=== PATIENT | male | born 1980 | race Caucasian/White ===

== ENCOUNTER 2016-11-22 20:37 | Inpatient (IN) ==
--- NOTE | 2016-11-22 20:45 | Emergency Department Note ---
Disposition Clinical Impression: Acute psychosis, Abnormal urinalysis Disposition: Still a Patient Referrals: NO,PCP [Primary Care Provider] - General Adult HPI - General Chief complaint: ED Psychiatric Symptoms Stated complaint: hallucinations - History of Present Illness HPI Narrative: 36-year-old male with a history of schizophrenia reports to the emergency department via EMS, there is concern for visual and auditory hallucinations. The patient denies any falls or injuries. When asked what is wrong he reports he shows been seeing and hearing things. There is no history of specific physical complaint, the patient reports that he has been masturbating a lot. There is no history of new onset chest pain or maia shortness of breath. There is no history of acute abdominal pain vomiting or diarrhea. The patient has had no trouble moving his arms or legs independently. There is no history of headache neck stiffness rash or fever no convulsion. There is no history of current anticoagulation therapy. The patient has been seen frequently in this emergency department for various complaints. He has a history of psychiatric hospitalization. The patient's ability to give a history is limited. - Related Data Previous Rx's Medication Instructions Recorded LORazepam [Ativan] 1 mg PO BID PRN #60 tablet 07/14/16 Lisinopril [Zestril] 5 mg PO DAILY #30 tablet 07/14/16 OLANZapine [Zyprexa] 15 mg PO HS #30 tablet 07/14/16 TraZODone 50 mg PO HS PRN #30 tablet 07/14/16 Allergies Allergy/AdvReac Type Severity Reaction Status Date / Time No Known Allergies Allergy Verified 11/22/16 20:45 Limitations: ROS unobtainable due to patients medical condition Past Medical History - Past Medical History Medical history: Reports: hyperlipidemia, hypertension, seizures Surgical history: Reports: appendectomy, arthroscopy Psychiatric history: Reports: anxiety, previous psychiatric hospitalization - Social History Smoking Status: Current every day smoker Smokeless Tobacco Status: No Alcohol use: Reports: heavy Drug use: Reports: opiates, marijuana, methamphetamine Physical Exam - General Limitations: altered mental status General appearance: alert - Head Head exam: atraumatic, normocephalic, normal inspection - Eye Eye exam: Present: normal appearance, PERRL, EOMI. Absent: scleral icterus, conjunctival injection, miosis, mydriasis - ENT ENT exam: normal exam, normal oropharynx, mucous membranes moist, TM's normal bilaterally, normal external ear exam - Neck Neck exam: Present: normal inspection, full ROM, trachea midline. Absent: tenderness - Chest Chest inspection: Present: normal inspection, symmetric chest wall rise. Absent : tenderness - Respiratory Respiratory exam: Present: normal lung sounds bilaterally. Absent: respiratory distress - Cardiovascular Cardiovascular exam: Present: regular rate, normal rhythm, normal heart sounds - Abdominal Exam Abdominal exam: Present: soft, Non-Tender, normal bowel sounds. Absent: tenderness, distention, guarding, rebound, rigidity, trauma, pulsatile mass - Extremities Exam Extremities exam: Present: normal inspection, full ROM, normal capillary refill. Absent: tenderness, pedal edema, joint swelling, calf tenderness - Expanded Lower Extremity Exam Lower leg exam: Absent: Homans' sign Neurovascular/Tendon exam: Absent: pulse deficit, motor deficit, sensory deficit , tendon deficit, extremity cold to touch, pallor - Back Exam Back exam: Present: normal inspection, full ROM. Absent: tenderness, CVA tenderness (R), CVA tenderness (L), vertebral tenderness - Neurological Exam Neurological exam: Present: alert, CN II-XII intact, normal gait. Absent: motor sensory deficit - Psychiatric Psychiatric exam: Present: flat affect - Skin Skin exam: Present: warm, dry, intact, normal color. Absent: rash, cyanosis, diaphoresis, erythema, pallor, mottled Course Vital Signs Temperature 98.4 F 11/22/16 20:41 Pulse Rate 86 11/22/16 20:41 Respiratory Rate 14 11/22/16 20:41 Blood Pressure 152/98 11/22/16 20:41 O2 Sat by Pulse Oximetry 97 11/22/16 20:41 Temperature 98.4 F 11/22/16 20:41 Pulse Rate 86 11/22/16 20:41 Respiratory Rate 14 11/22/16 20:41 Blood Pressure 152/98 11/22/16 20:41 O2 Sat by Pulse Oximetry 97 11/22/16 20:41 Oxygen Delivery Oxygen Delivery Room Air Medical Decision Making - MDM Narrative Medical decision making narrative: The patient appears to be stable from a medical standpoint. The patient has a history of psychiatric disease and appears to be decompensating. We have consulted the psychiatric service for evaluation. I suspect the patient will be admitted to the psychiatric unit. It is near shift change, I have checked the patient out to VADIM Delgado and Dr. Tanner who will determine final diagnosis and disposition. - Lab Data Lab results reviewed: Yes I reviewed the patient's lab results. Result diagrams: 11/22/16 20:56 11/22/16 20:56 Lab Results 11/22/16 11/22/16 11/22/16 Range/Units 20:45 20:45 20:56 WBC 12.9 H (4.3-11.1) K/mcL RBC 4.70 (4.19-5.50) M/mcL Hgb 14.9 (12.9-16.9) g/dL Hct 43.9 (37.5-50.1) % MCV 93.4 (83.0-100.0) fL MCH 31.7 (28.0-33.3) pg MCHC 33.9 (31.6-35.5) g/dL RDW 13.4 (11.5-14.5) % Plt Count 387 (140-400) K/mcL MPV 10.2 (9.4-12.4) fL Immature Gran % 0.4 (0-4) % Seg Neutrophils % 68.3 % Lymphocytes % 21.6 % Monocytes % 8.2 % Eosinophils % 1.2 % Basophils % 0.3 % Neutrophils # 8.8 (1.6-8.9) K/mcL Lymphocytes # 2.8 (0.6-4.6) K/mcL Monocytes # 1.1 (0.0-1.3) K/mcL Eosinophils # 0.2 (0.0-0.6) K/mcL Basophils # 0.0 (0.0-0.2) K/mcL Immature Plt Fraction 3.6 (1.1-6.1) % Sodium (136-145) mEq/L Potassium (3.5-4.5) mEq/L Chloride (98-109) mEq/L Carbon Dioxide (19-29) mEq/L BUN (8-26) mg/dL Creatinine (0.72-1.25) mg/dL Est GFR ( Amer) (> 60) Est GFR (Non-Af Amer) (> 60) BUN/Creatinine Ratio (6-26) Glucose (70-99) mg/dL Calculated Osmolality (280-300) Calcium (8.6-10.8) mg/dL Total Bilirubin (0.2-1.2) mg/dL Direct Bilirubin (0.0-0.5) mg/dL Indirect Bilirubin (0.0-1.2) mg/dL AST (5-34) Units/L ALT (0-55) Units/L Alkaline Phosphatase (38-126) Units/L Troponin I (0-0.03) ng/mL Serum Total Protein (6.0-8.3) g/dL Albumin (3.5-5.0) g/dL Globulin (2.4-3.5) g/dL Albumin/Globulin Ratio (1.1-2.2) Lipase (8-78) Units/L Urine Color Yellow (Yellow) Urine Clarity Clear (Clear) Urine pH 6.0 (5.0-8.0) pH Units Ur Specific [place] 1.018 (1.010-1.025) Urine Protein Negative (Neg-Trace) mg/dL Urine Glucose (UA) Normal (Normal) mg/dL Urine Ketones Negative (Negative) mg/dL Urine Blood Negative (Negative) Urine Nitrite Negative (Negative) Urine Bilirubin Negative (Negative) Urine Urobilinogen Normal (Normal) mg/dL Ur Leukocyte Esterase Small H (Negative) Urine Microscopic RBC 0-3 (0-3) per hpf Urine Microscopic WBC 5-15 H (0-3) per hpf Ur Squamous Epith Cells Moderate H (None-Few) per lpf Urine Bacteria None Seen (None-Few) per hpf Hyaline Casts None Seen (None-Few) per lpf Salicylates (15-30) mg/dL Urine Opiates Screen Negative (Ctexuk=922) ng/mL Acetaminophen (10-30) mcg/mL Ur Barbiturates Screen Negative (Tcheuz=484) ng/mL Ur Phencyclidine Scrn Negative (Cutoff=25) ng/mL Ur Amphetamines Screen Negative (Wtfsip=4324) ng/mL U Benzodiazepines Scrn Negative (Imtzuy=423) ng/mL Urine Cocaine Screen Negative (Cutoff= 300) ng/mL U Marijuana (THC) Screen Negative (Cutoff = 50) ng/mL Ethyl Alcohol (0-10) mg/dL 11/22/16 11/22/16 Range/Units 20:56 20:56 WBC (4.3-11.1) K/mcL RBC (4.19-5.50) M/mcL Hgb (12.9-16.9) g/dL Hct (37.5-50.1) % MCV (83.0-100.0) fL MCH (28.0-33.3) pg MCHC (31.6-35.5) g/dL RDW (11.5-14.5) % Plt Count (140-400) K/mcL MPV (9.4-12.4) fL Immature Gran % (0-4) % Seg Neutrophils % % Lymphocytes % % Monocytes % % Eosinophils % % Basophils % % Neutrophils # (1.6-8.9) K/mcL Lymphocytes # (0.6-4.6) K/mcL Monocytes # (0.0-1.3) K/mcL Eosinophils # (0.0-0.6) K/mcL Basophils # (0.0-0.2) K/mcL Immature Plt Fraction (1.1-6.1) % Sodium 140 (136-145) mEq/L Potassium 3.6 (3.5-4.5) mEq/L Chloride 107 (98-109) mEq/L Carbon Dioxide 21 (19-29) mEq/L BUN 13 (8-26) mg/dL Creatinine 0.98 (0.72-1.25) mg/dL Est GFR ( Amer) > 60 (> 60) Est GFR (Non-Af Amer) > 60 (> 60) BUN/Creatinine Ratio 13 (6-26) Glucose 100 H (70-99) mg/dL Calculated Osmolality 290 (280-300) Calcium 9.9 (8.6-10.8) mg/dL Total Bilirubin 0.5 (0.2-1.2) mg/dL Direct Bilirubin 0.2 (0.0-0.5) mg/dL Indirect Bilirubin 0.3 (0.0-1.2) mg/dL AST 25 (5-34) Units/L ALT 27 (0-55) Units/L Alkaline Phosphatase 86 (38-126) Units/L Troponin I 0.00 (0-0.03) ng/mL Serum Total Protein 8.0 (6.0-8.3) g/dL Albumin 4.4 (3.5-5.0) g/dL Globulin 3.6 H (2.4-3.5) g/dL Albumin/Globulin Ratio 1.2 (1.1-2.2) Lipase 15 (8-78) Units/L Urine Color (Yellow) Urine Clarity (Clear) Urine pH (5.0-8.0) pH Units Ur Specific [place] (1.010-1.025) Urine Protein (Neg-Trace) mg/dL Urine Glucose (UA) (Normal) mg/dL Urine Ketones (Negative) mg/dL Urine Blood (Negative) Urine Nitrite (Negative) Urine Bilirubin (Negative) Urine Urobilinogen (Normal) mg/dL Ur Leukocyte Esterase (Negative) Urine Microscopic RBC (0-3) per hpf Urine Microscopic WBC (0-3) per hpf Ur Squamous Epith Cells (None-Few) per lpf Urine Bacteria (None-Few) per hpf Hyaline Casts (None-Few) per lpf Salicylates 5.7 L (15-30) mg/dL Urine Opiates Screen (Nnpcbe=039) ng/mL Acetaminophen < 1.0 L (10-30) mcg/mL Ur Barbiturates Screen (Migkaq=716) ng/mL Ur Phencyclidine Scrn (Cutoff=25) ng/mL Ur Amphetamines Screen (Idkumr=0538) ng/mL U Benzodiazepines Scrn (Dsojia=275) ng/mL Urine Cocaine Screen (Cutoff= 300) ng/mL U Marijuana (THC) Screen (Cutoff = 50) ng/mL Ethyl Alcohol < 10 (0-10) mg/dL
[2016-11-22 21:09] LABS: Basophils % 0.3 %; Eosinophils # 0.2 K/mcL (0.0-0.6); Eosinophils % 1.2 %; Hematocrit 43.9 % (37.5-50.1); Hemoglobin 14.9 g/dL (12.9-16.9); Immature Granulocytes % 0.4 % (0-4); Immature Platelets 3.6 % (1.1-6.1); Lymphocytes # 2.8 K/mcL (0.6-4.6); Lymphocytes % 21.6 %; Mean Corpuscular HGB Conc 33.9 g/dL (31.6-35.5); Mean Corpuscular Hemoglobin 31.7 pg (28.0-33.3); Mean Corpuscular Volume 93.4 fL (83.0-100.0); Mean Platelet Volume 10.2 fL (9.4-12.4); Monocytes # 1.1 K/mcL (0.0-1.3); Monocytes % 8.2 %; Neutrophils # 8.8 K/mcL (1.6-8.9); Platelet Count 387 K/mcL (140-400); Red Cell Distribution Width 13.4 % (11.5-14.5); Segmented Neutrophils % 68.3 %
[2016-11-22 21:14] LABS: Bilirubin,Urine Negative (Negative); Blood,Urine Negative (Negative); Clarity,Urine Clear (Clear); Color,Urine Yellow (Yellow); Glucose,Urine (UA) Normal (Normal); Ketones,Urine Negative (Negative); Leukocyte Esterase,Urine Small (Negative); Nitrite,Urine Negative (Negative); Protein,Urine Negative (Neg-Trace); Specific Gravity,Urine 1.018 (1.010-1.025); Urobilinogen,Urine Normal (Normal)
[2016-11-22 21:17] LABS: Amphetamine Screen,Urine Negative ng/mL (Cutoff=1000); Bacteria,Urine None Seen per hpf (None-Few); Barbiturate Screen,Urine Negative ng/mL (Cutoff=200); Benzodiazepines Screen,Urine Negative ng/mL (Cutoff=200); Cannabinoid Screen,Urine Negative ng/mL (Cutoff = 50); Cocaine Screen,Urine Negative ng/mL (Cutoff= 300); Hyaline Casts,Urine None Seen per lpf (None-Few); Opiate Screen,Urine Negative ng/mL (Cutoff=300); Phencyclidine Screen,Urine Negative ng/mL (Cutoff=25); RBC,Urine 0-3 per hpf (0-3); Squamous Epithelial Cell,Urine Moderate per lpf (None-Few)
[2016-11-22 21:25] LABS: Acetaminophen < 1.0 mcg/mL (10-30); Alanine Aminotransferase 27 Units/L (0-55); Albumin 4.4 g/dL (3.5-5.0); Albumin/Globulin Ratio 1.2 (1.1-2.2); Alkaline Phosphatase 86 Units/L (38-126); Aspartate Amino Transferase 25 Units/L (5-34); BUN/Creatinine Ratio 13 (6-26); Bilirubin,Direct 0.2 mg/dL (0.0-0.5); Bilirubin,Indirect 0.3 mg/dL (0.0-1.2); Bilirubin,Total 0.5 mg/dL (0.2-1.2); Blood Urea Nitrogen 13 mg/dL (8-26); Calcium 9.9 mg/dL (8.6-10.8); Carbon Dioxide 21 mEq/L (19-29); Chloride 107 mEq/L (98-109); Ethanol < 10 mg/dL (0-10); Globulin 3.6 g/dL (2.4-3.5); Glucose 100 mg/dL (70-99); Lipase 15 Units/L (8-78); Osmolality,Calculated 290 (280-300); Potassium 3.6 mEq/L (3.5-4.5); Salicylate 5.7 mg/dL (15-30); Sodium 140 mEq/L (136-145); eGFR For African Americans > 60 (> 60); eGFR For Non-African Americans > 60 (> 60)
--- NOTE | 2016-11-22 23:35 | Emergency Department Note ---
Disposition Clinical Impression: Acute psychosis, Abnormal urinalysis Disposition: Admitted As Inpatient Condition: Fair Referrals: NO,PCP [Primary Care Provider] - General Adult HPI - General Chief complaint: ED Psychiatric Symptoms Stated complaint: hallucinations Time Seen by Provider: 11/22/16 23:22 Source: patient, EMS Limitations: altered mental status - History of Present Illness Pain Scale: 0 - Related Data Previous Rx's Medication Instructions Recorded LORazepam [Ativan] 1 mg PO BID PRN #60 tablet 07/14/16 Lisinopril [Zestril] 5 mg PO DAILY #30 tablet 07/14/16 OLANZapine [Zyprexa] 15 mg PO HS #30 tablet 07/14/16 TraZODone 50 mg PO HS PRN #30 tablet 07/14/16 Allergies Allergy/AdvReac Type Severity Reaction Status Date / Time No Known Allergies Allergy Verified 11/22/16 20:45 Past Medical History - Past Medical History Medical history: Reports: hyperlipidemia, hypertension, seizures Surgical history: Reports: appendectomy, arthroscopy Psychiatric history: Reports: anxiety, previous psychiatric hospitalization - Social History Smoking Status: Current every day smoker Smokeless Tobacco Status: No Alcohol use: Reports: heavy Drug use: Reports: opiates, marijuana, methamphetamine Physical Exam - General Limitations: altered mental status General appearance: alert Course Course Narrative: This patient was signed out to me at shift change from Dr. Sebastian. Please refer to his note for complete details of history and physical examination. At shift change the patient is awaiting psychiatric evaluation. Patient complains of severe left-sided headache for the past 4 days. He denies any injury. A CT of the head without contrast was ordered. Head CT was negative. Patient was evaluated by the psychiatry service and is being admitted to the psychiatric inpatient unit. Vital Signs Temperature 98.4 F 11/22/16 20:41 Pulse Rate 86 11/22/16 20:41 Respiratory Rate 14 11/22/16 20:41 Blood Pressure 152/98 11/22/16 20:41 O2 Sat by Pulse Oximetry 97 11/22/16 20:41 Temperature 98.4 F 11/22/16 20:41 Pulse Rate 76 11/23/16 01:02 Respiratory Rate 14 11/23/16 01:02 Blood Pressure 137/92 11/23/16 01:02 O2 Sat by Pulse Oximetry 98 11/23/16 01:02 Oxygen Delivery Oxygen Delivery Room Air Medical Decision Making - Lab Data Result diagrams: 11/22/16 20:56 11/22/16 20:56 Lab Results 11/22/16 11/22/16 11/22/16 Range/Units 20:45 20:45 20:56 WBC 12.9 H (4.3-11.1) K/mcL RBC 4.70 (4.19-5.50) M/mcL Hgb 14.9 (12.9-16.9) g/dL Hct 43.9 (37.5-50.1) % MCV 93.4 (83.0-100.0) fL MCH 31.7 (28.0-33.3) pg MCHC 33.9 (31.6-35.5) g/dL RDW 13.4 (11.5-14.5) % Plt Count 387 (140-400) K/mcL MPV 10.2 (9.4-12.4) fL Immature Gran % 0.4 (0-4) % Seg Neutrophils % 68.3 % Lymphocytes % 21.6 % Monocytes % 8.2 % Eosinophils % 1.2 % Basophils % 0.3 % Neutrophils # 8.8 (1.6-8.9) K/mcL Lymphocytes # 2.8 (0.6-4.6) K/mcL Monocytes # 1.1 (0.0-1.3) K/mcL Eosinophils # 0.2 (0.0-0.6) K/mcL Basophils # 0.0 (0.0-0.2) K/mcL Immature Plt Fraction 3.6 (1.1-6.1) % Sodium (136-145) mEq/L Potassium (3.5-4.5) mEq/L Chloride (98-109) mEq/L Carbon Dioxide (19-29) mEq/L BUN (8-26) mg/dL Creatinine (0.72-1.25) mg/dL Est GFR ( Amer) (> 60) Est GFR (Non-Af Amer) (> 60) BUN/Creatinine Ratio (6-26) Glucose (70-99) mg/dL Calculated Osmolality (280-300) Calcium (8.6-10.8) mg/dL Total Bilirubin (0.2-1.2) mg/dL Direct Bilirubin (0.0-0.5) mg/dL Indirect Bilirubin (0.0-1.2) mg/dL AST (5-34) Units/L ALT (0-55) Units/L Alkaline Phosphatase (38-126) Units/L Troponin I (0-0.03) ng/mL Serum Total Protein (6.0-8.3) g/dL Albumin (3.5-5.0) g/dL Globulin (2.4-3.5) g/dL Albumin/Globulin Ratio (1.1-2.2) Lipase (8-78) Units/L Urine Color Yellow (Yellow) Urine Clarity Clear (Clear) Urine pH 6.0 (5.0-8.0) pH Units Ur Specific [place] 1.018 (1.010-1.025) Urine Protein Negative (Neg-Trace) mg/dL Urine Glucose (UA) Normal (Normal) mg/dL Urine Ketones Negative (Negative) mg/dL Urine Blood Negative (Negative) Urine Nitrite Negative (Negative) Urine Bilirubin Negative (Negative) Urine Urobilinogen Normal (Normal) mg/dL Ur Leukocyte Esterase Small H (Negative) Urine Microscopic RBC 0-3 (0-3) per hpf Urine Microscopic WBC 5-15 H (0-3) per hpf Ur Squamous Epith Cells Moderate H (None-Few) per lpf Urine Bacteria None Seen (None-Few) per hpf Hyaline Casts None Seen (None-Few) per lpf Salicylates (15-30) mg/dL Urine Opiates Screen Negative (Pauymj=250) ng/mL Acetaminophen (10-30) mcg/mL Ur Barbiturates Screen Negative (Akvobk=660) ng/mL Ur Phencyclidine Scrn Negative (Cutoff=25) ng/mL Ur Amphetamines Screen Negative (Vagiaw=4055) ng/mL U Benzodiazepines Scrn Negative (Nvjtfk=784) ng/mL Urine Cocaine Screen Negative (Cutoff= 300) ng/mL U Marijuana (THC) Screen Negative (Cutoff = 50) ng/mL Ethyl Alcohol (0-10) mg/dL 11/22/16 11/22/16 Range/Units 20:56 20:56 WBC (4.3-11.1) K/mcL RBC (4.19-5.50) M/mcL Hgb (12.9-16.9) g/dL Hct (37.5-50.1) % MCV (83.0-100.0) fL MCH (28.0-33.3) pg MCHC (31.6-35.5) g/dL RDW (11.5-14.5) % Plt Count (140-400) K/mcL MPV (9.4-12.4) fL Immature Gran % (0-4) % Seg Neutrophils % % Lymphocytes % % Monocytes % % Eosinophils % % Basophils % % Neutrophils # (1.6-8.9) K/mcL Lymphocytes # (0.6-4.6) K/mcL Monocytes # (0.0-1.3) K/mcL Eosinophils # (0.0-0.6) K/mcL Basophils # (0.0-0.2) K/mcL Immature Plt Fraction (1.1-6.1) % Sodium 140 (136-145) mEq/L Potassium 3.6 (3.5-4.5) mEq/L Chloride 107 (98-109) mEq/L Carbon Dioxide 21 (19-29) mEq/L BUN 13 (8-26) mg/dL Creatinine 0.98 (0.72-1.25) mg/dL Est GFR ( Amer) > 60 (> 60) Est GFR (Non-Af Amer) > 60 (> 60) BUN/Creatinine Ratio 13 (6-26) Glucose 100 H (70-99) mg/dL Calculated Osmolality 290 (280-300) Calcium 9.9 (8.6-10.8) mg/dL Total Bilirubin 0.5 (0.2-1.2) mg/dL Direct Bilirubin 0.2 (0.0-0.5) mg/dL Indirect Bilirubin 0.3 (0.0-1.2) mg/dL AST 25 (5-34) Units/L ALT 27 (0-55) Units/L Alkaline Phosphatase 86 (38-126) Units/L Troponin I 0.00 (0-0.03) ng/mL Serum Total Protein 8.0 (6.0-8.3) g/dL Albumin 4.4 (3.5-5.0) g/dL Globulin 3.6 H (2.4-3.5) g/dL Albumin/Globulin Ratio 1.2 (1.1-2.2) Lipase 15 (8-78) Units/L Urine Color (Yellow) Urine Clarity (Clear) Urine pH (5.0-8.0) pH Units Ur Specific [place] (1.010-1.025) Urine Protein (Neg-Trace) mg/dL Urine Glucose (UA) (Normal) mg/dL Urine Ketones (Negative) mg/dL Urine Blood (Negative) Urine Nitrite (Negative) Urine Bilirubin (Negative) Urine Urobilinogen (Normal) mg/dL Ur Leukocyte Esterase (Negative) Urine Microscopic RBC (0-3) per hpf Urine Microscopic WBC (0-3) per hpf Ur Squamous Epith Cells (None-Few) per lpf Urine Bacteria (None-Few) per hpf Hyaline Casts (None-Few) per lpf Salicylates 5.7 L (15-30) mg/dL Urine Opiates Screen (Mhwaao=443) ng/mL Acetaminophen < 1.0 L (10-30) mcg/mL Ur Barbiturates Screen (Hiryoj=710) ng/mL Ur Phencyclidine Scrn (Cutoff=25) ng/mL Ur Amphetamines Screen (Uuwpiq=6520) ng/mL U Benzodiazepines Scrn (Cpoihg=617) ng/mL Urine Cocaine Screen (Cutoff= 300) ng/mL U Marijuana (THC) Screen (Cutoff = 50) ng/mL Ethyl Alcohol < 10 (0-10) mg/dL
[2016-11-23] MEDS ORDERED: *HR* LORazepam 1 MG TABLET PO PRN ×5 (03:04→11:07)
[2016-11-23] MEDS ORDERED: *HR* LORazepam 2 MG/ML VIAL IM PRN ×4 (03:04→11:07)
[2016-11-23] MEDS ORDERED: Mag Hydrox/Al Hydrox/Simeth 30 ML UDC PO PRN (03:04)
[2016-11-23] MEDS ORDERED: Haloperidol Lactate 5 MG/ML VIAL IM PRN (03:04)
[2016-11-23] MEDS ORDERED: MOM Conc 10 ML UD.LIQ PO PRN (03:04)
[2016-11-23] MEDS: hydrOXYzine pamoate 25 MG CAPSULE PO PRN (03:29)
[2016-11-23] MEDS: traZODone 50 MG TABLET PO PRN (03:30)
[2016-11-23] MEDS: Ibuprofen 400 MG TABLET PO PRN (03:30)
[2016-11-23] MEDS: Vitamin B Complex/Vit C/Vit E 1 EACH TABLET PO SCH (09:00)
--- NOTE | 2016-11-23 10:13 | Psychiatry History & Physical ---
Date of Encounter: 11/24/16 Time of Encounter: 10:11 History of Present Illness Patient Stated Chief Complaint: hallucnations Medicare Admission Attestation: For traditional Medicare patients the provided hospital inpatient services are reasonable and necessary and in the case of services not specified as inpatient -only under 42 CFR 419.22 (n), that they are appropriately provided as inpatient services in accordance 42 CFR 412.3. For Critical [facility] the patient may reasonably be expected to be discharged or transferred to a hospital within 96 hours after admission to the Critical [facility]. Admitted From: Emergency Dept History of Present Illness: Mr. Miller is a 36 year old male admitted from the emergency department where he presented by EMS complaining of auditory and visual hallucinations poor sleep and increase in anxiety. Patient has been compliant with his medication or follow-up. Past Med Surg Social Fam HX - Past Medical History Medical history: hyperlipidemia, hypertension, seizures - Past Psychiatric History Psychiatric history: Reports: schizophrenia, previous psychiatric hospitalization Family psychiatric history: Unknown Family History of Suicide: Unknown - Past Surgical History Surgical History: appendectomy, arthroscopy - Social History Smoking Status: Current every day smoker Smokeless Tobacco Status: No Alcohol use: heavy Drug use: opiates, marijuana, methamphetamine - Family History Father Hx Family Cardiac Disorders: Yes Medications & Allergies LORazepam [Ativan] 1 mg PO BID PRN #60 tablet 07/14/16 [Rx] Lisinopril [Zestril] 5 mg PO DAILY #30 tablet 07/14/16 [Rx] OLANZapine [Zyprexa] 15 mg PO HS #30 tablet 07/14/16 [Rx] TraZODone 50 mg PO HS PRN #30 tablet 07/14/16 [Rx] Aspirin [Ecotrin] 325 mg PO DAILY 11/23/16 [History] Allergies No Known Allergies Allergy (Verified 11/22/16 20:45) Review of Systems Psychiatric: Reports: depression, anxiety, auditory hallucinations, visual hallucinations Mental Status Exam Patient orientation: Yes Person, Yes Time, Yes Place Level of alertness: Sedated Patient appearance: Unkempt, Disheveled, Obese Behavior: cooperative, nervous, anxious, guarded Psychomotor activity: Slowed Eye contact: Minimal Contact Mood description: Anxious, Irritable Affect description: constricted, dysphoric, anxious Speech pattern: Limited, Mumbled Speech volume: Normal Thought process: Circumstantial, Tangential, Disorganized Thought content: No Suicidal ideation, No Homicidal ideation, No Overt delusions Perceptual disturbances: Yes Auditory hallucinations, Yes Visual hallucinations Attention span: Unable to Sustain Attention Memory description: Immediate Impaired, Recent Impaired Patient reliability: Questionable Historian Intelligence estimate: Average Judgment: Poor Insight: Minimal Results - Vital Signs Vital signs: Temp Pulse Resp BP Pulse Ox 99 F 79 16 115/69 98 11/23/16 09:00 11/23/16 09:00 11/23/16 09:00 11/23/16 09:00 11/23/16 01:02 - Labs Labs: Laboratory Last Values WBC 12.9 K/mcL (4.3-11.1) H 11/22/16 20:56 RBC 4.70 M/mcL (4.19-5.50) 11/22/16 20:56 Hgb 14.9 g/dL (12.9-16.9) 11/22/16 20:56 Hct 43.9 % (37.5-50.1) 11/22/16 20:56 MCV 93.4 fL (83.0-100.0) 11/22/16 20:56 MCH 31.7 pg (28.0-33.3) 11/22/16 20:56 MCHC 33.9 g/dL (31.6-35.5) 11/22/16 20:56 RDW 13.4 % (11.5-14.5) 11/22/16 20:56 Plt Count 387 K/mcL (140-400) 11/22/16 20:56 MPV 10.2 fL (9.4-12.4) 11/22/16 20:56 Immature Gran % 0.4 % (0-4) 11/22/16 20:56 Seg Neutrophils % 68.3 % 11/22/16 20:56 Lymphocytes % 21.6 % 11/22/16 20:56 Monocytes % 8.2 % 11/22/16 20:56 Eosinophils % 1.2 % 11/22/16 20:56 Basophils % 0.3 % 11/22/16 20:56 Neutrophils # 8.8 K/mcL (1.6-8.9) 11/22/16 20:56 Lymphocytes # 2.8 K/mcL (0.6-4.6) 11/22/16 20:56 Monocytes # 1.1 K/mcL (0.0-1.3) 11/22/16 20:56 Eosinophils # 0.2 K/mcL (0.0-0.6) 11/22/16 20:56 Basophils # 0.0 K/mcL (0.0-0.2) 11/22/16 20:56 Immature Plt Fraction 3.6 % (1.1-6.1) 11/22/16 20:56 Sodium 140 mEq/L (136-145) 11/22/16 20:56 Potassium 3.6 mEq/L (3.5-4.5) 11/22/16 20:56 Chloride 107 mEq/L (98-109) 11/22/16 20:56 Carbon Dioxide 21 mEq/L (19-29) 11/22/16 20:56 BUN 13 mg/dL (8-26) 11/22/16 20:56 Creatinine 0.98 mg/dL (0.72-1.25) 11/22/16 20:56 Est GFR ( Amer) > 60 (> 60) 11/22/16 20:56 Est GFR (Non-Af Amer) > 60 (> 60) 11/22/16 20:56 BUN/Creatinine Ratio 13 (6-26) 11/22/16 20:56 Glucose 100 mg/dL (70-99) H 11/22/16 20:56 Calculated Osmolality 290 (280-300) 11/22/16 20:56 Calcium 9.9 mg/dL (8.6-10.8) 11/22/16 20:56 Total Bilirubin 0.5 mg/dL (0.2-1.2) 11/22/16 20:56 Direct Bilirubin 0.2 mg/dL (0.0-0.5) 11/22/16 20:56 Indirect Bilirubin 0.3 mg/dL (0.0-1.2) 11/22/16 20:56 AST 25 Units/L (5-34) 11/22/16 20:56 ALT 27 Units/L (0-55) 11/22/16 20:56 Alkaline Phosphatase 86 Units/L (38-126) 11/22/16 20:56 Troponin I 0.00 ng/mL (0-0.03) 11/22/16 20:56 Serum Total Protein 8.0 g/dL (6.0-8.3) 11/22/16 20:56 Albumin 4.4 g/dL (3.5-5.0) 11/22/16 20:56 Globulin 3.6 g/dL (2.4-3.5) H 11/22/16 20:56 Albumin/Globulin Ratio 1.2 (1.1-2.2) 11/22/16 20:56 Lipase 15 Units/L (8-78) 11/22/16 20:56 Urine Color Yellow (Yellow) 11/22/16 20:45 Urine Clarity Clear (Clear) 11/22/16 20:45 Urine pH 6.0 pH Units (5.0-8.0) 11/22/16 20:45 Ur Specific [place] 1.018 (1.010-1.025) 11/22/16 20:45 Urine Protein Negative mg/dL (Neg-Trace) 11/22/16 20:45 Urine Glucose (UA) Normal mg/dL (Normal) 11/22/16 20:45 Urine Ketones Negative mg/dL (Negative) 11/22/16 20:45 Urine Blood Negative (Negative) 11/22/16 20:45 Urine Nitrite Negative (Negative) 11/22/16 20:45 Urine Bilirubin Negative (Negative) 11/22/16 20:45 Urine Urobilinogen Normal mg/dL (Normal) 11/22/16 20:45 Ur Leukocyte Esterase Small (Negative) H 11/22/16 20:45 Urine Microscopic RBC 0-3 per hpf (0-3) 11/22/16 20:45 Urine Microscopic WBC 5-15 per hpf (0-3) H 11/22/16 20:45 Ur Squamous Epith Cells Moderate per lpf (None-Few) H 11/22/16 20:45 Urine Bacteria None Seen per hpf (None-Few) 11/22/16 20:45 Hyaline Casts None Seen per lpf (None-Few) 11/22/16 20:45 Salicylates 5.7 mg/dL (15-30) L 11/22/16 20:56 Urine Opiates Screen Negative ng/mL (Lbemvj=640) 11/22/16 20:45 Acetaminophen < 1.0 mcg/mL (10-30) L 11/22/16 20:56 Ur Barbiturates Screen Negative ng/mL (Nxvtbw=298) 11/22/16 20:45 Ur Phencyclidine Scrn Negative ng/mL (Cutoff=25) 11/22/16 20:45 Ur Amphetamines Screen Negative ng/mL (Dcplqq=0357) 11/22/16 20:45 U Benzodiazepines Scrn Negative ng/mL (Ljcoun=208) 11/22/16 20:45 Urine Cocaine Screen Negative ng/mL (Cutoff= 300) 11/22/16 20:45 U Marijuana (THC) Screen Negative ng/mL (Cutoff = 50) 11/22/16 20:45 Ethyl Alcohol < 10 mg/dL (0-10) 11/22/16 20:56 Assessment and Plan (1) Schizophrenia Current visit: Yes Status: Acute Plan: Admit inpatient for safety and stabilization, Close observation, Suicide Precautions per unit protocol, Encourage participation in unit milieu, Group Therapy, Monitor sleep, Monitor appetite Risks, benefits, side effects, alternatives discussed w/pt: Yes Patient agreeable to treatment: Yes Estimated Length of Stay (Days): 5 Qualifiers: Schizophrenia type: paranoid schizophrenia Qualified Code(s): F20.0 - Paranoid schizophrenia
[2016-11-23] MEDS ORDERED: traZODone 50 MG TABLET PO PRN (10:52)
[2016-11-23] MEDS: OLANZapine 5 MG TAB.RAPDIS PO SCH (21:44)
[2016-11-24] MEDS: Vitamin B Complex/Vit C/Vit E 1 EACH TABLET PO SCH (08:22)
--- NOTE | 2016-11-24 13:51 | Psychiatry Progress Note ---
Date of Encounter: 11/24/16 Time of Encounter: 13:30 Subjective Interval history: Patient is here for follow-up. Nursing staff reports he is out of the room and participating in activity groups he is nuts lethargic or sedated implant was a medication denies suicidal ideation. Review of Systems Psychiatric: Reports: depression, anxiety, auditory hallucinations, visual hallucinations Objective: Exam Patient orientation: Yes Person, Yes Time, Yes Place Level of alertness: Alert Patient appearance: Appropriate, Obese Behavior: cooperative, nervous, anxious, guarded Psychomotor activity: Slowed Eye contact: Minimal Contact Mood description: Anxious Affect description: blunted Speech pattern: Limited Speech volume: Normal Thought process: Circumstantial, Tangential, Disorganized Thought content: No Suicidal ideation, No Homicidal ideation, No Overt delusions Perceptual disturbances: Yes Auditory hallucinations, Yes Visual hallucinations Judgment: Poor Insight: Minimal Results - Vital Signs Vital Signs: Temp Pulse Resp BP Pulse Ox 98 F 73 16 141/90 98 11/24/16 09:00 11/24/16 09:00 11/24/16 09:00 11/24/16 09:00 11/23/16 01:02 Assessment and Plan (1) Schizophrenia Current visit: Yes Status: Acute Plan: Continue hospitalization, Close observation, Suicide Precautions per unit protocol, Encourage participation in unit milieu, Group Therapy, Monitor sleep, Monitor appetite Risks, benefits, side effects, alternatives discussed w/pt: Yes Patient agreeable to treatment: Yes Qualifiers: Schizophrenia type: paranoid schizophrenia Qualified Code(s): F20.0 - Paranoid schizophrenia Consult Discharge Plan - Plan Referrals: [facility] [Outside] - 11/26/16 10:00 am (The above appointment is with Jill Jackson, counselor. You will also see Dr. carcamo on 12/03/2016 at 6: 00pm. )
[2016-11-24] MEDS: Ibuprofen 400 MG TABLET PO PRN (14:45)
[2016-11-24] MEDS: *HR* LORazepam 1 MG TABLET PO PRN (17:11)
--- NOTE | 2016-11-24 17:45 | Electrocardiograph Report ---
[place] [id number] Test Date: 2016-11-22 Pat Name: Troy Miller Department: 105 Room: 1A42 Gender: M Tester Operator: : 1980 Requested By: Robbie Sebastian Order Number: [id number] Reading MD: Bernie Stein Measurements Intervals [place] Rate: 80 P: 7 AL: 130 QRS: 14 QRSD: 103 T: 8 QT: 378 QTc: 414 Interpretive Statements SINUS RHYTHM Electronically Signed On 11-24-2016 17:43:24 EST by Bernie Stein
[2016-11-24] MEDS: OLANZapine 5 MG TAB.RAPDIS PO SCH (20:23)
[2016-11-25] MEDS: Vitamin B Complex/Vit C/Vit E 1 EACH TABLET PO SCH (09:31)
--- NOTE | 2016-11-25 14:08 | Psychiatry Progress Note ---
Date of Encounter: 11/25/16 Time of Encounter: 14:08 Subjective Interval history: Patient is here for follow-up. Nursing staff reports he was noticed to be internally stimulated at times but he is able to communicate appropriately and attends some groups. Compliant with medication and his ADLs improving. No agitation or disruptive behavior reported. Review of Systems Psychiatric: Reports: depression, anxiety, auditory hallucinations, visual hallucinations Objective: Exam Patient orientation: Yes Person, Yes Time, Yes Place Level of alertness: Alert Patient appearance: Appropriate, Obese Behavior: cooperative, nervous, anxious, distractible Psychomotor activity: Slowed Eye contact: Maintains Eye Contact Mood description: Anxious Affect description: blunted Speech pattern: Normal rate, Normal rhythm, Appropriate, Coherent, Limited, Impoverished Speech volume: Normal Thought process: Circumstantial, Tangential, Disorganized Thought content: No Suicidal ideation, No Homicidal ideation, No Overt delusions Perceptual disturbances: Yes Auditory hallucinations, Yes Visual hallucinations Judgment: Poor Insight: Minimal Results - Vital Signs Vital Signs: Temp Pulse Resp BP Pulse Ox 97.7 F 81 14 117/87 98 11/25/16 09:00 11/25/16 09:00 11/25/16 09:00 11/25/16 09:00 11/23/16 01:02 Assessment and Plan (1) Schizophrenia Current visit: Yes Status: Acute Plan: Continue hospitalization, Close observation, Suicide Precautions per unit protocol, Encourage participation in unit milieu, Group Therapy, Monitor sleep, Monitor appetite Risks, benefits, side effects, alternatives discussed w/pt: Yes Patient agreeable to treatment: Yes Qualifiers: Schizophrenia type: paranoid schizophrenia Qualified Code(s): F20.0 - Paranoid schizophrenia Consult Discharge Plan - Plan Referrals: [facility] [Outside] - 12/03/16 6:00 pm (The above appointment is with Dr. Wan. You will also see Jill Jackson for counseling on 12/07/2016 at 11:00am.)
[2016-11-25] MEDS: *HR* LORazepam 1 MG TABLET PO PRN (14:16)
[2016-11-25] MEDS: Ibuprofen 400 MG TABLET PO PRN ×2 (14:17→20:34)
[2016-11-25] MEDS: traZODone 50 MG TABLET PO PRN (20:34)
[2016-11-25] MEDS: OLANZapine 5 MG TAB.RAPDIS PO SCH (20:34)
[2016-11-26] MEDS: Vitamin B Complex/Vit C/Vit E 1 EACH TABLET PO SCH (08:11)
[2016-11-26] MEDS: Ibuprofen 400 MG TABLET PO PRN ×2 (08:11→20:43)
--- NOTE | 2016-11-26 13:26 | Psychiatry Progress Note ---
Date of Encounter: 11/26/16 Time of Encounter: 13:26 Subjective Interval history: Patient is seen for follow-up. Nursing staff reports he continued to be internally stimulated and hallucinating is unable to carry a conversation. There is compliant with medication and his medication was increased by adding Zyprexa 10 mg daily in addition to 15 mg at bedtime. Requests for hearing was presented to probate court to continue his stabilization on medication. His discharge plans and placement are ongoing. Review of Systems Psychiatric: Reports: depression, anxiety, auditory hallucinations, visual hallucinations Objective: Exam Patient orientation: Yes Person, Yes Time, Yes Place Level of alertness: Alert Patient appearance: Unkempt, Bizarre, Obese Behavior: cooperative, nervous, anxious, suspicious, distractible Psychomotor activity: Slowed Eye contact: Minimal Contact Mood description: Anxious Affect description: blunted, flat Speech pattern: Normal rate, Normal rhythm, Appropriate, Coherent, Limited, Impoverished, Mumbled Speech volume: Normal Thought process: Circumstantial, Tangential, Disorganized Thought content: No Suicidal ideation, No Homicidal ideation, No Overt delusions Perceptual disturbances: Yes Auditory hallucinations, Yes Visual hallucinations Judgment: Poor Insight: Minimal Results - Vital Signs Vital Signs: Temp Pulse Resp BP Pulse Ox 97.9 F 73 18 132/86 98 11/26/16 09:00 11/26/16 09:00 11/26/16 09:00 11/26/16 09:00 11/23/16 01:02 Assessment and Plan (1) Schizophrenia Current visit: Yes Status: Acute Plan: Continue hospitalization, Close observation, Suicide Precautions per unit protocol, Encourage participation in unit milieu, Group Therapy, Monitor sleep, Monitor appetite Additional Plan: We will increase olanzapine to 10 mg daily and 15 mg at bedtime to improve and stabilize his psychosis. Risks, benefits, side effects, alternatives discussed w/pt: Yes Patient agreeable to treatment: Yes Qualifiers: Schizophrenia type: paranoid schizophrenia Qualified Code(s): F20.0 - Paranoid schizophrenia Consult Discharge Plan - Plan Referrals: [facility] [Outside] - 12/03/16 6:00 pm (The above appointment is with Jill Jackson for counseling. You will also see Yaritza Ortiz, psychiatric prescriber, on )
[2016-11-26] MEDS: OLANZapine 10 MG TAB.RAPDIS PO SCH (13:53)
[2016-11-26] MEDS: traZODone 50 MG TABLET PO PRN (20:43)
[2016-11-26] MEDS: OLANZapine 5 MG TAB.RAPDIS PO SCH (21:32)
[2016-11-27] MEDS: Vitamin B Complex/Vit C/Vit E 1 EACH TABLET PO SCH (08:17)
[2016-11-27] MEDS: OLANZapine 10 MG TAB.RAPDIS PO SCH (08:21)
[2016-11-27] MEDS: Ibuprofen 400 MG TABLET PO PRN ×2 (08:41→16:25)
--- NOTE | 2016-11-27 12:50 | Psychiatry Progress Note ---
Date of Encounter: 11/27/16 Time of Encounter: 12:30 Subjective Interval history: Patient is seen for follow-up. Nursing and social work staff and patients continue to be hallucinating and distractible and paranoid. He requested to see a truck leasing manager and visited with him and he stated that he feels better. marriage and family social worker indicated that his father reported that patient has not been stable for several months and has been out of medication for several weeks prior to admission he is noncompliant consistently and he supports the treatment with longer acting injectable antipsychotics. Patient is responding well to increase in medication is less lethargic and he is more interactive in a limited way. Speech continues to be very and at times unintelligible. Review of Systems Psychiatric: Reports: depression, anxiety, auditory hallucinations, visual hallucinations Objective: Exam Patient orientation: Yes Person, Yes Time, Yes Place Level of alertness: Alert Patient appearance: Unkempt, Disheveled, Bizarre, Obese Behavior: cooperative, nervous, anxious, suspicious, distractible Psychomotor activity: Slowed Eye contact: Minimal Contact Mood description: Anxious Affect description: blunted, flat Speech pattern: Normal rate, Normal rhythm, Appropriate, Coherent, Limited, Impoverished, Mumbled Speech volume: Normal Thought process: Circumstantial, Tangential, Disorganized Thought content: No Suicidal ideation, No Homicidal ideation, No Overt delusions Perceptual disturbances: Yes Auditory hallucinations, Yes Visual hallucinations Judgment: Poor Insight: Minimal Results - Vital Signs Vital Signs: Temp Pulse Resp BP Pulse Ox 98.2 F 77 18 133/87 98 11/27/16 09:00 11/27/16 09:00 11/27/16 09:00 11/27/16 09:00 11/23/16 01:02 Assessment and Plan (1) Schizophrenia Current visit: Yes Status: Acute Plan: Continue hospitalization, Close observation, Suicide Precautions per unit protocol, Encourage participation in unit milieu, Group Therapy, Monitor sleep, Monitor appetite Risks, benefits, side effects, alternatives discussed w/pt: Yes Patient agreeable to treatment: Yes Qualifiers: Schizophrenia type: paranoid schizophrenia Qualified Code(s): F20.0 - Paranoid schizophrenia Consult Discharge Plan - Plan Referrals: [facility] [Outside] - 12/03/16 6:00 pm (The above appointment is with Jill Jackson for counseling. You will also see Yaritza Ortiz, psychiatric prescriber, on 12/29/2016 at 1:00pm. )
[2016-11-27] MEDS: hydrOXYzine pamoate 25 MG CAPSULE PO PRN (16:25)
[2016-11-27] MEDS: OLANZapine 5 MG TAB.RAPDIS PO SCH (20:58)
[2016-11-27] MEDS: traZODone 50 MG TABLET PO PRN (20:58)
[2016-11-28] MEDS: Vitamin B Complex/Vit C/Vit E 1 EACH TABLET PO SCH (08:51)
[2016-11-28] MEDS: OLANZapine 10 MG TAB.RAPDIS PO SCH (08:51)
[2016-11-28] MEDS: Ibuprofen 400 MG TABLET PO PRN ×2 (08:55→17:31)
--- NOTE | 2016-11-28 12:38 | Psychiatry Progress Note ---
Date of Encounter: 11/28/16 Time of Encounter: 12:20 Subjective Interval history: Vincent is seen today for follow-up. He reports that he is "fine." He is interested in going home but may also consider [facility] as he may not be able to go home. He denies side effects of current meds. He states she is sleeping well. We will continue to work with respite about appropriate discharge when a bed becomes available. He does appear to be able to communicate and get his needs met with staff but withdraws to his room a lot. Meeting with the supervisor paper machine did allow patient to feel less concerned about his presybeterian delusions. Review of Systems Psychiatric: Reports: depression, anxiety, auditory hallucinations, visual hallucinations Objective: Exam Patient orientation: Yes Person, Yes Time, Yes Place Level of alertness: Alert Patient appearance: Unkempt, Disheveled, Obese Behavior: cooperative, nervous, anxious, suspicious, distractible Psychomotor activity: Slowed Eye contact: Diverts Contact Mood description: Euthymic/stable Affect description: blunted, flat, incongruent with mood Speech pattern: Slowed, Limited, Impoverished, Mumbled Speech volume: Normal Thought process: [place], Slowed Thinking Thought content: No Suicidal ideation, No Homicidal ideation, No Overt delusions , Yes Latter Day delusion Perceptual disturbances: Yes Auditory hallucinations, Yes Visual hallucinations Judgment: Poor Insight: Minimal Results - Vital Signs Vital Signs: Temp Pulse Resp BP Pulse Ox 97.8 F 83 16 115/82 98 11/28/16 09:00 11/28/16 09:00 11/28/16 09:00 11/28/16 09:00 11/23/16 01:02 Assessment and Plan (1) Schizophrenia Current visit: Yes Status: Acute Plan: Continue hospitalization, Close observation, Suicide Precautions per unit protocol, Encourage participation in unit milieu, Group Therapy, Monitor sleep, Monitor appetite Additional Plan: Continue with current medications as olanzapine was recently increased. Patient is reporting some sedation and we will monitor for this. He does seem to be returning to baseline but is still somewhat guarded and confused. Continue to work with outpatient respite for discharge planning. Monitor behavior and mood. Risks, benefits, side effects, alternatives discussed w/pt: Yes Patient agreeable to treatment: Yes Qualifiers: Schizophrenia type: paranoid schizophrenia Qualified Code(s): F20.0 - Paranoid schizophrenia Consult Discharge Plan - Plan Referrals: [facility] [Outside] - 12/03/16 6:00 pm (The above appointment is with Jill Jackson for counseling. You will also see Yaritza Ortiz, psychiatric prescriber, on 12/29/2016 at 1:00pm. )
[2016-11-28] MEDS: hydrOXYzine pamoate 25 MG CAPSULE PO PRN (17:31)
[2016-11-28] MEDS: OLANZapine 5 MG TAB.RAPDIS PO SCH (21:00)
[2016-11-28] MEDS: traZODone 50 MG TABLET PO PRN (21:00)
[2016-11-29] MEDS: OLANZapine 10 MG TAB.RAPDIS PO SCH (09:07)
[2016-11-29] MEDS: Vitamin B Complex/Vit C/Vit E 1 EACH TABLET PO SCH (09:07)
[2016-11-29] MEDS: Ibuprofen 400 MG TABLET PO PRN (09:08)
--- NOTE | 2016-11-29 13:13 | Psychiatry Progress Note ---
Date of Encounter: 11/29/16 Time of Encounter: 11:40 Subjective Interval history: Patient is seen today for follow-up and appears to be having some issues with irritability. He would like to be discharged today but I have reviewed the records with patient and they indicate that patient's dad wants him to go to [facility] and not home. Patient did verbalize an understanding of this and handled this information pretty well considering. He did require when necessary medication today because of increased agitation. Patient is not interested in switching back to the meds [facility] [place] I did review this list of medications with the patient. We discussed he is on some similar medications here but not exactly the same thing. Review of Systems Psychiatric: Reports: depression, anxiety, auditory hallucinations, irritability Objective: Exam Patient orientation: Yes Person, Yes Time, Yes Place Level of alertness: Alert Patient appearance: Unkempt, Disheveled Behavior: restless, suspicious, distractible Psychomotor activity: Slowed Eye contact: Diverts Contact Mood description: Euthymic/stable Affect description: blunted, flat, incongruent with mood Speech pattern: Slowed, Limited, Impoverished, Mumbled Speech volume: Normal Thought process: [place], Slowed Thinking Thought content: No Suicidal ideation, No Homicidal ideation, No Overt delusions Perceptual disturbances: Yes Auditory hallucinations Judgment: Limited Insight: Minimal Results - Vital Signs Vital Signs: Temp Pulse Resp BP Pulse Ox 98 F 111 18 130/85 98 11/29/16 09:00 11/29/16 09:00 11/29/16 09:00 11/29/16 09:00 11/23/16 01:02 Assessment and Plan (1) Schizophrenia Current visit: Yes Status: Acute Plan: Continue hospitalization, Close observation, Suicide Precautions per unit protocol, Encourage participation in unit milieu, Group Therapy, Monitor sleep, Monitor appetite Additional Plan: We will continue with current medication. Patient reports that he has done well with Risperdal, Ativan, Vistaril. Given that he has stabilized with current meds we will not make changes this late in the hospitalization. He did require some when necessary's today because he thought he was supposed to leave the hospital today. I discussed with him that we will await evaluation by [facility]/placement prior to discharge. Risks, benefits, side effects, alternatives discussed w/pt: Yes Patient agreeable to treatment: Yes Qualifiers: Schizophrenia type: paranoid schizophrenia Qualified Code(s): F20.0 - Paranoid schizophrenia Consult Discharge Plan - Plan Referrals: [facility] [Outside] - 12/03/16 6:00 pm (The above appointment is with Jill Jackson for counseling. You will also see Yaritza Ortiz, psychiatric prescriber, on 12/29/2016 at 1:00pm. )
[2016-11-29] MEDS: OLANZapine 5 MG TAB.RAPDIS PO SCH (20:38)
[2016-11-29] MEDS: traZODone 50 MG TABLET PO PRN (20:39)
[2016-11-30] MEDS: Vitamin B Complex/Vit C/Vit E 1 EACH TABLET PO SCH (08:44)
[2016-11-30] MEDS: OLANZapine 10 MG TAB.RAPDIS PO SCH (08:44)
[2016-11-30] MEDS ORDERED: Haloperidol Lactate 5 MG/ML VIAL IM PRN ×2 (10:01→10:06)
--- NOTE | 2016-11-30 13:52 | Psychiatry Progress Note ---
Date of Encounter: 11/30/16 Time of Encounter: 13:52 Subjective Interval history: Patient was here for follow-up. His reported to have occasional irritability that required when necessary medication. Otherwise he denied hearing voices and he reports "sleep and he is more interactive with other patient's staff. His discharge plans are ongoing as a possibility going home with his father if placement cannot be done. His ADLs are improving, he is pleasant and appropriate. Review of Systems Psychiatric: Reports: depression, anxiety, auditory hallucinations, irritability Objective: Exam Patient orientation: Yes Person, Yes Time, Yes Place Level of alertness: Alert Patient appearance: Unkempt, Disheveled Behavior: restless, suspicious, distractible Psychomotor activity: Slowed Eye contact: Diverts Contact Mood description: Anxious Affect description: blunted, flat, incongruent with mood Speech pattern: Slowed, Limited, Impoverished, Mumbled Speech volume: Normal Thought process: [place], Slowed Thinking Thought content: No Suicidal ideation, No Homicidal ideation, No Overt delusions Perceptual disturbances: Yes Auditory hallucinations Judgment: Limited Insight: Minimal Results - Vital Signs Vital Signs: Temp Pulse Resp BP Pulse Ox 98.2 F 107 16 120/81 98 11/30/16 08:56 11/30/16 08:56 11/30/16 08:56 11/30/16 08:56 11/23/16 01:02 Assessment and Plan (1) Schizophrenia Current visit: Yes Status: Acute Plan: Continue hospitalization, Close observation, Suicide Precautions per unit protocol, Encourage participation in unit milieu, Group Therapy, Monitor sleep, Monitor appetite Risks, benefits, side effects, alternatives discussed w/pt: Yes Patient agreeable to treatment: Yes Qualifiers: Schizophrenia type: paranoid schizophrenia Qualified Code(s): F20.0 - Paranoid schizophrenia Consult Discharge Plan - Plan Referrals: [facility] [Outside] - 12/03/16 6:00 pm (The above appointment is with Jill Jackson for counseling. You will also see Yaritza Ortiz psychiatric prescriber, on 12/29/2016 at 1:00pm. )
[2016-11-30] MEDS: Ibuprofen 400 MG TABLET PO PRN (14:40)
[2016-11-30] MEDS: Nicotine 14 MG PATCH.TD24 TD SCH (16:21)
[2016-11-30] MEDS: OLANZapine 5 MG TAB.RAPDIS PO SCH (21:29)
[2016-12-01 08:35] VITALS: BP 122/80
[2016-12-01] MEDS: Nicotine 14 MG PATCH.TD24 TD SCH (08:39)
[2016-12-01] MEDS: OLANZapine 10 MG TAB.RAPDIS PO SCH (08:39)
[2016-12-01] MEDS: Vitamin B Complex/Vit C/Vit E 1 EACH TABLET PO SCH (08:40)
--- NOTE | 2016-12-01 09:27 | Discharge Summary ---
Date of Encounter: 12/01/16 Time of Encounter: 09:21 Diagnosis - Discharge Diagnosis (1) Schizophrenia Status: Acute Qualifiers: Schizophrenia type: paranoid schizophrenia Qualified Code(s): F20.0 - Paranoid schizophrenia Medications - Discharge Medications Prescriptions: Aspirin [Ecotrin] 325 mg PO DAILY #30 tablet. Lisinopril [Zestril] 5 mg PO DAILY #30 tablet OLANZapine [Zyprexa Zydis] 10 mg PO DAILY #30 tab.rapdis OLANZapine [Zyprexa] 15 mg PO HS #30 tablet LORazepam [Ativan] 1 mg PO BID PRN #60 tablet 07/14/16 [Rx] TraZODone 50 mg PO HS PRN #30 tablet 07/14/16 [Rx] Aspirin [Ecotrin] 325 mg PO DAILY #30 tablet. 12/01/16 [Rx] Lisinopril [Zestril] 5 mg PO DAILY #30 tablet 12/01/16 [Rx] OLANZapine [Zyprexa Zydis] 10 mg PO DAILY #30 tab.rapdis 12/01/16 [Rx] OLANZapine [Zyprexa] 15 mg PO HS #30 tablet 12/01/16 [Rx] Vitamin B Complex/Vit C/Vit E [Stresstab] 1 each PO DAILY tablet 12/01/16 [Rx] Allergies No Known Allergies Allergy (Verified 11/22/16 20:45) Provider Date of admission: 11/23/16 11:39 Primary care physician: PCP NO Consults: 11/24/16 15:41 Consult to Pastoral Services [CONS] Routine Comment: PT WOULD LIKE TO SPEAK WITH A PREIST Discharging clinician: Antonio Philip Assessment and Plan - Patient/Caregiver Discharge Instructions Activity: resume usual activities as tolerated Diet: regular diet Additional Instructions: Recommend that his outpatient psychiatrist consider converting olanzapine to olanzapine long-acting injectable in the near future to improve patient compliance with medication. - Follow up Plan Follow up with: [facility] [Outside] - 12/03/16 6:00 pm (The above appointment is with Jill Jackson for counseling. You will also see Yaritza Ortiz psychiatric prescriber, on 12/29/2016 at 1:00pm. ) Functional capacity at discharge: independent ambulation Overall status at discharge: Stable Disposition: Home, Self-Care Hospital Course Hospital course: Mr. Miller is a 36 year old male admitted exacerbation of psychosis with auditory and visual hallucinations and noncompliance with medication and decompensates. For details admission please see H&P On the units patient medication were adjusted his olanzapine was increased and he responded well to medication changes he was less irritable and reported less auditory hallucinations, he was also religiously preoccupied and could not participate effectively and hopes that he was interacting appropriately with peers and staff. Prior to discharge patient was medically stable, denied auditory and visual hallucinations, denies any side effects with the medication he was not suicidal or homicidal. He expressed understanding of treatment and aware of his follow-up. We discussed possible replacement of oral medication with long acting, antipsychotics injectable this recommendation would be addressed to his outpatient psychiatrist. - Time Spent with Patient Total time spent providing and/or coordinating discharge services: Less than 30 minutes Quality - Multiple Antipsychotics Patient discharged on 2 or more antipsychotic medications: No Procedures - Procedures Procedures: Medication Management, Crisis Stabilization, Supportive Therapy, Group Therapy, Psychoeducational Therapy Mental Status Exam - Mental Status Exam Patient orientation: Yes Person, Yes Time, Yes Place Level of alertness: Alert Patient appearance: Unkempt, Disheveled Behavior: calm, cooperative, restless, distractible Psychomotor activity: Normal Eye contact: Diverts Contact Mood description: Euthymic/stable, Anxious Affect description: blunted, flat, incongruent with mood Speech pattern: Appropriate, Limited, Impoverished Speech Volume: Normal Thought process: [place], Slowed Thinking Thought Content: No Suicidal ideation, No Homicidal ideation, No Overt delusions Perceptual Disturbances: Yes Auditory hallucinations Judgment: Limited Insight: Minimal
[2016-12-01] MEDS ORDERED: FLU VACC QS2016-17 36MOS UP/PF 0.5 ML SYRINGE IM ONE (09:57)
== END 2016-12-01 11:20 | disposition home or self-care (01) | DRG 750 ==
LOC: EMEROO 20:37 → 1ANU 20:37 → SUATTDRO 11-23 02:42 → 1ANU 11-23 02:48
PROVIDERS: ADMIT Psychiatry & Neurology Psychiatry; ATTEND Psychiatry & Neurology Psychiatry

== ENCOUNTER 2016-12-05 01:09 | Inpatient (IN) ==
--- NOTE | 2016-12-05 01:51 | Emergency Department Note ---
Disposition Clinical Impression: Auditory hallucinations UTI (urinary tract infection) Qualifiers: Urinary tract infection type: acute cystitis Hematuria presence: with hematuria Qualified Code(s): N30.01 - Acute cystitis with hematuria Disposition: Admitted As Inpatient Condition: Good Referrals: NO,PCP [Primary Care Provider] - Forms: ED Satisfaction Letter General Adult HPI - General Chief complaint: ED Psychiatric Symptoms Stated complaint: wants a 1a eval? Time Seen by Provider: 12/05/16 01:41 Source: patient Limitations: no limitations Nursing Notes Reviewed: Yes Vital Signs Reviewed: Yes - History of Present Illness HPI Narrative: 36-year-old male with a history of psychiatric illness and hypertension presents to the emergency department with the chief complaint of auditory hallucinations. Reports the voices telling him to "hurt myself". He reports not taking his olanzapine or any other medications for a month. He was recently admitted to our psychiatric unit and had medication adjustment. At that time they considered giving him an injection of olanzapine for better compliance. He admits to drinking one beer today but denies any drugs. He denies any ingestions. Denies any self-harm. Denies any homicidal ideation. He reports a runny nose and a few episodes of diarrhea. He has had his appendix removed in the past. Denies any vomiting or fevers. Denies any headache. Denies any trauma or injury. Denies other complaints or concerns today. Pain Scale: 10 - Related Data Home Medications Medication Instructions Recorded Confirmed HydrOXYzine Pamoate [Vistaril] 50 mg PO DAILY 12/05/16 12/05/16 LORazepam [Ativan] 2 mg PO TID 12/05/16 12/05/16 RisperiDONE [Risperdal] 2 mg PO BID 12/05/16 12/05/16 Previous Rx's Medication Instructions Recorded TraZODone 50 mg PO HS PRN #30 tablet 07/14/16 Aspirin [Ecotrin] 325 mg PO DAILY #30 tablet. 12/01/16 Lisinopril [Zestril] 5 mg PO DAILY #30 tablet 12/01/16 OLANZapine [Zyprexa Zydis] 10 mg PO DAILY #30 tab.rapdis 12/01/16 OLANZapine [Zyprexa] 15 mg PO HS #30 tablet 12/01/16 Vitamin B Complex/Vit C/Vit E 1 each PO DAILY tablet 12/01/16 [Stresstab] Allergies Allergy/AdvReac Type Severity Reaction Status Date / Time No Known Allergies Allergy Verified 11/22/16 20:45 All systems ED: reviewed and negative except as stated. Constitutional: Denies: fever Cardiovascular: Denies: chest pain Respiratory: Reports: cough (He states he always coughs because he is a heavy smoker) Gastrointestinal: Reports: diarrhea. Denies: nausea, vomiting Musculoskeletal: Denies: back pain, neck pain Neurological: Denies: headache, weakness, numbness Past Medical History - Past Medical History Medical history: Reports: hyperlipidemia, hypertension, seizures, other Surgical history: Reports: appendectomy, arthroscopy Psychiatric history: Reports: schizophrenia, previous psychiatric hospitalization - Social History Smoking Status: Current every day smoker Smokeless Tobacco Status: No Alcohol use: Reports: heavy Drug use: Reports: marijuana Physical Exam General: Patient is resting comfortably in bed and in no distress. Cardiovascular: Regular rate and rhythm. S1, S2. No murmurs, rubs or gallops. Respiratory: Scant expiratory wheezing. No cough or respiratory distress. No rales or rhonchi. Abdomen: Soft, nontender. No guarding, rebound or rigidity. No palpable organomegaly. No overlying signs of injury. No right upper quadrant tenderness. Eyes: Conjunctiva clear HENT: Mild clear rhinorrhea. No oral mucosal lesions. Moist mucous membranes. No cervical adenopathy or neck tenderness Neuro: Blair and oriented, stands and ambulates independently. Musculoskeletal: No joint tenderness or swelling Skin: No lesions. No diaphoresis. Normal turgor. Normal color Psych: Withdrawn, lacks eye contact, flat affect - General Limitations: no limitations General appearance: alert, in no apparent distress Course Course Narrative: Presented to the emergency department with auditory hallucinations. Patient will be evaluated by psychiatric team. Regarding his medical exam patient reports some URI symptoms with a few episodes of diarrhea. On exam his abdomen is soft and unremarkable. He has had no fevers, chills, nausea or vomiting. He does have a nitrite positive urinary tract infection which is a bit peculiar with him being a male. He has no flank tenderness on exam and denies any flank pain. His labs are unremarkable including CBC and BMP. He is afebrile with stable vital signs. We will begin treatment with Bactrim in the emergency department. Patient is medically clear at this time. After the psychiatry team spoke with the on-call psychologist they felt it was best and safest to admit the patient to get him back on medications. They are considering giving him a long-acting injection because he has been so noncompliant with his medications. I did pink slip the patient due to acute psychosis, auditory hallucinations and threat to himself. Vital Signs Temperature 98.1 F 12/05/16 01:12 Pulse Rate 95 12/05/16 01:12 Respiratory Rate 18 12/05/16 01:12 Blood Pressure 157/89 12/05/16 01:12 O2 Sat by Pulse Oximetry 96 12/05/16 01:12 Temperature 98.1 F 12/05/16 01:12 Pulse Rate 95 12/05/16 01:12 Respiratory Rate 18 12/05/16 01:12 Blood Pressure 157/89 12/05/16 01:12 O2 Sat by Pulse Oximetry 96 12/05/16 01:12 Oxygen Delivery Oxygen Delivery Room Air Medical Decision Making - Lab Data Result diagrams: 12/05/16 02:04 12/05/16 02:04 Lab Results 12/05/16 12/05/16 12/05/16 Range/Units 01:29 01:29 02:04 WBC 9.7 (4.3-11.1) K/mcL RBC 4.30 (4.19-5.50) M/mcL Hgb 13.7 (12.9-16.9) g/dL Hct 39.8 (37.5-50.1) % MCV 92.6 (83.0-100.0) fL MCH 31.9 (28.0-33.3) pg MCHC 34.4 (31.6-35.5) g/dL RDW 12.3 (11.5-14.5) % Plt Count 317 (140-400) K/mcL MPV 10.5 (9.4-12.4) fL Immature Gran % 0.3 (0-4) % Seg Neutrophils % 58.5 % Lymphocytes % 28.8 % Monocytes % 9.7 % Eosinophils % 2.3 % Basophils % 0.4 % Neutrophils # 5.7 (1.6-8.9) K/mcL Lymphocytes # 2.8 (0.6-4.6) K/mcL Monocytes # 0.9 (0.0-1.3) K/mcL Eosinophils # 0.2 (0.0-0.6) K/mcL Basophils # 0.0 (0.0-0.2) K/mcL Immature Plt Fraction 5.0 (1.1-6.1) % Sodium (136-145) mEq/L Potassium (3.5-4.5) mEq/L Chloride (98-109) mEq/L Carbon Dioxide (19-29) mEq/L BUN (8-26) mg/dL Creatinine (0.72-1.25) mg/dL Est GFR ( Amer) (> 60) Est GFR (Non-Af Amer) (> 60) BUN/Creatinine Ratio (6-26) Glucose (70-99) mg/dL Calculated Osmolality (280-300) Calcium (8.6-10.8) mg/dL Urine Color Dark Yellow (Yellow) Urine Clarity Cloudy A (Clear) Urine pH 6.0 (5.0-8.0) pH Units Ur Specific [address] > 1.030 H (1.010-1.025) Urine Protein Trace (Neg-Trace) mg/dL Urine Glucose (UA) Normal (Normal) mg/dL Urine Ketones Trace H (Negative) mg/dL Urine Blood Negative (Negative) Urine Nitrite Positive A (Negative) Urine Bilirubin Negative (Negative) Urine Urobilinogen Normal (Normal) mg/dL Ur Leukocyte Esterase Small H (Negative) Urine Microscopic RBC Test Not Performed Urine Microscopic WBC 30-50 H (0-3) per hpf Ur Squamous Epith Cells Few (None-Few) per lpf Urine Bacteria Many H (None-Few) per hpf Hyaline Casts None Seen (None-Few) per lpf Salicylates (15-30) mg/dL Urine Opiates Screen Negative (Zryqjc=851) ng/mL Acetaminophen (10-30) mcg/mL Ur Barbiturates Screen Negative (Znnioq=366) ng/mL Ur Phencyclidine Scrn Negative (Cutoff=25) ng/mL Ur Amphetamines Screen Negative (Cyazhk=3884) ng/mL U Benzodiazepines Scrn Negative (Milxsd=695) ng/mL Urine Cocaine Screen Negative (Cutoff= 300) ng/mL U Marijuana (THC) Screen Negative (Cutoff = 50) ng/mL Ethyl Alcohol (0-10) mg/dL 12/05/16 12/05/16 Range/Units 02:04 02:04 WBC (4.3-11.1) K/mcL RBC (4.19-5.50) M/mcL Hgb (12.9-16.9) g/dL Hct (37.5-50.1) % MCV (83.0-100.0) fL MCH (28.0-33.3) pg MCHC (31.6-35.5) g/dL RDW (11.5-14.5) % Plt Count (140-400) K/mcL MPV (9.4-12.4) fL Immature Gran % (0-4) % Seg Neutrophils % % Lymphocytes % % Monocytes % % Eosinophils % % Basophils % % Neutrophils # (1.6-8.9) K/mcL Lymphocytes # (0.6-4.6) K/mcL Monocytes # (0.0-1.3) K/mcL Eosinophils # (0.0-0.6) K/mcL Basophils # (0.0-0.2) K/mcL Immature Plt Fraction (1.1-6.1) % Sodium 139 (136-145) mEq/L Potassium 3.9 (3.5-4.5) mEq/L Chloride 107 (98-109) mEq/L Carbon Dioxide 24 (19-29) mEq/L BUN 20 (8-26) mg/dL Creatinine 1.03 (0.72-1.25) mg/dL Est GFR ( Amer) > 60 (> 60) Est GFR (Non-Af Amer) > 60 (> 60) BUN/Creatinine Ratio 19 (6-26) Glucose 109 H (70-99) mg/dL Calculated Osmolality 291 (280-300) Calcium 8.8 (8.6-10.8) mg/dL Urine Color (Yellow) Urine Clarity (Clear) Urine pH (5.0-8.0) pH Units Ur Specific [address] (1.010-1.025) Urine Protein (Neg-Trace) mg/dL Urine Glucose (UA) (Normal) mg/dL Urine Ketones (Negative) mg/dL Urine Blood (Negative) Urine Nitrite (Negative) Urine Bilirubin (Negative) Urine Urobilinogen (Normal) mg/dL Ur Leukocyte Esterase (Negative) Urine Microscopic RBC Urine Microscopic WBC (0-3) per hpf Ur Squamous Epith Cells (None-Few) per lpf Urine Bacteria (None-Few) per hpf Hyaline Casts (None-Few) per lpf Salicylates < 5.0 L (15-30) mg/dL Urine Opiates Screen (Qxhafe=913) ng/mL Acetaminophen 1.0 L (10-30) mcg/mL Ur Barbiturates Screen (Eywfwz=934) ng/mL Ur Phencyclidine Scrn (Cutoff=25) ng/mL Ur Amphetamines Screen (Vjbjce=9838) ng/mL U Benzodiazepines Scrn (Ofpyga=725) ng/mL Urine Cocaine Screen (Cutoff= 300) ng/mL U Marijuana (THC) Screen (Cutoff = 50) ng/mL Ethyl Alcohol < 10 (0-10) mg/dL Attestation Statement - Attestation Attestation: I, Kris Tanner MD, personally performed a history and physical exam of the patient and discussed their management with the resident. I reviewed the resident's note and agree with the documented findings, medical decision making , and plan of care. 36-year-old male presents to the emergency department for psychiatric evaluation. He has a history of psychiatric problems and complains of having auditory and visual hallucinations. He states he is hearing voices that are telling him to hurt himself. He admits to some suicidal ideation. No plan. On examination patient is a well-developed well-nourished male in no acute distress. He is alert and oriented 3. There is no cyanosis or diaphoresis. Breath sounds are clear and equal bilaterally. Heart regular rate and rhythm. Abdomen soft and nontender with normal bowel sounds. Labs reviewed. 1A psychiatry service consulted and will evaluate patient in the emergency department. Patient was evaluated in the emergency department and is being admitted to the 1A psychiatry service.
[2016-12-05 01:55] LABS: Bilirubin,Urine Negative (Negative); Blood,Urine Negative (Negative); Clarity,Urine Cloudy (Clear); Color,Urine Dark Yellow (Yellow); Glucose,Urine (UA) Normal (Normal); Ketones,Urine Trace mg/dL (Negative); Leukocyte Esterase,Urine Small (Negative); Nitrite,Urine Positive (Negative); Protein,Urine Trace mg/dL (Neg-Trace); Specific Gravity,Urine > 1.030 (1.010-1.025); Urobilinogen,Urine Normal (Normal)
[2016-12-05 01:57] LABS: Bacteria,Urine Many per hpf (None-Few); Hyaline Casts,Urine None Seen per lpf (None-Few); WBC,Urine 30-50 per hpf (0-3)
[2016-12-05 01:59] LABS: Amphetamine Screen,Urine Negative ng/mL (Cutoff=1000); Barbiturate Screen,Urine Negative ng/mL (Cutoff=200); Benzodiazepines Screen,Urine Negative ng/mL (Cutoff=200); Cannabinoid Screen,Urine Negative ng/mL (Cutoff = 50); Cocaine Screen,Urine Negative ng/mL (Cutoff= 300); Opiate Screen,Urine Negative ng/mL (Cutoff=300); Phencyclidine Screen,Urine Negative ng/mL (Cutoff=25)
[2016-12-05 02:08] LABS: Squamous Epithelial Cell,Urine Few per lpf (None-Few)
[2016-12-05 02:12] LABS: Basophils % 0.4 %; Eosinophils # 0.2 K/mcL (0.0-0.6); Eosinophils % 2.3 %; Hematocrit 39.8 % (37.5-50.1); Hemoglobin 13.7 g/dL (12.9-16.9); Immature Granulocytes % 0.3 % (0-4); Lymphocytes # 2.8 K/mcL (0.6-4.6); Lymphocytes % 28.8 %; Mean Corpuscular HGB Conc 34.4 g/dL (31.6-35.5); Mean Corpuscular Hemoglobin 31.9 pg (28.0-33.3); Mean Corpuscular Volume 92.6 fL (83.0-100.0); Mean Platelet Volume 10.5 fL (9.4-12.4); Monocytes # 0.9 K/mcL (0.0-1.3); Monocytes % 9.7 %; Neutrophils # 5.7 K/mcL (1.6-8.9); Platelet Count 317 K/mcL (140-400); Red Cell Distribution Width 12.3 % (11.5-14.5); Segmented Neutrophils % 58.5 %
[2016-12-05 02:25] LABS: BUN/Creatinine Ratio 19 (6-26); Blood Urea Nitrogen 20 mg/dL (8-26); Calcium 8.8 mg/dL (8.6-10.8); Carbon Dioxide 24 mEq/L (19-29); Chloride 107 mEq/L (98-109); Glucose 109 mg/dL (70-99); Osmolality,Calculated 291 (280-300); Potassium 3.9 mEq/L (3.5-4.5); Sodium 139 mEq/L (136-145); eGFR For African Americans > 60 (> 60); eGFR For Non-African Americans > 60 (> 60)
[2016-12-05 02:27] LABS: Ethanol < 10 mg/dL (0-10); Salicylate < 5.0 mg/dL (15-30)
[2016-12-05] MEDS ORDERED: Sulfamethoxazole/Trimeth DS 1 EACH TABLET PO ONE (02:34)
[2016-12-05] MEDS ORDERED: *HR* LORazepam 1 MG TABLET PO ONE (03:50)
[2016-12-05] MEDS ORDERED: OLANZapine 10 MG TAB.RAPDIS PO STA (03:50)
[2016-12-05] MEDS ORDERED: *HR* LORazepam 2 MG/ML VIAL IM PRN (10:32)
[2016-12-05] MEDS ORDERED: Mag Hydrox/Al Hydrox/Simeth 30 ML UDC PO PRN (10:32)
[2016-12-05] MEDS ORDERED: Haloperidol Lactate 5 MG/ML VIAL IM PRN (10:32)
[2016-12-05] MEDS ORDERED: *HR* LORazepam 1 MG TABLET PO PRN (10:32)
[2016-12-05] MEDS ORDERED: MOM Conc 10 ML UD.LIQ PO PRN (10:32)
[2016-12-05] MEDS ORDERED: Nicotine 2 MG GUM BC PRN (10:32)
[2016-12-05] MEDS ORDERED: traZODone 50 MG TABLET PO PRN (10:35)
--- NOTE | 2016-12-05 11:51 | Psychiatry History & Physical ---
Date of Encounter: 12/05/16 Time of Encounter: 11:00 History of Present Illness Patient Stated Chief Complaint: I am hearing voices and becoming paranoid. Medicare Admission Attestation: For traditional Medicare patients the provided hospital inpatient services are reasonable and necessary and in the case of services not specified as inpatient -only under 42 CFR 419.22 (n), that they are appropriately provided as inpatient services in accordance 42 CFR 412.3. For Critical Access Hospital the patient may reasonably be expected to be discharged or transferred to a hospital within 96 hours after admission to the Critical Access Hospital. Admitted From: Emergency Dept Plans for Post Hospital Care: Home History of Present Illness: Mr. Miller is a 36 year old male Was well known to us from recent psychiatric hospitalization patient was discharged last week. He is noted to have a diagnosis of schizophrenia. Patient reported that he has not taken any of his medications since his discharge and been noticing a relapse of his psychotic symptoms with auditory hallucinations which are commanding in nature telling the patient that they will kill him. Patient reported that he is becoming more paranoid suspicious hopeless and suicidal. He fears that he will act on these voices and end up killing himself. He was unable to contract for safety he reportedly been sleeping poorly his self-care plus also poor. Since patient was acutely psychotic and unable to contract for safety, decided to hospitalize him on 1A Past Med Surg [facility] HX - Past Medical History Medical history: hyperlipidemia, hypertension, seizures, other - Past Psychiatric History Psychiatric history: Reports: schizophrenia, previous psychiatric hospitalization Past psychiatric history details: Patient does have history of paranoid schizophrenia. He has had psychiatric hospitalizations in the past, his most recent hospitalization was last week. Family psychiatric history: Unknown Family History of Suicide: None - Past Surgical History Surgical History: appendectomy, arthroscopy - Social History Smoking Status: Current every day smoker Smokeless Tobacco Status: No Alcohol use: heavy, recent Drug use: marijuana Occupational status: disabled Current living situation: Home, With Family Activity Level: Independent ambulation Recent Out of Country Travel Within the Last 8 Weeks: No Exposure or Possible Exposure to Illness During Travel: No - Family History Father Hx Family Cardiac Disorders: Yes Medications & Allergies TraZODone 50 mg PO HS PRN #30 tablet 07/14/16 [Rx] Aspirin [Ecotrin] 325 mg PO DAILY #30 tablet. 12/01/16 [Rx] Lisinopril [Zestril] 5 mg PO DAILY #30 tablet 12/01/16 [Rx] OLANZapine [Zyprexa Zydis] 10 mg PO DAILY #30 tab.rapdis 12/01/16 [Rx] OLANZapine [Zyprexa] 15 mg PO HS #30 tablet 12/01/16 [Rx] HydrOXYzine Pamoate [Vistaril] 50 mg PO Q6H PRN 12/05/16 [History] LORazepam [Ativan] 2 mg PO TID 12/05/16 [History] Vitamin B Complex/Vit C/Vit E [Stresstab] 1 tab PO DAILY 12/05/16 [History] Allergies No Known Allergies Allergy (Verified 11/22/16 20:45) Review of Systems Psychiatric: Reports: anxiety, suicidal ideation, auditory hallucinations Mental Status Exam Patient orientation: Yes Person, Yes Time, Yes Place Level of alertness: Alert Patient appearance: Unkempt, Disheveled Behavior: nervous, anxious, suspicious Psychomotor activity: Slowed Eye contact: Minimal Contact Mood description: Anxious Affect description: constricted, dysphoric Speech pattern: Pressured Speech volume: Normal Thought process: [place] Thought content: Yes Suicidal ideation, Yes Paranoid delusion Perceptual disturbances: Yes Reacting to internal stimuli, Yes Auditory hallucinations Attention span: Capable of Focused Attention Memory description: Grossly Intact Patient reliability: Questionable Historian Intelligence estimate: Average Judgment: Limited Insight: Minimal Results - Vital Signs Vital signs: Temp Pulse Resp BP Pulse Ox 98.0 F 76 18 137/89 96 12/05/16 10:58 12/05/16 10:58 12/05/16 10:58 12/05/16 10:58 12/05/16 01:12 - Labs Labs: Laboratory Last Values WBC 9.7 K/mcL (4.3-11.1) 12/05/16 02:04 RBC 4.30 M/mcL (4.19-5.50) 12/05/16 02:04 Hgb 13.7 g/dL (12.9-16.9) 12/05/16 02:04 Hct 39.8 % (37.5-50.1) 12/05/16 02:04 MCV 92.6 fL (83.0-100.0) 12/05/16 02:04 MCH 31.9 pg (28.0-33.3) 12/05/16 02:04 MCHC 34.4 g/dL (31.6-35.5) 12/05/16 02:04 RDW 12.3 % (11.5-14.5) 12/05/16 02:04 Plt Count 317 K/mcL (140-400) 12/05/16 02:04 MPV 10.5 fL (9.4-12.4) 12/05/16 02:04 Immature Gran % 0.3 % (0-4) 12/05/16 02:04 Seg Neutrophils % 58.5 % 12/05/16 02:04 Lymphocytes % 28.8 % 12/05/16 02:04 Monocytes % 9.7 % 12/05/16 02:04 Eosinophils % 2.3 % 12/05/16 02:04 Basophils % 0.4 % 12/05/16 02:04 Neutrophils # 5.7 K/mcL (1.6-8.9) 12/05/16 02:04 Lymphocytes # 2.8 K/mcL (0.6-4.6) 12/05/16 02:04 Monocytes # 0.9 K/mcL (0.0-1.3) 12/05/16 02:04 Eosinophils # 0.2 K/mcL (0.0-0.6) 12/05/16 02:04 Basophils # 0.0 K/mcL (0.0-0.2) 12/05/16 02:04 Immature Plt Fraction 5.0 % (1.1-6.1) 12/05/16 02:04 Sodium 139 mEq/L (136-145) 12/05/16 02:04 Potassium 3.9 mEq/L (3.5-4.5) 12/05/16 02:04 Chloride 107 mEq/L (98-109) 12/05/16 02:04 Carbon Dioxide 24 mEq/L (19-29) 12/05/16 02:04 BUN 20 mg/dL (8-26) 12/05/16 02:04 Creatinine 1.03 mg/dL (0.72-1.25) 12/05/16 02:04 Est GFR ( Amer) > 60 (> 60) 12/05/16 02:04 Est GFR (Non-Af Amer) > 60 (> 60) 12/05/16 02:04 BUN/Creatinine Ratio 19 (6-26) 12/05/16 02:04 Glucose 109 mg/dL (70-99) H 12/05/16 02:04 Calculated Osmolality 291 (280-300) 12/05/16 02:04 Calcium 8.8 mg/dL (8.6-10.8) 12/05/16 02:04 Urine Color Dark Yellow (Yellow) 12/05/16 01:29 Urine Clarity Cloudy (Clear) A 12/05/16 01:29 Urine pH 6.0 pH Units (5.0-8.0) 12/05/16 01:29 Ur Specific [place] > 1.030 (1.010-1.025) H 12/05/16 01:29 Urine Protein Trace mg/dL (Neg-Trace) 12/05/16 01:29 Urine Glucose (UA) Normal mg/dL (Normal) 12/05/16 01:29 Urine Ketones Trace mg/dL (Negative) H 12/05/16 01:29 Urine Blood Negative (Negative) 12/05/16 01:29 Urine Nitrite Positive (Negative) A 12/05/16 01:29 Urine Bilirubin Negative (Negative) 12/05/16 01:29 Urine Urobilinogen Normal mg/dL (Normal) 12/05/16 01:29 Ur Leukocyte Esterase Small (Negative) H 12/05/16 01:29 Urine Microscopic RBC Test Not Performed 12/05/16 01:29 Urine Microscopic WBC 30-50 per hpf (0-3) H 12/05/16 01:29 Ur Squamous Epith Cells Few per lpf (None-Few) 12/05/16 01:29 Urine Bacteria Many per hpf (None-Few) H 12/05/16 01:29 Hyaline Casts None Seen per lpf (None-Few) 12/05/16 01:29 Salicylates < 5.0 mg/dL (15-30) L 12/05/16 02:04 Urine Opiates Screen Negative ng/mL (Nqrqyf=400) 12/05/16 01:29 Acetaminophen 1.0 mcg/mL (10-30) L 12/05/16 02:04 Ur Barbiturates Screen Negative ng/mL (Jqdrns=521) 12/05/16 01:29 Ur Phencyclidine Scrn Negative ng/mL (Cutoff=25) 12/05/16 01:29 Ur Amphetamines Screen Negative ng/mL (Utbtsw=7614) 12/05/16 01:29 U Benzodiazepines Scrn Negative ng/mL (Xkrfai=538) 12/05/16 01:29 Urine Cocaine Screen Negative ng/mL (Cutoff= 300) 12/05/16 01:29 U Marijuana (THC) Screen Negative ng/mL (Cutoff = 50) 12/05/16 01:29 Ethyl Alcohol < 10 mg/dL (0-10) 12/05/16 02:04 Assessment and Plan (1) Paranoid schizophrenia, chronic condition with acute exacerbation Current visit: Yes Status: Acute Plan: Admit inpatient for safety and stabilization, Close observation, Suicide Precautions per unit protocol, Encourage participation in unit milieu, Group Therapy, Monitor sleep, Monitor appetite Additional Plan: Patient will be restarted on Zyprexa. We will consider a long-acting decanoate injection during this hospitalization. We will also encourage compliance and ensure that patient continues to take his medications upon discharge. Risks, benefits, side effects, alternatives discussed w/pt: Yes Patient agreeable to treatment: Yes Plans for Post Hospital Care: Home Estimated Length of Stay (Days): 3
[2016-12-05] MEDS: Ibuprofen 400 MG TABLET PO PRN (20:39)
[2016-12-05] MEDS: *HR* LORazepam 1 MG TABLET PO SCH (20:39)
[2016-12-05] MEDS: OLANZapine 5 MG TAB.RAPDIS PO SCH (20:40)
[2016-12-06] MEDS: Aspirin Enteric Coated 325 MG Tablet PO SCH (09:49)
[2016-12-06] MEDS: *HR* LORazepam 1 MG TABLET PO SCH ×2 (09:49→20:33)
[2016-12-06] MEDS: OLANZapine 10 MG TAB.RAPDIS PO SCH (09:49)
[2016-12-06] MEDS: Vitamin B Complex/Vit C/Vit E 1 EACH TABLET PO SCH (09:49)
--- NOTE | 2016-12-06 11:57 | Psychiatry Progress Note ---
Date of Encounter: 12/06/16 Time of Encounter: 11:37 Subjective Interval history: Patient seen and interviewed. Continue to verbalize auditory hallucinations. Patient is demonstrating poor self care and hygiene. Patient has been drowsy and sleeping a lot. Appetite is improved. Denying any current suicidal thoughts but reporting of voices to be commanding in nature. He appears somewhat suspicious isolated withdrawn and paranoid. Patient is encouraged to attend groups and participate in activities. Review of Systems Psychiatric: Reports: anxiety, auditory hallucinations Objective: Exam Patient orientation: Yes Person, Yes Time, Yes Place Level of alertness: Alert Patient appearance: Unkempt, Disheveled Behavior: nervous, anxious, suspicious Psychomotor activity: Slowed Eye contact: Minimal Contact Mood description: Anxious Affect description: constricted, dysphoric Speech pattern: Pressured Speech volume: Normal Thought process: [place] Thought content: Yes Paranoid delusion Perceptual disturbances: Yes Reacting to internal stimuli, Yes Auditory hallucinations Judgment: Limited Insight: Minimal Results - Vital Signs Vital Signs: Temp Pulse Resp BP Pulse Ox 98.8 F 101 20 147/100 96 12/06/16 09:00 12/06/16 09:00 12/06/16 09:00 12/06/16 09:00 12/05/16 01:12 Assessment and Plan (1) Paranoid schizophrenia, chronic condition with acute exacerbation Current visit: Yes Status: Acute Plan: Continue hospitalization, Close observation, Suicide Precautions per unit protocol, Encourage participation in unit milieu, Group Therapy, Monitor sleep, Monitor appetite Additional Plan: We will decrease Ativan 0.5 mg twice a day due to excessive sedation and drowsiness Risks, benefits, side effects, alternatives discussed w/pt: Yes Patient agreeable to treatment: Yes Consult Discharge Plan - Plan Referrals: NO,PCP [Primary Care Provider] -
[2016-12-06] MEDS: Ibuprofen 400 MG TABLET PO PRN ×2 (12:01→19:30)
[2016-12-06] MEDS: Sulfamethoxazole/Trimeth DS 1 EACH TABLET PO SCH (20:33)
[2016-12-06] MEDS: OLANZapine 5 MG TAB.RAPDIS PO SCH (20:33)
--- NOTE | 2016-12-07 07:06 | Electrocardiograph Report ---
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
[2016-12-07] MEDS: OLANZapine 10 MG TAB.RAPDIS PO SCH (08:58)
[2016-12-07] MEDS: Vitamin B Complex/Vit C/Vit E 1 EACH TABLET PO SCH (08:58)
[2016-12-07] MEDS: Aspirin Enteric Coated 325 MG Tablet PO SCH (08:58)
[2016-12-07] MEDS: *HR* LORazepam 1 MG TABLET PO SCH ×2 (08:59→20:55)
[2016-12-07] MEDS: Sulfamethoxazole/Trimeth DS 1 EACH TABLET PO SCH ×2 (08:59→20:55)
--- NOTE | 2016-12-07 15:04 | Psychiatry Progress Note ---
Date of Encounter: 12/07/16 Time of Encounter: 14:57 Subjective Interval history: Patient be seen or interviewed for follow-up, he was deeply asleep and also taking medication and did not want to disturb him. Review of the notes indicated that he is readmitted after being discharged last week for decompensation and noncompliance with medication having paranoia and auditory and visual hallucinations and would not stay safe outside of the hospital. As per treatment plan on previous admission he is a candidate for longer acting injectable antipsychotics olanzapine Pamoate. Orders given and will starts patient on an injectable long acting antipsychotic to improve his compliance with treatment. Review of Systems Psychiatric: Reports: anxiety, auditory hallucinations Objective: Exam Patient orientation: Yes Person, Yes Time, Yes Place Level of alertness: Alert Patient appearance: Unkempt, Disheveled Additional observations: Patient is deeply asleep and could not be interviewed. Behavior: nervous, anxious, suspicious Psychomotor activity: Slowed Eye contact: Minimal Contact Mood description: Anxious Affect description: constricted, dysphoric Speech pattern: Pressured Speech volume: Normal Thought process: [place] Thought content: Yes Paranoid delusion Perceptual disturbances: Yes Reacting to internal stimuli, Yes Auditory hallucinations Judgment: Limited Insight: Minimal Results - Vital Signs Vital Signs: Temp Pulse Resp BP Pulse Ox 98.5 F 87 18 136/92 96 12/07/16 09:00 12/07/16 09:00 12/07/16 09:00 12/07/16 09:00 12/05/16 01:12 Assessment and Plan (1) Paranoid schizophrenia, chronic condition with acute exacerbation Current visit: Yes Status: Acute Plan: Continue hospitalization, Close observation, Suicide Precautions per unit protocol, Encourage participation in unit milieu, Group Therapy, Monitor sleep, Monitor appetite Additional Plan: We will plan to start the patient on an injectable long-acting antipsychotic or olanzapine pamoate as soon as available. Risks, benefits, side effects, alternatives discussed w/pt: Yes Patient agreeable to treatment: Yes Consult Discharge Plan - Plan Referrals: Misbah Tapia [facility] [Outside] - 12/17/16 10:00 am (The above appointment is with Jill Jackson. You will also see Yaritza Ortiz, psychiatric prescriber, on 12/29/2016 at 1:00pm. )
[2016-12-07] MEDS: Ibuprofen 400 MG TABLET PO PRN (15:30)
[2016-12-07] MEDS: OLANZapine 5 MG TAB.RAPDIS PO SCH (20:54)
[2016-12-08] MEDS: OLANZapine 10 MG TAB.RAPDIS PO SCH (08:53)
[2016-12-08] MEDS: Vitamin B Complex/Vit C/Vit E 1 EACH TABLET PO SCH (08:54)
[2016-12-08] MEDS: *HR* LORazepam 1 MG TABLET PO SCH ×2 (08:54→21:20)
[2016-12-08] MEDS: Aspirin Enteric Coated 325 MG Tablet PO SCH (08:57)
[2016-12-08] MEDS: Sulfamethoxazole/Trimeth DS 1 EACH TABLET PO SCH ×2 (08:57→21:20)
[2016-12-08] MEDS: Ibuprofen 400 MG TABLET PO PRN ×2 (13:30→19:58)
[2016-12-08] MEDS ORDERED: *HR* LORazepam 2 MG/ML VIAL IM PRN (13:34)
[2016-12-08] MEDS: *HR* LORazepam 1 MG TABLET PO PRN (13:41)
--- NOTE | 2016-12-08 16:32 | Psychiatry Progress Note ---
Date of Encounter: 12/09/16 Time of Encounter: 15:30 Subjective Interval history: Patient seen for follow-up. Nursing staff reports patient is more alert and able to communicate with the staff. I explained to him that we are waiting for longer acting injection to keep him stable and he seemed to understand. He is not presenting any suicidal ideation or hallucinations however he is noncompliant outside of the hospital. Review of Systems Psychiatric: Reports: anxiety, auditory hallucinations Objective: Exam Patient orientation: Yes Person, Yes Time, Yes Place Level of alertness: Alert Patient appearance: Unkempt, Disheveled Behavior: nervous, anxious, suspicious Psychomotor activity: Slowed Eye contact: Minimal Contact Mood description: Anxious Affect description: constricted, dysphoric Speech pattern: Limited, Impoverished, Difficulty finding words Speech volume: Normal Thought process: [place] Thought content: Yes Paranoid delusion Perceptual disturbances: Yes Reacting to internal stimuli, Yes Auditory hallucinations Judgment: Limited Insight: Minimal Results - Vital Signs Vital Signs: Temp Pulse Resp BP Pulse Ox 98.6 F 79 18 122/79 96 12/08/16 08:54 12/08/16 08:54 12/08/16 08:54 12/08/16 08:54 12/05/16 01:12 Assessment and Plan (1) Paranoid schizophrenia, chronic condition with acute exacerbation Current visit: Yes Status: Acute Plan: Continue hospitalization, Close observation, Suicide Precautions per unit protocol, Encourage participation in unit milieu, Group Therapy, Monitor sleep, Monitor appetite Risks, benefits, side effects, alternatives discussed w/pt: Yes Patient agreeable to treatment: Yes Consult Discharge Plan - Plan [facility]16 10:00 am (The above appointment is with Jill Jackson. You will also see Yaritza Ortiz psychiatric prescriber, on 12/29/2016 at 1:00pm. )
[2016-12-08] MEDS: OLANZapine 5 MG TAB.RAPDIS PO SCH (21:20)
[2016-12-09] MEDS: Sulfamethoxazole/Trimeth DS 1 EACH TABLET PO SCH ×2 (08:21→21:13)
[2016-12-09] MEDS: OLANZapine 10 MG TAB.RAPDIS PO SCH (08:21)
[2016-12-09] MEDS: Vitamin B Complex/Vit C/Vit E 1 EACH TABLET PO SCH (08:21)
[2016-12-09] MEDS: *HR* LORazepam 1 MG TABLET PO SCH ×2 (08:21→21:13)
[2016-12-09] MEDS: Aspirin Enteric Coated 325 MG Tablet PO SCH (08:21)
[2016-12-09] MEDS: Ibuprofen 400 MG TABLET PO PRN (15:11)
[2016-12-09] MEDS: OLANZapine 5 MG TAB.RAPDIS PO SCH (21:13)
[2016-12-10] MEDS: Aspirin Enteric Coated 325 MG Tablet PO SCH (08:50)
[2016-12-10] MEDS: *HR* LORazepam 1 MG TABLET PO SCH ×2 (08:50→21:10)
[2016-12-10] MEDS: OLANZapine 10 MG TAB.RAPDIS PO SCH (08:51)
[2016-12-10] MEDS: Sulfamethoxazole/Trimeth DS 1 EACH TABLET PO SCH ×2 (08:51→21:10)
[2016-12-10] MEDS: Vitamin B Complex/Vit C/Vit E 1 EACH TABLET PO SCH (08:51)
[2016-12-10] MEDS: Ibuprofen 400 MG TABLET PO PRN (14:08)
[2016-12-10] MEDS: *HR* LORazepam 1 MG TABLET PO PRN (14:08)
--- NOTE | 2016-12-10 14:31 | Psychiatry Progress Note ---
Date of Encounter: 12/10/16 Time of Encounter: 14:25 Subjective Interval history: Patient is here for follow-up. His longer acting medication is not available and pharmacy suggested finding an alternative longer acting injection. Patient is noted to be pacing he is appropriately interacting with other people is not agitated or lethargic keep asking me when he can go home. He is med compliant in the hospital. probate paper were submitted to court for probable cause. Review of Systems Psychiatric: Reports: anxiety, auditory hallucinations Objective: Exam Patient orientation: Yes Person, Yes Time, Yes Place Level of alertness: Alert Patient appearance: Unkempt, Disheveled Behavior: cooperative, anxious, suspicious Psychomotor activity: Normal Eye contact: Minimal Contact Mood description: Anxious Affect description: constricted, dysphoric Speech pattern: Limited, Impoverished, Difficulty finding words Speech volume: Normal Thought process: [place] Thought content: Yes Paranoid delusion Perceptual disturbances: Yes Reacting to internal stimuli, Yes Auditory hallucinations Judgment: Limited Insight: Minimal Results - Vital Signs Vital Signs: Temp Pulse Resp BP Pulse Ox 98.1 F 94 16 118/82 96 12/10/16 09:00 12/10/16 09:00 12/10/16 09:00 12/10/16 09:00 12/05/16 01:12 Assessment and Plan (1) Paranoid schizophrenia, chronic condition with acute exacerbation Current visit: Yes Status: Acute Plan: Continue hospitalization, Close observation, Suicide Precautions per unit protocol, Encourage participation in unit milieu, Group Therapy, Monitor sleep, Monitor appetite Additional Plan: Pharmacy indicated that Zyprexa longer acting is not available. We will find an alternative longer acting injectable medication to stabilize patient's. Risks, benefits, side effects, alternatives discussed w/pt: Yes Patient agreeable to treatment: Yes Consult Discharge Plan - Plan [facility] - 12/17/16 10:00 am (The above appointment is with Jill Jackson. You will also see Yaritza Ortiz, psychiatric prescriber, on 12/29/2016 at 1:00pm. )
[2016-12-10] MEDS: OLANZapine 5 MG TAB.RAPDIS PO SCH (21:10)
[2016-12-11] MEDS: *HR* LORazepam 1 MG TABLET PO SCH (09:10)
[2016-12-11] MEDS: Aspirin Enteric Coated 325 MG Tablet PO SCH (09:10)
[2016-12-11] MEDS: Sulfamethoxazole/Trimeth DS 1 EACH TABLET PO SCH (09:12)
[2016-12-11] MEDS: Vitamin B Complex/Vit C/Vit E 1 EACH TABLET PO SCH (09:12)
[2016-12-11] MEDS: Ibuprofen 400 MG TABLET PO PRN (13:25)
[2016-12-11] MEDS: *HR* LORazepam 1 MG TABLET PO PRN (13:26)
--- NOTE | 2016-12-11 14:39 | Psychiatry Progress Note ---
Date of Encounter: 12/11/16 Time of Encounter: 14:42 Subjective Interval history: Patient is seen for follow-up. Staff reports she is compliant with medication and was lethargic last night and medication were adjusted, we discontinued Zyprexa and now he reports feeling better and not sedated. He is tolerating Haldol well and I explained to him that the plan is to : Convert the oral medication to injectable long-acting medication. he is agreeable to this plan and denied any side effects, denies any auditory hallucination. There are no reports of agitation or hallucination. Review of Systems Psychiatric: Reports: anxiety, auditory hallucinations Objective: Exam Patient orientation: Yes Person, Yes Time, Yes Place Level of alertness: Alert Patient appearance: Unkempt, Disheveled Behavior: cooperative, anxious, suspicious, other (Pacing) Psychomotor activity: Normal Eye contact: Minimal Contact Mood description: Anxious Affect description: constricted, dysphoric, anxious Speech pattern: Limited, Impoverished, Difficulty finding words Speech volume: Normal Thought process: [place] Thought content: Yes Paranoid delusion Perceptual disturbances: Yes Reacting to internal stimuli, Yes Auditory hallucinations Judgment: Limited Insight: Minimal Results - Vital Signs Vital Signs: Temp Pulse Resp BP Pulse Ox 97.3 F L 83 18 115/85 96 12/11/16 09:00 12/11/16 09:00 12/11/16 09:00 12/11/16 09:00 12/05/16 01:12 Assessment and Plan (1) Paranoid schizophrenia, chronic condition with acute exacerbation Current visit: Yes Status: Acute Plan: Continue hospitalization, Close observation, Suicide Precautions per unit protocol, Encourage participation in unit milieu, Group Therapy, Monitor sleep, Monitor appetite Risks, benefits, side effects, alternatives discussed w/pt: Yes Patient agreeable to treatment: Yes Consult Discharge Plan - Plan [facility] - 12/17/16 10:00 am (The above appointment is with Jill Jackson. You will also see Yaritza Ortiz psychiatric prescriber, on 12/29/2016 at 1:00pm. )
[2016-12-11 16:59] LABS: Basophils # 0.1 K/mcL (0.0-0.2); Basophils % 0.6 %; Eosinophils # 0.2 K/mcL (0.0-0.6); Hematocrit 46.8 % (37.5-50.1); Immature Granulocytes % 0.2 % (0-4); Lymphocytes # 3.2 K/mcL (0.6-4.6); Mean Corpuscular HGB Conc 34.6 g/dL (31.6-35.5); Mean Corpuscular Hemoglobin 31.8 pg (28.0-33.3); Mean Corpuscular Volume 91.9 fL (83.0-100.0); Mean Platelet Volume 10.4 fL (9.4-12.4); Monocytes # 0.6 K/mcL (0.0-1.3); Monocytes % 6.4 %; Neutrophils # 5.6 K/mcL (1.6-8.9); Platelet Count 329 K/mcL (140-400); Red Blood Count 5.09 M/mcL (4.19-5.50); Segmented Neutrophils % 57.8 %
[2016-12-11 17:10] LABS: BUN/Creatinine Ratio 13 (6-26); Blood Urea Nitrogen 19 mg/dL (8-26); Calcium 9.8 mg/dL (8.6-10.8); Carbon Dioxide 21 mEq/L (19-29); Chloride 105 mEq/L (98-109); Glucose 98 mg/dL (70-99); Osmolality,Calculated 284 (280-300); Potassium 4.5 mEq/L (3.5-4.5); Sodium 136 mEq/L (136-145); eGFR For African Americans > 60 (> 60); eGFR For Non-African Americans 58 (> 60)
[2016-12-11 17:26] LABS: Hemoglobin 16.2 g/dL (12.9-16.9)
--- NOTE | 2016-12-11 18:57 | Internal Medicine Consult Note ---
<Carmelita Arriaza - Last Filed: 12/11/16 20:34> Date of Encounter: 12/11/16 Time of Encounter: 17:00 - Assessment and Plan (1) Chest pain Current Visit: Yes Status: Acute Assessment and plan: 1 patient was awakened today with midsternal chest pressure which radiated to his left arm described as a 10 out of 10 pressure was worse on inspiration the pain has slowly eased on its own. First cardiac troponins have been negative we will continue to cycle cardiac troponins [address]-T wave abnormalities we will recheck EKG in a.m. 3 obtained D dimer rule out possible PE Qualifiers: Chest pain type: unspecified Qualified Code(s): R07.9 - Chest pain, unspecified (2) YOVANI (acute kidney injury) Current Visit: Yes Status: Acute Assessment and plan: 1 . Appears upon admission patient's creatinine was 1.09 today at 1.41 upon review of old records appears creatinine is less than 1 at Baseline. Patient is presently on psychiatric holguin receiving medications are sedating suspect his oral intake has been decreased on top of the fact patient is taking lisinopril and is on Bactrim for a UTI which may be causing elevation in his creatinine. We will hold lisinopril for now we will encourage fluid intake and will monitor creatinine. If no improvement patient may require IV fluids 2 we will attempt to avoid nephrotoxins 3 we will monitor intake and output (3) Paranoid schizophrenia, chronic condition with acute exacerbation Current Visit: Yes Status: Acute Assessment and plan: 1 she has history of paranoid schizophrenia this is being managed by psychiatry team (4) UTI (urinary tract infection) Current Visit: Yes Status: Acute Assessment and plan: 1 on presentation to the ER patient did have nitrates and urine patient was started on Bactrim we will continue last dose is on 12/13/16 2 encourage fluids Qualifiers: Urinary tract infection type: acute cystitis Hematuria presence: with hematuria Qualified Code(s): N30.01 - Acute cystitis with hematuria (5) Hypertension Current Visit: No Status: Chronic Assessment and plan: 1 patient has history of hypertension he is on lisinopril presently blood pressure is controlled s 111/80. We will hold lisinopril for now due to rising creatinine. We will resume once back to baseline Qualifiers: Hypertension type: essential hypertension Qualified Code(s): I10 - Essential (primary) hypertension Internal Medicine - CN: HPI - Data of Consult Patient: new to practice Consult date: 12/11/16 Requesting Physician: Antonio Philip MD - Consult Narrative History of present illness: Mr. Miller is a 36 year old male past medical history of hypertension hyperlipidemia tobacco use, Schizophrenia. Patient receiving sedating medication information obtained from medical records nursing staff as well as the patient. According to medical records the patient presented to the ER 2016 due to he had not been taking his antipsychotics have been experiencing auditory hallucinations as well as increased paranoia. She was admitted to [facility] for further treatment of paranoid schizophrenia. His admission has been uneventful except for today the patient was taking a nap he was awakened by says 10 out of 10 chest pressure that radiated to his left arm there were no associated symptoms the pressure was constant it was worse upon inspiration and there were no relieving factors. Upon assessment the patient stated that the pain had eased some and was down to 7 out of 10. EKG was obtained there were no ST-T wave abnormalities noted vital signs were stable first cardiac troponin was negative. He does not have any past cardiac history he is a smoker of half pack a day and his mother did have congestive heart failure, father had cardiac disease however unknown what type. Nursing staff very familiar with patient has had multiple admissions due to psychiatric history they do express that the patient frequently states that he has 10 out of 10 pain all over his body, we will continue to cycle cardiac troponins and monitor EKG. Hospitalist have been consulted for further medical management of blood pressure as well as chest pain. Past Med Surg Social Fam HX - Past Medical History Medical history: hyperlipidemia, hypertension, seizures, other Psychiatric history: schizophrenia, previous psychiatric hospitalization - Past Surgical History Surgical History: appendectomy, arthroscopy - Social History Smoking Status: Current every day smoker Packs per day: 1/2 pack Smokeless Tobacco Status: No Alcohol use: heavy, recent Drug use: marijuana - Family History Father Hx Family Cardiac Disorders: Yes ROS unobtainable: due to mental status (Patient is groggy and lethargic) Internal Medicine - CN: Meds TraZODone 50 mg PO HS PRN #30 tablet 07/14/16 [Rx] Aspirin [Ecotrin] 325 mg PO DAILY #30 tablet. 12/01/16 [Rx] Lisinopril [Zestril] 5 mg PO DAILY #30 tablet 12/01/16 [Rx] OLANZapine [Zyprexa Zydis] 10 mg PO DAILY #30 tab.rapdis 12/01/16 [Rx] OLANZapine [Zyprexa] 15 mg PO HS #30 tablet 12/01/16 [Rx] HydrOXYzine Pamoate [Vistaril] 50 mg PO Q6H PRN 12/05/16 [History] LORazepam [Ativan] 2 mg PO TID 12/05/16 [History] Vitamin B Complex/Vit C/Vit E [Stresstab] 1 tab PO DAILY 12/05/16 [History] Allergies No Known Allergies Allergy (Verified 11/22/16 20:45) Internal Medicine - CN: Exam - Constitutional Vitals: Temp Pulse Resp BP Pulse Ox 98.3 F 84 16 111/80 96 12/11/16 16:47 12/11/16 16:47 12/11/16 16:47 12/11/16 16:47 12/05/16 01:12 General appearance IM: Present: A&O X 2 Exam: Patient is Groggy, flat affect answers in short sentences - Eye Eye exam: Present: PERRL - Respiratory Respiratory exam: Present: CTAB - Cardiovascular Cardiovascular exam IM: Present: +S1, +S2 - GI/Abdominal GI/Abdominal exam IM: Present: soft, no peritoneal signs - Extremities Exam Extremities exam IM: Present: normal capillary refill, warm, radial pulses palpable and symetrical - Neurological Exam Neurological exam: Present: strengths equal and symetr throughout Additional comments: Patient is groggy oriented to name and place does follow simple commands - Expanded Neurological Exam Speech: Present: slurred - Psychiatric Psychiatric exam: Present: flat affect Internal Medicine - CN: Reslt - Labs CBC & Chem 7: 12/11/16 16:50 12/11/16 16:50 Labs: Short CBC 12/11/16 Range/Units 16:50 WBC 9.7 (4.3-11.1) K/mcL Hgb 16.2 D (12.9-16.9) g/dL Hct 46.8 (37.5-50.1) % Plt Count 329 (140-400) K/mcL Neutrophils # 5.6 (1.6-8.9) K/mcL BMP 12/11/16 16:50 Sodium 136 Potassium 4.5 Chloride 105 Carbon Dioxide 21 BUN 19 Creatinine 1.41 H Glucose 98 Calcium 9.8 Cardiac Enzymes 12/11/16 Range/Units 16:50 Troponin I 0.00 (0-0.03) ng/mL - EKG Data EKG shows normal: sinus rhythm - EKG Data Prior EKG available for review: yes When compared to previous EKG: there is no significant change Consult Discharge Plan - Plan Referrals: [facility] [Outside] - 12/17/16 10:00 am (The above appointment is with Jill Jackson. You will also see Yaritza Ortiz psychiatric prescriber, on 12/29/2016 at 1:00pm. ) <Gokul Modi - Last Filed: 12/11/16 20:42> Internal Medicine - CN: HPI - Data of Consult Requesting Physician: Antonio Philip MD - Consult Narrative History of present illness: Mr. Miller is a 36 year old male Internal Medicine - CN: Exam - Constitutional Vitals: Temp Pulse Resp BP Pulse Ox 98.3 F 84 16 111/80 96 12/11/16 16:47 12/11/16 16:47 12/11/16 16:47 12/11/16 16:47 12/05/16 01:12 Internal Medicine - CN: Reslt - Labs CBC & Chem 7: 12/11/16 16:50 12/11/16 16:50 Labs: Short CBC 12/11/16 Range/Units 16:50 WBC 9.7 (4.3-11.1) K/mcL Hgb 16.2 D (12.9-16.9) g/dL Hct 46.8 (37.5-50.1) % Plt Count 329 (140-400) K/mcL Neutrophils # 5.6 (1.6-8.9) K/mcL BMP 12/11/16 16:50 Sodium 136 Potassium 4.5 Chloride 105 Carbon Dioxide 21 BUN 19 Creatinine 1.41 H Glucose 98 Calcium 9.8 Cardiac Enzymes 12/11/16 Range/Units 16:50 Troponin I 0.00 (0-0.03) ng/mL - ABG Interpretation ABG results: PT/INR, D-dimer D-Dimer < 215 ng/mLFEU (0-500) 12/11/16 19:00 - Attending Attestation I examined this patient and my medical decision-making was reviewed with the PATIENT SERVICES TECHNICIAN/PA/Advanced Practice Nurse/Resident Physician. I agree with the documented findings, disposition and treatment plan as described except to the extent set forth below. Patient tells me he has 5/10 left-sided pressure-like chest pain currently. Will give nitroglycerin. Will obtain an EKG. We will transfer the patient to telemetry under our service. Trend troponin. Obtain echocardiogram in the morning. We will give aspirin.
[2016-12-11] MEDS ORDERED: Naloxone 0.4 MG/ML INJ IVP PRN (19:48)
[2016-12-11] MEDS ORDERED: Acetaminophen 325 MG TABLET PO PRN (19:48)
[2016-12-11 23:58] VITALS: BP 100/63
--- NOTE | 2016-12-14 13:54 | Electrocardiograph Report ---
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
--- NOTE | 2016-12-21 08:46 | Discharge Summary ---
Date of Encounter: 12/11/16 Time of Encounter: 14:00 Diagnosis - Discharge Diagnosis (1) Paranoid schizophrenia, chronic condition with acute exacerbation Status: Acute Medications - Discharge Medications TraZODone 50 mg PO HS PRN #30 tablet 07/14/16 [Rx] Aspirin [Ecotrin] 325 mg PO DAILY #30 tablet. 12/01/16 [Rx] Lisinopril [Zestril] 5 mg PO DAILY #30 tablet 12/01/16 [Rx] OLANZapine [Zyprexa Zydis] 10 mg PO DAILY #30 tab.rapdis 12/01/16 [Rx] OLANZapine [Zyprexa] 15 mg PO HS #30 tablet 12/01/16 [Rx] Vitamin B Complex/Vit C/Vit E [Stresstab] 1 tab PO DAILY 12/05/16 [History] Haloperidol [Haldol] 10 mg PO BID 12/11/16 [History] LORazepam [Ativan] 0.5 mg PO BID 12/11/16 [History] LORazepam [Ativan] 1 mg PO Q4HR PRN 12/11/16 [History] Allergies No Known Allergies Allergy (Verified 11/22/16 20:45) Results Procedures and tests throughout hospitalization: Completed Lab Orders Category Date Time Status BMP [Basic Metabolic Panel] Stat Lab 12/11/16 16:50 Completed CBC [Complete Blood Count] [HEME] Stat Lab 12/11/16 16:50 Completed D-Dimer [COAG] Stat Lab 12/11/16 19:00 Completed Troponin I Routine Lab 12/11/16 23:06 Completed Troponin I Stat Lab 12/11/16 16:50 Completed Provider Date of admission: 12/05/16 10:10 Primary care physician: PCP NO Consults: 12/05/16 10:50 Consult to Pastoral Services [CONS] Routine Comment: per patient request 12/11/16 15:05 Consult to Hospitalist [CONS] Stat Consulting Provider: Gokul Modi Reason for Consult: chest pain Time Notified: 15:05 Call Completed: Yes Discharging clinician: Antonio Philip Assessment and Plan - Follow up Plan Follow up with: [facility] [Outside] - 12/17/16 10:00 am (The above appointment is with Jill Jackson. You will also see Yaritza Ortiz psychiatric prescriber, on 12/29/2016 at 1:00pm. ) Disposition: Transfer Other Hospital Course Hospital course: Mr. Miller is a 36 year old male admitted for exacerbation of schizophrenia. Patient experienced chest pain medical consult was ordered and the medical apparatus model maker decided to move the patient to medical floor for further treatment. Patient will return to the [facility] after medical stabilization. - Time Spent with Patient Total time spent providing and/or coordinating discharge services: Less than 30 minutes Quality - Multiple Antipsychotics Patient discharged on 2 or more antipsychotic medications: Yes - Justification Documentation of: Recommended plan to taper to monotherapy (Patient was transitioning from olanzapine to Haldol in order for him to have injectable long -acting antipsychotics maintenance.) Procedures - Procedures Procedures: Medication Management, Crisis Stabilization, Supportive Therapy, Group Therapy, Psychoeducational Therapy Mental Status Exam - Mental Status Exam Patient orientation: Yes Person, Yes Time, Yes Place Level of alertness: Alert Patient appearance: Unkempt, Disheveled Behavior: cooperative, anxious, suspicious, other (Pacing) Psychomotor activity: Normal Eye contact: Minimal Contact Mood description: Anxious Affect description: constricted, dysphoric, anxious Speech pattern: Limited, Impoverished, Difficulty finding words Speech Volume: Normal Thought process: [place] Thought Content: Yes Paranoid delusion Perceptual Disturbances: Yes Reacting to internal stimuli, Yes Auditory hallucinations Judgment: Limited Insight: Minimal
== END 2016-12-11 20:50 | disposition other institution (70) | DRG 750 ==
LOC: EMEROO 01:09 → SUATTDRO 10:10 → 1ANU 10:10
PROVIDERS: ADMIT Psychiatry & Neurology Psychiatry; ATTEND Psychiatry & Neurology Psychiatry

== ENCOUNTER 2016-12-11 20:40 | Observation (INO) ==
[2016-12-11] MEDS ORDERED: 0.9 % Sodium Chloride 1,000 ML ONE (21:40)
[2016-12-11] MEDS ORDERED: Nitroglycerin 0.4 MG TAB.SUBL SL ONE (21:40)
[2016-12-11] MEDS: Nitroglycerin 0.4 MG TAB.SUBL SL PRN (21:44)
[2016-12-11] MEDS: 0.9 % Sodium Chloride 1,000 ML IVC SCH (21:44)
[2016-12-11] MEDS ORDERED: hydrOXYzine pamoate 25 MG CAPSULE PO PRN (22:41)
[2016-12-11] MEDS ORDERED: traZODone 50 MG TABLET PO PRN (22:41)
--- NOTE | 2016-12-11 22:48 | Event Note ---
Date of Encounter: 12/11/16 Time of Encounter: 21:00 Patient arrived to floor from 1A after experiencing chest pressure. He continued to experience 4 out of 10 chest pressure no other associative symptoms. Patient was started on IV fluids he was given 1 nitroglycerin which did relieve his pain EKG was obtained as well as chest x-ray. Continue with cardiac troponins as well continuous cardiac monitoring I updated patient's condition, he will follow up with EKG.
[2016-12-12 00:19] LABS: Bilirubin,Urine Negative (Negative); Blood,Urine Negative (Negative); Clarity,Urine Clear (Clear); Color,Urine Yellow (Yellow); Glucose,Urine (UA) Normal (Normal); Ketones,Urine Negative (Negative); Leukocyte Esterase,Urine Negative (Negative); Nitrite,Urine Negative (Negative); Protein,Urine Negative (Neg-Trace); Specific Gravity,Urine 1.015 (1.010-1.025); Urobilinogen,Urine Normal (Normal)
[2016-12-12 05:15] LABS: Basophils # 0.1 K/mcL (0.0-0.2); Basophils % 0.6 %; Eosinophils # 0.2 K/mcL (0.0-0.6); Eosinophils % 2.6 %; Hematocrit 42.9 % (37.5-50.1); Immature Granulocytes % 0.3 % (0-4); Lymphocytes # 3.2 K/mcL (0.6-4.6); Lymphocytes % 41.3 %; Mean Corpuscular Hemoglobin 32.3 pg (28.0-33.3); Mean Corpuscular Volume 92.5 fL (83.0-100.0); Mean Platelet Volume 10.7 fL (9.4-12.4); Monocytes # 0.6 K/mcL (0.0-1.3); Monocytes % 7.9 %; Neutrophils # 3.7 K/mcL (1.6-8.9); Platelet Count 273 K/mcL (140-400); Red Blood Count 4.64 M/mcL (4.19-5.50); Red Cell Distribution Width 12.2 % (11.5-14.5); Segmented Neutrophils % 47.3 %
[2016-12-12 05:35] LABS: BUN/Creatinine Ratio 15 (6-26); Blood Urea Nitrogen 19 mg/dL (8-26); Carbon Dioxide 25 mEq/L (19-29); Chloride 106 mEq/L (98-109); Cholesterol 165 mg/dL (< 200); Glucose 85 mg/dL (70-99); HDL Cholesterol 33 mg/dL (40-59); LDL Cholesterol,Calculated 99 mg/dL (0-99); Osmolality,Calculated 290 (280-300); Potassium 4.7 mEq/L (3.5-4.5); Sodium 139 mEq/L (136-145); Triglycerides 166 mg/dL (< 150); eGFR For African Americans > 60 (> 60); eGFR For Non-African Americans > 60 (> 60)
[2016-12-12] MEDS: *HR* Enoxaparin 40 MG/0.4 ML SYRINGE SQ SCH (05:48)
[2016-12-12] MEDS: 0.9 % Sodium Chloride 1,000 ML IVC SCH ×3 (05:49→17:54)
[2016-12-12] MEDS: Sulfamethoxazole/Trimeth DS 1 EACH TABLET PO SCH ×2 (08:59→20:42)
[2016-12-12] MEDS: Vitamin B Complex/Vit C/Vit E 1 EACH TABLET PO SCH (08:59)
[2016-12-12] MEDS: *HR* LORazepam 0.5 MG TABLET PO SCH ×2 (08:59→20:42)
[2016-12-12] MEDS: Aspirin Enteric Coated 325 MG Tablet PO SCH (09:00)
[2016-12-12] MEDS: OLANZapine 10 MG TAB.RAPDIS PO SCH (09:00)
[2016-12-12] MEDS: *HR* LORazepam 1 MG TABLET PO PRN (14:04)
--- NOTE | 2016-12-12 14:10 | Internal Med Progress Note ---
Date of Encounter: 12/12/16 Time of Encounter: 14:09 - Assessment and plan (1) Chest pain Current Visit: No Status: Acute Assessment and plan: No chest pain reported at this time. Serial troponins negative Scheduled for nuclear stress test in the morning If stress test is negative for any ischemic/perfusion defects, likely discharge to psych inpatient in the morning. Continue aspirin Nitroglycerin sublingual when necessary for pain Qualifiers: Chest pain type: unspecified Qualified Code(s): R07.9 - Chest pain, unspecified (2) YOVANI (acute kidney injury) Current Visit: No Status: Acute Assessment and plan: Improved from previous day Continue IV fluids Continue to hold lisinopril at this time (3) Hypertension Current Visit: No Status: Chronic Assessment and plan: BP within acceptable range Continue to closely monitor Qualifiers: Hypertension type: essential hypertension Qualified Code(s): I10 - Essential (primary) hypertension (4) DVT prophylaxis Current Visit: Yes Status: Acute Assessment and plan: Lovenox subcutaneous (5) Schizophrenia Current Visit: No Status: Chronic Assessment and plan: Continue home medications Qualifiers: Schizophrenia type: paranoid schizophrenia Qualified Code(s): F20.0 - Paranoid schizophrenia - Subjective Interval history: Patient is a 36-year-old male who is a transfer from inpatient psych for evaluation of chest pain. Patient seen and examined at bedside. Resting comfortably in bed and denies any chest pain, shortness of breath at this time. Patient was scheduled for an exercise stress test this morning however was unable to complete the test due to which he is scheduled for nuclear stress test in the morning. - Constitutional Vitals: Temp Pulse Resp BP Pulse Ox 97.7 F 73 16 104/68 97 12/12/16 12:01 12/12/16 12:01 12/12/16 12:01 12/12/16 12:01 12/12/16 12:01 General appearance: Present: A&O X 3, no acute distress, obese, answers questions appropriately - Head Head exam: Present: atraumatic, normocephalic - Eye Eye exam: Present: normal appearance, conjuntiva pink, sclera anicteric - Respiratory Respiratory exam: Present: CTAB. Absent: accessory muscle use, rales, rhonchi, wheezes - Cardiovascular Cardiovascular exam: Present: RRR, +S1, +S2. Absent: diastolic murmur, gallop, rubs, systolic murmur - GI/Abdominal GI/Abdominal exam: Present: normal bowel sounds, soft, no peritoneal signs. Absent: distended, tenderness - Extremities Exam Extremities exam: Present: warm, radial pulses palpable and symetrical. Absent : calf tenderness, cyanotic, pedal edema - Neurological Exam Neurological exam: Present: alert, oriented X3 - Psychiatric Psychiatric exam: Present: normal affect, normal mood Internal Medicine: Result - Labs CBC & Chem 7: 12/12/16 04:53 12/12/16 04:53 Labs: Short CBC 12/12/16 Range/Units 04:53 WBC 7.8 (4.3-11.1) K/mcL Hgb 15.0 (12.9-16.9) g/dL Hct 42.9 (37.5-50.1) % Plt Count 273 (140-400) K/mcL Neutrophils # 3.7 (1.6-8.9) K/mcL BMP 12/12/16 04:53 Sodium 139 Potassium 4.7 H Chloride 106 Carbon Dioxide 25 BUN 19 Creatinine 1.28 H Glucose 85 Calcium 9.0 Cardiac Enzymes 12/12/16 Range/Units 08:31 Troponin I 0.00 (0-0.03) ng/mL Urine 12/12/16 Range/Units 00:10 Urine Color Yellow (Yellow) Urine Clarity Clear (Clear) Urine pH 6.0 (5.0-8.0) pH Units Ur Specific [place] 1.015 (1.010-1.025) Urine Protein Negative (Neg-Trace) mg/dL Urine Glucose (UA) Normal (Normal) mg/dL Consult Discharge Plan - Plan Referrals: NO,PCP [Primary Care Provider] -
[2016-12-12] MEDS: Nitroglycerin 0.4 MG TAB.SUBL SL PRN ×2 (15:57→16:03)
[2016-12-12] MEDS: Acetaminophen 325 MG TABLET PO PRN (17:21)
[2016-12-12] MEDS ORDERED: OLANZapine 5 MG TAB.RAPDIS PO SCH (21:00)
[2016-12-13] MEDS: 0.9 % Sodium Chloride 1,000 ML IVC SCH (03:00)
[2016-12-13 04:28] LABS: Basophils % 0.4 %; Eosinophils # 0.2 K/mcL (0.0-0.6); Eosinophils % 3.3 %; Hematocrit 42.7 % (37.5-50.1); Hemoglobin 14.4 g/dL (12.9-16.9); Immature Granulocytes % 0.1 % (0-4); Lymphocytes # 2.9 K/mcL (0.6-4.6); Lymphocytes % 42.1 %; Mean Corpuscular HGB Conc 33.7 g/dL (31.6-35.5); Mean Platelet Volume 10.5 fL (9.4-12.4); Monocytes # 0.6 K/mcL (0.0-1.3); Monocytes % 8.8 %; Neutrophils # 3.1 K/mcL (1.6-8.9); Platelet Count 262 K/mcL (140-400); Red Blood Count 4.64 M/mcL (4.19-5.50); Segmented Neutrophils % 45.3 %
[2016-12-13 04:49] LABS: BUN/Creatinine Ratio 14 (6-26); Blood Urea Nitrogen 15 mg/dL (8-26); Calcium 8.9 mg/dL (8.6-10.8); Carbon Dioxide 23 mEq/L (19-29); Chloride 108 mEq/L (98-109); Glucose 81 mg/dL (70-99); Osmolality,Calculated 290 (280-300); Phosphorous 4.4 mg/dL (2.3-4.7); Potassium 4.3 mEq/L (3.5-4.5); Sodium 140 mEq/L (136-145); eGFR For African Americans > 60 (> 60); eGFR For Non-African Americans > 60 (> 60)
[2016-12-13] MEDS: *HR* Enoxaparin 40 MG/0.4 ML SYRINGE SQ SCH (06:05)
[2016-12-13] MEDS ORDERED: Regadenoson 0.4 MG/5 ML SYRINGE IVP ONE (07:41)
[2016-12-13] MEDS: OLANZapine 10 MG TAB.RAPDIS PO SCH (10:02)
[2016-12-13] MEDS: Vitamin B Complex/Vit C/Vit E 1 EACH TABLET PO SCH (10:02)
[2016-12-13] MEDS: *HR* LORazepam 0.5 MG TABLET PO SCH (10:02)
[2016-12-13] MEDS: Aspirin Enteric Coated 325 MG Tablet PO SCH (10:02)
[2016-12-13] MEDS: Sulfamethoxazole/Trimeth DS 1 EACH TABLET PO SCH (10:02)
--- NOTE | 2016-12-13 11:48 | Nuclear Medicine Stress Report ---
Regadenoson Nuclear 2 day Name: Tryo Miller Date of Study: 12/12/2016 Date: 1980 Ht: 75.0 in Medical Record#: [id number] Age: 36 Wt: 300.0 lb Gender: Male Order #: [id number] Location: [facility] Room: [facility] Supervising Provider: Marc Ireland CNP Reading Physician: Rito Starks DO, FACPauly, DOMENICO BURNETT Ordering Physician: Steffanie Eddy CNP Primary Care Physician: None Stress Technologist: Farhana Coleman, METAL CASTING TRADES WORKER, CCT, CPFT Pipe Liner: Simone Jack Indications: Chest Pain Impression: Pharmacologic stress ECG is negative for ischemia at level of heart rate achieved. Gated EF = 58%. The left ventricle is dilated. LVEDV 160 mL. Small sized, mild intensity, fixed inferior perfusion defect consistent with artifact. Perfusion imaging was negative for ischemia or infarct. History: Hypertension History of Smoking Stress Test Summary: Stress Test Type: Pharmacologic Regadenoson 0.4mg/5ml given IV Baseline Information: Initial Heart Rate: 85 Blood Pressure: 114/82 Stress Information: Stress Time: 4 min sec Test Terminated Due to (primary): As per protocol Maximum Blood Pressure: 140/86 Maximum Heart Rate: 149 Percent Maximum Heart Rate Achieved: 80 Double Product: [id number] METS Reached: 1 Symptoms: Shortness of breath Nuclear Summary: SPECT myocardial perfusion imaging using Tc99m Sestamibi given intravenously was performed at rest and following cardiac stress testing. The resting images were obtained following initial dose of 34.2 mCi. Following stress an additional dose of 34.7 mCi was given at peak exercise or 30 seconds post regadenoson infusion. Medication Given: Time Medication Dose Units Route Findings: Stress Note * Resting ECG demonstrated normal sinus rhythm. * No baseline arrhythmias were noted. * Pharmacologic stress ECG is negative for ischemia at level of heart rate achieved. * No arrhythmias were noted during stress. * Patient had no chest pain during stress. * Normal hemodynamic responses to pharmacologic stress. Study Quality * Study quality is average. Gated EF % * Gated EF = 58%. Left Ventricle * The left ventricle is dilated. LVEDV = 160 mL. * Normal wall motion. Inferior Perfusion Rest * The inferior segment shows a mild reduction in perfusion. Inferior Perfusion Stress * The inferior segment shows a mild reduction in perfusion. TID * No evidence of transient ischemic dilatation. Lung Uptake * There is no evidence of increase lung uptake. Updated by Rito Starks DO, WALKER, HORTENCIA, DOMENICO on 12/13/2016 11:43:36 AM electronically signed on 12/13/2016 11:45:03 AM with status of Final
--- NOTE | 2016-12-13 13:09 | Discharge Summary ---
Date of Encounter: 12/13/16 Time of Encounter: 13:05 - Discharge Diagnosis (1) Chest pain Priority: Primary Status: Resolved Qualifiers: Chest pain type: unspecified Qualified Code(s): R07.9 - Chest pain, unspecified (2) YOVANI (acute kidney injury) Priority: Secondary Status: Resolved (3) Hypertension Priority: Secondary Status: Chronic Qualifiers: Hypertension type: essential hypertension Qualified Code(s): I10 - Essential (primary) hypertension (4) DVT prophylaxis Priority: Secondary Status: Acute (5) Schizophrenia Priority: Secondary Status: Chronic Qualifiers: Schizophrenia type: paranoid schizophrenia Qualified Code(s): F20.0 - Paranoid schizophrenia - Discharge Medications Home Medications: TraZODone 50 mg PO HS PRN #30 tablet 07/14/16 [Rx] Aspirin [Ecotrin] 325 mg PO DAILY #30 tablet.dr 12/01/16 [Rx] Lisinopril [Zestril] 5 mg PO DAILY #30 tablet 12/01/16 [Rx] OLANZapine [Zyprexa Zydis] 10 mg PO DAILY #30 tab.rapdis 12/01/16 [Rx] OLANZapine [Zyprexa] 15 mg PO HS #30 tablet 12/01/16 [Rx] HydrOXYzine Pamoate [Vistaril] 50 mg PO Q6H PRN 12/05/16 [History] LORazepam [Ativan] 2 mg PO TID 12/05/16 [History] Vitamin B Complex/Vit C/Vit E [Stresstab] 1 tab PO DAILY 12/05/16 [History] Haloperidol [Haldol] 10 mg PO BID 12/11/16 [History] Ibuprofen [Motrin] 400 mg PO Q6HR PRN 12/11/16 [History] LORazepam [Ativan] 0.5 mg PO BID 12/11/16 [History] LORazepam [Ativan] 1 mg PO Q4HR PRN 12/11/16 [History] Sulfamethoxazole/Trimeth DS [Bactrim Ds] 1 each PO BID 12/11/16 [History] Allergies/Adverse Reactions: Allergies No Known Allergies Allergy (Verified 11/22/16 20:45) Procedures/tests Complete & Pending: Procedures Performed prior 72 hours Category Date Time Status NM dionne perf SPECT multi [NM] Routine Exams 12/12/16 11:57 Taken ECG 12 lead ECG [ECG] Stat Y 12/11/16 22:37 Ordered EKG [ECG 12 lead ECG] [ECG] AM 0600 Y 12/12/16 06:00 Ordered SP pharm nuclear stress Routine Y 12/13/16 08:30 Completed Date of admission: 12/11/16 21:01 Primary care physician: HATTIE NO Consults: 12/13/16 07:54 Consult to Psychiatry [CONS] Stat Consulting Provider: Psychiatry Vandana Reason for Consult: transferred from psych in patient to medicine for chest pain.Need further psych follow up in regards to discharge planning. If stress test is negative, patient can be discharged. Call Completed: Yes Discharging clinician: Migdalia Tamez Anticipated date of discharge: 12/13/16 - Patient Status Disposition: Transfer Psychiatric Hosp Condition: Good Functional capacity at discharge: independent ambulation Overall status at discharge: patient is back to baseline - Discharge Instructions Follow Up With: NO,PCP [Primary Care Provider] - Additional Instructions: Please follow-up with your primary care physician after discharge from the hospital. Please continue to take all your home medications as prescribed by your primary care physician. - Diet and Activity Activity: increase activity as tolerated Diet: low salt diet Hospital course: Mr. Miller is a 36 year old male with PMH of HTN, HLD, tobacco abuse, schizophrenia who was transferred from psych inpatient medicine for management of chest pain. Patient had negative serial troponins and no ST-T wave abnormalities on EKG are reported. His chest pain was relieved with nitroglycerin sublingual, and he underwent nuclear stress test. His nuclear stress test was negative for any ischemia. At this time he is chest pain-free and hemodynamically stable. I spoke with psychiatry (Dr. Philip), he will be transferred back to psych inpatient. - Time Spent with Patient Total time spent providing and/or coordinating discharge services: Less than 30 minutes - Constitutional Vitals: Temp Pulse Resp BP Pulse Ox 97.7 F 99 16 136/90 99 12/13/16 10:57 12/13/16 10:57 12/13/16 10:57 12/13/16 10:57 12/13/16 10:57 General appearance: Present: A&O X 3, no acute distress, obese, answers questions appropriately - Head Head exam: Present: atraumatic, normocephalic - Eye Eye exam: Present: normal appearance, conjuntiva pink, sclera anicteric - Respiratory Respiratory exam: Present: CTAB. Absent: accessory muscle use, rales, rhonchi, wheezes - Cardiovascular Cardiovascular exam: Present: RRR, +S1, +S2. Absent: diastolic murmur, gallop, rubs, systolic murmur - GI/Abdominal GI/Abdominal exam: Present: normal bowel sounds, soft, no peritoneal signs. Absent: distended, tenderness - Extremities Exam Extremities exam: Present: warm, radial pulses palpable and symetrical. Absent : calf tenderness, cyanotic, pedal edema
[2016-12-13 15:18] VITALS: BP 120/79
[2016-12-13] MEDS: *HR* LORazepam 1 MG TABLET PO PRN (16:24)
[2016-12-13] MEDS: Acetaminophen 325 MG TABLET PO PRN (16:26)
--- NOTE | 2016-12-14 14:16 | Electrocardiograph Report ---
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
--- NOTE | 2016-12-14 15:09 | Electrocardiograph Report ---
[place] [address] Test Date: 2016-12-11 Pat Name: Troy Miller Department: 113 Room: 3B22 Gender: M Rn Diabetes: : 1980 Requested By: Steffanie Eddy Order Number: [id number] Reading MD: Roque Rodriguez Measurements Intervals [place] Rate: 68 P: 8 ME: 128 QRS: 19 QRSD: 102 T: 6 QT: 384 QTc: 402 Interpretive Statements SINUS RHYTHM EARLY REPOLARIZATION Electronically Signed On 12-14-2016 15:07:44 EDT by Roque Rodriguez
--- NOTE | 2016-12-22 13:30 | Internal Med History&Physical ---
Date of Encounter: 12/11/16 Time of Encounter: 22:00 Assessment and Plan (1) Chest pain Status: Acute 1 patient was awakened today with midsternal chest pressure which raised his left arm describing is 10 out of 10 pressure. Was worse with inspiration the pain slowly ease on its own. First cardiac troponins have been negative with a 2 cycle cardiac troponins. 2 continuous cardiac monitoring EKG in a.m. 3 obtain d-dimer rule out possible PE 4 nitroglycerin morphine as needed Qualifiers: Chest pain type: unspecified Qualified Code(s): R07.9 - Chest pain, unspecified (2) YOVANI (acute kidney injury) Status: Acute 1 upon admission patient's creatinine was 1.09 today's 1.41 for review of old records. Creatinine is less than 1 at baseline. Patient is presently in psychiatric holguin receiving medications are sedating suspected that his oral intake has been decreased on Cristopher fact patient take lisinopril on Bactrim for UTI which may be causing elevations creatinine. We will hold lisinopril for now we will encourage fluid intake will monitor creatinine. 2 IV fluids overnight 3 we will avoid nephrotoxins 4 monitor intake and output (3) Paranoid schizophrenia, chronic condition with acute exacerbation Status: Acute 1 patient has history of chronic schizophrenia this is being managed by psychiatry team (4) UTI (urinary tract infection) Status: Acute 1 upon presentation the ER patient did have nitrates and urine was started on Bactrim we will continue last dose is 12/13/16 Qualifiers: Urinary tract infection type: acute cystitis Hematuria presence: with hematuria Qualified Code(s): N30.01 - Acute cystitis with hematuria (5) Hypertension Status: Chronic 1 presently controlled we will hold lisinopril for now due to elevated creatinine we will resume once back to baseline Qualifiers: Hypertension type: essential hypertension Qualified Code(s): I10 - Essential (primary) hypertension Internal Medicine - H&P: HPI Chief complaint: chest pain Admitted From: Intrahospital Transfer Plans for Post Hospital Care: Transfer Psych Facility History of present illness: Mr. Miller is a 36 year old male past medical history hypertension hyperlipidemia tobacco use schizophrenia. Patient was admitted to psychiatric floor for exacerbation of paranoid schizophrenia. His admission was uneventful except for today when he awoke from a nap was experiencing 10 out of 10 chest pressure radiating to his left arm. There were no associated symptoms of pressure was constant and it was worse with inspiration and there were no relieving factors. Upon assessment patient stated his pain had E7 out of 10. EKG was obtained and there is no ST-T wave abnormalities bowel signs were stable first cardiac troponin was negative. He does not have past cardiac history he is a smoker and does have history of hypertension. His mother did have congestive heart failure father had a cardiac disease however unknown what type. She status very familiar with this patient he had multiple admissions prior psychiatric history they do express that he frequently states he has 10 out of 10 pain all over his body. Due to the patient's cardiac risk hypertension tobacco use as well as family history and the inability to accurately assess patient's pain will admit to inpatient for further observation Past Med Surg Social Fam HX - Past Medical History Medical history: hyperlipidemia, hypertension, seizures, other Psychiatric history: schizophrenia, previous psychiatric hospitalization - Past Surgical History Surgical History: appendectomy, arthroscopy - Social History Smoking Status: Current every day smoker Smokeless Tobacco Status: No Alcohol use: heavy, recent Drug use: marijuana - Family History Father History Unknown: Yes Hx Family Cardiac Disorders: Yes Internal Medicine - H&P: Meds TraZODone 50 mg PO HS PRN #30 tablet 07/14/16 [Rx] Aspirin [Ecotrin] 325 mg PO DAILY #30 tablet. 12/01/16 [Rx] Lisinopril [Zestril] 5 mg PO DAILY #30 tablet 12/01/16 [Rx] OLANZapine [Zyprexa Zydis] 10 mg PO DAILY #30 tab.rapdis 12/01/16 [Rx] OLANZapine [Zyprexa] 15 mg PO HS #30 tablet 12/01/16 [Rx] Vitamin B Complex/Vit C/Vit E [Stresstab] 1 tab PO DAILY 12/05/16 [History] Haloperidol [Haldol] 10 mg PO BID 12/11/16 [History] LORazepam [Ativan] 0.5 mg PO BID 12/11/16 [History] LORazepam [Ativan] 1 mg PO Q4HR PRN 12/11/16 [History] Allergies No Known Allergies Allergy (Verified 11/22/16 20:45) ROS unobtainable: due to mental status All Systems PM: A 10-system review of systems was performed and is negative for pertinent findings except as documented above in the HPI. - Constitutional Vitals: Temp Pulse Resp BP Pulse Ox 97.9 F 80 18 120/79 96 12/13/16 15:17 12/13/16 15:17 12/13/16 15:17 12/13/16 15:17 12/13/16 15:17 General appearance: Present: A&O X 2, no acute distress, obese, answers questions appropriately - Head Head exam: Present: atraumatic, normocephalic - Eye Eye exam: Present: PERRL, conjuntiva pink, sclera anicteric Pupils: Present: PERRL - Neck Neck exam general surgery: Present: supple, trachea midline. Absent: lymphadenopathy - Respiratory Respiratory exam: Present: CTAB. Absent: accessory muscle use, rales, rhonchi, wheezes - Cardiovascular Cardiovascular exam: Present: RRR, +S1, +S2. Absent: diastolic murmur, gallop, rubs, systolic murmur - GI/Abdominal GI/Abdominal exam: Present: normal bowel sounds, soft, no peritoneal signs. Absent: distended, tenderness - Extremities Exam Extremities exam: Present: warm, radial pulses palpable and symetrical. Absent : calf tenderness, cyanotic, pedal edema - Neurological Exam Neurological exam: Present: CN II-XII intact, no focal deficits. Absent: pronater drift, facial droop, speech deficit - Skin Skin exam: Present: dry, intact Internal Med - H&P Results - Labs CBC & Chem 7: 12/13/16 03:43 12/13/16 03:43 - EKG Data EKG shows normal: sinus rhythm Rate: normal
== END 2016-12-13 16:45 | DRG 203 ==
LOC: 3BNU 21:01 → INTOOBSV 21:01
PROVIDERS: ADMIT Hospitalist; ATTEND Nurse Practitioner Family

== ENCOUNTER 2016-12-13 16:52 | Inpatient (IN) ==
[2016-12-13] MEDS ORDERED: Haloperidol Lactate 5 MG/ML VIAL IM PRN (18:45)
[2016-12-13] MEDS ORDERED: *HR* LORazepam 2 MG/ML VIAL IM PRN (18:45)
[2016-12-13] MEDS ORDERED: MOM Conc 10 ML UD.LIQ PO PRN (18:45)
[2016-12-13] MEDS: Ibuprofen 400 MG TABLET PO PRN (20:48)
[2016-12-13] MEDS: traZODone 50 MG TABLET PO PRN (20:49)
[2016-12-13] MEDS: *HR* LORazepam 0.5 MG TABLET PO SCH (20:49)
[2016-12-13] MEDS: OLANZapine 10 MG TAB.RAPDIS PO SCH (20:49)
[2016-12-14] MEDS: *HR* LORazepam 0.5 MG TABLET PO SCH ×2 (08:56→21:39)
[2016-12-14] MEDS: Vitamin B Complex/Vit C/Vit E 1 EACH TABLET PO SCH (08:56)
[2016-12-14] MEDS: Aspirin Enteric Coated 325 MG Tablet PO SCH (08:57)
[2016-12-14] MEDS ORDERED: OLANZapine 10 MG TAB.RAPDIS PO SCH (09:00)
[2016-12-14] MEDS: *HR* LORazepam 1 MG TABLET PO PRN (14:03)
[2016-12-14] MEDS: Ibuprofen 400 MG TABLET PO PRN (14:04)
--- NOTE | 2016-12-14 16:33 | Psychiatry History & Physical ---
Date of Encounter: 12/14/16 Time of Encounter: 16:19 History of Present Illness Patient Stated Chief Complaint: "I've been hearing voices" Medicare Admission Attestation: For traditional Medicare patients the provided hospital inpatient services are reasonable and necessary and in the case of services not specified as inpatient -only under 42 CFR 419.22 (n), that they are appropriately provided as inpatient services in accordance 42 CFR 412.3. For Critical Access Hospital the patient may reasonably be expected to be discharged or transferred to a hospital within 96 hours after admission to the Critical Access Hospital. Admitted From: Intrahospital Transfer Plans for Post Hospital Care: Home History of Present Illness: Mr. Miller is a 36 year old male who was recently discharged on 12/01/16 from [facility] with good response to Zyprexa. He however did not chart picker his Zyprexa from the pharmacy and relapsed rather quickly. He reports that he is hearing jude's voice telling him that he is going to beat him up and rape him. This is obviously very frightening and distressful to the patient. He therefore called the cab and came to the ER to be readmitted on 12/05/16. Once on the Psych unit he complained of Chest pain and was transferred to the medical floor for work up which all returned normal and he is now transferred back to 1 A unit. He has been restarted on both Zyprexa and Haldol over the weekend and reports that his voices have decreased now. He no longer feel threatened and hopes to not have to discontinue his meds again. he is open to receiving long acting antipsychotic as he has had longstanding issues with non adherence of meds. He denies any suicidal or homicidal thoughts. He has multiple small scabs on his nose which he says he got because the voices wanted him to scratch his nose hard.He denies any side effects to his current meds. Past Med Surg Social Fam HX - Past Medical History Medical history: hyperlipidemia, hypertension, seizures, other - Past Psychiatric History Psychiatric history: Reports: schizophrenia Past psychiatric history details: Childhood onset psychiatric illness. Has been followed by [facility] . Started recently. Med trials include: Haldol, Zyprexa and many others that pt is unable to recall. Family psychiatric history: Yes (Multiple family members have mood and psychotic symptoms.) Family History of Suicide: None Family Suicide History Details: None - Past Surgical History Surgical History: appendectomy, arthroscopy - Social History Smoking Status: Current every day smoker Packs per day: 1 PPD Smokeless Tobacco Status: No Alcohol use: heavy, recent Drug use: marijuana Current living situation: Home Activity Level: Independent ambulation Recent Out of Country Travel Within the Last 8 Weeks: No Exposure or Possible Exposure to Illness During Travel: No Additional social history: Born and raised in [place], [place]. Has 3 br. Never . Has a daughter who is 4 yrs old. - Family History Father Hx Family Cardiac Disorders: Yes Medications & Allergies TraZODone 50 mg PO HS PRN #30 tablet 07/14/16 [Rx] Aspirin [Ecotrin] 325 mg PO DAILY #30 tablet.dr 12/01/16 [Rx] Lisinopril [Zestril] 5 mg PO DAILY #30 tablet 12/01/16 [Rx] OLANZapine [Zyprexa Zydis] 10 mg PO DAILY #30 tab.rapdis 12/01/16 [Rx] OLANZapine [Zyprexa] 15 mg PO HS #30 tablet 12/01/16 [Rx] Vitamin B Complex/Vit C/Vit E [Stresstab] 1 tab PO DAILY 12/05/16 [History] Haloperidol [Haldol] 10 mg PO BID 12/11/16 [History] LORazepam [Ativan] 0.5 mg PO BID 12/11/16 [History] LORazepam [Ativan] 1 mg PO Q4HR PRN 12/11/16 [History] Allergies No Known Allergies Allergy (Verified 11/22/16 20:45) Review of Systems Constitutional: Denies: fever, chills, weakness, weight change Eyes: Denies: eye pain, vision change Ears, Nose, Throat: Denies: ear pain, throat pain, dental pain, hearing loss, congestion Cardiovascular: Denies: chest pain, palpitations, dyspnea on exertion Respiratory: Denies: cough, dyspnea, wheezes Gastrointestinal: Denies: abdominal pain, nausea, vomiting, diarrhea, constipation Genitourinary male: Denies: urgency, dysuria, frequency, genital lesions Genitourinary female: Denies: urgency, dysuria, frequency, abnormal menses, dyspareunia Musculoskeletal: Denies: joint swelling, joint pain Integumentary: Reports: lesions (Scabs on nose.) Neurological: Denies: headache, weakness, numbness, memory loss Psychiatric: Reports: depression, anxiety, abnormal sleep pattern, irritability Endocrine: Denies: fatigue, heat or cold intolerance Hematologic/Lymphatic: Denies: easy bruising, lymphadenopathy Allergic/Immunologic: Denies: urticaria, itchy eyes Mental Status Exam Patient orientation: Yes Person, Yes Time, Yes Place Level of alertness: Alert Patient appearance: Appropriate, Unkempt, Disheveled, Malodorous, Average Behavior: cooperative, nervous, suspicious, fearful Psychomotor activity: Normal Eye contact: No Eye Contact Mood description: Depressed, Anxious Speech pattern: Slurred, Pressured Speech volume: Loud Thought process: Circumstantial, Loose Associations, Slowed Thinking Thought content: Yes Paranoid delusion Perceptual disturbances: Yes Reacting to internal stimuli, Yes Auditory hallucinations Attention span: Unable to Sustain Attention Memory description: Recent Impaired Patient reliability: Questionable Historian Intelligence estimate: Average Judgment: Fair Insight: Partial Exam - HEENT Head exam IM: Present: atraumatic, normal inspection Results - Vital Signs Vital signs: Temp Pulse Resp BP 97 F L 77 18 121/85 12/14/16 09:00 12/14/16 09:00 12/14/16 09:00 12/14/16 09:00 Assessment and Plan (1) Acute psychosis Current visit: No Status: Acute Plan: Admit inpatient for safety and stabilization, Close observation, Suicide Precautions per unit protocol, Encourage participation in unit milieu, Group Therapy, Monitor sleep, Monitor appetite Risks, benefits, side effects, alternatives discussed w/pt: Yes Patient agreeable to treatment: Yes Plans for Post Hospital Care: Home Estimated Length of Stay (Days): 5 (2) Auditory hallucinations Current visit: No Status: Acute Risks, benefits, side effects, alternatives discussed w/pt: Yes Patient agreeable to treatment: Yes Plans for Post Hospital Care: Home (3) Paranoid schizophrenia, chronic condition with acute exacerbation Current visit: No Status: Acute (4) Polysubstance abuse Current visit: No Status: Acute (5) Psychosis Current visit: No Status: Acute Qualifiers: Psychosis type: unspecified psychosis type Qualified Code(s): F29 - Unspecified psychosis not due to a substance or known physiological condition
[2016-12-14] MEDS: Nicotine 21 MG PATCH.TD24 TD SCH (19:50)
[2016-12-14] MEDS: OLANZapine 10 MG TAB.RAPDIS PO SCH (21:38)
[2016-12-14] MEDS: RisperiDAL 3 MG TABLET PO SCH (21:39)
[2016-12-15] MEDS: Ibuprofen 400 MG TABLET PO PRN ×3 (02:39→17:09)
[2016-12-15] MEDS: traZODone 50 MG TABLET PO PRN (02:40)
[2016-12-15] MEDS: *HR* LORazepam 0.5 MG TABLET PO SCH ×2 (08:31→21:26)
[2016-12-15] MEDS: Vitamin B Complex/Vit C/Vit E 1 EACH TABLET PO SCH (08:31)
[2016-12-15] MEDS: Aspirin Enteric Coated 325 MG Tablet PO SCH (08:31)
[2016-12-15] MEDS: Nicotine 21 MG PATCH.TD24 TD SCH (08:32)
[2016-12-15] MEDS ORDERED: Nicotine 21 MG PATCH.TD24 TD SCH (09:00)
[2016-12-15] MEDS: *HR* LORazepam 1 MG TABLET PO PRN ×2 (11:02→17:09)
--- NOTE | 2016-12-15 16:37 | Psychiatry Progress Note ---
Date of Encounter: 12/15/16 Time of Encounter: 16:20 Subjective Interval history: Pt reports that he has some rigidity in his arms . He slept OK at night. Believes his voices have decreased. He is concerned that the court hearing decision was not in his favor so now he may have to stay here for long time.H Review of Systems Psychiatric: Reports: depression, anxiety, auditory hallucinations, difficulty concentrating, irritability Objective: Exam Patient orientation: Yes Person, Yes Time, Yes Place Level of alertness: Alert Patient appearance: Appropriate, Unkempt, Disheveled, Malodorous, Average Behavior: cooperative, nervous, anxious, guarded, suspicious, fearful, distractible Psychomotor activity: Increased Eye contact: No Eye Contact Mood description: Depressed, Anxious Affect description: congruent with mood, flat Speech pattern: Slurred, Excessive, Pressured Speech volume: Loud Thought process: Loose Associations, Slowed Thinking Thought content: Yes Paranoid delusion Perceptual disturbances: Yes Reacting to internal stimuli, Yes Auditory hallucinations Judgment: Limited Insight: Partial Results - Vital Signs Vital Signs: Temp Pulse Resp BP 97.2 F L 79 16 116/85 12/15/16 08:59 12/15/16 08:59 12/15/16 08:59 12/15/16 08:59 Assessment and Plan (1) Acute psychosis Current visit: No Status: Acute Additional Plan: Pt was court ordered today to stay in hospital . Involuntary meds were also granted. Will start on Consta 25 mg IM q 2 weeks. Will start on scheduled Cogentin for EPS. Risks, benefits, side effects, alternatives discussed w/pt: Yes Patient agreeable to treatment: Yes (2) Auditory hallucinations Current visit: No Status: Acute Risks, benefits, side effects, alternatives discussed w/pt: Yes Patient agreeable to treatment: Yes (3) Paranoid schizophrenia, chronic condition with acute exacerbation Current visit: No Status: Acute (4) Polysubstance abuse Current visit: No Status: Acute (5) Psychosis Current visit: No Status: Acute Qualifiers: Psychosis type: unspecified psychosis type Qualified Code(s): F29 - Unspecified psychosis not due to a substance or known physiological condition Consult Discharge Plan - Plan Referrals: [facility] [Outside] - 12/17/16 10:00 am (The above appointment is with Jill Jackson, counselor. You will also see Yaritza Ortiz CNP, on 2016 at 1:00 PM.)
[2016-12-15] MEDS: RisperiDAL 3 MG TABLET PO SCH (21:26)
[2016-12-15] MEDS: OLANZapine 10 MG TAB.RAPDIS PO SCH (21:26)
[2016-12-16] MEDS: *HR* LORazepam 0.5 MG TABLET PO SCH (08:26)
[2016-12-16] MEDS: Vitamin B Complex/Vit C/Vit E 1 EACH TABLET PO SCH (08:26)
[2016-12-16] MEDS: Aspirin Enteric Coated 325 MG Tablet PO SCH (08:26)
[2016-12-16] MEDS: Nicotine 21 MG PATCH.TD24 TD SCH (08:30)
[2016-12-16] MEDS: *HR* LORazepam 1 MG TABLET PO PRN (14:52)
--- NOTE | 2016-12-16 16:09 | Psychiatry Progress Note ---
Date of Encounter: 12/16/16 Time of Encounter: 16:07 Subjective Interval history: Pt reports that he does not seem to notice any s/e from Risperdal. He slept well last night. He is agreeable to take Consta . Review of Systems Psychiatric: Reports: depression, anxiety, auditory hallucinations, difficulty concentrating, irritability Objective: Exam Patient orientation: Yes Person, Yes Time, Yes Place Level of alertness: Alert Patient appearance: Appropriate, Unkempt, Disheveled, Malodorous, Average Behavior: cooperative, anxious, suspicious, fearful, distractible Psychomotor activity: Increased Eye contact: No Eye Contact Mood description: Depressed, Anxious Affect description: congruent with mood, flat Speech pattern: Slurred, Pressured Speech volume: Loud Thought process: Loose Associations, Slowed Thinking Thought content: Yes Paranoid delusion Perceptual disturbances: Yes Reacting to internal stimuli, Yes Auditory hallucinations Judgment: Limited Insight: Partial Results - Vital Signs Vital Signs: Temp Pulse Resp BP 97.8 F 79 18 126/84 12/16/16 08:39 12/16/16 08:39 12/16/16 08:39 12/16/16 08:39 Assessment and Plan (1) Acute psychosis Current visit: No Status: Acute Additional Plan: Pt was court ordered today to stay in hospital . Involuntary meds were also granted. Will start on Consta 25 mg IM q 2 weeks. Will start on scheduled Cogentin for EPS. Risks, benefits, side effects, alternatives discussed w/pt: Yes Patient agreeable to treatment: Yes (2) Auditory hallucinations Current visit: No Status: Acute Risks, benefits, side effects, alternatives discussed w/pt: Yes Patient agreeable to treatment: Yes (3) Paranoid schizophrenia, chronic condition with acute exacerbation Current visit: No Status: Acute (4) Polysubstance abuse Current visit: No Status: Acute (5) Psychosis Current visit: No Status: Acute Qualifiers: Psychosis type: unspecified psychosis type Qualified Code(s): F29 - Unspecified psychosis not due to a substance or known physiological condition Consult Discharge Plan - Plan Referrals: [facility] [Outside] - 12/29/16 1:00 pm (The above appointment is with Yaritza Ortiz CNP. You will also see Jill Jackson on)
[2016-12-16] MEDS ORDERED: *HR* LORazepam 0.5 MG TABLET PO PRN (16:15)
[2016-12-16] MEDS: Ibuprofen 400 MG TABLET PO PRN (17:41)
[2016-12-16] MEDS ORDERED: OLANZapine 5 MG TAB.RAPDIS PO SCH (21:00)
[2016-12-16] MEDS: RisperiDAL 3 MG TABLET PO SCH (21:08)
[2016-12-16] MEDS: traZODone 50 MG TABLET PO PRN (21:08)
[2016-12-17] MEDS: Nicotine 21 MG PATCH.TD24 TD SCH (08:57)
[2016-12-17] MEDS: Vitamin B Complex/Vit C/Vit E 1 EACH TABLET PO SCH (08:57)
[2016-12-17] MEDS: Aspirin Enteric Coated 325 MG Tablet PO SCH (08:57)
[2016-12-17] MEDS: Ibuprofen 400 MG TABLET PO PRN ×2 (12:23→21:15)
[2016-12-17] MEDS: hydrOXYzine pamoate 25 MG CAPSULE PO PRN (14:19)
[2016-12-17] MEDS ORDERED: RisperiDONE MICROSPHERES 25 MG/2 ML SYRINGE IM SCH (16:45)
--- NOTE | 2016-12-17 19:46 | Psychiatry Progress Note ---
Date of Encounter: 12/17/16 Time of Encounter: 19:44 Subjective Interval history: Pt reports his voices are almost gone. He got the Consta shot today and had no difficulty with it. He knows he needs to continue Risperdal orally for another 2 weeks.He slept OK Review of Systems Psychiatric: Reports: depression, auditory hallucinations, difficulty concentrating, irritability Objective: Exam Patient orientation: Yes Person, Yes Time, Yes Place Level of alertness: Alert Patient appearance: Appropriate, Unkempt, Disheveled, Malodorous, Average Behavior: cooperative, suspicious, distractible Psychomotor activity: Increased Eye contact: No Eye Contact Mood description: Depressed Affect description: congruent with mood, flat Speech pattern: Slurred, Pressured Speech volume: Loud Thought process: Loose Associations, Slowed Thinking Thought content: Yes Paranoid delusion Perceptual disturbances: Yes Reacting to internal stimuli, Yes Auditory hallucinations Judgment: Limited Insight: Partial Results - Vital Signs Vital Signs: Temp Pulse Resp BP 97.0 F L 76 16 125/78 12/17/16 09:00 12/17/16 09:00 12/17/16 09:00 12/17/16 09:00 Assessment and Plan (1) Acute psychosis Current visit: No Status: Acute Risks, benefits, side effects, alternatives discussed w/pt: Yes Patient agreeable to treatment: Yes (2) Auditory hallucinations Current visit: No Status: Acute Risks, benefits, side effects, alternatives discussed w/pt: Yes Patient agreeable to treatment: Yes (3) Paranoid schizophrenia, chronic condition with acute exacerbation Current visit: No Status: Acute Additional Plan: Will continue current meds . Will d/c Zyprexa as pt is now on Risperdal. (4) Polysubstance abuse Current visit: No Status: Acute (5) Psychosis Current visit: No Status: Acute Qualifiers: Psychosis type: unspecified psychosis type Qualified Code(s): F29 - Unspecified psychosis not due to a substance or known physiological condition Consult Discharge Plan - Plan Referrals: [facility] [Outside] - 12/29/16 1:00 pm (The above appointment is with Yaritza Ortiz CNP. You will also see Jill Jackson on)
[2016-12-17] MEDS: RisperiDAL 3 MG TABLET PO SCH (20:40)
[2016-12-17] MEDS: traZODone 50 MG TABLET PO PRN (21:15)
[2016-12-18] MEDS: Ibuprofen 400 MG TABLET PO PRN ×3 (03:28→20:22)
[2016-12-18] MEDS: Aspirin Enteric Coated 325 MG Tablet PO SCH (09:12)
[2016-12-18] MEDS: Vitamin B Complex/Vit C/Vit E 1 EACH TABLET PO SCH (09:12)
[2016-12-18] MEDS: Nicotine 21 MG PATCH.TD24 TD SCH (09:15)
[2016-12-18] MEDS: Loratadine 10 MG TABLET PO SCH (13:35)
--- NOTE | 2016-12-18 15:28 | Psychiatry Progress Note ---
Date of Encounter: 12/18/16 Time of Encounter: 15:25 Subjective Interval history: Pt reports that he has been having his skin itch and peel for many years. He reports decrease in his voices and does not feel frightened by it. He reports that he had no issues with the Consta shot yesterday. Slept better last night. Review of Systems Psychiatric: Reports: depression, auditory hallucinations, difficulty concentrating Objective: Exam Patient orientation: Yes Person, Yes Time, Yes Place Level of alertness: Alert Patient appearance: Appropriate, Unkempt, Disheveled, Malodorous, Average Behavior: cooperative, suspicious, distractible Psychomotor activity: Increased Eye contact: No Eye Contact Mood description: Depressed Affect description: congruent with mood Speech pattern: Slurred, Pressured Speech volume: Loud Thought process: Loose Associations, Slowed Thinking Thought content: Yes Paranoid delusion Perceptual disturbances: Yes Reacting to internal stimuli, Yes Auditory hallucinations Judgment: Limited Insight: Partial Results - Vital Signs Vital Signs: Temp Pulse Resp BP 97.9 F 71 18 120/78 12/18/16 09:00 12/18/16 09:00 12/18/16 09:00 12/18/16 09:00 Assessment and Plan (1) Acute psychosis Current visit: No Status: Acute Additional Plan: Continue oral Risperdal and overlap for 2 weeks with IM Consta. Risks, benefits, side effects, alternatives discussed w/pt: Yes Patient agreeable to treatment: Yes (2) Auditory hallucinations Current visit: No Status: Acute Risks, benefits, side effects, alternatives discussed w/pt: Yes Patient agreeable to treatment: Yes (3) Paranoid schizophrenia, chronic condition with acute exacerbation Current visit: No Status: Acute (4) Polysubstance abuse Current visit: No Status: Acute (5) Psychosis Current visit: No Status: Acute Qualifiers: Psychosis type: unspecified psychosis type Qualified Code(s): F29 - Unspecified psychosis not due to a substance or known physiological condition Consult Discharge Plan - Plan Additional Instructions: Patient received Risperdal Consta 25mg on 12/17/2016. Patient's next Risperdal Consta 25mg injection is due 12/31/2016. Referrals: [facility] [Outside] - 12/29/16 1:00 pm (The above appointment is with Yaritza Ortiz CNP. You will also see Jill Jackson on)
[2016-12-18] MEDS: RisperiDAL 3 MG TABLET PO SCH (20:22)
[2016-12-18] MEDS: traZODone 50 MG TABLET PO PRN (20:23)
[2016-12-19] MEDS: Ibuprofen 400 MG TABLET PO PRN ×2 (07:47→17:43)
[2016-12-19] MEDS: hydrOXYzine pamoate 25 MG CAPSULE PO PRN ×2 (07:48→17:43)
[2016-12-19] MEDS: Nicotine 21 MG PATCH.TD24 TD SCH (09:08)
[2016-12-19] MEDS: Aspirin Enteric Coated 325 MG Tablet PO SCH (09:08)
[2016-12-19] MEDS: Loratadine 10 MG TABLET PO SCH (09:08)
[2016-12-19] MEDS: Vitamin B Complex/Vit C/Vit E 1 EACH TABLET PO SCH (09:09)
[2016-12-19] MEDS: Mag Hydrox/Al Hydrox/Simeth 30 ML UDC PO PRN (11:23)
--- NOTE | 2016-12-19 14:36 | Psychiatry Progress Note ---
Date of Encounter: 12/19/16 Time of Encounter: 14:33 Subjective Interval history: Pt reports taht his voices are no longer there. He has some restlessness. Was able to sleep but had nightmares which he usually does not have. Review of Systems Psychiatric: Reports: depression, auditory hallucinations, difficulty concentrating Objective: Exam Patient orientation: Yes Person, Yes Time, Yes Place Level of alertness: Alert Patient appearance: Appropriate, Unkempt, Disheveled, Malodorous, Average Behavior: cooperative, suspicious Psychomotor activity: Normal Eye contact: Fleeting Contact Mood description: Euthymic/stable Affect description: congruent with mood Speech pattern: Slurred, Pressured Speech volume: Normal Thought process: Logical, Linear, Slowed Thinking Thought content: Yes Intact Perceptual disturbances: No Auditory hallucinations, No Visual hallucinations Judgment: Fair Insight: Partial Results - Vital Signs Vital Signs: Temp Pulse Resp BP 97.6 F 75 16 126/86 12/19/16 09:00 12/19/16 09:00 12/19/16 09:00 12/19/16 09:00 Assessment and Plan (1) Acute psychosis Current visit: No Status: Acute Additional Plan: Cont on Risperdal for 2 weeks with Consta then d/c oral Risperdal Risks, benefits, side effects, alternatives discussed w/pt: Yes Patient agreeable to treatment: Yes (2) Auditory hallucinations Current visit: No Status: Acute Risks, benefits, side effects, alternatives discussed w/pt: Yes Patient agreeable to treatment: Yes (3) Paranoid schizophrenia, chronic condition with acute exacerbation Current visit: No Status: Acute (4) Polysubstance abuse Current visit: No Status: Acute (5) Psychosis Current visit: No Status: Acute Qualifiers: Psychosis type: unspecified psychosis type Qualified Code(s): F29 - Unspecified psychosis not due to a substance or known physiological condition Consult Discharge Plan - Plan Additional Instructions: Patient received Risperdal Consta 25mg on 12/17/2016. Patient's next Risperdal Consta 25mg injection is due 12/31/2016. Referrals: [facility] [Outside] - 12/29/16 1:00 pm (The above appointment is with Yaritza Ortiz CNP. You will also see Jill Jackson on)
[2016-12-19] MEDS: traZODone 50 MG TABLET PO PRN (21:06)
[2016-12-19] MEDS: RisperiDAL 3 MG TABLET PO SCH (21:06)
[2016-12-20] MEDS: hydrOXYzine pamoate 25 MG CAPSULE PO PRN ×2 (03:00→10:27)
[2016-12-20] MEDS: Loratadine 10 MG TABLET PO SCH (08:32)
[2016-12-20] MEDS: Vitamin B Complex/Vit C/Vit E 1 EACH TABLET PO SCH (08:32)
[2016-12-20] MEDS: Aspirin Enteric Coated 325 MG Tablet PO SCH (08:32)
[2016-12-20] MEDS: Nicotine 21 MG PATCH.TD24 TD SCH (08:32)
[2016-12-20] MEDS: Mag Hydrox/Al Hydrox/Simeth 30 ML UDC PO PRN (09:32)
[2016-12-20] MEDS: Ibuprofen 400 MG TABLET PO PRN ×2 (10:26→21:41)
--- NOTE | 2016-12-20 11:09 | Psychiatry Progress Note ---
Date of Encounter: 12/20/16 Time of Encounter: 11:07 Subjective Interval history: Pt reports that he has a bit of restlessness though all his voices are gone. He is not sure if it is because he is getting discharged soon or if its a med s/e Review of Systems Psychiatric: Reports: depression, auditory hallucinations, difficulty concentrating Objective: Exam Patient orientation: Yes Person, Yes Time, Yes Place Level of alertness: Alert Patient appearance: Appropriate, Unkempt, Disheveled, Malodorous, Average Behavior: cooperative, suspicious Psychomotor activity: Normal Eye contact: Fleeting Contact Mood description: Euthymic/stable, Anxious Affect description: congruent with mood Speech pattern: Slurred, Pressured Speech volume: Normal Thought process: Logical, Linear, Slowed Thinking Thought content: Yes Intact Perceptual disturbances: No Auditory hallucinations, No Visual hallucinations Judgment: Fair Insight: Partial Results - Vital Signs Vital Signs: Temp Pulse Resp BP 96.5 F L 90 16 143/86 12/20/16 09:00 12/20/16 09:00 12/20/16 09:00 12/20/16 09:00 Assessment and Plan (1) Acute psychosis Current visit: No Status: Acute Additional Plan: Pt may be experiencing akathesia . Will start on Inderal bid. Risks, benefits, side effects, alternatives discussed w/pt: Yes Patient agreeable to treatment: Yes (2) Auditory hallucinations Current visit: No Status: Acute Risks, benefits, side effects, alternatives discussed w/pt: Yes Patient agreeable to treatment: Yes (3) Paranoid schizophrenia, chronic condition with acute exacerbation Current visit: No Status: Acute (4) Polysubstance abuse Current visit: No Status: Acute (5) Psychosis Current visit: No Status: Acute Qualifiers: Psychosis type: unspecified psychosis type Qualified Code(s): F29 - Unspecified psychosis not due to a substance or known physiological condition Consult Discharge Plan - Plan Additional Instructions: Patient received Risperdal Consta 25mg on 12/17/2016. Patient's next Risperdal Consta 25mg injection is due 12/31/2016. Referrals: [facility] [Outside] - 12/29/16 1:00 pm (The above appointment is with Yaritza Ortiz CNP. You will also see Jill Jackson on)
[2016-12-20] MEDS: RisperiDAL 3 MG TABLET PO SCH (20:13)
[2016-12-21] MEDS: traZODone 50 MG TABLET PO PRN ×2 (00:54→22:11)
[2016-12-21] MEDS: Loratadine 10 MG TABLET PO SCH (08:53)
[2016-12-21] MEDS: Vitamin B Complex/Vit C/Vit E 1 EACH TABLET PO SCH (08:53)
[2016-12-21] MEDS: Aspirin Enteric Coated 325 MG Tablet PO SCH (08:54)
[2016-12-21] MEDS: Nicotine 21 MG PATCH.TD24 TD SCH (08:56)
[2016-12-21] MEDS: Mag Hydrox/Al Hydrox/Simeth 30 ML UDC PO PRN (09:11)
[2016-12-21] MEDS: Ibuprofen 400 MG TABLET PO PRN ×2 (13:32→21:17)
[2016-12-21] MEDS: hydrOXYzine pamoate 25 MG CAPSULE PO PRN ×2 (13:32→21:17)
--- NOTE | 2016-12-21 14:51 | Psychiatry Progress Note ---
Date of Encounter: 12/21/16 Time of Encounter: 14:00 Subjective Interval history: Patient is here for follow-up. I reviewed recent notes and medication changes were noted. Staff reports he is anxious about discharge and pacing at time but overall tolerated the medication and denied auditory hallucinations. 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 Review of Systems Psychiatric: Reports: depression, auditory hallucinations, difficulty concentrating Objective: Exam Patient orientation: Yes Person, Yes Time, Yes Place Level of alertness: Alert Patient appearance: Appropriate, Unkempt, Average Behavior: cooperative, anxious Psychomotor activity: Normal Eye contact: Fleeting Contact Mood description: Euthymic/stable, Anxious Affect description: congruent with mood, blunted Speech pattern: Normal rate, Normal rhythm, Normal tone Speech volume: Normal Thought process: Logical, Linear, Slowed Thinking Thought content: Yes Paranoid delusion, Yes Obsessive thoughts Perceptual disturbances: No Auditory hallucinations, No Visual hallucinations Judgment: Fair Insight: Partial Results - Vital Signs Vital Signs: Temp Pulse Resp BP 97.2 F L 78 18 118/79 12/21/16 09:00 12/21/16 09:00 12/21/16 09:00 12/21/16 09:00 Assessment and Plan (1) Schizophrenia Current visit: No Status: Chronic Plan: Continue hospitalization, Close observation, Suicide Precautions per unit protocol, Encourage participation in unit milieu, Group Therapy, Monitor sleep, Monitor appetite Risks, benefits, side effects, alternatives discussed w/pt: Yes Patient agreeable to treatment: Yes Qualifiers: Schizophrenia type: paranoid schizophrenia Qualified Code(s): F20.0 - Paranoid schizophrenia Consult Discharge Plan - Plan Additional Instructions: Patient received Risperdal Consta 25mg on 12/17/2016. Patient's next Risperdal Consta 25mg injection is due 12/31/2016. Referrals: [facility] [Outside] - 12/29/16 1:00 pm (The above appointment is with Yaritza Ortiz CNP. You will also see Jill Jackson while you are in respite at [facility].)
[2016-12-21] MEDS: RisperiDAL 3 MG TABLET PO SCH (21:17)
[2016-12-21] MEDS: *HR* LORazepam 1 MG TABLET PO PRN (22:11)
[2016-12-22] MEDS: Vitamin B Complex/Vit C/Vit E 1 EACH TABLET PO SCH (08:32)
[2016-12-22] MEDS: Aspirin Enteric Coated 325 MG Tablet PO SCH (08:32)
[2016-12-22] MEDS: Loratadine 10 MG TABLET PO SCH (08:33)
[2016-12-22] MEDS: Nicotine 21 MG PATCH.TD24 TD SCH (08:33)
--- NOTE | 2016-12-22 10:57 | Internal Med History&Physical ---
Time of Encounter: 22:00 Assessment and Plan (1) Chest pain Current visit: No Status: Acute 1 patient was awakened and midsternal chest pressure which rates his left arm described as 10 out of 10 pressure was worse with inspiration and slowly ease on its own. For cyclic troponins have been negative we will continue cycle cardiac dependence. 2 EKG in a.m. 3 continuous cardiac monitoring 4 obtain d-dimer to rule out possible PE Qualifiers: Chest pain type: unspecified Qualified Code(s): R07.9 - Chest pain, unspecified (2) Hypertension Current visit: No Status: Chronic Patient has history of hypertension he is on lisinopril as her blood pressures controlled at 111 and we will hold lisinopril due to rising creatinine. We will resume once back to baseline Qualifiers: Hypertension type: essential hypertension Qualified Code(s): I10 - Essential (primary) hypertension (3) UTI (urinary tract infection) Current visit: No Status: Acute 1 on presentation to the ER patient did have nitrates and urine patient was started on Bactrim we will continue last dose is on 12/13/16 2 encourage oral fluids Qualifiers: Urinary tract infection type: acute cystitis Hematuria presence: with hematuria Qualified Code(s): N30.01 - Acute cystitis with hematuria (4) Paranoid schizophrenia, chronic condition with acute exacerbation Current visit: No Status: Acute 1 has chronic history of paranoid schizophrenia which is being managed by psychiatric team (5) YOVANI (acute kidney injury) Current visit: No Status: Acute Patient's creatinine was 1.09 on admission today 1.41. Upon review of old records. Creatinine is less than 1 at baseline. Patient is presently in psychiatric holguin receiving medications which are sedating suspected decrease in oral intake as well as he is taking might send a peripheral and Bactrim for UTI. We will hold lisinopril for now and encourage oral fluids we will give gentle IV hydration and monitor creatinine 2 avoid nephrotoxins 3 monitor intake and output Internal Medicine - H&P: HPI Chief complaint: Chest pain Admitted From: Intrahospital Transfer Plans for Post Hospital Care: Transfer Psych Facility History of present illness: Mr. Miller is a 36 year old male with a past medical hx of HTN hyperlipidemia tobacco abuse schizophrenia. Patient was seen as a consult for chest pain. Patient had previously been admitted to this facility due to exacerbations of paranoid schizophrenia and was admitted to for further treatment. The admission had been uneventful except for today when he was awakened from a nap with 10 out of 10 chest pressure rated his left arm with no other associated symptoms. Patient described the pain was worse upon inspiration and there were no relieving factors. During assessment patient did explain the pain had eased , was down to 7 out of 10 EKG was obtained and there were no ST-T wave abnormalities. First set of cardiac enzymes were negative. She does not have a past cardiac history he is a smoker of half pack a day's mother did have congestive heart failure and father had cardiac disease however unknown what type. This patient is well-known to nursing staff since he has had multiple admissions related to psychiatric history. They do express that the patient previously states that he has 10 out of 10 pain all over his body Due to patient's cardiac risk of hypertension and smoking and family history and unreliability of assessment due to psychiatric disorder, we will admitted to inpatient for further observation of chest pain. Past Med Surg Social Fam HX - Past Medical History Medical history: hyperlipidemia, hypertension, seizures, other Psychiatric history: schizophrenia - Past Surgical History Surgical History: appendectomy, arthroscopy - Social History Smoking Status: Current every day smoker Packs per day: 1 PPD Smokeless Tobacco Status: No Alcohol use: heavy, recent Drug use: marijuana - Family History Father Hx Family Cardiac Disorders: Yes Internal Medicine - H&P: Meds TraZODone 50 mg PO HS PRN #30 tablet 07/14/16 [Rx] Aspirin [Ecotrin] 325 mg PO DAILY #30 tablet. 12/01/16 [Rx] Lisinopril [Zestril] 5 mg PO DAILY #30 tablet 12/01/16 [Rx] OLANZapine [Zyprexa Zydis] 10 mg PO DAILY #30 tab.rapdis 12/01/16 [Rx] OLANZapine [Zyprexa] 15 mg PO HS #30 tablet 12/01/16 [Rx] Vitamin B Complex/Vit C/Vit E [Stresstab] 1 tab PO DAILY 12/05/16 [History] Haloperidol [Haldol] 10 mg PO BID 12/11/16 [History] LORazepam [Ativan] 0.5 mg PO BID 12/11/16 [History] LORazepam [Ativan] 1 mg PO Q4HR PRN 12/11/16 [History] Allergies No Known Allergies Allergy (Verified 11/22/16 20:45) ROS unobtainable: due to mental status All Systems PM: A 10-system review of systems was performed and is negative for pertinent findings except as documented above in the HPI. - Constitutional Vitals: Temp Pulse Resp BP 98.3 F 85 18 116/81 12/22/16 08:40 12/22/16 08:40 12/22/16 08:40 12/22/16 08:40 General appearance: Present: A&O X 2 - Head Head exam: Present: atraumatic, normocephalic - Eye Eye exam: Present: PERRL, conjuntiva pink, sclera anicteric Pupils: Present: PERRL - Neck Neck exam general surgery: Present: supple, trachea midline. Absent: lymphadenopathy - Respiratory Respiratory exam: Present: CTAB. Absent: accessory muscle use, rales, rhonchi, wheezes - Cardiovascular Cardiovascular exam: Present: RRR, +S1, +S2. Absent: diastolic murmur, gallop, rubs, systolic murmur - GI/Abdominal GI/Abdominal exam: Present: normal bowel sounds, soft, no peritoneal signs. Absent: distended, tenderness - Extremities Exam Extremities exam: Present: warm, radial pulses palpable and symetrical. Absent : calf tenderness, cyanotic, pedal edema - Neurological Exam Neurological exam: Present: CN II-XII intact, no focal deficits. Absent: pronater drift, facial droop, speech deficit Internal Med - H&P Results - EKG Data EKG shows normal: sinus rhythm Rate: normal - VTE Reasons for not Prescribing Prophylaxis: Treatment not Indicated - Low risk for VTE
--- NOTE | 2016-12-22 11:08 | Internal Med History&Physical ---
Date of Encounter: 12/11/16 Time of Encounter: 22:00 Assessment and Plan (1) Chest pain Current visit: No Status: Acute Patient's weight continue with midsternal chest pressure which raised his left arm described as 10 out of 10 pressure was worse with inspiration the pain was slowly eased on its own. Prescribed troponins have been negative we will continue suspect cardiac event. 2 into his cardiac monitoring will recheck EKG in a.m. 3 obtain d-dimer to rule out possible PE 4 nitroglycerin and oxygen as needed Qualifiers: Chest pain type: unspecified Qualified Code(s): R07.9 - Chest pain, unspecified (2) Hypertension Current visit: No Status: Chronic 2 patient has history of hypertension which is presently controlled systolic 111 we will hold lisinopril for now due to rising creatinine. We will resume once back to baseline Qualifiers: Hypertension type: essential hypertension Qualified Code(s): I10 - Essential (primary) hypertension (3) UTI (urinary tract infection) Current visit: No Status: Acute Upon presentation to the ER patient did have nitrates and his urine and he was started on Bactrim we will continue. Last dose is on 12/13/16.2 encourage oral fluids Qualifiers: Urinary tract infection type: acute cystitis Hematuria presence: with hematuria Qualified Code(s): N30.01 - Acute cystitis with hematuria (4) Paranoid schizophrenia, chronic condition with acute exacerbation Current visit: No Status: Acute 1 she has chronic history of paranoid schizophrenia this is being managed per psychiatric team. (5) YOVANI (acute kidney injury) Current visit: No Status: Acute 1 On admission patient's creatinine was 1.09 today 1.414 review records his creatinine is less than 1 baseline. Patient is presently in psychiatric holguin receiving medications which are sedating suspect his oral intake has been decreased on top of the fact patient is taking lisinopril and is on Bactrim for UTI which may be causing elevations creatinine. We will hold lisinopril for now encourage fluids monitor creatinine we will give IV fluids overnight 2 we will avoid nephrotoxins 3 months her intake and output Internal Medicine - H&P: HPI Chief complaint: Chest pain Admitted From: Intrahospital Transfer Plans for Post Hospital Care: Transfer Psych Facility History of present illness: This is a 36-year-old male with past medical history of hypertension hyperlipidemia tobacco abuse history. Patient admitted to psychiatric floor due to an exacerbation of paranoid schizophrenia. His admission has been uneventful except for today, the patient taken a nap and was awakened with 10 out of 10 chest pressure that radiated to his left arm there were no associated symptoms. The pressure was constant was worse upon inspiration there were no relieving factors. Upon assessment the patient stated the pain had eased and was down 7L 10. EKG was obtained there were no ST-T wave abnormalities about signs were stable. His first cardiac troponins were negative. He does not have any aspirate history he is a smoker of half pack a day does have hypertension. His mother did have congestive heart failure father had cardiac disease however unknown what type. There seems to have the patient he has had multiple admissions to psychiatric history. I did express the patient previously states he has 10 out of 10 pain all over his body. Due to the patient's current risk factors of hypertension smoking family history of heart disease and unreliability to assess pain due to psychiatric disease we will admit to inpatient and observe overnight. Past Med Surg Social Fam HX - Past Medical History Medical history: hyperlipidemia, hypertension, seizures, other Psychiatric history: schizophrenia - Past Surgical History Surgical History: appendectomy, arthroscopy - Social History Smoking Status: Current every day smoker Packs per day: 1 PPD Smokeless Tobacco Status: No Alcohol use: heavy, recent Drug use: marijuana - Family History Father Hx Family Cardiac Disorders: Yes Internal Medicine - H&P: Meds TraZODone 50 mg PO HS PRN #30 tablet 07/14/16 [Rx] Aspirin [Ecotrin] 325 mg PO DAILY #30 tablet. 12/01/16 [Rx] Lisinopril [Zestril] 5 mg PO DAILY #30 tablet 12/01/16 [Rx] OLANZapine [Zyprexa Zydis] 10 mg PO DAILY #30 tab.rapdis 12/01/16 [Rx] OLANZapine [Zyprexa] 15 mg PO HS #30 tablet 12/01/16 [Rx] Vitamin B Complex/Vit C/Vit E [Stresstab] 1 tab PO DAILY 12/05/16 [History] Haloperidol [Haldol] 10 mg PO BID 12/11/16 [History] LORazepam [Ativan] 0.5 mg PO BID 12/11/16 [History] LORazepam [Ativan] 1 mg PO Q4HR PRN 12/11/16 [History] Allergies No Known Allergies Allergy (Verified 11/22/16 20:45) ROS unobtainable: due to mental status All Systems PM: A 10-system review of systems was performed and is negative for pertinent findings except as documented above in the HPI. - Constitutional Vitals: Temp Pulse Resp BP 98.3 F 85 18 116/81 12/22/16 08:40 12/22/16 08:40 12/22/16 08:40 12/22/16 08:40 General appearance: Present: A&O X 2 - Head Head exam: Present: atraumatic, normocephalic - Eye Eye exam: Present: PERRL, conjuntiva pink, sclera anicteric Pupils: Present: PERRL - Neck Neck exam general surgery: Present: supple, trachea midline. Absent: lymphadenopathy - Respiratory Respiratory exam: Present: CTAB. Absent: accessory muscle use, rales, rhonchi, wheezes - Cardiovascular Cardiovascular exam: Present: RRR, +S1, +S2. Absent: diastolic murmur, gallop, rubs, systolic murmur - GI/Abdominal GI/Abdominal exam: Present: normal bowel sounds, soft, no peritoneal signs. Absent: distended, tenderness - Extremities Exam Extremities exam: Present: warm, radial pulses palpable and symetrical. Absent : calf tenderness, cyanotic, pedal edema - Neurological Exam Neurological exam: Present: CN II-XII intact, no focal deficits. Absent: pronater drift, facial droop, speech deficit - Skin Skin exam: Present: dry, intact Internal Med - H&P Results - EKG Data EKG shows normal: sinus rhythm - VTE Reasons for not Prescribing Prophylaxis: Treatment not Indicated - Low risk for VTE
[2016-12-22] MEDS: Ibuprofen 400 MG TABLET PO PRN (12:24)
[2016-12-22] MEDS: hydrOXYzine pamoate 25 MG CAPSULE PO PRN (12:27)
--- NOTE | 2016-12-22 13:03 | Psychiatry Progress Note ---
Date of Encounter: 12/22/16 Time of Encounter: 12:58 Subjective Interval history: Patient is here for follow-up. Nursing staff report the patient is having episodes of auditory hallucinations and paranoid delusions and was given when necessary medication. This medication were switched last week to risperidone oral and injectable. He is not stabilized on medication. Yet. He is pacing and seem anxious, he asked me about discharge and accepting my answer. I discussed with the treatment team short and long-term goals of treatment in anticipation of his chronic mental illness condition and expected deterioration over time. I will increase his medication and continue to monitor his response and discharge planning is ongoing. Review of Systems Psychiatric: Reports: depression, auditory hallucinations, difficulty concentrating Objective: Exam Patient orientation: Yes Person, Yes Time, Yes Place Level of alertness: Alert Patient appearance: Appropriate, Unkempt, Obese, Average Behavior: cooperative, anxious Psychomotor activity: Normal Eye contact: Fleeting Contact Mood description: Depressed, Anxious Affect description: congruent with mood, blunted Speech pattern: Normal rate, Normal rhythm, Normal tone Speech volume: Normal Thought process: Logical, Linear, Slowed Thinking Thought content: No Suicidal ideation, No Homicidal ideation, Yes Paranoid delusion, Yes Obsessive thoughts Perceptual disturbances: No Auditory hallucinations, No Visual hallucinations Judgment: Fair Insight: Partial Results - Vital Signs Vital Signs: Temp Pulse Resp BP 98.3 F 85 18 116/81 12/22/16 08:40 12/22/16 08:40 12/22/16 08:40 12/22/16 08:40 Assessment and Plan (1) Schizophrenia Current visit: No Status: Chronic Plan: Continue hospitalization, Close observation, Suicide Precautions per unit protocol, Encourage participation in unit milieu, Group Therapy, Monitor sleep, Monitor appetite Additional Plan: We will increase his Risperdal to 3 mg twice a day and increase his next Risperdal Consta to 50 mg IM every 2 weeks. Risks, benefits, side effects, alternatives discussed w/pt: Yes Patient agreeable to treatment: Yes Qualifiers: Schizophrenia type: paranoid schizophrenia Qualified Code(s): F20.0 - Paranoid schizophrenia Consult Discharge Plan - Plan Additional Instructions: Patient received Risperdal Consta 25mg on 12/17/2016. Patient's next Risperdal Consta will be a 50mg injection and is due 12/31/2016. Referrals: [facility] [Outside] - 12/29/16 1:00 pm (The above appointment is with Yaritza Ortiz CNP. You will also see Jill Jackson while you are in respite at [facility] [place].)
[2016-12-22] MEDS ORDERED: risperiDONE 1 MG TABLET PO ONE (13:38)
[2016-12-22] MEDS: Mag Hydrox/Al Hydrox/Simeth 30 ML UDC PO PRN (15:10)
[2016-12-22] MEDS: *HR* LORazepam 1 MG TABLET PO PRN (16:12)
[2016-12-22] MEDS: RisperiDAL 3 MG TABLET PO SCH (20:12)
[2016-12-23] MEDS: Aspirin Enteric Coated 325 MG Tablet PO SCH (09:16)
[2016-12-23] MEDS: Loratadine 10 MG TABLET PO SCH (09:16)
[2016-12-23] MEDS: RisperiDAL 3 MG TABLET PO SCH ×2 (09:19→20:39)
[2016-12-23] MEDS: Vitamin B Complex/Vit C/Vit E 1 EACH TABLET PO SCH (09:20)
[2016-12-23] MEDS: Nicotine 21 MG PATCH.TD24 TD SCH (09:22)
[2016-12-23] MEDS: hydrOXYzine pamoate 25 MG CAPSULE PO PRN ×2 (13:00→19:45)
--- NOTE | 2016-12-23 14:17 | Psychiatry Progress Note ---
Date of Encounter: 12/23/16 Time of Encounter: 14:13 Subjective Interval history: Patient is seen for follow-up. Nursing staff reports he responded well to addition of Haldol to Risperdal and denied having auditory hallucinations and he is more interactive and his affect is brighter. I ordered her Haldol to be given regularly 5 mg twice daily along with his Risperdal and in addition to Risperdal Consta. He seemed to be responding well to this combination and will continue to monitor him. His discharge planning is pending his stabilization and he is making good progress. Review of Systems Psychiatric: Reports: depression, auditory hallucinations, difficulty concentrating Objective: Exam Patient orientation: Yes Person, Yes Time, Yes Place Level of alertness: Alert Patient appearance: Appropriate, Well Groomed, Obese, Average Behavior: cooperative, anxious Psychomotor activity: Normal Eye contact: Fleeting Contact Mood description: Euthymic/stable, Anxious Affect description: congruent with mood, blunted Speech pattern: Normal rate, Normal rhythm, Normal tone Speech volume: Normal Thought process: Logical, Linear, Slowed Thinking Thought content: No Suicidal ideation, No Homicidal ideation, Yes Paranoid delusion, Yes Obsessive thoughts Perceptual disturbances: No Auditory hallucinations, No Visual hallucinations Judgment: Fair Insight: Partial Results - Vital Signs Vital Signs: Temp Pulse Resp BP 98.2 F 98 18 140/93 12/23/16 08:31 12/23/16 08:31 12/23/16 08:31 12/23/16 08:31 Assessment and Plan (1) Schizophrenia Current visit: No Status: Chronic Plan: Continue hospitalization, Close observation, Suicide Precautions per unit protocol, Encourage participation in unit milieu, Group Therapy, Monitor sleep, Monitor appetite Risks, benefits, side effects, alternatives discussed w/pt: Yes Patient agreeable to treatment: Yes Qualifiers: Schizophrenia type: paranoid schizophrenia Qualified Code(s): F20.0 - Paranoid schizophrenia Consult Discharge Plan - Plan Additional Instructions: Patient received Risperdal Consta 25mg on 12/17/2016. Patient's next Risperdal Consta will be a 50mg injection and is due 12/31/2016. Referrals: [facility] [Outside] - 12/29/16 1:00 pm (The above appointment is with Yaritza Ortiz CNP. You will also see Jill Jackson while you are in respite at [facility] [place].)
[2016-12-23] MEDS: Mag Hydrox/Al Hydrox/Simeth 30 ML UDC PO PRN (18:00)
[2016-12-23] MEDS: traZODone 50 MG TABLET PO PRN (20:39)
[2016-12-23] MEDS: Ibuprofen 400 MG TABLET PO PRN (20:39)
[2016-12-24] MEDS: Vitamin B Complex/Vit C/Vit E 1 EACH TABLET PO SCH (08:32)
[2016-12-24] MEDS: RisperiDAL 3 MG TABLET PO SCH ×2 (08:33→20:37)
[2016-12-24] MEDS: Loratadine 10 MG TABLET PO SCH (08:33)
[2016-12-24] MEDS: Aspirin Enteric Coated 325 MG Tablet PO SCH (08:35)
[2016-12-24] MEDS: Nicotine 21 MG PATCH.TD24 TD SCH (08:37)
--- NOTE | 2016-12-24 13:52 | Psychiatry Progress Note ---
Date of Encounter: 12/24/16 Time of Encounter: 13:45 Subjective Interval history: Patient is here for follow-up. Staff reports he is hearing voices occasionally but cannot understand what they say. His mood and affect are bright and he is interacting with his peers appropriately and social. He is not reporting any side effects or extrapyramidal symptoms. He seemed to be responding adequately to the combination of Risperdal and Haldol. We will continue to monitor. Review of Systems Psychiatric: Reports: depression, auditory hallucinations, difficulty concentrating Objective: Exam Patient orientation: Yes Person, Yes Time, Yes Place Level of alertness: Alert Patient appearance: Appropriate, Well Groomed, Obese, Average Behavior: cooperative, anxious Psychomotor activity: Normal Eye contact: Fleeting Contact Mood description: Euthymic/stable, Anxious Affect description: congruent with mood, blunted Speech pattern: Normal rate, Normal rhythm, Normal tone Speech volume: Normal Thought process: Logical, Linear, Slowed Thinking Thought content: No Suicidal ideation, No Homicidal ideation, Yes Paranoid delusion, Yes Obsessive thoughts Perceptual disturbances: Yes Auditory hallucinations, No Visual hallucinations Judgment: Fair Insight: Partial Results - Vital Signs Vital Signs: Temp Pulse Resp BP 97.7 F 87 16 129/90 12/24/16 08:35 12/24/16 08:35 12/24/16 08:35 12/24/16 08:35 Assessment and Plan (1) Schizophrenia Current visit: No Status: Chronic Plan: Continue hospitalization, Close observation, Suicide Precautions per unit protocol, Encourage participation in unit milieu, Group Therapy, Monitor sleep, Monitor appetite Risks, benefits, side effects, alternatives discussed w/pt: Yes Patient agreeable to treatment: Yes Qualifiers: Schizophrenia type: paranoid schizophrenia Qualified Code(s): F20.0 - Paranoid schizophrenia Consult Discharge Plan - Plan Additional Instructions: Patient received Risperdal Consta 25mg on 12/17/2016. Patient's next Risperdal Consta will be a 50mg injection and is due 12/31/2016. Referrals: [facility] [Outside] - 12/29/16 1:00 pm (The above appointment is with Yaritza Ortiz CNP. You will also see Jill Jackson while you are in respite at [facility] [place].)
[2016-12-24] MEDS: hydrOXYzine pamoate 25 MG CAPSULE PO PRN (15:23)
[2016-12-24] MEDS: Ibuprofen 400 MG TABLET PO PRN (15:23)
[2016-12-24] MEDS: Mag Hydrox/Al Hydrox/Simeth 30 ML UDC PO PRN (15:24)
[2016-12-24] MEDS: *HR* LORazepam 1 MG TABLET PO PRN (17:44)
[2016-12-25 08:48] VITALS: BP 139/86
[2016-12-25] MEDS: Aspirin Enteric Coated 325 MG Tablet PO SCH (08:57)
[2016-12-25] MEDS: Loratadine 10 MG TABLET PO SCH (08:57)
[2016-12-25] MEDS: Vitamin B Complex/Vit C/Vit E 1 EACH TABLET PO SCH (08:57)
[2016-12-25] MEDS: RisperiDAL 3 MG TABLET PO SCH (08:57)
[2016-12-25] MEDS: Nicotine 21 MG PATCH.TD24 TD SCH (08:57)
[2016-12-25] MEDS: hydrOXYzine pamoate 25 MG CAPSULE PO PRN (09:24)
--- NOTE | 2016-12-25 11:24 | Discharge Summary ---
Date of Encounter: 12/25/16 Time of Encounter: 11:15 Diagnosis - Discharge Diagnosis (1) Schizophrenia Priority: Primary Status: Chronic Qualifiers: Schizophrenia type: paranoid schizophrenia Qualified Code(s): F20.0 - Paranoid schizophrenia Medications - Discharge Medications Prescriptions: Amantadine [Symmetrel] 100 mg PO BID #30 capsule Benztropine [Cogentin] 0.5 mg PO BID #30 tablet Haloperidol [Haldol] 5 mg PO BID #60 tablet LORazepam [Ativan] 0.5 mg PO BID #30 tablet Propranolol [Inderal] 20 mg PO BID #60 tablet RisperiDONE [RisperDAL] 3 mg PO BID #60 tablet TraZODone 50 mg PO HS PRN #30 tablet 07/14/16 [Rx] Aspirin [Ecotrin] 325 mg PO DAILY #30 tablet. 12/01/16 [Rx] Lisinopril [Zestril] 5 mg PO DAILY #30 tablet 12/01/16 [Rx] Vitamin B Complex/Vit C/Vit E [Stresstab] 1 tab PO DAILY 12/05/16 [History] Amantadine [Symmetrel] 100 mg PO BID #30 capsule 12/25/16 [Rx] Benztropine [Cogentin] 0.5 mg PO BID #30 tablet 12/25/16 [Rx] Haloperidol [Haldol] 5 mg PO BID #60 tablet 12/25/16 [Rx] LORazepam [Ativan] 0.5 mg PO BID #30 tablet 12/25/16 [Rx] Propranolol [Inderal] 20 mg PO BID #60 tablet 12/25/16 [Rx] RisperiDONE [RisperDAL] 3 mg PO BID #60 tablet 12/25/16 [Rx] Allergies No Known Allergies Allergy (Verified 11/22/16 20:45) Provider Date of admission: 12/13/16 16:52 Primary care physician: PCP NO Consults: 12/13/16 18:13 Consult to Pastoral Services [CONS] Routine Comment: 12/20/16 14:01 Consult to Pastoral Services [CONS] Routine Comment: Discharging clinician: Antonio Philip Assessment and Plan - Patient/Caregiver Discharge Instructions Activity: resume usual activities as tolerated Diet: regular diet Additional Instructions: Patient received Risperdal Consta 25mg on 12/17/2016. Patient's next Risperdal Consta will be a 50mg injection and is due 12/31/2016. - Follow up Plan Follow up with: [facility] [Outside] - 12/29/16 1:00 pm (The above appointment is with Yaritza Ortiz CNP. You will also see Jill Jackson while you are in respite at [facility] [place].) Functional capacity at discharge: independent ambulation Overall status at discharge: Stable Disposition: Home, Self-Care Hospital Course Hospital course: Mr. Miller is a 36 year old male admitted for decompensated paranoid schizophrenia. Also patient was noncompliant with his medication. For details of the admission please see H&P. Patient returned to behavioral Health unit from the medical floor where he was evaluated and treated for chest pain. His medication were adjusted and he was taken off Zyprexa and placed on Risperdal in addition to Risperdal Consta. Patient continued to experience auditory hallucination and paranoia and Haldol was added to Risperdal. Patient responded well to the combination and denied having any auditory hallucination and denied any suicidal ideation and displayed improved mood and affect and participated in some activities. Prior to discharge patient was medically stable, denied auditory hallucination and denies suicidal ideation and his discharge plans were reviewed and completed by the manager social. - Time Spent with Patient Total time spent providing and/or coordinating discharge services: Less than 30 minutes Quality - Multiple Antipsychotics Patient discharged on 2 or more antipsychotic medications: Yes - Justification Documentation of: History 3 failed trials of monotherapy (Patient did not respond adequately to monotherapy including Zyprexa, Risperdal and Haldol) Procedures - Procedures Procedures: Medication Management, Crisis Stabilization, Supportive Therapy, Group Therapy, Psychoeducational Therapy Mental Status Exam - Mental Status Exam Patient orientation: Yes Person, Yes Time, Yes Place Level of alertness: Alert Patient appearance: Appropriate, Well Groomed, Obese, Average Behavior: calm, cooperative, anxious Psychomotor activity: Normal Eye contact: Fleeting Contact Mood description: Euthymic/stable, Anxious Affect description: congruent with mood, blunted Speech pattern: Normal rate, Normal rhythm, Normal tone Speech Volume: Normal Thought process: Logical, Linear, Slowed Thinking Thought Content: No Suicidal ideation, No Homicidal ideation, Yes Paranoid delusion, Yes Obsessive thoughts Perceptual Disturbances: No Auditory hallucinations, No Visual hallucinations Judgment: Fair Insight: Partial
== END 2016-12-25 13:15 | disposition other institution (70) | DRG 750 ==
LOC: SUATTDRO 16:52 → 1ANU 16:52
PROVIDERS: ADMIT Psychiatry & Neurology Psychiatry; ATTEND Psychiatry & Neurology Psychiatry

== ENCOUNTER 2017-01-09 10:51 | Inpatient (IN) ==
[2017-01-09 11:30] LABS: Basophils # 0.1 K/mcL (0.0-0.2); Basophils % 0.5 %; Eosinophils # 0.1 K/mcL (0.0-0.6); Eosinophils % 0.4 %; Hematocrit 50.7 % (37.5-50.1); Immature Granulocytes % 0.4 % (0-4); Lymphocytes % 15.9 %; Mean Corpuscular HGB Conc 34.3 g/dL (31.6-35.5); Mean Corpuscular Hemoglobin 31.2 pg (28.0-33.3); Mean Platelet Volume 10.3 fL (9.4-12.4); Monocytes # 1.3 K/mcL (0.0-1.3); Platelet Count 355 K/mcL (140-400); Red Blood Count 5.57 M/mcL (4.19-5.50); Red Cell Distribution Width 12.7 % (11.5-14.5); Segmented Neutrophils % 72.8 %
[2017-01-09 11:32] LABS: Hemoglobin 17.4 g/dL (12.9-16.9); Neutrophils # 9.3 K/mcL (1.6-8.9)
[2017-01-09 11:43] LABS: BUN/Creatinine Ratio 16 (6-26); Blood Urea Nitrogen 16 mg/dL (8-26); Calcium 10.3 mg/dL (8.6-10.8); Carbon Dioxide 19 mEq/L (19-29); Chloride 107 mEq/L (98-109); Glucose 115 mg/dL (70-99); Osmolality,Calculated 296 (280-300); Potassium 3.8 mEq/L (3.5-4.5); Sodium 142 mEq/L (136-145); eGFR For African Americans > 60 (> 60); eGFR For Non-African Americans > 60 (> 60)
[2017-01-09 11:45] LABS: Acetaminophen < 1.0 mcg/mL (10-30); Ethanol < 10 mg/dL (0-10); Salicylate < 5.0 mg/dL (15-30)
--- NOTE | 2017-01-09 12:02 | Emergency Department Note ---
Disposition Clinical Impression: Suicidal ideation Depression Qualifiers: Depression Type: unspecified Qualified Code(s): F32.9 - Major depressive disorder, single episode, unspecified Disposition: Admitted As Inpatient Condition: Fair Referrals: NO,PCP [Primary Care Provider] - Forms: ED Satisfaction Letter Time of Disposition: 15:17 Psych HPI - General Chief Complaint: ED Psychiatric Symptoms Stated Complaint: psych eval Time Seen by Provider: 01/09/17 10:56 Source: EMS Limitations: no limitations Nursing Notes Reviewed: Yes Vital Signs Reviewed: Yes - History of Present Illness HPI Narrative: Patient presents emergency room suicidal ideations. He has had this multiple times in the past. Denies any new symptoms or complaints Pt complaint: suicidal ideation Onset (ago): Just [facility]OSP[facility] ATTENDANT History of similar episodes: Yes Improves with: none Worsens with: none Alleged intoxication: No Associated symptoms: Reports: denies other symptoms Traumatic symptoms: denies traumatic injury Treatments prior to arrival: none Self harm or harm to others: admits thoughts of self harm, has plan - Related Data Home Medications Medication Instructions Recorded Confirmed Vitamin B Complex/Vit C/Vit E 1 tab PO DAILY 12/05/16 01/09/17 [Stresstab] Previous Rx's Medication Instructions Recorded TraZODone 50 mg PO HS PRN #30 tablet 07/14/16 Aspirin [Ecotrin] 325 mg PO DAILY #30 tablet. 12/01/16 Lisinopril [Zestril] 5 mg PO DAILY #30 tablet 12/01/16 Amantadine [Symmetrel] 100 mg PO BID #30 capsule 12/25/16 Benztropine [Cogentin] 0.5 mg PO BID #30 tablet 12/25/16 Haloperidol [Haldol] 5 mg PO BID #60 tablet 12/25/16 LORazepam [Ativan] 0.5 mg PO BID #30 tablet 12/25/16 Propranolol [Inderal] 20 mg PO BID #60 tablet 12/25/16 RisperiDONE [RisperDAL] 3 mg PO BID #60 tablet 12/25/16 Ciprofloxacin HCl [Cipro] 500 mg PO BID #20 tablet 01/06/17 Allergies Allergy/AdvReac Type Severity Reaction Status Date / Time No Known Allergies Allergy Verified 11/22/16 20:45 All systems ED: reviewed and negative except as stated. Constitutional: Denies: fever, chills Cardiovascular: Denies: chest pain, palpitations Respiratory: Denies: dyspnea, wheezes Gastrointestinal: Denies: nausea, vomiting, diarrhea Musculoskeletal: Denies: back pain, neck pain Psychiatric: Reports: depression, suicidal thoughts. Denies: anxiety Past Medical History - Past Medical History Attestation: Yes The following information was validated with the patient. Source: patient Medical history: Reports: hyperlipidemia, hypertension, seizures, other Surgical history: Reports: appendectomy, arthroscopy Psychiatric history: Reports: schizophrenia - Social History Smoking Status: Current every day smoker Smokeless Tobacco Status: No Alcohol use: Reports: heavy Drug use: Reports: marijuana Physical Exam - General Limitations: altered mental status General appearance: alert, anxious - Head Head exam: atraumatic, normocephalic, normal inspection - Eye Eye exam: Present: normal appearance, PERRL, EOMI - Respiratory Respiratory exam: Present: normal lung sounds bilaterally - Cardiovascular Cardiovascular exam: Present: normal rhythm, tachycardia, normal heart sounds - Abdominal Exam Abdominal exam: Present: soft, Non-Tender. Absent: tenderness, distention, guarding, rebound, rigidity - Extremities Exam Extremities exam: Present: normal inspection, full ROM. Absent: tenderness, pedal edema - Back Exam Back exam: Present: normal inspection, full ROM. Absent: tenderness - Neurological Exam Neurological exam: Present: alert, oriented X3, CN II-XII intact - Psychiatric Psychiatric exam: Present: depressed, flat affect, suicidal ideation Course Course Narrative: Patient seen and examined the time of my shift starting. Patient presents to the emergency room with suicidal ideation. He is well known to this emergency room is been evaluated multiple times where psychiatric team. He has baseline auditory and visual hallucinations. He is complaining of both of these aspects of this time. Denies any medication changes no trauma or recent injury. Vital signs in presentation are stable except for tachycardia. Patient was covered in bedbugs. He does have a postoperative according to him he is not homeless. He has been taking his medications. The only thing that he is willing to verbalize during our evaluation besides shaking his head yes and no is that he wants to see our psychiatric team. Patient had basic psychiatric evaluation. On my physical exam lungs are clear heart is regular abdomen is soft. He is showing signs of a flat affect but no other acute signs of trauma or injury. Disposition pending treatment course and evaluation. Otherwise no other acute findings on evaluation - Reevaluation(s) Reevaluation #1: Labs are negative at this time. Patient has been cleared medically for evaluation by one a. No infectious etiology noted on this evaluation. Patient to be seen at this time for psychiatric treatment course Time: 13:20 Reevaluation #2: Patient evaluated by psychiatry except for the patient for evaluation Time: 15:33 - Consultations Consultation #1: Accepted by psych Time: 15:17 Vital Signs Temperature 98.3 F 01/09/17 10:54 Pulse Rate 131 01/09/17 10:54 Respiratory Rate 22 01/09/17 10:54 Blood Pressure 162/100 01/09/17 10:54 O2 Sat by Pulse Oximetry 98 01/09/17 10:54 Temperature 98.3 F 01/09/17 10:54 Pulse Rate 131 01/09/17 10:54 Respiratory Rate 22 01/09/17 10:54 Blood Pressure 162/100 01/09/17 10:54 O2 Sat by Pulse Oximetry 98 01/09/17 10:54 Oxygen Delivery Oxygen Delivery Room Air Psych - MDM Narrative Medical decision making narrative: Psychiatric evaluation - Lab Data Lab results reviewed: Yes I reviewed the patient's lab results. Result diagrams: 01/09/17 11:17 01/09/17 11:17 Lab Results 01/09/17 01/09/17 01/09/17 Range/Units 11:17 11:17 13:00 WBC 12.7 H D (4.3-11.1) K/mcL RBC 5.57 H (4.19-5.50) M/mcL Hgb 17.4 H D (12.9-16.9) g/dL Hct 50.7 H (37.5-50.1) % MCV 91.0 (83.0-100.0) fL MCH 31.2 (28.0-33.3) pg MCHC 34.3 (31.6-35.5) g/dL RDW 12.7 (11.5-14.5) % Plt Count 355 (140-400) K/mcL MPV 10.3 (9.4-12.4) fL Immature Gran % 0.4 (0-4) % Seg Neutrophils % 72.8 % Lymphocytes % 15.9 % Monocytes % 10.0 % Eosinophils % 0.4 % Basophils % 0.5 % Neutrophils # 9.3 H (1.6-8.9) K/mcL Lymphocytes # 2.0 (0.6-4.6) K/mcL Monocytes # 1.3 (0.0-1.3) K/mcL Eosinophils # 0.1 (0.0-0.6) K/mcL Basophils # 0.1 (0.0-0.2) K/mcL Sodium 142 (136-145) mEq/L Potassium 3.8 (3.5-4.5) mEq/L Chloride 107 (98-109) mEq/L Carbon Dioxide 19 (19-29) mEq/L BUN 16 (8-26) mg/dL Creatinine 1.00 (0.72-1.25) mg/dL Est GFR ( Amer) > 60 (> 60) Est GFR (Non-Af Amer) > 60 (> 60) BUN/Creatinine Ratio 16 (6-26) Glucose 115 H (70-99) mg/dL Calculated Osmolality 296 (280-300) Calcium 10.3 (8.6-10.8) mg/dL Urine Color Dark Yellow (Yellow) Urine Clarity Clear (Clear) Urine pH 6.0 (5.0-8.0) pH Units Ur Specific Robert > 1.030 H (1.010-1.025) Urine Protein 30 H (Neg-Trace) mg/dL Urine Glucose (UA) Normal (Normal) mg/dL Urine Ketones 40 H (Negative) mg/dL Urine Blood Negative (Negative) Urine Nitrite Negative (Negative) Urine Bilirubin Small H (Negative) Urine Urobilinogen Normal (Normal) mg/dL Ur Leukocyte Esterase Negative (Negative) Urine Microscopic RBC 3-5 H (0-3) per hpf Urine Microscopic WBC 3-5 H (0-3) per hpf Ur Squamous Epith Cells Many H (None-Few) per lpf Urine Bacteria None Seen (None-Few) per hpf Hyaline Casts None Seen (None-Few) per lpf Salicylates < 5.0 L (15-30) mg/dL Urine Opiates Screen (Mskbre=583) ng/mL Acetaminophen < 1.0 L (10-30) mcg/mL Ur Barbiturates Screen (Nszgnm=780) ng/mL Ur Phencyclidine Scrn (Cutoff=25) ng/mL Ur Amphetamines Screen (Htvkra=7039) ng/mL U Benzodiazepines Scrn (Zcpecz=187) ng/mL Urine Cocaine Screen (Cutoff= 300) ng/mL U Marijuana (THC) Screen (Cutoff = 50) ng/mL Ethyl Alcohol < 10 (0-10) mg/dL 01/09/17 Range/Units 13:00 WBC (4.3-11.1) K/mcL RBC (4.19-5.50) M/mcL Hgb (12.9-16.9) g/dL Hct (37.5-50.1) % MCV (83.0-100.0) fL MCH (28.0-33.3) pg MCHC (31.6-35.5) g/dL RDW (11.5-14.5) % Plt Count (140-400) K/mcL MPV (9.4-12.4) fL Immature Gran % (0-4) % Seg Neutrophils % % Lymphocytes % % Monocytes % % Eosinophils % % Basophils % % Neutrophils # (1.6-8.9) K/mcL Lymphocytes # (0.6-4.6) K/mcL Monocytes # (0.0-1.3) K/mcL Eosinophils # (0.0-0.6) K/mcL Basophils # (0.0-0.2) K/mcL Sodium (136-145) mEq/L Potassium (3.5-4.5) mEq/L Chloride (98-109) mEq/L Carbon Dioxide (19-29) mEq/L BUN (8-26) mg/dL Creatinine (0.72-1.25) mg/dL Est GFR ( Amer) (> 60) Est GFR (Non-Af Amer) (> 60) BUN/Creatinine Ratio (6-26) Glucose (70-99) mg/dL Calculated Osmolality (280-300) Calcium (8.6-10.8) mg/dL Urine Color (Yellow) Urine Clarity (Clear) Urine pH (5.0-8.0) pH Units Ur Specific Robert (1.010-1.025) Urine Protein (Neg-Trace) mg/dL Urine Glucose (UA) (Normal) mg/dL Urine Ketones (Negative) mg/dL Urine Blood (Negative) Urine Nitrite (Negative) Urine Bilirubin (Negative) Urine Urobilinogen (Normal) mg/dL Ur Leukocyte Esterase (Negative) Urine Microscopic RBC (0-3) per hpf Urine Microscopic WBC (0-3) per hpf Ur Squamous Epith Cells (None-Few) per lpf Urine Bacteria (None-Few) per hpf Hyaline Casts (None-Few) per lpf Salicylates (15-30) mg/dL Urine Opiates Screen Negative (Nxzfmq=658) ng/mL Acetaminophen (10-30) mcg/mL Ur Barbiturates Screen Negative (Ztblym=741) ng/mL Ur Phencyclidine Scrn Negative (Cutoff=25) ng/mL Ur Amphetamines Screen Negative (Evkabu=8966) ng/mL U Benzodiazepines Scrn Negative (Iahqal=296) ng/mL Urine Cocaine Screen Negative (Cutoff= 300) ng/mL U Marijuana (THC) Screen Negative (Cutoff = 50) ng/mL Ethyl Alcohol (0-10) mg/dL Psychiatric Medical Clearance - Medical Clearance Checklist Does the patient have a NEW psychiatric condition?: No Any abnormalities indicating possible medical illness?: No Any history of medical issues?: No Medical History: No Social History Section defined Any abnormal vital signs prior to transfer?: No Current Vitals: Last Vital Signs Temp 98.3 F 01/09/17 10:54 Pulse 131 01/09/17 10:54 Resp 22 01/09/17 10:54 BP 162/100 01/09/17 10:54 Pulse Ox 98 01/09/17 10:54 Is the patient intoxicated or cognitively impaired?: No Psychiatric Lab Panel: Drug Levels and Toxicity 01/09/17 01/09/17 11:17 13:00 Urine Opiates Screen Negative Acetaminophen < 1.0 L Ur Barbiturates Screen Negative Ur Phencyclidine Scrn Negative Ur Amphetamines Screen Negative U Benzodiazepines Scrn Negative Urine Cocaine Screen Negative U Marijuana (THC) Screen Negative Ethyl Alcohol < 10 Any abnormalities on the physical exam?: No Any abnormal labs?: No Abnormal Labs: Abnormal lab results WBC 12.7 K/mcL (4.3-11.1) H D 01/09/17 11:17 RBC 5.57 M/mcL (4.19-5.50) H 01/09/17 11:17 Hgb 17.4 g/dL (12.9-16.9) H D 01/09/17 11:17 Hct 50.7 % (37.5-50.1) H 01/09/17 11:17 Neutrophils # 9.3 K/mcL (1.6-8.9) H 01/09/17 11:17 Glucose 115 mg/dL (70-99) H 01/09/17 11:17 Ur Specific Robert > 1.030 (1.010-1.025) H 01/09/17 13:00 Urine Protein 30 mg/dL (Neg-Trace) H 01/09/17 13:00 Urine Ketones 40 mg/dL (Negative) H 01/09/17 13:00 Urine Bilirubin Small (Negative) H 01/09/17 13:00 Urine Microscopic RBC 3-5 per hpf (0-3) H 01/09/17 13:00 Urine Microscopic WBC 3-5 per hpf (0-3) H 01/09/17 13:00 Ur Squamous Epith Cells Many per lpf (None-Few) H 01/09/17 13:00 Salicylates < 5.0 mg/dL (15-30) L 01/09/17 11:17 Acetaminophen < 1.0 mcg/mL (10-30) L 01/09/17 11:17 Does the patient require durable medical equiptment?: No Is the patient ambulatory?: No Is the patient a fall risk?: No Has the patient been medically cleared?: Yes Any acute medical condition require Tx prior to transfer?: No Statement of Medical Clearance: I have evaluated the patient, reviewed diagnostic information, and certify that the patient's medical condition is sufficiently stable that transfer to the psychiatric unit does not pose a significant risk of deterioration. Attestation Statement - Attestation Attestation: I examined this patient and my medical decision-making was reviewed with the AERIAL GUNNER/PA/Advanced Practice Nurse/Resident Physician. I agree with the documented findings, disposition and treatment plan as described except to the extent set forth below. Emergency department with suicidal thoughts. History of the same. No physical complaints. On examination he has a very flat affect. Ambulatory. Lungs clear. Plan. Medical clearance and psych eval.
[2017-01-09 13:08] LABS: Bilirubin,Urine Small (Negative); Blood,Urine Negative (Negative); Clarity,Urine Clear (Clear); Color,Urine Dark Yellow (Yellow); Glucose,Urine (UA) Normal (Normal); Ketones,Urine 40 mg/dL (Negative); Leukocyte Esterase,Urine Negative (Negative); Nitrite,Urine Negative (Negative); Protein,Urine 30 mg/dL (Neg-Trace); Specific Gravity,Urine > 1.030 (1.010-1.025); Urobilinogen,Urine Normal (Normal)
[2017-01-09 13:10] LABS: Bacteria,Urine None Seen per hpf (None-Few); Hyaline Casts,Urine None Seen per lpf (None-Few); Squamous Epithelial Cell,Urine Many per lpf (None-Few)
[2017-01-09 13:13] LABS: Amphetamine Screen,Urine Negative ng/mL (Cutoff=1000); Barbiturate Screen,Urine Negative ng/mL (Cutoff=200); Benzodiazepines Screen,Urine Negative ng/mL (Cutoff=200); Cannabinoid Screen,Urine Negative ng/mL (Cutoff = 50); Cocaine Screen,Urine Negative ng/mL (Cutoff= 300); Opiate Screen,Urine Negative ng/mL (Cutoff=300); Phencyclidine Screen,Urine Negative ng/mL (Cutoff=25)
[2017-01-09] MEDS ORDERED: hydrOXYzine pamoate 25 MG CAPSULE PO PRN (16:03)
[2017-01-09] MEDS ORDERED: *HR* LORazepam 1 MG TABLET PO PRN (16:03)
[2017-01-09] MEDS ORDERED: Haloperidol Lactate 5 MG/ML VIAL IM PRN (16:03)
[2017-01-09] MEDS ORDERED: *HR* LORazepam 2 MG/ML VIAL IM PRN (16:03)
[2017-01-09] MEDS ORDERED: MOM Conc 10 ML UD.LIQ PO PRN (16:03)
[2017-01-09] MEDS ORDERED: traZODone 50 MG TABLET PO PRN (16:11)
[2017-01-09] MEDS: *HR* LORazepam 0.5 MG TABLET PO SCH (20:23)
[2017-01-09] MEDS: RisperiDAL 3 MG TABLET PO SCH (20:24)
[2017-01-10] MEDS: *HR* LORazepam 0.5 MG TABLET PO SCH ×2 (08:27→20:28)
[2017-01-10] MEDS: Aspirin Enteric Coated 325 MG Tablet PO SCH (08:27)
[2017-01-10] MEDS: Vitamin B Complex/Vit C/Vit E 1 EACH TABLET PO SCH (08:27)
[2017-01-10] MEDS: RisperiDAL 3 MG TABLET PO SCH ×2 (08:27→20:28)
--- NOTE | 2017-01-10 11:09 | Psychiatry History & Physical ---
Date of Encounter: 01/10/17 Time of Encounter: 11:00 History of Present Illness Patient Stated Chief Complaint: Hearing voices Medicare Admission Attestation: For traditional Medicare patients the provided hospital inpatient services are reasonable and necessary and in the case of services not specified as inpatient -only under 42 CFR 419.22 (n), that they are appropriately provided as inpatient services in accordance 42 CFR 412.3. For Critical Access Hospital the patient may reasonably be expected to be discharged or transferred to a hospital within 96 hours after admission to the Critical Access Hospital. Admitted From: Emergency Dept History of Present Illness: Mr. Miller is a 36 year old male admitted from the emergency room for evaluation of auditory hallucinations and exacerbation of schizophrenia paranoid type. Patient is well known to us and recently discharged from the units with outpatient follow-up and injectable antipsychotic, Risperdal consta. Patient is a poor historian and unable to give us circumstances of this admission and the staff is attempting to contact his family to obtain information regarding his recurrence of symptoms after stabilization in the hospital. In the ER patient was noted to be tachycardic and obviously was noncompliant with his medication . Past Med Surg Social Fam HX - Past Medical History Medical history: hyperlipidemia, hypertension, seizures, other - Past Psychiatric History Psychiatric history: Reports: schizophrenia, previous psychiatric hospitalization Past psychiatric history details: Recently discharged from [facility] on December [id number] Family psychiatric history: Unknown Family History of Suicide: Unknown - Past Surgical History Surgical History: appendectomy, arthroscopy - Social History Smoking Status: Current every day smoker Smokeless Tobacco Status: No Alcohol use: heavy Drug use: marijuana - Family History Father Hx Family Cardiac Disorders: Yes Medications & Allergies TraZODone 50 mg PO HS PRN #30 tablet 07/14/16 [Rx] Aspirin [Ecotrin] 325 mg PO DAILY #30 tablet. 12/01/16 [Rx] Lisinopril [Zestril] 5 mg PO DAILY #30 tablet 12/01/16 [Rx] Vitamin B Complex/Vit C/Vit E [Stresstab] 1 tab PO DAILY 12/05/16 [History] Amantadine [Symmetrel] 100 mg PO BID #30 capsule 12/25/16 [Rx] Benztropine [Cogentin] 0.5 mg PO BID #30 tablet 12/25/16 [Rx] Haloperidol [Haldol] 5 mg PO BID #60 tablet 12/25/16 [Rx] LORazepam [Ativan] 0.5 mg PO BID #30 tablet 12/25/16 [Rx] Propranolol [Inderal] 20 mg PO BID #60 tablet 12/25/16 [Rx] RisperiDONE [RisperDAL] 3 mg PO BID #60 tablet 12/25/16 [Rx] Ciprofloxacin HCl [Cipro] 500 mg PO BID #20 tablet 01/06/17 [Rx] Allergies No Known Allergies Allergy (Verified 11/22/16 20:45) Review of Systems Psychiatric: Reports: auditory hallucinations, other (Tight muscles in his arms) Mental Status Exam Patient orientation: Yes Person, Yes Place Level of alertness: Sedated Patient appearance: Appropriate, Unkempt, Disheveled, Obese Behavior: cooperative, anxious, withdrawn Psychomotor activity: Slowed Eye contact: Minimal Contact Mood description: Anxious Affect description: constricted, blunted, flat Speech pattern: Limited, Garbled, Impoverished Speech volume: Soft/Quiet Thought process: Linear, Goal Oriented Thought content: No Suicidal ideation, No Homicidal ideation, No Overt delusions Perceptual disturbances: Yes Auditory hallucinations, No Visual hallucinations Attention span: Capable of Focused Attention Memory description: Grossly Intact Patient reliability: Reliable Historian Intelligence estimate: Below Average Judgment: Limited Insight: Partial Results - Vital Signs Vital signs: Temp Pulse Resp BP Pulse Ox 98.7 F 124 16 138/102 98 01/10/17 08:58 01/10/17 08:58 01/10/17 08:58 01/10/17 08:58 01/09/17 10:54 - Labs Labs: Laboratory Last Values WBC 12.7 K/mcL (4.3-11.1) H D 01/09/17 11:17 RBC 5.57 M/mcL (4.19-5.50) H 01/09/17 11:17 Hgb 17.4 g/dL (12.9-16.9) H D 01/09/17 11:17 Hct 50.7 % (37.5-50.1) H 01/09/17 11:17 MCV 91.0 fL (83.0-100.0) 01/09/17 11:17 MCH 31.2 pg (28.0-33.3) 01/09/17 11:17 MCHC 34.3 g/dL (31.6-35.5) 01/09/17 11:17 RDW 12.7 % (11.5-14.5) 01/09/17 11:17 Plt Count 355 K/mcL (140-400) 01/09/17 11:17 MPV 10.3 fL (9.4-12.4) 01/09/17 11:17 Immature Gran % 0.4 % (0-4) 01/09/17 11:17 Seg Neutrophils % 72.8 % 01/09/17 11:17 Lymphocytes % 15.9 % 01/09/17 11:17 Monocytes % 10.0 % 01/09/17 11:17 Eosinophils % 0.4 % 01/09/17 11:17 Basophils % 0.5 % 01/09/17 11:17 Neutrophils # 9.3 K/mcL (1.6-8.9) H 01/09/17 11:17 Lymphocytes # 2.0 K/mcL (0.6-4.6) 01/09/17 11:17 Monocytes # 1.3 K/mcL (0.0-1.3) 01/09/17 11:17 Eosinophils # 0.1 K/mcL (0.0-0.6) 01/09/17 11:17 Basophils # 0.1 K/mcL (0.0-0.2) 01/09/17 11:17 Sodium 142 mEq/L (136-145) 01/09/17 11:17 Potassium 3.8 mEq/L (3.5-4.5) 01/09/17 11:17 Chloride 107 mEq/L (98-109) 01/09/17 11:17 Carbon Dioxide 19 mEq/L (19-29) 01/09/17 11:17 BUN 16 mg/dL (8-26) 01/09/17 11:17 Creatinine 1.00 mg/dL (0.72-1.25) 01/09/17 11:17 Est GFR ( Amer) > 60 (> 60) 01/09/17 11:17 Est GFR (Non-Af Amer) > 60 (> 60) 01/09/17 11:17 BUN/Creatinine Ratio 16 (6-26) 01/09/17 11:17 Glucose 115 mg/dL (70-99) H 01/09/17 11:17 Calculated Osmolality 296 (280-300) 01/09/17 11:17 Calcium 10.3 mg/dL (8.6-10.8) 01/09/17 11:17 Urine Color Dark Yellow (Yellow) 01/09/17 13:00 Urine Clarity Clear (Clear) 01/09/17 13:00 Urine pH 6.0 pH Units (5.0-8.0) 01/09/17 13:00 Ur Specific [place] > 1.030 (1.010-1.025) H 01/09/17 13:00 Urine Protein 30 mg/dL (Neg-Trace) H 01/09/17 13:00 Urine Glucose (UA) Normal mg/dL (Normal) 01/09/17 13:00 Urine Ketones 40 mg/dL (Negative) H 01/09/17 13:00 Urine Blood Negative (Negative) 01/09/17 13:00 Urine Nitrite Negative (Negative) 01/09/17 13:00 Urine Bilirubin Small (Negative) H 01/09/17 13:00 Urine Urobilinogen Normal mg/dL (Normal) 01/09/17 13:00 Ur Leukocyte Esterase Negative (Negative) 01/09/17 13:00 Urine Microscopic RBC 3-5 per hpf (0-3) H 01/09/17 13:00 Urine Microscopic WBC 3-5 per hpf (0-3) H 01/09/17 13:00 Ur Squamous Epith Cells Many per lpf (None-Few) H 01/09/17 13:00 Urine Bacteria None Seen per hpf (None-Few) 01/09/17 13:00 Hyaline Casts None Seen per lpf (None-Few) 01/09/17 13:00 Salicylates < 5.0 mg/dL (15-30) L 01/09/17 11:17 Urine Opiates Screen Negative ng/mL (Zpchxn=038) 01/09/17 13:00 Acetaminophen < 1.0 mcg/mL (10-30) L 01/09/17 11:17 Ur Barbiturates Screen Negative ng/mL (Yiquxb=090) 01/09/17 13:00 Ur Phencyclidine Scrn Negative ng/mL (Cutoff=25) 01/09/17 13:00 Ur Amphetamines Screen Negative ng/mL (Frkitl=8406) 01/09/17 13:00 U Benzodiazepines Scrn Negative ng/mL (Sikwzy=360) 01/09/17 13:00 Urine Cocaine Screen Negative ng/mL (Cutoff= 300) 01/09/17 13:00 U Marijuana (THC) Screen Negative ng/mL (Cutoff = 50) 01/09/17 13:00 Ethyl Alcohol < 10 mg/dL (0-10) 01/09/17 11:17 Assessment and Plan (1) Schizophrenia, paranoid, chronic with acute exacerbation Current visit: Yes Status: Acute Plan: Admit inpatient for safety and stabilization, Close observation, Suicide Precautions per unit protocol, Encourage participation in unit milieu, Group Therapy, Monitor sleep, Monitor appetite Additional Plan: 1. Will hold Haldol 2. Give Cogentin 2 mg by mouth 3. Check vital signs every 2 hours for today 4. Continue 2 mg of Ativan by mouth 5. Order labs electrolytes. Risks, benefits, side effects, alternatives discussed w/pt: Yes Patient agreeable to treatment: Yes
[2017-01-10] MEDS ORDERED: *HR* LORazepam 1 MG TABLET PO ONE (11:21)
[2017-01-10 14:38] LABS: Potassium 3.9 mEq/L (3.5-4.5)
[2017-01-10] MEDS ORDERED: Ziprasidone 20 MG CAPSULE PO PRN (15:01)
[2017-01-10] MEDS ORDERED: Ziprasidone injection 20 MG/ML VIAL IM PRN (15:10)
[2017-01-11] MEDS: Aspirin Enteric Coated 325 MG Tablet PO SCH (08:46)
[2017-01-11] MEDS: Vitamin B Complex/Vit C/Vit E 1 EACH TABLET PO SCH (08:46)
[2017-01-11] MEDS: *HR* LORazepam 0.5 MG TABLET PO SCH (08:46)
[2017-01-11] MEDS: RisperiDAL 3 MG TABLET PO SCH (09:57)
--- NOTE | 2017-01-11 15:01 | Psychiatry Progress Note ---
Date of Encounter: 01/11/17 Time of Encounter: 15:00 Subjective Interval history: Pt reports he is feeling stiff all over his body. 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 Has been confused periodically over the last few days. Can move his neck in a very restricted range of movement. Reprts that the voices are telling him "Dont kill me". Review of Systems Musculoskeletal: Reports: other (moderate degree of cogwheel rigidity in both arms noticed.) Psychiatric: Reports: auditory hallucinations, other (Tight muscles in his arms) Objective: Exam Patient orientation: Yes Person, Yes Place Level of alertness: Alert Patient appearance: Unkempt, Disheveled, Malodorous, Obese Behavior: cooperative, withdrawn Psychomotor activity: Slowed Eye contact: Minimal Contact Mood description: Depressed Patient description of mood: Pt admits to feeling down. Affect description: constricted, blunted, flat, dysphoric Speech pattern: Limited, Garbled, Impoverished Speech volume: Soft/Quiet Thought process: Linear, Goal Oriented Thought content: No Suicidal ideation, No Homicidal ideation, No Overt delusions , Yes Paranoid delusion Perceptual disturbances: Yes Auditory hallucinations, No Visual hallucinations Judgment: Limited Insight: Partial Results - Vital Signs Vital Signs: Temp Pulse Resp BP Pulse Ox 98.0 F 77 16 110/71 98 01/11/17 09:25 01/11/17 09:25 01/11/17 09:25 01/11/17 09:25 01/09/17 10:54 Assessment and Plan (1) Psychosis Current visit: No Status: Acute Plan: Continue hospitalization, Close observation, Monitor sleep, Family/ Supportive other meeting Risks, benefits, side effects, alternatives discussed w/pt: Yes Patient agreeable to treatment: Yes Qualifiers: Psychosis type: schizophrenia Schizophrenia type: disorganized schizophrenia Qualified Code(s): F20.1 - Disorganized schizophrenia (2) Schizophrenia Current visit: No Status: Chronic Plan: Continue hospitalization Additional Plan: D/C all antipsychotics due to emergence of generalized rigidity and tachycardia. Will use Lorazepam 2 mg tid to provide relief from rigidity. May have to go back to Zyprexa after the rigidity is resolved. Qualifiers: Schizophrenia type: paranoid schizophrenia Qualified Code(s): F20.0 - Paranoid schizophrenia Consult Discharge Plan - Plan Referrals: NO,PCP [Primary Care Provider] -
[2017-01-11] MEDS ORDERED: *HR* LORazepam 1 MG TABLET PO ONE (15:05)
[2017-01-11] MEDS ORDERED: Ziprasidone injection 20 MG/ML VIAL IM PRN (15:53)
[2017-01-11] MEDS ORDERED: Ziprasidone 20 MG CAPSULE PO PRN (15:55)
[2017-01-11] MEDS: Lactobacillus 1 EACH CAP.SPRINK PO SCH (16:40)
[2017-01-11] MEDS: *HR* LORazepam 1 MG TABLET PO SCH (22:10)
[2017-01-12] MEDS: Ibuprofen 400 MG TABLET PO PRN ×2 (06:57→16:59)
[2017-01-12] MEDS: Vitamin B Complex/Vit C/Vit E 1 EACH TABLET PO SCH (08:29)
[2017-01-12] MEDS: *HR* LORazepam 1 MG TABLET PO SCH ×3 (08:30→21:38)
[2017-01-12] MEDS: Aspirin Enteric Coated 325 MG Tablet PO SCH (08:30)
[2017-01-12] MEDS: Lactobacillus 1 EACH CAP.SPRINK PO SCH (08:30)
[2017-01-12] MEDS: Mag Hydrox/Al Hydrox/Simeth 30 ML UDC PO PRN (15:06)
--- NOTE | 2017-01-12 18:03 | Psychiatry Progress Note ---
Date of Encounter: 01/12/17 Time of Encounter: 18:00 Subjective Interval history: Pt reports that he is not having as much rigidity in his body today. Claims to have not heard any voices today . Does not want to be back on Risperdal Consta due to the extreme rigidity. Review of Systems Psychiatric: Reports: abnormal sleep pattern, auditory hallucinations, other ( Tight muscles in his arms) Objective: Exam Patient orientation: Yes Person, Yes Place Level of alertness: Alert Patient appearance: Unkempt, Disheveled, Malodorous, Obese Behavior: cooperative, withdrawn Psychomotor activity: Slowed Eye contact: Minimal Contact Mood description: Depressed Affect description: constricted, blunted, flat, dysphoric Speech pattern: Limited, Garbled, Impoverished Speech volume: Soft/Quiet Thought process: Linear, Goal Oriented Thought content: No Suicidal ideation, No Homicidal ideation, No Overt delusions , Yes Paranoid delusion Perceptual disturbances: Yes Auditory hallucinations, No Visual hallucinations Judgment: Limited Insight: Partial Results - Vital Signs Vital Signs: Temp Pulse Resp BP Pulse Ox 98.8 F 96 18 109/76 98 01/12/17 16:00 01/12/17 16:00 01/12/17 16:00 01/12/17 16:00 01/09/17 10:54 Assessment and Plan (1) Psychosis Current visit: No Status: Acute Plan: Continue hospitalization, Close observation, Monitor sleep, Family/ Supportive other meeting Risks, benefits, side effects, alternatives discussed w/pt: Yes (Will gradually taper down Ativan) Patient agreeable to treatment: Yes Qualifiers: Psychosis type: schizophrenia Schizophrenia type: disorganized schizophrenia Qualified Code(s): F20.1 - Disorganized schizophrenia (2) Schizophrenia Current visit: No Status: Chronic Plan: Continue hospitalization Qualifiers: Schizophrenia type: paranoid schizophrenia Qualified Code(s): F20.0 - Paranoid schizophrenia Consult Discharge Plan - Plan Referrals: [facility] [Outside] - 02/09/17 2:30 pm (The above appointment is with Yaritza Ortiz. You are going into respite at [facility] on discharge from the hospital. While there you will be seen daily by the clinic counselors and trimming caser. You will also see your assigned counselor, Jill hebert there.)
[2017-01-13] MEDS: Ibuprofen 400 MG TABLET PO PRN ×2 (06:44→17:24)
[2017-01-13] MEDS: Vitamin B Complex/Vit C/Vit E 1 EACH TABLET PO SCH (09:00)
[2017-01-13] MEDS: Lactobacillus 1 EACH CAP.SPRINK PO SCH (09:00)
[2017-01-13] MEDS: Aspirin Enteric Coated 325 MG Tablet PO SCH (09:01)
[2017-01-13] MEDS: *HR* LORazepam 1 MG TABLET PO SCH ×2 (09:01→15:56)
--- NOTE | 2017-01-13 11:19 | Dermatology Consult Note ---
Date of Encounter: 01/13/17 Time of Encounter: 11:00 History of Present Illness Reason for Consult: Rash on face History of Present Illness: Troy coulter is a 36-year-old male with a history of psychiatric illness. He presents with a rash to his face for about a year. Caregivers feel that is progressively getting worse. He reports mild to moderate intermittent itching and burning. He denies treatment. Review of Systems General/Constitutional: Patient denies fevers, chills, nor recent unintended weight loss, night sweats, no change in appetite or malaise. Hematologic: Patient denies new or enlarging lumps or bumps. Skin: Patient denies new or changing moles, or rash other than what is mentioned above. Past Med Surg Social Fam HX - Past Medical History Medical history: hyperlipidemia, hypertension, seizures, other Psychiatric history: schizophrenia, previous psychiatric hospitalization - Past Surgical History Surgical History: appendectomy, arthroscopy - Social History Smoking Status: Current every day smoker Smokeless Tobacco Status: No Alcohol use: heavy Drug use: marijuana - Family History Father Hx Family Cardiac Disorders: Yes Medications and Allergies TraZODone 50 mg PO HS PRN #30 tablet 07/14/16 [Rx] Aspirin [Ecotrin] 325 mg PO DAILY #30 tablet. 12/01/16 [Rx] Lisinopril [Zestril] 5 mg PO DAILY #30 tablet 12/01/16 [Rx] Vitamin B Complex/Vit C/Vit E [Stresstab] 1 tab PO DAILY 12/05/16 [History] Amantadine [Symmetrel] 100 mg PO BID #30 capsule 12/25/16 [Rx] LORazepam [Ativan] 0.5 mg PO BID #30 tablet 12/25/16 [Rx] Propranolol [Inderal] 20 mg PO BID #60 tablet 12/25/16 [Rx] Ciprofloxacin HCl [Cipro] 500 mg PO BID #20 tablet 01/06/17 [Rx] Ketoconazole Shampoo [Nizoral Shampoo] 1 appl TP 2XW bottle 01/21/17 [Rx] Oxymetazoline [Afrin] 1 spray NS Q12HR PRN #0 bottle 01/21/17 [Rx] Allergies No Known Allergies Allergy (Verified 11/22/16 20:45) Examination Vital Signs: Temp Pulse Resp BP Pulse Ox 98 F 88 18 124/86 98 01/13/17 08:00 01/13/17 08:00 01/13/17 08:00 01/13/17 08:00 01/09/17 10:54 The patient appears alert, oriented X 3, in no acute distress, healthy-appearing , normal mood.A detailed skin examination of sites including; scalp, head, neck , face, conjunctiva, lids, lips, back, chest/breast/axilla, abdomen, bilateral upper extremities including hands/digits/ fingernails, bilateral lower extremities including feet,/digits/toenails, groin/ buttock,, was completed and found to be normal except [place]-red erythematous, well-defined, thick, dry plaques with adherent white- silvery scale involving scalp, ears, central face, lerner area, right elbow>> left elbow no nail pitting noted on examination General Examination: The patient appears alert, oriented X3, in no acute distress, healthy-appearing , normal mood. A detailed skin examination of sites including: scalp, head, neck , face, conjunctive, lids, lips, back, chest/breast/axilla, abdomen, bilateral upper extremities including hands/digits/fingernails, bilateral lower extremities including feet/digits/toenails, genital/groin/buttock, lymph nodes, was completed and found to be normal except: - Assessment and Plan (1) Psoriasis Status: Acute Sebopsoriasis: Recommend salicylic acid shampoo 6 % twice weekly and ketoconazole 2 % SHAMPOO TWICE WEEKLY recommend toical fluocinonide acetondie 0.05% solution to scalp, ears daily ( leave on) , apply to lerner area twice weekly as needed for rash Procedure: Dermatology Date of procedure: 01/13/17 Procedure: no procedure performed Consult Discharge Plan - Plan Instructions: Depression (DC), Schizophrenia (DC) Referrals: [facility] [Outside] - 02/09/17 2:30 pm (The above appointment is with Yaritza Ortiz. You are going into respite at [facility] on discharge from the hospital. While there you will be seen daily by the clinic counselors and case management director. You will also see your assigned counselor, Jill hebert there.)
--- NOTE | 2017-01-13 15:36 | Psychiatry Progress Note ---
Date of Encounter: 01/13/17 Time of Encounter: 15:20 Subjective Interval history: Pt reports that he still has some tightness in his muscles though much better and he can move around. He denies having any voices. Continues to have issues with flaky skin lesions. Consents to start meds recommended by Derm consult. Review of Systems Psychiatric: Reports: depression, abnormal sleep pattern, auditory hallucinations, other (Tight muscles in his arms) Objective: Exam Patient orientation: Yes Person, Yes Place Level of alertness: Alert Patient appearance: Unkempt, Disheveled, Malodorous, Obese Behavior: cooperative, withdrawn Psychomotor activity: Slowed Eye contact: Minimal Contact Mood description: Depressed Affect description: constricted, blunted, flat, dysphoric Speech pattern: Limited, Garbled, Impoverished Speech volume: Soft/Quiet Thought process: Linear, Goal Oriented Thought content: No Suicidal ideation, No Homicidal ideation, No Overt delusions , Yes Paranoid delusion Perceptual disturbances: Yes Auditory hallucinations, No Visual hallucinations Judgment: Limited Insight: Partial Results - Vital Signs Vital Signs: Temp Pulse Resp BP Pulse Ox 97.9 F 77 18 102/60 98 01/13/17 12:00 01/13/17 12:00 01/13/17 12:00 01/13/17 12:00 01/09/17 10:54 Assessment and Plan (1) Psychosis Current visit: No Status: Acute Plan: Continue hospitalization, Close observation, Monitor sleep, Family/ Supportive other meeting Risks, benefits, side effects, alternatives discussed w/pt: Yes (Will gradually taper down Ativan) Patient agreeable to treatment: Yes Qualifiers: Psychosis type: schizophrenia Schizophrenia type: disorganized schizophrenia Qualified Code(s): F20.1 - Disorganized schizophrenia (2) Schizophrenia Current visit: No Status: Chronic Plan: Continue hospitalization Additional Plan: D/C all antipsychotics due to emergence of generalized rigidity and tachycardia. Will use Lorazepam 2 mg tid to provide relief from rigidity. May have to go back to Zyprexa after the rigidity is resolved. Will start zyprexa today at low dosage. Qualifiers: Schizophrenia type: paranoid schizophrenia Qualified Code(s): F20.0 - Paranoid schizophrenia Consult Discharge Plan - Plan Referrals: [facility] [Outside] - 02/09/17 2:30 pm (The above appointment is with Yaritza Ortiz. You are going into respite at [facility] on discharge from the hospital. While there you will be seen daily by the clinic counselors and correctional case manager. You will also see your assigned counselor, Jill hebert there.)
[2017-01-13] MEDS: Ketoconazole Shampoo 120 ML BOTTLE TP SCH (17:24)
[2017-01-13] MEDS ORDERED: OLANZapine 5 MG TAB.RAPDIS PO SCH (21:00)
[2017-01-13] MEDS: *HR* LORazepam 0.5 MG TABLET PO SCH (21:15)
[2017-01-14] MEDS: Vitamin B Complex/Vit C/Vit E 1 EACH TABLET PO SCH (08:31)
[2017-01-14] MEDS: Lactobacillus 1 EACH CAP.SPRINK PO SCH (08:32)
[2017-01-14] MEDS: *HR* LORazepam 0.5 MG TABLET PO SCH ×3 (08:32→20:49)
[2017-01-14] MEDS: Aspirin Enteric Coated 325 MG Tablet PO SCH (08:32)
[2017-01-14] MEDS: Ketoconazole Shampoo 120 ML BOTTLE TP SCH (08:33)
[2017-01-14 14:08] LABS: Basophils # 0.1 K/mcL (0.0-0.2); Basophils % 0.6 %; Eosinophils # 0.3 K/mcL (0.0-0.6); Eosinophils % 2.5 %; Hematocrit 47.5 % (37.5-50.1); Hemoglobin 15.9 g/dL (12.9-16.9); Immature Granulocytes % 0.2 % (0-4); Lymphocytes # 2.4 K/mcL (0.6-4.6); Lymphocytes % 22.8 %; Mean Corpuscular HGB Conc 33.5 g/dL (31.6-35.5); Mean Corpuscular Hemoglobin 30.9 pg (28.0-33.3); Mean Corpuscular Volume 92.4 fL (83.0-100.0); Mean Platelet Volume 10.9 fL (9.4-12.4); Monocytes # 1.1 K/mcL (0.0-1.3); Monocytes % 9.9 %; Neutrophils # 6.8 K/mcL (1.6-8.9); Platelet Count 224 K/mcL (140-400); Red Blood Count 5.14 M/mcL (4.19-5.50); Red Cell Distribution Width 12.4 % (11.5-14.5)
[2017-01-14 14:19] LABS: BUN/Creatinine Ratio 14 (6-26); Blood Urea Nitrogen 16 mg/dL (8-26); Calcium 9.9 mg/dL (8.6-10.8); Carbon Dioxide 25 mEq/L (19-29); Chloride 105 mEq/L (98-109); Glucose 96 mg/dL (70-99); Osmolality,Calculated 291 (280-300); Potassium 4.2 mEq/L (3.5-4.5); Sodium 140 mEq/L (136-145); eGFR For African Americans > 60 (> 60); eGFR For Non-African Americans > 60 (> 60)
[2017-01-14 14:20] LABS: Albumin 3.7 g/dL (3.5-5.0); Bilirubin,Direct 0.4 mg/dL (0.0-0.5); Bilirubin,Indirect 0.4 mg/dL (0.0-1.2); Bilirubin,Total 0.8 mg/dL (0.2-1.2); Globulin 3.6 g/dL (2.4-3.5); Total Protein 7.3 g/dL (6.0-8.3)
--- NOTE | 2017-01-14 16:16 | Psychiatry Progress Note ---
Date of Encounter: 01/14/17 Time of Encounter: 16:10 Subjective Interval history: Pt reports he has not been hearing any voices. Does not feel the rigidity returning but has gen weakness. He was informed that Zyprexa will be on hold due to his temp going up again to 99. Review of Systems Psychiatric: Reports: depression, abnormal sleep pattern, auditory hallucinations, other (Tight muscles in his arms) Objective: Exam Patient orientation: Yes Person, Yes Place Level of alertness: Alert Patient appearance: Unkempt, Disheveled, Malodorous, Obese Behavior: cooperative, withdrawn Psychomotor activity: Slowed Eye contact: Minimal Contact Mood description: Depressed Affect description: constricted, blunted, flat, dysphoric Speech pattern: Limited, Garbled, Impoverished Speech volume: Soft/Quiet Thought process: Linear, Goal Oriented Thought content: No Suicidal ideation, No Homicidal ideation, No Overt delusions , Yes Paranoid delusion Perceptual disturbances: Yes Auditory hallucinations, No Visual hallucinations Judgment: Limited Insight: Partial Results - Vital Signs Vital Signs: Temp Pulse Resp BP Pulse Ox 99 F 80 18 106/69 98 01/14/17 13:00 01/14/17 13:00 01/14/17 13:00 01/14/17 13:00 01/14/17 05:45 - Labs Labs: Laboratory Results - last 24 hr 01/14/17 01/14/17 01/14/17 13:59 13:59 13:59 WBC 10.7 RBC 5.14 Hgb 15.9 D Hct 47.5 MCV 92.4 MCH 30.9 MCHC 33.5 RDW 12.4 Plt Count 224 MPV 10.9 Immature Gran % 0.2 Seg Neutrophils % 64.0 Lymphocytes % 22.8 Monocytes % 9.9 Eosinophils % 2.5 Basophils % 0.6 Neutrophils # 6.8 Lymphocytes # 2.4 Monocytes # 1.1 Eosinophils # 0.3 Basophils # 0.1 Sodium 140 Potassium 4.2 Chloride 105 Carbon Dioxide 25 BUN 16 Creatinine 1.17 Est GFR ( Amer) > 60 Est GFR (Non-Af Amer) > 60 BUN/Creatinine Ratio 14 Glucose 96 Calculated Osmolality 291 Calcium 9.9 Total Bilirubin 0.8 Direct Bilirubin 0.4 Indirect Bilirubin 0.4 AST 21 ALT 59 H Alkaline Phosphatase 88 Creatine Kinase 46 Serum Total Protein 7.3 Albumin 3.7 Globulin 3.6 H Albumin/Globulin Ratio 1.0 L Assessment and Plan (1) Psychosis Current visit: No Status: Acute Plan: Continue hospitalization, Close observation, Monitor sleep, Family/ Supportive other meeting Risks, benefits, side effects, alternatives discussed w/pt: Yes (Will gradually taper down Ativan) Patient agreeable to treatment: Yes Qualifiers: Psychosis type: schizophrenia Schizophrenia type: disorganized schizophrenia Qualified Code(s): F20.1 - Disorganized schizophrenia (2) Schizophrenia Current visit: No Status: Chronic Plan: Continue hospitalization Risks, benefits, side effects, alternatives discussed w/pt: Yes (With hold Zyprexa due to temp increase.Liberalize fluids.) Qualifiers: Schizophrenia type: paranoid schizophrenia Qualified Code(s): F20.0 - Paranoid schizophrenia Consult Discharge Plan - Plan Referrals: [facility] [Outside] - 02/09/17 2:30 pm (The above appointment is with Yaritza Ortiz. You are going into respite at [facility] on discharge from the hospital. While there you will be seen daily by the clinic counselors and nurse outreach case manager. You will also see your assigned counselor, Jill hebert there.)
[2017-01-15] MEDS: Lactobacillus 1 EACH CAP.SPRINK PO SCH (08:16)
[2017-01-15] MEDS: Vitamin B Complex/Vit C/Vit E 1 EACH TABLET PO SCH (08:16)
[2017-01-15] MEDS: *HR* LORazepam 0.5 MG TABLET PO SCH ×3 (08:16→20:09)
[2017-01-15] MEDS: Aspirin Enteric Coated 325 MG Tablet PO SCH (08:16)
[2017-01-15] MEDS: Ibuprofen 400 MG TABLET PO PRN (15:04)
--- NOTE | 2017-01-15 15:14 | Psychiatry Progress Note ---
Date of Encounter: 01/15/17 Time of Encounter: 15:10 Subjective Interval history: Pt reports he is feeling better but still has the stiffness in his muscles all over. He denies having any voices and slept OK last night. Review of Systems Psychiatric: Reports: depression, abnormal sleep pattern, auditory hallucinations, difficulty concentrating, other (Tight muscles in his arms) Objective: Exam Patient orientation: Yes Person, Yes Place Level of alertness: Alert Patient appearance: Unkempt, Disheveled, Malodorous, Obese Behavior: cooperative, withdrawn Psychomotor activity: Slowed Eye contact: Minimal Contact Mood description: Depressed Affect description: constricted, blunted, flat, dysphoric Speech pattern: Limited, Garbled, Impoverished Speech volume: Soft/Quiet Thought process: Linear, Goal Oriented Thought content: No Suicidal ideation, No Homicidal ideation, No Overt delusions , Yes Paranoid delusion Perceptual disturbances: Yes Auditory hallucinations, No Visual hallucinations Judgment: Limited Insight: Partial Results - Vital Signs Vital Signs: Temp Pulse Resp BP Pulse Ox 97.8 F 78 16 94/60 98 01/15/17 13:00 01/15/17 13:00 01/15/17 13:00 01/15/17 13:00 01/14/17 05:45 Assessment and Plan (1) Psychosis Current visit: No Status: Acute Plan: Continue hospitalization, Close observation, Monitor sleep, Family/ Supportive other meeting Risks, benefits, side effects, alternatives discussed w/pt: Yes (Will gradually taper down Ativan) Patient agreeable to treatment: Yes Qualifiers: Psychosis type: schizophrenia Schizophrenia type: disorganized schizophrenia Qualified Code(s): F20.1 - Disorganized schizophrenia (2) Schizophrenia Current visit: No Status: Chronic Plan: Continue hospitalization Risks, benefits, side effects, alternatives discussed w/pt: Yes (With hold Zyprexa due to temp increase.Liberalize fluids.) Qualifiers: Schizophrenia type: paranoid schizophrenia Qualified Code(s): F20.0 - Paranoid schizophrenia Consult Discharge Plan - Plan Referrals: [facility] [Outside] - 02/09/17 2:30 pm (The above appointment is with Yaritza Ortiz. You are going into respite at [facility] on discharge from the hospital. While there you will be seen daily by the clinic counselors and major case detective. You will also see your assigned counselor, Jill hebert there.)
[2017-01-16] MEDS: Lactobacillus 1 EACH CAP.SPRINK PO SCH (08:19)
[2017-01-16] MEDS: Vitamin B Complex/Vit C/Vit E 1 EACH TABLET PO SCH (08:19)
[2017-01-16] MEDS: *HR* LORazepam 0.5 MG TABLET PO SCH ×3 (08:20→21:02)
[2017-01-16] MEDS: Aspirin Enteric Coated 325 MG Tablet PO SCH (08:21)
[2017-01-16] MEDS: Ibuprofen 400 MG TABLET PO PRN (12:47)
[2017-01-16] MEDS: Ketoconazole Shampoo 120 ML BOTTLE TP SCH (12:48)
--- NOTE | 2017-01-16 21:17 | Psychiatry Progress Note ---
Date of Encounter: 01/16/17 Time of Encounter: 21:15 Subjective Interval history: Pt denies having any hallucinations or paranoia. He reports gradual decrease in rigidity. He has had some tachycardia which has been asymptomatic. Review of Systems Psychiatric: Reports: depression, abnormal sleep pattern, auditory hallucinations, difficulty concentrating, other (Tight muscles in his arms) Objective: Exam Patient orientation: Yes Person, Yes Place Level of alertness: Alert Patient appearance: Unkempt, Disheveled, Malodorous, Obese Behavior: cooperative, withdrawn Psychomotor activity: Slowed Eye contact: Minimal Contact Mood description: Depressed Affect description: constricted, blunted, flat, dysphoric Speech pattern: Limited, Garbled, Impoverished Speech volume: Soft/Quiet Thought process: Linear, Goal Oriented Thought content: No Suicidal ideation, No Homicidal ideation, No Overt delusions , Yes Paranoid delusion Perceptual disturbances: Yes Auditory hallucinations, No Visual hallucinations Judgment: Limited Insight: Partial Results - Vital Signs Vital Signs: Temp Pulse Resp BP Pulse Ox 98 F 114 16 109/77 98 01/16/17 17:00 01/16/17 17:00 01/16/17 17:00 01/16/17 17:00 01/14/17 05:45 Assessment and Plan (1) Psychosis Current visit: No Status: Acute Plan: Continue hospitalization, Close observation, Monitor sleep, Family/ Supportive other meeting Risks, benefits, side effects, alternatives discussed w/pt: Yes (Will gradually taper down Ativan) Patient agreeable to treatment: Yes Qualifiers: Psychosis type: schizophrenia Schizophrenia type: disorganized schizophrenia Qualified Code(s): F20.1 - Disorganized schizophrenia (2) Schizophrenia Current visit: No Status: Chronic Plan: Continue hospitalization Risks, benefits, side effects, alternatives discussed w/pt: Yes (With hold Zyprexa due to temp increase.Liberalize fluids.) Qualifiers: Schizophrenia type: paranoid schizophrenia Qualified Code(s): F20.0 - Paranoid schizophrenia Consult Discharge Plan - Plan Referrals: [facility] [Outside] - 02/09/17 2:30 pm (The above appointment is with Yaritza Ortiz. You are going into respite at [facility] on discharge from the hospital. While there you will be seen daily by the clinic counselors and heel caser. You will also see your assigned counselor, Jill hebert there.)
[2017-01-17] MEDS: traZODone 50 MG TABLET PO PRN ×2 (04:04→20:33)
[2017-01-17] MEDS: Mag Hydrox/Al Hydrox/Simeth 30 ML UDC PO PRN (04:04)
[2017-01-17] MEDS: Vitamin B Complex/Vit C/Vit E 1 EACH TABLET PO SCH (08:24)
[2017-01-17] MEDS: Lactobacillus 1 EACH CAP.SPRINK PO SCH (08:24)
[2017-01-17] MEDS: Aspirin Enteric Coated 325 MG Tablet PO SCH (08:24)
[2017-01-17] MEDS: *HR* LORazepam 0.5 MG TABLET PO SCH ×3 (08:24→20:33)
[2017-01-17] MEDS: Ibuprofen 400 MG TABLET PO PRN ×2 (09:23→19:29)
--- NOTE | 2017-01-17 13:26 | Psychiatry Progress Note ---
Date of Encounter: 01/17/17 Time of Encounter: 13:25 Subjective Interval history: Reports the rigidity continiues to gradually improve. Still has not had any halucinations. Does not feel paranoid either. Review of Systems Psychiatric: Reports: depression, abnormal sleep pattern, auditory hallucinations, difficulty concentrating, other (Tight muscles in his arms) Objective: Exam Patient orientation: Yes Person, Yes Place Level of alertness: Alert Patient appearance: Unkempt, Disheveled, Malodorous, Obese Behavior: cooperative, withdrawn Psychomotor activity: Slowed Eye contact: Minimal Contact Mood description: Depressed Affect description: constricted, blunted, flat, dysphoric Speech pattern: Limited, Garbled, Impoverished Speech volume: Soft/Quiet Thought process: Linear, Goal Oriented Thought content: No Suicidal ideation, No Homicidal ideation, No Overt delusions , Yes Paranoid delusion Perceptual disturbances: Yes Auditory hallucinations, No Visual hallucinations Judgment: Limited Insight: Partial Results - Vital Signs Vital Signs: Temp Pulse Resp BP Pulse Ox 98.5 F 98 16 122/77 98 01/17/17 13:00 01/17/17 13:00 01/17/17 13:00 01/17/17 13:00 01/14/17 05:45 - Labs Labs: Laboratory Results - last 24 hr 01/14/17 13:59 Myoglobin 50 Assessment and Plan (1) Psychosis Current visit: No Status: Acute Plan: Continue hospitalization, Close observation, Monitor sleep, Family/ Supportive other meeting Risks, benefits, side effects, alternatives discussed w/pt: Yes (Will gradually taper down Ativan) Patient agreeable to treatment: Yes Qualifiers: Psychosis type: schizophrenia Schizophrenia type: disorganized schizophrenia Qualified Code(s): F20.1 - Disorganized schizophrenia (2) Schizophrenia Current visit: No Status: Chronic Plan: Continue hospitalization Risks, benefits, side effects, alternatives discussed w/pt: Yes (With hold Zyprexa due to temp increase.Liberalize fluids.) Qualifiers: Schizophrenia type: paranoid schizophrenia Qualified Code(s): F20.0 - Paranoid schizophrenia Consult Discharge Plan - Plan Referrals: [facility] [Outside] - 02/09/17 2:30 pm (The above appointment is with Yaritza Ortiz. You are going into respite at [facility] on discharge from the hospital. While there you will be seen daily by the clinic counselors and machine adjuster leader case trim. You will also see your assigned counselor, Jill hebert there.)
[2017-01-18] MEDS: Lactobacillus 1 EACH CAP.SPRINK PO SCH (09:05)
[2017-01-18] MEDS: *HR* LORazepam 0.5 MG TABLET PO SCH ×3 (09:05→20:02)
[2017-01-18] MEDS: Aspirin Enteric Coated 325 MG Tablet PO SCH (09:05)
[2017-01-18] MEDS: Vitamin B Complex/Vit C/Vit E 1 EACH TABLET PO SCH (09:06)
[2017-01-18] MEDS: Ibuprofen 400 MG TABLET PO PRN (09:06)
[2017-01-18] MEDS: Ketoconazole Shampoo 120 ML BOTTLE TP SCH (09:07)
--- NOTE | 2017-01-18 15:51 | Psychiatry Progress Note ---
Date of Encounter: 01/18/17 Time of Encounter: 15:30 Subjective Interval history: Patient is here for follow-up. He is off antipsychotics due to muscle stiffness. Staff report he is improving and not showing rigidity and ambulating without any stiffness. He is also interacting with patients and staff. He denies any problem with sleep and admits to binge drinking alcohol prior to admission. 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 Review of Systems Psychiatric: Reports: depression, abnormal sleep pattern, auditory hallucinations, difficulty concentrating, other (Tight muscles in his arms) Objective: Exam Patient orientation: Yes Person, Yes Place Level of alertness: Alert Patient appearance: Unkempt, Disheveled, Malodorous, Obese Behavior: cooperative, withdrawn Psychomotor activity: Slowed Eye contact: Minimal Contact Mood description: Depressed Affect description: constricted, blunted, flat Speech pattern: Limited, Impoverished Speech volume: Soft/Quiet Thought process: Linear, Goal Oriented Thought content: No Suicidal ideation, No Homicidal ideation, No Overt delusions , Yes Paranoid delusion Perceptual disturbances: Yes Auditory hallucinations, No Visual hallucinations Judgment: Limited Insight: Partial Results - Vital Signs Vital Signs: Temp Pulse Resp BP Pulse Ox 98.2 F 88 20 121/85 98 01/18/17 12:27 01/18/17 12:27 01/18/17 12:27 01/18/17 12:27 01/14/17 05:45 Assessment and Plan (1) Schizophrenia, paranoid, chronic with acute exacerbation Current visit: Yes Status: Acute Plan: Continue hospitalization, Close observation, Suicide Precautions per unit protocol, Encourage participation in unit milieu, Group Therapy, Monitor sleep, Monitor appetite Risks, benefits, side effects, alternatives discussed w/pt: Yes Patient agreeable to treatment: Yes Consult Discharge Plan - Plan Referrals: [facility] [Outside] - 02/09/17 2:30 pm (The above appointment is with Yaritza Ortiz. You are going into respite at [facility] on discharge from the hospital. While there you will be seen daily by the clinic counselors and caser shoe parts. You will also see your assigned counselor, Jill hebert there.)
[2017-01-18 20:32] LABS: Bilirubin,Urine Negative (Negative); Blood,Urine Negative (Negative); Clarity,Urine Clear (Clear); Color,Urine Yellow (Yellow); Glucose,Urine (UA) Normal (Normal); Ketones,Urine Negative (Negative); Leukocyte Esterase,Urine Negative (Negative); Nitrite,Urine Negative (Negative); Protein,Urine Negative (Neg-Trace); Specific Gravity,Urine 1.015 (1.010-1.025); Urobilinogen,Urine Normal (Normal)
[2017-01-18] MEDS: traZODone 50 MG TABLET PO PRN (20:40)
[2017-01-19] MEDS: Vitamin B Complex/Vit C/Vit E 1 EACH TABLET PO SCH (08:08)
[2017-01-19] MEDS: Lactobacillus 1 EACH CAP.SPRINK PO SCH (08:09)
[2017-01-19] MEDS: *HR* LORazepam 0.5 MG TABLET PO SCH ×3 (08:09→20:48)
[2017-01-19] MEDS: Aspirin Enteric Coated 325 MG Tablet PO SCH (08:09)
[2017-01-19] MEDS: Ibuprofen 400 MG TABLET PO PRN (14:23)
--- NOTE | 2017-01-19 14:49 | Psychiatry Progress Note ---
Date of Encounter: 01/19/17 Time of Encounter: 15:00 Subjective Interval history: Patient is seen for follow-up. Staff report he is ambulating without any problems, denies any muscle aches or stiffness, denies any problem with sleep and denies any auditory hallucinations. His discharge plans are ongoing, with a goal of placing him in a more supervised setting to assure treatment compliance. Review of Systems Psychiatric: Reports: depression, abnormal sleep pattern, auditory hallucinations, difficulty concentrating, other (Tight muscles in his arms) Objective: Exam Patient orientation: Yes Person, Yes Time, Yes Place Level of alertness: Alert Patient appearance: Appropriate, Unkempt Behavior: calm, cooperative, withdrawn Psychomotor activity: Normal Eye contact: Minimal Contact Mood description: Euthymic/stable Affect description: congruent with mood, blunted Speech pattern: Normal rate, Normal rhythm, Normal tone, Limited, Impoverished Speech volume: Normal Thought process: Linear, Goal Oriented Thought content: No Suicidal ideation, No Homicidal ideation, No Overt delusions Perceptual disturbances: No Auditory hallucinations, No Visual hallucinations Judgment: Fair Insight: Partial Results - Vital Signs Vital Signs: Temp Pulse Resp BP Pulse Ox 97.8 F 90 16 114/84 98 01/19/17 09:00 01/19/17 09:00 01/19/17 09:00 01/19/17 09:00 01/14/17 05:45 - Labs Labs: Laboratory Results - last 24 hr 01/18/17 20:15 Urine Color Yellow Urine Clarity Clear Urine pH 6.0 Ur Specific [place] 1.015 Urine Protein Negative Urine Glucose (UA) Normal Urine Ketones Negative Urine Blood Negative Urine Nitrite Negative Urine Bilirubin Negative Urine Urobilinogen Normal Ur Leukocyte Esterase Negative Ur Culture Indicated? NO Assessment and Plan (1) Schizophrenia, paranoid, chronic with acute exacerbation Current visit: Yes Status: Acute Plan: Continue hospitalization, Close observation, Suicide Precautions per unit protocol, Encourage participation in unit milieu, Group Therapy, Monitor sleep, Monitor appetite Risks, benefits, side effects, alternatives discussed w/pt: Yes Patient agreeable to treatment: Yes Consult Discharge Plan - Plan Referrals: [facility] [Outside] - 02/09/17 2:30 pm (The above appointment is with Yaritza Ortiz. You are going into respite at [facility] on discharge from the hospital. While there you will be seen daily by the clinic counselors and window caser. You will also see your assigned counselor, Jill hebert there.)
[2017-01-19] MEDS: Mag Hydrox/Al Hydrox/Simeth 30 ML UDC PO PRN (16:28)
[2017-01-19] MEDS: traZODone 50 MG TABLET PO PRN (20:47)
[2017-01-20] MEDS ORDERED: Oxymetazoline Nasal SPRAY BOTTLE NS PRN (00:57)
[2017-01-20] MEDS: *HR* LORazepam 0.5 MG TABLET PO SCH ×3 (08:33→20:42)
[2017-01-20] MEDS: Vitamin B Complex/Vit C/Vit E 1 EACH TABLET PO SCH (08:33)
[2017-01-20] MEDS: Aspirin Enteric Coated 325 MG Tablet PO SCH (08:34)
[2017-01-20] MEDS: Lactobacillus 1 EACH CAP.SPRINK PO SCH (08:34)
[2017-01-20] MEDS: Ibuprofen 400 MG TABLET PO PRN (08:42)
--- NOTE | 2017-01-20 15:33 | Psychiatry Progress Note ---
Date of Encounter: 01/21/17 Time of Encounter: 15:30 Subjective Interval history: Patient is here for follow-up. Staff report he is alert and awake and denies any complaints of muscle pain or stiffness. He attended groups with minimal participation and interacts appropriately with peers and staff. He denies any auditory hallucination or suicidal ideation. His discharge plans are finalized. Review of Systems Psychiatric: Reports: depression, abnormal sleep pattern, auditory hallucinations, difficulty concentrating, other (Tight muscles in his arms) Objective: Exam Patient orientation: Yes Person, Yes Time, Yes Place Level of alertness: Alert Patient appearance: Unkempt, Disheveled, Obese Behavior: calm, cooperative Psychomotor activity: Slowed Eye contact: Maintains Eye Contact Mood description: Euthymic/stable, Anxious Affect description: congruent with mood, blunted Speech pattern: Normal rate, Normal rhythm, Normal tone, Limited, Impoverished Speech volume: Normal Thought process: Linear, Goal Oriented Thought content: No Suicidal ideation, No Homicidal ideation, No Overt delusions Perceptual disturbances: No Auditory hallucinations, No Visual hallucinations Judgment: Fair Insight: Partial Results - Vital Signs Vital Signs: Temp Pulse Resp BP Pulse Ox 98 F 84 16 116/82 98 01/19/17 20:38 01/19/17 20:38 01/19/17 20:38 01/19/17 20:38 01/14/17 05:45 Assessment and Plan (1) Schizophrenia, paranoid, chronic with acute exacerbation Current visit: Yes Status: Acute Plan: Continue hospitalization, Close observation, Suicide Precautions per unit protocol, Encourage participation in unit milieu, Group Therapy, Monitor sleep, Monitor appetite Risks, benefits, side effects, alternatives discussed w/pt: Yes Patient agreeable to treatment: Yes Consult Discharge Plan - Plan Referrals: [facility] [Outside] - 02/09/17 2:30 pm (The above appointment is with Yaritza Ortiz. You are going into respite at [facility] on discharge from the hospital. While there you will be seen daily by the clinic counselors and registered nurse hh case manager. You will also see your assigned counselor, Jill hebert there.)
[2017-01-20] MEDS: traZODone 50 MG TABLET PO PRN (20:42)
[2017-01-21] MEDS: Lactobacillus 1 EACH CAP.SPRINK PO SCH (08:31)
[2017-01-21] MEDS: *HR* LORazepam 0.5 MG TABLET PO SCH ×2 (08:31→14:22)
[2017-01-21] MEDS: Aspirin Enteric Coated 325 MG Tablet PO SCH (08:32)
[2017-01-21] MEDS: Vitamin B Complex/Vit C/Vit E 1 EACH TABLET PO SCH (08:32)
[2017-01-21] MEDS: Ketoconazole Shampoo 120 ML BOTTLE TP SCH (08:32)
[2017-01-21 09:23] VITALS: BP 123/85
--- NOTE | 2017-01-21 12:23 | Discharge Summary ---
Date of Encounter: 01/21/17 Time of Encounter: 12:16 Diagnosis - Discharge Diagnosis (1) Schizophrenia, paranoid, chronic with acute exacerbation Status: Acute Medications - Discharge Medications TraZODone 50 mg PO HS PRN #30 tablet 07/14/16 [Rx] Aspirin [Ecotrin] 325 mg PO DAILY #30 tablet. 12/01/16 [Rx] Lisinopril [Zestril] 5 mg PO DAILY #30 tablet 12/01/16 [Rx] Vitamin B Complex/Vit C/Vit E [Stresstab] 1 tab PO DAILY 12/05/16 [History] Amantadine [Symmetrel] 100 mg PO BID #30 capsule 12/25/16 [Rx] LORazepam [Ativan] 0.5 mg PO BID #30 tablet 12/25/16 [Rx] Propranolol [Inderal] 20 mg PO BID #60 tablet 12/25/16 [Rx] Ciprofloxacin HCl [Cipro] 500 mg PO BID #20 tablet 01/06/17 [Rx] Ketoconazole Shampoo [Nizoral Shampoo] 1 appl TP 2XW bottle 01/21/17 [Rx] Oxymetazoline [Afrin] 1 spray NS Q12HR PRN #0 bottle 01/21/17 [Rx] Allergies No Known Allergies Allergy (Verified 11/22/16 20:45) Results Procedures and tests throughout hospitalization: Completed Lab Orders Category Date Time Status CBC [Complete Blood Count] [HEME] Stat Lab 01/14/17 13:59 Completed Chem 7 [Basic Metabolic Panel] Stat Lab 01/14/17 13:59 Completed Electrolytes Stat Lab 01/10/17 14:15 Completed LFTs [Hepatic Panel] Stat Lab 01/14/17 13:59 Completed Myoglobin Stat Lab 01/14/17 13:59 Completed UA w. reflex culture [Urinalysis Reflex Cult & Micro] [ Lab 01/18/17 20:15 Completed URIN] Routine cpk [Creatine Kinase] Stat Lab 01/14/17 13:59 Completed Provider Date of admission: 01/09/17 15:59 Primary care physician: PCP NO Consults: 01/13/17 08:17 Consult to Dermatology [CONS] Routine Consulting Provider: [facility] [place] Reason for Consult: Patient with what appears to be exfoliating dermatitis. Requesting medicaiton recommendations after assessment. Time Notified: 08:20 Call Completed: Yes Discharging clinician: Antonio Philip Assessment and Plan - Patient/Caregiver Discharge Instructions Activity: resume usual activities as tolerated Diet: regular diet - Follow up Plan Follow up with: [facility] [Outside] - 02/09/17 2:30 pm (The above appointment is with Yaritza Ortiz. You are going into respite at [facility] on discharge from the hospital. While there you will be seen daily by the clinic counselors and renal case manager. You will also see your assigned counselor, Jill hebert there.) Functional capacity at discharge: independent ambulation Overall status at discharge: Stable Disposition: Home, Self-Care Hospital Course Hospital course: Mr. Miller is a 36 year old male admitted from the emergency room for evaluation and treatment of exacerbation of paranoid schizophrenia with auditory hallucination and noncompliance with medication. For details admission please see H&P On the units patient was evaluated and was noticed to have tachycardia and muscle stiffness. Antipsychotic medications were discontinued including Haldol and then Risperdal and patient was given Cogentin. Patient's symptoms improved and he was ambulatory and his vital signs stabilized and it was decided not to put the patient back on antipsychotic because he did not tolerate. Patient participated in some activities and was compliant with medication and he was denying auditory hallucinations. Prior to discharge he was medically stable and tolerated the medication. His discharge plans were completed by the social group worker and shared with patient and family to ensure safety and compliance. - Time Spent with Patient Total time spent providing and/or coordinating discharge services: Less than 30 minutes Quality - Multiple Antipsychotics Patient discharged on 2 or more antipsychotic medications: No Procedures - Procedures Procedures: Medication Management, Crisis Stabilization, Supportive Therapy, Group Therapy, Psychoeducational Therapy Mental Status Exam - Mental Status Exam Patient orientation: Yes Person, Yes Time, Yes Place Level of alertness: Alert Patient appearance: Appropriate, Unkempt Behavior: calm, cooperative Psychomotor activity: Normal Eye contact: Maintains Eye Contact Mood description: Euthymic/stable Affect description: congruent with mood, full range Speech pattern: Normal rate, Normal rhythm, Normal tone, Limited, Impoverished Speech Volume: Normal Thought process: Linear, Goal Oriented, [place] Thought Content: No Suicidal ideation, No Homicidal ideation, No Overt delusions Perceptual Disturbances: No Auditory hallucinations, No Visual hallucinations Judgment: Limited Insight: Partial
[2017-01-21] MEDS: Ibuprofen 400 MG TABLET PO PRN (14:22)
== END 2017-01-21 14:50 | disposition home or self-care (01) | DRG 750 ==
LOC: EMEROO 10:51 → 1ANU 15:59
PROVIDERS: ADMIT Psychiatry & Neurology Psychiatry; ATTEND Psychiatry & Neurology Psychiatry

== ENCOUNTER 2017-03-22 22:58 | Inpatient (IN) ==
--- NOTE | 2017-03-22 23:09 | Emergency Department Note ---
Disposition Clinical Impression: Schizophrenia Qualifiers: Schizophrenia type: unspecified Qualified Code(s): F20.9 - Schizophrenia, unspecified Disposition: Admitted As Inpatient Condition: Fair Referrals: NO,PCP [Primary Care Provider] - Forms: ED Satisfaction Letter Time of Disposition: 01:49 Psych HPI - General Chief Complaint: ED Psychiatric Symptoms Stated Complaint: 1A consult Time Seen by Provider: 03/22/17 23:02 Source: patient, EMS Mode of arrival: EMS Limitations: no limitations Nursing Notes Reviewed: Yes Vital Signs Reviewed: Yes - History of Present Illness HPI Narrative: States he is hearing voices again. Has been noncompliant with his psychiatric medications. Admits to drinking alcohol and smoking marijuana today. Onset (ago): day(s) Duration: intermittent History of similar episodes: Yes Improves with: none Worsens with: drug use Context: recent alcohol abuse Alleged intoxication: Yes Associated Psychiatric Symptoms: auditory hallucinations Associated symptoms: Reports: denies other symptoms Traumatic symptoms: denies traumatic injury Treatments prior to arrival: none - Related Data Home Medications Medication Instructions Recorded Confirmed Vitamin B Complex/Vit C/Vit E 1 tab PO DAILY 12/05/16 01/09/17 [Stresstab] Previous Rx's Medication Instructions Recorded TraZODone 50 mg PO HS PRN #30 tablet 07/14/16 Aspirin [Ecotrin] 325 mg PO DAILY #30 tablet. 12/01/16 Lisinopril [Zestril] 5 mg PO DAILY #30 tablet 12/01/16 Amantadine [Symmetrel] 100 mg PO BID #30 capsule 12/25/16 LORazepam [Ativan] 0.5 mg PO BID #30 tablet 12/25/16 Propranolol [Inderal] 20 mg PO BID #60 tablet 12/25/16 Ciprofloxacin HCl [Cipro] 500 mg PO BID #20 tablet 01/06/17 Ketoconazole Shampoo [Nizoral 1 appl TP 2XW bottle 01/21/17 Shampoo] Oxymetazoline [Afrin] 1 spray NS Q12HR PRN #0 bottle 01/21/17 Allergies Allergy/AdvReac Type Severity Reaction Status Date / Time No Known Allergies Allergy Verified 11/22/16 20:45 All systems ED: reviewed and negative except as stated. Constitutional: Reports: as per HPI Eyes: Reports: as per HPI ENT ED: Reports: as per HPI Cardiovascular: Reports: as per HPI Respiratory: Reports: as per HPI Gastrointestinal: Reports: as per HPI Genitourinary: Reports: as per HPI Musculoskeletal: Reports: as per HPI Integumentary: Reports: as per HPI Neurological: Reports: as per HPI Psychiatric: Reports: auditory hallucinations Endocrine: Reports: as per HPI Hematological/Lymphatic: Reports: as per HPI Allergic/Immunologic: Reports: as per HPI Past Medical History - Past Medical History Source: patient Medical history: Reports: hyperlipidemia, hypertension, seizures, other Surgical history: Reports: appendectomy, arthroscopy Psychiatric history: Reports: schizophrenia, previous psychiatric hospitalization - Social History Smoking Status: Current every day smoker Smokeless Tobacco Status: No Alcohol use: Reports: heavy Drug use: Reports: marijuana Physical Exam Flat affect - General Limitations: no limitations General appearance: alert - Head Head exam: atraumatic - Eye Eye exam: Present: normal appearance, PERRL - ENT ENT exam: normal exam - Neck Neck exam: Present: normal inspection, full ROM - Chest Chest inspection: Present: normal inspection, symmetric chest wall rise - Respiratory Respiratory exam: Present: normal lung sounds bilaterally - Cardiovascular Cardiovascular exam: Present: tachycardia, normal heart sounds - Rectal Exam Rectal exam: Present: deferred - Extremities Exam Extremities exam: Present: normal inspection - Neurological Exam Neurological exam: Present: alert, oriented X3, CN II-XII intact - Psychiatric Psychiatric exam: Present: anxious, flat affect - Skin Skin exam: Present: warm, dry, intact Course Course Narrative: Patient presents experiencing auditory hallucinations. He admits to marijuana and alcohol use and noncompliance with his psychiatric medications. I will attempt to clear her medically for behavioral evaluation - Reevaluation(s) Reevaluation #1: Cleared medically for behavioral evaluation Vital Signs Temperature 98.7 F 03/22/17 23:07 Pulse Rate 90 03/22/17 23:07 Respiratory Rate 18 03/22/17 23:07 Blood Pressure 142/91 03/22/17 23:07 O2 Sat by Pulse Oximetry 03/22/17 23:07 Temperature 98.7 F 03/22/17 23:07 Pulse Rate 90 03/22/17 23:07 Respiratory Rate 18 03/22/17 23:07 Blood Pressure 142/91 03/22/17 23:07 O2 Sat by Pulse Oximetry 03/22/17 23:07 Oxygen Delivery Oxygen Delivery Room Air Psych - Lab Data Lab results reviewed: Yes I reviewed the patient's lab results. Result diagrams: 03/22/17 23:24 03/22/17 23:24 Lab Results 03/22/17 03/22/17 03/22/17 Range/Units 23:24 23:24 23:57 WBC 14.3 H (4.3-11.1) K/mcL RBC 4.69 (4.19-5.50) M/mcL Hgb 14.5 (12.9-16.9) g/dL Hct 41.6 (37.5-50.1) % MCV 88.7 (83.0-100.0) fL MCH 30.9 (28.0-33.3) pg MCHC 34.9 (31.6-35.5) g/dL RDW 12.6 (11.5-14.5) % Plt Count 322 (140-400) K/mcL MPV 10.0 (9.4-12.4) fL Immature Gran % 0.3 (0-4) % Seg Neutrophils % 71.8 % Lymphocytes % 18.3 % Monocytes % 8.3 % Eosinophils % 0.9 % Basophils % 0.4 % Neutrophils # 10.3 H (1.6-8.9) K/mcL Lymphocytes # 2.6 (0.6-4.6) K/mcL Monocytes # 1.2 (0.0-1.3) K/mcL Eosinophils # 0.1 (0.0-0.6) K/mcL Basophils # 0.1 (0.0-0.2) K/mcL Sodium 138 (136-145) mEq/L Potassium 3.8 (3.5-4.5) mEq/L Chloride 106 (98-109) mEq/L Carbon Dioxide 23 (19-29) mEq/L BUN 12 (8-26) mg/dL Creatinine 0.95 (0.72-1.25) mg/dL Est GFR ( Amer) > 60 (> 60) Est GFR (Non-Af Amer) > 60 (> 60) BUN/Creatinine Ratio 13 (6-26) Glucose 106 H (70-99) mg/dL Calculated Osmolality 286 (280-300) Calcium 9.4 (8.6-10.8) mg/dL Salicylates < 5.0 L (15-30) mg/dL Urine Opiates Screen Negative (Mtzfaw=028) ng/mL Acetaminophen < 1.0 L (10-30) mcg/mL Ur Barbiturates Screen Negative (Wktkxq=571) ng/mL Ur Phencyclidine Scrn Negative (Cutoff=25) ng/mL Ur Amphetamines Screen Negative (Hxzzsb=2551) ng/mL U Benzodiazepines Scrn Negative (Uxhssp=879) ng/mL Urine Cocaine Screen Negative (Cutoff= 300) ng/mL U Marijuana (THC) Screen Negative (Cutoff = 50) ng/mL Ethyl Alcohol < 10 (0-10) mg/dL - EKG Data EKG attestation: Yes I reviewed and interpreted this EKG. EKG results narrative: Sinus rhythm rate 92 by mouth 120 QRS 96 QT/QTC 337/387. No acute ST segment elevation Psychiatric Medical Clearance - Medical Clearance Checklist Medical History: No Social History Section defined Current Vitals: Last Vital Signs Temp 98.7 F 03/22/17 23:07 Pulse 90 03/22/17 23:07 Resp 18 03/22/17 23:07 BP 142/91 03/22/17 23:07 Pulse Ox 91 03/22/17 23:07 Psychiatric Lab Panel: Drug Levels and Toxicity 03/22/17 03/22/17 23:24 23:57 Urine Opiates Screen Negative Acetaminophen < 1.0 L Ur Barbiturates Screen Negative Ur Phencyclidine Scrn Negative Ur Amphetamines Screen Negative U Benzodiazepines Scrn Negative Urine Cocaine Screen Negative U Marijuana (THC) Screen Negative Ethyl Alcohol < 10 Abnormal Labs: Abnormal lab results WBC 14.3 K/mcL (4.3-11.1) H 03/22/17 23:24 Neutrophils # 10.3 K/mcL (1.6-8.9) H 03/22/17 23:24 Glucose 106 mg/dL (70-99) H 03/22/17 23:24 Salicylates < 5.0 mg/dL (15-30) L 03/22/17 23:24 Acetaminophen < 1.0 mcg/mL (10-30) L 03/22/17 23:24 Statement of Medical Clearance: I have evaluated the patient, reviewed diagnostic information, and certify that the patient's medical condition is sufficiently stable that transfer to the psychiatric unit does not pose a significant risk of deterioration.
[2017-03-22 23:34] LABS: Basophils # 0.1 K/mcL (0.0-0.2); Basophils % 0.4 %; Eosinophils # 0.1 K/mcL (0.0-0.6); Eosinophils % 0.9 %; Hematocrit 41.6 % (37.5-50.1); Hemoglobin 14.5 g/dL (12.9-16.9); Immature Granulocytes % 0.3 % (0-4); Lymphocytes # 2.6 K/mcL (0.6-4.6); Lymphocytes % 18.3 %; Mean Corpuscular HGB Conc 34.9 g/dL (31.6-35.5); Mean Corpuscular Hemoglobin 30.9 pg (28.0-33.3); Mean Corpuscular Volume 88.7 fL (83.0-100.0); Monocytes # 1.2 K/mcL (0.0-1.3); Monocytes % 8.3 %; Neutrophils # 10.3 K/mcL (1.6-8.9); Platelet Count 322 K/mcL (140-400); Red Blood Count 4.69 M/mcL (4.19-5.50); Red Cell Distribution Width 12.6 % (11.5-14.5); Segmented Neutrophils % 71.8 %
[2017-03-22 23:43] LABS: BUN/Creatinine Ratio 13 (6-26); Blood Urea Nitrogen 12 mg/dL (8-26); Calcium 9.4 mg/dL (8.6-10.8); Carbon Dioxide 23 mEq/L (19-29); Chloride 106 mEq/L (98-109); Glucose 106 mg/dL (70-99); Osmolality,Calculated 286 (280-300); Potassium 3.8 mEq/L (3.5-4.5); Sodium 138 mEq/L (136-145); eGFR For African Americans > 60 (> 60); eGFR For Non-African Americans > 60 (> 60)
[2017-03-23 00:17] LABS: Amphetamine Screen,Urine Negative ng/mL (Cutoff=1000); Barbiturate Screen,Urine Negative ng/mL (Cutoff=200); Benzodiazepines Screen,Urine Negative ng/mL (Cutoff=200); Cannabinoid Screen,Urine Negative ng/mL (Cutoff = 50); Cocaine Screen,Urine Negative ng/mL (Cutoff= 300); Opiate Screen,Urine Negative ng/mL (Cutoff=300); Phencyclidine Screen,Urine Negative ng/mL (Cutoff=25)
[2017-03-23 00:52] LABS: Acetaminophen < 1.0 mcg/mL (10-30); Ethanol < 10 mg/dL (0-10); Salicylate < 5.0 mg/dL (15-30)
[2017-03-23] MEDS ORDERED: *HR* LORazepam 2 MG/ML VIAL IM ONE (01:49)
[2017-03-23] MEDS ORDERED: *HR* LORazepam 2 MG/ML VIAL IM PRN (02:15)
[2017-03-23] MEDS ORDERED: traZODone 50 MG TABLET PO PRN (02:15)
[2017-03-23] MEDS ORDERED: Haloperidol Lactate 5 MG/ML VIAL IM PRN (02:15)
[2017-03-23] MEDS ORDERED: MOM Conc 10 ML UD.LIQ PO PRN (02:15)
[2017-03-23] MEDS ORDERED: Nicotine 2 MG GUM BC PRN (02:15)
[2017-03-23] MEDS ORDERED: Mag Hydrox/Al Hydrox/Simeth 30 ML UDC PO PRN (02:15)
[2017-03-23] MEDS: Ibuprofen 400 MG TABLET PO PRN ×2 (03:18→19:11)
[2017-03-23] MEDS: *HR* LORazepam 1 MG TABLET PO PRN ×2 (09:37→18:43)
--- NOTE | 2017-03-23 13:50 | Psychiatry History & Physical ---
Date of Encounter: 03/23/17 Time of Encounter: 13:43 History of Present Illness Patient Stated Chief Complaint: psychosis Medicare Admission Attestation: For traditional Medicare patients the provided hospital inpatient services are reasonable and necessary and in the case of services not specified as inpatient -only under 42 CFR 419.22 (n), that they are appropriately provided as inpatient services in accordance 42 CFR 412.3. For Critical Access Hospital the patient may reasonably be expected to be discharged or transferred to a hospital within 96 hours after admission to the Critical Access Hospital. Admitted From: Home Plans for Post Hospital Care: Home History of Present Illness: Mr. Miller is a 36 year old male who was admitted secondary to psychosis. Client endorses AH of a derogatory and negative nature. Voices telling him to go to [facility]. Denies SI/HI and reports AH not commanding harm to self or others. Multiple prior admissions. Admitted in December and discharged to respite care. However, client left facility to return to live with his father who is also mentally ill. Has a history of leaving all placements to return to father's home. According to staff he is restless with poor sleep. Required prns yesterday. According to doctor's note from previous admission client was discharged with no antipsychotics due to tachycardia and muscle stiffness. Will D/C typical antipsychotics. Discussed taking Seroquel as it is less likely to cause an EPS type reaction. Will use Seroquel as a prn as well. Client reports Etoh and THC use but denies any other substance abuse problems. Denies any medical problems except HTN. Looks like he has taken Propanolol and Lisinopril recently although last dose not verified. Will start again at low doses. Past Med Surg Social Fam HX - Past Medical History Medical history: hyperlipidemia, hypertension, seizures, other - Past Psychiatric History Psychiatric history: Reports: schizophrenia, previous psychiatric hospitalization Family psychiatric history: Yes Family Psychiatric History Details: Father-bipolar disorder Family History of Suicide: Unknown - Past Surgical History Surgical History: appendectomy, arthroscopy - Social History Smoking Status: Current every day smoker Smokeless Tobacco Status: No Alcohol use: heavy Drug use: marijuana - Family History Father Hx Family Cardiac Disorders: Yes Medications & Allergies TraZODone 50 mg PO HS PRN #30 tablet 07/14/16 [Rx] Aspirin [Ecotrin] 325 mg PO DAILY #30 tablet. 12/01/16 [Rx] Lisinopril [Zestril] 5 mg PO DAILY #30 tablet 12/01/16 [Rx] Amantadine [Symmetrel] 100 mg PO BID #30 capsule 12/25/16 [Rx] LORazepam [Ativan] 0.5 mg PO BID #30 tablet 12/25/16 [Rx] Propranolol [Inderal] 20 mg PO BID #60 tablet 12/25/16 [Rx] Ketoconazole Shampoo [Nizoral Shampoo] 1 appl TP 2XW bottle 01/21/17 [Rx] Oxymetazoline [Afrin] 1 spray NS Q12HR PRN #0 bottle 01/21/17 [Rx] Allergies No Known Allergies Allergy (Verified 11/22/16 20:45) Review of Systems Constitutional: Denies: fever, chills, weakness, weight change Eyes: Denies: eye pain, vision change Ears, Nose, Throat: Denies: ear pain, throat pain, dental pain, hearing loss, congestion Cardiovascular: Denies: chest pain, palpitations, dyspnea on exertion Respiratory: Denies: cough, dyspnea, wheezes Gastrointestinal: Denies: abdominal pain, nausea, vomiting, diarrhea, constipation Genitourinary male: Denies: urgency, dysuria, frequency, genital lesions Genitourinary female: Denies: urgency, dysuria, frequency, abnormal menses, dyspareunia Musculoskeletal: Denies: joint swelling, joint pain Integumentary: Denies: rash, lesions, pruritus Neurological: Denies: headache, weakness, numbness, memory loss Endocrine: Denies: fatigue, heat or cold intolerance Hematologic/Lymphatic: Denies: easy bruising, lymphadenopathy Allergic/Immunologic: Denies: urticaria, itchy eyes Mental Status Exam Patient orientation: Yes Person, Yes Time, Yes Place Level of alertness: Alert Patient appearance: Disheveled Behavior: restless Psychomotor activity: Normal Eye contact: Maintains Eye Contact Mood description: Irritable Affect description: congruent with mood Speech pattern: Repetitive, Mumbled Speech volume: Soft/Quiet Thought process: Linear Thought content: No Suicidal ideation, No Homicidal ideation, No Overt delusions Perceptual disturbances: Yes Reacting to internal stimuli, Yes Auditory hallucinations Attention span: Unable to Focus, Unable to Sustain Attention Memory description: Grossly Intact Patient reliability: Questionable Historian Intelligence estimate: Average Judgment: Limited Insight: Minimal Exam - HEENT Head exam IM: Present: atraumatic Eye exam IM: Present: EOMI ENT exam IM: Present: mucous membranes moist - Neurological Neurological exam IM: Present: alert - Respiratory Respiratory exam IM: Present: CTAB - GI/Abdominal GI/Abdominal exam IM: Present: normal bowel sounds - Extremities Extremities exam IM: Present: full ROM - Skin Skin exam IM: Present: intact Results - Vital Signs Vital signs: Temp Pulse Resp BP Pulse Ox 97.6 F 73 16 129/83 91 03/23/17 09:00 03/23/17 09:00 03/23/17 09:00 03/23/17 09:00 03/22/17 23:07 - Labs Labs: Laboratory Last Values WBC 14.3 K/mcL (4.3-11.1) H 03/22/17 23:24 RBC 4.69 M/mcL (4.19-5.50) 03/22/17 23:24 Hgb 14.5 g/dL (12.9-16.9) 03/22/17 23:24 Hct 41.6 % (37.5-50.1) 03/22/17 23:24 MCV 88.7 fL (83.0-100.0) 03/22/17 23:24 MCH 30.9 pg (28.0-33.3) 03/22/17 23:24 MCHC 34.9 g/dL (31.6-35.5) 03/22/17 23:24 RDW 12.6 % (11.5-14.5) 03/22/17 23:24 Plt Count 322 K/mcL (140-400) 03/22/17 23:24 MPV 10.0 fL (9.4-12.4) 03/22/17 23:24 Immature Gran % 0.3 % (0-4) 03/22/17 23:24 Seg Neutrophils % 71.8 % 03/22/17 23:24 Lymphocytes % 18.3 % 03/22/17 23:24 Monocytes % 8.3 % 03/22/17 23:24 Eosinophils % 0.9 % 03/22/17 23:24 Basophils % 0.4 % 03/22/17 23:24 Neutrophils # 10.3 K/mcL (1.6-8.9) H 03/22/17 23:24 Lymphocytes # 2.6 K/mcL (0.6-4.6) 03/22/17 23:24 Monocytes # 1.2 K/mcL (0.0-1.3) 03/22/17 23:24 Eosinophils # 0.1 K/mcL (0.0-0.6) 03/22/17 23:24 Basophils # 0.1 K/mcL (0.0-0.2) 03/22/17 23:24 Sodium 138 mEq/L (136-145) 03/22/17 23:24 Potassium 3.8 mEq/L (3.5-4.5) 03/22/17 23:24 Chloride 106 mEq/L (98-109) 03/22/17 23:24 Carbon Dioxide 23 mEq/L (19-29) 03/22/17 23:24 BUN 12 mg/dL (8-26) 03/22/17 23:24 Creatinine 0.95 mg/dL (0.72-1.25) 03/22/17 23:24 Est GFR ( Amer) > 60 (> 60) 03/22/17 23:24 Est GFR (Non-Af Amer) > 60 (> 60) 03/22/17 23:24 BUN/Creatinine Ratio 13 (6-26) 03/22/17 23:24 Glucose 106 mg/dL (70-99) H 03/22/17 23:24 Calculated Osmolality 286 (280-300) 03/22/17 23:24 Calcium 9.4 mg/dL (8.6-10.8) 03/22/17 23:24 Salicylates < 5.0 mg/dL (15-30) L 03/22/17 23:24 Urine Opiates Screen Negative ng/mL (Czthjd=373) 03/22/17 23:57 Acetaminophen < 1.0 mcg/mL (10-30) L 03/22/17 23:24 Ur Barbiturates Screen Negative ng/mL (Rvncng=427) 03/22/17 23:57 Ur Phencyclidine Scrn Negative ng/mL (Cutoff=25) 03/22/17 23:57 Ur Amphetamines Screen Negative ng/mL (Lukuzj=8311) 03/22/17 23:57 U Benzodiazepines Scrn Negative ng/mL (Csjqdz=567) 03/22/17 23:57 Urine Cocaine Screen Negative ng/mL (Cutoff= 300) 03/22/17 23:57 U Marijuana (THC) Screen Negative ng/mL (Cutoff = 50) 03/22/17 23:57 Ethyl Alcohol < 10 mg/dL (0-10) 03/22/17 23:24 Assessment and Plan (1) Schizophrenia Current visit: No Status: Chronic Plan: Admit inpatient for safety and stabilization, Close observation, Suicide Precautions per unit protocol, Encourage participation in unit milieu, Group Therapy, Monitor sleep, Monitor appetite Risks, benefits, side effects, alternatives discussed w/pt: Yes Patient agreeable to treatment: Yes Plans for Post Hospital Care: Home Estimated Length of Stay (Days): 5 Qualifiers: Schizophrenia type: unspecified Qualified Code(s): F20.9 - Schizophrenia, unspecified
--- NOTE | 2017-03-23 19:04 | Electrocardiograph Report ---
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
[2017-03-24] MEDS: Ibuprofen 400 MG TABLET PO PRN ×2 (12:56→19:27)
--- NOTE | 2017-03-24 13:02 | Psychiatry Progress Note ---
Date of Encounter: 03/24/17 Time of Encounter: 12:53 Subjective Interval history: Feels Seroquel may be helping. Believes medication is taking the edge off the AH but he is still hearing them. Voices telling him he will and go to hell. Staff spoke with his father who reported when client decompensates he starts talking about the devil and hell and he will start watching programming on TV consistent with what the voices are telling him. Staff are trying to organize a family meeting prior to discharge. Client is routinely discharged to respite care but will leave and return to father's house. Staff are hoping family can be more encouraging of client remaining in a treatment oriented facility. Client remembers NMS type symptoms from prior admission. Denies anything similar now. Feels physically well and will alert staff to any changes. Agreeable to increasing Seroquel dose. Reports it makes him tired but needs better symptom control. Review of Systems Constitutional: Denies: fever, chills, weakness, weight change Eyes: Denies: eye pain, vision change Ears, Nose, Throat: Denies: ear pain, throat pain, dental pain, hearing loss, congestion Cardiovascular: Denies: chest pain, palpitations, dyspnea on exertion Respiratory: Denies: cough, dyspnea, wheezes Gastrointestinal: Denies: abdominal pain, nausea, vomiting, diarrhea, constipation Musculoskeletal: Denies: joint swelling, joint pain Neurological: Denies: headache, weakness, numbness, memory loss Objective: Exam Patient orientation: Yes Person, Yes Time, Yes Place Level of alertness: Alert Patient appearance: Unkempt, Disheveled Behavior: calm, cooperative Psychomotor activity: Normal Eye contact: Maintains Eye Contact Mood description: Irritable Affect description: congruent with mood Speech pattern: Mumbled Speech volume: Soft/Quiet Thought process: Linear Thought content: No Suicidal ideation, No Homicidal ideation, Yes Paranoid delusion Perceptual disturbances: Yes Reacting to internal stimuli, Yes Auditory hallucinations Judgment: Limited Insight: Partial Results - Vital Signs Vital Signs: Temp Pulse Resp BP Pulse Ox 98 F 96 18 131/96 91 03/24/17 09:00 03/24/17 09:00 03/24/17 09:00 03/24/17 09:00 03/22/17 23:07 Assessment and Plan (1) Schizophrenia Current visit: No Status: Chronic Plan: Continue hospitalization, Close observation, Suicide Precautions per unit protocol, Encourage participation in unit milieu, Group Therapy, Monitor sleep, Monitor appetite, Family/Supportive other meeting Risks, benefits, side effects, alternatives discussed w/pt: Yes Patient agreeable to treatment: Yes Qualifiers: Schizophrenia type: unspecified Qualified Code(s): F20.9 - Schizophrenia, unspecified Consult Discharge Plan - Plan Referrals: [facility] [Outside] - 04/01/17 11:00 am (The above appointment is with Jill counselor. You will also see Yaritza Ortiz, psychiatric nurse practitioner, on 04/13/17 at 3:30pm.)
[2017-03-25] MEDS: Ibuprofen 400 MG TABLET PO PRN (12:10)
--- NOTE | 2017-03-25 13:16 | Psychiatry Progress Note ---
Date of Encounter: 03/25/17 Time of Encounter: 13:09 Subjective Interval history: Client reports his AH are improving. Clinically looks the same but he is reporting the voices are duller and he is less able to make out what they say. Denies any symptoms similar to his NMS reactions in the past. Staff have made several phone calls to try and set up a family meeting prior to discharge. Although Vincent has been cooperative he is also interested in when he is leaving and wants to go back to his father's house. Discussing an outpatient commitment as client is frequently seeking inpatient care but he never follows through with his discharge plan and residential treatment. Review of Systems Constitutional: Denies: fever, chills, weakness, weight change Eyes: Denies: eye pain, vision change Ears, Nose, Throat: Denies: ear pain, throat pain, dental pain, hearing loss, congestion Cardiovascular: Denies: chest pain, palpitations, dyspnea on exertion Respiratory: Denies: cough, dyspnea, wheezes Gastrointestinal: Denies: abdominal pain, nausea, vomiting, diarrhea, constipation Musculoskeletal: Denies: joint swelling, joint pain Neurological: Denies: headache, weakness, numbness, memory loss Objective: Exam Patient orientation: Yes Person, Yes Time, Yes Place Level of alertness: Alert Patient appearance: Unkempt, Disheveled Behavior: calm, cooperative Psychomotor activity: Normal Eye contact: Maintains Eye Contact Mood description: Euthymic/stable Affect description: constricted Speech pattern: Mumbled Speech volume: Soft/Quiet Thought process: [place] Thought content: No Suicidal ideation, No Homicidal ideation, No Overt delusions Perceptual disturbances: Yes Auditory hallucinations Judgment: Limited Insight: Minimal Results - Vital Signs Vital Signs: Temp Pulse Resp BP Pulse Ox 98.2 F 85 16 129/74 91 03/25/17 08:49 03/25/17 08:49 03/25/17 08:49 03/25/17 08:49 03/22/17 23:07 Assessment and Plan (1) Schizophrenia Current visit: No Status: Chronic Plan: Continue hospitalization, Close observation, Suicide Precautions per unit protocol, Encourage participation in unit milieu, Group Therapy, Monitor sleep, Monitor appetite, Family/Supportive other meeting Risks, benefits, side effects, alternatives discussed w/pt: Yes Patient agreeable to treatment: Yes Qualifiers: Schizophrenia type: unspecified Qualified Code(s): F20.9 - Schizophrenia, unspecified Consult Discharge Plan - Plan Referrals: [facility] [Outside] - 04/01/17 11:00 am (The above appointment is with Jill counselor. You will also see Yaritza Ortiz, psychiatric nurse practitioner, on 04/13/17 at 3:30pm.)
[2017-03-25] MEDS: hydrOXYzine pamoate 25 MG CAPSULE PO PRN (17:54)
--- NOTE | 2017-03-26 13:15 | Psychiatry Progress Note ---
Date of Encounter: 03/26/17 Time of Encounter: 13:12 Subjective Interval history: Client reports he is doing better. States his AH are gone. While that may not be completely true he is clearly feeling less distressed. Family meeting is scheduled for Wednesday. Plan is to discharge him to a respite bed. Client reports he will stay for treatment this time but staff intend to pursue an outpatient commitment prior to discharge in order to help ensure client engages in the community based treatment he needs. No NMS symptoms. Review of Systems Constitutional: Denies: fever, chills, weakness, weight change Eyes: Denies: eye pain, vision change Ears, Nose, Throat: Denies: ear pain, throat pain, dental pain, hearing loss, congestion Cardiovascular: Denies: chest pain, palpitations, dyspnea on exertion Respiratory: Denies: cough, dyspnea, wheezes Gastrointestinal: Denies: abdominal pain, nausea, vomiting, diarrhea, constipation Musculoskeletal: Denies: joint swelling, joint pain Neurological: Denies: headache, weakness, numbness, memory loss Objective: Exam Patient orientation: Yes Person, Yes Time, Yes Place Level of alertness: Alert Patient appearance: Unkempt, Disheveled Behavior: calm, cooperative Psychomotor activity: Normal Eye contact: Maintains Eye Contact Mood description: Euthymic/stable Affect description: blunted Speech pattern: Mumbled Speech volume: Normal Thought process: [place] Thought content: No Suicidal ideation, No Homicidal ideation, No Overt delusions Perceptual disturbances: Yes Reacting to internal stimuli, No Auditory hallucinations, No Visual hallucinations Judgment: Limited Insight: Minimal Results - Vital Signs Vital Signs: Temp Pulse Resp BP Pulse Ox 98.3 F 67 18 122/83 91 03/26/17 08:45 03/26/17 08:45 03/26/17 08:45 03/26/17 08:45 03/22/17 23:07 Assessment and Plan (1) Schizophrenia Current visit: No Status: Chronic Plan: Continue hospitalization, Close observation, Suicide Precautions per unit protocol, Encourage participation in unit milieu, Group Therapy, Monitor sleep, Monitor appetite Risks, benefits, side effects, alternatives discussed w/pt: Yes Patient agreeable to treatment: Yes Qualifiers: Schizophrenia type: unspecified Qualified Code(s): F20.9 - Schizophrenia, unspecified Consult Discharge Plan - Plan Referrals: [facility] [Outside] (You are going into respite at [facility] on discharge from the hospital. While there, you will be seen daily by the clinic counselors and showcase trimmer. You will see your designated counselor, Jill, on 04/01/2011 at 11:00am. You will also see Yaritza Ortiz, psychiatric nurse practitioner, on at 3:30pm for ongoing psychiatric medication management.)
[2017-03-26] MEDS: Ibuprofen 400 MG TABLET PO PRN (18:53)
--- NOTE | 2017-03-27 11:10 | Psychiatry Progress Note ---
Date of Encounter: 03/27/17 Time of Encounter: 11:15 Subjective Interval history: Patient seen and interviewed. History and physical examination reviewed. Patient is demonstrating control and compliant behavior. Having minimal interaction with staff and peers. Mostly isolated and withdrawn. Tolerating medications fairly well. Denying any overt psychotic symptoms. Family session is scheduled for Wednesday. Overall functioning at his baseline Objective: Exam Patient orientation: Yes Person, Yes Time, Yes Place Level of alertness: Alert Patient appearance: Unkempt, Disheveled Behavior: anxious Psychomotor activity: Normal Eye contact: Maintains Eye Contact Mood description: Euthymic/stable Affect description: blunted Speech pattern: Limited Speech volume: Soft/Quiet Thought process: [place] Thought content: No Suicidal ideation, No Homicidal ideation, No Overt delusions Perceptual disturbances: No Auditory hallucinations, No Visual hallucinations Judgment: Limited Insight: Minimal Results - Vital Signs Vital Signs: Temp Pulse Resp BP Pulse Ox 97.4 F L 59 16 125/80 91 03/27/17 08:52 03/27/17 08:52 03/27/17 08:52 03/27/17 08:52 03/22/17 23:07 Assessment and Plan (1) Schizophrenia Current visit: No Status: Chronic Plan: Continue hospitalization, Close observation, Suicide Precautions per unit protocol, Encourage participation in unit milieu, Group Therapy, Monitor sleep, Monitor appetite, Family/Supportive other meeting Additional Plan: Continue with current medication regime Risks, benefits, side effects, alternatives discussed w/pt: Yes Patient agreeable to treatment: Yes Qualifiers: Schizophrenia type: unspecified Qualified Code(s): F20.9 - Schizophrenia, unspecified Consult Discharge Plan - Plan Referrals: [facility] [Outside] (You are going into respite at [facility] on discharge from the hospital. While there, you will be seen daily by the clinic counselors and director of casework. You will see your designated counselor, Jill, on 04/01/2011 at 11:00am. You will also see Yaritza Ortiz, psychiatric nurse practitioner, on at 3:30pm for ongoing psychiatric medication management.)
[2017-03-27] MEDS: Ibuprofen 400 MG TABLET PO PRN (18:03)
[2017-03-27] MEDS: hydrOXYzine pamoate 25 MG CAPSULE PO PRN (18:05)
--- NOTE | 2017-03-28 09:46 | Psychiatry Progress Note ---
Date of Encounter: 03/28/17 Time of Encounter: 08:35 Subjective Interval history: Patient seen and interviewed. Continue to do well. Still withdrawn but controlled and compliant. Coming out of his room to have meals that minimal interaction with staff and other peers. He is denying any overt psychotic or manic symptoms. He is denying auditory hallucinations or paranoia. He has been tolerating medications fairly well did not report any side effects. Discussed the possibility of discharge tomorrow patient is agreeable with the plan and feels he will be ready tomorrow. Objective: Exam Patient orientation: Yes Person, Yes Time, Yes Place Level of alertness: Alert Patient appearance: Unkempt, Disheveled Behavior: nervous, anxious Psychomotor activity: Normal Eye contact: Minimal Contact Mood description: Euthymic/stable Affect description: constricted Speech pattern: Pressured, Monotone Speech volume: Normal Thought process: [place] Thought content: Yes Poverty of Content Perceptual disturbances: No Auditory hallucinations, No Visual hallucinations Judgment: Limited Insight: Minimal Results - Vital Signs Vital Signs: Temp Pulse Resp BP Pulse Ox 97.8 F 75 16 107/71 91 03/27/17 20:14 03/27/17 20:14 03/27/17 20:14 03/27/17 20:14 03/22/17 23:07 Assessment and Plan (1) Schizophrenia Current visit: No Status: Chronic Plan: Continue hospitalization, Close observation, Suicide Precautions per unit protocol, Encourage participation in unit milieu, Group Therapy, Monitor sleep, Monitor appetite Additional Plan: Possible discharge tomorrow Risks, benefits, side effects, alternatives discussed w/pt: Yes Patient agreeable to treatment: Yes Qualifiers: Schizophrenia type: unspecified Qualified Code(s): F20.9 - Schizophrenia, unspecified Consult Discharge Plan - Plan Referrals: [facility] [Outside] (You are going into respite at [facility] on discharge from the hospital. While there, you will be seen daily by the clinic counselors and embedded case manager. You will see your designated counselor, Jill, on 04/01/2011 at 11:00am. You will also see Yaritza Ortiz, psychiatric nurse practitioner, on at 3:30pm for ongoing psychiatric medication management.)
[2017-03-28] MEDS: Ibuprofen 400 MG TABLET PO PRN (15:25)
[2017-03-28] MEDS: hydrOXYzine pamoate 25 MG CAPSULE PO PRN ×2 (15:26→19:46)
[2017-03-29 10:03] VITALS: BP 122/83
--- NOTE | 2017-03-29 14:52 | Discharge Summary ---
Date of Encounter: 03/29/17 Time of Encounter: 14:46 Diagnosis - Discharge Diagnosis (1) Schizophrenia Status: Chronic Qualifiers: Schizophrenia type: undifferentiated schizophrenia Qualified Code(s): F20.3 - Undifferentiated schizophrenia Medications - Discharge Medications Prescriptions: Quetiapine Fumarate [Seroquel] 100 mg PO QAM #30 tablet Quetiapine Fumarate [Seroquel] 150 mg PO HS #30 tablet TraZODone 50 mg PO HS PRN #30 tablet 07/14/16 [Rx] Aspirin [Ecotrin] 325 mg PO DAILY #30 tablet.dr 12/01/16 [Rx] Lisinopril [Zestril] 5 mg PO DAILY #30 tablet 12/01/16 [Rx] Amantadine [Symmetrel] 100 mg PO BID #30 capsule 12/25/16 [Rx] Propranolol [Inderal] 20 mg PO BID #60 tablet 12/25/16 [Rx] Ketoconazole Shampoo [Nizoral Shampoo] 1 appl TP 2XW bottle 01/21/17 [Rx] Oxymetazoline [Afrin] 1 spray NS Q12HR PRN #0 bottle 01/21/17 [Rx] Lisinopril [Zestril] 5 mg PO DAILY tablet 03/29/17 [Rx] Propranolol [Inderal] 10 mg PO BID tablet 03/29/17 [Rx] Quetiapine Fumarate [Seroquel] 100 mg PO QAM #30 tablet 03/29/17 [Rx] Quetiapine Fumarate [Seroquel] 150 mg PO HS #30 tablet 03/29/17 [Rx] Allergies No Known Allergies Allergy (Verified 11/22/16 20:45) Provider Date of admission: 03/23/17 01:55 Primary care physician: PCP NO Consults: 03/23/17 18:54 Consult to Pastoral Services [CONS] Routine Comment: 03/27/17 18:02 Consult to Pastoral Services [CONS] Routine Comment: Pt is requesting is religious preist Discharging clinician: Antonio Philip Assessment and Plan - Patient/Caregiver Discharge Instructions Activity: resume usual activities as tolerated Diet: regular diet Additional Instructions: Outpatient referral for individual vivitrol evaluation is recommended to help patient maintain sobriety from alcohol. - Follow up Plan Follow up with: [facility] [Outside] (You are going into respite at [facility] on discharge from the hospital. While there, you will be seen daily by the clinic counselors and case hardener. You will see your designated counselor, Jill, on 04/01/2011 at 11:00am. You will also see Yaritza Ortiz, psychiatric nurse practitioner, on at 3:30pm for ongoing psychiatric medication management.) Functional capacity at discharge: independent ambulation Overall status at discharge: Stable Disposition: Home, Self-Care Hospital Course Hospital course: Mr. Miller is a 36 year old male admitted for auditory hallucinations and alcohol abuse. For details on the admission please see H&P On the unit patient was placed on Seroquel, she tolerated the medication did not present any extrapyramidal symptoms. He reported improved sleep denied auditory hallucinations was advised and counseled about alcohol abuse and recommendation for vivitrol Evaluation was documented. On discharge patient was medically stable, denied auditory hallucinations, his discharge plans and case management were reviewed by the executive secretary social welfare. - Time Spent with Patient Total time spent providing and/or coordinating discharge services: Greater than 30 minutes Quality - Multiple Antipsychotics Patient discharged on 2 or more antipsychotic medications: No Procedures - Procedures Procedures: Medication Management, Crisis Stabilization, Supportive Therapy, Group Therapy, Psychoeducational Therapy Mental Status Exam - Mental Status Exam Patient orientation: Yes Person, Yes Time, Yes Place Level of alertness: Alert Patient appearance: Appropriate, Unkempt, Disheveled Behavior: calm, cooperative Psychomotor activity: Slowed Eye contact: Minimal Contact Mood description: Euthymic/stable Affect description: congruent with mood, constricted Speech pattern: Normal rate, Normal rhythm, Normal tone Speech Volume: Normal Thought process: Linear, Goal Oriented Thought Content: No Suicidal ideation, No Homicidal ideation, No Overt delusions Perceptual Disturbances: No Auditory hallucinations, No Visual hallucinations Judgment: Limited Insight: Partial
== END 2017-03-29 15:35 | disposition home or self-care (01) | DRG 750 ==
LOC: EMEROO 22:58 → SUATTDRO 03-23 01:55 → 1ANU 03-23 01:55
PROVIDERS: ADMIT Psychiatry & Neurology Psychiatry; ATTEND Psychiatry & Neurology Psychiatry

== ENCOUNTER 2017-05-03 13:03 | Inpatient (IN) ==
--- NOTE | 2017-05-03 13:18 | Emergency Department Note ---
Disposition Clinical Impression: Acute psychosis, Hallucinations Disposition: Admitted As Inpatient Condition: Fair Time of Disposition: 18:30 Psych HPI - General Chief Complaint: ED Psychiatric Symptoms Stated Complaint: Hearing Voices Time Seen by Provider: 05/03/17 13:06 Source: patient Mode of arrival: ambulatory Limitations: other (acute psychosis, not talkative) - History of Present Illness HPI Narrative: Patient is a 36-year-old male who presents to [facility] ED with a chief complaint of hearing voices and seeing things. States he is hearing voices as well as seeing God, Jonathan Jennings telling him that they are out to get him and that they are going to "smite" him. Patient admits to some nausea, no vomiting. States he has had some abdominal pain. Patient is very withdrawn and it is very difficult to get him to respond to questions. Unsure of how reliable his review of systems is. Pt complaint: other (hearing voices/see things) If medical clearance, reason: psychiatric condition Onset (ago): day(s) Duration: constant History of similar episodes: Yes Improves with: none Worsens with: none Context: recent alcohol abuse Alleged intoxication: No Associated Psychiatric Symptoms: auditory hallucinations, visual hallucinations Associated symptoms: Reports: nausea. Denies: headache, shortness of breath, vomiting Traumatic symptoms: denies traumatic injury Treatments prior to arrival: none Self harm or harm to others: admits thoughts of self harm - Related Data Previous Rx's Medication Instructions Recorded TraZODone 50 mg PO HS PRN #30 tablet 07/14/16 Aspirin [Ecotrin] 325 mg PO DAILY #30 tablet. 12/01/16 Lisinopril [Zestril] 5 mg PO DAILY #30 tablet 12/01/16 Amantadine [Symmetrel] 100 mg PO BID #30 capsule 12/25/16 Propranolol [Inderal] 20 mg PO BID #60 tablet 12/25/16 Ketoconazole Shampoo [Nizoral 1 appl TP 2XW bottle 01/21/17 Shampoo] Oxymetazoline [Afrin] 1 spray NS Q12HR PRN #0 bottle 01/21/17 Lisinopril [Zestril] 5 mg PO DAILY tablet 03/29/17 Propranolol [Inderal] 10 mg PO BID tablet 03/29/17 Quetiapine Fumarate [Seroquel] 100 mg PO QAM #30 tablet 03/29/17 Quetiapine Fumarate [Seroquel] 150 mg PO HS #30 tablet 03/29/17 Allergies Allergy/AdvReac Type Severity Reaction Status Date / Time No Known Allergies Allergy Verified 11/22/16 20:45 Limitations: ROS unobtainable due to patients medical condition Past Medical History - Past Medical History Attestation: Yes The following information was validated with the patient. Source: patient Medical history: Reports: hyperlipidemia, hypertension, seizures, other Surgical history: Reports: appendectomy, arthroscopy Psychiatric history: Reports: schizophrenia, previous psychiatric hospitalization - Social History Smoking Status: Current every day smoker Smokeless Tobacco Status: No Alcohol use: Reports: heavy Drug use: Reports: marijuana Physical Exam - General Limitations: no limitations General appearance: alert, in no apparent distress - Head Head exam: atraumatic, normocephalic, normal inspection - Eye Eye exam: Present: normal appearance, PERRL, EOMI - ENT ENT exam: normal exam, normal oropharynx, mucous membranes moist - Neck Neck exam: Present: normal inspection, full ROM, trachea midline - Chest Chest inspection: Present: normal inspection, symmetric chest wall rise - Respiratory Respiratory exam: Present: normal lung sounds bilaterally - Cardiovascular Cardiovascular exam: Present: regular rate, tachycardia - Abdominal Exam Abdominal exam: Present: soft, Non-Tender. Absent: tenderness, distention, guarding, rebound, rigidity - Extremities Exam Extremities exam: Present: normal inspection, full ROM. Absent: tenderness, pedal edema - Back Exam Back exam: Present: normal inspection, full ROM. Absent: tenderness - Neurological Exam Neurological exam: Present: alert - Psychiatric Psychiatric exam: Present: normal affect, normal mood - Skin Skin exam: Present: warm, dry, intact, normal color Course Course Narrative: Patient seen and examined. Patient has been hearing voices as well as seeing things that are telling him that they are out to get him. Patient was just seen here last week. Patient very withdrawn and minimally answers questions. He nods and shakes his head no to this is inconsistent. Review of systems was difficult to obtain. On exam, he was tachycardic. Vital signs otherwise unremarkable. We will medically clear and then have psychiatric evaluation. - Reevaluation(s) Reevaluation #1: Patient's labwork unremarkable. Patient cleared for psychiatric evaluation. Patient was evaluated by psychiatry and accepted for admission. Time: 18:24 Vital Signs Temperature 98.9 F 05/03/17 13:05 Pulse Rate 114 05/03/17 13:05 Respiratory Rate 16 05/03/17 13:05 Blood Pressure 127/77 05/03/17 13:05 O2 Sat by Pulse Oximetry 97 05/03/17 13:05 Temperature 98.9 F 05/03/17 13:05 Pulse Rate 114 05/03/17 13:05 Respiratory Rate 0 05/03/17 18:24 Blood Pressure 0/0 05/03/17 18:24 O2 Sat by Pulse Oximetry 97 05/03/17 13:05 Oxygen Delivery Oxygen Delivery Room Air Psych - Medical Records Medical records reviewed: Yes I reviewed the patient's medical records. - Lab Data Lab results reviewed: Yes I reviewed the patient's lab results. Result diagrams: 05/03/17 13:24 05/03/17 13:24 Lab Results 05/03/17 05/03/17 05/03/17 Range/Units 13:24 13:24 13:49 WBC 10.4 (4.3-11.1) K/mcL RBC 5.11 (4.19-5.50) M/mcL Hgb 15.4 (12.9-16.9) g/dL Hct 46.0 (37.5-50.1) % MCV 90.0 (83.0-100.0) fL MCH 30.1 (28.0-33.3) pg MCHC 33.5 (31.6-35.5) g/dL RDW 12.8 (11.5-14.5) % Plt Count 264 (140-400) K/mcL MPV 11.3 (9.4-12.4) fL Immature Gran % 0.4 (0-4) % Seg Neutrophils % 65.2 % Lymphocytes % 23.9 % Monocytes % 9.1 % Eosinophils % 1.1 % Basophils % 0.3 % Neutrophils # 6.8 (1.6-8.9) K/mcL Lymphocytes # 2.5 (0.6-4.6) K/mcL Monocytes # 1.0 (0.0-1.3) K/mcL Eosinophils # 0.1 (0.0-0.6) K/mcL Basophils # 0.0 (0.0-0.2) K/mcL Sodium 139 (136-145) mEq/L Potassium 4.0 (3.5-4.5) mEq/L Chloride 105 (98-109) mEq/L Carbon Dioxide 23 (19-29) mEq/L BUN 20 (8-26) mg/dL Creatinine 1.04 (0.72-1.25) mg/dL Est GFR ( Amer) > 60 (> 60) Est GFR (Non-Af Amer) > 60 (> 60) BUN/Creatinine Ratio 19 (6-26) Glucose 89 (70-99) mg/dL Calculated Osmolality 290 (280-300) Calcium 9.7 (8.6-10.8) mg/dL Urine Color Yellow (Yellow) Urine Clarity Clear (Clear) Urine pH 5.5 (5.0-8.0) pH Units Ur Specific [place] > 1.030 H (1.010-1.025) Urine Protein Negative (Neg-Trace) mg/dL Urine Glucose (UA) Normal (Normal) mg/dL Urine Ketones 40 H (Negative) mg/dL Urine Blood Negative (Negative) Urine Nitrite Negative (Negative) Urine Bilirubin Small H (Negative) Urine Urobilinogen Normal (Normal) mg/dL Ur Leukocyte Esterase Small H (Negative) Urine Microscopic RBC 0-3 (0-3) per hpf Urine Microscopic WBC 5-15 H (0-3) per hpf Ur Squamous Epith Cells Many H (None-Few) per lpf Urine Bacteria None Seen (None-Few) per hpf Hyaline Casts None Seen (None-Few) per lpf Salicylates < 5.0 L (15-30) mg/dL Urine Opiates Screen (Ifqrwq=784) ng/mL Acetaminophen < 1.0 L (10-30) mcg/mL Ur Barbiturates Screen (Yftugr=999) ng/mL Ur Phencyclidine Scrn (Cutoff=25) ng/mL Ur Amphetamines Screen (Ljlhbj=0782) ng/mL U Benzodiazepines Scrn (Dweavo=441) ng/mL Urine Cocaine Screen (Cutoff= 300) ng/mL U Marijuana (THC) Screen (Cutoff = 50) ng/mL Ethyl Alcohol < 10 (0-10) mg/dL 05/03/17 Range/Units 13:49 WBC (4.3-11.1) K/mcL RBC (4.19-5.50) M/mcL Hgb (12.9-16.9) g/dL Hct (37.5-50.1) % MCV (83.0-100.0) fL MCH (28.0-33.3) pg MCHC (31.6-35.5) g/dL RDW (11.5-14.5) % Plt Count (140-400) K/mcL MPV (9.4-12.4) fL Immature Gran % (0-4) % Seg Neutrophils % % Lymphocytes % % Monocytes % % Eosinophils % % Basophils % % Neutrophils # (1.6-8.9) K/mcL Lymphocytes # (0.6-4.6) K/mcL Monocytes # (0.0-1.3) K/mcL Eosinophils # (0.0-0.6) K/mcL Basophils # (0.0-0.2) K/mcL Sodium (136-145) mEq/L Potassium (3.5-4.5) mEq/L Chloride (98-109) mEq/L Carbon Dioxide (19-29) mEq/L BUN (8-26) mg/dL Creatinine (0.72-1.25) mg/dL Est GFR ( Amer) (> 60) Est GFR (Non-Af Amer) (> 60) BUN/Creatinine Ratio (6-26) Glucose (70-99) mg/dL Calculated Osmolality (280-300) Calcium (8.6-10.8) mg/dL Urine Color (Yellow) Urine Clarity (Clear) Urine pH (5.0-8.0) pH Units Ur Specific [place] (1.010-1.025) Urine Protein (Neg-Trace) mg/dL Urine Glucose (UA) (Normal) mg/dL Urine Ketones (Negative) mg/dL Urine Blood (Negative) Urine Nitrite (Negative) Urine Bilirubin (Negative) Urine Urobilinogen (Normal) mg/dL Ur Leukocyte Esterase (Negative) Urine Microscopic RBC (0-3) per hpf Urine Microscopic WBC (0-3) per hpf Ur Squamous Epith Cells (None-Few) per lpf Urine Bacteria (None-Few) per hpf Hyaline Casts (None-Few) per lpf Salicylates (15-30) mg/dL Urine Opiates Screen Negative (Jzajcs=468) ng/mL Acetaminophen (10-30) mcg/mL Ur Barbiturates Screen Negative (Ewqqex=029) ng/mL Ur Phencyclidine Scrn Negative (Cutoff=25) ng/mL Ur Amphetamines Screen Negative (Cwakqz=2024) ng/mL U Benzodiazepines Scrn Negative (Wtdssa=706) ng/mL Urine Cocaine Screen Negative (Cutoff= 300) ng/mL U Marijuana (THC) Screen Negative (Cutoff = 50) ng/mL Ethyl Alcohol (0-10) mg/dL Psychiatric Medical Clearance - Medical Clearance Checklist Does the patient have a NEW psychiatric condition?: No Any abnormalities indicating possible medical illness?: No Any history of medical issues?: No Medical History: No Social History Section defined Any abnormal vital signs prior to transfer?: No Current Vitals: Last Vital Signs Temp 98.9 F 05/03/17 13:05 Pulse 114 05/03/17 13:05 Resp 0 05/03/17 18:24 BP 0/0 05/03/17 18:24 Pulse Ox 97 05/03/17 13:05 Is the patient intoxicated or cognitively impaired?: No Psychiatric Lab Panel: Drug Levels and Toxicity 05/03/17 05/03/17 13:24 13:49 Urine Opiates Screen Negative Acetaminophen < 1.0 L Ur Barbiturates Screen Negative Ur Phencyclidine Scrn Negative Ur Amphetamines Screen Negative U Benzodiazepines Scrn Negative Urine Cocaine Screen Negative U Marijuana (THC) Screen Negative Ethyl Alcohol < 10 Any abnormalities on the physical exam?: No Any abnormal labs?: No Abnormal Labs: Abnormal lab results Ur Specific [place] > 1.030 (1.010-1.025) H 05/03/17 13:49 Urine Ketones 40 mg/dL (Negative) H 05/03/17 13:49 Urine Bilirubin Small (Negative) H 05/03/17 13:49 Ur Leukocyte Esterase Small (Negative) H 05/03/17 13:49 Urine Microscopic WBC 5-15 per hpf (0-3) H 05/03/17 13:49 Ur Squamous Epith Cells Many per lpf (None-Few) H 05/03/17 13:49 Salicylates < 5.0 mg/dL (15-30) L 05/03/17 13:24 Acetaminophen < 1.0 mcg/mL (10-30) L 05/03/17 13:24 Does the patient require durable medical equiptment?: No Is the patient ambulatory?: Yes Is the patient a fall risk?: No Has the patient been medically cleared?: Yes Any acute medical condition require Tx prior to transfer?: No Statement of Medical Clearance: I have evaluated the patient, reviewed diagnostic information, and certify that the patient's medical condition is sufficiently stable that transfer to the psychiatric unit does not pose a significant risk of deterioration.
[2017-05-03 14:00] LABS: Basophils % 0.3 %; Eosinophils # 0.1 K/mcL (0.0-0.6); Eosinophils % 1.1 %; Hemoglobin 15.4 g/dL (12.9-16.9); Immature Granulocytes % 0.4 % (0-4); Lymphocytes # 2.5 K/mcL (0.6-4.6); Lymphocytes % 23.9 %; Mean Corpuscular HGB Conc 33.5 g/dL (31.6-35.5); Mean Corpuscular Hemoglobin 30.1 pg (28.0-33.3); Mean Platelet Volume 11.3 fL (9.4-12.4); Monocytes % 9.1 %; Neutrophils # 6.8 K/mcL (1.6-8.9); Platelet Count 264 K/mcL (140-400); Red Blood Count 5.11 M/mcL (4.19-5.50); Red Cell Distribution Width 12.8 % (11.5-14.5); Segmented Neutrophils % 65.2 %
[2017-05-03 14:01] LABS: Bilirubin,Urine Small (Negative); Blood,Urine Negative (Negative); Clarity,Urine Clear (Clear); Color,Urine Yellow (Yellow); Glucose,Urine (UA) Normal (Normal); Ketones,Urine 40 mg/dL (Negative); Leukocyte Esterase,Urine Small (Negative); Nitrite,Urine Negative (Negative); PH,Urine 5.5 pH Units (5.0-8.0); Protein,Urine Negative (Neg-Trace); Specific Gravity,Urine > 1.030 (1.010-1.025); Urobilinogen,Urine Normal (Normal)
[2017-05-03 14:03] LABS: Bacteria,Urine None Seen per hpf (None-Few); Hyaline Casts,Urine None Seen per lpf (None-Few); RBC,Urine 0-3 per hpf (0-3); Squamous Epithelial Cell,Urine Many per lpf (None-Few)
[2017-05-03 14:05] LABS: Amphetamine Screen,Urine Negative ng/mL (Cutoff=1000); Barbiturate Screen,Urine Negative ng/mL (Cutoff=200); Benzodiazepines Screen,Urine Negative ng/mL (Cutoff=200); Cannabinoid Screen,Urine Negative ng/mL (Cutoff = 50); Cocaine Screen,Urine Negative ng/mL (Cutoff= 300); Opiate Screen,Urine Negative ng/mL (Cutoff=300); Phencyclidine Screen,Urine Negative ng/mL (Cutoff=25)
[2017-05-03 14:16] LABS: BUN/Creatinine Ratio 19 (6-26); Blood Urea Nitrogen 20 mg/dL (8-26); Calcium 9.7 mg/dL (8.6-10.8); Carbon Dioxide 23 mEq/L (19-29); Chloride 105 mEq/L (98-109); Glucose 89 mg/dL (70-99); Osmolality,Calculated 290 (280-300); Sodium 139 mEq/L (136-145); eGFR For African Americans > 60 (> 60); eGFR For Non-African Americans > 60 (> 60)
[2017-05-03 14:18] LABS: Acetaminophen < 1.0 mcg/mL (10-30); Ethanol < 10 mg/dL (0-10); Salicylate < 5.0 mg/dL (15-30)
[2017-05-03] MEDS ORDERED: Haloperidol Lactate 5 MG/ML VIAL IM PRN ×2 (18:41→18:52)
[2017-05-03] MEDS ORDERED: MOM Conc 10 ML UD.LIQ PO PRN (18:41)
[2017-05-03] MEDS ORDERED: Mag Hydrox/Al Hydrox/Simeth 30 ML UDC PO PRN (18:41)
[2017-05-03] MEDS ORDERED: *HR* LORazepam 2 MG/ML VIAL IM PRN ×3 (18:41→19:04)
[2017-05-03] MEDS ORDERED: *HR* LORazepam 1 MG TABLET PO PRN (18:58)
[2017-05-03] MEDS ORDERED: OLANZapine 10 MG TAB.RAPDIS PO ONE (22:20)
[2017-05-03] MEDS: Ibuprofen 400 MG TABLET PO PRN (22:35)
[2017-05-03] MEDS: hydrOXYzine pamoate 25 MG CAPSULE PO PRN (22:35)
[2017-05-03] MEDS: traZODone 50 MG TABLET PO PRN (22:35)
--- NOTE | 2017-05-04 11:41 | Psychiatry History & Physical ---
Date of Encounter: 05/04/17 Time of Encounter: 09:05 History of Present Illness Patient Stated Chief Complaint: "I hear stuff." Medicare Admission Attestation: For traditional Medicare patients the provided hospital inpatient services are reasonable and necessary and in the case of services not specified as inpatient -only under 42 CFR 419.22 (n), that they are appropriately provided as inpatient services in accordance 42 CFR 412.3. For Critical Access Hospital the patient may reasonably be expected to be discharged or transferred to a hospital within 96 hours after admission to the [facility]. Admitted From: Emergency Dept Plans for Post Hospital Care: Home History of Present Illness: Mr. Miller is a 36 year old male with a long-standing history of psychosis, noncompliance, borderline intellectual functioning, substance abuse who presents today after coming to the ER with increasing auditory hallucinations. Patient reported to staff that he heard the voice of the devil and "Jonathan" telling him that they are out to get him and that someone will "smite him." Patient did receive when necessary medication last night which helped him sleep. Today he is somewhat groggy. He denies recent drug use and urine tox is negative. Patient has a history of multiple admissions mainly because he stopped taking his medications and becomes more agitated. That point family kicks him out of the home. He sometimes uses drugs and drinks alcohol which exacerbates his mental health issues. Patient has still his own medical decision maker at this time but has multiple psychiatric admissions in the past year. He continues to report auditory hallucinations. Some thought blocking during the interview. Past Med Surg Social Fam HX - Past Medical History Medical history: hyperlipidemia, hypertension, seizures, other - Past Psychiatric History Psychiatric history: Reports: schizophrenia, previous psychiatric hospitalization Past psychiatric history details: Patient has long-standing history of schizophrenia. He has been on multiple antipsychotics. He reported to outpatient providers that one of the medications he tried he stopped because of increased muscle tension. Family psychiatric history: Yes Family Psychiatric History Details: Father had bipolar disorder. Family History of Suicide: None - Past Surgical History Surgical History: appendectomy, arthroscopy - Social History Smoking Status: Current every day smoker Smokeless Tobacco Status: No Alcohol use: heavy Drug use: marijuana Occupational status: disabled Current living situation: Homeless Activity Level: Independent ambulation - Family History Father Hx Family Cardiac Disorders: Yes Medications & Allergies TraZODone 50 mg PO HS PRN #30 tablet 07/14/16 [Rx] Aspirin [Ecotrin] 325 mg PO DAILY #30 tablet. 12/01/16 [Rx] Lisinopril [Zestril] 5 mg PO DAILY #30 tablet 12/01/16 [Rx] Amantadine [Symmetrel] 100 mg PO BID #30 capsule 12/25/16 [Rx] Propranolol [Inderal] 20 mg PO BID #60 tablet 12/25/16 [Rx] Ketoconazole Shampoo [Nizoral Shampoo] 1 appl TP 2XW bottle 01/21/17 [Rx] Oxymetazoline [Afrin] 1 spray NS Q12HR PRN #0 bottle 01/21/17 [Rx] Lisinopril [Zestril] 5 mg PO DAILY tablet 03/29/17 [Rx] Propranolol [Inderal] 10 mg PO BID tablet 03/29/17 [Rx] Quetiapine Fumarate [Seroquel] 100 mg PO QAM #30 tablet 03/29/17 [Rx] Quetiapine Fumarate [Seroquel] 150 mg PO HS #30 tablet 03/29/17 [Rx] Allergies No Known Allergies Allergy (Verified 11/22/16 20:45) Review of Systems ROS limited: due to patient condition Gastrointestinal: Denies: abdominal pain, nausea, vomiting, diarrhea, constipation Musculoskeletal: Denies: joint swelling, joint pain Neurological: Denies: headache Psychiatric: Reports: abnormal sleep pattern, auditory hallucinations, difficulty concentrating, irritability Endocrine: Denies: fatigue Mental Status Exam Patient orientation: Yes Person, No Time, Yes Place Level of alertness: Alert Patient appearance: Disheveled, Malodorous Behavior: cooperative, guarded Psychomotor activity: Slowed Eye contact: Diverts Contact Mood description: Euthymic/stable Affect description: flat Speech pattern: Slowed Speech volume: Normal Thought process: Thought Blocking Thought content: Yes Paranoid delusion Perceptual disturbances: Yes Reacting to internal stimuli, Yes Auditory hallucinations, No Visual hallucinations Attention span: Unable to Focus Memory description: Immediate Impaired, Recent Impaired, Remote Impaired Patient reliability: Not Reliable Historian Intelligence estimate: Below Average Judgment: Poor Insight: Minimal Exam - HEENT Head exam IM: Present: atraumatic Eye exam IM: Present: EOMI - Neurological Neurological exam IM: Present: CN II-XII intact - Extremities Extremities exam IM: Present: full ROM - Skin Skin exam IM: Present: dry, warm Results - Vital Signs Vital signs: Temp Pulse Resp BP Pulse Ox 97 F L 77 16 126/82 97 05/04/17 09:00 05/04/17 09:00 05/04/17 09:00 05/04/17 09:00 05/03/17 13:05 - Labs Labs: Laboratory Last Values WBC 10.4 K/mcL (4.3-11.1) 05/03/17 13:24 RBC 5.11 M/mcL (4.19-5.50) 05/03/17 13:24 Hgb 15.4 g/dL (12.9-16.9) 05/03/17 13:24 Hct 46.0 % (37.5-50.1) 05/03/17 13:24 MCV 90.0 fL (83.0-100.0) 05/03/17 13:24 MCH 30.1 pg (28.0-33.3) 05/03/17 13:24 MCHC 33.5 g/dL (31.6-35.5) 05/03/17 13:24 RDW 12.8 % (11.5-14.5) 05/03/17 13:24 Plt Count 264 K/mcL (140-400) 05/03/17 13:24 MPV 11.3 fL (9.4-12.4) 05/03/17 13:24 Immature Gran % 0.4 % (0-4) 05/03/17 13:24 Seg Neutrophils % 65.2 % 05/03/17 13:24 Lymphocytes % 23.9 % 05/03/17 13:24 Monocytes % 9.1 % 05/03/17 13:24 Eosinophils % 1.1 % 05/03/17 13:24 Basophils % 0.3 % 05/03/17 13:24 Neutrophils # 6.8 K/mcL (1.6-8.9) 05/03/17 13:24 Lymphocytes # 2.5 K/mcL (0.6-4.6) 05/03/17 13:24 Monocytes # 1.0 K/mcL (0.0-1.3) 05/03/17 13:24 Eosinophils # 0.1 K/mcL (0.0-0.6) 05/03/17 13:24 Basophils # 0.0 K/mcL (0.0-0.2) 05/03/17 13:24 Sodium 139 mEq/L (136-145) 05/03/17 13:24 Potassium 4.0 mEq/L (3.5-4.5) 05/03/17 13:24 Chloride 105 mEq/L (98-109) 05/03/17 13:24 Carbon Dioxide 23 mEq/L (19-29) 05/03/17 13:24 BUN 20 mg/dL (8-26) 05/03/17 13:24 Creatinine 1.04 mg/dL (0.72-1.25) 05/03/17 13:24 Est GFR ( Amer) > 60 (> 60) 05/03/17 13:24 Est GFR (Non-Af Amer) > 60 (> 60) 05/03/17 13:24 BUN/Creatinine Ratio 19 (6-26) 05/03/17 13:24 Glucose 89 mg/dL (70-99) 05/03/17 13:24 Calculated Osmolality 290 (280-300) 05/03/17 13:24 Calcium 9.7 mg/dL (8.6-10.8) 05/03/17 13:24 Urine Color Yellow (Yellow) 05/03/17 13:49 Urine Clarity Clear (Clear) 05/03/17 13:49 Urine pH 5.5 pH Units (5.0-8.0) 05/03/17 13:49 Ur Specific [place] > 1.030 (1.010-1.025) H 05/03/17 13:49 Urine Protein Negative mg/dL (Neg-Trace) 05/03/17 13:49 Urine Glucose (UA) Normal mg/dL (Normal) 05/03/17 13:49 Urine Ketones 40 mg/dL (Negative) H 05/03/17 13:49 Urine Blood Negative (Negative) 05/03/17 13:49 Urine Nitrite Negative (Negative) 05/03/17 13:49 Urine Bilirubin Small (Negative) H 05/03/17 13:49 Urine Urobilinogen Normal mg/dL (Normal) 05/03/17 13:49 Ur Leukocyte Esterase Small (Negative) H 05/03/17 13:49 Urine Microscopic RBC 0-3 per hpf (0-3) 05/03/17 13:49 Urine Microscopic WBC 5-15 per hpf (0-3) H 05/03/17 13:49 Ur Squamous Epith Cells Many per lpf (None-Few) H 05/03/17 13:49 Urine Bacteria None Seen per hpf (None-Few) 05/03/17 13:49 Hyaline Casts None Seen per lpf (None-Few) 05/03/17 13:49 Salicylates < 5.0 mg/dL (15-30) L 05/03/17 13:24 Urine Opiates Screen Negative ng/mL (Ldugcd=574) 05/03/17 13:49 Acetaminophen < 1.0 mcg/mL (10-30) L 05/03/17 13:24 Ur Barbiturates Screen Negative ng/mL (Lcqsyc=054) 05/03/17 13:49 Ur Phencyclidine Scrn Negative ng/mL (Cutoff=25) 05/03/17 13:49 Ur Amphetamines Screen Negative ng/mL (Sjjmvn=2184) 05/03/17 13:49 U Benzodiazepines Scrn Negative ng/mL (Sbjmhf=176) 05/03/17 13:49 Urine Cocaine Screen Negative ng/mL (Cutoff= 300) 05/03/17 13:49 U Marijuana (THC) Screen Negative ng/mL (Cutoff = 50) 05/03/17 13:49 Ethyl Alcohol < 10 mg/dL (0-10) 05/03/17 13:24 Assessment and Plan (1) Schizophrenia Current visit: No Status: Chronic Plan: Admit inpatient for safety and stabilization, Close observation, Suicide Precautions per unit protocol, Encourage participation in unit milieu, Group Therapy, Monitor sleep, Monitor appetite Additional Plan: We will review past medications. Start Latuda for mood psychosis. Encourage appropriate interaction with peers and staff. Encourage group attendance. Discussed possibility of forced med on outpatient basis versus pursuing guardianship as patient does not seem to have the ability to care for himself or take meds regularly and requires hospitalization frequently. Risks, benefits, side effects, alternatives discussed w/pt: Yes Patient agreeable to treatment: Yes Plans for Post Hospital Care: Home Estimated Length of Stay (Days): 3 Qualifiers: Schizophrenia type: undifferentiated schizophrenia Qualified Code(s): F20.3 - Undifferentiated schizophrenia (2) Borderline intellectual functioning Current visit: Yes Status: Acute Plan: Close observation, Group Therapy
--- NOTE | 2017-05-04 15:23 | Electrocardiograph Report ---
[address] [place] [address] Test Date: 2017-05-03 Pat Name: Troy Miller Department: 103 Room: 1A Gender: M [employer]: : 1980 Requested By: Yadira Wild Order Number: [id number] Reading MD: Kinsey Rodriguez Measurements Intervals [place] Rate: 95 P: NC: 0 QRS: 33 QRSD: 97 T: 18 QT: 373 QTc: 426 Interpretive Statements ATRIAL FIBRILLATION ABNORMAL RHYTHM ECG Electronically Signed On 05-04-2017 15:21:45 EDT by Kinsey Rodriguez
[2017-05-04] MEDS: traZODone 50 MG TABLET PO PRN (21:07)
--- NOTE | 2017-05-05 10:22 | Psychiatry Progress Note ---
Date of Encounter: 05/05/17 Time of Encounter: 10:25 Subjective Interval history: Vincent is seen today for follow-up. He reports that his hallucinations have decreased. He does remain withdrawn to his room and laying in bed. He is very disheveled and does not appear to be caring for his hygiene. He denies feeling agitated or scaring this time. He denies side effects of the Latuda. Review of Systems Psychiatric: Reports: abnormal sleep pattern, auditory hallucinations, difficulty concentrating, irritability Objective: Exam Patient orientation: Yes Person, Yes Place Patient appearance: Disheveled, Malodorous Behavior: withdrawn Psychomotor activity: Slowed Eye contact: Diverts Contact Mood description: Euthymic/stable Affect description: blunted Speech pattern: Slowed, Rambling Speech volume: Normal Thought process: [place] Thought content: No Suicidal ideation, No Homicidal ideation Perceptual disturbances: No Reacting to internal stimuli, No Auditory hallucinations Judgment: Limited Insight: Minimal Results - Vital Signs Vital Signs: Temp Pulse Resp BP Pulse Ox 98.0 F 87 14 137/87 97 05/05/17 08:48 05/05/17 08:48 05/05/17 08:48 05/05/17 08:48 05/03/17 13:05 Assessment and Plan (1) Schizophrenia Current visit: No Status: Chronic Plan: Continue hospitalization, Close observation, Suicide Precautions per unit protocol, Encourage participation in unit milieu, Group Therapy, Monitor sleep, Monitor appetite Additional Plan: Continue to monitor patient for psychotic symptoms. He is showing a significant improvement in his symptoms with the Latuda. We will increase to 80 mg by mouth daily at bedtime. Monitor to see if medication causes issues with sleep. We will try to correlate with outpatient provider to get patient and guardian as he does not appear to be able to care for himself when he needs the hospital. 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
[2017-05-05] MEDS: hydrOXYzine pamoate 25 MG CAPSULE PO PRN (11:44)
[2017-05-05] MEDS: Ibuprofen 400 MG TABLET PO PRN ×2 (11:44→20:24)
[2017-05-05] MEDS: Nicotine 2 MG GUM BC PRN (15:58)
[2017-05-05] MEDS: traZODone 50 MG TABLET PO PRN (20:24)
[2017-05-06] MEDS: Ibuprofen 400 MG TABLET PO PRN ×2 (08:49→16:25)
[2017-05-06] MEDS: hydrOXYzine pamoate 25 MG CAPSULE PO PRN ×2 (08:49→16:25)
--- NOTE | 2017-05-06 14:01 | Psychiatry Progress Note ---
Date of Encounter: 05/06/17 Time of Encounter: 12:00 Subjective Interval history: Patient seen today for follow-up. Discussed in treatment team. He again denies auditory hallucinations. Has been seen responding to internal stimuli by staff but this is less frequent. He is showering. He is more interactive today than yesterday. Appears to be sleeping well. Patient would like to go home so he can help pay the bills. Review of Systems ROS limited: due to patient condition Psychiatric: Reports: auditory hallucinations, difficulty concentrating, irritability Objective: Exam Patient orientation: Yes Person, Yes Circumstance Level of alertness: Alert Patient appearance: Unkempt Behavior: calm Psychomotor activity: Normal Eye contact: Maintains Eye Contact Mood description: Euthymic/stable Affect description: flat Speech pattern: Slowed Speech volume: Normal Thought process: [place], Slowed Thinking Thought content: No Suicidal ideation, No Homicidal ideation, No Overt delusions Perceptual disturbances: Yes Reacting to internal stimuli, No Auditory hallucinations, No Visual hallucinations Judgment: Limited Insight: Minimal Results - Vital Signs Vital Signs: Temp Pulse Resp BP Pulse Ox 97.4 F L 71 16 126/86 97 05/06/17 08:15 05/06/17 08:15 05/06/17 08:15 05/06/17 08:15 05/03/17 13:05 Assessment and Plan (1) Schizophrenia Current visit: No Status: Chronic Plan: Continue hospitalization, Close observation, Suicide Precautions per unit protocol, Encourage participation in unit milieu, Group Therapy, Monitor sleep, Monitor appetite Additional Plan: Continue Latuda. Plan for DC tomorrow patient if continues to improve. We will fill guardianship paperwork out for outpatient caregiver to continue process. 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
[2017-05-06] MEDS: traZODone 50 MG TABLET PO PRN (21:06)
[2017-05-07] MEDS: Ibuprofen 400 MG TABLET PO PRN (10:25)
[2017-05-07] MEDS: hydrOXYzine pamoate 25 MG CAPSULE PO PRN ×2 (10:25→14:22)
--- NOTE | 2017-05-07 11:33 | Psychiatry Progress Note ---
Date of Encounter: 05/07/17 Time of Encounter: 10:00 Subjective Interval history: Xander is seen today for follow-up. He states his delusions and hallucinations are better. Staff continues to see him responding to internal stimuli in the hallways. He "showers" several times a day but does not appear to be using soap. Patient remains disheveled. He is concerned about being able to pay the bills but is also willing to stay in the hospital until his meds are appropriately titrated. He has only minimal understanding of what the medications are doing for him. He denies sleep issues at this time. Some increased irritability today and yesterday. Review of Systems Psychiatric: Reports: auditory hallucinations, difficulty concentrating, irritability Objective: Exam Patient orientation: Yes Person, Yes Place Level of alertness: Alert Patient appearance: Unkempt, Disheveled Behavior: restless Psychomotor activity: Normal Eye contact: Diverts Contact Mood description: Euthymic/stable Affect description: blunted Speech pattern: Slowed, Garbled Speech volume: Normal Thought process: [place], Slowed Thinking Thought content: No Suicidal ideation, No Homicidal ideation Perceptual disturbances: Yes Reacting to internal stimuli, No Auditory hallucinations, No Visual hallucinations Judgment: Poor Insight: Minimal Results - Vital Signs Vital Signs: Temp Pulse Resp BP Pulse Ox 97.5 F L 85 16 122/88 97 05/07/17 08:33 05/07/17 08:33 05/07/17 08:33 05/07/17 08:33 05/03/17 13:05 Assessment and Plan (1) Schizophrenia Current visit: No Status: Chronic Plan: Continue hospitalization, Close observation, Suicide Precautions per unit protocol, Encourage participation in unit milieu, Group Therapy, Monitor sleep, Monitor appetite Additional Plan: Increase Latuda. Continue to monitor patient for psychosis. Guardianship paperwork filled out. We will attempt to coordinate appropriate and safe discharge plan for patient when he is stable. 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 You will also see Sherry Andrade CNP, for outpatient psychiatric assessment and medication management services on 05/21/2017 at 9:30 AM.)
[2017-05-07] MEDS: Acetaminophen 325 MG TABLET PO PRN ×2 (14:21→23:08)
[2017-05-07] MEDS ORDERED: *HR* LORazepam 1 MG TABLET PO ONE (17:05)
[2017-05-07] MEDS ORDERED: traMADol 50 MG TABLET PO STA (18:17)
[2017-05-07] MEDS: traZODone 50 MG TABLET PO PRN (23:06)
--- NOTE | 2017-05-08 12:32 | Psychiatry Progress Note ---
Date of Encounter: 05/08/17 Time of Encounter: 12:00 Subjective Interval history: Vincent is seen today for follow-up. He reports that he is feeling a little bit better today. He did have a headache yesterday that was relieved by one 50 mg tablet tramadol. He feels Latuda is working for him. He does report intermittent auditory hallucinations but these have lessened. Staff has been witnessing some self talk with patient and hallway. He continues to shower without actually using soap several times a day. No mention of hindu delusions today. Review of Systems Psychiatric: Reports: auditory hallucinations, difficulty concentrating, irritability Objective: Exam Patient orientation: Yes Person, Yes Place Level of alertness: Alert Patient appearance: Unkempt Behavior: calm, cooperative Psychomotor activity: Slowed Eye contact: Maintains Eye Contact Mood description: Euthymic/stable Affect description: blunted Speech pattern: Slowed, Garbled Speech volume: Soft/Quiet Thought process: [place] Thought content: No Suicidal ideation, No Homicidal ideation Perceptual disturbances: Yes Reacting to internal stimuli, Yes Auditory hallucinations Judgment: Limited Insight: Minimal Results - Vital Signs Vital Signs: Temp Pulse Resp BP Pulse Ox 98.1 F 94 20 122/86 97 05/08/17 09:00 05/08/17 09:00 05/08/17 09:00 05/08/17 09:00 05/03/17 13:05 Assessment and Plan (1) Schizophrenia Current visit: No Status: Chronic Plan: Continue hospitalization, Close observation, Suicide Precautions per unit protocol, Encourage participation in unit milieu, Group Therapy, Monitor sleep, Monitor appetite Additional Plan: Continue current meds. Continue to monitor behavior. Encourage group and interaction with peers. 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 You will also see Sherry Andrade CNP, for outpatient psychiatric assessment and medication management services on 05/21/2017 at 9:30 AM.)
[2017-05-08] MEDS: Ibuprofen 400 MG TABLET PO PRN (14:54)
[2017-05-08] MEDS: hydrOXYzine pamoate 25 MG CAPSULE PO PRN (14:54)
[2017-05-08] MEDS: traZODone 50 MG TABLET PO PRN (20:57)
[2017-05-09] MEDS: Ibuprofen 400 MG TABLET PO PRN ×2 (09:17→16:20)
[2017-05-09] MEDS: hydrOXYzine pamoate 25 MG CAPSULE PO PRN ×2 (09:18→16:21)
--- NOTE | 2017-05-09 12:29 | Psychiatry Progress Note ---
Date of Encounter: 05/09/17 Time of Encounter: 13:40 Subjective Interval history: Xander denies side effects of current meds. He reports auditory hallucinations have improved. Staff has noticed some improvement in patient's affect and organization as well. He would like to return home to his family. Encouraged possibly going to [place] for short amount of time prior to the home. Interacting somewhat with peers and staff and watching movies. Review of Systems Psychiatric: Reports: difficulty concentrating, irritability Objective: Exam Patient orientation: Yes Person Level of alertness: Alert Patient appearance: Unkempt Behavior: calm Psychomotor activity: Slowed Eye contact: Maintains Eye Contact Mood description: Euthymic/stable Affect description: blunted Speech pattern: Slowed Speech volume: Normal Thought process: [place] Thought content: No Suicidal ideation, No Homicidal ideation Perceptual disturbances: No Auditory hallucinations, No Visual hallucinations Judgment: Limited Insight: Partial Results - Vital Signs Vital Signs: Temp Pulse Resp BP Pulse Ox 97.2 F L 59 16 108/73 97 05/09/17 09:00 05/09/17 09:00 05/09/17 09:00 05/09/17 09:00 05/03/17 13:05 Assessment and Plan (1) Schizophrenia Current visit: No Status: Chronic Plan: Continue hospitalization, Close observation, Suicide Precautions per unit protocol, Encourage participation in unit milieu, Group Therapy, Monitor sleep, Monitor appetite Additional Plan: Patient is tolerating the Latuda. He is more interactive with staff and less irritable. He does not appear to be responding to internal stimuli. Plan for discharge early next week if patient continues to improve. Risks, benefits, side effects, alternatives discussed w/pt: Yes Patient agreeable to treatment: Yes Qualifiers: Schizophrenia type: undifferentiated schizophrenia Qualified Code(s): F20.3 - Undifferentiated schizophrenia (2) Borderline intellectual functioning Current visit: Yes Status: Acute Consult Discharge Plan - Plan Referrals: [facility] [Outside] - 05/13/17 10:00 am (The above appointment is with Jill Jackson for mental health counseling. You will also see Sherry Andrade CNP, for outpatient psychiatric assessment and medication management services on 05/21/2017 at 9:30 AM.)
[2017-05-09] MEDS: Nicotine 2 MG GUM BC PRN (17:52)
[2017-05-09] MEDS: traZODone 50 MG TABLET PO PRN (20:43)
[2017-05-10] MEDS: hydrOXYzine pamoate 25 MG CAPSULE PO PRN (09:29)
[2017-05-10] MEDS: Ibuprofen 400 MG TABLET PO PRN ×2 (09:30→19:20)
--- NOTE | 2017-05-10 11:53 | Psychiatry Progress Note ---
Date of Encounter: 05/10/17 Time of Encounter: 11:51 Subjective Interval history: Patient seen and case discussed with team , compliant and more interactive. as per Mr Kaur he is still hearing voices , not commanding, has improved not as much as before. paranoia still present. sleep is good, appetite is good. denies side effects. Review of Systems Psychiatric: Reports: auditory hallucinations, difficulty concentrating Objective: Exam Patient orientation: Yes Person, Yes Time, Yes Place Level of alertness: Alert Patient appearance: Unkempt Behavior: cooperative, anxious Psychomotor activity: Increased Eye contact: Minimal Contact Mood description: Anxious Affect description: blunted Speech pattern: Normal rate, Normal rhythm, Normal tone Speech volume: Normal Thought process: Slowed Thinking Thought content: Yes Preoccupation, Yes Paranoid delusion, Yes Poverty of Content Perceptual disturbances: Yes Auditory hallucinations Judgment: Limited Insight: Partial Results - Vital Signs Vital Signs: Temp Pulse Resp BP Pulse Ox 98.0 F 79 18 121/79 97 05/10/17 09:00 05/10/17 09:00 05/10/17 09:00 05/10/17 09:00 05/03/17 13:05 Assessment and Plan (1) Schizophrenia Current visit: No Status: Chronic Plan: Continue hospitalization, Close observation, Suicide Precautions per unit protocol, Encourage participation in unit milieu, Group Therapy, Monitor sleep, Monitor appetite, Family/Supportive other meeting Risks, benefits, side effects, alternatives discussed w/pt: Yes Patient agreeable to treatment: Yes Qualifiers: Schizophrenia type: undifferentiated schizophrenia Qualified Code(s): 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 You will also see Sherry Andrade CNP, for outpatient psychiatric assessment and medication management services on 05/21/2017 at 9:30 AM.)
[2017-05-10] MEDS: *HR* LORazepam 1 MG TABLET PO PRN ×2 (12:32→17:56)
[2017-05-10] MEDS: Acetaminophen 325 MG TABLET PO PRN (12:33)
[2017-05-10] MEDS: Nicotine 2 MG GUM BC PRN (18:38)
[2017-05-10] MEDS: traZODone 50 MG TABLET PO PRN (21:01)
[2017-05-11] MEDS: hydrOXYzine pamoate 25 MG CAPSULE PO PRN ×2 (10:53→17:19)
[2017-05-11] MEDS: Acetaminophen 325 MG TABLET PO PRN ×2 (10:54→17:19)
[2017-05-11] MEDS ORDERED: Divalproex (12 HR) 250 MG TABLET PO ONE (13:03)
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
[2017-05-11] MEDS: Divalproex (12 HR) 250 MG TABLET PO SCH ×2 (14:19→20:37)
[2017-05-11] MEDS: traZODone 50 MG TABLET PO PRN (20:36)
[2017-05-12] MEDS: Divalproex (12 HR) 250 MG TABLET PO SCH ×2 (08:50→20:56)
--- NOTE | 2017-05-12 10:46 | Psychiatry Progress Note ---
Date of Encounter: 05/12/17 Time of Encounter: 10:42 Subjective Interval history: patient seen today , case discussed with treatment team , he as shown improvement in his psychosis, but has anxiety attacks and takes prn vistaril. states new medicine seems to help me, he is not as restless and he is able to communicate , he was started od depakote and denies any side effects. he is not suicidal , low grade paranoia there, voices as per him has not heard them for 2 days. Review of Systems Psychiatric: Reports: anxiety, difficulty concentrating, irritability, panic attacks Objective: Exam Patient orientation: Yes Person, Yes Place Level of alertness: Alert Patient appearance: Unkempt Behavior: anxious Eye contact: Maintains Eye Contact Mood description: Anxious Affect description: blunted Speech pattern: Normal rhythm, Normal tone, Delayed Speech volume: Normal Thought process: Slowed Thinking Thought content: Yes Paranoid delusion Judgment: Fair Insight: Partial Results - Vital Signs Vital Signs: Temp Pulse Resp BP Pulse Ox 97.4 F L 120 16 109/64 97 05/12/17 09:00 05/12/17 09:00 05/12/17 09:00 05/12/17 09:00 05/03/17 13:05 - Impressions ITS Impressions Hand X-Ray 05/10/17 12:48 IMPRESSION: Soft tissue swelling. No acute osseous abnormality in the right hand. Soft tissue swelling. No acute osseous abnormality in the right wrist. D/ / Farhana Arce MD / Farhana Arce MD Interpreting Provider: Farhana Arce MD Wrist X-Ray 05/10/17 12:48 IMPRESSION: Soft tissue swelling. No acute osseous abnormality in the right hand. Soft tissue swelling. No acute osseous abnormality in the right wrist. 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 [Outside] - 05/13/17 10:00 am (The above appointment is with Jill Jackson for mental health counseling. You will also see Shrery Andrade CNP, for outpatient psychiatric assessment and medication management services on 05/21/2017 at 9:30 AM.)
[2017-05-12] MEDS: hydrOXYzine pamoate 25 MG CAPSULE PO PRN ×2 (12:48→19:59)
[2017-05-12] MEDS: Acetaminophen 325 MG TABLET PO PRN ×2 (12:48→19:59)
[2017-05-12] MEDS: Nicotine 2 MG GUM BC PRN (17:37)
[2017-05-12] MEDS: traZODone 50 MG TABLET PO PRN (20:56)
[2017-05-13] MEDS: Acetaminophen 325 MG TABLET PO PRN (07:12)
[2017-05-13] MEDS: hydrOXYzine pamoate 25 MG CAPSULE PO PRN (07:12)
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
[2017-05-13] MEDS: Divalproex (12 HR) 250 MG TABLET PO SCH (08:43)
[2017-05-13 09:49] VITALS: BP 118/82
== END 2017-05-13 09:30 | disposition home or self-care (01) | DRG 750 ==
LOC: EMEROO 13:03 → 1ANU 17:54 → SUATTDRO 17:54 → 1ANU 18:15
PROVIDERS: ADMIT Student in an Organized Health Care Education/Training Program; ATTEND Psychiatry & Neurology Psychiatry

== ENCOUNTER 2017-06-08 19:00 | Inpatient (IN) ==
--- NOTE | 2017-06-08 19:07 | Emergency Department Note ---
Disposition Clinical Impression: Chronic schizophrenia, Acute psychosis Disposition: Still a Patient Condition: Fair Forms: ED Satisfaction Letter Psych HPI - General Chief Complaint: ED Psychiatric Symptoms Stated Complaint: AUDITORY HALLUCINATIONS Time Seen by Provider: 06/08/17 19:01 Source: patient Mode of arrival: ambulatory Limitations: no limitations Nursing Notes Reviewed: Yes Vital Signs Reviewed: Yes - History of Present Illness HPI Narrative: 36-year-old who states he used meth or crack today drank beer states he's hearing voices. Patient has a history of schizophrenia is on medication. 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 12/01/16 Lisinopril [Zestril] 5 mg PO DAILY #30 tablet 12/01/16 Amantadine [Symmetrel] 100 mg PO BID #30 capsule 12/25/16 Propranolol [Inderal] 20 mg PO BID #60 tablet 12/25/16 Ketoconazole Shampoo [Nizoral 1 appl TP 2XW bottle 01/21/17 Shampoo] Oxymetazoline [Afrin] 1 spray NS Q12HR PRN #0 bottle 01/21/17 Lisinopril [Zestril] 5 mg PO DAILY tablet 03/29/17 Propranolol [Inderal] 10 mg PO BID tablet 03/29/17 Divalproex (12 HR) [Depakote (12 250 mg PO BID #60 05/13/17 HR)] Lurasidone [Latuda] 120 mg PO HS #30 tab 05/13/17 Quetiapine Fumarate [Seroquel] 100 mg PO QAM #30 tablet 05/13/17 Quetiapine Fumarate [Seroquel] 150 mg PO HS #30 tablet 05/13/17 Allergies Allergy/AdvReac Type Severity Reaction Status Date / Time No Known Allergies Allergy Verified 06/01/17 14:51 All systems ED: reviewed and negative except as stated. Constitutional: Denies: fever, chills, weakness, weight change Eyes: Denies: eye pain, eye discharge, vision change ENT ED: Denies: ear pain, throat pain, dental pain, hearing loss, epistaxis, congestion, dysphagia Cardiovascular: Denies: chest pain, palpitations, dyspnea on exertion, edema, syncope Respiratory: Denies: cough, dyspnea, wheezes, hemoptysis, stridor Gastrointestinal: Denies: abdominal pain, nausea, vomiting, diarrhea, constipation, hematemesis, melena, hematochezia Genitourinary: Denies: urgency, dysuria, frequency, hematuria Musculoskeletal: Denies: back pain, neck pain, arthralgia, myalgia Integumentary: Denies: rash, abrasion, lesions Neurological: Reports: headache. Denies: weakness, numbness, paresthesias, confusion, abnormal gait, vertigo Psychiatric: Reports: auditory hallucinations. Denies: anxiety, depression, suicidal thoughts, homicidal thoughts, visual hallucinations Endocrine: Denies: fatigue Hematological/Lymphatic: Denies: easy bleeding, easy bruising Allergic/Immunologic: Denies: facial swelling, urticaria Past Medical History - Past Medical History Medical history: Reports: hyperlipidemia, hypertension, seizures Surgical history: Reports: appendectomy, arthroscopy Psychiatric history: Reports: anxiety, schizophrenia, previous psychiatric hospitalization - Social History Smoking Status: Current every day smoker Smokeless Tobacco Status: No Alcohol use: Reports: heavy Drug use: Reports: marijuana Physical Exam - General Limitations: no limitations General appearance: alert, anxious - Head Head exam: atraumatic, normocephalic, normal inspection - Eye Eye exam: Present: normal appearance, PERRL, EOMI - ENT ENT exam: normal exam, normal oropharynx, mucous membranes moist - Neck Neck exam: Present: normal inspection, full ROM, trachea midline - Chest Chest inspection: Present: normal inspection, symmetric chest wall rise - Respiratory Respiratory exam: Present: normal lung sounds bilaterally - Cardiovascular Cardiovascular exam: Present: regular rate, normal rhythm, normal heart sounds - Abdominal Exam Abdominal exam: Present: soft, Non-Tender. Absent: tenderness, distention, guarding, rebound, rigidity - Extremities Exam Extremities exam: Present: normal inspection, full ROM. Absent: tenderness, pedal edema - Expanded Lower Extremity Exam Neurovascular/Tendon exam: Absent: motor deficit, sensory deficit, tendon deficit Gait: observed and normal - Back Exam Back exam: Present: normal inspection, full ROM. Absent: tenderness - Neurological Exam Neurological exam: Present: alert, oriented X3 - Psychiatric Psychiatric exam: Present: normal affect, normal mood - Skin Skin exam: Present: warm, dry, intact, normal color Course Vital Signs Temperature 98.1 F 06/08/17 19:01 Pulse Rate 114 06/08/17 19:01 Respiratory Rate 22 06/08/17 19:01 Blood Pressure 148/76 06/08/17 19:01 O2 Sat by Pulse Oximetry 97 06/08/17 19:01 Temperature 98.1 F 06/08/17 19:01 Pulse Rate 114 06/08/17 19:01 Respiratory Rate 22 06/08/17 19:01 Blood Pressure 148/76 06/08/17 19:01 O2 Sat by Pulse Oximetry 97 06/08/17 19:01 Oxygen Delivery Oxygen Delivery Room Air Psych - Lab Data Lab results reviewed: Yes I reviewed the patient's lab results. Result diagrams: 06/08/17 19:11 06/08/17 19:11 Lab Results 06/08/17 06/08/17 06/08/17 Range/Units 19:11 19:11 19:11 WBC 12.4 H (4.3-11.1) K/mcL RBC 5.13 (4.19-5.50) M/mcL Hgb 15.4 (12.9-16.9) g/dL Hct 45.8 (37.5-50.1) % MCV 89.3 (83.0-100.0) fL MCH 30.0 (28.0-33.3) pg MCHC 33.6 (31.6-35.5) g/dL RDW 12.9 (11.5-14.5) % Plt Count 392 (140-400) K/mcL MPV 10.3 (9.4-12.4) fL Immature Gran % 0.3 (0-4) % Seg Neutrophils % 66.1 % Lymphocytes % 24.8 % Monocytes % 6.6 % Eosinophils % 1.6 % Basophils % 0.6 % Neutrophils # 8.2 (1.6-8.9) K/mcL Lymphocytes # 3.1 (0.6-4.6) K/mcL Monocytes # 0.8 (0.0-1.3) K/mcL Eosinophils # 0.2 (0.0-0.6) K/mcL Basophils # 0.1 (0.0-0.2) K/mcL Sodium (136-145) mEq/L Potassium (3.5-4.5) mEq/L Chloride (98-109) mEq/L Carbon Dioxide (19-29) mEq/L BUN (8-26) mg/dL Creatinine (0.72-1.25) mg/dL Est GFR ( Amer) (> 60) Est GFR (Non-Af Amer) (> 60) BUN/Creatinine Ratio (6-26) Glucose (70-99) mg/dL Calculated Osmolality (280-300) Calcium (8.6-10.8) mg/dL Urine Color Yellow (Yellow) Urine Clarity Clear (Clear) Urine pH 7.0 (5.0-8.0) pH Units Ur Specific [place] 1.015 (1.010-1.025) Urine Protein Negative (Neg-Trace) mg/dL Urine Glucose (UA) Normal (Normal) mg/dL Urine Ketones Negative (Negative) mg/dL Urine Blood Negative (Negative) Urine Nitrite Negative (Negative) Urine Bilirubin Negative (Negative) Urine Urobilinogen Normal (Normal) mg/dL Ur Leukocyte Esterase Negative (Negative) Salicylates (15-30) mg/dL Urine Opiates Screen Negative (Fpnznb=629) ng/mL Acetaminophen (10-30) mcg/mL Ur Barbiturates Screen Negative (Exkvuy=317) ng/mL Ur Phencyclidine Scrn Negative (Cutoff=25) ng/mL Ur Amphetamines Screen Negative (Bdvmqh=1981) ng/mL U Benzodiazepines Scrn Negative (Rlplvh=232) ng/mL Urine Cocaine Screen Negative (Cutoff= 300) ng/mL U Marijuana (THC) Screen Negative (Cutoff = 50) ng/mL Ethyl Alcohol (0-10) mg/dL 06/08/17 Range/Units 19:11 WBC (4.3-11.1) K/mcL RBC (4.19-5.50) M/mcL Hgb (12.9-16.9) g/dL Hct (37.5-50.1) % MCV (83.0-100.0) fL MCH (28.0-33.3) pg MCHC (31.6-35.5) g/dL RDW (11.5-14.5) % Plt Count (140-400) K/mcL MPV (9.4-12.4) fL Immature Gran % (0-4) % Seg Neutrophils % % Lymphocytes % % Monocytes % % Eosinophils % % Basophils % % Neutrophils # (1.6-8.9) K/mcL Lymphocytes # (0.6-4.6) K/mcL Monocytes # (0.0-1.3) K/mcL Eosinophils # (0.0-0.6) K/mcL Basophils # (0.0-0.2) K/mcL Sodium 140 (136-145) mEq/L Potassium 4.2 (3.5-4.5) mEq/L Chloride 106 (98-109) mEq/L Carbon Dioxide 23 (19-29) mEq/L BUN 9 (8-26) mg/dL Creatinine 0.92 (0.72-1.25) mg/dL Est GFR ( Amer) > 60 (> 60) Est GFR (Non-Af Amer) > 60 (> 60) BUN/Creatinine Ratio 10 (6-26) Glucose 95 (70-99) mg/dL Calculated Osmolality 288 (280-300) Calcium 9.7 (8.6-10.8) mg/dL Urine Color (Yellow) Urine Clarity (Clear) Urine pH (5.0-8.0) pH Units Ur Specific [place] (1.010-1.025) Urine Protein (Neg-Trace) mg/dL Urine Glucose (UA) (Normal) mg/dL Urine Ketones (Negative) mg/dL Urine Blood (Negative) Urine Nitrite (Negative) Urine Bilirubin (Negative) Urine Urobilinogen (Normal) mg/dL Ur Leukocyte Esterase (Negative) Salicylates < 5.0 L (15-30) mg/dL Urine Opiates Screen (Hradip=282) ng/mL Acetaminophen < 1.0 L (10-30) mcg/mL Ur Barbiturates Screen (Icwjns=109) ng/mL Ur Phencyclidine Scrn (Cutoff=25) ng/mL Ur Amphetamines Screen (Isnppg=7123) ng/mL U Benzodiazepines Scrn (Aawpep=930) ng/mL Urine Cocaine Screen (Cutoff= 300) ng/mL U Marijuana (THC) Screen (Cutoff = 50) ng/mL Ethyl Alcohol 94 H (0-10) mg/dL - Radiology Data Radiology results reviewed: Yes I reviewed the patient's radiology results. Head CT 06/08/17 19:05 IMPRESSION: No acute intracranial abnormality. D/ / Cristopher Blunt MD / Cristopher Blunt MD Interpreting Provider: Cristopher Blunt MD - EKG Data EKG attestation: Yes I reviewed and interpreted this EKG. EKG shows normal: sinus rhythm Rate: tachycardia (100) [place]/QRS: normal Interpretation: no acute changes Psychiatric Medical Clearance - Medical Clearance Checklist Medical History: No Social History Section defined Current Vitals: Last Vital Signs Temp 98.1 F 06/08/17 19:01 Pulse 114 06/08/17 19:01 Resp 22 06/08/17 19:01 BP 148/76 06/08/17 19:01 Pulse Ox 97 06/08/17 19:01 Psychiatric Lab Panel: Drug Levels and Toxicity 06/08/17 06/08/17 19:11 19:11 Urine Opiates Screen Negative Acetaminophen < 1.0 L Ur Barbiturates Screen Negative Ur Phencyclidine Scrn Negative Ur Amphetamines Screen Negative U Benzodiazepines Scrn Negative Urine Cocaine Screen Negative U Marijuana (THC) Screen Negative Ethyl Alcohol 94 H Abnormal Labs: Abnormal lab results WBC 12.4 K/mcL (4.3-11.1) H 06/08/17 19:11 Salicylates < 5.0 mg/dL (15-30) L 06/08/17 19:11 Acetaminophen < 1.0 mcg/mL (10-30) L 06/08/17 19:11 Ethyl Alcohol 94 mg/dL (0-10) H 06/08/17 19:11 Statement of Medical Clearance: I have evaluated the patient, reviewed diagnostic information, and certify that the patient's medical condition is sufficiently stable that transfer to the psychiatric unit does not pose a significant risk of deterioration. S.B.A.R. - S.B.A.R. Recommendation: Recommendation based on pending studies, treatments, or consults S.B.A.R. Report Given to: Hemant DEAN S.B.A.RDebbie Repor Time: 23:00
[2017-06-08 19:22] LABS: Basophils # 0.1 K/mcL (0.0-0.2); Basophils % 0.6 %; Eosinophils # 0.2 K/mcL (0.0-0.6); Eosinophils % 1.6 %; Hematocrit 45.8 % (37.5-50.1); Hemoglobin 15.4 g/dL (12.9-16.9); Immature Granulocytes % 0.3 % (0-4); Lymphocytes # 3.1 K/mcL (0.6-4.6); Lymphocytes % 24.8 %; Mean Corpuscular HGB Conc 33.6 g/dL (31.6-35.5); Mean Corpuscular Volume 89.3 fL (83.0-100.0); Mean Platelet Volume 10.3 fL (9.4-12.4); Monocytes # 0.8 K/mcL (0.0-1.3); Monocytes % 6.6 %; Neutrophils # 8.2 K/mcL (1.6-8.9); Platelet Count 392 K/mcL (140-400); Red Blood Count 5.13 M/mcL (4.19-5.50); Red Cell Distribution Width 12.9 % (11.5-14.5); Segmented Neutrophils % 66.1 %
[2017-06-08 19:29] LABS: Bilirubin,Urine Negative (Negative); Blood,Urine Negative (Negative); Clarity,Urine Clear (Clear); Color,Urine Yellow (Yellow); Glucose,Urine (UA) Normal (Normal); Ketones,Urine Negative (Negative); Leukocyte Esterase,Urine Negative (Negative); Nitrite,Urine Negative (Negative); Protein,Urine Negative (Neg-Trace); Specific Gravity,Urine 1.015 (1.010-1.025); Urobilinogen,Urine Normal (Normal)
[2017-06-08 19:35] LABS: Amphetamine Screen,Urine Negative ng/mL (Cutoff=1000); Barbiturate Screen,Urine Negative ng/mL (Cutoff=200); Benzodiazepines Screen,Urine Negative ng/mL (Cutoff=200); Cannabinoid Screen,Urine Negative ng/mL (Cutoff = 50); Cocaine Screen,Urine Negative ng/mL (Cutoff= 300); Opiate Screen,Urine Negative ng/mL (Cutoff=300); Phencyclidine Screen,Urine Negative ng/mL (Cutoff=25)
[2017-06-08 19:36] LABS: BUN/Creatinine Ratio 10 (6-26); Blood Urea Nitrogen 9 mg/dL (8-26); Calcium 9.7 mg/dL (8.6-10.8); Carbon Dioxide 23 mEq/L (19-29); Chloride 106 mEq/L (98-109); Ethanol 94 mg/dL (0-10); Glucose 95 mg/dL (70-99); Osmolality,Calculated 288 (280-300); Potassium 4.2 mEq/L (3.5-4.5); Sodium 140 mEq/L (136-145); eGFR For African Americans > 60 (> 60); eGFR For Non-African Americans > 60 (> 60)
[2017-06-08 19:37] LABS: Acetaminophen < 1.0 mcg/mL (10-30); Salicylate < 5.0 mg/dL (15-30)
[2017-06-09] MEDS ORDERED: hydrOXYzine pamoate 25 MG CAPSULE PO PRN (02:26)
[2017-06-09] MEDS ORDERED: Haloperidol Lactate 5 MG/ML VIAL IM PRN (02:26)
[2017-06-09] MEDS ORDERED: Mag Hydrox/Al Hydrox/Simeth 30 ML UDC PO PRN (02:26)
[2017-06-09] MEDS ORDERED: *HR* LORazepam 2 MG/ML VIAL IM PRN (02:26)
[2017-06-09] MEDS ORDERED: Nicotine 2 MG GUM BC PRN (02:26)
[2017-06-09] MEDS ORDERED: *HR* LORazepam 1 MG TABLET PO PRN (02:26)
[2017-06-09] MEDS ORDERED: traZODone 50 MG TABLET PO PRN ×2 (02:26→02:35)
[2017-06-09] MEDS ORDERED: Ibuprofen 400 MG TABLET PO PRN (02:26)
[2017-06-09] MEDS ORDERED: MOM Conc 10 ML UD.LIQ PO PRN (02:26)
[2017-06-09] MEDS ORDERED: Oxymetazoline Nasal SPRAY BOTTLE NS PRN (02:35)
--- NOTE | 2017-06-09 03:16 | Emergency Department Note ---
Disposition Clinical Impression: Chronic schizophrenia, Acute psychosis Disposition: Admitted As Inpatient Condition: Fair Psych HPI - General Chief Complaint: ED Psychiatric Symptoms Stated Complaint: AUDITORY HALLUCINATIONS Time Seen by Provider: 06/08/17 19:01 Source: patient Mode of arrival: ambulatory - History of Present Illness Duration: constant Improves with: none Worsens with: none Associated symptoms: Reports: headache Treatments prior to arrival: none - Related Data Previous Rx's Medication Instructions Recorded TraZODone 50 mg PO HS PRN #30 tablet 07/14/16 Aspirin [Ecotrin] 325 mg PO DAILY #30 tablet. 12/01/16 Lisinopril [Zestril] 5 mg PO DAILY #30 tablet 12/01/16 Amantadine [Symmetrel] 100 mg PO BID #30 capsule 12/25/16 Propranolol [Inderal] 20 mg PO BID #60 tablet 12/25/16 Ketoconazole Shampoo [Nizoral 1 appl TP 2XW bottle 01/21/17 Shampoo] Oxymetazoline [Afrin] 1 spray NS Q12HR PRN #0 bottle 01/21/17 Lisinopril [Zestril] 5 mg PO DAILY tablet 03/29/17 Propranolol [Inderal] 10 mg PO BID tablet 03/29/17 Divalproex (12 HR) [Depakote (12 250 mg PO BID #60 05/13/17 HR)] Lurasidone [Latuda] 120 mg PO HS #30 tab 05/13/17 Quetiapine Fumarate [Seroquel] 100 mg PO QAM #30 tablet 05/13/17 Quetiapine Fumarate [Seroquel] 150 mg PO HS #30 tablet 05/13/17 Allergies Allergy/AdvReac Type Severity Reaction Status Date / Time No Known Allergies Allergy Verified 06/01/17 14:51 Constitutional: Denies: fever, chills, weakness, weight change Eyes: Denies: eye pain, eye discharge, vision change ENT ED: Denies: ear pain, throat pain, dental pain, hearing loss, epistaxis, congestion, dysphagia Cardiovascular: Denies: chest pain, palpitations, dyspnea on exertion, edema, syncope Respiratory: Denies: cough, dyspnea, wheezes, hemoptysis, stridor Gastrointestinal: Denies: abdominal pain, nausea, vomiting, diarrhea, constipation, hematemesis, melena, hematochezia Genitourinary: Denies: urgency, dysuria, frequency, hematuria Musculoskeletal: Denies: back pain, neck pain, arthralgia, myalgia Integumentary: Denies: rash, abrasion, lesions Neurological: Reports: headache. Denies: weakness, numbness, paresthesias, confusion, abnormal gait, vertigo Psychiatric: Reports: auditory hallucinations. Denies: anxiety, depression, suicidal thoughts, homicidal thoughts, visual hallucinations Endocrine: Denies: fatigue Hematological/Lymphatic: Denies: easy bleeding, easy bruising Allergic/Immunologic: Denies: facial swelling, urticaria Past Medical History - Past Medical History Medical history: Reports: hyperlipidemia, hypertension, seizures Surgical history: Reports: appendectomy, arthroscopy Psychiatric history: Reports: anxiety, schizophrenia, previous psychiatric hospitalization - Social History Smoking Status: Current every day smoker Smokeless Tobacco Status: No Alcohol use: Reports: heavy Drug use: Reports: marijuana Physical Exam - General Limitations: no limitations General appearance: alert, anxious Course Vital Signs Temperature 98.1 F 06/08/17 19:01 Pulse Rate 114 06/08/17 19:01 Respiratory Rate 22 06/08/17 19:01 Blood Pressure 148/76 06/08/17 19:01 O2 Sat by Pulse Oximetry 97 06/08/17 19:01 Temperature 97.8 F 06/09/17 01:39 Pulse Rate 91 06/09/17 01:39 Respiratory Rate 18 06/09/17 01:39 Blood Pressure 138/96 06/09/17 01:39 O2 Sat by Pulse Oximetry 97 06/08/17 19:01 Oxygen Delivery Oxygen Delivery Room Air Psych - MDM Narrative Medical decision making narrative: Patient received in sign out at 11 PM pending behavioral health evaluation. Behavioral health evaluated the patient in the emergency department and felt he required inpatient treatment for his auditory hallucinations. Patient is comfortable with this plan of action. Patient had no further complaints or concerns while in the emergency department. - Lab Data Result diagrams: 06/08/17 19:11 06/08/17 19:11 Lab Results 06/08/17 06/08/17 06/08/17 Range/Units 19:11 19:11 19:11 WBC 12.4 H (4.3-11.1) K/mcL RBC 5.13 (4.19-5.50) M/mcL Hgb 15.4 (12.9-16.9) g/dL Hct 45.8 (37.5-50.1) % MCV 89.3 (83.0-100.0) fL MCH 30.0 (28.0-33.3) pg MCHC 33.6 (31.6-35.5) g/dL RDW 12.9 (11.5-14.5) % Plt Count 392 (140-400) K/mcL MPV 10.3 (9.4-12.4) fL Immature Gran % 0.3 (0-4) % Seg Neutrophils % 66.1 % Lymphocytes % 24.8 % Monocytes % 6.6 % Eosinophils % 1.6 % Basophils % 0.6 % Neutrophils # 8.2 (1.6-8.9) K/mcL Lymphocytes # 3.1 (0.6-4.6) K/mcL Monocytes # 0.8 (0.0-1.3) K/mcL Eosinophils # 0.2 (0.0-0.6) K/mcL Basophils # 0.1 (0.0-0.2) K/mcL Sodium (136-145) mEq/L Potassium (3.5-4.5) mEq/L Chloride (98-109) mEq/L Carbon Dioxide (19-29) mEq/L BUN (8-26) mg/dL Creatinine (0.72-1.25) mg/dL Est GFR ( Amer) (> 60) Est GFR (Non-Af Amer) (> 60) BUN/Creatinine Ratio (6-26) Glucose (70-99) mg/dL Calculated Osmolality (280-300) Calcium (8.6-10.8) mg/dL Urine Color Yellow (Yellow) Urine Clarity Clear (Clear) Urine pH 7.0 (5.0-8.0) pH Units Ur Specific [place] 1.015 (1.010-1.025) Urine Protein Negative (Neg-Trace) mg/dL Urine Glucose (UA) Normal (Normal) mg/dL Urine Ketones Negative (Negative) mg/dL Urine Blood Negative (Negative) Urine Nitrite Negative (Negative) Urine Bilirubin Negative (Negative) Urine Urobilinogen Normal (Normal) mg/dL Ur Leukocyte Esterase Negative (Negative) Salicylates (15-30) mg/dL Urine Opiates Screen Negative (Ubbdto=740) ng/mL Acetaminophen (10-30) mcg/mL Ur Barbiturates Screen Negative (Ukgnsd=697) ng/mL Ur Phencyclidine Scrn Negative (Cutoff=25) ng/mL Ur Amphetamines Screen Negative (Wzqnvx=5875) ng/mL U Benzodiazepines Scrn Negative (Jebfcl=629) ng/mL Urine Cocaine Screen Negative (Cutoff= 300) ng/mL U Marijuana (THC) Screen Negative (Cutoff = 50) ng/mL Ethyl Alcohol (0-10) mg/dL 06/08/17 06/08/17 Range/Units 19:11 22:02 WBC (4.3-11.1) K/mcL RBC (4.19-5.50) M/mcL Hgb (12.9-16.9) g/dL Hct (37.5-50.1) % MCV (83.0-100.0) fL MCH (28.0-33.3) pg MCHC (31.6-35.5) g/dL RDW (11.5-14.5) % Plt Count (140-400) K/mcL MPV (9.4-12.4) fL Immature Gran % (0-4) % Seg Neutrophils % % Lymphocytes % % Monocytes % % Eosinophils % % Basophils % % Neutrophils # (1.6-8.9) K/mcL Lymphocytes # (0.6-4.6) K/mcL Monocytes # (0.0-1.3) K/mcL Eosinophils # (0.0-0.6) K/mcL Basophils # (0.0-0.2) K/mcL Sodium 140 (136-145) mEq/L Potassium 4.2 (3.5-4.5) mEq/L Chloride 106 (98-109) mEq/L Carbon Dioxide 23 (19-29) mEq/L BUN 9 (8-26) mg/dL Creatinine 0.92 (0.72-1.25) mg/dL Est GFR ( Amer) > 60 (> 60) Est GFR (Non-Af Amer) > 60 (> 60) BUN/Creatinine Ratio 10 (6-26) Glucose 95 (70-99) mg/dL Calculated Osmolality 288 (280-300) Calcium 9.7 (8.6-10.8) mg/dL Urine Color (Yellow) Urine Clarity (Clear) Urine pH (5.0-8.0) pH Units Ur Specific [place] (1.010-1.025) Urine Protein (Neg-Trace) mg/dL Urine Glucose (UA) (Normal) mg/dL Urine Ketones (Negative) mg/dL Urine Blood (Negative) Urine Nitrite (Negative) Urine Bilirubin (Negative) Urine Urobilinogen (Normal) mg/dL Ur Leukocyte Esterase (Negative) Salicylates < 5.0 L (15-30) mg/dL Urine Opiates Screen (Moylns=745) ng/mL Acetaminophen < 1.0 L (10-30) mcg/mL Ur Barbiturates Screen (Wtjfzf=723) ng/mL Ur Phencyclidine Scrn (Cutoff=25) ng/mL Ur Amphetamines Screen (Ggxoen=5394) ng/mL U Benzodiazepines Scrn (Bnvopr=698) ng/mL Urine Cocaine Screen (Cutoff= 300) ng/mL U Marijuana (THC) Screen (Cutoff = 50) ng/mL Ethyl Alcohol 94 H 33 H (0-10) mg/dL Psychiatric Medical Clearance - Medical Clearance Checklist Medical History: No Social History Section defined Current Vitals: Last Vital Signs Temp 97.8 F 06/09/17 01:39 Pulse 91 06/09/17 01:39 Resp 18 06/09/17 01:39 BP 138/96 06/09/17 01:39 Pulse Ox 97 06/08/17 19:01 Psychiatric Lab Panel: Drug Levels and Toxicity 06/08/17 06/08/17 06/08/17 19:11 19:11 22:02 Urine Opiates Screen Negative Acetaminophen < 1.0 L Ur Barbiturates Screen Negative Ur Phencyclidine Scrn Negative Ur Amphetamines Screen Negative U Benzodiazepines Scrn Negative Urine Cocaine Screen Negative U Marijuana (THC) Screen Negative Ethyl Alcohol 94 H 33 H Abnormal Labs: Abnormal lab results WBC 12.4 K/mcL (4.3-11.1) H 06/08/17 19:11 Salicylates < 5.0 mg/dL (15-30) L 06/08/17 19:11 Acetaminophen < 1.0 mcg/mL (10-30) L 06/08/17 19:11 Ethyl Alcohol 33 mg/dL (0-10) H 06/08/17 22:02 Statement of Medical Clearance: I have evaluated the patient, reviewed diagnostic information, and certify that the patient's medical condition is sufficiently stable that transfer to the psychiatric unit does not pose a significant risk of deterioration.
[2017-06-09] MEDS: Divalproex (12 HR) 250 MG TABLET PO SCH ×3 (03:54→20:56)
[2017-06-09] MEDS: Aspirin Enteric Coated 325 MG Tablet PO SCH (08:47)
--- NOTE | 2017-06-09 11:31 | Psychiatry History & Physical ---
Date of Encounter: 06/09/17 Time of Encounter: 11:29 History of Present Illness Patient Stated Chief Complaint: "im tired" Medicare Admission Attestation: For traditional Medicare patients the provided hospital inpatient services are reasonable and necessary and in the case of services not specified as inpatient -only under 42 CFR 419.22 (n), that they are appropriately provided as inpatient services in accordance 42 CFR 412.3. For Critical Access Hospital the patient may reasonably be expected to be discharged or transferred to a hospital within 96 hours after admission to the Critical Access Hospital. Admitted From: Emergency Dept Plans for Post Hospital Care: Home History of Present Illness: Mr. Miller is a 36 year old male with a past psychiatric history of schizoaffective disorder admitted for the emergency department after patient was complaining of hearing voices. Patient reports using methamphetamine prior to getting admitted. On approach with patient this morning he reported "I am tired". Patient was a very poor historian reports that the reason he is here is because he needs help with "the voices I am hearing". Patient did admit to using substances prior to getting admitted patient endorsed depressive symptoms patient endorses anxiety symptoms patient endorses auditory hallucinations patient did not endorse manic or hypomanic symptoms patient was not able to answer if he was suicidal at the time of approach due to patient poor cooperation with evaluation. Patient has not required any when necessary medication while he is on on the floor for agitation or aggression. Patient requires stabilization on medication. Past Med Surg Social Fam HX - Past Medical History Medical history: hyperlipidemia, hypertension, seizures - Past Psychiatric History Psychiatric history: Reports: schizophrenia, previous psychiatric hospitalization Past psychiatric history details: Patient has had numerous prior inpatient hospitalizations. Patient was unable to recall any past psychotropic medications he was on patient was also unable to recall any current psychotropic medication he was on and reports "I do not know". Patient reports he does follow-up with outpatient provider but was not able to tell this provider with the name of that provider [facility]. Patient was able to answer if there is any family psychiatric history - Past Surgical History Surgical History: appendectomy, arthroscopy - Social History Smoking Status: Current every day smoker Smokeless Tobacco Status: No Alcohol use: heavy Drug use: marijuana - Family History Father History Unknown: Yes Adopted: Yes Name: Duc Miller Age: 53 Family Member Ethnicity: Non- Living Status: Still Living Hx Family Cardiac Disorders: Yes Hx Family Respiratory Disorders: No Hx Family Cancer: No Hx Family GI Disorders: No Hx Family Genitourinary Disorders: No Hx Family Endocrine Disorder: Yes Hx Family Musculoskeletal Disorders: No Hx Family Neuromuscular Disorders: No Hx Family Neurologic Disorders: No Hx Family HEENT Disorders: No Hx Family Autoimmune Disorders: No Hx Family Reproductive Disorders: No Hx Family Psychosocial Disorders: No Hx Family Medical Disorders: No Medications & Allergies TraZODone 50 mg PO HS PRN #30 tablet 07/14/16 [Rx] Aspirin [Ecotrin] 325 mg PO DAILY #30 tablet. 12/01/16 [Rx] Lisinopril [Zestril] 5 mg PO DAILY #30 tablet 12/01/16 [Rx] Amantadine [Symmetrel] 100 mg PO BID #30 capsule 12/25/16 [Rx] Ketoconazole Shampoo [Nizoral Shampoo] 1 appl TP 2XW bottle 01/21/17 [Rx] Oxymetazoline [Afrin] 1 spray NS Q12HR PRN #0 bottle 01/21/17 [Rx] Propranolol [Inderal] 10 mg PO BID tablet 03/29/17 [Rx] Divalproex (12 HR) [Depakote (12 HR)] 250 mg PO BID #60 05/13/17 [Rx] Lurasidone [Latuda] 120 mg PO HS #30 tab 05/13/17 [Rx] Quetiapine Fumarate [Seroquel] 100 mg PO QAM #30 tablet 05/13/17 [Rx] Quetiapine Fumarate [Seroquel] 150 mg PO HS #30 tablet 05/13/17 [Rx] 3 Allergy/AdvReac Type Severity Reaction Status Date / Time No Known Allergies Allergy Verified 06/01/17 14:51 Review of Systems Psychiatric: Reports: abnormal sleep pattern, suicidal ideation, auditory hallucinations, difficulty concentrating, hopelessness, mood swings Mental Status Exam Patient orientation: Yes Person, Yes Time Level of alertness: Sedated Patient appearance: Unkempt Behavior: anxious, restless, distractible Psychomotor activity: Slowed Eye contact: Minimal Contact Mood description: Depressed, Anxious, Labile Affect description: flat Speech pattern: Slowed, Delayed, Disorganized Speech volume: Soft/Quiet Thought process: Loose Associations Thought content: Yes Suicidal ideation Perceptual disturbances: Yes Auditory hallucinations Attention span: Unable to Focus, Unable to Sustain Attention Memory description: Immediate Impaired, Remote Impaired Patient reliability: Questionable Historian Exam - HEENT Head exam IM: Present: normal inspection Eye exam IM: Present: EOMI - Neurological Neurological exam IM: Present: CN II-XII intact Results - Vital Signs Vital signs: Temp Pulse Resp BP Pulse Ox 98.4 F 94 16 108/79 97 06/09/17 09:00 06/09/17 09:00 06/09/17 09:00 06/09/17 09:00 06/08/17 19:01 - Labs Labs: Laboratory Last Values WBC 12.4 K/mcL (4.3-11.1) H 06/08/17 19:11 RBC 5.13 M/mcL (4.19-5.50) 06/08/17 19:11 Hgb 15.4 g/dL (12.9-16.9) 06/08/17 19:11 Hct 45.8 % (37.5-50.1) 06/08/17 19:11 MCV 89.3 fL (83.0-100.0) 06/08/17 19:11 MCH 30.0 pg (28.0-33.3) 06/08/17 19:11 MCHC 33.6 g/dL (31.6-35.5) 06/08/17 19:11 RDW 12.9 % (11.5-14.5) 06/08/17 19:11 Plt Count 392 K/mcL (140-400) 06/08/17 19:11 MPV 10.3 fL (9.4-12.4) 06/08/17 19:11 Immature Gran % 0.3 % (0-4) 06/08/17 19:11 Seg Neutrophils % 66.1 % 06/08/17 19:11 Lymphocytes % 24.8 % 06/08/17 19:11 Monocytes % 6.6 % 06/08/17 19:11 Eosinophils % 1.6 % 06/08/17 19:11 Basophils % 0.6 % 06/08/17 19:11 Neutrophils # 8.2 K/mcL (1.6-8.9) 06/08/17 19:11 Lymphocytes # 3.1 K/mcL (0.6-4.6) 06/08/17 19:11 Monocytes # 0.8 K/mcL (0.0-1.3) 06/08/17 19:11 Eosinophils # 0.2 K/mcL (0.0-0.6) 06/08/17 19:11 Basophils # 0.1 K/mcL (0.0-0.2) 06/08/17 19:11 Sodium 140 mEq/L (136-145) 06/08/17 19:11 Potassium 4.2 mEq/L (3.5-4.5) 06/08/17 19:11 Chloride 106 mEq/L (98-109) 06/08/17 19:11 Carbon Dioxide 23 mEq/L (19-29) 06/08/17 19:11 BUN 9 mg/dL (8-26) 06/08/17 19:11 Creatinine 0.92 mg/dL (0.72-1.25) 06/08/17 19:11 Est GFR ( Amer) > 60 (> 60) 06/08/17 19:11 Est GFR (Non-Af Amer) > 60 (> 60) 06/08/17 19:11 BUN/Creatinine Ratio 10 (6-26) 06/08/17 19:11 Glucose 95 mg/dL (70-99) 06/08/17 19:11 Calculated Osmolality 288 (280-300) 06/08/17 19:11 Calcium 9.7 mg/dL (8.6-10.8) 06/08/17 19:11 Urine Color Yellow (Yellow) 06/08/17 19:11 Urine Clarity Clear (Clear) 06/08/17 19:11 Urine pH 7.0 pH Units (5.0-8.0) 06/08/17 19:11 Ur Specific [place] 1.015 (1.010-1.025) 06/08/17 19:11 Urine Protein Negative mg/dL (Neg-Trace) 06/08/17 19:11 Urine Glucose (UA) Normal mg/dL (Normal) 06/08/17 19:11 Urine Ketones Negative mg/dL (Negative) 06/08/17 19:11 Urine Blood Negative (Negative) 06/08/17 19:11 Urine Nitrite Negative (Negative) 06/08/17 19:11 Urine Bilirubin Negative (Negative) 06/08/17 19:11 Urine Urobilinogen Normal mg/dL (Normal) 06/08/17 19:11 Ur Leukocyte Esterase Negative (Negative) 06/08/17 19:11 Salicylates < 5.0 mg/dL (15-30) L 06/08/17 19:11 Urine Opiates Screen Negative ng/mL (Qubzvl=447) 06/08/17 19:11 Acetaminophen < 1.0 mcg/mL (10-30) L 06/08/17 19:11 Ur Barbiturates Screen Negative ng/mL (Yfrebc=162) 06/08/17 19:11 Ur Phencyclidine Scrn Negative ng/mL (Cutoff=25) 06/08/17 19:11 Ur Amphetamines Screen Negative ng/mL (Qxlyvk=1656) 06/08/17 19:11 U Benzodiazepines Scrn Negative ng/mL (Hayiim=618) 06/08/17 19:11 Urine Cocaine Screen Negative ng/mL (Cutoff= 300) 06/08/17 19:11 U Marijuana (THC) Screen Negative ng/mL (Cutoff = 50) 06/08/17 19:11 Ethyl Alcohol 33 mg/dL (0-10) H 06/08/17 22:02 Assessment and Plan (1) Schizophrenia Current visit: No Status: Acute Plan: Admit inpatient for safety and stabilization, Encourage participation in unit milieu, Group Therapy, Monitor sleep, Monitor appetite, Secure weapons Risks, benefits, side effects, alternatives discussed w/pt: Yes Patient agreeable to treatment: Yes Estimated Length of Stay (Days): 5 Qualifiers: Schizophrenia type: paranoid schizophrenia Qualified Code(s): F20.0 - Paranoid schizophrenia
--- NOTE | 2017-06-09 15:02 | Electrocardiograph Report ---
[place] [id number] Test Date: 2017-06-08 Pat Name: Troy Miller Department: 102 Room: 1A44 Gender: M Cardiovascular Invasive Specialist: Mack : 1980 Requested By: Danny Keys Order Number: [id number] Reading MD: Kinsey Rodriguez Measurements Intervals [place] Rate: 100 P: -1 VA: 130 QRS: 12 QRSD: 97 T: 1 QT: 340 QTc: 397 Interpretive Statements SINUS TACHYCARDIA ABNORMAL RHYTHM ECG Electronically Signed On 06-09-2017 15:00:42 EDT by Kinsey Rodriguez
[2017-06-10] MEDS: Divalproex (12 HR) 250 MG TABLET PO SCH ×2 (08:39→20:11)
[2017-06-10] MEDS: Aspirin Enteric Coated 325 MG Tablet PO SCH (08:40)
--- NOTE | 2017-06-10 08:40 | Psychiatry Progress Note ---
Date of Encounter: 06/10/17 Time of Encounter: 08:39 Subjective Interval history: Patient seen and evaluated this morning patient did seem to be anxious during the evaluation. Patient reports his mood is "tired". Patient continues to report he is hearing voices patient reports medication is not having any issues right now but reports ongoing auditory hallucinations. Patient reports his voices are very vague and he is not able to tell this provider what the voices are saying patient has been medication compliant per staff patient has not had any when necessary's for agitation or aggression on patient has been in his room and isolating and sleeping a lot lately the patient has been coming out for meals and has not been attending groups. Review of Systems Psychiatric: Reports: abnormal sleep pattern, suicidal ideation, auditory hallucinations, difficulty concentrating, hopelessness, mood swings Objective: Exam Patient orientation: Yes Person, Yes Time, Yes Place Level of alertness: Other Patient appearance: Unkempt Behavior: nervous, anxious, restless Psychomotor activity: Slowed Eye contact: Minimal Contact Mood description: Anxious, Labile Affect description: flat Speech pattern: Rambling Speech volume: Normal Thought content: Yes Preoccupation, Yes Paranoid delusion Perceptual disturbances: Yes Auditory hallucinations Judgment: Limited Insight: Minimal Results - Vital Signs Vital Signs: Temp Pulse Resp BP Pulse Ox 97.8 F 76 18 104/59 97 06/09/17 20:55 06/09/17 20:55 06/09/17 20:55 06/09/17 20:55 06/08/17 19:01 Assessment and Plan (1) Schizophrenia Current visit: No Status: Acute Plan: Continue hospitalization, Group Therapy, Monitor sleep, Monitor appetite Risks, benefits, side effects, alternatives discussed w/pt: Yes Patient agreeable to treatment: Yes Qualifiers: Schizophrenia type: paranoid schizophrenia Qualified Code(s): F20.0 - Paranoid schizophrenia Consult Discharge Plan - Plan Referrals: [facility] [Outside] (You are going into mental health respite at [facility] on discharge from the hospital. While there, you will be seen daily by the clinic counselors and senior case manager, both individually and in group. You will also be scheduled to see the psychiatric provider for outpatient psychiatric assessment and medication management.)
[2017-06-10] MEDS ORDERED: Ketoconazole Shampoo 120 ML BOTTLE TP SCH (09:00)
--- NOTE | 2017-06-10 09:28 | Discharge Summary ---
Date of Encounter: 06/11/17 Time of Encounter: 09:25 Diagnosis - Discharge Diagnosis (1) Schizophrenia Status: Acute Qualifiers: Schizophrenia type: paranoid schizophrenia Qualified Code(s): F20.0 - Paranoid schizophrenia Medications - Discharge Medications Prescriptions: Divalproex (12 HR) [Depakote (12 HR)] 250 mg PO BID #60 Lurasidone [Latuda] 120 mg PO HS #90 tab Propranolol [Inderal] 20 mg PO BID #60 tab Quetiapine Fumarate [Seroquel] 100 mg PO QAM #30 tab Quetiapine Fumarate [Seroquel] 150 mg PO HS #45 tab Ketoconazole Shampoo [Nizoral Shampoo] 1 appl TP 2XW bottle 01/21/17 [Rx] Oxymetazoline [Afrin] 1 spray NS Q12HR PRN #0 bottle 01/21/17 [Rx] Amantadine [Symmetrel] 100 mg PO BID 06/10/17 [Rx] Aspirin Enteric Coated [Aspirin EC] 325 mg PO DAILY 06/10/17 [Rx] Divalproex (12 HR) [Depakote (12 HR)] 250 mg PO BID #60 06/10/17 [Rx] Lisinopril [Zestril] 5 mg PO DAILY tab 06/10/17 [Rx] Lurasidone [Latuda] 120 mg PO HS #90 tab 06/10/17 [Rx] Propranolol [Inderal] 10 mg PO BID tab 06/10/17 [Rx] Propranolol [Inderal] 20 mg PO BID #60 tab 06/10/17 [Rx] Quetiapine Fumarate [Seroquel] 100 mg PO QAM #30 tab 06/10/17 [Rx] Quetiapine Fumarate [Seroquel] 150 mg PO HS #45 tab 06/10/17 [Rx] 3 Allergy/AdvReac Type Severity Reaction Status Date / Time No Known Allergies Allergy Verified 06/01/17 14:51 Provider Date of admission: 06/09/17 01:43 Primary care physician: PCP NONE Discharging clinician: Nicole Chavis Assessment and Plan - Patient/Caregiver Discharge Instructions Activity: resume usual activities as tolerated Diet: regular diet - Follow up Plan Follow up with: [facility] [Outside] (You are going into mental health respite at [facility] on discharge from the hospital. While there, you will be seen daily by the clinic counselors and case reviewer, both individually and in group. You will see Sherry Andrade for outpatient psychiatric assessment and medication management services on 06/18/2017 at 2:00pm.) Disposition: Transfer Other Hospital Course Hospital course: Mr. Miller is a 36 year old male admitted to [facility] inpatient psychiatric unit for safety and stabilization. Patient's home medications were continued and reviewed. Pt tolerated his home meds well he was also encouraged to take naltrexone to help assist with etoh dep pt was agreeable to this. Patient did not exhibit any side effects to medication he was med compliant while he was on the unit patient participated in groups and was socializing with peers. Patient 's sleep and appetite was fair. Patient denied any suicide or homicide ideations. Patient denied any thoughts of self-harm. Patient reports being interested in outpatient medication management and counseling. Patient was discussed for discharge due to patient not being a threat to himself or anyone else. 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 Patient will be returning to [facility] on discharge. - Time Spent with Patient Total time spent providing and/or coordinating discharge services: Quality - Multiple Antipsychotics Patient discharged on 2 or more antipsychotic medications: No Procedures - Procedures Procedures: Medication Management, Crisis Stabilization, Supportive Therapy, Group Therapy, Psychoeducational Therapy Mental Status Exam - Mental Status Exam Patient orientation: Yes Person, Yes Time, Yes Place Level of alertness: Alert Patient appearance: Appropriate Behavior: nervous, anxious, restless Psychomotor activity: Slowed Mood description: Anxious, Labile Affect description: flat Speech Volume: Normal Thought process: Intact Thought Content: Yes Intact Perceptual Disturbances: Yes Auditory hallucinations Judgment: Limited Insight: Minimal
[2017-06-11] MEDS: Divalproex (12 HR) 250 MG TABLET PO SCH (08:34)
[2017-06-11] MEDS: Aspirin Enteric Coated 325 MG Tablet PO SCH (08:34)
[2017-06-11 09:09] VITALS: BP 124/75
== END 2017-06-11 11:30 | disposition other institution (70) | DRG 750 ==
LOC: EMEROO 19:00 → 1ANU 06-09 01:43
PROVIDERS: ADMIT Psychiatry & Neurology Psychiatry; ATTEND Psychiatry & Neurology Psychiatry

== ENCOUNTER 2017-07-20 05:55 | Inpatient (IN) ==
--- NOTE | 2017-07-20 06:02 | Emergency Department Note ---
Disposition Clinical Impression: Chest pain Disposition: Still a Patient Condition: Good Referrals: NONE,PCP [Primary Care Provider] - General Adult HPI - General Stated complaint: chest pain/ETOH Time Seen by Provider: 07/20/17 05:56 Source: patient, EMS Mode of arrival: EMS Limitations: other (ETOH) Nursing Notes Reviewed: Yes Vital Signs Reviewed: Yes - History of Present Illness HPI Narrative: Patient presents to the ED via EMS and was seen and evaluated immediately upon arrival. EMS reports that they were called to to the patient's house for chest pain. States that the patient is obviously intoxicated with alcohol. EMS reports that they transported the patient at least once a week for similar complaints. States that the patient will get drunk, he urinated himself and then get anxious and complaining of chest pain. Does state that when they arrived, he had urinated himself and was complaining of mid chest discomfort. Patient is obviously intoxicated but is able to state that he has some pain in his chest and he points to his mid chest. He also states he has some discomfort in his right upper quadrant. Unknown if there is been any nausea or vomiting. - Related Data Previous Rx's Medication Instructions Recorded Ketoconazole Shampoo [Nizoral 1 appl TP 2XW bottle 01/21/17 Shampoo] Oxymetazoline [Afrin] 1 spray NS Q12HR PRN #0 bottle 01/21/17 Amantadine [Symmetrel] 100 mg PO BID 06/10/17 Aspirin Enteric Coated [Aspirin EC] 325 mg PO DAILY 06/10/17 Divalproex (12 HR) [Depakote (12 250 mg PO BID #60 06/10/17 HR)] Lisinopril [Zestril] 5 mg PO DAILY tab 06/10/17 Lurasidone [Latuda] 120 mg PO HS #90 tab 06/10/17 Propranolol [Inderal] 10 mg PO BID tab 06/10/17 Propranolol [Inderal] 20 mg PO BID #60 tab 06/10/17 Quetiapine Fumarate [Seroquel] 100 mg PO QAM #30 tab 06/10/17 Quetiapine Fumarate [Seroquel] 150 mg PO HS #45 tab 06/10/17 Allergies Allergy/AdvReac Type Severity Reaction Status Date / Time No Known Allergies Allergy Verified 06/01/17 14:51 All systems ED: reviewed and negative except as stated. Cardiovascular: Reports: chest pain Gastrointestinal: Reports: abdominal pain. Denies: vomiting Genitourinary: Reports: as per HPI Past Medical History - Past Medical History Attestation: Yes The following information was validated with the patient. Source: patient Medical history: Reports: hyperlipidemia, hypertension, seizures Surgical history: Reports: appendectomy, arthroscopy Psychiatric history: Reports: schizophrenia, previous psychiatric hospitalization - Social History Smoking Status: Current every day smoker Smokeless Tobacco Status: No Alcohol use: Reports: heavy Drug use: Reports: marijuana Physical Exam - General Limitations: other General appearance: alert, in no apparent distress, appears intoxicated - Head Head exam: atraumatic, normocephalic, normal inspection - Eye Eye exam: Present: PERRL - ENT ENT exam: mucous membranes moist - Respiratory Respiratory exam: Present: normal lung sounds bilaterally - Cardiovascular Cardiovascular exam: Present: normal rhythm, tachycardia - Abdominal Exam Abdominal exam: Present: soft, Non-Tender. Absent: tenderness, distention, guarding, rebound, rigidity - Extremities Exam Extremities exam: Present: normal inspection, full ROM, other (Patient's extremities are very dirty, unkempt). Absent: tenderness, pedal edema - Neurological Exam Neurological exam: Present: alert, oriented X3 (Patient mumbling at times and speech is obviously slurred and difficult to understand but appears oriented. Answers all questions appropriately) - Psychiatric Psychiatric exam: Present: other (Intoxicated) - Skin Skin exam: Present: warm, dry, intact, normal color Course Course Narrative: 37 y/o M presenting with alcohol intoxication and chest pain. Patient also urinated himself. EMS reports he does this frequently. Patient in no acute distress, but is obviously intoxicated. We will check chest pain labs as well as medical clearance labs. Vital Signs Temperature 97.8 F 07/20/17 05:57 Pulse Rate 99 07/20/17 05:57 Respiratory Rate 18 07/20/17 05:57 Blood Pressure 138/85 07/20/17 05:57 O2 Sat by Pulse Oximetry 95 07/20/17 05:57 Temperature 97.8 F 07/20/17 05:57 Pulse Rate 99 07/20/17 05:57 Respiratory Rate 18 07/20/17 05:57 Blood Pressure 138/85 07/20/17 05:57 O2 Sat by Pulse Oximetry 95 07/20/17 05:57 Oxygen Delivery Oxygen Delivery Room Air Medical Decision Making - Medical Records Medical records reviewed: Yes I reviewed the patient's medical records. - Lab Data Lab results reviewed: Yes I reviewed the patient's lab results. Result diagrams: 07/20/17 06:24 Lab Results 07/20/17 07/20/17 07/20/17 Range/Units 06:11 06:11 06:24 WBC 9.1 (4.3-11.1) K/mcL RBC 5.06 (4.19-5.50) M/mcL Hgb 15.8 (12.9-16.9) g/dL Hct 45.7 (37.5-50.1) % MCV 90.3 (83.0-100.0) fL MCH 31.2 (28.0-33.3) pg MCHC 34.6 (31.6-35.5) g/dL RDW 13.2 (11.5-14.5) % Plt Count 344 (140-400) K/mcL MPV 10.2 (9.4-12.4) fL Immature Gran % 0.3 (0-4) % Seg Neutrophils % 65.3 % Lymphocytes % 25.8 % Monocytes % 7.8 % Eosinophils % 0.3 % Basophils % 0.5 % Neutrophils # 5.9 (1.6-8.9) K/mcL Lymphocytes # 2.4 (0.6-4.6) K/mcL Monocytes # 0.7 (0.0-1.3) K/mcL Eosinophils # 0.0 (0.0-0.6) K/mcL Basophils # 0.1 (0.0-0.2) K/mcL Immature Plt Fraction 6.2 H (1.1-6.1) % Urine Color Yellow (Yellow) Urine Clarity Clear (Clear) Urine pH 6.0 (5.0-8.0) pH Units Ur Specific [place] 1.012 (1.010-1.025) Urine Protein Negative (Neg-Trace) mg/dL Urine Glucose (UA) Normal (Normal) mg/dL Urine Ketones Negative (Negative) mg/dL Urine Blood Negative (Negative) Urine Nitrite Negative (Negative) Urine Bilirubin Negative (Negative) Urine Urobilinogen Normal (Normal) mg/dL Ur Leukocyte Esterase Negative (Negative) Urine Opiates Screen Negative (Pkdxlm=363) ng/mL Ur Barbiturates Screen Negative (Rfzvnb=739) ng/mL Ur Phencyclidine Scrn Negative (Cutoff=25) ng/mL Ur Amphetamines Screen Negative (Zijlgt=2507) ng/mL U Benzodiazepines Scrn Negative (Jnmqrw=857) ng/mL Urine Cocaine Screen Negative (Cutoff= 300) ng/mL U Marijuana (THC) Screen Negative (Cutoff = 50) ng/mL - Radiology Data Radiology results reviewed: Yes I reviewed the patient's radiology results. - EKG Data EKG #1 EKG attestation: Yes I reviewed and interpreted this EKG. EKG results narrative: Sinus tach, rate 103, [place] interval 148, QRS 97, QTC 413, normal axis, no acute ischemic changes. S.B.A.R. - S.B.A.R. Situation: Demographics, MOA Background: Presenting Complaint, Relevant PMH, Meds, & Allergies Assessment: Vital Signs, Course and respsone to treatment, Exam Concerns, Patient/Family Expectation, Pertinant Lab Results, Outstanding Labs Recommendation: Barrier(s) to disposition, Recommendation based on pending studies, treatments, or consults S.B.A.R. Report Given to: Dr. Champion/Kathy Attestation Statement - Attestation Attestation: I, Roque Dominique, examined this patient and my medical decision-making was reviewed with the CONTAINER WASHER/PA/Advanced Practice Nurse/Resident Physician. I agree with the documented findings, disposition and treatment plan as described except to the extent set forth below. History source: Patient is unable to provide information for this note. Info was gathered from the patient, hospital staff, the patient's chart. History limitations: Patient condition Medications: As per nurses note 37-year-old male brought in by EMS for concerns of chest pain. EMS states that they transport the patient at least once a week for similar incidences. Patient has a chronic alcoholic and is slurring his speech with ataxic gait in the emergency department. Patient was incontinent of urine which happens frequently per EMS. At the time of the enema shift, patient is pending laboratory evaluation, imaging. Patient care will be transferred to Dr. Champion pending reevaluation, laboratory evaluation and disposition.
[2017-07-20 06:22] LABS: Bilirubin,Urine Negative (Negative); Blood,Urine Negative (Negative); Clarity,Urine Clear (Clear); Color,Urine Yellow (Yellow); Glucose,Urine (UA) Normal (Normal); Ketones,Urine Negative (Negative); Leukocyte Esterase,Urine Negative (Negative); Nitrite,Urine Negative (Negative); Protein,Urine Negative (Neg-Trace); Specific Gravity,Urine 1.012 (1.010-1.025); Urobilinogen,Urine Normal (Normal)
[2017-07-20 06:29] LABS: Amphetamine Screen,Urine Negative ng/mL (Cutoff=1000); Barbiturate Screen,Urine Negative ng/mL (Cutoff=200); Benzodiazepines Screen,Urine Negative ng/mL (Cutoff=200); Cannabinoid Screen,Urine Negative ng/mL (Cutoff = 50); Cocaine Screen,Urine Negative ng/mL (Cutoff= 300); Opiate Screen,Urine Negative ng/mL (Cutoff=300); Phencyclidine Screen,Urine Negative ng/mL (Cutoff=25)
[2017-07-20 06:32] LABS: Basophils # 0.1 K/mcL (0.0-0.2); Basophils % 0.5 %; Eosinophils % 0.3 %; Hematocrit 45.7 % (37.5-50.1); Hemoglobin 15.8 g/dL (12.9-16.9); Immature Granulocytes % 0.3 % (0-4); Immature Platelets 6.2 % (1.1-6.1); Lymphocytes # 2.4 K/mcL (0.6-4.6); Lymphocytes % 25.8 %; Mean Corpuscular HGB Conc 34.6 g/dL (31.6-35.5); Mean Corpuscular Hemoglobin 31.2 pg (28.0-33.3); Mean Corpuscular Volume 90.3 fL (83.0-100.0); Mean Platelet Volume 10.2 fL (9.4-12.4); Monocytes # 0.7 K/mcL (0.0-1.3); Monocytes % 7.8 %; Neutrophils # 5.9 K/mcL (1.6-8.9); Platelet Count 344 K/mcL (140-400); Red Blood Count 5.06 M/mcL (4.19-5.50); Red Cell Distribution Width 13.2 % (11.5-14.5); Segmented Neutrophils % 65.3 %
[2017-07-20 06:45] LABS: Alanine Aminotransferase 51 Units/L (0-55); Albumin 4.4 g/dL (3.5-5.0); Albumin/Globulin Ratio 1.2 (1.1-2.2); Alkaline Phosphatase 105 Units/L (38-126); Aspartate Amino Transferase 33 Units/L (5-34); BUN/Creatinine Ratio 13 (6-26); Bilirubin,Direct 0.3 mg/dL (0.0-0.5); Bilirubin,Indirect 0.3 mg/dL (0.0-1.2); Bilirubin,Total 0.6 mg/dL (0.2-1.2); Blood Urea Nitrogen 12 mg/dL (8-26); Calcium 9.8 mg/dL (8.6-10.8); Carbon Dioxide 25 mEq/L (19-29); Chloride 103 mEq/L (98-109); Ethanol 91 mg/dL (0-10); Globulin 3.7 g/dL (2.4-3.5); Glucose 109 mg/dL (70-99); Osmolality,Calculated 288 (280-300); Potassium 4.3 mEq/L (3.5-4.5); Sodium 139 mEq/L (136-145); Total Protein 8.1 g/dL (6.0-8.3); eGFR For African Americans > 60 (> 60); eGFR For Non-African Americans > 60 (> 60)
[2017-07-20 06:48] LABS: Acetaminophen < 1.0 mcg/mL (10-30); Salicylate < 5.0 mg/dL (15-30)
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
[2017-07-20] MEDS ORDERED: Ziprasidone injection 20 MG/ML VIAL IM ONE ×2 (12:06→12:07)
--- NOTE | 2017-07-20 14:33 | Electrocardiograph Report ---
[place] [id number] Test Date: 2017-07-20 Pat Name: Gabbi Miller Department: 103 Room: 1A Gender: M [employer] Rep[employer]r: : 1980 Requested By: Dudley Briseno Order Number: [id number] Reading MD: Kinsey Rodriguez Measurements Intervals [place] Rate: 103 P: 28 MT: 148 QRS: 33 QRSD: 97 T: 12 QT: 353 QTc: 413 Interpretive Statements SINUS TACHYCARDIA NONSPECIFIC T-WAVE ABNORMALITY ABNORMAL RHYTHM ECG Electronically Signed On 07-20-2017 14:31:40 EDT by Kinsey Rodriguez
[2017-07-20] MEDS ORDERED: Haloperidol Lactate 5 MG/ML VIAL IM PRN ×2 (17:06→17:24)
[2017-07-20] MEDS ORDERED: traZODone 50 MG TABLET PO PRN (17:06)
[2017-07-20] MEDS ORDERED: Mag Hydrox/Al Hydrox/Simeth 30 ML UDC PO PRN (17:06)
[2017-07-20] MEDS ORDERED: *HR* LORazepam 2 MG/ML VIAL IM PRN ×2 (17:06→17:16)
[2017-07-20] MEDS ORDERED: MOM Conc 10 ML UD.LIQ PO PRN (17:06)
[2017-07-20] MEDS ORDERED: *HR* LORazepam 1 MG TABLET PO PRN ×2 (17:06→17:16)
[2017-07-20] MEDS ORDERED: hydrOXYzine pamoate 25 MG CAPSULE PO PRN (17:06)
[2017-07-20] MEDS: Divalproex (12 HR) 250 MG TABLET PO SCH (20:59)
[2017-07-21] MEDS: Divalproex (12 HR) 250 MG TABLET PO SCH ×2 (08:59→20:45)
--- NOTE | 2017-07-21 11:05 | Psychiatry History & Physical ---
Date of Encounter: 07/21/17 Time of Encounter: 10:00 History of Present Illness Patient Stated Chief Complaint: "I see stuff." Medicare Admission Attestation: For traditional Medicare patients the provided hospital inpatient services are reasonable and necessary and in the case of services not specified as inpatient -only under 42 CFR 419.22 (n), that they are appropriately provided as inpatient services in accordance 42 CFR 412.3. For Critical Access Hospital the patient may reasonably be expected to be discharged or transferred to a hospital within 96 hours after admission to the Critical Access Hospital. Admitted From: Emergency Dept History of Present Illness: Mr. Royal is a 37 year old male with a long-standing history of schizophrenia and borderline intellectual functioning as well as alcohol and drug abuse. He presented to the hospital with recurrent hallucinations and agitation. Patient has been noncompliant with his medications. He has been using alcohol and has a past history of cannabis abuse although current UDS was negative. Patient reports he has not been taking his meds. He was compliant with medications last night. It is unclear how long he has been off his medication. Her outpatient care providers patient has been standing in front of charges for long periods of time to the point where the people at the [facility] called the manufacturing project manager to have it removed and then taken to the hospital. He has multiple admissions here for psychosis and paranoia. Patient is disheveled and clearly has not been taking care of himself. Past Med Surg Social Fam HX - Past Medical History Medical history: hyperlipidemia, hypertension, seizures - Past Psychiatric History Psychiatric history: Reports: previous psychiatric hospitalization Past psychiatric history details: Multiple previous psychiatric admissions. History of noncompliance. - Past Surgical History Surgical History: appendectomy, arthroscopy - Social History Smoking Status: Current every day smoker Smokeless Tobacco Status: No Alcohol use: heavy Drug use: marijuana - Family History Father History Unknown: Yes Adopted: Coin: haylee royal Family Member Ethnicity: Non- Living Status: Still Living Hx Family Cardiac Disorders: Yes Hx Family Respiratory Disorders: No Hx Family Cancer: No Hx Family GI Disorders: No Hx Family Endocrine Disorder: Yes Hx Family Neuromuscular Disorders: No Hx Family Neurologic Disorders: No Hx Family HEENT Disorders: No Hx Family Autoimmune Disorders: No Medications & Allergies Divalproex (12 HR) [Depakote (12 HR)] 250 mg PO BID #60 06/10/17 [Rx] Lisinopril [Zestril] 5 mg PO DAILY tab 06/10/17 [Rx] Lurasidone [Latuda] 120 mg PO HS #90 tab 06/10/17 [Rx] Propranolol [Inderal] 20 mg PO BID #60 tab 06/10/17 [Rx] Quetiapine Fumarate [Seroquel] 100 mg PO QAM #30 tab 06/10/17 [Rx] Quetiapine Fumarate [Seroquel] 150 mg PO HS #45 tab 06/10/17 [Rx] Naltrexone HCl [Revia] 50 mg PO QAM 07/20/17 [History] 3 Allergy/AdvReac Type Severity Reaction Status Date / Time No Known Allergies Allergy Verified 06/01/17 14:51 Review of Systems ROS limited: due to patient condition Psychiatric: Reports: anxiety, abnormal sleep pattern, auditory hallucinations, visual hallucinations, irritability, mood swings Mental Status Exam Patient orientation: Yes Person, Yes Place Level of alertness: Alert Patient appearance: Unkempt, Disheveled, Malodorous Behavior: calm, cooperative Psychomotor activity: Normal Eye contact: Fleeting Contact Mood description: Euthymic/stable Affect description: flat Speech pattern: Impoverished Speech volume: Soft/Quiet Thought process: [place] Thought content: No Suicidal ideation, No Homicidal ideation, Yes Paranoid delusion, Yes [facility] delusion Perceptual disturbances: Yes Auditory hallucinations, Yes Visual hallucinations Attention span: Capable of Focused Attention Memory description: Immediate Intact, Recent Impaired, Remote Impaired Patient reliability: Questionable Historian Intelligence estimate: Below Average Judgment: Poor Insight: None Exam - HEENT Head exam IM: Present: atraumatic ENT exam IM: Present: normal exam - Neurological Neurological exam IM: Present: CN II-XII intact - Extremities Extremities exam IM: Present: full ROM - Skin Skin exam IM: Present: dry Results - Vital Signs Vital signs: Temp Pulse Resp BP Pulse Ox 98.6 F 106 17 108/66 98 07/20/17 21:00 07/20/17 21:00 07/20/17 21:00 07/20/17 21:00 07/20/17 12:12 - Labs Labs: Laboratory Last Values WBC 9.1 K/mcL (4.3-11.1) 07/20/17 06:24 RBC 5.06 M/mcL (4.19-5.50) 07/20/17 06:24 Hgb 15.8 g/dL (12.9-16.9) 07/20/17 06:24 Hct 45.7 % (37.5-50.1) 07/20/17 06:24 MCV 90.3 fL (83.0-100.0) 07/20/17 06:24 MCH 31.2 pg (28.0-33.3) 07/20/17 06:24 MCHC 34.6 g/dL (31.6-35.5) 07/20/17 06:24 RDW 13.2 % (11.5-14.5) 07/20/17 06:24 Plt Count 344 K/mcL (140-400) 07/20/17 06:24 MPV 10.2 fL (9.4-12.4) 07/20/17 06:24 Immature Gran % 0.3 % (0-4) 07/20/17 06:24 Seg Neutrophils % 65.3 % 07/20/17 06:24 Lymphocytes % 25.8 % 07/20/17 06:24 Monocytes % 7.8 % 07/20/17 06:24 Eosinophils % 0.3 % 07/20/17 06:24 Basophils % 0.5 % 07/20/17 06:24 Neutrophils # 5.9 K/mcL (1.6-8.9) 07/20/17 06:24 Lymphocytes # 2.4 K/mcL (0.6-4.6) 07/20/17 06:24 Monocytes # 0.7 K/mcL (0.0-1.3) 07/20/17 06:24 Eosinophils # 0.0 K/mcL (0.0-0.6) 07/20/17 06:24 Basophils # 0.1 K/mcL (0.0-0.2) 07/20/17 06:24 Immature Plt Fraction 6.2 % (1.1-6.1) H 07/20/17 06:24 Sodium 139 mEq/L (136-145) 07/20/17 06:24 Potassium 4.3 mEq/L (3.5-4.5) 07/20/17 06:24 Chloride 103 mEq/L (98-109) 07/20/17 06:24 Carbon Dioxide 25 mEq/L (19-29) 07/20/17 06:24 BUN 12 mg/dL (8-26) 07/20/17 06:24 Creatinine 0.94 mg/dL (0.72-1.25) 07/20/17 06:24 Est GFR ( Amer) > 60 (> 60) 07/20/17 06:24 Est GFR (Non-Af Amer) > 60 (> 60) 07/20/17 06:24 BUN/Creatinine Ratio 13 (6-26) 07/20/17 06:24 Glucose 109 mg/dL (70-99) H 07/20/17 06:24 Calculated Osmolality 288 (280-300) 07/20/17 06:24 Calcium 9.8 mg/dL (8.6-10.8) 07/20/17 06:24 Total Bilirubin 0.6 mg/dL (0.2-1.2) 07/20/17 06:24 Direct Bilirubin 0.3 mg/dL (0.0-0.5) 07/20/17 06:24 Indirect Bilirubin 0.3 mg/dL (0.0-1.2) 07/20/17 06:24 AST 33 Units/L (5-34) 07/20/17 06:24 ALT 51 Units/L (0-55) 07/20/17 06:24 Alkaline Phosphatase 105 Units/L (38-126) 07/20/17 06:24 Troponin I 0.00 ng/mL (0-0.03) 07/20/17 06:24 Serum Total Protein 8.1 g/dL (6.0-8.3) 07/20/17 06:24 Albumin 4.4 g/dL (3.5-5.0) 07/20/17 06:24 Globulin 3.7 g/dL (2.4-3.5) H 07/20/17 06:24 Albumin/Globulin Ratio 1.2 (1.1-2.2) 07/20/17 06:24 Urine Color Yellow (Yellow) 07/20/17 06:11 Urine Clarity Clear (Clear) 07/20/17 06:11 Urine pH 6.0 pH Units (5.0-8.0) 07/20/17 06:11 Ur Specific [place] 1.012 (1.010-1.025) 07/20/17 06:11 Urine Protein Negative mg/dL (Neg-Trace) 07/20/17 06:11 Urine Glucose (UA) Normal mg/dL (Normal) 07/20/17 06:11 Urine Ketones Negative mg/dL (Negative) 07/20/17 06:11 Urine Blood Negative (Negative) 07/20/17 06:11 Urine Nitrite Negative (Negative) 07/20/17 06:11 Urine Bilirubin Negative (Negative) 07/20/17 06:11 Urine Urobilinogen Normal mg/dL (Normal) 07/20/17 06:11 Ur Leukocyte Esterase Negative (Negative) 07/20/17 06:11 Salicylates < 5.0 mg/dL (15-30) L 07/20/17 06:24 Urine Opiates Screen Negative ng/mL (Osiuqi=604) 07/20/17 06:11 Acetaminophen < 1.0 mcg/mL (10-30) L 07/20/17 06:24 Ur Barbiturates Screen Negative ng/mL (Jbvema=319) 07/20/17 06:11 Ur Phencyclidine Scrn Negative ng/mL (Cutoff=25) 07/20/17 06:11 Ur Amphetamines Screen Negative ng/mL (Tbfzmi=1756) 07/20/17 06:11 U Benzodiazepines Scrn Negative ng/mL (Cendig=061) 07/20/17 06:11 Urine Cocaine Screen Negative ng/mL (Cutoff= 300) 07/20/17 06:11 U Marijuana (THC) Screen Negative ng/mL (Cutoff = 50) 07/20/17 06:11 Ethyl Alcohol 69 mg/dL (0-10) H 07/20/17 07:36 Assessment and Plan (1) Schizophrenia Current visit: Yes Status: Acute Plan: Admit inpatient for safety and stabilization, Close observation, Suicide Precautions per unit protocol, Encourage participation in unit milieu, Group Therapy, Monitor sleep, Monitor appetite Additional Plan: We will admit to 1A for psychiatric stabilization. Restart home medications and monitor for side effects. Coordinate with outpatient care providers to ensure better medication compliance when patient is stable for discharge. Risks, benefits, side effects, alternatives discussed w/pt: Yes Patient agreeable to treatment: Yes Estimated Length of Stay (Days): 5 Qualifiers: Schizophrenia type: paranoid schizophrenia Qualified Code(s): F20.0 - Paranoid schizophrenia (2) Borderline intellectual functioning Current visit: No Status: Chronic Plan: Admit inpatient for safety and stabilization Additional Plan: Encourage positive coping strategies. (3) Alcohol abuse Current visit: Yes Status: Acute Plan: Admit inpatient for safety and stabilization, Close observation, Suicide Precautions per unit protocol, Encourage participation in unit milieu, Group Therapy, Monitor sleep, Monitor appetite Additional Plan: Monitor for signs of withdrawal. Encourage patient to discontinue use of alcohol and other drugs as this exacerbates his mental health conditions.
[2017-07-22] MEDS: Divalproex (12 HR) 250 MG TABLET PO SCH ×2 (09:04→20:38)
--- NOTE | 2017-07-22 10:54 | Psychiatry Progress Note ---
Date of Encounter: 07/22/17 Time of Encounter: 09:00 Subjective Interval history: Xander is seen today for follow-up. He reports he is still hearing voices. He mumbles somewhat unintelligibly but shakes his head yes or no when answering questions. He does appear disheveled and when he has not caring for his physical appearance. He is eating but most part stays withdrawn to his room. Staff have also noted patient still having issues with auditory hallucinations. He does admit to being off his meds prior to arrival. Review of Systems Psychiatric: Reports: anxiety, abnormal sleep pattern, auditory hallucinations, visual hallucinations, irritability, mood swings Objective: Exam Patient orientation: Yes Person, Yes Place Level of alertness: Alert Patient appearance: Unkempt, Disheveled Behavior: calm, cooperative Psychomotor activity: Normal Eye contact: Minimal Contact Mood description: Euthymic/stable Affect description: blunted Speech pattern: Mumbled Speech volume: Normal Thought process: [place], Slowed Thinking Thought content: No Suicidal ideation, No Homicidal ideation Perceptual disturbances: Yes Reacting to internal stimuli, Yes Auditory hallucinations, Yes Visual hallucinations Judgment: Limited Insight: Minimal Results - Vital Signs Vital Signs: Temp Pulse Resp BP Pulse Ox 97.2 F L 96 18 115/84 98 07/22/17 09:00 07/22/17 09:00 07/22/17 09:00 07/22/17 09:00 07/20/17 12:12 Assessment and Plan (1) Schizophrenia Current visit: Yes Status: Acute Plan: Continue hospitalization, Close observation, Suicide Precautions per unit protocol, Encourage participation in unit milieu, Group Therapy, Monitor sleep, Monitor appetite Additional Plan: Continue current medications. Monitor for side effects as they were restarted at his discharge doses. So far patient is tolerating these meds well and has some improvement in his auditory hallucinations. Encourage appropriate hygiene and group attendance. Risks, benefits, side effects, alternatives discussed w/pt: Yes Patient agreeable to treatment: Yes Qualifiers: Schizophrenia type: paranoid schizophrenia Qualified Code(s): F20.0 - Paranoid schizophrenia (2) Borderline intellectual functioning Current visit: No Status: Chronic (3) Alcohol abuse Current visit: Yes Status: Acute Plan: Continue hospitalization, Close observation, Suicide Precautions per unit protocol, Encourage participation in unit milieu, Group Therapy, Monitor sleep, Monitor appetite Additional Plan: Continue to monitor for withdrawal. Patient's vitals have been stable. Consult Discharge Plan - Plan
[2017-07-22] MEDS: Ibuprofen 400 MG TABLET PO PRN (17:27)
--- NOTE | 2017-07-23 08:49 | Psychiatry Progress Note ---
Date of Encounter: 07/23/17 Time of Encounter: 08:45 Subjective Interval history: Xander is seen today for follow-up. He states that the voices "are little bit less today." He is more interactive today and appears to have showered. Staff does note he is slowly returning to his baseline. He denies side effects of his psychiatric medication. He does report he has a place to [address] Review of Systems Psychiatric: Reports: anxiety, abnormal sleep pattern, auditory hallucinations, visual hallucinations, irritability, mood swings Objective: Exam Patient orientation: Yes Person, Yes Circumstance Level of alertness: Alert Patient appearance: Well-nourished, Unkempt Behavior: calm, cooperative Psychomotor activity: Normal Eye contact: Minimal Contact Mood description: Euthymic/stable Affect description: constricted Speech pattern: Mumbled Speech volume: Normal Thought process: [place] Thought content: No Suicidal ideation, No Homicidal ideation Perceptual disturbances: Yes Auditory hallucinations, No Visual hallucinations Judgment: Limited Insight: Minimal Results - Vital Signs Vital Signs: Temp Pulse Resp BP Pulse Ox 96.6 F L 68 16 134/79 98 07/22/17 19:57 07/22/17 19:57 07/22/17 19:57 07/22/17 19:57 07/20/17 12:12 Assessment and Plan (1) Schizophrenia Current visit: Yes Status: Acute Plan: Continue hospitalization, Close observation, Suicide Precautions per unit protocol, Encourage participation in unit milieu, Group Therapy, Monitor sleep, Monitor appetite Additional Plan: Continue current medications. Patient's symptoms appear to be improving. Continue to monitor for side effects. As patient returns to baseline and we will try to come up with a plan that we will increase compliance with outpatient medications and encourage patient to discontinue substance abuse. 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
[2017-07-23] MEDS: Divalproex (12 HR) 250 MG TABLET PO SCH ×2 (08:55→20:14)
[2017-07-24] MEDS: Divalproex (12 HR) 250 MG TABLET PO SCH ×2 (08:53→20:42)
--- NOTE | 2017-07-24 10:47 | Psychiatry Progress Note ---
Date of Encounter: 07/24/17 Time of Encounter: 09:59 Subjective Interval history: Patient seen and interviewed. History and physical examination was reviewed. Patient continues to make progress in his reporting of doing fairly well today. He reported that the voices have subsided. His ADLs are improving. He is denying any suicidal or homicidal ideations. He is tolerating medications fairly well. Patient is awaiting to be transferred to [facility] which will probably happen on Wednesday Review of Systems Psychiatric: Reports: anxiety, difficulty concentrating Objective: Exam Patient orientation: Yes Person, Yes Time, Yes Place Level of alertness: Alert Patient appearance: Unkempt Behavior: anxious Psychomotor activity: Normal Eye contact: Maintains Eye Contact Mood description: Anxious Affect description: constricted Speech pattern: Mumbled Speech volume: Normal Thought process: [place] Thought content: No Suicidal ideation, No Homicidal ideation, No Overt delusions Perceptual disturbances: No Auditory hallucinations, No Visual hallucinations Judgment: Limited Insight: Minimal Results - Vital Signs Vital Signs: Temp Pulse Resp BP Pulse Ox 98.0 F 103 18 105/71 98 07/24/17 09:00 07/24/17 09:00 07/24/17 09:00 07/24/17 09:00 07/20/17 12:12 Assessment and Plan (1) Schizophrenia, paranoid, chronic with acute exacerbation Current visit: No Status: Acute Plan: Continue hospitalization, Close observation, Suicide Precautions per unit protocol, Encourage participation in unit milieu, Group Therapy, Monitor sleep, Monitor appetite Additional Plan: Continue with current regimen of medications. 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 While there, you will be seen daily by the clinic counselors and insurance case manager, both individually and in group. You will also be scheduled to see the psychiatric provider for outpatient psychiatric assessment and medication management.)
[2017-07-25] MEDS: Divalproex (12 HR) 250 MG TABLET PO SCH ×2 (09:07→20:35)
--- NOTE | 2017-07-25 11:09 | Psychiatry Progress Note ---
Date of Encounter: 07/25/17 Time of Encounter: 10:55 Subjective Interval history: Patient seen and interviewed. Continue to do well. Patient has pretty much return back to his baseline level. He is denying any overt psychotic or manic symptoms. He is tolerating medications fairly well. Denying any suicidal or homicidal ideations. Reporting mood to be stable. He is awaiting placement. Review of Systems Psychiatric: Reports: anxiety, difficulty concentrating Objective: Exam Patient orientation: Yes Person, Yes Time, Yes Place Level of alertness: Alert Patient appearance: Unkempt, Disheveled Behavior: calm, anxious Psychomotor activity: Normal Eye contact: Maintains Eye Contact Mood description: Euthymic/stable Affect description: congruent with mood, constricted Speech pattern: Normal rate, Normal rhythm, Normal tone Speech volume: Normal Thought process: [place] Thought content: No Suicidal ideation, No Homicidal ideation, No Overt delusions Perceptual disturbances: No Auditory hallucinations, No Visual hallucinations Judgment: Fair Insight: Partial Results - Vital Signs Vital Signs: Temp Pulse Resp BP Pulse Ox 97.6 F 75 16 98/72 98 07/24/17 20:25 07/24/17 20:25 07/24/17 20:25 07/24/17 20:25 07/20/17 12:12 Assessment and Plan (1) Schizophrenia, paranoid, chronic with acute exacerbation Current visit: No Status: Acute Plan: Continue hospitalization, Close observation, Suicide Precautions per unit protocol, Encourage participation in unit milieu, Group Therapy, Monitor sleep, Monitor appetite Additional Plan: Patient is back to his baseline functioning. Awaiting placement. 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 While there, you will be seen daily by the clinic counselors and skilled nursing case manager, both individually and in group. You will also be scheduled to see the psychiatric provider for outpatient psychiatric assessment and medication management.)
[2017-07-25] MEDS: Ibuprofen 400 MG TABLET PO PRN (15:19)
[2017-07-26] MEDS: Divalproex (12 HR) 250 MG TABLET PO SCH ×2 (09:26→20:49)
--- NOTE | 2017-07-26 14:31 | Psychiatry Progress Note ---
Date of Encounter: 07/26/17 Time of Encounter: 14:28 Subjective Interval history: Patient seen for follow-up. Staff report she is disorganized, poorly attentive. His ADLs. He is compliant with medication, he is seclusive to his room most of the time. Patient has poor insight into his illness and alcohol abuse. He tells me that he lives in a room by himself and describes it as clean. He is disheveled, malodorous and labile. Review of Systems Psychiatric: Reports: anxiety, difficulty concentrating Objective: Exam Patient orientation: Yes Person, Yes Time, Yes Place Level of alertness: Alert Patient appearance: Appropriate, Unkempt, Disheveled, Malodorous, Obese Behavior: calm, cooperative, distractible Psychomotor activity: Normal Eye contact: Fleeting Contact Mood description: Euthymic/stable, Anxious, Labile Affect description: congruent with mood, labile, dysphoric Speech pattern: Normal rate, Normal rhythm, Normal tone, Disorganized, Limited, Impoverished Speech volume: Normal Thought process: Linear, Circumstantial, Thought Blocking Thought content: No Suicidal ideation, No Homicidal ideation, No Overt delusions Perceptual disturbances: No Auditory hallucinations, No Visual hallucinations Judgment: Fair Insight: Partial Results - Vital Signs Vital Signs: Temp Pulse Resp BP Pulse Ox 97.4 F L 87 16 100/75 98 07/26/17 09:00 07/26/17 09:00 07/26/17 09:00 07/26/17 09:00 07/20/17 12:12 Consult Discharge Plan - Plan Referrals: [facility] [Outside] (You are going into mental health respite at [facility] on discharge from the hospital. While there, you will be seen daily by the clinic counselors and housing case manager, both individually and in group. You will also be scheduled to see the psychiatric provider for outpatient psychiatric assessment and medication management.)
[2017-07-26] MEDS ORDERED: Nicotine 2 MG GUM BC PRN (15:00)
[2017-07-27 09:36] VITALS: BP 105/74
--- NOTE | 2017-07-27 10:23 | Discharge Summary ---
Date of Encounter: 07/27/17 Time of Encounter: 10:00 Medications - Discharge Medications Prescriptions: Divalproex (12 HR) [Depakote (12 HR)] 250 mg PO BID #60 tablet.dr AgueroaiFENesin ER [Mucinex] 600 mg PO BID #60 tbbp.12hr Lisinopril [Zestril] 5 mg PO DAILY #30 tab Lurasidone [Latuda] 120 mg PO HS #90 tab Naltrexone HCl [Revia] 50 mg PO QAM #30 tablet Propranolol [Inderal] 20 mg PO BID #60 tab Quetiapine Fumarate [Seroquel] 100 mg PO QAM #30 tab Quetiapine Fumarate [Seroquel] 150 mg PO HS #45 tablet Quetiapine Fumarate [Seroquel] 150 mg PO HS #45 tab 06/10/17 [Rx] Divalproex (12 HR) [Depakote (12 HR)] 250 mg PO BID #60 tablet. 07/27/17 [Rx] LaciaiFENesin ER [Mucinex] 600 mg PO BID #60 tbbp.12hr 07/27/17 [Rx] Lisinopril [Zestril] 5 mg PO DAILY #30 tab 07/27/17 [Rx] Lurasidone [Latuda] 120 mg PO HS #90 tab 07/27/17 [Rx] Naltrexone HCl [Revia] 50 mg PO QAM #30 tablet 07/27/17 [Rx] Propranolol [Inderal] 20 mg PO BID #60 tab 07/27/17 [Rx] Quetiapine Fumarate [Seroquel] 100 mg PO QAM #30 tab 07/27/17 [Rx] Quetiapine Fumarate [Seroquel] 150 mg PO HS #45 tablet 07/27/17 [Rx] 3 Allergy/AdvReac Type Severity Reaction Status Date / Time No Known Allergies Allergy Verified 06/01/17 14:51 Results Procedures and tests throughout hospitalization: Completed Lab Orders Category Date Time Status Valproate Routine Lab 07/27/17 06:58 Received Provider Date of admission: 07/20/17 11:48 Primary care physician: PCP NONE Discharging clinician: Antonio Philip Assessment and Plan - Patient/Caregiver Discharge Instructions Activity: resume usual activities as tolerated Diet: regular diet - Follow up Plan Follow up with: [facility] [Outside] (You are going into mental health respite at [facility] on discharge from the hospital. While there, you will be seen daily by the clinic counselors and residential case manager, both individually and in group. You will also be scheduled to see the psychiatric provider for outpatient psychiatric assessment and medication management.) Functional capacity at discharge: independent ambulation Overall status at discharge: Stable Disposition: Home, Self-Care Hospital Course Hospital course: Mr. Miller is a 37 year old male with long history of schizophrenia and alcohol abuse admitted for bizarre behavior and psychosis and causing disturbance in the community. For details of the admission please see H&P On the unit the patient was started on his medication including Depakote, Seroquel and latuda. Initially patient was showing internal stimulation and hallucinations, gradually he became more alert and organized, and he was compliant with medication and partially participated in activities and groups, his ADLs were poor. There was no report of any agitation episodes, sleep and appetite were stable. His discharge plans were completed by social service worker. On discharge patient was alert and oriented, nondelusional and denied any hallucinations and denied any suicidal ideation, he was educated about abstaining from alcohol and educated about his medication compliance. He was discharged in stable condition. - Time Spent with Patient Total time spent providing and/or coordinating discharge services: Less than 30 minutes Quality - Multiple Antipsychotics Patient discharged on 2 or more antipsychotic medications: Yes - Justification Documentation of: History 3 failed trials of monotherapy (Patient could not be stabilized on monotherapy, he did not tolerate several antipsychotics and the current combination is working and safe.) Procedures - Procedures Procedures: Medication Management, Crisis Stabilization, Supportive Therapy, Group Therapy, Psychoeducational Therapy Mental Status Exam - Mental Status Exam Patient orientation: Yes Person, Yes Time, Yes Place Level of alertness: Alert Patient appearance: Appropriate, Unkempt Behavior: calm, cooperative Psychomotor activity: Normal Eye contact: Maintains Eye Contact Mood description: Euthymic/stable Affect description: congruent with mood, euthymic Speech pattern: Normal rate, Normal rhythm, Normal tone, Appropriate, Limited, Impoverished Speech Volume: Normal Thought process: Linear, Goal Oriented Thought Content: No Suicidal ideation, No Homicidal ideation, No Overt delusions Perceptual Disturbances: No Auditory hallucinations, No Visual hallucinations Judgment: Limited Insight: Partial
[2017-07-27] MEDS: Divalproex (12 HR) 250 MG TABLET PO SCH (11:09)
== END 2017-07-27 13:30 | disposition home or self-care (01) | DRG 750 ==
LOC: EMEROO 05:55 → SUATTDRO 11:48 → 1ANU 11:48
PROVIDERS: ADMIT Student in an Organized Health Care Education/Training Program; ATTEND Psychiatry & Neurology Psychiatry

== ENCOUNTER 2017-08-06 15:23 | Inpatient (IN) ==
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
[2017-08-06 17:05] LABS: Basophils % 0.4 %; Eosinophils # 0.1 K/mcL (0.0-0.6); Eosinophils % 0.8 %; Hematocrit 44.5 % (37.5-50.1); Hemoglobin 15.3 g/dL (12.9-16.9); Immature Granulocytes % 0.2 % (0-4); Lymphocytes # 2.5 K/mcL (0.6-4.6); Lymphocytes % 27.5 %; Mean Corpuscular HGB Conc 34.4 g/dL (31.6-35.5); Mean Corpuscular Hemoglobin 30.8 pg (28.0-33.3); Mean Corpuscular Volume 89.7 fL (83.0-100.0); Mean Platelet Volume 10.4 fL (9.4-12.4); Monocytes # 0.8 K/mcL (0.0-1.3); Monocytes % 8.7 %; Neutrophils # 5.6 K/mcL (1.6-8.9); Platelet Count 357 K/mcL (140-400); Red Blood Count 4.96 M/mcL (4.19-5.50); Red Cell Distribution Width 12.9 % (11.5-14.5); Segmented Neutrophils % 62.4 %
[2017-08-06 17:07] LABS: Bilirubin,Urine Negative (Negative); Blood,Urine Negative (Negative); Clarity,Urine Clear (Clear); Color,Urine Yellow (Yellow); Glucose,Urine (UA) Normal (Normal); Ketones,Urine Negative (Negative); Leukocyte Esterase,Urine Small (Negative); Nitrite,Urine Negative (Negative); Protein,Urine Negative (Neg-Trace); Specific Gravity,Urine 1.018 (1.010-1.025); Urobilinogen,Urine Normal (Normal)
[2017-08-06 17:10] LABS: Bacteria,Urine None Seen per hpf (None-Few); Hyaline Casts,Urine None Seen per lpf (None-Few); RBC,Urine 0-3 per hpf (0-3); Squamous Epithelial Cell,Urine Few per lpf (None-Few)
[2017-08-06 17:11] LABS: Amphetamine Screen,Urine Negative ng/mL (Cutoff=1000); Barbiturate Screen,Urine Negative ng/mL (Cutoff=200); Benzodiazepines Screen,Urine Negative ng/mL (Cutoff=200); Cannabinoid Screen,Urine Positive ng/mL (Cutoff = 50); Cocaine Screen,Urine Positive ng/mL (Cutoff= 300); Opiate Screen,Urine Negative ng/mL (Cutoff=300); Phencyclidine Screen,Urine Negative ng/mL (Cutoff=25)
[2017-08-06 17:21] LABS: BUN/Creatinine Ratio 6 (6-26); Blood Urea Nitrogen 6 mg/dL (8-26); Calcium 9.3 mg/dL (8.6-10.8); Carbon Dioxide 24 mEq/L (19-29); Chloride 105 mEq/L (98-109); Glucose 88 mg/dL (70-99); Osmolality,Calculated 287 (280-300); Potassium 4.1 mEq/L (3.5-4.5); Sodium 140 mEq/L (136-145); eGFR For African Americans > 60 (> 60); eGFR For Non-African Americans > 60 (> 60)
[2017-08-06 17:22] LABS: Acetaminophen < 1.0 mcg/mL (10-30); Ethanol 24 mg/dL (0-10); Salicylate < 5.0 mg/dL (15-30)
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
[2017-08-06] MEDS ORDERED: *HR* LORazepam 2 MG/ML VIAL IM PRN (19:42)
[2017-08-06] MEDS ORDERED: MOM Conc 10 ML UD.LIQ PO PRN (19:42)
[2017-08-06] MEDS ORDERED: *HR* LORazepam 1 MG TABLET PO PRN (19:42)
[2017-08-06] MEDS ORDERED: Haloperidol Lactate 5 MG/ML VIAL IM PRN (19:42)
[2017-08-06] MEDS ORDERED: traZODone 50 MG TABLET PO PRN (19:42)
[2017-08-06] MEDS ORDERED: Mag Hydrox/Al Hydrox/Simeth 30 ML UDC PO PRN (19:42)
[2017-08-06] MEDS ORDERED: hydrOXYzine pamoate 25 MG CAPSULE PO PRN (19:42)
[2017-08-06] MEDS ORDERED: NALTREXONE HCL 50 MG TABLET PO SCH (20:00)
[2017-08-06] MEDS: Divalproex (12 HR) 250 MG TABLET PO SCH (21:57)
[2017-08-07] MEDS: Divalproex (12 HR) 250 MG TABLET PO SCH ×2 (09:46→20:08)
[2017-08-07] MEDS: NALTREXONE PO SCH (09:48)
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
[2017-08-07] MEDS: Acetaminophen 325 MG TABLET PO PRN (20:08)
[2017-08-08] MEDS: Divalproex (12 HR) 250 MG TABLET PO SCH ×2 (08:28→21:03)
[2017-08-08] MEDS: NALTREXONE PO SCH (08:29)
--- NOTE | 2017-08-08 13:00 | Psychiatry Progress Note ---
Date of Encounter: 08/08/17 Time of Encounter: 12:58 Subjective Interval history: Patient seen and interviewed. Patient is extremely disorganized and delusional. He has bedsheets laid all over on the floor of his room When I asked him the reason he reported that there are 3 woman who were his friends and are in the room and he is making beds for them. He is endorsing depression and hopelessness. His ADLs are very poor. Minimum interaction with staff and peers and mostly isolated in his room. He does report hearing some voices. Review of Systems Psychiatric: Reports: depression, suicidal ideation, auditory hallucinations, difficulty concentrating, hopelessness, mood swings Objective: Exam Patient orientation: Yes Person, Yes Time, Yes Place Level of alertness: Alert Patient appearance: Unkempt, Disheveled, Malodorous Behavior: nervous, anxious, guarded, suspicious Psychomotor activity: Slowed Eye contact: Minimal Contact Mood description: Depressed Affect description: constricted, dysphoric Speech pattern: Rambling, Pressured Speech volume: Soft/Quiet Thought process: Loose Associations Thought content: Yes Suicidal ideation, Yes Overt delusions Perceptual disturbances: Yes Auditory hallucinations Judgment: Limited Insight: Minimal Results - Vital Signs Vital Signs: Temp Pulse Resp BP Pulse Ox 97.4 F L 93 18 144/86 100 08/08/17 09:00 08/08/17 09:00 08/08/17 09:00 08/08/17 09:00 08/06/17 15:37 Assessment and Plan (1) Schizophrenia, paranoid, chronic with acute exacerbation Current visit: No Status: Acute Plan: Continue hospitalization, Close observation, Suicide Precautions per unit protocol, Encourage participation in unit milieu, Group Therapy, Monitor sleep, Monitor appetite Additional Plan: Continue with current regimen of medications Risks, benefits, side effects, alternatives discussed w/pt: Yes Patient agreeable to treatment: Yes (2) Polysubstance abuse Current visit: No Status: Acute Plan: Continue hospitalization, Close observation, Suicide Precautions per unit protocol, Encourage participation in unit milieu, Group Therapy, Monitor sleep, Monitor appetite Risks, benefits, side effects, alternatives discussed w/pt: Yes Patient agreeable to treatment: Yes (3) Borderline intellectual functioning Current visit: No Status: Chronic Plan: Continue hospitalization, Close observation, Suicide Precautions per unit protocol, Encourage participation in unit milieu, Group Therapy, Monitor sleep, Monitor appetite Risks, benefits, side effects, alternatives discussed w/pt: Yes Patient agreeable to treatment: Yes Consult Discharge Plan - Plan Referrals: NONE,PCP [Primary Care Provider] -
[2017-08-08] MEDS: Acetaminophen 325 MG TABLET PO PRN (14:55)
--- NOTE | 2017-08-09 06:57 | Electrocardiograph Report ---
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
[2017-08-09] MEDS: Divalproex (12 HR) 250 MG TABLET PO SCH ×2 (08:43→20:51)
[2017-08-09] MEDS: NALTREXONE PO SCH (08:44)
--- NOTE | 2017-08-09 11:31 | Psychiatry Progress Note ---
Date of Encounter: 08/09/17 Time of Encounter: 11:27 Subjective Interval history: Client very familiar to [place]. This time he presented to the ER with chest pain from using drugs. However, also experiencing command AH so admitted to . Staff continually discharge him to rehab centers/safe locations but client never stays. Now he is not welcome back most places. Has case management but there has been no outpatient follow through on Vivitrol or DD services as recommended in discharge plans from . Currently client is taking Depakote, Latuda, and Seroquel. Still actively psychotic but he reports AH are getting better. Denies SI/HI. Will continue to titrate meds. Client reports he now has his own apartment. Will attempt to verify this for discharge planning. Review of Systems Constitutional: Denies: fever, chills, weakness, weight change Eyes: Denies: eye pain, vision change Ears, Nose, Throat: Denies: ear pain, throat pain, dental pain, hearing loss, congestion Cardiovascular: Denies: chest pain, palpitations, dyspnea on exertion Respiratory: Denies: cough, dyspnea, wheezes Gastrointestinal: Denies: abdominal pain, nausea, vomiting, diarrhea, constipation Musculoskeletal: Denies: joint swelling, joint pain Neurological: Denies: headache, weakness, numbness, memory loss Psychiatric: Reports: depression, suicidal ideation, auditory hallucinations, difficulty concentrating, hopelessness, mood swings Objective: Exam Patient orientation: Yes Person, Yes Time, Yes Place Level of alertness: Alert Patient appearance: Unkempt, Disheveled Behavior: restless Psychomotor activity: Repetitive movements Eye contact: Maintains Eye Contact Mood description: Anxious Affect description: congruent with mood Speech pattern: Rambling Speech volume: Normal Thought process: Goal Oriented Thought content: No Suicidal ideation, No Homicidal ideation Perceptual disturbances: Yes Auditory hallucinations Judgment: Limited Insight: Minimal Results - Vital Signs Vital Signs: Temp Pulse Resp BP Pulse Ox 98 F 88 18 126/77 100 08/09/17 09:00 08/09/17 09:00 08/09/17 09:00 08/09/17 09:00 08/06/17 15:37 Assessment and Plan (1) Schizophrenia Current visit: No Status: Acute Plan: Continue hospitalization, Close observation, Suicide Precautions per unit protocol, Encourage participation in unit milieu, Group Therapy, Monitor sleep, Monitor appetite Risks, benefits, side effects, alternatives discussed w/pt: Yes Patient agreeable to treatment: Yes Qualifiers: Schizophrenia type: paranoid schizophrenia Qualified Code(s): F20.0 - Paranoid schizophrenia Consult Discharge Plan - Plan Referrals: NONE,PCP [Primary Care Provider] -
[2017-08-09] MEDS: Acetaminophen 325 MG TABLET PO PRN (15:32)
[2017-08-10] MEDS: Divalproex (12 HR) 250 MG TABLET PO SCH ×2 (08:18→20:28)
[2017-08-10] MEDS: NALTREXONE PO SCH (08:51)
[2017-08-10] MEDS: Acetaminophen 325 MG TABLET PO PRN ×2 (15:23→20:28)
--- NOTE | 2017-08-10 17:36 | Psychiatry Progress Note ---
Date of Encounter: 08/10/17 Time of Encounter: 17:34 Subjective Interval history: Still psychotic but reports that he is feeling better. States his AH are less. Seems brighter to this selling underwriter. More affect and less disheveled. According to staff he is spending all of his time in his room but that is also typical for him. Has his own apartment and wants to return there. Discussed discharge tomorrow and client is agreeable. Has case management. Linked with outpatient services. Review of Systems Constitutional: Denies: fever, chills, weakness, weight change Eyes: Denies: eye pain, vision change Ears, Nose, Throat: Denies: ear pain, throat pain, dental pain, hearing loss, congestion Cardiovascular: Denies: chest pain, palpitations, dyspnea on exertion Respiratory: Denies: cough, dyspnea, wheezes Gastrointestinal: Denies: abdominal pain, nausea, vomiting, diarrhea, constipation Musculoskeletal: Denies: joint swelling, joint pain Neurological: Denies: headache, weakness, numbness, memory loss Psychiatric: Reports: depression, suicidal ideation, auditory hallucinations, difficulty concentrating, hopelessness, mood swings Objective: Exam Patient orientation: Yes Person, Yes Time, Yes Place Level of alertness: Alert Patient appearance: Disheveled Behavior: calm, cooperative Psychomotor activity: Increased Eye contact: Maintains Eye Contact Mood description: Euthymic/stable Affect description: congruent with mood Speech pattern: Normal rate, Normal rhythm, Normal tone Speech volume: Normal Thought process: Goal Oriented Thought content: No Suicidal ideation, No Homicidal ideation, No Overt delusions Perceptual disturbances: Yes Reacting to internal stimuli, Yes Auditory hallucinations Judgment: Limited Insight: Partial Results - Vital Signs Vital Signs: Temp Pulse Resp BP Pulse Ox 97.8 F 68 16 112/76 100 08/10/17 09:00 08/10/17 09:00 08/10/17 09:00 08/10/17 09:00 08/06/17 15:37 Assessment and Plan (1) Schizophrenia Current visit: No Status: Acute Plan: Continue hospitalization, Close observation, Suicide Precautions per unit protocol, Encourage participation in unit milieu, Group Therapy, Monitor sleep, Monitor appetite Risks, benefits, side effects, alternatives discussed w/pt: Yes Patient agreeable to treatment: Yes Qualifiers: Schizophrenia type: paranoid schizophrenia Qualified Code(s): F20.0 - Paranoid schizophrenia Consult Discharge Plan - Plan Referrals: [facility] [Outside] - 08/13/17 11:00 am (The above appointment is with Racquel Blair for case management services. You will also see Yaritza Ortiz for outpatient psychiatric assessment and medication management services on 08/31/2017 at 2:30pm.) [facility] [Outside] - 08/17/17 3:00 pm (The above appointment is with Yan Marley for Vivitrol assessment. Please bring the following items with you: insurance card, photo ID, medication list. If you are unable to keep this appointment, 24 hour business notice of cancellation is expected. )
[2017-08-11] MEDS ORDERED: NALTREXONE HCL 50 MG TABLET PO SCH (09:00)
[2017-08-11 09:09] VITALS: BP 118/83
[2017-08-11] MEDS: Divalproex (12 HR) 250 MG TABLET PO SCH (09:23)
--- NOTE | 2017-08-11 11:02 | Discharge Summary ---
Date of Encounter: 08/11/17 Time of Encounter: 10:58 Diagnosis - Discharge Diagnosis (1) Schizophrenia Status: Acute Qualifiers: Schizophrenia type: paranoid schizophrenia Qualified Code(s): F20.0 - Paranoid schizophrenia Medications - Discharge Medications Prescriptions: Divalproex (12 HR) [Depakote (12 HR)] 250 mg PO BID #42 tablet. Lurasidone [Latuda] 120 mg PO HS #63 tablet Naltrexone HCl 50 mg PO QAM #21 tablet Quetiapine Fumarate [Seroquel] 100 mg PO QAM #21 tablet Quetiapine Fumarate [Seroquel] 200 mg PO HS #42 tablet Divalproex (12 HR) [Depakote (12 HR)] 250 mg PO BID #42 tablet. 08/11/17 [Rx] Lisinopril [Zestril] 5 mg PO DAILY tablet 08/11/17 [Rx] Lurasidone [Latuda] 120 mg PO HS #63 tablet 08/11/17 [Rx] Naltrexone HCl 50 mg PO QAM #21 tablet 08/11/17 [Rx] Propranolol [Inderal] 20 mg PO BID tablet 08/11/17 [Rx] Quetiapine Fumarate [Seroquel] 100 mg PO QAM #21 tablet 08/11/17 [Rx] Quetiapine Fumarate [Seroquel] 200 mg PO HS #42 tablet 08/11/17 [Rx] 3 Allergy/AdvReac Type Severity Reaction Status Date / Time No Known Allergies Allergy Verified 06/01/17 14:51 Provider Date of admission: 08/09/17 14:39 Primary care physician: PCP NONE Discharging clinician: Kitty Chand Assessment and Plan - Patient/Caregiver Discharge Instructions Activity: resume usual activities as tolerated Diet: regular diet - Follow up Plan Follow up with: [facility] [Outside] - 08/13/17 11:00 am (The above appointment is with Racquel Blair for case management services. You will also see Yaritza Ortiz for outpatient psychiatric assessment and medication management services on 08/31/2017 at 2:30pm.) [facility] [place] [Outside] - 08/17/17 3:00 pm (The above appointment is with Yan Marley for Vivitrol assessment. Please bring the following items with you: insurance card, photo ID, medication list. If you are unable to keep this appointment, 24 hour business notice of cancellation is expected. ) Overall status at discharge: Stable Disposition: Home, Self-Care Hospital Course Hospital course: Mr. Miller is a 37 year old male who was admitted secondary to psychosis. He has psychotic symptoms at baseline. However, he also uses street drugs and this causes an exacerbation in his symptoms. His home meds were adjusted for clinical effect and his AH had improved by the time of discharge. Vincent was denying any command hallucinations and he felt his remaining voices were manageable. He denied experiencing any SI/HI. His hospitalization was uneventful. He spent most of his time in his room which is typical of him. He has case management services. They will be doing daily med drops. He also has a Vivitrol assessment set up. He no longer qualifies for respite care so he was discharged to his own apartment. - Time Spent with Patient Total time spent providing and/or coordinating discharge services: Quality - Multiple Antipsychotics Patient discharged on 2 or more antipsychotic medications: Yes - Justification Documentation of: History 3 failed trials of monotherapy (Seroquel, Latuda, Haldol) Procedures - Procedures Procedures: Medication Management, Crisis Stabilization, Supportive Therapy, Group Therapy Mental Status Exam - Mental Status Exam Patient orientation: Yes Person, Yes Time, Yes Place Level of alertness: Alert Patient appearance: Disheveled Behavior: calm, cooperative Psychomotor activity: Increased Eye contact: Maintains Eye Contact Mood description: Euthymic/stable Affect description: congruent with mood Speech pattern: Limited Speech Volume: Normal Thought process: Goal Oriented Thought Content: No Suicidal ideation, No Homicidal ideation, No Overt delusions Perceptual Disturbances: Yes Auditory hallucinations Judgment: Limited Insight: Partial
== END 2017-08-11 14:15 | disposition home or self-care (01) | DRG 750 ==
LOC: 1ANU 15:23 → EMEROO 15:23 → SUATTDRO 19:04 → 1ANU 19:19
PROVIDERS: ADMIT Psychiatry & Neurology Psychiatry; ATTEND Psychiatry & Neurology Psychiatry

== ENCOUNTER 2017-10-19 20:29 | Inpatient (IN) ==
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
[2017-10-19 20:54] LABS: Bilirubin,Urine Small (Negative); Blood,Urine Negative (Negative); Clarity,Urine Cloudy (Clear); Color,Urine Orange (Yellow); Glucose,Urine (UA) Normal (Normal); Ketones,Urine Trace mg/dL (Negative); Leukocyte Esterase,Urine Small (Negative); Nitrite,Urine Positive (Negative); Protein,Urine 30 mg/dL (Neg-Trace); Specific Gravity,Urine 1.029 (1.010-1.025); Urobilinogen,Urine Normal (Normal)
[2017-10-19 20:56] LABS: Bacteria,Urine Many per hpf (None-Few); Hyaline Casts,Urine None Seen per lpf (None-Few); RBC,Urine 0-3 per hpf (0-3); Squamous Epithelial Cell,Urine Many per lpf (None-Few)
[2017-10-19 20:59] LABS: Basophils # 0.1 K/mcL (0.0-0.2); Basophils % 0.4 %; Eosinophils # 0.1 K/mcL (0.0-0.6); Eosinophils % 0.4 %; Hematocrit 45.7 % (37.5-50.1); Immature Granulocytes % 0.3 % (0-4); Lymphocytes # 2.6 K/mcL (0.6-4.6); Lymphocytes % 18.7 %; Mean Corpuscular Hemoglobin 31.1 pg (28.0-33.3); Mean Corpuscular Volume 88.7 fL (83.0-100.0); Mean Platelet Volume 10.9 fL (9.4-12.4); Monocytes # 1.6 K/mcL (0.0-1.3); Monocytes % 11.2 %; Neutrophils # 9.7 K/mcL (1.6-8.9); Platelet Count 354 K/mcL (140-400); Red Blood Count 5.15 M/mcL (4.19-5.50)
[2017-10-19 21:19] LABS: Acetaminophen < 1.0 mcg/mL (10-30); Ethanol < 10 mg/dL (0-10); Salicylate < 5.0 mg/dL (15.0-30.0)
[2017-10-19 21:22] LABS: BUN/Creatinine Ratio 15 (6-26); Blood Urea Nitrogen 17 mg/dL (6-20); Calcium 10.2 mg/dL (8.6-10.3); Carbon Dioxide 23 mEq/L (23-29); Chloride 106 mEq/L (98-107); Glucose 127 mg/dL (70-105); Osmolality,Calculated 293 (280-300); Potassium 3.9 mEq/L (3.5-5.1); Sodium 140 mEq/L (136-145); eGFR For African Americans > 60 (> 60); eGFR For Non-African Americans > 60 (> 60)
[2017-10-19 21:34] LABS: Amphetamine Screen,Urine Negative ng/mL (Cutoff=1000); Barbiturate Screen,Urine Negative ng/mL (Cutoff=200); Benzodiazepines Screen,Urine Negative ng/mL (Cutoff=200); Cannabinoid Screen,Urine Positive ng/mL (Cutoff = 50); Cocaine Screen,Urine Negative ng/mL (Cutoff= 300); Opiate Screen,Urine Negative ng/mL (Cutoff=300); Phencyclidine Screen,Urine Negative ng/mL (Cutoff=25)
[2017-10-19] MEDS ORDERED: 0.9 % Sodium Chloride 1,000 ML IVC ONE (21:52)
[2017-10-19] MEDS ORDERED: cefTRIAXone 1,000 MG in Water for inj. (sterile) 10 ML IVP ONE (21:53)
[2017-10-19 22:10] LABS: Valproate < 2 mcg/mL (50-100)
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
[2017-10-20] MEDS ORDERED: Ondansetron 4 MG/2 ML VIAL IVP PRN (08:38)
[2017-10-20] MEDS ORDERED: Naloxone 0.4 MG/ML INJ IVP PRN (08:38)
[2017-10-20] MEDS ORDERED: 0.9 % Sodium Chloride 1,000 ML IVC SCH (08:45)
--- NOTE | 2017-10-20 09:32 | Internal Med History&Physical ---
Date of Encounter: 10/20/17 Time of Encounter: 08:35 Assessment and Plan (1) Acute psychosis Current visit: Yes Status: Acute Patient has a history of long-standing psychiatric issues and has been on multiple medications-none of which can be verified given the patient's mental condition right now. He has been placed in a room with a sitter to oversee that he does not hurt himself. He did not verbalize this to me but there is a clear documentation from caregivers from last night that the patient refuses to sleep because he is afraid that the angels of will come for him if he does that at this point he does not possess any capacity to take medical decisions. He will be evaluated closely by psychiatry and most likely institutionalized I will defer treatment for his acute psychosis to psychiatry he is not belligerent or attempting to hurt self or somebody else at this point continue to monitor very closely he is able to eat well and has almost completely finished his breakfast He lacks medical capacity to take any medical decisions and hence cannot leave against medical advice (2) SIRS (systemic inflammatory response syndrome) Current visit: Yes Status: Acute Leukocytosis of 14,000 without left shift and tachycardia on admission his urine analysis did suggest a UTI and Rocephin has been given as a one-time dose. will follow urine cultures and may need a short course of oral antibiotics depending on culture and sensitivities. He has been given one fluid bolus in the ER and his tachycardia did improve although currently he is still in the 100s I will initiate IV fluids continuously and repeat CBC and BMP tomorrow morning once his leukocytosis improves and we have a plan as far as treatment of his urinary tract infection merely outlined-was likely within the next 24 to 48 hours, he could be medically cleared from our service for disposition as per psychiatry I will also initiated a lactic acid at this point Internal Medicine - H&P: HPI Chief complaint: Auditory hallucinations Admitted From: Emergency Dept Plans for Post Hospital Care: Transfer Psych Facility History of present illness: Mr. Miller is a 37 year old male with a long and significant past medical history of psychiatric problems including schizophrenia and psychosis who presented to the emergency room with auditory hallucinations. The patient does not provide me any history whatsoever hence most of the history in this particular case is derived from the review of electronic medical records. He presented to the emergency room with auditory hallucinations of persecution and he continues to have these hallucinations as per the sitter in the room. During my examination on the floor, the patient was standing next to his food tray and refused to sit initially. However he eventually did sit down and let me examine him. He has been found to be pacing around in his room for most of the time since last night. He has not had any sleep as per the sitter. It is very difficult to obtain any sort of history from this patient even on multiple questioning. He prefers to mumble incoherently or stared into the distance. He did state that he has ran out of his medications and he has not been taking them when I specifically questioned him. In the ER on arrival he was noted to be tachycardic and had a white count of 14, 000 without a left shift. He also had evidence of urinary tract infections on his initial UA and he was given a bolus of IV fluids and started on IV Rocephin. He nods no to any fevers, chills, shortness of breath-but again, given his psychiatric issues he is not dependable as far as history is concerned Psychiatry was promptly consulted in the emergency room and will begin to evaluate the patient today. The patient is considered to be at risk for harm and not able to take care of himself and hence most likely he will be institutionalized. Wait input from psychiatry Pharmacy has not been able to verify his home medications because the patient is not able to provide any history at this time Past Med Surg Social Fam HX - Past Medical History Medical history: hyperlipidemia, hypertension, seizures Psychiatric history: schizophrenia, previous psychiatric hospitalization - Past Surgical History Surgical History: appendectomy, arthroscopy - Social History Smoking Status: Current some day smoker Smokeless Tobacco Status: No Alcohol use: heavy, recent Drug use: cocaine, marijuana, methamphetamine - Family History Father Adopted: No Family Member Ethnicity: Non- Living Status: Still Living Hx Family Cardiac Disorders: Yes Hx Family Respiratory Disorders: No Hx Family Cancer: No Hx Family GI Disorders: No Hx Family Endocrine Disorder: Yes Hx Family Neuromuscular Disorders: No Hx Family Neurologic Disorders: No Hx Family HEENT Disorders: No Hx Family Autoimmune Disorders: No Internal Medicine - H&P: Meds Unable To Obtain [Unable to Obtain] 10/19/17 [History] 3 Allergy/AdvReac Type Severity Reaction Status Date / Time No Known Allergies Allergy Verified 06/01/17 14:51 ROS unobtainable: due to mental status (Patient is not able to give me any pertinent review of systems) All Systems PM: A 10-system review of systems was not obtainable - Constitutional Vitals: Temp Pulse Resp BP Pulse Ox 99.0 F 116 18 134/87 97 10/20/17 04:00 10/20/17 04:00 10/20/17 04:00 10/20/17 04:00 10/20/17 04:00 General appearance: Present: A&O X 0, disheveled Exam: Anxious, pacing in the room, garbled speech, eating breakfast - Head Head exam: Present: atraumatic, normocephalic - Eye Eye exam: Present: PERRL, conjuntiva pink, sclera anicteric Pupils: Present: PERRL - Neck Neck exam general surgery: Present: supple, trachea midline. Absent: lymphadenopathy - Respiratory Respiratory exam: Present: CTAB. Absent: accessory muscle use, rales, rhonchi, wheezes - Cardiovascular Cardiovascular exam: Present: RRR, +S1, +S2. Absent: diastolic murmur, gallop, rubs, systolic murmur - GI/Abdominal GI/Abdominal exam: Present: normal bowel sounds, soft, no peritoneal signs. Absent: distended, tenderness - Extremities Exam Extremities exam: Present: warm, radial pulses palpable and symmetrical. Absent : calf tenderness, cyanotic, pedal edema Additional comments: IV in place and the right antecubital fossa - Neurological Exam Neurological exam: Present: alert, normal gait, no focal deficits, strengths equal and symetr throughout - Psychiatric Psychiatric exam: Present: anxious Additional comments: Unable to follow commands intermittently, pacing in the room when not standing still, disjointed thoughts and incoherent speech for most part-he did state a few statements which did make sense to me. Does not maintain eye contact at all Internal Med - H&P Results - Labs CBC & Chem 7: 10/19/17 20:50 10/19/17 20:50
--- NOTE | 2017-10-20 12:33 | Electrocardiograph Report ---
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
[2017-10-20] MEDS: Acetaminophen 325 MG TABLET PO PRN ×2 (12:53→18:53)
[2017-10-20] MEDS: cefTRIAXone 1,000 MG in Water for inj. (sterile) 20 ML 10 ML IVP SCH (21:54)
[2017-10-21 06:17] LABS: Alanine Aminotransferase 22 Units/L (7-52); Albumin 3.9 g/dL (3.5-5.7); Albumin/Globulin Ratio 1.4 (1.1-2.2); Alkaline Phosphatase 69 Units/L (34-104); Aspartate Amino Transferase 21 Units/L (13-39); BUN/Creatinine Ratio 12 (6-26); Bilirubin,Total 0.8 mg/dL (0.3-1.0); Blood Urea Nitrogen 10 mg/dL (6-20); Calcium 9.1 mg/dL (8.6-10.3); Carbon Dioxide 23 mEq/L (23-29); Chloride 108 mEq/L (98-107); Globulin 2.7 g/dL (2.4-3.5); Glucose 99 mg/dL (70-105); Osmolality,Calculated 285 (280-300); Potassium 3.9 mEq/L (3.5-5.1); Sodium 138 mEq/L (136-145); Total Protein 6.6 g/dL (6.4-8.9); eGFR For African Americans > 60 (> 60); eGFR For Non-African Americans > 60 (> 60)
[2017-10-21 07:14] LABS: Hematocrit 42.8 % (37.5-50.1); Hemoglobin 14.5 g/dL (12.9-16.9); Mean Corpuscular HGB Conc 33.9 g/dL (31.6-35.5); Mean Corpuscular Hemoglobin 30.3 pg (28.0-33.3); Mean Corpuscular Volume 89.4 fL (83.0-100.0); Mean Platelet Volume 11.2 fL (9.4-12.4); Platelet Count 293 K/mcL (140-400); Red Blood Count 4.79 M/mcL (4.19-5.50)
[2017-10-21] MEDS: cefTRIAXone 1,000 MG in Water for inj. (sterile) 20 ML 10 ML IVP SCH (09:04)
[2017-10-21] MEDS: Acetaminophen 325 MG TABLET PO PRN ×2 (09:09→17:37)
--- NOTE | 2017-10-21 15:27 | Consult Note ---
Date of Encounter: 10/21/17 Time of Encounter: 15:25 Assessment & Recommendation (1) Schizophrenia Current visit: No Status: Chronic Assessment & Recommendation: Last prescribed Depakote, Seroquel, and Latuda. Chronically noncompliant. However, would recommend restarting meds given level of psychosis. Would not restart all of them at once. If liver function is ok can start Depakote 250mg BID and Seroquel 200mg qhs. This combo might take the edge off AH and help him relax. Can transfer to inpatient psych once medically stable. Qualifiers: Schizophrenia type: undifferentiated schizophrenia Qualified Code(s): F20.3 - Undifferentiated schizophrenia History of Present Illness Requesting Physician: Samuel Stroud Reason for consult: psychosis History of present illness: Mr. Miller is a 37 year old male with a long standing history of Schizophrenia, chronic noncompliance, and recreational drug abuse. Currently psychotic. Typically has some psychosis at baseline but has been off meds. 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 Pacing around room. Some church preoccupation. Endorses AH. Currently on medical floor for treatment of UTI. Cooperating with antibiotics. CC: Samuel Stroud Past Med Surg Social Fam HX - Past Medical History Medical history: hyperlipidemia, hypertension, seizures - Past Psychiatric History Psychiatric history: Reports: schizophrenia, previous psychiatric hospitalization Family psychiatric history: Unknown Family History of Suicide: Unknown - Past Surgical History Surgical History: appendectomy, arthroscopy - Social History Smoking Status: Current some day smoker Smokeless Tobacco Status: No Alcohol use: heavy, recent Drug use: cocaine, marijuana, methamphetamine - Family History Father Adopted: No Family Member Ethnicity: Non- Living Status: Still Living Hx Family Cardiac Disorders: Yes Hx Family Respiratory Disorders: No Hx Family Cancer: No Hx Family GI Disorders: No Hx Family Endocrine Disorder: Yes Hx Family Neuromuscular Disorders: No Hx Family Neurologic Disorders: No Hx Family HEENT Disorders: No Hx Family Autoimmune Disorders: No Medications & Allergies Divalproex Sodium [Depakote] 250 mg PO BID 10/20/17 [History] Lisinopril [Zestril] 5 mg PO DAILY 10/20/17 [History] Lurasidone HCl [Latuda] 120 mg PO DAILY 10/20/17 [History] Naltrexone HCl [Revia] 50 mg PO DAILY 10/20/17 [History] Propranolol [Inderal] 20 mg PO BID 10/20/17 [History] Quetiapine Fumarate [Seroquel] 400 mg PO DAILY 10/20/17 [History] traZODone [TraZODone] 50 mg PO HS 10/20/17 [History] 3 Allergy/AdvReac Type Severity Reaction Status Date / Time No Known Allergies Allergy Verified 06/01/17 14:51 Review of Systems Constitutional: Denies: fever, chills, weakness, weight change Eyes: Denies: eye pain, vision change Ears, Nose, Throat: Denies: ear pain, throat pain, dental pain, hearing loss, congestion Cardiovascular: Denies: chest pain, palpitations, dyspnea on exertion Respiratory: Denies: cough, dyspnea, wheezes Gastrointestinal: Denies: abdominal pain, nausea, vomiting, diarrhea, constipation Genitourinary male: Denies: urgency, dysuria, frequency, genital lesions Genitourinary female: Denies: urgency, dysuria, frequency, abnormal menses, dyspareunia Musculoskeletal: Denies: joint swelling, joint pain Integumentary: Denies: rash, lesions, pruritus Neurological: Denies: headache, weakness, numbness, memory loss Endocrine: Denies: fatigue, heat or cold intolerance Hematologic/Lymphatic: Denies: easy bruising, lymphadenopathy Allergic/Immunologic: Denies: urticaria, itchy eyes Mental Status Exam Patient orientation: Yes Person, Yes Time, Yes Place Level of alertness: Alert Patient appearance: Disheveled Behavior: restless Psychomotor activity: Increased Eye contact: Maintains Eye Contact Mood description: Elevated Affect description: blunted Speech pattern: Limited Speech volume: Normal Thought process: Disorganized Thought content: No Suicidal ideation, No Homicidal ideation Perceptual disturbances: Yes Auditory hallucinations Attention span: Capable of Focused Attention Memory description: Grossly Intact Patient reliability: Questionable Historian Intelligence estimate: Below Average Judgment: Limited Insight: Minimal Results - Vital Signs Vital signs: Temp Pulse Resp BP Pulse Ox 98.6 F 81 17 148/81 100 10/21/17 13:51 10/21/17 13:51 10/21/17 13:51 10/21/17 13:51 10/21/17 13:51 - Labs Labs: Laboratory Last Values WBC 9.5 K/mcL (4.3-11.1) 10/21/17 06:45 RBC 4.79 M/mcL (4.19-5.50) 10/21/17 06:45 Hgb 14.5 g/dL (12.9-16.9) D 10/21/17 06:45 Hct 42.8 % (37.5-50.1) 10/21/17 06:45 MCV 89.4 fL (83.0-100.0) 10/21/17 06:45 MCH 30.3 pg (28.0-33.3) 10/21/17 06:45 MCHC 33.9 g/dL (31.6-35.5) 10/21/17 06:45 RDW 13.0 % (11.5-14.5) 10/21/17 06:45 Plt Count 293 K/mcL (140-400) 10/21/17 06:45 MPV 11.2 fL (9.4-12.4) 10/21/17 06:45 Immature Gran % 0.3 % (0-4) 10/19/17 20:50 Seg Neutrophils % 69.0 % 10/19/17 20:50 Lymphocytes % 18.7 % 10/19/17 20:50 Monocytes % 11.2 % 10/19/17 20:50 Eosinophils % 0.4 % 10/19/17 20:50 Basophils % 0.4 % 10/19/17 20:50 Neutrophils # 9.7 K/mcL (1.6-8.9) H 10/19/17 20:50 Lymphocytes # 2.6 K/mcL (0.6-4.6) 10/19/17 20:50 Monocytes # 1.6 K/mcL (0.0-1.3) H 10/19/17 20:50 Eosinophils # 0.1 K/mcL (0.0-0.6) 10/19/17 20:50 Basophils # 0.1 K/mcL (0.0-0.2) 10/19/17 20:50 Sodium 138 mEq/L (136-145) 10/21/17 04:02 Potassium 3.9 mEq/L (3.5-5.1) 10/21/17 04:02 Chloride 108 mEq/L (98-107) H 10/21/17 04:02 Carbon Dioxide 23 mEq/L (23-29) 10/21/17 04:02 BUN 10 mg/dL (6-20) 10/21/17 04:02 Creatinine 0.84 mg/dL (0.70-1.30) 10/21/17 04:02 Est GFR ( Amer) > 60 (> 60) 10/21/17 04:02 Est GFR (Non-Af Amer) > 60 (> 60) 10/21/17 04:02 BUN/Creatinine Ratio 12 (6-26) 10/21/17 04:02 Glucose 99 mg/dL (70-105) 10/21/17 04:02 Calculated Osmolality 285 (280-300) 10/21/17 04:02 Lactic Acid 1.5 mmol/L (0.5-2.2) 10/20/17 14:04 Calcium 9.1 mg/dL (8.6-10.3) 10/21/17 04:02 Total Bilirubin 0.8 mg/dL (0.3-1.0) 10/21/17 04:02 AST 21 Units/L (13-39) 10/21/17 04:02 ALT 22 Units/L (7-52) 10/21/17 04:02 Alkaline Phosphatase 69 Units/L (34-104) 10/21/17 04:02 Serum Total Protein 6.6 g/dL (6.4-8.9) 10/21/17 04:02 Albumin 3.9 g/dL (3.5-5.7) 10/21/17 04:02 Globulin 2.7 g/dL (2.4-3.5) 10/21/17 04:02 Albumin/Globulin Ratio 1.4 (1.1-2.2) 10/21/17 04:02 Urine Color [place] (Yellow) A 10/19/17 20:44 Urine Clarity Cloudy (Clear) A 10/19/17 20:44 Urine pH 6.0 pH Units (5.0-8.0) 10/19/17 20:44 Ur Specific [place] 1.029 (1.010-1.025) H 10/19/17 20:44 Urine Protein 30 mg/dL (Neg-Trace) H 10/19/17 20:44 Urine Glucose (UA) Normal mg/dL (Normal) 10/19/17 20:44 Urine Ketones Trace mg/dL (Negative) H 10/19/17 20:44 Urine Blood Negative (Negative) 10/19/17 20:44 Urine Nitrite Positive (Negative) A 10/19/17 20:44 Urine Bilirubin Small (Negative) H 10/19/17 20:44 Urine Urobilinogen Normal mg/dL (Normal) 10/19/17 20:44 Ur Leukocyte Esterase Small (Negative) H 10/19/17 20:44 Urine Microscopic RBC 0-3 per hpf (0-3) 10/19/17 20:44 Urine Microscopic WBC 5-15 per hpf (0-3) H 10/19/17 20:44 Ur Squamous Epith Cells Many per lpf (None-Few) H 10/19/17 20:44 Urine Bacteria Many per hpf (None-Few) H 10/19/17 20:44 Hyaline Casts None Seen per lpf (None-Few) 10/19/17 20:44 Salicylates < 5.0 mg/dL (15.0-30.0) L 10/19/17 20:50 Urine Opiates Screen Negative ng/mL (Wntsgg=700) 10/19/17 20:44 Acetaminophen < 1.0 mcg/mL (10-30) L 10/19/17 20:50 Ur Barbiturates Screen Negative ng/mL (Hwcsqp=561) 10/19/17 20:44 Valproic Acid < 2 mcg/mL (50-100) L 10/19/17 20:50 Ur Phencyclidine Scrn Negative ng/mL (Cutoff=25) 10/19/17 20:44 Ur Amphetamines Screen Negative ng/mL (Cfharb=9350) 10/19/17 20:44 U Benzodiazepines Scrn Negative ng/mL (Kzoqgt=651) 10/19/17 20:44 Urine Cocaine Screen Negative ng/mL (Cutoff= 300) 10/19/17 20:44 U Marijuana (THC) Screen Positive ng/mL (Cutoff = 50) H 10/19/17 20:44 Ethyl Alcohol < 10 mg/dL (0-10) 10/19/17 20:50 Specimen Rejected Clotted 10/21/17 06:03 Consult Discharge Plan - Plan Referrals: NONE,PCP [Primary Care Provider] -
--- NOTE | 2017-10-21 17:22 | Internal Med Progress Note ---
Date of Encounter: 10/21/17 Time of Encounter: 13:47 - Assessment and plan (1) Acute psychosis Current Visit: Yes Status: Acute Assessment and plan: Patient has a history of long-standing psychiatric issues and has been on multiple medications-none of which can be verified given the patient's mental condition right now. He has been placed in a room with a sitter to oversee that he does not hurt himself. He did not verbalize this to me but there is a clear documentation from caregivers from last night that the patient refuses to sleep because he is afraid that the angels of will come for him if he does that at this point he does not possess any capacity to take medical decisions. He will be evaluated closely by psychiatry and most likely institutionalized I will defer treatment for his acute psychosis to psychiatry he is not belligerent or attempting to hurt self or somebody else at this point continue to monitor very closely he is able to eat well and has almost completely finished his breakfast He lacks medical capacity to take any medical decisions and hence cannot leave against medical advice Psychiatry to evaluate patient today. (2) UTI (urinary tract infection) Current Visit: Yes Status: Acute Qualifiers: Urinary tract infection type: site unspecified Hematuria presence: without hematuria Qualified Code(s): N39.0 - Urinary tract infection, site not specified (3) Chronic schizophrenia Current Visit: No Status: Suspected Assessment and plan: Will treat with Rocephin and discharge with PO (4) Hallucinations Current Visit: Yes Status: Acute (5) Hypertension Current Visit: Yes Status: Chronic Assessment and plan: Continue hydralazine prn Qualifiers: Hypertension type: unspecified Qualified Code(s): I10 - Essential (primary ) hypertension (6) SIRS (systemic inflammatory response syndrome) Current Visit: Yes Status: Acute (7) DVT prophylaxis Current Visit: No Status: Acute Assessment and plan: Patient ambulates without issue and is low risk for VTE - Subjective Interval history: No acute events, patient anxious pacing around room. - Constitutional Vitals: Temp Pulse Resp BP Pulse Ox 99.0 F 84 16 139/77 99 10/21/17 17:14 10/21/17 17:14 10/21/17 17:14 10/21/17 17:14 10/21/17 17:14 General appearance: Present: A&O X 0, disheveled Exam: CVS: RRR Lungs: CTAB Ext: no edema Skin: warm, dry Psych: anxious Internal Medicine: Result - Labs CBC & Chem 7: 10/21/17 06:45 10/21/17 04:02 Labs: Short CBC 10/21/17 Range/Units 06:45 WBC 9.5 (4.3-11.1) K/mcL Hgb 14.5 D (12.9-16.9) g/dL Hct 42.8 (37.5-50.1) % Plt Count 293 (140-400) K/mcL BMP 10/21/17 04:02 Sodium 138 Potassium 3.9 Chloride 108 H Carbon Dioxide 23 BUN 10 Creatinine 0.84 Glucose 99 Calcium 9.1 Liver Function 10/21/17 Range/Units 04:02 Total Bilirubin 0.8 (0.3-1.0) mg/dL AST 21 (13-39) Units/L ALT 22 (7-52) Units/L Alkaline Phosphatase 69 (34-104) Units/L Albumin 3.9 (3.5-5.7) g/dL Consult Discharge Plan - Plan Referrals: NONE,PCP [Primary Care Provider] -
[2017-10-21] MEDS ORDERED: Nitroglycerin 0.4 MG TAB.SUBL SL PRN (17:46)
[2017-10-21] MEDS ORDERED: Aspirin 325 MG TABLET PO ONE (17:46)
[2017-10-21] MEDS: *HR* Enoxaparin 120 MG/0.8 ML SYRINGE SQ SCH (21:33)
[2017-10-22 00:40] LABS: Basophils % 0.3 %; Eosinophils # 0.2 K/mcL (0.0-0.6); Eosinophils % 2.2 %; Hemoglobin 13.1 g/dL (12.9-16.9); Immature Granulocytes % 0.1 % (0-4); Lymphocytes # 3.2 K/mcL (0.6-4.6); Lymphocytes % 41.3 %; Mean Corpuscular HGB Conc 34.5 g/dL (31.6-35.5); Mean Corpuscular Hemoglobin 30.8 pg (28.0-33.3); Mean Corpuscular Volume 89.4 fL (83.0-100.0); Monocytes # 0.7 K/mcL (0.0-1.3); Monocytes % 9.5 %; Neutrophils # 3.6 K/mcL (1.6-8.9); Platelet Count 275 K/mcL (140-400); Red Blood Count 4.25 M/mcL (4.19-5.50); Red Cell Distribution Width 13.1 % (11.5-14.5); Segmented Neutrophils % 46.6 %
[2017-10-22 01:04] LABS: BUN/Creatinine Ratio 12 (6-26); Blood Urea Nitrogen 11 mg/dL (6-20); Calcium 9.3 mg/dL (8.6-10.3); Carbon Dioxide 25 mEq/L (23-29); Chloride 105 mEq/L (98-107); Glucose 102 mg/dL (70-105); Osmolality,Calculated 282 (280-300); Potassium 3.5 mEq/L (3.5-5.1); Sodium 136 mEq/L (136-145); eGFR For African Americans > 60 (> 60); eGFR For Non-African Americans > 60 (> 60)
[2017-10-22] MEDS: *HR* Enoxaparin 120 MG/0.8 ML SYRINGE SQ SCH (06:24)
[2017-10-22 08:52] VITALS: BP 136/84
--- NOTE | 2017-10-22 11:44 | Discharge Summary ---
Date of Encounter: 10/22/17 Time of Encounter: 11:41 - Discharge Diagnosis (1) Acute psychosis Priority: Primary Status: Acute (2) Pulmonary embolism Priority: Secondary Status: Acute Qualifiers: Pulmonary embolism type: other Chronicity: unspecified Acute cor pulmonale presence: without acute cor pulmonale Qualified Code(s): I26.99 - Other pulmonary embolism without acute cor pulmonale (3) UTI (urinary tract infection) Priority: Secondary Status: Acute Qualifiers: Urinary tract infection type: site unspecified Hematuria presence: without hematuria Qualified Code(s): N39.0 - Urinary tract infection, site not specified (4) Chronic schizophrenia Priority: Secondary Status: Suspected (5) Hallucinations Priority: Secondary Status: Acute (6) Hypertension Priority: Secondary Status: Chronic Qualifiers: Hypertension type: unspecified Qualified Code(s): I10 - Essential (primary ) hypertension (7) SIRS (systemic inflammatory response syndrome) Priority: Secondary Status: Acute (8) DVT prophylaxis Priority: Secondary Status: Acute - Discharge Medications Prescriptions: Rivaroxaban [Xarelto] 1 dose PO AD 30 Days pack Home Medications: Divalproex Sodium [Depakote] 250 mg PO BID 10/20/17 [History] Lisinopril [Zestril] 5 mg PO DAILY 10/20/17 [History] Propranolol [Inderal] 20 mg PO BID 10/20/17 [History] Cephalexin [Keflex] 500 mg PO Q12H #20 capsule 10/22/17 [Rx] Quetiapine Fumarate [Seroquel] 200 mg PO HS #0 10/22/17 [Rx] Rivaroxaban [Xarelto] 1 dose PO AD 30 Days pack 10/22/17 [Rx] Allergies/Adverse Reactions: 3 Allergy/AdvReac Type Severity Reaction Status Date / Time No Known Allergies Allergy Verified 06/01/17 14:51 Date of admission: 10/22/17 10:15 Primary care physician: PCP NONE Consults: 10/22/17 11:17 Consult to Pastoral Services [CONS] Routine Comment: Discharging clinician: Estrella Marie - Patient Status Disposition: Transfer Psychiatric Hosp Condition: Fair Functional capacity at discharge: independent ambulation Overall status at discharge: patient is progressing back to baseline - Discharge Instructions Follow Up With: NONE,PCP [Primary Care Provider] - - Diet and Activity Activity: increase activity as tolerated Diet: advance to your usual diet Hospital course: Mr. Miller is a 37 year old male with a long and significant past medical history of psychiatric problems including schizophrenia and psychosis who presented to the emergency room with auditory hallucinations. The patient does not provide me any history whatsoever hence most of the history in this particular case is derived from the review of electronic medical records. He presented to the emergency room with auditory hallucinations of persecution and he continues to have these hallucinations as per the sitter in the room. During my examination on the floor, the patient was standing next to his food tray and refused to sit initially. However he eventually did sit down and let me examine him. He has been found to be pacing around in his room for most of the time since last night. He has not had any sleep as per the sitter. It is very difficult to obtain any sort of history from this patient even on multiple questioning. He prefers to mumble incoherently or stared into the distance. He did state that he has ran out of his medications and he has not been taking them when I specifically questioned him. In the ER on arrival he was noted to be tachycardic and had a white count of 14,000 without a left shift. He also had evidence of urinary tract infections on his initial UA and he was given a bolus of IV fluids and started on IV Rocephin. Psychiatry was consulted. It was recommended that patient discharge to Psychiatry unit when stable. Recommended restarting home medications slowly, so Depakote and Seroquel were restarted. Prior to discharge patient stated he had squeezing chest pain. A cardiac workup showed negative troponin x2, normal EKG. A D-dimer was elevated and so CTA was done showing a pulmonary embolism with low clot burden. He was hemodynamically stable and was oxygenating well. Patient Urine culture showed lsoan-sensitive Citrobacter koseri. He was discharged to Psychiatry unit with Xarelto starting pack, and Keflex for 10 days. Follow-up: -He should follow up with a Urologist for UTI -He should continue Xarelto after starter pack is complete, 3-6 months, as fit by his primary doctor taking care of him. -Patient may benefit from anticholesterol medication. Would note that statins would be preferred but would need used with caution since he is already taking Depakote which can both affect LFTs. - Time Spent with Patient Total time spent providing and/or coordinating discharge services: - Constitutional Vitals: Temp Pulse Resp BP Pulse Ox 98.1 F 74 18 136/84 99 10/22/17 08:51 10/22/17 08:51 10/22/17 08:51 10/22/17 08:51 10/22/17 08:51 General appearance: Present: A&O X 0, disheveled - Head Head exam: Present: atraumatic, normocephalic - Eye Eye exam: Present: PERRL, conjuntiva pink, sclera anicteric Pupils: Present: PERRL - Neck Neck exam general surgery: Present: supple, trachea midline. Absent: lymphadenopathy - Respiratory Respiratory exam: Present: CTAB. Absent: accessory muscle use, rales, rhonchi, wheezes - Cardiovascular Cardiovascular exam: Present: RRR, +S1, +S2. Absent: diastolic murmur, gallop, rubs, systolic murmur - GI/Abdominal GI/Abdominal exam: Present: normal bowel sounds, soft, no peritoneal signs. Absent: distended, tenderness - Extremities Exam Extremities exam: Present: warm, radial pulses palpable and symmetrical. Absent : calf tenderness, cyanotic, pedal edema - Neurological Exam Neurological exam: Present: CN II-XII intact, oriented X3, no focal deficits. Absent: pronater drift, facial droop, speech deficit - Skin Skin exam: Present: dry, intact
[2017-10-22] MEDS: Acetaminophen 325 MG TABLET PO PRN (14:32)
--- NOTE | 2017-10-23 09:57 | Electrocardiograph Report ---
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
== END 2017-10-22 14:30 | DRG 750 ==
LOC: 3NENU 20:29 → EMEROO 20:29 → 3NENU 10-20 01:50
PROVIDERS: ADMIT Internal Medicine; ATTEND Hospitalist

== ENCOUNTER 2017-10-22 14:51 | Inpatient (IN) ==
[2017-10-22] MEDS ORDERED: *HR* LORazepam 2 MG/ML VIAL IM PRN (15:30)
[2017-10-22] MEDS ORDERED: *HR* LORazepam 1 MG TABLET PO PRN (15:30)
[2017-10-22] MEDS ORDERED: MOM Conc 10 ML UD.LIQ PO PRN (15:30)
[2017-10-22] MEDS ORDERED: Mag Hydrox/Al Hydrox/Simeth 30 ML UDC PO PRN (15:30)
[2017-10-22] MEDS ORDERED: Haloperidol Lactate 5 MG/ML VIAL IM PRN (15:30)
[2017-10-22] MEDS: hydrOXYzine pamoate 25 MG CAPSULE PO PRN (17:29)
[2017-10-22] MEDS: cephALEXin 500 MG CAPSULE PO SCH (17:29)
[2017-10-22] MEDS: Acetaminophen 325 MG TABLET PO PRN (17:32)
[2017-10-22] MEDS: *HR* Rivaroxaban 15 MG TABLET PO SCH (20:49)
[2017-10-22] MEDS: Divalproex (12 HR) 250 MG TABLET PO SCH (20:49)
[2017-10-23] MEDS: cephALEXin 500 MG CAPSULE PO SCH ×2 (06:19→17:03)
[2017-10-23] MEDS: *HR* Rivaroxaban 15 MG TABLET PO SCH ×2 (09:22→20:21)
[2017-10-23] MEDS: Divalproex (12 HR) 250 MG TABLET PO SCH ×2 (09:22→20:21)
--- NOTE | 2017-10-23 10:01 | Psychiatry History & Physical ---
Date of Encounter: 10/23/17 Time of Encounter: 09:52 History of Present Illness Patient Stated Chief Complaint: psychosis Medicare Admission Attestation: For traditional Medicare patients the provided hospital inpatient services are reasonable and necessary and in the case of services not specified as inpatient -only under 42 CFR 419.22 (n), that they are appropriately provided as inpatient services in accordance 42 CFR 412.3. For Critical Access Hospital the patient may reasonably be expected to be discharged or transferred to a hospital within 96 hours after admission to the Critical Access Hospital. Admitted From: Home Plans for Post Hospital Care: Transfer Long Term Facility History of Present Illness: Mr. Miller is a 37 year old male with a long standing history of Schizophrenia and chronic noncompliance with treatment in the community. Presented to the ER in a psychotic state but was felt to be medically unstable so he was admitted to a medical floor and transferred to yesterday. Medical work-up was positive for an UTI and a PE. Now on Keflex and Xarelto. Given new onset medical issues in addition to multiple psychiatric admissions following decompensations in the past year will be looking at placement in an ECF. Client needs time to recover and stabilize. Mental health meds are being added back. Will not add all of them at once as it is unclear how long he has been off of them and how they might interact with antibiotic and anticoagulant. Client is currently experiencing distressing AH. States he cannot sit or lie down as he is afraid if he does God, Abisai, and the Holy Ghost will strap him down. Thought angels were coming for him overnight. Not aggressive but agitated at times. He was able to sleep overnight. Past Med Surg Social Fam HX - Past Medical History Medical history: hyperlipidemia, hypertension, pulmonary embolus, seizures - Past Psychiatric History Psychiatric history: Reports: schizophrenia, previous psychiatric hospitalization Family psychiatric history: Unknown Family History of Suicide: Unknown - Past Surgical History Surgical History: appendectomy, arthroscopy - Social History Smoking Status: Current every day smoker Smokeless Tobacco Status: No Alcohol use: heavy, recent Drug use: cocaine, marijuana, methamphetamine - Family History Father Adopted: No Family Member Ethnicity: Non- Living Status: Still Living Hx Family Cardiac Disorders: Yes Hx Family Respiratory Disorders: No Hx Family Cancer: No Hx Family GI Disorders: No Hx Family Endocrine Disorder: Yes Hx Family Neuromuscular Disorders: No Hx Family Neurologic Disorders: No Hx Family HEENT Disorders: No Hx Family Autoimmune Disorders: No Medications & Allergies Divalproex Sodium [Depakote] 250 mg PO BID 10/20/17 [History] Lisinopril [Zestril] 5 mg PO DAILY 10/20/17 [History] Propranolol [Inderal] 20 mg PO BID 10/20/17 [History] Cephalexin [Keflex] 500 mg PO Q12H #20 capsule 10/22/17 [Rx] Quetiapine Fumarate [Seroquel] 200 mg PO HS #0 10/22/17 [Rx] Rivaroxaban [Xarelto] 1 dose PO AD 30 Days pack 10/22/17 [Rx] 3 Allergy/AdvReac Type Severity Reaction Status Date / Time No Known Allergies Allergy Verified 06/01/17 14:51 Review of Systems Constitutional: Reports: other Eyes: Denies: eye pain, vision change Ears, Nose, Throat: Denies: ear pain, throat pain, dental pain, hearing loss, congestion Cardiovascular: Denies: chest pain, palpitations, dyspnea on exertion Respiratory: Denies: cough, dyspnea, wheezes Gastrointestinal: Denies: abdominal pain, nausea, vomiting, diarrhea, constipation Genitourinary male: Denies: urgency, dysuria, frequency, genital lesions Genitourinary female: Denies: urgency, dysuria, frequency, abnormal menses, dyspareunia Musculoskeletal: Reports: other Integumentary: Denies: rash, lesions, pruritus Neurological: Denies: headache, weakness, numbness, memory loss Endocrine: Denies: fatigue, heat or cold intolerance Hematologic/Lymphatic: Denies: easy bruising, lymphadenopathy Allergic/Immunologic: Denies: urticaria, itchy eyes Mental Status Exam Patient orientation: Yes Person, Yes Time, Yes Place Level of alertness: Alert Patient appearance: Disheveled Behavior: restless Psychomotor activity: Increased Eye contact: Minimal Contact Mood description: Anxious Affect description: congruent with mood Speech pattern: Other Speech volume: Normal Thought process: Disorganized Thought content: No Suicidal ideation, No Homicidal ideation, Yes Overt delusions, Yes Paranoid delusion, Yes Anglican delusion Perceptual disturbances: Yes Reacting to internal stimuli, Yes Auditory hallucinations, No Visual hallucinations Attention span: Capable of Focused Attention Memory description: Grossly Intact Patient reliability: Questionable Historian Intelligence estimate: Average Judgment: Poor Insight: Minimal Exam - HEENT Head exam IM: Present: atraumatic Eye exam IM: Present: EOMI ENT exam IM: Present: mucous membranes moist - Neurological Neurological exam IM: Present: alert, oriented X3 - Respiratory Respiratory exam IM: Present: CTAB - GI/Abdominal GI/Abdominal exam IM: Present: normal bowel sounds - Extremities Extremities exam IM: Present: full ROM - Skin Skin exam IM: Present: normal color Results - Vital Signs Vital signs: Temp Pulse Resp BP 98.5 F 71 16 123/76 10/23/17 09:00 10/23/17 09:00 10/23/17 09:00 10/23/17 09:00 Assessment and Plan (1) Schizophrenia Current visit: No Status: Chronic Plan: Admit inpatient for safety and stabilization, Close observation, Suicide Precautions per unit protocol, Encourage participation in unit milieu, Group Therapy, Monitor sleep, Monitor appetite Risks, benefits, side effects, alternatives discussed w/pt: Yes Patient agreeable to treatment: Yes Plans for Post Hospital Care: Transfer Long Term Facility Estimated Length of Stay (Days): 10 Qualifiers: Schizophrenia type: undifferentiated schizophrenia Qualified Code(s): F20.3 - Undifferentiated schizophrenia
[2017-10-23] MEDS: Acetaminophen 325 MG TABLET PO PRN (13:04)
[2017-10-24] MEDS: Divalproex (12 HR) 250 MG TABLET PO SCH ×2 (08:16→20:38)
[2017-10-24] MEDS: *HR* Rivaroxaban 15 MG TABLET PO SCH ×2 (08:16→20:38)
[2017-10-24] MEDS: cephALEXin 500 MG CAPSULE PO SCH ×2 (08:16→20:38)
--- NOTE | 2017-10-24 10:04 | Psychiatry Progress Note ---
Date of Encounter: 10/24/17 Time of Encounter: 10:01 Subjective Interval history: Still very psychotic. Client reports no improvement in his AH. Has to be encouraged to eat because the voices are telling him not to. Once he starts eating he inhales his food. Cooperative with the Depakote and Seroquel. Latuda has not yet been added back. Giving client time to adjust to reintroduction of mental health meds. Also taking an antibiotic and an anticoagulant which are new meds to him. Attempting to place him in an ECF. Someone came to the unit to evaluate him yesterday and stated a report would be available on line Wednesday. Review of Systems Constitutional: Denies: fever, chills, weakness, weight change Eyes: Denies: eye pain, vision change Ears, Nose, Throat: Denies: ear pain, throat pain, dental pain, hearing loss, congestion Cardiovascular: Denies: chest pain, palpitations, dyspnea on exertion Respiratory: Denies: cough, dyspnea, wheezes Gastrointestinal: Denies: abdominal pain, nausea, vomiting, diarrhea, constipation Musculoskeletal: Denies: joint swelling, joint pain Neurological: Denies: headache, weakness, numbness, memory loss Objective: Exam Patient orientation: Yes Person, Yes Time, Yes Place Level of alertness: Sedated Patient appearance: Unkempt, Disheveled Behavior: calm, cooperative Psychomotor activity: Normal Eye contact: Minimal Contact Mood description: Euthymic/stable Affect description: incongruent with mood Speech pattern: Mumbled Speech volume: Normal Thought process: Loose Associations Thought content: No Suicidal ideation, No Homicidal ideation Perceptual disturbances: Yes Auditory hallucinations Judgment: Limited Insight: Minimal Results - Vital Signs Vital Signs: Temp Pulse Resp BP 97.5 F L 83 16 118/75 10/24/17 09:00 10/24/17 09:00 10/24/17 09:00 10/24/17 09:00 Assessment and Plan (1) Schizophrenia Current visit: No Status: Chronic Plan: Continue hospitalization, Close observation, Suicide Precautions per unit protocol, Encourage participation in unit milieu, Group Therapy, Monitor sleep, Monitor appetite Risks, benefits, side effects, alternatives discussed w/pt: Yes Patient agreeable to treatment: Yes Qualifiers: Schizophrenia type: undifferentiated schizophrenia Qualified Code(s): F20.3 - Undifferentiated schizophrenia
[2017-10-24] MEDS: hydrOXYzine pamoate 25 MG CAPSULE PO PRN (15:03)
[2017-10-24] MEDS: Acetaminophen 325 MG TABLET PO PRN (15:07)
[2017-10-25] MEDS: *HR* Rivaroxaban 15 MG TABLET PO SCH ×2 (08:10→20:22)
[2017-10-25] MEDS: cephALEXin 500 MG CAPSULE PO SCH ×2 (08:10→20:22)
[2017-10-25] MEDS: Divalproex (12 HR) 250 MG TABLET PO SCH ×2 (08:10→20:22)
--- NOTE | 2017-10-25 10:39 | Psychiatry Progress Note ---
Date of Encounter: 10/25/17 Time of Encounter: 08:00 Subjective Interval history: Vincent is seen today for follow-up and notes reviewed. The patient is still adjusting to medical medications. He denies side effects at present. He denies auditory hallucinations but at times he does appear to be responding to internal stimuli. He remained withdrawn to his room. He interacts medical minimally with peers and staff. Still awaiting possible ECF placement as he was declined at an initial facility. Objective: Exam Patient orientation: Yes Person Level of alertness: Alert Patient appearance: Unkempt, Disheveled Behavior: guarded Psychomotor activity: Slowed Eye contact: Fleeting Contact Mood description: Euthymic/stable Affect description: flat Speech pattern: Slowed, Slurred Speech volume: Normal Thought process: [place] Thought content: No Suicidal ideation, No Homicidal ideation Perceptual disturbances: Yes Reacting to internal stimuli, Yes Auditory hallucinations, No Visual hallucinations Judgment: Limited Insight: None Results - Vital Signs Vital Signs: Temp Pulse Resp BP 97.6 F 77 16 113/79 10/25/17 09:00 10/25/17 09:00 10/25/17 09:00 10/25/17 09:00 Assessment and Plan (1) Schizophrenia Current visit: No Status: Chronic Plan: Continue hospitalization, Close observation, Suicide Precautions per unit protocol, Encourage participation in unit milieu, Group Therapy, Monitor sleep, Monitor appetite Additional Plan: Continue to monitor on current medications. Consider adding Latuda. Await transfer to the ECF facility if possible. 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
[2017-10-26] MEDS: cephALEXin 500 MG CAPSULE PO SCH ×2 (09:11→21:12)
[2017-10-26] MEDS: Divalproex (12 HR) 250 MG TABLET PO SCH ×2 (09:12→21:11)
[2017-10-26] MEDS: *HR* Rivaroxaban 15 MG TABLET PO SCH ×2 (09:12→21:11)
--- NOTE | 2017-10-26 10:36 | Psychiatry Progress Note ---
Date of Encounter: 10/26/17 Time of Encounter: 09:35 Subjective Interval history: Xander is seen today for follow-up. He remains in his room most of the time. Somewhat cooperative with staff and willing to take meds. Reports he still hears voices sometimes but does not elaborate they are saying. He does verbalize a willingness to restart Latuda at this time. He denies chest pain or shortness of breath. Still attempting to find placement at [facility] as patient is unable to care for his medical needs on his own. Review of Systems Constitutional: Denies: fever, chills, weakness, weight change Eyes: Denies: eye pain, vision change Ears, Nose, Throat: Denies: ear pain, throat pain, dental pain, hearing loss, congestion Cardiovascular: Denies: chest pain, dyspnea on exertion Respiratory: Denies: cough, dyspnea, wheezes Gastrointestinal: Denies: abdominal pain, nausea, vomiting, diarrhea, constipation Musculoskeletal: Denies: joint swelling, joint pain Neurological: Denies: headache, weakness, numbness, memory loss Psychiatric: Reports: anxiety, auditory hallucinations. Denies: suicidal ideation Objective: Exam Patient orientation: Yes Person, Yes Place Level of alertness: Alert Patient appearance: Disheveled, Malodorous Behavior: calm Psychomotor activity: Slowed Eye contact: Maintains Eye Contact Mood description: Euthymic/stable Affect description: blunted Speech pattern: Rambling, Mumbled Speech volume: Normal Thought process: [place] Thought content: No Suicidal ideation, No Homicidal ideation Perceptual disturbances: No Reacting to internal stimuli, Yes Auditory hallucinations Judgment: Limited Insight: Minimal Results - Vital Signs Vital Signs: Temp Pulse Resp BP 98.6 F 85 16 116/80 10/26/17 09:00 10/26/17 09:00 10/26/17 09:00 10/26/17 09:00 Assessment and Plan (1) Schizophrenia Current visit: No Status: Chronic Plan: Continue hospitalization, Close observation, Suicide Precautions per unit protocol, Encourage participation in unit milieu, Group Therapy, Monitor sleep, Monitor appetite Additional Plan: Restart Latuda for improvement in patient's auditory hallucinations. Encourage positive coping strategies. Encourage participation in groups. 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
[2017-10-26] MEDS: Lurasidone 20 MG TABLET PO SCH (10:57)
[2017-10-27] MEDS: cephALEXin 500 MG CAPSULE PO SCH ×2 (07:46→20:57)
[2017-10-27] MEDS: Divalproex (12 HR) 250 MG TABLET PO SCH ×2 (08:46→20:57)
[2017-10-27] MEDS: Lurasidone 20 MG TABLET PO SCH (08:46)
[2017-10-27] MEDS: *HR* Rivaroxaban 15 MG TABLET PO SCH ×2 (08:47→20:57)
--- NOTE | 2017-10-27 11:14 | Psychiatry Progress Note ---
Date of Encounter: 10/27/17 Time of Encounter: 09:00 Subjective Interval history: Vincent is seen today for follow-up. He reports that he is not hearing voices right now. He has had no issues restarting the Latuda. He remains withdrawn to his room most of the time and is malodorous and disheveled. Encourage to shower today. He denies chest pain or shortness of breath today. Review of Systems Psychiatric: Reports: anxiety. Denies: suicidal ideation, auditory hallucinations Objective: Exam Patient orientation: Yes Person, Yes Place Level of alertness: Alert Patient appearance: Unkempt, Disheveled, Malodorous Behavior: calm Psychomotor activity: Slowed Eye contact: Fleeting Contact Mood description: Euthymic/stable Affect description: flat Speech pattern: Rambling, Mumbled Speech volume: Normal Thought process: [place], Slowed Thinking Thought content: No Suicidal ideation, No Homicidal ideation Perceptual disturbances: No Reacting to internal stimuli, No Auditory hallucinations Judgment: Limited Insight: Minimal Results - Vital Signs Vital Signs: Temp Pulse Resp BP 97.2 F L 76 16 112/76 10/27/17 09:00 10/27/17 09:00 10/27/17 09:00 10/27/17 09:00 Assessment and Plan (1) Schizophrenia Current visit: No Status: Chronic Plan: Continue hospitalization, Close observation, Suicide Precautions per unit protocol, Encourage participation in unit milieu, Group Therapy, Monitor sleep, Monitor appetite Additional Plan: Continue current medications. Encourage appropriate ADLs and attended some group activities. 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
[2017-10-27] MEDS: Acetaminophen 325 MG TABLET PO PRN (18:36)
[2017-10-27] MEDS: hydrOXYzine pamoate 25 MG CAPSULE PO PRN (18:42)
[2017-10-28] MEDS: Lurasidone 20 MG TABLET PO SCH (09:14)
[2017-10-28] MEDS: Divalproex (12 HR) 250 MG TABLET PO SCH ×2 (09:15→20:06)
[2017-10-28] MEDS: cephALEXin 500 MG CAPSULE PO SCH ×2 (09:15→20:06)
[2017-10-28] MEDS: *HR* Rivaroxaban 15 MG TABLET PO SCH ×2 (09:15→20:05)
[2017-10-28] MEDS: Acetaminophen 325 MG TABLET PO PRN ×2 (11:27→20:03)
--- NOTE | 2017-10-28 12:26 | Psychiatry Progress Note ---
Date of Encounter: 10/28/17 Time of Encounter: 08:15 Subjective Interval history: Xander is seen today for follow-up. He reports that he is not having auditory hallucinations right now. He has been seen responding to internal stimuli by staff. Patient is disheveled and not showering at this point. He is agreeable to taking a shower today. He is cooperative with staff but mainly remains in his room lying down. He is not responding to internal stimuli during this interview. Patient denies delusions today as well. Review of Systems Psychiatric: Reports: anxiety, auditory hallucinations. Denies: suicidal ideation Objective: Exam Patient orientation: Yes Person, Yes Place Level of alertness: Alert Patient appearance: Unkempt, Disheveled, Malodorous Behavior: calm, cooperative Psychomotor activity: Slowed Eye contact: Minimal Contact Mood description: Euthymic/stable Affect description: blunted Speech pattern: Mumbled Speech volume: Normal Thought process: [place] Thought content: No Suicidal ideation, No Homicidal ideation Perceptual disturbances: Yes Reacting to internal stimuli, No Auditory hallucinations, No Visual hallucinations Judgment: Limited Insight: Minimal Results - Vital Signs Vital Signs: Temp Pulse Resp BP 97.7 F 77 16 96/52 10/28/17 09:47 10/28/17 09:47 10/28/17 09:47 10/28/17 09:47 Assessment and Plan (1) Schizophrenia Current visit: No Status: Chronic Risks, benefits, side effects, alternatives discussed w/pt: Yes Patient agreeable to treatment: Yes Qualifiers: Schizophrenia type: undifferentiated schizophrenia Qualified Code(s): 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
[2017-10-29] MEDS: *HR* Rivaroxaban 15 MG TABLET PO SCH ×2 (08:47→22:02)
[2017-10-29] MEDS: Lurasidone 20 MG TABLET PO SCH (08:48)
[2017-10-29] MEDS: Divalproex (12 HR) 250 MG TABLET PO SCH ×2 (08:48→22:03)
[2017-10-29] MEDS: cephALEXin 500 MG CAPSULE PO SCH ×2 (08:49→22:03)
[2017-10-29] MEDS: Acetaminophen 325 MG TABLET PO PRN ×2 (11:33→22:03)
[2017-10-29] MEDS: hydrOXYzine pamoate 25 MG CAPSULE PO PRN ×2 (15:45→22:03)
--- NOTE | 2017-10-30 00:40 | Psychiatry Progress Note ---
Date of Encounter: 10/29/17 Time of Encounter: 22:00 Subjective Interval history: This patient is known to me from previous hospitalization. The current hospitalization is essentially the same features which are hearing voices judaism delusions this is further complicated by pulmonary embolus and the need to be on an anticoagulant. The patient is noncompliant with medicines also does drugs. He is able to identify the voices of Satan and God talking to him. He has poor self-care Review of Systems Psychiatric: Reports: anxiety, auditory hallucinations. Denies: suicidal ideation Objective: Exam Patient orientation: Yes Person, Yes Time, Yes Place, Yes Circumstance Level of alertness: Sedated Patient appearance: Unkempt, Malodorous, Mal-nourished Behavior: cooperative Psychomotor activity: Slowed Eye contact: Avoids Eye Contact Mood description: Euthymic/stable Affect description: flat Speech pattern: Slowed, Delayed Speech volume: Soft/Quiet Thought process: Logical Thought content: Yes Paranoid delusion, Yes [place]ze delusion Perceptual disturbances: Yes Auditory hallucinations Judgment: Poor Insight: Minimal Results - Vital Signs Vital Signs: Temp Pulse Resp BP 98.6 F 88 16 110/76 10/29/17 21:00 10/29/17 21:00 10/29/17 21:00 10/29/17 21:00 Assessment and Plan (1) Hypertension Current visit: No Status: Chronic Plan: Continue hospitalization, Encourage participation in unit milieu, Monitor appetite Risks, benefits, side effects, alternatives discussed w/pt: Yes Patient agreeable to treatment: Yes Qualifiers: Hypertension type: unspecified Qualified Code(s): I10 - Essential (primary ) hypertension (2) Schizophrenia Current visit: No Status: Chronic Plan: Continue hospitalization, Suicide Precautions per unit protocol, Monitor appetite Additional Plan: Referral to ECF Risks, benefits, side effects, alternatives discussed w/pt: Yes Patient agreeable to treatment: Yes Qualifiers: Schizophrenia type: disorganized schizophrenia Qualified Code(s): F20.1 - Disorganized schizophrenia Consult Discharge Plan - Plan Referrals: NONE,PCP [Primary Care Provider] -
[2017-10-30] MEDS: cephALEXin 500 MG CAPSULE PO SCH ×2 (10:01→21:06)
[2017-10-30] MEDS: Lurasidone 20 MG TABLET PO SCH (10:02)
[2017-10-30] MEDS: Divalproex (12 HR) 250 MG TABLET PO SCH ×2 (10:02→21:05)
[2017-10-30] MEDS: *HR* Rivaroxaban 15 MG TABLET PO SCH ×2 (10:02→21:06)
--- NOTE | 2017-10-30 15:07 | Psychiatry Progress Note ---
Date of Encounter: 10/30/17 Time of Encounter: 14:15 Subjective Interval history: This patient was seen for follow-up. He was lying in bed. He was disheveled. He is gotten up with assistance. He is overall abulic with negative symptoms. He is able to identify hallucinations and shinto delusions and he has some insight and period the patient is agreeable to going to an ECF. The patient has a history of questionable neuroleptic malignant syndrome. This makes it difficult to give an injectable long-acting injectable antipsychotic but not impossible. The patient has never been on Clozaril or clozapine. There are no known drug interactions between the the anticoagulant and antipsychotics. Nonetheless patient's limited response to medicines is need for oral medicines presence of the pulmonary embolus and the need for anticoagulation necessitate treatment within an ECF. The patient's chronic illness and multiple hospitalizations his history of noncompliance furthers this need Review of Systems Psychiatric: Reports: anxiety, auditory hallucinations. Denies: suicidal ideation Objective: Exam Patient orientation: Yes Person, Yes Time, Yes Place Level of alertness: Sedated Patient appearance: Unkempt, Disheveled, Malodorous, Obese Behavior: withdrawn Psychomotor activity: Slowed Eye contact: Minimal Contact Mood description: Euthymic/stable Affect description: flat Speech pattern: Slowed, Delayed, Impoverished Speech volume: Normal Thought process: Thought Blocking Thought content: Yes Ideas of reference, Yes Jain delusion Perceptual disturbances: Yes Auditory hallucinations Judgment: Limited Results - Vital Signs Vital Signs: Temp Pulse Resp BP 98.1 F 105 16 93/60 10/30/17 09:48 10/30/17 09:48 10/30/17 09:48 10/30/17 09:48 Assessment and Plan (1) Hypertension Current visit: No Status: Chronic Plan: Continue hospitalization Risks, benefits, side effects, alternatives discussed w/pt: Yes Patient agreeable to treatment: Yes Qualifiers: Hypertension type: essential hypertension Qualified Code(s): I10 - Essential (primary) hypertension (2) Schizophrenia Current visit: No Status: Chronic Plan: Continue hospitalization, Encourage participation in unit milieu Risks, benefits, side effects, alternatives discussed w/pt: Yes Patient agreeable to treatment: Yes Qualifiers: Schizophrenia type: disorganized schizophrenia Qualified Code(s): F20.1 - Disorganized schizophrenia (3) DVT prophylaxis Current visit: No Status: Acute Plan: Continue hospitalization, Monitor appetite Risks, benefits, side effects , alternatives discussed w/pt: Yes Patient agreeable to treatment: Yes Consult Discharge Plan - Plan Referrals: NONE,PCP [Primary Care Provider] -
[2017-10-30] MEDS: Nicotine 2 MG GUM BC PRN (16:58)
[2017-10-30] MEDS: hydrOXYzine pamoate 25 MG CAPSULE PO PRN ×2 (16:58→21:06)
[2017-10-30] MEDS: Acetaminophen 325 MG TABLET PO PRN ×2 (16:59→21:05)
[2017-10-31] MEDS: Lurasidone 20 MG TABLET PO SCH (08:58)
[2017-10-31] MEDS: cephALEXin 500 MG CAPSULE PO SCH ×2 (08:58→20:34)
[2017-10-31] MEDS: *HR* Rivaroxaban 15 MG TABLET PO SCH ×2 (08:58→20:34)
[2017-10-31] MEDS: Divalproex (12 HR) 250 MG TABLET PO SCH ×2 (08:59→20:34)
--- NOTE | 2017-10-31 15:47 | Psychiatry Progress Note ---
Date of Encounter: 10/31/17 Time of Encounter: 15:45 Subjective Interval history: The patient is continuing to adjust to the unit this interval. Today he took a shower. Today he is up walking around. He will be reminded that he should be fully closed or have his door is closed in the ECF. He has family and friends in the local area and enjoys football and basketball he continues to have other symptoms but is in a positive manner Review of Systems Psychiatric: Reports: anxiety, auditory hallucinations. Denies: suicidal ideation Objective: Exam Patient orientation: Yes Person, Yes Time, Yes Place Level of alertness: Alert Patient appearance: Well-nourished Behavior: cooperative Psychomotor activity: Increased Eye contact: Maintains Eye Contact Mood description: Euthymic/stable Affect description: constricted Speech pattern: Mumbled Speech volume: Normal Thought process: [place] Thought content: Yes Paranoid delusion, Yes Rastafari delusion Perceptual disturbances: Yes Auditory hallucinations Judgment: Limited Insight: Minimal Results - Vital Signs Vital Signs: Temp Pulse Resp BP 97.6 F 99 16 109/76 10/31/17 08:58 10/31/17 08:58 10/31/17 08:58 10/31/17 08:58 Assessment and Plan (1) Hypertension Current visit: No Status: Chronic Risks, benefits, side effects, alternatives discussed w/pt: Yes Patient agreeable to treatment: Yes Qualifiers: Hypertension type: essential hypertension Qualified Code(s): I10 - Essential (primary) hypertension (2) Schizophrenia Current visit: No Status: Chronic Plan: Continue hospitalization, Encourage participation in unit milieu, Group Therapy, Monitor sleep Risks, benefits, side effects, alternatives discussed w /pt: Yes Patient agreeable to treatment: Yes Qualifiers: Schizophrenia type: disorganized schizophrenia Qualified Code(s): F20.1 - Disorganized schizophrenia (3) DVT prophylaxis Current visit: No Status: Acute Plan: Continue hospitalization, Encourage participation in unit milieu, Other Additional Plan: discahrge to ECF Risks, benefits, side effects, alternatives discussed w/pt: Yes Patient agreeable to treatment: Yes Consult Discharge Plan - Plan Referrals: NONE,PCP [Primary Care Provider] -
[2017-10-31] MEDS: Acetaminophen 325 MG TABLET PO PRN (17:57)
[2017-10-31] MEDS: Nicotine 2 MG GUM BC PRN (17:58)
[2017-10-31] MEDS: hydrOXYzine pamoate 25 MG CAPSULE PO PRN ×2 (17:58→20:35)
[2017-11-01] MEDS: Lurasidone 20 MG TABLET PO SCH (08:31)
[2017-11-01] MEDS: Divalproex (12 HR) 250 MG TABLET PO SCH ×2 (08:31→21:19)
[2017-11-01] MEDS: cephALEXin 500 MG CAPSULE PO SCH ×2 (08:31→21:19)
[2017-11-01] MEDS: *HR* Rivaroxaban 15 MG TABLET PO SCH ×2 (08:31→21:19)
--- NOTE | 2017-11-01 13:58 | Psychiatry Progress Note ---
Date of Encounter: 11/01/17 Time of Encounter: 13:45 Subjective Interval history: When I talked to the patient today and asked him how he was doing he told me "good". When asked him why he was in a psychiatric hospital he told me "I am here because I was hearing voices". When asked him if he was still hearing voices now, he told me no. He told me he was sleeping okay and eating okay. He denied any side effects of his medications. He asked me if they had found a place for him to live yet, knowing that he needed to go to a specialized care facility which was the reason he was here at this time. I told him they were still working on that. I asked him if he was fine waiting here while they worked on his placement. He denied any issues or need for any extra help. He shook his head no and said, "I am fine". He denied any suicidal/homicidal ideation. He denied any mood instability. Review of Systems Psychiatric: Reports: anxiety, auditory hallucinations. Denies: suicidal ideation Objective: Exam Patient orientation: Yes Person, Yes Place Level of alertness: Sedated, Follows commands Patient appearance: Disheveled Behavior: calm Psychomotor activity: Slowed Eye contact: Fleeting Contact Mood description: Depressed Affect description: congruent with mood, constricted Speech pattern: Slowed Speech volume: Normal Thought content: Yes Intact Judgment: Fair Insight: Partial Results - Vital Signs Vital Signs: Temp Pulse Resp BP 97.5 F L 98 18 107/74 11/01/17 08:54 11/01/17 08:54 11/01/17 08:54 11/01/17 08:54 Assessment and Plan (1) Schizophrenia Current visit: No Status: Chronic Plan: Continue hospitalization, Close observation, Encourage participation in unit milieu, Group Therapy, Monitor sleep Risks, benefits, side effects, alternatives discussed w/pt: Yes Patient agreeable to treatment: Yes Qualifiers: Schizophrenia type: disorganized schizophrenia Qualified Code(s): F20.1 - Disorganized schizophrenia Consult Discharge Plan - Plan Referrals: NONE,PCP [Primary Care Provider] -
[2017-11-01] MEDS: Nicotine 2 MG GUM BC PRN (17:11)
[2017-11-01] MEDS: Acetaminophen 325 MG TABLET PO PRN (17:11)
[2017-11-01] MEDS: hydrOXYzine pamoate 25 MG CAPSULE PO PRN ×2 (17:11→21:19)
[2017-11-02] MEDS: cephALEXin 500 MG CAPSULE PO SCH ×2 (08:51→20:23)
[2017-11-02] MEDS: Divalproex (12 HR) 250 MG TABLET PO SCH ×2 (08:51→20:23)
[2017-11-02] MEDS: *HR* Rivaroxaban 15 MG TABLET PO SCH ×2 (08:51→20:23)
[2017-11-02] MEDS: Lurasidone 20 MG TABLET PO SCH (08:51)
[2017-11-02] MEDS: Acetaminophen 325 MG TABLET PO PRN ×3 (11:30→20:43)
--- NOTE | 2017-11-02 19:27 | Psychiatry Progress Note ---
Date of Encounter: 11/02/17 Time of Encounter: 17:20 Subjective Interval history: Patient tells me "I am bummed out". He denies any suicidal/homicidal ideation. He denies any auditory or visual hallucinations or paranoia. He denies any adverse side effects of his medications. When I asked him why he is "bummed out ", he tells me because the clinical social work aide was unable to find placement and extended care facility for him. He realizes that he has to remain here because of his medical issues in combination with his mental health issues. He states he is hopeful they will find something for him soon. He verbalizes that he knows he needs help with his maintenance and daily medical care and monitoring. He denies any issues with sleep. He denies any issues with appetite. He denies any adverse side effects of his medications. Addendum (11/03/2017 @ 0745am) Approximately an 30 min after meeting with the patient, he approached nursing and said that he was having chest pain 'like I had before' when he had the pulmonary embolism. He also stated he had a severe headache. A stat consult was called with the hospitalist who came to see the patient. It was determined that he needed to be placed on a medical floor bed for an EKG and the rule out a possible second pulmonary embolism. Patient was discharged and moved off the unit to the medical unit for further medical observation. We will continue to work with medical on this case. Review of Systems Psychiatric: Reports: anxiety, auditory hallucinations. Denies: suicidal ideation Objective: Exam Patient orientation: Yes Person, Yes Place, Yes Circumstance Level of alertness: Sedated Patient appearance: Unkempt Behavior: cooperative Psychomotor activity: Slowed Eye contact: Minimal Contact Mood description: Depressed Affect description: blunted Speech pattern: Slowed Speech volume: Normal Thought process: Linear, Goal Oriented Thought content: Yes Intact Judgment: Fair Insight: Partial Results - Vital Signs Vital Signs: Temp Pulse Resp BP 97.7 F 107 20 106/78 11/02/17 09:00 11/02/17 09:00 11/02/17 09:00 11/02/17 09:00 Assessment and Plan (1) Schizophrenia Status: Chronic Plan: Continue hospitalization, Encourage participation in unit milieu, Group Therapy, Monitor sleep Risks, benefits, side effects, alternatives discussed w /pt: Yes Patient agreeable to treatment: Yes (Awaiting housing and ECF acceptance) Qualifiers: Schizophrenia type: disorganized schizophrenia Qualified Code(s): F20.1 - Disorganized schizophrenia Consult Discharge Plan - Plan Instructions: Urinary Tract Infection in Men (DC), Depression (DC), Schizophrenia (DC), Chronic Hypertension (DC) Referrals: NONE,PCP [Primary Care Provider] -
[2017-11-02 19:46] VITALS: BP 115/80
[2017-11-13] MEDS ORDERED: *HR* Rivaroxaban 10 MG TABLET PO SCH (17:00)
--- NOTE | 2017-11-23 14:43 | Discharge Summary ---
Date of Encounter: 11/02/17 Time of Encounter: 20:53 Diagnosis - Discharge Diagnosis (1) Schizophrenia Status: Chronic Medications - Discharge Medications Divalproex Sodium [Depakote] 250 mg PO BID 10/20/17 [History] Divalproex (12 HR) [Depakote (12 HR)] 250 mg PO BID 30 Days #60 tablet. [Rx] Lisinopril [Zestril] 5 mg PO DAILY 30 Days #30 tablet 11/18/17 [Rx] Lurasidone [Latuda] 120 mg PO DAILY 30 Days #30 tablet 11/18/17 [Rx] Lurasidone [Latuda] 120 mg PO DAILY 30 Days #30 tablet 11/18/17 [Rx] Naltrexone HCl 50 mg PO DAILY 30 Days #30 tablet 11/18/17 [Rx] Propranolol [Inderal] 20 mg PO BID 60 Days #30 tablet 11/18/17 [Rx] Quetiapine Fumarate [Seroquel] 400 mg PO HS 30 Days #30 tablet 11/18/17 [Rx] Rivaroxaban [Xarelto] 15 mg PO BID 30 Days #60 tablet 11/18/17 [Rx] Rivaroxaban [Xarelto] 15 mg PO BID 60 Days #30 tablet 11/18/17 [Rx] hydrOXYzine pamoate [HydrOXYzine Pamoate] 25 mg PO TID PRN 30 Days #30 capsule 11/18/17 [Rx] hydrOXYzine pamoate [HydrOXYzine Pamoate] 25 mg PO TID PRN 30 Days #90 capsule 11/18/17 [Rx] traZODone [TraZODone] 50 mg PO HS PRN 30 Days #30 tablet 11/18/17 [Rx] 3 Allergy/AdvReac Type Severity Reaction Status Date / Time No Known Allergies Allergy Verified 06/01/17 14:51 Provider Date of admission: 10/22/17 14:51 Primary care physician: PCP NONE Consults: 11/02/17 19:37 Consult to Hospitalist [CONS] Stat Consulting Provider: Hospitalist Valente Reason for Consult: Patient complaining of pain in the L upper lung. Patient positive for PE this visit. Time Notified: 19:39 Call Completed: Yes Assessment and Plan - Follow up Plan Follow up with: NONE,PCP [Primary Care Provider] - Disposition: Still a Patient Hospital Course Hospital course: Addendum/Discharge for medical reasons on 11/02/2017 @ 2153' (late entry secondary to Med record needing a separate document for D/C) Mr. Miller is a 37 year old male who at approximately an 30 min after meeting with the patient, he approached nursing and said that he was having chest pain ' like I had before' when he had the pulmonary embolism. He also stated he had a severe headache. A stat consult was called with the hospitalist who came to see the patient. It was determined that he needed to be placed on a medical floor bed for an EKG and the rule out a possible second pulmonary embolism. Patient was discharged and moved off the unit to the medical unit for further medical observation. We will continue to work with medical on this case. - Time Spent with Patient Total time spent providing and/or coordinating discharge services: 0 min Less than 30 minutes Quality - Multiple Antipsychotics Patient discharged on 2 or more antipsychotic medications: Yes - Justification Documentation of: History 3 failed trials of monotherapy
== END 2017-11-02 21:53 | disposition still patient (30) | DRG 750 ==
LOC: SUATTDRO 14:51 → 1ANU 14:51
PROVIDERS: ADMIT Psychiatry & Neurology Psychiatry; ATTEND Psychiatry & Neurology Psychiatry

== ENCOUNTER 2017-11-02 20:20 | Observation (INO) ==
[2017-11-02] MEDS ORDERED: Acetaminophen 325 MG TABLET PO PRN (20:43)
[2017-11-02] MEDS ORDERED: Naloxone 0.4 MG/ML INJ IVP PRN (20:43)
[2017-11-02] MEDS ORDERED: traMADol 50 MG TABLET PO PRN (20:43)
--- NOTE | 2017-11-02 20:59 | Internal Med History&Physical ---
Date of Encounter: 11/02/17 Time of Encounter: 19:50 Assessment and Plan (1) Chest pain Current visit: Yes Status: Acute 1. Will admit to 2A and place on telemetry. 2. EKG I requested on 1A was normal. 3. Will cycle troponins, EKG's, and order STAT CTA chest to rule out propagation of PE and/or pulmonary infarct. 4. Patient received Xarleto this evening around 8 pm already. I discussed with pharmacy and we will start heparin gtt at 8 am tomorrow morning (12 hours after last Xarelto dose). 5. Will treat chest pain with Tylenol and/or oral opiates as needed for pain relief. Qualifiers: Chest pain type: chest pain on breathing Qualified Code(s): R07.1 - Chest pain on breathing; R07.81 - Pleurodynia (2) Pulmonary embolism on right Current visit: Yes Status: Acute 1. Patient has been on Xarelto. 2. Will hold Xarelto tomorrow and start heparin gtt tomorrow morning as noted above. 3. CTA chest tonight as noted above. 4. Patient may need ECHO tomorrow pending results of CTA. (3) Hallucinations Current visit: Yes Status: Chronic 1. Continue psychiatry meds once verified with nursing staff. 2. Once patient cleared medically, he will return to for ongoing care as discussed with staff tonight. (4) DVT prophylaxis Current visit: Yes Status: Acute 1. On Xarelto currently and to be on heparin gtt tomorrow morning. Internal Medicine - H&P: HPI Chief complaint: chest pain Admitted From: Intrahospital Transfer Plans for Post Hospital Care: Transfer Psych Facility History of present illness: Mr. Miller is a 37 year old male who is currently being hospitalized on the inpatient psychiatry unit. He complained of sudden onset sharp, stabbing chest pain exacerbated by deep inspiration. He has a known pulmonary embolus diagnosed several days ago. I was called by the psychiatry staff requesting a STAT consult. Upon my assessment of the patient, he states the pain is in his right upper chest and is stabbing and pleuritic in nature. He states taking deep breaths makes it hurt more. He denies any productive cough, hemoptysis, fevers, nausea , diaphoresis, or chest congestion. He is taking shallow breaths and denies any dyspnea. However, with deep inspiration or exertion, he has worsening chest pain and dyspnea. He has been taking Xarelto as prescribed. He denies any pain or tenderness in his calves or legs. Because of his chest pain and known pulmonary embolus, I am admitting him directly to 2A telemetry floor for ongoing monitoring and care. Past Med Surg Social Fam HX - Past Medical History Attestation: Yes The following information was validated with the patient. Source: patient, old records reviewed Medical history: hyperlipidemia, hypertension, pulmonary embolus, seizures Psychiatric history: schizophrenia, previous psychiatric hospitalization - Past Surgical History Surgical History: appendectomy, arthroscopy - Social History Smoking Status: Current every day smoker Smokeless Tobacco Status: No Alcohol use: heavy, recent Drug use: cocaine (reports last use about 2 months ago), marijuana, methamphetamine - Family History Father Adopted: No Family Member Ethnicity: Non- Living Status: Still Living Hx Family Cardiac Disorders: Yes Hx Family Respiratory Disorders: No Hx Family Cancer: No Hx Family GI Disorders: No Hx Family Endocrine Disorder: Yes Hx Family Neuromuscular Disorders: No Hx Family Neurologic Disorders: No Hx Family HEENT Disorders: No Hx Family Autoimmune Disorders: No - Additional Family History Additional family history: No known FH of DVT/PE Internal Medicine - H&P: Meds Divalproex Sodium [Depakote] 250 mg PO BID 10/20/17 [History] Lisinopril [Zestril] 5 mg PO DAILY 10/20/17 [History] Propranolol [Inderal] 20 mg PO BID 10/20/17 [History] Cephalexin [Keflex] 500 mg PO Q12H #20 capsule 10/22/17 [Rx] Quetiapine Fumarate [Seroquel] 200 mg PO HS #0 10/22/17 [Rx] Rivaroxaban [Xarelto] 1 dose PO AD 30 Days pack 10/22/17 [Rx] 3 Allergy/AdvReac Type Severity Reaction Status Date / Time No Known Allergies Allergy Verified 06/01/17 14:51 - Constitutional Constitutional: no chills, no fever(s) - EENT Eyes: no blurry vision, no change in vision Ears: no ear pain, no tinnitus Nose, mouth and throat: no sinus pressure, no sore throat - Cardiovascular Cardiovascular ROS IM: chest pain, dyspnea, dyspnea on exertion, no syncope - Respiratory Respiratory: dyspnea, dyspnea on exertion, pain on inspiration, no cough, no hemoptysis, no wheezing, no chest congestion, no excessive phlegm production, no change in phlegm color - Gastrointestinal Gastrointestinal: no abdominal pain, no diarrhea, no hematochezia, no melena, no nausea, no vomiting - Genitourinary Genitourinary ROS male: no dysuria, no flank pain, no hematuria - Musculoskeletal Musculoskeletal ROS IM: no atrophy, no back pain - Integumentary Integumentary IM: no rash - Neurological Neurological ROS: no dizziness, no focal weakness, no frequent falls - Psychiatric Psychiatric: hallucinations, no suicidal ideation - Endocrine Endocrine IM: no polydipsia, no polyuria - Hematologic/Lymphatic Hematologic/Lymphatic: easy bruising - Allergic/Immunologic Allergic/Immunologic: no wheezing, no GI upset with certain foods - Constitutional General appearance: Present: cooperative, disheveled, A&O X 3, pleasant, answers questions appropriately - Head Head exam: Present: atraumatic, normal inspection - Eye Eye exam: Present: EOMI, normal appearance, PERRL. Absent: scleral icterus Pupils: Present: normal accommodation - ENT ENT exam: Present: mucous membranes dry, normal exam Additional comments: poor dentition - Neck Neck exam general surgery: Present: full ROM, supple. Absent: lymphadenopathy, tenderness - Respiratory Respiratory exam: Present: CTAB. Absent: accessory muscle use, chest wall tenderness, rales, respiratory distress, rhonchi, wheezes - Cardiovascular Cardiovascular exam: Present: RRR, +S1, +S2. Absent: diastolic murmur, systolic murmur - GI/Abdominal GI/Abdominal exam: Present: normal bowel sounds, soft. Absent: hepatomegaly, splenomegaly, tenderness - Extremities Exam Extremities exam: Present: full ROM, normal capillary refill, warm, radial pulses palpable and symmetrical. Absent: calf tenderness, tenderness - Back Exam Back exam: Absent: CVA tenderness (L), CVA tenderness (R) - Neurological Exam Neurological exam: Present: alert, CN II-XII intact, oriented X3, no focal deficits - Psychiatric Psychiatric exam: Present: flat affect. Absent: homicidal ideation, suicidal ideation - Skin Skin exam: Present: dry, intact, warm Internal Med - H&P Results - EKG Data Prior EKG available for review: no Interpretation IM: normal EKG EKG comments: 11/02/17 21:06 NSR; no acute findings - VTE Reasons for not Prescribing Prophylaxis: Treatment not Indicated - Low risk for VTE
[2017-11-02 22:12] LABS: Basophils # 0.1 K/mcL (0.0-0.2); Basophils % 0.6 %; Eosinophils # 0.2 K/mcL (0.0-0.6); Eosinophils % 2.4 %; Hematocrit 42.3 % (37.5-50.1); Hemoglobin 14.3 g/dL (12.9-16.9); Immature Granulocytes % 0.2 % (0-4); Lymphocytes # 3.3 K/mcL (0.6-4.6); Lymphocytes % 41.2 %; Mean Corpuscular HGB Conc 33.8 g/dL (31.6-35.5); Mean Corpuscular Hemoglobin 30.4 pg (28.0-33.3); Mean Platelet Volume 10.5 fL (9.4-12.4); Monocytes # 0.7 K/mcL (0.0-1.3); Monocytes % 8.9 %; Neutrophils # 3.8 K/mcL (1.6-8.9); Platelet Count 318 K/mcL (140-400); Red Cell Distribution Width 12.5 % (11.5-14.5); Segmented Neutrophils % 46.7 %
[2017-11-02 22:17] LABS: INR 1.1; Prothrombin Time 11.4 Seconds (9.4-12.1)
[2017-11-02 22:20] LABS: Activated Partial Thrombo Time 35.1 Seconds (26.0-36.0)
[2017-11-02 23:10] LABS: Alanine Aminotransferase 45 Units/L (7-52); Albumin 4.1 g/dL (3.5-5.7); Albumin/Globulin Ratio 1.5 (1.1-2.2); Alkaline Phosphatase 81 Units/L (34-104); Aspartate Amino Transferase 25 Units/L (13-39); BUN/Creatinine Ratio 19 (6-26); Bilirubin,Total 0.4 mg/dL (0.3-1.0); Blood Urea Nitrogen 19 mg/dL (6-20); Calcium 9.2 mg/dL (8.6-10.3); Carbon Dioxide 23 mEq/L (23-29); Chloride 101 mEq/L (98-107); Globulin 2.7 g/dL (2.4-3.5); Glucose 143 mg/dL (70-105); Magnesium 1.9 mg/dL (1.6-2.6); Osmolality,Calculated 281 (280-300); Potassium 4.1 mEq/L (3.5-5.1); Sodium 133 mEq/L (136-145); Total Protein 6.8 g/dL (6.4-8.9); eGFR For African Americans > 60 (> 60); eGFR For Non-African Americans > 60 (> 60)
[2017-11-03] MEDS ORDERED: hydrOXYzine pamoate 25 MG CAPSULE PO PRN (00:25)
[2017-11-03] MEDS ORDERED: cephALEXin 500 MG CAPSULE PO SCH (00:30)
[2017-11-03] MEDS: 0.9 % Sodium Chloride 1,000 ML IVC SCH ×2 (01:27→11:40)
[2017-11-03] MEDS ORDERED: *HR* Heparin 5,000 UNIT/ML VIAL IVP ONE (08:00)
[2017-11-03] MEDS ORDERED: *HR* Heparin 5,000 UNIT/ML VIAL IVP PRN ×2 (08:00)
[2017-11-03] MEDS ORDERED: Acetaminophen 325 MG TABLET PO PRN (08:56)
[2017-11-03] MEDS: Divalproex (12 HR) 250 MG TABLET PO SCH ×2 (11:42→20:50)
[2017-11-03] MEDS: Heparin 25,000 UNIT/500 ML D5W 25,000 UNIT/500 ML BAG IVC SCH (12:44)
--- NOTE | 2017-11-03 14:51 | Internal Med Progress Note ---
Date of Encounter: 11/03/17 Time of Encounter: 14:25 - Assessment and plan (1) Chest pain Current Visit: No Status: Resolved Assessment and plan: Resolved at this time likely secondary to underlying PE continue heparin gtt at this time will transition to PO Xarelto in am psych eval requested for tentative d/c to psych inpatient in am Qualifiers: Chest pain type: unspecified Qualified Code(s): R07.9 - Chest pain, unspecified (2) Pulmonary embolism Current Visit: No Status: Acute Assessment and plan: as listed above Qualifiers: Pulmonary embolism type: other Chronicity: unspecified Acute cor pulmonale presence: without acute cor pulmonale Qualified Code(s): I26.99 - Other pulmonary embolism without acute cor pulmonale (3) DVT prophylaxis Current Visit: No Status: Acute Assessment and plan: on heparin gtt (4) Hallucinations Current Visit: No Status: Chronic Assessment and plan: continue psych medications psych evaluation requested - Subjective Interval history: Pt seen and examined at bedside. He is a 37y/o male who is transferred from inpatient psych for evaluation of chest pain. Currently chest pain free and started on heparin gtt. Repeat CTA chest reported improvement in the clot burden from PE compared to previous study. Will continue heparin gtt for 24 hours and start Xarelto in am. Psych evaluation requested for possible transfer back to inpatient psych in am. - Constitutional Vitals: Temp Pulse Resp BP Pulse Ox 98.5 F 87 20 122/83 97 11/03/17 12:41 11/03/17 12:41 11/03/17 12:41 11/03/17 12:41 11/03/17 12:41 General appearance: Present: cooperative, disheveled, A&O X 3, pleasant, no acute distress, answers questions appropriately - Head Head exam: Present: atraumatic, normocephalic - Eye Eye exam: Present: conjuntiva pink, sclera anicteric - Respiratory Respiratory exam: Present: CTAB. Absent: accessory muscle use, rales, rhonchi, wheezes - Cardiovascular Cardiovascular exam: Present: RRR, +S1, +S2. Absent: diastolic murmur, gallop, rubs, systolic murmur - GI/Abdominal GI/Abdominal exam: Present: normal bowel sounds, soft, no peritoneal signs. Absent: distended, tenderness - Extremities Exam Extremities exam: Present: warm, radial pulses palpable and symmetrical. Absent : calf tenderness, cyanotic, pedal edema - Neurological Exam Neurological exam: Present: alert, oriented X3 - Psychiatric Psychiatric exam: Present: normal affect, normal mood Internal Medicine: Result - Labs CBC & Chem 7: 11/02/17 22:04 11/02/17 22:04 Labs: Short CBC 11/02/17 Range/Units 22:04 WBC 8.1 (4.3-11.1) K/mcL Hgb 14.3 (12.9-16.9) g/dL Hct 42.3 (37.5-50.1) % Plt Count 318 (140-400) K/mcL Neutrophils # 3.8 (1.6-8.9) K/mcL BMP 11/02/17 22:04 Sodium 133 L Potassium 4.1 Chloride 101 Carbon Dioxide 23 BUN 19 Creatinine 1.01 Glucose 143 H Calcium 9.2 Cardiac Enzymes 11/02/17 11/03/17 11/03/17 Range/Units 22:04 02:44 09:18 Troponin I < 0.03 < 0.03 < 0.03 (< 0.04) ng/mL Liver Function 11/02/17 Range/Units 22:04 Total Bilirubin 0.4 (0.3-1.0) mg/dL AST 25 (13-39) Units/L ALT 45 (7-52) Units/L Alkaline Phosphatase 81 (34-104) Units/L Albumin 4.1 (3.5-5.7) g/dL - ABG Interpretation ABG results: PT/INR, D-dimer PT 11.4 Seconds (9.4-12.1) 11/02/17 22:04 - Impressions Impressions Chest CTA 11/02/17 20:43 IMPRESSION: 1. Interval decrease in burden of pulmonary embolism within the right lower lobe. 2. No new pulmonary embolism. D/ / 11/02/2017 22:43:45 Tru Nj MD / Rosy Bernard Interpreting Provider: Tru Nj MD - VTE Reasons for not Prescribing Prophylaxis: Treatment not Indicated - Low risk for VTE Consult Discharge Plan - Plan Referrals: NONE,PCP [Primary Care Provider] -
[2017-11-03] MEDS ORDERED: NON-FORMULARY MEDICATION 1 EACH EACH (Quetiapine Fumarate [Seroquel] 400 MG) PO SCH (21:00)
[2017-11-04] MEDS: Heparin 25,000 UNIT/500 ML D5W 25,000 UNIT/500 ML BAG IVC SCH (02:38)
[2017-11-04 05:46] LABS: Basophils % 0.4 %; Eosinophils # 0.2 K/mcL (0.0-0.6); Eosinophils % 2.3 %; Hematocrit 40.6 % (37.5-50.1); Hemoglobin 13.6 g/dL (12.9-16.9); Immature Granulocytes % 0.3 % (0-4); Lymphocytes # 3.7 K/mcL (0.6-4.6); Lymphocytes % 49.5 %; Mean Corpuscular HGB Conc 33.5 g/dL (31.6-35.5); Mean Corpuscular Hemoglobin 30.4 pg (28.0-33.3); Mean Corpuscular Volume 90.8 fL (83.0-100.0); Mean Platelet Volume 10.7 fL (9.4-12.4); Monocytes # 0.7 K/mcL (0.0-1.3); Monocytes % 8.8 %; Neutrophils # 2.9 K/mcL (1.6-8.9); Nucleated Red Blood Cells 0.3 /100 WBC (0); Platelet Count 300 K/mcL (140-400); Red Blood Count 4.47 M/mcL (4.19-5.50); Red Cell Distribution Width 12.9 % (11.5-14.5); Segmented Neutrophils % 38.7 %
[2017-11-04 06:15] LABS: BUN/Creatinine Ratio 14 (6-26); Blood Urea Nitrogen 12 mg/dL (6-20); Calcium 9.2 mg/dL (8.6-10.3); Carbon Dioxide 25 mEq/L (23-29); Chloride 106 mEq/L (98-107); Glucose 88 mg/dL (70-105); Osmolality,Calculated 289 (280-300); Phosphorous 4.1 mg/dL (2.7-4.5); Sodium 140 mEq/L (136-145); eGFR For African Americans > 60 (> 60); eGFR For Non-African Americans > 60 (> 60)
[2017-11-04 06:37] LABS: Activated Partial Thrombo Time 166.2 Seconds (26.0-36.0)
[2017-11-04 08:00] LABS: Heparin anti-factor XA UFH 1.07 IU/mL (0.30-0.70)
[2017-11-04] MEDS ORDERED: *HR* Rivaroxaban 15 MG TABLET PO SCH (09:00)
--- NOTE | 2017-11-04 09:32 | Discharge Summary ---
Date of Encounter: 11/04/17 Time of Encounter: 09:10 - Discharge Diagnosis (1) Chest pain Priority: Primary Status: Resolved Qualifiers: Chest pain type: unspecified Qualified Code(s): R07.9 - Chest pain, unspecified (2) Pulmonary embolism Priority: Secondary Status: Chronic Qualifiers: Pulmonary embolism type: other Chronicity: unspecified Acute cor pulmonale presence: without acute cor pulmonale Qualified Code(s): I26.99 - Other pulmonary embolism without acute cor pulmonale (3) DVT prophylaxis Priority: Secondary Status: Acute (4) Hallucinations Priority: Secondary Status: Chronic - Discharge Medications Home Medications: RX: Divalproex Sodium [Depakote] 250 mg PO BID 10/20/17 [History] RX: Lisinopril [Zestril] 5 mg PO DAILY 10/20/17 [History] RX: Propranolol [Inderal] 20 mg PO BID 10/20/17 [History] RX: Lurasidone [Latuda] 120 mg PO DAILY 11/02/17 [History] RX: Quetiapine Fumarate [Seroquel] 400 mg PO HS 11/02/17 [History] RX: hydrOXYzine pamoate [HydrOXYzine Pamoate] 25 mg PO TID PRN 11/02/17 [History ] RX: Naltrexone HCl [Revia] 50 mg PO DAILY 11/03/17 [History] RX: Rivaroxaban [Xarelto] 1 dose PO AD 30 Days pack 11/04/17 [Rx] Allergies/Adverse Reactions: 3 Allergy/AdvReac Type Severity Reaction Status Date / Time No Known Allergies Allergy Verified 06/01/17 14:51 Procedures/tests Complete & Pending: Procedures Performed prior 72 hours Category Date Time Status CT angio chest [CT] Stat Cat Scan 11/02/17 20:43 Completed ECG 12 lead ECG [ECG] AM 0600 Y 11/03/17 06:00 Ordered ECG 12 lead ECG [ECG] Routine Y 11/02/17 20:06 Completed Date of admission: 11/02/17 20:36 Primary care physician: PCP NONE Consults: 11/03/17 14:49 Consult to Psychiatry [CONS] Routine Consulting Provider: Psychiatry Vandana Reason for Consult: psychosis Call Completed: Yes Discharging clinician: Migdalia Tamez Anticipated date of discharge: 11/04/17 - Patient Status Disposition: Transfer Other Condition: Good Functional capacity at discharge: independent ambulation Overall status at discharge: patient is back to baseline - Discharge Instructions Follow Up With: NONE,PCP [Primary Care Provider] - Additional Instructions: Please follow up with your primary care physician within five days after your discharge from the hospital. Continue Xarelto as prescribed. Xarelto increases your risk of bleeding, if you sustain a fall or have any acute bleeding, please seek medical help immediately. Resume all other medications as prescribed by your primary care physician and psychiatrist. - Diet and Activity Activity: increase activity as tolerated Diet: advance to your usual diet Hospital course: Mr. Miller is a 37 year old male with PMH of PE, psych disorder who was transferred from inpatient psych for management of chest pain. He was recently discharged to psych inpatient after being diagnosed and initiating treatment for acute PE. Repeat CTA chest reported decrease in clot burden and pt was started on heparin gtt for 24 hours. His serial TNI remained negative. He is currently chest pain free and has been transitioned to Xarelto. Pt denies any discomfort at this time. He will be discharged from medical service and transferred to inpatient psych. - Time Spent with Patient Total time spent providing and/or coordinating discharge services: Less than 30 minutes - Constitutional Vitals: Temp Pulse Resp BP Pulse Ox 98.9 F 76 18 98/60 96 11/04/17 04:14 11/04/17 04:14 11/04/17 04:14 11/04/17 04:14 11/04/17 04:14 General appearance: Present: cooperative, disheveled, A&O X 3, pleasant, no acute distress, answers questions appropriately - Head Head exam: Present: atraumatic, normocephalic - Eye Eye exam: Present: conjuntiva pink, sclera anicteric - Respiratory Respiratory exam: Present: CTAB. Absent: accessory muscle use, rales, rhonchi, wheezes - Cardiovascular Cardiovascular exam: Present: RRR, +S1, +S2. Absent: diastolic murmur, gallop, rubs, systolic murmur - GI/Abdominal GI/Abdominal exam: Present: normal bowel sounds, soft, no peritoneal signs. Absent: distended, tenderness - Extremities Exam Extremities exam: Present: warm, radial pulses palpable and symmetrical. Absent : calf tenderness, cyanotic, pedal edema - Neurological Exam Neurological exam: Present: alert, oriented X3 - Psychiatric Psychiatric exam: Present: normal affect, normal mood - VTE Reasons for not Prescribing Prophylaxis: Treatment not Indicated - Low risk for VTE
[2017-11-04 09:34] VITALS: BP 115/76
[2017-11-04] MEDS: Divalproex (12 HR) 250 MG TABLET PO SCH (10:16)
--- NOTE | 2017-11-04 17:05 | Electrocardiograph Report ---
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
[2017-11-12] MEDS ORDERED: *HR* Rivaroxaban 10 MG TABLET PO SCH (17:00)
== END 2017-11-04 10:57 ==
LOC: 2ANU 20:36 → INTOOBSV 20:36
PROVIDERS: ADMIT Pediatrics; ATTEND Internal Medicine

== ENCOUNTER 2017-11-04 11:01 | Inpatient (IN) ==
[2017-11-04] MEDS ORDERED: Mag Hydrox/Al Hydrox/Simeth 30 ML UDC PO PRN (11:25)
[2017-11-04] MEDS ORDERED: *HR* LORazepam 1 MG TABLET PO PRN (11:25)
[2017-11-04] MEDS ORDERED: *HR* LORazepam 2 MG/ML VIAL IM PRN (11:25)
[2017-11-04] MEDS ORDERED: Haloperidol Lactate 5 MG/ML VIAL IM PRN (11:25)
[2017-11-04] MEDS ORDERED: MOM Conc 10 ML UD.LIQ PO PRN (11:25)
[2017-11-04] MEDS: hydrOXYzine pamoate 25 MG CAPSULE PO PRN (11:39)
[2017-11-04] MEDS: Acetaminophen 325 MG TABLET PO PRN ×2 (11:39→20:32)
[2017-11-04] MEDS: Nicotine 2 MG GUM BC PRN (11:40)
[2017-11-04] MEDS: Divalproex (24 HR) 250 MG TABLET PO SCH (20:33)
[2017-11-04] MEDS: *HR* Rivaroxaban 15 MG TABLET PO SCH (20:33)
[2017-11-05] MEDS: Divalproex (24 HR) 250 MG TABLET PO SCH ×2 (08:19→20:40)
[2017-11-05] MEDS: *HR* Rivaroxaban 15 MG TABLET PO SCH ×2 (08:20→20:40)
[2017-11-05] MEDS: NALTREXONE HCL 50 MG TABLET PO SCH (08:20)
--- NOTE | 2017-11-05 12:37 | Psychiatry History & Physical ---
Date of Encounter: 11/05/17 Time of Encounter: 11:10 History of Present Illness Patient Stated Chief Complaint: "I'm feeling better." Medicare Admission Attestation: For traditional Medicare patients the provided hospital inpatient services are reasonable and necessary and in the case of services not specified as inpatient -only under 42 CFR 419.22 (n), that they are appropriately provided as inpatient services in accordance 42 CFR 412.3. For Critical Access Hospital the patient may reasonably be expected to be discharged or transferred to a hospital within 96 hours after admission to the Critical Access Hospital. Admitted From: Intrahospital Transfer Plans for Post Hospital Care: Transfer Other History of Present Illness: Mr. Miller is a 37 year old male who is readmitted to after having been our unit last week and then being emergent moved to a medical floor for observation. While on the unit approximately 2 days ago, one evening he was experiencing a very severe headache and also complained of chest pains in the same area where he previously had a pulmonary embolism. He was moved off the unit up to a medical floor for evaluation/observation to rule out a new pulmonary embolism. Medical workup was completed. The patient was cleared and is being readmitted back to psychiatric unit pending placement in a dual mental health/[facility] facility. Patient states that he is feeling fine. He denies any ongoing mental health issues. He is stable on his medications. He denies any side effects. He denies any auditory or visual hallucinations. He denies any thoughts of hurting himself or anybody else. He understands that they are waiting on outpatient placement for him and that that is why he is back on the unit. He has no complaints. Past Med Surg Social Fam HX - Past Medical History Medical history: hyperlipidemia, hypertension, pulmonary embolus - Past Psychiatric History Psychiatric history: Reports: schizophrenia, previous psychiatric hospitalization Family psychiatric history: Unknown Family History of Suicide: Unknown - Past Surgical History Surgical History: appendectomy, arthroscopy - Social History Smoking Status: Current every day smoker Smokeless Tobacco Status: Yes Alcohol use: occasionally Drug use: cocaine, marijuana, methamphetamine Occupational status: disabled Current living situation: Assisted Living Activity Level: Independent ambulation Recent Out of Country Travel Within the Last 8 Weeks: No Exposure or Possible Exposure to Illness During Travel: No - Family History Father Adopted: No Family Member Ethnicity: Non- Living Status: Still Living Hx Family Cardiac Disorders: Yes Hx Family Respiratory Disorders: No Hx Family Cancer: Yes Hx Family GI Disorders: No Hx Family Genitourinary Disorders: No Hx Family Endocrine Disorder: Yes Hx Family Musculoskeletal Disorders: No Hx Family Neuromuscular Disorders: No Hx Family Neurologic Disorders: No Hx Family HEENT Disorders: No Hx Family Autoimmune Disorders: No Hx Family Reproductive Disorders: No Hx Family Psychosocial Disorders: Yes Medications & Allergies Divalproex Sodium [Depakote] 250 mg PO BID 10/20/17 [History] Lisinopril [Zestril] 5 mg PO DAILY 10/20/17 [History] Propranolol [Inderal] 20 mg PO BID 10/20/17 [History] Lurasidone [Latuda] 120 mg PO DAILY 11/02/17 [History] Quetiapine Fumarate [Seroquel] 400 mg PO HS 11/02/17 [History] hydrOXYzine pamoate [HydrOXYzine Pamoate] 25 mg PO TID PRN 11/02/17 [History] Naltrexone HCl [Revia] 50 mg PO DAILY 11/03/17 [History] Rivaroxaban [Xarelto] 1 dose PO AD 30 Days pack 11/04/17 [Rx] 3 Allergy/AdvReac Type Severity Reaction Status Date / Time No Known Allergies Allergy Verified 06/01/17 14:51 Mental Status Exam Patient orientation: Yes Person, Yes Time, Yes Place, Yes Circumstance Level of alertness: Alert Patient appearance: Appropriate Behavior: calm Psychomotor activity: Normal Eye contact: Maintains Eye Contact Mood description: Euthymic/stable Affect description: congruent with mood Speech pattern: Normal rate, Normal rhythm, Normal tone Speech volume: Normal Thought process: Intact, Goal Oriented Thought content: Yes Intact Attention span: Capable of Focused Attention Memory description: Grossly Intact Patient reliability: Questionable Historian Intelligence estimate: Below Average Judgment: Fair Insight: Partial Exam - HEENT Head exam IM: Present: atraumatic Results - Vital Signs Vital signs: Temp Pulse Resp BP 97.0 F L 75 16 108/79 11/05/17 08:48 11/05/17 08:48 11/05/17 08:48 11/05/17 08:48 Assessment and Plan (1) Schizophrenia Current visit: No Status: Chronic Plan: Admit inpatient for safety and stabilization Patient agreeable to treatment: Yes Plans for Post Hospital Care: Transfer Jail Facility Estimated Length of Stay (Days): 7
[2017-11-05] MEDS: Acetaminophen 325 MG TABLET PO PRN ×2 (16:26→22:38)
[2017-11-06] MEDS: NALTREXONE HCL 50 MG TABLET PO SCH (08:31)
[2017-11-06] MEDS: Divalproex (24 HR) 250 MG TABLET PO SCH ×2 (08:31→20:29)
[2017-11-06] MEDS: hydrOXYzine pamoate 25 MG CAPSULE PO PRN (13:10)
--- NOTE | 2017-11-06 13:28 | Psychiatry Progress Note ---
Date of Encounter: 11/06/17 Time of Encounter: 13:25 Subjective Interval history: I met with patient to check in for the day and see how he was doing. He just finished taking a shower and his hair was still wet and was dripping on his clean clothes. He told me he was feeling fine, in regards to his mental health , but he was feeling a little lightheaded. He denied having a headache or chest pain. I walked with the patient down to his room and encouraged him to drink some water and to sit down or lie down on his bed and rest. I told him I would imagine that he was a little lightheaded after having been the shower. ( Staff reported that he had been an shower for an extended period of time.) They said they would continue to watch him and check his vitals which were currently stable. Patient was a little anxious secondary to being lightheaded but denied any other issues. He denied any suicidal/homicidal ideation. He denied any auditory or visual hallucinations. He stated he was sleeping fine and denied any issues on the unit. Objective: Exam Patient orientation: Yes Person, Yes Time, Yes Place, Yes Circumstance Level of alertness: Alert Patient appearance: Unkempt (His clothes were wet from his wet hair dripping after his shower. ) Behavior: anxious Psychomotor activity: Normal Eye contact: Maintains Eye Contact Mood description: Anxious Affect description: congruent with mood Speech pattern: Normal rate, Normal rhythm, Normal tone Speech volume: Normal Thought process: Circumstantial Thought content: Yes Intact Judgment: Fair Insight: Partial Results - Vital Signs Vital Signs: Temp Pulse Resp BP 98.0 F 94 16 109/77 11/06/17 09:00 11/06/17 09:00 11/06/17 09:00 11/06/17 09:00 Assessment and Plan (1) Schizophrenia Current visit: No Status: Chronic Plan: Continue hospitalization, Close observation, Group Therapy, Monitor sleep Risks, benefits, side effects, alternatives discussed w/pt: Yes (Pending ECF placement) Patient agreeable to treatment: Yes Qualifiers: Schizophrenia type: disorganized schizophrenia Qualified Code(s): F20.1 - Disorganized schizophrenia Consult Discharge Plan - Plan Referrals: [facility] [Outside]
[2017-11-06] MEDS: Acetaminophen 325 MG TABLET PO PRN (17:46)
[2017-11-06] MEDS: *HR* Rivaroxaban 10 MG TABLET PO SCH (17:47)
[2017-11-06] MEDS: traZODone 50 MG TABLET PO PRN (20:30)
[2017-11-07] MEDS: NALTREXONE HCL 50 MG TABLET PO SCH (08:33)
[2017-11-07] MEDS: Divalproex (24 HR) 250 MG TABLET PO SCH ×2 (08:33→20:05)
--- NOTE | 2017-11-07 13:29 | Psychiatry Progress Note ---
Date of Encounter: 11/07/17 Time of Encounter: 13:25 Subjective Interval history: Patient tells me that he physically feels better today than when I saw him yesterday. He has no physical complaints today. He is sleeping okay, eating okay. He is hopeful that they will find a place for him to live soon. He denies any suicidal/homicidal ideation. He denies any auditory visual hallucination. He denies any issues with others on the unit. No other complaints. Objective: Exam Patient orientation: Yes Person, Yes Time, Yes Place, Yes Circumstance Level of alertness: Alert Patient appearance: Appropriate Behavior: calm Psychomotor activity: Normal Eye contact: Maintains Eye Contact Mood description: Euthymic/stable Affect description: congruent with mood Speech pattern: Normal rate, Normal rhythm, Normal tone Speech volume: Normal Thought process: Intact, Linear, Goal Oriented Thought content: Yes Intact Judgment: Fair Insight: Partial Results - Vital Signs Vital Signs: Temp Pulse Resp BP 97.6 F 91 16 116/81 11/07/17 08:24 11/07/17 08:24 11/07/17 08:24 11/07/17 08:24 Assessment and Plan (1) Schizophrenia Current visit: No Status: Chronic Plan: Close observation Risks, benefits, side effects, alternatives discussed w/pt: Yes (Pending ECF placement) Patient agreeable to treatment: Yes Qualifiers: Schizophrenia type: disorganized schizophrenia Qualified Code(s): F20.1 - Disorganized schizophrenia Consult Discharge Plan - Plan Referrals: [facility] [Outside] - 11/23/17 3:30 pm (The above appointment is with Yaritza Ortiz for outpatient psychiatric assessment and medication management services.)
[2017-11-07] MEDS: Nicotine 2 MG GUM BC PRN (13:35)
[2017-11-07] MEDS: Acetaminophen 325 MG TABLET PO PRN (13:35)
[2017-11-07] MEDS: hydrOXYzine pamoate 25 MG CAPSULE PO PRN ×2 (13:36→20:05)
[2017-11-07] MEDS: *HR* Rivaroxaban 10 MG TABLET PO SCH (17:58)
[2017-11-07] MEDS: traZODone 50 MG TABLET PO PRN (20:06)
[2017-11-08] MEDS: Divalproex (24 HR) 250 MG TABLET PO SCH ×2 (08:27→20:52)
[2017-11-08] MEDS: NALTREXONE HCL 50 MG TABLET PO SCH (08:27)
[2017-11-08] MEDS: hydrOXYzine pamoate 25 MG CAPSULE PO PRN ×2 (12:16→20:52)
[2017-11-08] MEDS: Acetaminophen 325 MG TABLET PO PRN ×2 (12:16→20:52)
--- NOTE | 2017-11-08 12:40 | Psychiatry Progress Note ---
Date of Encounter: 11/08/17 Time of Encounter: 11:15 Subjective Interval history: Patient is excited today that he has an interview with a facility for placement. He feels nervous. He denies any mental health issues. He is stable , just concerned about what questions they are going to ask him. He talks to me about wanting to shower and look his best for the interview. No delusional thought. No A/V hallucinations. His mood is stable. He is appropriate and happy. Objective: Exam Patient orientation: Yes Person, Yes Place, Yes Circumstance Level of alertness: Alert Patient appearance: Appropriate Additional observations: Future oriented and happy, smiling Behavior: calm Psychomotor activity: Normal Eye contact: Maintains Eye Contact Mood description: Euthymic/stable Affect description: congruent with mood Speech pattern: Normal rate, Normal rhythm, Normal tone, Appropriate Speech volume: Normal Thought process: Intact, Linear, Goal Oriented Thought content: Yes Intact Judgment: Fair Insight: Partial Results - Vital Signs Vital Signs: Temp Pulse Resp BP 97.6 F 116 19 113/77 11/08/17 08:25 11/08/17 08:25 11/08/17 08:25 11/08/17 08:25 Assessment and Plan (1) Schizophrenia Current visit: No Status: Chronic Plan: Close observation Risks, benefits, side effects, alternatives discussed w/pt: Yes (Pending ECF placement) Patient agreeable to treatment: Yes Qualifiers: Schizophrenia type: disorganized schizophrenia Qualified Code(s): F20.1 - Disorganized schizophrenia Consult Discharge Plan - Plan Referrals: [facility] [Outside] - 11/23/17 3:30 pm (The above appointment is with Yaritza Ortiz for outpatient psychiatric assessment and medication management services.)
[2017-11-08] MEDS: *HR* Rivaroxaban 10 MG TABLET PO SCH (17:48)
[2017-11-08] MEDS: traZODone 50 MG TABLET PO PRN (20:52)
[2017-11-09] MEDS: NALTREXONE HCL 50 MG TABLET PO SCH (09:23)
[2017-11-09] MEDS: Divalproex (24 HR) 250 MG TABLET PO SCH ×2 (09:23→20:38)
--- NOTE | 2017-11-09 13:39 | Psychiatry Progress Note ---
Date of Encounter: 11/09/17 Time of Encounter: 13:30 Subjective Interval history: Patient tells me he is very happy. He got accepted to the extended care facility and will be discharging as soon as they get the paperwork done. He denies any side effects of his medications. He denies issues with sleeping. He states his mood is stable and is looking forward to being discharged. No auditory or visual hallucinations. No suicidal homicidal ideation. Objective: Exam Patient orientation: Yes Person, Yes Time, Yes Place, Yes Circumstance Level of alertness: Alert Patient appearance: Appropriate, Obese Behavior: other (happy) Psychomotor activity: Normal Eye contact: Maintains Eye Contact Mood description: Euthymic/stable Affect description: congruent with mood Speech pattern: Normal rate, Normal rhythm, Normal tone, Appropriate Speech volume: Normal Thought process: Intact, Logical, Linear, Goal Oriented Thought content: Yes Intact Judgment: Good Insight: Full Results - Vital Signs Vital Signs: Temp Pulse Resp BP 97.8 F 96 18 108/78 11/09/17 09:00 11/09/17 09:00 11/09/17 09:00 11/09/17 09:00 Assessment and Plan (1) Schizophrenia Current visit: No Status: Chronic Plan: Close observation Risks, benefits, side effects, alternatives discussed w/pt: Yes (Pending ECF placement) Patient agreeable to treatment: Yes Qualifiers: Schizophrenia type: disorganized schizophrenia Qualified Code(s): F20.1 - Disorganized schizophrenia Consult Discharge Plan - Plan Referrals: [facility] [Outside] - 11/23/17 3:30 pm (The above appointment is with Yaritza Ortiz for outpatient psychiatric assessment and medication management services.)
[2017-11-09] MEDS: *HR* Rivaroxaban 10 MG TABLET PO SCH (16:35)
[2017-11-09] MEDS: traZODone 50 MG TABLET PO PRN (20:38)
[2017-11-09] MEDS: Acetaminophen 325 MG TABLET PO PRN (20:38)
[2017-11-09] MEDS: hydrOXYzine pamoate 25 MG CAPSULE PO PRN (20:38)
[2017-11-10] MEDS: Divalproex (24 HR) 250 MG TABLET PO SCH ×2 (08:22→21:43)
[2017-11-10] MEDS: NALTREXONE HCL 50 MG TABLET PO SCH (08:22)
--- NOTE | 2017-11-10 13:31 | Psychiatry Progress Note ---
Date of Encounter: 11/10/17 Time of Encounter: 13:30 Subjective Interval history: Patient denies any issues. He is still excited about leaving soon as his acceptance has happened at the ECF and they are processing his paperwork. He denies any A/V hallucinations. His mood is stable. He is eating and sleeping fine and taking his meds without side effects. No other complaints. Objective: Exam Patient orientation: Yes Person, Yes Time, Yes Place, Yes Circumstance Level of alertness: Alert Patient appearance: Appropriate Behavior: calm Psychomotor activity: Normal Eye contact: Maintains Eye Contact Mood description: Euthymic/stable Affect description: congruent with mood Speech pattern: Normal rate, Normal rhythm, Normal tone, Appropriate Speech volume: Normal Thought process: Intact, Linear, Goal Oriented Thought content: Yes Intact Judgment: Fair Insight: Partial Results - Vital Signs Vital Signs: Temp Pulse Resp BP 97.2 F L 101 20 120/82 11/10/17 09:00 11/10/17 09:00 11/10/17 09:00 11/10/17 09:00 Assessment and Plan (1) Schizophrenia Current visit: No Status: Chronic Plan: Close observation Risks, benefits, side effects, alternatives discussed w/pt: Yes (Pending ECF placement) Patient agreeable to treatment: Yes Qualifiers: Schizophrenia type: disorganized schizophrenia Qualified Code(s): F20.1 - Disorganized schizophrenia Consult Discharge Plan - Plan Referrals: [facility] [Outside] - 11/23/17 3:30 pm (The above appointment is with Yaritza Ortiz for outpatient psychiatric assessment and medication management services.)
[2017-11-10] MEDS: *HR* Rivaroxaban 10 MG TABLET PO SCH (15:51)
[2017-11-10] MEDS: Acetaminophen 325 MG TABLET PO PRN ×2 (15:51→21:12)
[2017-11-10] MEDS: Nicotine 2 MG GUM BC PRN (18:32)
[2017-11-10] MEDS: hydrOXYzine pamoate 25 MG CAPSULE PO PRN (20:33)
[2017-11-10] MEDS: traZODone 50 MG TABLET PO PRN (20:35)
[2017-11-11] MEDS: Divalproex (24 HR) 250 MG TABLET PO SCH ×2 (08:55→21:00)
[2017-11-11] MEDS: NALTREXONE HCL 50 MG TABLET PO SCH (08:55)
--- NOTE | 2017-11-11 10:27 | Psychiatry Progress Note ---
Date of Encounter: 11/11/17 Time of Encounter: 10:20 Subjective Interval history: Patient denied any problems today. No side effects of his medications. He continues to look forward to discharging to the extended care facility soon. He denies any suicidal ideation. He denies any homicidal ideation. He denies any auditory or visual hallucinations, any psychosis nor delusions. He is participating periodically on the unit in programming and is interacting with staff and other peers appropriately. Discharge Addendum 11/12/2017 @ 11:15 AM. Last evening at approximately 1030pm, patient reported to nursing that he was having bad chest pains, having a hard time catching his breath, was feeling pain radiating into his left arm, having a bad headache. Vitals were taken and patient had a room air oxygen percentage of 85%. Rapid response was called. Patient was moved to a medical floor for observation to rule out possible pulmonary embolism or cardiac event. Patient is stable regarding his mental health. Patient will be followed by psychiatry on the floor and will be readmitted to the unit pending ECF placement once discharged/medically cleared. Objective: Exam Patient orientation: Yes Person, Yes Time, Yes Place, Yes Circumstance Level of alertness: Alert Patient appearance: Appropriate, Unkempt Behavior: calm Psychomotor activity: Normal Eye contact: Maintains Eye Contact Mood description: Euthymic/stable (Happy) Affect description: congruent with mood Speech pattern: Normal rate, Normal rhythm, Normal tone, Appropriate Speech volume: Normal Thought process: Intact, Goal Oriented Thought content: Yes Intact Judgment: Fair Insight: Partial Results - Vital Signs Vital Signs: Temp Pulse Resp BP 96.4 F L 96 14 111/80 11/11/17 09:00 11/11/17 09:00 11/11/17 09:00 11/11/17 09:00 Assessment and Plan (1) Schizophrenia Status: Chronic Plan: Continue hospitalization, Close observation Risks, benefits, side effects, alternatives discussed w/pt: Yes (Pending ECF placement) Patient agreeable to treatment: Yes Qualifiers: Schizophrenia type: disorganized schizophrenia Qualified Code(s): F20.1 - Disorganized schizophrenia Consult Discharge Plan - Plan Referrals: [facility] [Outside] - 11/23/17 3:30 pm (The above appointment is with Yaritza Ortiz for outpatient psychiatric assessment and medication management services.)
[2017-11-11] MEDS: hydrOXYzine pamoate 25 MG CAPSULE PO PRN ×2 (13:42→21:02)
[2017-11-11] MEDS: Acetaminophen 325 MG TABLET PO PRN ×2 (13:42→20:07)
[2017-11-11] MEDS: *HR* Rivaroxaban 10 MG TABLET PO SCH (18:06)
[2017-11-11] MEDS: traZODone 50 MG TABLET PO PRN (21:00)
[2017-11-11 21:34] VITALS: BP 111/76
--- NOTE | 2017-11-23 14:54 | Discharge Summary ---
Date of Encounter: 11/11/17 Time of Encounter: 23:15 Diagnosis - Discharge Diagnosis (1) Schizophrenia Status: Chronic Medications - Discharge Medications Divalproex Sodium [Depakote] 250 mg PO BID 10/20/17 [History] Divalproex (12 HR) [Depakote (12 HR)] 250 mg PO BID 30 Days #60 tablet. [Rx] Lisinopril [Zestril] 5 mg PO DAILY 30 Days #30 tablet 11/18/17 [Rx] Lurasidone [Latuda] 120 mg PO DAILY 30 Days #30 tablet 11/18/17 [Rx] Lurasidone [Latuda] 120 mg PO DAILY 30 Days #30 tablet 11/18/17 [Rx] Naltrexone HCl 50 mg PO DAILY 30 Days #30 tablet 11/18/17 [Rx] Propranolol [Inderal] 20 mg PO BID 60 Days #30 tablet 11/18/17 [Rx] Quetiapine Fumarate [Seroquel] 400 mg PO HS 30 Days #30 tablet 11/18/17 [Rx] Rivaroxaban [Xarelto] 15 mg PO BID 30 Days #60 tablet 11/18/17 [Rx] Rivaroxaban [Xarelto] 15 mg PO BID 60 Days #30 tablet 11/18/17 [Rx] hydrOXYzine pamoate [HydrOXYzine Pamoate] 25 mg PO TID PRN 30 Days #30 capsule 11/18/17 [Rx] hydrOXYzine pamoate [HydrOXYzine Pamoate] 25 mg PO TID PRN 30 Days #90 capsule 11/18/17 [Rx] traZODone [TraZODone] 50 mg PO HS PRN 30 Days #30 tablet 11/18/17 [Rx] 3 Allergy/AdvReac Type Severity Reaction Status Date / Time No Known Allergies Allergy Verified 06/01/17 14:51 Provider Date of admission: 11/04/17 11:01 Primary care physician: PCP NONE Assessment and Plan - Follow up Plan Follow up with: [facility] [Outside] - 11/23/17 3:30 pm (The above appointment is with Yaritza Ortiz for outpatient psychiatric assessment and medication management services.) Disposition: Still a Patient Hospital Course Hospital course: Late entry secondary to medical records needing a separate discharge summary from previously noted addendum Mr. Miller is a 37 year old male who on the evening of 11/11/2017 patient reported to nursing that he was having bad chest pains, having a hard time catching his breath, was feeling pain radiating into his left arm, having a bad headache. Vitals were taken and patient had a room air oxygen percentage of 85% . Rapid response was called. Patient was moved to a medical floor for observation to rule out possible pulmonary embolism or cardiac event. Patient is stable regarding his mental health. Patient will be followed by psychiatry on the floor and will be readmitted to the unit pending ECF placement once discharged/medically cleared. - Time Spent with Patient Total time spent providing and/or coordinating discharge services: 0 Min Less than 30 minutes Quality - Multiple Antipsychotics Patient discharged on 2 or more antipsychotic medications: Yes - Justification Documentation of: History 3 failed trials of monotherapy
== END 2017-11-11 23:15 | disposition still patient (30) | DRG 750 ==
LOC: 1ANU 11:01
PROVIDERS: ADMIT Psychiatry & Neurology Psychiatry; ATTEND Psychiatry & Neurology Psychiatry

== ENCOUNTER 2017-11-11 22:31 | Observation (INO) ==
[2017-11-11] MEDS ORDERED: Acetaminophen 325 MG TABLET PO PRN (23:47)
[2017-11-11] MEDS ORDERED: *HR* HYDROcodone/Acet 5/325 mg TABLET PO PRN (23:47)
[2017-11-11] MEDS ORDERED: Naloxone 0.4 MG/ML INJ IVP PRN (23:47)
[2017-11-11] MEDS ORDERED: hydrOXYzine pamoate 25 MG CAPSULE PO PRN (23:51)
[2017-11-11] MEDS ORDERED: Nitroglycerin 0.4 MG TAB.SUBL SL PRN (23:53)
[2017-11-11] MEDS ORDERED: Ipratropium/Albuterol Neb 3 ML IH PRN (23:53)
--- NOTE | 2017-11-11 23:59 | Internal Med History&Physical ---
Date of Encounter: 11/11/17 Time of Encounter: 23:30 Assessment and Plan (1) Chest pain Current visit: No Status: Acute will place the pt into Tele for observation Rt side chest pain..mostly due to his recent PE Will get an EKG now Will get stat CXR place him on ASA 81mg cont BB will check FLP in AM reviewed 2 D Echo from last month showed preserved LVEF..No RV strain noticed Will check serial troponin Qualifiers: Chest pain type: unspecified Qualified Code(s): R07.9 - Chest pain, unspecified (2) Hypoxia Current visit: Yes Status: Acute His SPo2 85% on RA at 1A will put him on o2 at 2 lit will check over night pulse oxy he may need home O2 eval in AM Duoneb PRN No need of steroids (3) Hypertension Current visit: No Status: Chronic resumed home meds Qualifiers: Hypertension type: essential hypertension Qualified Code(s): I10 - Essential (primary) hypertension (4) Pulmonary embolism Current visit: No Status: Chronic cont Xarelto no need to repeat another CTA..he had 2 in last one month cont close monitoring will f/u on CXR Qualifiers: Pulmonary embolism type: other Chronicity: unspecified Acute cor pulmonale presence: without acute cor pulmonale Qualified Code(s): I26.99 - Other pulmonary embolism without acute cor pulmonale (5) Schizophrenia Current visit: No Status: Chronic resumed psych medication will consult pysch to f/u on this pt here Qualifiers: Schizophrenia type: disorganized schizophrenia Qualified Code(s): F20.1 - Disorganized schizophrenia Internal Medicine - H&P: HPI Chief complaint: Chest pain, hypoxia Admitted From: Intrahospital Transfer Plans for Post Hospital Care: Transfer Psych Facility History of present illness: Mr. Miller is a 37 year old male with known PMH of Schizophrenia, Bipolar who has chronic PE and currently on Xarelto for anticoagulation, who is in our psychiatric unit getting active in pt treatment for his schizophrenia pt did c/ o chest pain tonight. So psychiatric unit did call for Rapid response. When I attended [employer] pt's is resting in chair in [address], he does c/o Rt sided chest pain, non radiating, sharp pain, 6/10 in severity, worsening with deep inspiration. His initial vitals showed Spo2 85% on RA. However when I examined him his Spo2 94% on RA. Pt was moved to regular telemetry for close monitoring. He denied any CP now. He does c/o headaches now. He denied any fever / chills, no cold and cough. Past Med Surg Social Fam HX - Past Medical History Medical history: hyperlipidemia, hypertension, pulmonary embolus Psychiatric history: schizophrenia, previous psychiatric hospitalization - Past Surgical History Surgical History: appendectomy, arthroscopy - Social History Smoking Status: Current every day smoker Smokeless Tobacco Status: Yes Alcohol use: occasionally Drug use: cocaine, marijuana, methamphetamine - Family History Father Adopted: No Family Member Ethnicity: Non- Living Status: Still Living Hx Family Cardiac Disorders: Yes Hx Family Respiratory Disorders: No Hx Family Cancer: Yes Hx Family GI Disorders: No Hx Family Endocrine Disorder: Yes Hx Family Neuromuscular Disorders: No Hx Family Neurologic Disorders: No Hx Family HEENT Disorders: No Hx Family Autoimmune Disorders: No Internal Medicine - H&P: Meds Divalproex Sodium [Depakote] 250 mg PO BID 10/20/17 [History] Lisinopril [Zestril] 5 mg PO DAILY 10/20/17 [History] Propranolol [Inderal] 20 mg PO BID 10/20/17 [History] Lurasidone [Latuda] 120 mg PO DAILY 11/02/17 [History] Quetiapine Fumarate [Seroquel] 400 mg PO HS 11/02/17 [History] hydrOXYzine pamoate [HydrOXYzine Pamoate] 25 mg PO TID PRN 11/02/17 [History] Naltrexone HCl [Revia] 50 mg PO DAILY 11/03/17 [History] Rivaroxaban [Xarelto] 1 dose PO AD 30 Days pack 11/04/17 [Rx] 3 Allergy/AdvReac Type Severity Reaction Status Date / Time No Known Allergies Allergy Verified 06/01/17 14:51 All Systems PM: A 10-system review of systems was performed and is negative for pertinent findings except as documented above in the HPI. Review of systems: All the systems are reviewed everything is benign except the systems and symptoms I mentioned in the history of present illness - Constitutional General appearance: Present: cooperative, A&O X 3, no acute distress, answers questions appropriately - Head Head exam: Present: atraumatic, normal inspection - Neck Neck exam general surgery: Present: supple - Respiratory Respiratory exam: Present: decreased breath sounds, wheezes (mild). Absent: rales, respiratory distress, rhonchi - Cardiovascular Cardiovascular exam: Present: RRR, +S1, +S2. Absent: tachycardia - GI/Abdominal GI/Abdominal exam: Present: normal bowel sounds, soft. Absent: rebound, rigid, tenderness - Extremities Exam Extremities exam: Absent: calf tenderness, pedal edema, tenderness - Back Exam Back exam: Absent: CVA tenderness (L), CVA tenderness (R) - Neurological Exam Neurological exam: Present: alert, oriented X3 - Psychiatric Psychiatric exam: Present: normal affect, normal mood - Skin Skin exam: Absent: rash
[2017-11-12] MEDS: Aspirin Enteric Coated 81 MG Tablet PO SCH ×2 (00:19→09:46)
[2017-11-12 00:25] LABS: Basophils # 0.1 K/mcL (0.0-0.2); Basophils % 0.6 %; Eosinophils # 0.2 K/mcL (0.0-0.6); Eosinophils % 2.4 %; Hematocrit 41.7 % (37.5-50.1); Hemoglobin 14.4 g/dL (12.9-16.9); Immature Granulocytes % 0.6 % (0-4); Lymphocytes # 3.1 K/mcL (0.6-4.6); Lymphocytes % 37.5 %; Mean Corpuscular HGB Conc 34.5 g/dL (31.6-35.5); Mean Corpuscular Hemoglobin 30.6 pg (28.0-33.3); Mean Corpuscular Volume 88.7 fL (83.0-100.0); Mean Platelet Volume 10.2 fL (9.4-12.4); Monocytes # 0.7 K/mcL (0.0-1.3); Monocytes % 8.8 %; Neutrophils # 4.2 K/mcL (1.6-8.9); Platelet Count 316 K/mcL (140-400); Red Cell Distribution Width 12.3 % (11.5-14.5); Segmented Neutrophils % 50.1 %
[2017-11-12 00:51] LABS: BUN/Creatinine Ratio 13 (6-26); Blood Urea Nitrogen 12 mg/dL (6-20); Calcium 9.6 mg/dL (8.6-10.3); Carbon Dioxide 26 mEq/L (23-29); Chloride 104 mEq/L (98-107); Glucose 108 mg/dL (70-105); Osmolality,Calculated 286 (280-300); Potassium 4.2 mEq/L (3.5-5.1); Sodium 138 mEq/L (136-145); eGFR For African Americans > 60 (> 60); eGFR For Non-African Americans > 60 (> 60)
[2017-11-12 00:52] LABS: Chol/HDL Ratio 6.8 (0-4.9); Cholesterol 253 mg/dL (< 200); HDL Cholesterol 37 mg/dL (40-59); Triglycerides 559 mg/dL (< 150)
[2017-11-12] MEDS: Divalproex (12 HR) 250 MG TABLET PO SCH ×2 (09:46→20:51)
--- NOTE | 2017-11-12 09:58 | Electrocardiograph Report ---
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
--- NOTE | 2017-11-12 10:12 | Internal Med Progress Note ---
Date of Encounter: 11/12/17 Time of Encounter: 09:00 - Assessment and plan (1) Chest pain Current Visit: Yes Status: Resolved Assessment and plan: Was inpatient on psychiatric unit when he reported acute onset of chest pain. Was transferred to for further workup and treatment. Patient reported sharp , right-sided chest pain with radiation to right arm, shoulder, and head. EKG without acute ST changes, serial troponins negative. 10/22/17 TTE with EF 55-60% , no wall motion abnormalities. 12/2016 stress test with fixed inferior perfusion defect consistent with artifact. Denied chest pain on my exam. Of note the patient has been inpatient on the psychiatric unit and this is the second transfer to inpatient for complaints of chest pain. NPO midnight, stress test in the a.m. Qualifiers: Chest pain type: unspecified Qualified Code(s): R07.9 - Chest pain, unspecified (2) Hypoxia Current Visit: Yes Status: Resolved Assessment and plan: Oxygen saturations reportedly 85% on transfer to patient. CXR nonacute. Hypoxia resolved without intervention, possibly due to anxiety. Adequately oxygenating on room air. (3) HLD (hyperlipidemia) Current Visit: Yes Status: Acute Assessment and plan: Lipid panel shows triglycerides 559, cholesterol 253, LDL too numerous to count. Initiate statin. Recommend repeat lipid panel in 6-8 weeks with PCP Qualifiers: Hyperlipidemia type: pure hypercholesterolemia Qualified Code(s): E78.00 - Pure hypercholesterolemia, unspecified; E78.0 - Pure hypercholesterolemia (4) HTN (hypertension) Current Visit: Yes Status: Chronic Assessment and plan: Per hx. HTN. Continue BP medication. Monitor BP and titrate PRN Qualifiers: Hypertension type: essential hypertension Qualified Code(s): I10 - Essential (primary) hypertension (5) Pulmonary embolism Current Visit: Yes Status: Chronic Assessment and plan: Per hx. 11/02/17 CTA shows decrease in burden of pulmonary embolism within the right lower lobe and no new pulmonary embolism. Denies prevous PE. Reports fam hx of blood clots in aunt. Denies PCP. SW consult to find PCP/continuation of Xarelto. Would benefit from genetic work-up for possible blood dyscrasias. Continue Xarelto. Qualifiers: Pulmonary embolism type: other Chronicity: unspecified Acute cor pulmonale presence: without acute cor pulmonale Qualified Code(s): I26.99 - Other pulmonary embolism without acute cor pulmonale (6) Schizophrenia Current Visit: Yes Status: Chronic Assessment and plan: Hx of chronic schizophrenia. Pt. states he sees provider for psychiatric dx and is compliant w/his medications. Reports he was having auditory hallucinations on admission but denies current hallucinations. Continue pts. Depakote, hydroxyzine pamoate, Latuda, and Seroquel. Plan to discharge pt. to 1A when stable and cardiac testing completed. Qualifiers: Schizophrenia type: disorganized schizophrenia Qualified Code(s): F20.1 - Disorganized schizophrenia (7) Hx of mixed drug abuse Current Visit: Yes Status: Chronic Assessment and plan: Pr hx: Cocaine, marijuana, and meth use. Continue pts. Revia. Urine tox screen ordered. (8) DVT prophylaxis Current Visit: Yes Status: Acute Assessment and plan: Continue Xarelto. Monitor for signs of bleeding. - Time Spent With Patient less than 15 minutes - Subjective Interval history: Pt. new to me and information taken from chart review, discussion w/psychiatric unit, and pt. report. Pt. examined at [facility]. Pt. denies chest pain currently and states breathing has improved from admission. Still reports headache but states ordered pain medications helping to relieve. D/t pts. current uncontrolled HLD, discussed adding statin (Lipitor) to daily medications. Also discussed ordering nuclear pharm stress test d/t second report of CP during this admission. Previous was on 12/13/16. Will consider cardiology consult based on abnormal stress test results d/t pts. CC of CP, familial risk factors of mother and father's hx of MIs, and personal risk factors of HTN, HLD, and current tobacco abuse. Pt. continuing Xarelto for chronic PE that is resolving on CTA. - Constitutional Vitals: Temp Pulse Resp BP Pulse Ox 97.9 F 61 16 105/64 97 11/12/17 07:58 11/12/17 07:58 11/12/17 07:58 11/12/17 07:58 11/12/17 09:48 General appearance: Present: cooperative, A&O X 3, no acute distress, answers questions appropriately - Head Head exam: Present: atraumatic, normocephalic - Eye Eye exam: Present: PERRL, conjuntiva pink, sclera anicteric Pupils: Present: PERRL - ENT ENT exam: Present: normal exam - Neck Neck exam general surgery: Present: normal inspection, supple, trachea midline. Absent: lymphadenopathy - Respiratory Respiratory exam: Present: CTAB. Absent: accessory muscle use, rales, rhonchi, wheezes - Cardiovascular Cardiovascular exam: Present: RRR, +S1, +S2. Absent: diastolic murmur, gallop, rubs, systolic murmur - GI/Abdominal GI/Abdominal exam: Present: normal bowel sounds, soft, no peritoneal signs. Absent: distended, tenderness - Rectal Rectal exam: Present: deferred - Additional comments: exam deferred. - Extremities Exam Extremities exam: Present: warm, radial pulses palpable and symmetrical. Absent : calf tenderness, cyanotic, pedal edema - Back Exam Back exam: Present: normal inspection - Neurological Exam Neurological exam: Present: CN II-XII intact, oriented X3, no focal deficits. Absent: pronater drift, facial droop, speech deficit - Psychiatric Psychiatric exam: Present: normal affect, normal mood - Skin Skin exam: Present: dry, intact Internal Medicine: Result - Labs CBC & Chem 7: 11/12/17 00:16 11/12/17 00:16 Labs: Short CBC 11/12/17 Range/Units 00:16 WBC 8.3 (4.3-11.1) K/mcL Hgb 14.4 (12.9-16.9) g/dL Hct 41.7 (37.5-50.1) % Plt Count 316 (140-400) K/mcL Neutrophils # 4.2 (1.6-8.9) K/mcL BMP 11/12/17 00:16 Sodium 138 Potassium 4.2 Chloride 104 Carbon Dioxide 26 BUN 12 Creatinine 0.90 Glucose 108 H Calcium 9.6 Cardiac Enzymes 11/12/17 11/12/17 Range/Units 00:16 05:59 Troponin I < 0.03 < 0.03 (< 0.04) ng/mL - EKG Interpretation EKG shows normal: sinus rhythm - Prior EKG Data Prior EKG available for review: yes When compared to previous EKG: there is no significant change EKG comments: 11/12/17 10:15 EKG dated 11/11/17 shows sinus rhythm. EKG dated 11/12/17 shows sinus rhythm. - Impressions Impressions Chest X-Ray 11/11/17 23:51 IMPRESSION: No acute disease. D/ / Atif Lock MD / Atif Lock MD Interpreting Provider: Atif Lock MD
[2017-11-12] MEDS: *HR* Rivaroxaban 15 MG TABLET PO SCH ×2 (11:35→20:51)
[2017-11-12] MEDS: NALTREXONE HCL 50 MG TABLET PO SCH (11:35)
[2017-11-12 11:43] LABS: Amphetamine Screen,Urine Negative ng/mL (Cutoff=1000); Barbiturate Screen,Urine Negative ng/mL (Cutoff=200); Benzodiazepines Screen,Urine Negative ng/mL (Cutoff=200); Cannabinoid Screen,Urine Negative ng/mL (Cutoff = 50); Cocaine Screen,Urine Negative ng/mL (Cutoff= 300); Opiate Screen,Urine Positive ng/mL (Cutoff=300); Phencyclidine Screen,Urine Negative ng/mL (Cutoff=25)
[2017-11-12] MEDS ORDERED: Regadenoson 0.4 MG/5 ML SYRINGE IVP ONE (12:24)
[2017-11-12] MEDS ORDERED: *HR* Rivaroxaban 10 MG TABLET PO SCH (17:00)
[2017-11-12] MEDS ORDERED: NON-FORMULARY MEDICATION 1 EACH EACH (Quetiapine Fumarate [Seroquel] 400 MG) PO SCH (21:00)
[2017-11-13] MEDS ORDERED: Regadenoson 0.4 MG/5 ML SYRINGE IVP ONE (06:12)
[2017-11-13] MEDS: Divalproex (12 HR) 250 MG TABLET PO SCH (07:30)
[2017-11-13] MEDS: NALTREXONE HCL 50 MG TABLET PO SCH (07:30)
[2017-11-13] MEDS: *HR* Rivaroxaban 15 MG TABLET PO SCH (07:30)
[2017-11-13] MEDS: Aspirin Enteric Coated 81 MG Tablet PO SCH (07:30)
[2017-11-13 07:56] VITALS: BP 118/76
--- NOTE | 2017-11-13 16:05 | Discharge Summary ---
Date of Encounter: 11/13/17 Time of Encounter: 16:12 - Discharge Diagnosis (1) Chest pain Priority: Primary Status: Resolved Comments: Was inpatient on psychiatric unit when he reported acute onset of chest pain. A rapid response was called and he was transferred to for further workup and treatment. Patient reported sharp, right-sided chest pain with radiation to right arm, shoulder, and head. EKG without acute ST changes, serial troponins negative. 10/22/17 TTE with EF 55-60%, no wall motion abnormalities. 11/2017 stress test negative for infarct or ischemia. Chest pain possibly secondary to stress/anxiety. No further cardiac testing indicated. Qualifiers: Chest pain type: unspecified Qualified Code(s): R07.9 - Chest pain, unspecified (2) Pulmonary embolism Priority: Primary Status: Chronic Comments: r hx. 11/02/17 CTA shows decrease in burden of pulmonary embolism within the right lower lobe and no new pulmonary embolism. Denies previous PE. Reports fam hx of blood clots in aunt. Denies PCP. He is at risk for failure for outpatient follow-up as he has no PCP. Discharging back to inpatient psych on Xarelto 15 mg twice a day; this needs to be continued through 11/22 then dose should be changed to 20 mg daily. We will touch base with social media content specialist on 11/15 to coordinate care with PCP and Xarelto affordability. Information relayed to inpatient psychiatric unit as well. Continue Xarelto. Qualifiers: Pulmonary embolism type: other Chronicity: unspecified Acute cor pulmonale presence: without acute cor pulmonale Qualified Code(s): I26.99 - Other pulmonary embolism without acute cor pulmonale (3) HTN (hypertension) Priority: Primary Status: Chronic Comments: Per hx. Continue BP medication. Qualifiers: Hypertension type: essential hypertension Qualified Code(s): I10 - Essential (primary) hypertension (4) Schizophrenia Priority: Primary Status: Chronic Comments: Hx of chronic schizophrenia. Pt. states he sees provider for psychiatric dx and is compliant w/his medications. Reports he was having auditory hallucinations on admission but denies current hallucinations. Continue pts. Depakote, hydroxyzine pamoate, Latuda, and Seroquel. Qualifiers: Schizophrenia type: disorganized schizophrenia Qualified Code(s): F20.1 - Disorganized schizophrenia - Discharge Medications Home Medications: Divalproex Sodium [Depakote] 250 mg PO BID 10/20/17 [History] Lisinopril [Zestril] 5 mg PO DAILY 10/20/17 [History] Propranolol [Inderal] 20 mg PO BID 10/20/17 [History] Lurasidone [Latuda] 120 mg PO DAILY 11/02/17 [History] Quetiapine Fumarate [Seroquel] 400 mg PO HS 11/02/17 [History] hydrOXYzine pamoate [HydrOXYzine Pamoate] 25 mg PO TID PRN 11/02/17 [History] Naltrexone HCl [Revia] 50 mg PO DAILY 11/03/17 [History] Rivaroxaban [Xarelto] 15 mg PO BID #30 11/13/17 [Rx] Allergies/Adverse Reactions: 3 Allergy/AdvReac Type Severity Reaction Status Date / Time No Known Allergies Allergy Verified 06/01/17 14:51 Procedures/tests Complete & Pending: Procedures Performed prior 72 hours Category Date Time Status NM dionne perf SPECT multi [NM] Routine Exams 11/12/17 09:31 Taken ECG 12 lead ECG [ECG] Stat Y 11/11/17 23:47 Completed SP pharm nuclear stress Routine Y 11/13/17 10:00 Completed Date of admission: 11/11/17 23:43 Primary care physician: PCP NONE Consults: 11/12/17 09:32 Consult to Operations Support Specialist [CONS] Routine Reason for SW Consult: Patient reports he currently has no PCP and has several issues that he needs to be followed for: recurrent CP, uncontrolled HLD, hx of drug abuse, and newly placed on Xarelto for chronic PE. Please assess patient for possible home needs for post-discharge planning. Discharging clinician: Debra Shay Anticipated date of discharge: 11/13/17 - Patient Status Disposition: Transfer Psychiatric Hosp Condition: Good Functional capacity at discharge: independent ambulation Overall status at discharge: patient is back to baseline - Discharge Instructions Follow Up With: NONE,PCP [Primary Care Provider] - - Diet and Activity Activity: increase activity as tolerated Diet: advance to your usual diet Interval History: Seen and examined at bedside. Patient is new to me. Information obtained from chart review and patient report. Patient says he feels better and would like to discharge back to inpatient psychiatric unit if possible. Discussed obtaining a inpatient echocardiogram and patient says he will follow up outpatient. As he is getting anxious to sitting in the room and needs to walk around, feels like he is cooped up is getting restless. No chest pain, no shortness of breath. Hospital course: See assessment and plan for hospital course. - Time Spent with Patient Total time spent providing and/or coordinating discharge services: - Constitutional Vitals: Temp Pulse Resp BP Pulse Ox 97.4 F L 83 16 118/76 95 11/13/17 07:55 11/13/17 07:55 11/13/17 07:55 11/13/17 07:55 11/13/17 07:55 General appearance: Present: cooperative, A&O X 3, no acute distress, answers questions appropriately - Head Head exam: Present: atraumatic, normocephalic - Eye Eye exam: Present: PERRL, conjuntiva pink, sclera anicteric Pupils: Present: PERRL - Expanded ENT Exam Teeth exam: Present: dental caries - Neck Neck exam general surgery: Present: supple, trachea midline. Absent: lymphadenopathy - Respiratory Respiratory exam: Present: CTAB. Absent: accessory muscle use, rales, rhonchi, wheezes - Cardiovascular Cardiovascular exam: Present: RRR, +S1, +S2. Absent: diastolic murmur, gallop, rubs, systolic murmur - GI/Abdominal GI/Abdominal exam: Present: normal bowel sounds, soft, no peritoneal signs. Absent: distended, tenderness - Extremities Exam Extremities exam: Present: warm, radial pulses palpable and symmetrical. Absent : calf tenderness, cyanotic, pedal edema - Neurological Exam Neurological exam: Present: CN II-XII intact, oriented X3, no focal deficits. Absent: pronater drift, facial droop, speech deficit - Skin Skin exam: Present: dry, intact
== END 2017-11-13 20:31 ==
LOC: 3BNU
PROVIDERS: ADMIT Internal Medicine Hematology & Oncology; ATTEND Internal Medicine Hematology & Oncology

== ENCOUNTER 2017-11-13 20:44 | Inpatient (IN) ==
[2017-11-13] MEDS ORDERED: Haloperidol Lactate 5 MG/ML VIAL IM PRN (20:54)
[2017-11-13] MEDS ORDERED: *HR* LORazepam 2 MG/ML VIAL IM PRN (20:54)
[2017-11-13] MEDS ORDERED: Mag Hydrox/Al Hydrox/Simeth 30 ML UDC PO PRN (20:54)
[2017-11-13] MEDS ORDERED: *HR* LORazepam 1 MG TABLET PO PRN (20:54)
[2017-11-13] MEDS ORDERED: MOM Conc 10 ML UD.LIQ PO PRN (20:54)
[2017-11-13] MEDS: *HR* Rivaroxaban 15 MG TABLET PO SCH (21:23)
[2017-11-13] MEDS: Acetaminophen 325 MG TABLET PO PRN (21:23)
[2017-11-13] MEDS: traZODone 50 MG TABLET PO PRN (21:23)
[2017-11-13] MEDS: Divalproex (12 HR) 250 MG TABLET PO SCH (21:24)
[2017-11-14] MEDS: *HR* Rivaroxaban 15 MG TABLET PO SCH ×2 (08:33→20:32)
[2017-11-14] MEDS: NALTREXONE HCL 50 MG TABLET PO SCH (08:34)
[2017-11-14] MEDS: Divalproex (12 HR) 250 MG TABLET PO SCH ×2 (08:34→20:33)
[2017-11-14] MEDS: Acetaminophen 325 MG TABLET PO PRN ×2 (12:34→18:57)
--- NOTE | 2017-11-14 14:15 | Psychiatry History & Physical ---
Date of Encounter: 11/14/17 Time of Encounter: 14:11 History of Present Illness Medicare Admission Attestation: For traditional Medicare patients the provided hospital inpatient services are reasonable and necessary and in the case of services not specified as inpatient -only under 42 CFR 419.22 (n), that they are appropriately provided as inpatient services in accordance 42 CFR 412.3. For Critical Access Hospital the patient may reasonably be expected to be discharged or transferred to a hospital within 96 hours after admission to the Critical Access Hospital. History of Present Illness: Mr. Miller is a 37 year old male with a long standing h/o Schizophrenia and medication noncompliance, h/o multiple inpatient hospitalizations transferred to medicine from the unit on account of acute onset of chest pain. Patient was transferred back to the unit after he was medically stabilized. Patient is at present psychiatrically stable and awaiting [facility]. EKG was without acute ST changes, serial troponins negative.His chest pain was diagnosed to be possibly secondary to stress/anxiety. Patient is compliant with his medications and denied any noted side effects. He is sleeping and eating well. On review of symptoms, patient denied depressive/ anxiety and psychotic symptoms including AH/VH/SI/HI. Past Med Surg Social Fam HX - Past Medical History Medical history: hyperlipidemia, hypertension, pulmonary embolus - Past Psychiatric History Psychiatric history: Reports: schizophrenia - Past Surgical History Surgical History: appendectomy, arthroscopy - Social History Smoking Status: Current every day smoker Smokeless Tobacco Status: Yes Alcohol use: occasionally Drug use: cocaine, marijuana, methamphetamine - Family History Father Adopted: No Family Member Ethnicity: Non- Living Status: Still Living Hx Family Cardiac Disorders: Yes Hx Family Respiratory Disorders: No Hx Family Cancer: Yes Hx Family GI Disorders: No Hx Family Endocrine Disorder: Yes Hx Family Neuromuscular Disorders: No Hx Family Neurologic Disorders: No Hx Family HEENT Disorders: No Hx Family Autoimmune Disorders: No Medications & Allergies Divalproex Sodium [Depakote] 250 mg PO BID 10/20/17 [History] Lisinopril [Zestril] 5 mg PO DAILY 10/20/17 [History] Propranolol [Inderal] 20 mg PO BID 10/20/17 [History] Lurasidone [Latuda] 120 mg PO DAILY 11/02/17 [History] Quetiapine Fumarate [Seroquel] 400 mg PO HS 11/02/17 [History] hydrOXYzine pamoate [HydrOXYzine Pamoate] 25 mg PO TID PRN 11/02/17 [History] Naltrexone HCl [Revia] 50 mg PO DAILY 11/03/17 [History] Rivaroxaban [Xarelto] 15 mg PO BID #30 11/13/17 [Rx] 3 Allergy/AdvReac Type Severity Reaction Status Date / Time No Known Allergies Allergy Verified 06/01/17 14:51 Mental Status Exam Patient orientation: Yes Person Level of alertness: Alert Patient appearance: Appropriate, Malodorous Behavior: calm, cooperative Psychomotor activity: Normal Eye contact: Maintains Eye Contact Mood description: Euthymic/stable Affect description: congruent with mood Speech pattern: Normal rate Speech volume: Normal Thought process: Logical, Goal Oriented Thought content: Yes Intact Attention span: Capable of Focused Attention Judgment: Fair Insight: Partial Results - Vital Signs Vital signs: Temp Pulse Resp BP 97.4 F L 83 16 112/86 11/14/17 08:40 11/14/17 08:40 11/14/17 08:40 11/14/17 08:40
[2017-11-14] MEDS: hydrOXYzine pamoate 25 MG CAPSULE PO PRN (18:11)
[2017-11-14] MEDS: Nicotine 2 MG GUM BC PRN (18:12)
[2017-11-15] MEDS: Divalproex (12 HR) 250 MG TABLET PO SCH ×2 (08:55→20:41)
[2017-11-15] MEDS: *HR* Rivaroxaban 15 MG TABLET PO SCH ×2 (08:55→20:41)
[2017-11-15] MEDS: NALTREXONE HCL 50 MG TABLET PO SCH (08:55)
--- NOTE | 2017-11-15 15:42 | Psychiatry Progress Note ---
Date of Encounter: 11/15/17 Time of Encounter: 15:30 Subjective Interval history: The patient has been on the unit. He requires anticoagulation. He is awaiting placement in an ECF. He has smoked cigarretted. I told him to quit smoking. He agreed to stop smoking. Review of Systems Respiratory: Reports: cough Objective: Exam Patient orientation: Yes Person, Yes Time, Yes Place Level of alertness: Sedated Patient appearance: Unkempt, Disheveled Behavior: calm Psychomotor activity: Slowed Eye contact: Minimal Contact Mood description: Depressed Affect description: blunted Speech pattern: Impoverished Speech volume: Normal Thought process: [place] Thought content: Yes Suicidal ideation Perceptual disturbances: Yes Reacting to internal stimuli Judgment: Poor Insight: Minimal Results - Vital Signs Vital Signs: Temp Pulse Resp BP 98.2 F 98 18 109/78 11/15/17 10:58 11/15/17 10:58 11/15/17 10:58 11/15/17 10:58 Assessment and Plan (1) Schizophrenia Current visit: No Status: Chronic Plan: Continue hospitalization, Close observation Risks, benefits, side effects, alternatives discussed w/pt: Yes Patient agreeable to treatment: Yes Qualifiers: Schizophrenia type: disorganized schizophrenia Qualified Code(s): F20.1 - Disorganized schizophrenia (2) Tobacco use Current visit: Yes Status: Chronic Plan: Monitor appetite Additional Plan: advise absteince Risks, benefits, side effects, alternatives discussed w/pt: Yes Patient agreeable to treatment: Yes Consult Discharge Plan - Plan Referrals: NONE,PCP [Primary Care Provider] -
[2017-11-15] MEDS: hydrOXYzine pamoate 25 MG CAPSULE PO PRN ×2 (16:34→20:41)
[2017-11-15] MEDS: Acetaminophen 325 MG TABLET PO PRN (16:34)
[2017-11-15] MEDS: Nicotine 2 MG GUM BC PRN (16:34)
[2017-11-15] MEDS: traZODone 50 MG TABLET PO PRN (20:41)
[2017-11-16] MEDS: NALTREXONE HCL 50 MG TABLET PO SCH (08:30)
[2017-11-16] MEDS: Divalproex (12 HR) 250 MG TABLET PO SCH ×2 (08:30→21:35)
[2017-11-16] MEDS: *HR* Rivaroxaban 15 MG TABLET PO SCH ×2 (08:30→21:36)
--- NOTE | 2017-11-16 09:02 | Psychiatry Progress Note ---
Date of Encounter: 11/16/17 Time of Encounter: 09:00 Subjective Interval history: The patient has improved in terms of psychosis. He is laughing and joking. He slept a 0.5 hours. The patient is accepting of placement in a [facility]. Currently this is being discussed with stephanie. Effort will be made for the patient have a payee bowling once to handle his own funds this has been of concern. The patient is sleeping well with trazodone. Today he reports he is free of psychosis such as hearing noises bleedings are not true and has been moved he denies suicidal ideation Objective: Exam Patient orientation: Yes Person, Yes Time, Yes Place Level of alertness: Sedated, Follows commands Patient appearance: Unkempt, Disheveled Behavior: calm, cooperative Psychomotor activity: Slowed Eye contact: Minimal Contact Mood description: Euthymic/stable Affect description: blunted Speech pattern: Normal rate, Slowed Speech volume: Soft/Quiet Thought process: Logical, [place] Thought content: Yes Intact Judgment: Poor Insight: Minimal Results - Vital Signs Vital Signs: Temp Pulse Resp BP 97.8 F 81 16 112/78 11/15/17 20:46 11/15/17 20:46 11/15/17 20:46 11/15/17 20:46 Assessment and Plan (1) Schizophrenia Current visit: No Status: Chronic Plan: Continue hospitalization, Close observation, Encourage participation in unit milieu, Monitor sleep, Monitor appetite Risks, benefits, side effects, alternatives discussed w/pt: Yes Patient agreeable to treatment: Yes Qualifiers: Schizophrenia type: disorganized schizophrenia Qualified Code(s): F20.1 - Disorganized schizophrenia (2) Tobacco use Current visit: Yes Status: Chronic Plan: Continue hospitalization, Close observation Additional Plan: Encouraged the patient to stop smoking as it is a risk factor for DVT. He agreed and verbalized understanding Risks, benefits, side effects, alternatives discussed w/pt: Yes Patient agreeable to treatment: Yes Consult Discharge Plan - Plan Referrals: NONE,PCP [Primary Care Provider] -
[2017-11-16] MEDS: hydrOXYzine pamoate 25 MG CAPSULE PO PRN (12:03)
[2017-11-16] MEDS: Acetaminophen 325 MG TABLET PO PRN (16:05)
[2017-11-16] MEDS: Nicotine 2 MG GUM BC PRN (18:39)
[2017-11-16] MEDS: traZODone 50 MG TABLET PO PRN (21:35)
[2017-11-17] MEDS: NALTREXONE HCL 50 MG TABLET PO SCH (09:22)
[2017-11-17] MEDS: *HR* Rivaroxaban 15 MG TABLET PO SCH ×2 (09:22→20:23)
[2017-11-17] MEDS: Divalproex (12 HR) 250 MG TABLET PO SCH ×2 (09:22→20:22)
--- NOTE | 2017-11-17 11:51 | Psychiatry Progress Note ---
Date of Encounter: 11/17/17 Time of Encounter: 11:10 Subjective Interval history: Patient was seen in his room. The patient reported that he was sleeping. However, he was alert and conversant. The patient reports that he gets a check and gives it to his father to pay bills. When asked if he has any money left over he says he uses it on cigarettes Patient says he will give up smoking. He denied hearing voices or paranoia. He reported no side effects to his medicines Objective: Exam Patient orientation: Yes Person, Yes Time, Yes Place, Yes Circumstance Level of alertness: Alert Patient appearance: Unkempt, Malodorous Behavior: calm Psychomotor activity: Slowed Eye contact: Minimal Contact Mood description: Euthymic/stable Affect description: blunted Speech pattern: Normal rhythm, Slowed Speech volume: Normal Thought process: [place] Thought content: Yes Poverty of Content Judgment: Poor Insight: Minimal Results - Vital Signs Vital Signs: Temp Pulse Resp BP 97.5 F L 116 16 96/65 11/17/17 09:00 11/17/17 09:00 11/17/17 09:00 11/17/17 09:00 Assessment and Plan (1) Schizophrenia Current visit: No Status: Chronic Plan: Continue hospitalization, Close observation, Suicide Precautions per unit protocol, Encourage participation in unit milieu Risks, benefits, side effects , alternatives discussed w/pt: Yes Patient agreeable to treatment: Yes Qualifiers: Schizophrenia type: disorganized schizophrenia Qualified Code(s): F20.1 - Disorganized schizophrenia (2) Tobacco use Current visit: Yes Status: Chronic Plan: Continue hospitalization, Encourage participation in unit milieu Risks, benefits, side effects, alternatives discussed w/pt: Yes Patient agreeable to treatment: Yes Consult Discharge Plan - Plan Referrals: NONE,PCP [Primary Care Provider] -
[2017-11-17] MEDS: Acetaminophen 325 MG TABLET PO PRN ×2 (13:36→20:26)
[2017-11-17] MEDS: hydrOXYzine pamoate 25 MG CAPSULE PO PRN (13:36)
[2017-11-17] MEDS: traZODone 50 MG TABLET PO PRN (20:23)
[2017-11-18] MEDS: *HR* Rivaroxaban 15 MG TABLET PO SCH (08:59)
[2017-11-18] MEDS: Divalproex (12 HR) 250 MG TABLET PO SCH (09:00)
[2017-11-18] MEDS: NALTREXONE HCL 50 MG TABLET PO SCH (09:00)
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
[2017-11-18 09:46] VITALS: BP 114/82
--- NOTE | 2017-11-18 09:50 | Physician Discharge Referral ---
ExtendedCare Referral Info Transfer To: [facility] Provider in Charge: Martin Bailon MD Provider in Charge after Transfer: Other (F physician) Institutional Level of Care: Intermediate - Diagnosis (1) Schizophrenia Priority: Primary Status: Chronic (2) Tobacco use Status: Chronic (3) Pulmonary embolism Priority: Secondary Status: Chronic (4) HTN (hypertension) Priority: Secondary Status: Chronic Expected Duration of Placement: > 30 days Prognosis: Poor Aware of Diagnosis: Patient, Family Aware of Prognosis: Patient, Family - Transfer Medications Prescriptions: Divalproex (12 HR) [Depakote (12 HR)] 250 mg PO BID 30 Days #60 tablet. hydrOXYzine pamoate [HydrOXYzine Pamoate] 25 mg PO TID PRN 30 Days #30 capsule PRN Reason: Anxiety hydrOXYzine pamoate [HydrOXYzine Pamoate] 25 mg PO TID PRN 30 Days #90 capsule PRN Reason: Anxiety Lisinopril [Zestril] 5 mg PO DAILY 30 Days #30 tablet Lurasidone [Latuda] 120 mg PO DAILY 30 Days #30 tablet Lurasidone [Latuda] 120 mg PO DAILY 30 Days #30 tablet Naltrexone HCl 50 mg PO DAILY 30 Days #30 tablet Propranolol [Inderal] 20 mg PO BID 60 Days #30 tablet Quetiapine Fumarate [Seroquel] 400 mg PO HS 30 Days #30 tablet Rivaroxaban [Xarelto] 15 mg PO BID 30 Days #60 tablet Rivaroxaban [Xarelto] 15 mg PO BID 60 Days #30 tablet traZODone [TraZODone] 50 mg PO HS PRN 30 Days #30 tablet PRN Reason: Insomnia Home Medications: Divalproex Sodium [Depakote] 250 mg PO BID 10/20/17 [History] Divalproex (12 HR) [Depakote (12 HR)] 250 mg PO BID 30 Days #60 tablet. [Rx] Lisinopril [Zestril] 5 mg PO DAILY 30 Days #30 tablet 11/18/17 [Rx] Lurasidone [Latuda] 120 mg PO DAILY 30 Days #30 tablet 11/18/17 [Rx] Lurasidone [Latuda] 120 mg PO DAILY 30 Days #30 tablet 11/18/17 [Rx] Naltrexone HCl 50 mg PO DAILY 30 Days #30 tablet 11/18/17 [Rx] Propranolol [Inderal] 20 mg PO BID 60 Days #30 tablet 11/18/17 [Rx] Quetiapine Fumarate [Seroquel] 400 mg PO HS 30 Days #30 tablet 11/18/17 [Rx] Rivaroxaban [Xarelto] 15 mg PO BID 30 Days #60 tablet 11/18/17 [Rx] Rivaroxaban [Xarelto] 15 mg PO BID 60 Days #30 tablet 11/18/17 [Rx] hydrOXYzine pamoate [HydrOXYzine Pamoate] 25 mg PO TID PRN 30 Days #30 capsule 11/18/17 [Rx] hydrOXYzine pamoate [HydrOXYzine Pamoate] 25 mg PO TID PRN 30 Days #90 capsule 11/18/17 [Rx] traZODone [TraZODone] 50 mg PO HS PRN 30 Days #30 tablet 11/18/17 [Rx] Allergies/Adverse Reactions: 3 Allergy/AdvReac Type Severity Reaction Status Date / Time No Known Allergies Allergy Verified 06/01/17 14:51 - Respiratory Orders None Smoking Cessation: Smoking cessation has been advised. For more information, call the [place] Tobacco Quit Line at 6-993-KLXS-NOW. - Ancillary Orders May consult with Dentist, Plant Etiologist, Pyroglazer PRN - Advance Directives Living Will: No Power of Scrub Wheel Operator: No Code Status: Full Code - History and Physical History/Physical reviewed & approved w/add comments: Yes - Mobility Orders Ambulate - Diet Orders Regular CERTIFICATION: I certify that the transfer of the above named patient to an Extended Care Facility is necessary for the continuing treatment of the diagnosis listed. The above information is true and accurate reflection of patient's current condition. Confidential - Redisclosure prohibited without a patient's written consent.
[2017-11-18] MEDS: Acetaminophen 325 MG TABLET PO PRN (12:00)
[2017-11-18] MEDS: hydrOXYzine pamoate 25 MG CAPSULE PO PRN (12:01)
== END 2017-11-18 16:45 | DRG 750 ==
LOC: 1ANU 20:44 → SUATTDRO 20:44
PROVIDERS: ADMIT Psychiatry & Neurology Psychiatry; ATTEND Psychiatry & Neurology Forensic Psychiatry

== ENCOUNTER 2017-12-02 10:46 | Inpatient (IN) ==
[2017-12-02 11:10] LABS: Basophils % 0.4 %; Eosinophils % 0.4 %; Hematocrit 39.7 % (37.5-50.1); Hemoglobin 13.7 g/dL (12.9-16.9); Immature Granulocytes % 0.3 % (0-4); Lymphocytes # 1.4 K/mcL (0.6-4.6); Lymphocytes % 15.3 %; Mean Corpuscular HGB Conc 34.5 g/dL (31.6-35.5); Mean Corpuscular Hemoglobin 30.5 pg (28.0-33.3); Mean Corpuscular Volume 88.4 fL (83.0-100.0); Mean Platelet Volume 10.2 fL (9.4-12.4); Monocytes # 0.8 K/mcL (0.0-1.3); Monocytes % 9.1 %; Neutrophils # 6.8 K/mcL (1.6-8.9); Platelet Count 313 K/mcL (140-400); Red Blood Count 4.49 M/mcL (4.19-5.50); Red Cell Distribution Width 12.5 % (11.5-14.5); Segmented Neutrophils % 74.5 %
[2017-12-02] MEDS ORDERED: 0.9 % Sodium Chloride 1,000 ML IVC ONE (11:13)
[2017-12-02 11:15] LABS: Bilirubin,Urine Negative (Negative); Blood,Urine Negative (Negative); Clarity,Urine Clear (Clear); Color,Urine Yellow (Yellow); Glucose,Urine (UA) Normal (Normal); Ketones,Urine Negative (Negative); Leukocyte Esterase,Urine Moderate (Negative); Nitrite,Urine Negative (Negative); PH,Urine 6.5 pH Units (5.0-8.0); Protein,Urine Negative (Neg-Trace); Specific Gravity,Urine 1.006 (1.010-1.025); Urobilinogen,Urine Normal (Normal)
[2017-12-02 11:17] LABS: Bacteria,Urine None Seen per hpf (None-Few); Hyaline Casts,Urine None Seen per lpf (None-Few); RBC,Urine 0-3 per hpf (0-3); Squamous Epithelial Cell,Urine Moderate per lpf (None-Few)
[2017-12-02 11:22] LABS: Amphetamine Screen,Urine Negative ng/mL (Cutoff=1000); Barbiturate Screen,Urine Negative ng/mL (Cutoff=200); Benzodiazepines Screen,Urine Negative ng/mL (Cutoff=200); Cannabinoid Screen,Urine Negative ng/mL (Cutoff = 50); Cocaine Screen,Urine Negative ng/mL (Cutoff= 300); Opiate Screen,Urine Negative ng/mL (Cutoff=300); Phencyclidine Screen,Urine Negative ng/mL (Cutoff=25)
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
[2017-12-02] MEDS ORDERED: Pantoprazole 40 MG VIAL IVP ONE (11:23)
[2017-12-02 11:27] LABS: VBG HCO3 24 mEq/L (21-27); VBG PCO2 38 mmHg (41-51); VBG PH 7.41 pH Units (7.32-7.42); VBG PO2 90 mmHg (25-50)
[2017-12-02 11:33] LABS: BUN/Creatinine Ratio 7 (6-26); Blood Urea Nitrogen 6 mg/dL (6-20); Calcium 9.6 mg/dL (8.6-10.3); Carbon Dioxide 25 mEq/L (23-29); Chloride 104 mEq/L (98-107); Glucose 137 mg/dL (70-105); Osmolality,Calculated 282 (280-300); Potassium 3.6 mEq/L (3.5-5.1); Sodium 136 mEq/L (136-145); eGFR For African Americans > 60 (> 60); eGFR For Non-African Americans > 60 (> 60)
[2017-12-02 11:49] LABS: Salicylate 6.4 mg/dL (15.0-30.0)
[2017-12-02 11:53] LABS: Acetaminophen < 1.0 mcg/mL (10-30); Ethanol < 10 mg/dL (0-10)
[2017-12-02 12:08] LABS: Valproate < 2 mcg/mL (50-100)
[2017-12-02] MEDS ORDERED: Ibuprofen 600 MG TABLET PO ONE (18:41)
[2017-12-02] MEDS ORDERED: hydrOXYzine pamoate 25 MG CAPSULE PO ONE (18:42)
--- NOTE | 2017-12-02 18:45 | Electrocardiograph Report ---
[place] [employer] [facility] Test Date: 2017-12-02 Pat Name: Gabbi Miller Department: 104 Room: Gender: M [employer]: NEVAEH : 1980 Requested By: Inocencia See Order Number: [id number] Reading MD: Kary Humphrey DO Measurements Intervals [place] Rate: 87 P: -8 MO: 122 QRS: 6 QRSD: 101 T: 6 QT: 372 QTc: 416 Interpretive Statements SINUS RHYTHM Electronically Signed On 12-02-2017 18:44:25 EST by Kary Humphrey DO
[2017-12-02] MEDS ORDERED: MOM Conc 10 ML UD.LIQ PO PRN (22:22)
[2017-12-02] MEDS ORDERED: Haloperidol Lactate 5 MG/ML VIAL IM PRN (22:22)
[2017-12-02] MEDS ORDERED: *HR* LORazepam 1 MG TABLET PO PRN (22:22)
[2017-12-02] MEDS ORDERED: *HR* LORazepam 2 MG/ML VIAL IM PRN (22:22)
[2017-12-02] MEDS: Acetaminophen 325 MG TABLET PO PRN (23:27)
[2017-12-02] MEDS: traZODone 50 MG TABLET PO PRN (23:28)
[2017-12-02] MEDS: Divalproex (12 HR) 250 MG TABLET PO SCH (23:28)
[2017-12-02] MEDS: hydrOXYzine pamoate 25 MG CAPSULE PO PRN (23:29)
[2017-12-02] MEDS: NALTREXONE HCL 50 MG TABLET PO SCH (23:36)
[2017-12-03] MEDS: *HR* Rivaroxaban 10 MG TABLET PO SCH (08:47)
[2017-12-03] MEDS: Divalproex (12 HR) 250 MG TABLET PO SCH ×2 (08:48→20:52)
[2017-12-03] MEDS: NALTREXONE HCL 50 MG TABLET PO SCH (08:48)
[2017-12-03] MEDS ORDERED: OLANZapine 10 MG TAB.RAPDIS PO ONE (09:59)
[2017-12-03] MEDS ORDERED: *HR* LORazepam 1 MG TABLET PO ONE (10:00)
--- NOTE | 2017-12-03 10:33 | Psychiatry History & Physical ---
Date of Encounter: 12/03/17 Time of Encounter: 12:00 History of Present Illness Patient Stated Chief Complaint: "I hear voices." Medicare Admission Attestation: For traditional Medicare patients the provided hospital inpatient services are reasonable and necessary and in the case of services not specified as inpatient -only under 42 CFR 419.22 (n), that they are appropriately provided as inpatient services in accordance 42 CFR 412.3. For Critical Access Hospital the patient may reasonably be expected to be discharged or transferred to a hospital within 96 hours after admission to the Critical Access Hospital. Admitted From: Emergency Dept Plans for Post Hospital Care: Home History of Present Illness: Mr. Miller is a 37 year old male with long-standing schizophrenia and substance abuse issues recently complicated with pulmonary embolus who presents to the hospital after absconding from the detention who was monitoring him post his previous hospitalization today for psychiatric stabilization. Patient has a history of noncompliance with medicine as well as substance abuse which exacerbates his mental illness. He presented to the hospital with worsening auditory and visual hallucinations. Patient states that he is seeing faces and hearing voices. He left the detention because "my dad needed money." Attempts to help this patient obtain guardianship have thus far not been fruitful. Patient is agreeable to returning to his current dosages of medications because when he takes that they do help him. He denies suicidal or homicidal ideation, intent, or plan. He is disheveled and malodorous laying in bed. When walking around the unit he can be observed clearly agitated and responding to internal stimuli. Past Med Surg Social Fam HX - Past Medical History Medical history: hyperlipidemia, hypertension, pulmonary embolus - Past Psychiatric History Psychiatric history: Reports: schizophrenia, previous psychiatric hospitalization Past psychiatric history details: Multiple previous hospitalizations. Family psychiatric history: Yes Family Psychiatric History Details: Father has depression Family History of Suicide: None - Past Surgical History Surgical History: appendectomy, arthroscopy - Social History Smoking Status: Current every day smoker Smokeless Tobacco Status: Yes Alcohol use: occasionally Drug use: cocaine, marijuana, methamphetamine - Family History Father Adopted: No Family Member Ethnicity: Non- Living Status: Still Living Hx Family Cardiac Disorders: No Hx Family Respiratory Disorders: No Hx Family Cancer: No Hx Family GI Disorders: No Hx Family Genitourinary Disorders: No Hx Family Endocrine Disorder: No Hx Family Musculoskeletal Disorders: No Hx Family Neuromuscular Disorders: No Hx Family Neurologic Disorders: No Hx Family HEENT Disorders: No Hx Family Autoimmune Disorders: No Hx Family Reproductive Disorders: No Hx Family Psychosocial Disorders: No Hx Family Medical Disorders: No Medications & Allergies Divalproex (12 HR) [Depakote (12 HR)] 250 mg PO BID 30 Days #60 tablet. [Rx] Lisinopril [Zestril] 5 mg PO DAILY 30 Days #30 tablet 11/18/17 [Rx] Lurasidone [Latuda] 120 mg PO DAILY 30 Days #30 tablet 11/18/17 [Rx] Naltrexone HCl 50 mg PO DAILY 30 Days #30 tablet 11/18/17 [Rx] Propranolol [Inderal] 20 mg PO BID 60 Days #30 tablet 11/18/17 [Rx] Quetiapine Fumarate [Seroquel] 400 mg PO HS 30 Days #30 tablet 11/18/17 [Rx] Rivaroxaban [Xarelto] 15 mg PO BID 60 Days #30 tablet 11/18/17 [Rx] traZODone [TraZODone] 50 mg PO HS PRN 30 Days #30 tablet 11/18/17 [Rx] Benztropine [Cogentin] 1 mg PO BID 12/02/17 [History] HydrOXYzine Pamoate 25 mg PO TID PRN 12/02/17 [History] 3 Allergy/AdvReac Type Severity Reaction Status Date / Time No Known Allergies Allergy Verified 06/01/17 14:51 Review of Systems ROS limited: due to patient condition (Due to the patient's schizophrenia) Psychiatric: Reports: anxiety, abnormal sleep pattern, auditory hallucinations, visual hallucinations, confusion, memory loss. Denies: suicidal ideation Mental Status Exam Patient orientation: Yes Person, Yes Time, Yes Place Level of alertness: Alert Patient appearance: Unkempt, Disheveled, Malodorous Additional observations: Patient's gait is somewhat shuffling. Behavior: cooperative Psychomotor activity: Normal Eye contact: Diverts Contact Mood description: Depressed Affect description: blunted Speech pattern: Rambling, Mumbled Speech volume: Soft/Quiet Thought process: [place], Slowed Thinking Thought content: No Suicidal ideation, No Homicidal ideation Perceptual disturbances: Yes Reacting to internal stimuli, Yes Auditory hallucinations, Yes Visual hallucinations Attention span: Capable of Focused Attention Memory description: Grossly Intact Patient reliability: Questionable Historian Intelligence estimate: Below Average Judgment: Poor Insight: Minimal Exam - HEENT Head exam IM: Present: atraumatic Eye exam IM: Present: EOMI, normal appearance ENT exam IM: Present: mucous membranes moist - Neurological Neurological exam IM: Present: CN II-XII intact - Respiratory Respiratory exam IM: Present: CTAB - GI/Abdominal GI/Abdominal exam IM: Present: normal bowel sounds, soft - Extremities Extremities exam IM: Present: full ROM - Skin Skin exam IM: Present: dry, warm Results - Vital Signs Vital signs: Temp Pulse Resp BP Pulse Ox 98 F 96 16 137/93 94 12/03/17 09:00 12/03/17 09:00 12/03/17 09:00 12/03/17 09:00 12/02/17 15:33 - Labs Labs: Laboratory Last Values WBC 9.2 K/mcL (4.3-11.1) 12/02/17 11:01 RBC 4.49 M/mcL (4.19-5.50) 12/02/17 11:01 Hgb 13.7 g/dL (12.9-16.9) 12/02/17 11:01 Hct 39.7 % (37.5-50.1) 12/02/17 11:01 MCV 88.4 fL (83.0-100.0) 12/02/17 11:01 MCH 30.5 pg (28.0-33.3) 12/02/17 11:01 MCHC 34.5 g/dL (31.6-35.5) 12/02/17 11:01 RDW 12.5 % (11.5-14.5) 12/02/17 11:01 Plt Count 313 K/mcL (140-400) 12/02/17 11:01 MPV 10.2 fL (9.4-12.4) 12/02/17 11:01 Immature Gran % 0.3 % (0-4) 12/02/17 11:01 Seg Neutrophils % 74.5 % 12/02/17 11:01 Lymphocytes % 15.3 % 12/02/17 11:01 Monocytes % 9.1 % 12/02/17 11:01 Eosinophils % 0.4 % 12/02/17 11:01 Basophils % 0.4 % 12/02/17 11:01 Neutrophils # 6.8 K/mcL (1.6-8.9) 12/02/17 11:01 Lymphocytes # 1.4 K/mcL (0.6-4.6) 12/02/17 11:01 Monocytes # 0.8 K/mcL (0.0-1.3) 12/02/17 11:01 Eosinophils # 0.0 K/mcL (0.0-0.6) 12/02/17 11:01 Basophils # 0.0 K/mcL (0.0-0.2) 12/02/17 11:01 D-Dimer 215 ng/mLFEU (0-500) 12/02/17 11:01 VBG pH 7.41 pH Units (7.32-7.42) 12/02/17 11:23 VBG pCO2 38 mmHg (41-51) L 12/02/17 11: VBG pO2 90 mmHg (25-50) H 12/02/17 11:23 VBG HCO3 24 mEq/L (21-27) 12/02/17 11:23 Sodium 136 mEq/L (136-145) 12/02/17 11:01 Potassium 3.6 mEq/L (3.5-5.1) 12/02/17 11:01 Chloride 104 mEq/L (98-107) 12/02/17 11:01 Carbon Dioxide 25 mEq/L (23-29) 12/02/17 11:01 BUN 6 mg/dL (6-20) 12/02/17 11:01 Creatinine 0.87 mg/dL (0.70-1.30) 12/02/17 11:01 Est GFR ( Amer) > 60 (> 60) 12/02/17 11:01 Est GFR (Non-Af Amer) > 60 (> 60) 12/02/17 11:01 BUN/Creatinine Ratio 7 (6-26) 12/02/17 11:01 Glucose 137 mg/dL (70-105) H 12/02/17 11:01 Calculated Osmolality 282 (280-300) 12/02/17 11:01 Calcium 9.6 mg/dL (8.6-10.3) 12/02/17 11:01 Urine Color Yellow (Yellow) 12/02/17 11:00 Urine Clarity Clear (Clear) 12/02/17 11:00 Urine pH 6.5 pH Units (5.0-8.0) 12/02/17 11:00 Ur Specific [place] 1.006 (1.010-1.025) L 12/02/17 11:00 Urine Protein Negative mg/dL (Neg-Trace) 12/02/17 11:00 Urine Glucose (UA) Normal mg/dL (Normal) 12/02/17 11:00 Urine Ketones Negative mg/dL (Negative) 12/02/17 11:00 Urine Blood Negative (Negative) 12/02/17 11:00 Urine Nitrite Negative (Negative) 12/02/17 11:00 Urine Bilirubin Negative (Negative) 12/02/17 11:00 Urine Urobilinogen Normal mg/dL (Normal) 12/02/17 11:00 Ur Leukocyte Esterase Moderate (Negative) H 12/02/17 11:00 Urine Microscopic RBC 0-3 per hpf (0-3) 12/02/17 11:00 Urine Microscopic WBC 5-15 per hpf (0-3) H 12/02/17 11:00 Ur Squamous Epith Cells Moderate per lpf (None-Few) H 12/02/17 11:00 Urine Bacteria None Seen per hpf (None-Few) 12/02/17 11:00 Hyaline Casts None Seen per lpf (None-Few) 12/02/17 11:00 Salicylates < 5.0 mg/dL (15.0-30.0) L 12/02/17 17:06 Urine Opiates Screen Negative ng/mL (Hzjmov=837) 12/02/17 11:00 Acetaminophen < 1.0 mcg/mL (10-30) L 12/02/17 11:01 Ur Barbiturates Screen Negative ng/mL (Rpibey=095) 12/02/17 11:00 Valproic Acid < 2 mcg/mL (50-100) L 12/02/17 11:01 Ur Phencyclidine Scrn Negative ng/mL (Cutoff=25) 12/02/17 11:00 Ur Amphetamines Screen Negative ng/mL (Rcximc=4412) 12/02/17 11:00 U Benzodiazepines Scrn Negative ng/mL (Fjzgru=526) 12/02/17 11:00 Urine Cocaine Screen Negative ng/mL (Cutoff= 300) 12/02/17 11:00 U Marijuana (THC) Screen Negative ng/mL (Cutoff = 50) 12/02/17 11:00 Ethyl Alcohol < 10 mg/dL (0-10) 12/02/17 11:01 Assessment and Plan (1) Schizophrenia Current visit: No Status: Chronic Plan: Admit inpatient for safety and stabilization, Close observation, Suicide Precautions per unit protocol, Encourage participation in unit milieu, Group Therapy, Monitor sleep, Monitor appetite Additional Plan: Restart all medications. Encourage positive coping strategies to deal with stressors. Worked with treatment team on finding an appropriate place to discharge patient when he will be safe and be able to obtain his medication. Risks, benefits, side effects, alternatives discussed w/pt: Yes Patient agreeable to treatment: Yes Plans for Post Hospital Care: Home Estimated Length of Stay (Days): 3 Qualifiers: Schizophrenia type: disorganized schizophrenia Qualified Code(s): F20.1 - Disorganized schizophrenia (2) Substance abuse Current visit: No Status: Acute Plan: Admit inpatient for safety and stabilization, Close observation, Suicide Precautions per unit protocol, Encourage participation in unit milieu, Group Therapy, Monitor sleep, Monitor appetite Additional Plan: Restart home medications.
[2017-12-04] MEDS: Divalproex (12 HR) 250 MG TABLET PO SCH ×2 (10:34→20:57)
[2017-12-04] MEDS: *HR* Rivaroxaban 10 MG TABLET PO SCH (10:35)
[2017-12-04] MEDS: NALTREXONE HCL 50 MG TABLET PO SCH (10:35)
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
[2017-12-05] MEDS: *HR* Rivaroxaban 10 MG TABLET PO SCH (09:39)
[2017-12-05] MEDS: Divalproex (12 HR) 250 MG TABLET PO SCH ×2 (09:40→21:08)
[2017-12-05] MEDS: NALTREXONE HCL 50 MG TABLET PO SCH (09:40)
--- NOTE | 2017-12-05 11:22 | Psychiatry Progress Note ---
Date of Encounter: 12/05/17 Time of Encounter: 11:15 Subjective Interval history: The patient remains flat and disorganized. His answers tended to be monosyllabic. He has been told to take shower but has not as yet. He did go to group last night but this was because there was offered for snack. The patient tends to lay in his room. He has not been observed hallucinating. The patient has been on the same medicines. 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 He says that he has never been to [facility] for this area Review of Systems Psychiatric: Reports: anxiety, abnormal sleep pattern, auditory hallucinations, confusion, memory loss. Denies: suicidal ideation Objective: Exam Patient orientation: Yes Person, Yes Time, Yes Place Level of alertness: Alert Patient appearance: Unkempt, Disheveled, Malodorous, Obese Behavior: withdrawn Psychomotor activity: Slowed Eye contact: Minimal Contact Mood description: Depressed Affect description: blunted, flat Speech pattern: Slowed, Impoverished, Monotone Speech volume: Normal Thought process: Slowed Thinking Thought content: Yes Poverty of Content Judgment: Poor Insight: Minimal Results - Vital Signs Vital Signs: Temp Pulse Resp BP Pulse Ox 98.6 F 101 16 134/91 94 12/05/17 09:00 12/05/17 09:00 12/05/17 09:00 12/05/17 09:00 12/02/17 15:33 Assessment and Plan (1) Patient's noncompliance with other medical treatment and regimen Current visit: Yes Status: Acute Plan: Continue hospitalization, Close observation, Encourage participation in unit milieu Risks, benefits, side effects, alternatives discussed w/pt: Yes Patient agreeable to treatment: Yes (2) Chronic schizophrenia Current visit: No Status: Suspected Plan: Continue hospitalization, Encourage participation in unit milieu, Family/ Supportive other meeting Risks, benefits, side effects, alternatives discussed w/pt: Yes Patient agreeable to treatment: Yes (3) Legal problem Current visit: No Status: Acute Plan: Continue hospitalization Risks, benefits, side effects, alternatives discussed w/pt: Yes Patient agreeable to treatment: Yes (4) DVT prophylaxis Current visit: No Status: Acute Plan: Continue hospitalization, Monitor appetite Risks, benefits, side effects , alternatives discussed w/pt: Yes Patient agreeable to treatment: Yes Consult Discharge Plan - Plan Referrals: NONE,PCP [Primary Care Provider] -
[2017-12-05] MEDS: hydrOXYzine pamoate 25 MG CAPSULE PO PRN (16:32)
[2017-12-05] MEDS: Acetaminophen 325 MG TABLET PO PRN (16:32)
[2017-12-06] MEDS: NALTREXONE HCL 50 MG TABLET PO SCH (08:56)
[2017-12-06] MEDS: Divalproex (12 HR) 250 MG TABLET PO SCH ×2 (08:56→21:49)
[2017-12-06] MEDS: *HR* Rivaroxaban 10 MG TABLET PO SCH (08:56)
--- NOTE | 2017-12-06 13:17 | Psychiatry Progress Note ---
Date of Encounter: 12/06/17 Time of Encounter: 13:00 Subjective Interval history: Patient seen today , case d/w treatment team , patient is well known to this facility , he has had multiple inpatient admissions secondary to his non compliance and this time he eloped from detention. Patient states my father needs me , i ran out of medicine , he has h/o psychosis and unable to care for self when psychotic. patient shouldbe on long acting injection for his Schizophrenia , as non compliant and poor insight. at present he is awake but internally preoccupied and dishelved. will start him on invega and at present continue seroquel but will taper slowly and will start invega sustenna. patient agreed with plan. Review of Systems Psychiatric: Reports: anxiety, abnormal sleep pattern, auditory hallucinations, confusion, memory loss. Denies: suicidal ideation Objective: Exam Patient orientation: Yes Person, Yes Place Level of alertness: Alert Patient appearance: Disheveled Behavior: cooperative, guarded Psychomotor activity: Slowed Eye contact: Minimal Contact Mood description: Euthymic/stable Affect description: flat Speech pattern: Slowed Speech volume: Normal Thought process: Disorganized Thought content: Yes Preoccupation, Yes Paranoid delusion Perceptual disturbances: Yes Reacting to internal stimuli Judgment: Poor Insight: None Results - Vital Signs Vital Signs: Temp Pulse Resp BP Pulse Ox 98.2 F 98 16 135/90 94 12/06/17 09:00 12/06/17 09:00 12/06/17 09:00 12/06/17 09:00 12/02/17 15:33 Assessment and Plan (1) Schizophrenia Current visit: No Status: Chronic Plan: Continue hospitalization, Close observation, Suicide Precautions per unit protocol, Encourage participation in unit milieu, Group Therapy, Monitor sleep, Monitor appetite, Family/Supportive other meeting Risks, benefits, side effects, alternatives discussed w/pt: Yes Patient agreeable to treatment: Yes Qualifiers: Schizophrenia type: disorganized schizophrenia Qualified Code(s): F20.1 - Disorganized schizophrenia Consult Discharge Plan - Plan Referrals: NONE,PCP [Primary Care Provider] -
[2017-12-06] MEDS: hydrOXYzine pamoate 25 MG CAPSULE PO PRN (17:28)
[2017-12-06] MEDS: Acetaminophen 325 MG TABLET PO PRN (17:28)
[2017-12-06] MEDS: GuaiFENesin/Pseudophedrine TABLET PO SCH (21:50)
[2017-12-07] MEDS: *HR* Rivaroxaban 10 MG TABLET PO SCH (09:22)
[2017-12-07] MEDS: Divalproex (12 HR) 250 MG TABLET PO SCH ×2 (09:22→21:01)
[2017-12-07] MEDS: GuaiFENesin/Pseudophedrine TABLET PO SCH ×2 (09:22→21:01)
[2017-12-07] MEDS: NALTREXONE HCL 50 MG TABLET PO SCH (09:22)
[2017-12-07] MEDS: Nicotine 14 MG PATCH.TD24 TD SCH (12:59)
--- NOTE | 2017-12-07 13:34 | Psychiatry Progress Note ---
Date of Encounter: 12/07/17 Time of Encounter: 12:30 Subjective Interval history: Patient seen today , case d/w staff and treatment team. Patient is still isolative and preoccupied internally , he took shower today , he has been taking his medications. plan was to start long acting injections but patient has in past h/o NMS and therefore unable to give injectables. will continue latuda 120 mg and seroquel . patient has poor judgement and insight. Review of Systems Psychiatric: Reports: anxiety, abnormal sleep pattern, auditory hallucinations, confusion, memory loss. Denies: suicidal ideation Objective: Exam Patient orientation: Yes Person, Yes Time, Yes Place Level of alertness: Alert Patient appearance: Disheveled Behavior: cooperative, guarded Psychomotor activity: Slowed Eye contact: Minimal Contact Mood description: Euthymic/stable Affect description: blunted Speech pattern: Slowed Speech volume: Soft/Quiet Thought process: Slowed Thinking Thought content: Yes Preoccupation, Yes Paranoid delusion Judgment: Poor Insight: None Results - Vital Signs Vital Signs: Temp Pulse Resp BP Pulse Ox 97.4 F L 80 18 124/86 94 12/07/17 09:00 12/07/17 09:00 12/07/17 09:00 12/07/17 09:00 12/02/17 15:33 Assessment and Plan (1) Schizophrenia Current visit: No Status: Chronic Risks, benefits, side effects, alternatives discussed w/pt: Yes Patient agreeable to treatment: Yes Qualifiers: Schizophrenia type: disorganized schizophrenia Qualified Code(s): F20.1 - Disorganized schizophrenia Consult Discharge Plan - Plan Referrals: NONE,PCP [Primary Care Provider] -
[2017-12-07] MEDS: Acetaminophen 325 MG TABLET PO PRN (14:48)
[2017-12-07] MEDS: hydrOXYzine pamoate 25 MG CAPSULE PO PRN ×2 (14:48→21:01)
[2017-12-07] MEDS: Mag Hydrox/Al Hydrox/Simeth 30 ML UDC PO PRN (16:04)
[2017-12-07] MEDS: traZODone 50 MG TABLET PO PRN (21:01)
[2017-12-08] MEDS: NALTREXONE HCL 50 MG TABLET PO SCH (08:58)
[2017-12-08] MEDS: *HR* Rivaroxaban 10 MG TABLET PO SCH (08:58)
[2017-12-08] MEDS: Divalproex (12 HR) 250 MG TABLET PO SCH ×2 (08:58→20:54)
[2017-12-08] MEDS: Nicotine 14 MG PATCH.TD24 TD SCH (08:58)
[2017-12-08] MEDS: GuaiFENesin/Pseudophedrine TABLET PO SCH ×2 (08:58→20:55)
[2017-12-08] MEDS: Acetaminophen 325 MG TABLET PO PRN (11:23)
[2017-12-08] MEDS: hydrOXYzine pamoate 25 MG CAPSULE PO PRN (11:23)
--- NOTE | 2017-12-08 14:06 | Psychiatry Progress Note ---
Date of Encounter: 12/08/17 Time of Encounter: 14:00 Subjective Interval history: Patient seen today , case d/w staff and treatment team , patient has responding slow to medications and is still isolative, internally preoccupied with por insight and judgement. he is compliant with medications , denies a/v hallucnations but is responding to internal stimuli and unable to care for basic needs and poor ADL. continue same treatment plan at present. Review of Systems Psychiatric: Reports: anxiety, abnormal sleep pattern, auditory hallucinations, confusion, memory loss. Denies: suicidal ideation Objective: Exam Patient orientation: Yes Person, Yes Place Level of alertness: Alert Patient appearance: Disheveled Behavior: cooperative, guarded Psychomotor activity: Slowed Eye contact: Minimal Contact Mood description: Anxious Affect description: flat Speech pattern: Slowed Speech volume: Normal Thought process: [place], Slowed Thinking Thought content: Yes Preoccupation, Yes Paranoid delusion Perceptual disturbances: Yes Reacting to internal stimuli Judgment: Poor Insight: None Results - Vital Signs Vital Signs: Temp Pulse Resp BP Pulse Ox 97.8 F 88 18 114/81 94 12/08/17 09:00 12/08/17 09:00 12/08/17 09:00 12/08/17 09:00 12/02/17 15:33 Assessment and Plan (1) Schizophrenia Current visit: No Status: Chronic Risks, benefits, side effects, alternatives discussed w/pt: Yes Patient agreeable to treatment: Yes Qualifiers: Schizophrenia type: disorganized schizophrenia Qualified Code(s): F20.1 - Disorganized schizophrenia Consult Discharge Plan - Plan Referrals: NONE,PCP [Primary Care Provider] -
[2017-12-09] MEDS: NALTREXONE HCL 50 MG TABLET PO SCH (08:14)
[2017-12-09] MEDS: GuaiFENesin/Pseudophedrine TABLET PO SCH ×2 (08:14→21:53)
[2017-12-09] MEDS: Nicotine 14 MG PATCH.TD24 TD SCH (08:14)
[2017-12-09] MEDS: *HR* Rivaroxaban 10 MG TABLET PO SCH (08:14)
[2017-12-09] MEDS: Divalproex (12 HR) 250 MG TABLET PO SCH ×2 (08:14→21:53)
--- NOTE | 2017-12-09 12:51 | Psychiatry Progress Note ---
Date of Encounter: 12/09/17 Time of Encounter: 12:30 Subjective Interval history: Patient seen today , case d/w treatment team . remains same , isolative , not attending groups , internal preoccupation , redirected , compliant , poor self care. will have probate today for continuous treatment. Review of Systems Psychiatric: Reports: anxiety, abnormal sleep pattern, auditory hallucinations, confusion, memory loss. Denies: suicidal ideation Objective: Exam Patient orientation: Yes Person, Yes Place Level of alertness: Alert Patient appearance: Disheveled Behavior: restless, guarded Psychomotor activity: Normal Eye contact: Minimal Contact Mood description: Euthymic/stable Affect description: blunted, flat Speech pattern: Slowed Speech volume: Soft/Quiet Thought process: [place] Thought content: Yes Preoccupation, Yes Paranoid delusion Perceptual disturbances: Yes Reacting to internal stimuli Judgment: Poor Insight: None Results - Vital Signs Vital Signs: Temp Pulse Resp BP Pulse Ox 98.0 F 77 16 119/84 94 12/09/17 09:00 12/09/17 09:00 12/09/17 09:00 12/09/17 09:00 12/02/17 15:33 Assessment and Plan (1) Schizophrenia Current visit: No Status: Chronic Risks, benefits, side effects, alternatives discussed w/pt: Yes Patient agreeable to treatment: Yes Qualifiers: Schizophrenia type: disorganized schizophrenia Qualified Code(s): F20.1 - Disorganized schizophrenia Consult Discharge Plan - Plan Referrals: NONE,PCP [Primary Care Provider] -
[2017-12-09] MEDS: Acetaminophen 325 MG TABLET PO PRN (19:05)
[2017-12-09] MEDS: Mag Hydrox/Al Hydrox/Simeth 30 ML UDC PO PRN (23:47)
[2017-12-10] MEDS: *HR* Rivaroxaban 10 MG TABLET PO SCH (08:42)
[2017-12-10] MEDS: Divalproex (12 HR) 250 MG TABLET PO SCH ×2 (08:42→21:42)
[2017-12-10] MEDS: GuaiFENesin/Pseudophedrine TABLET PO SCH ×2 (08:42→21:42)
[2017-12-10] MEDS: NALTREXONE HCL 50 MG TABLET PO SCH (08:42)
[2017-12-10] MEDS: Nicotine 14 MG PATCH.TD24 TD SCH (08:43)
--- NOTE | 2017-12-10 11:14 | Psychiatry Progress Note ---
Date of Encounter: 12/10/17 Time of Encounter: 11:05 Subjective Interval history: Patient seen today , case d/w treatment team , had probate yesterday. at present compliant with treatment plan. he is not going to groups or interacting, needs to directed to take showers and his self hygeine is not good. denies side effects. continue stabilization and discharge planning. Review of Systems Psychiatric: Reports: anxiety, abnormal sleep pattern, auditory hallucinations, confusion, memory loss. Denies: suicidal ideation Objective: Exam Patient orientation: Yes Person, Yes Time, Yes Place Level of alertness: Alert Patient appearance: Disheveled Behavior: guarded Psychomotor activity: Slowed Eye contact: Minimal Contact Mood description: Euthymic/stable Affect description: flat Speech pattern: Slowed Speech volume: Soft/Quiet Thought process: Slowed Thinking Thought content: Yes Preoccupation Perceptual disturbances: Yes Reacting to internal stimuli Judgment: Limited Insight: Minimal Results - Vital Signs Vital Signs: Temp Pulse Resp BP Pulse Ox 97.4 F L 107 16 86/62 94 12/10/17 09:00 12/10/17 09:00 12/10/17 09:00 12/10/17 09:00 12/02/17 15:33 Assessment and Plan (1) Schizophrenia Current visit: No Status: Chronic Risks, benefits, side effects, alternatives discussed w/pt: Yes Patient agreeable to treatment: Yes Qualifiers: Schizophrenia type: disorganized schizophrenia Qualified Code(s): F20.1 - Disorganized schizophrenia (2) Substance abuse Current visit: No Status: Acute Plan: Continue hospitalization, Suicide Precautions per unit protocol, Group Therapy, Monitor sleep, Monitor appetite Risks, benefits, side effects, alternatives discussed w/pt: Yes Patient agreeable to treatment: Yes Consult Discharge Plan - Plan Referrals: [facility] [place] [Outside]
[2017-12-10] MEDS: Acetaminophen 325 MG TABLET PO PRN (18:25)
[2017-12-10] MEDS: traZODone 50 MG TABLET PO PRN (21:43)
[2017-12-10] MEDS: hydrOXYzine pamoate 25 MG CAPSULE PO PRN (21:43)
[2017-12-11] MEDS: Divalproex (12 HR) 250 MG TABLET PO SCH ×2 (09:02→21:23)
[2017-12-11] MEDS: Nicotine 14 MG PATCH.TD24 TD SCH (09:03)
[2017-12-11] MEDS: NALTREXONE HCL 50 MG TABLET PO SCH (09:03)
[2017-12-11] MEDS: GuaiFENesin/Pseudophedrine TABLET PO SCH ×2 (09:03→21:25)
[2017-12-11] MEDS: *HR* Rivaroxaban 10 MG TABLET PO SCH (09:04)
--- NOTE | 2017-12-11 12:53 | Psychiatry Progress Note ---
Date of Encounter: 12/11/17 Time of Encounter: 12:40 Subjective Interval history: Patient seen today , case d/w staff, he has been compliant and has been taking care of his hygeine. Today he said , i am doing good, more verbal and able to maintain eye contact, denies side effects. he is denying any a/v hallucinations, at time is preoccupied and low grade paranoia. tolerating medications well. AIMS 0 Review of Systems Psychiatric: Reports: anxiety, abnormal sleep pattern, auditory hallucinations, confusion, memory loss. Denies: suicidal ideation Results - Vital Signs Vital Signs: Temp Pulse Resp BP Pulse Ox 96.9 F L 93 16 106/77 94 12/11/17 09:00 12/11/17 09:00 12/11/17 09:00 12/11/17 09:00 12/02/17 15:33 Assessment and Plan (1) Schizophrenia Current visit: No Status: Chronic Risks, benefits, side effects, alternatives discussed w/pt: Yes Patient agreeable to treatment: Yes Qualifiers: Schizophrenia type: disorganized schizophrenia Qualified Code(s): F20.1 - Disorganized schizophrenia (2) Substance abuse Current visit: No Status: Acute Risks, benefits, side effects, alternatives discussed w/pt: Yes Patient agreeable to treatment: Yes Consult Discharge Plan - Plan Referrals: [facility] [Outside] Psychiatry Exam - Constitutional Vitals: Temp Pulse Resp BP Pulse Ox 96.9 F L 93 16 106/77 94 12/11/17 09:00 12/11/17 09:00 12/11/17 09:00 12/11/17 09:00 12/02/17 15:33 General appearance: age & developmentally appropriate - Musculoskeletal Gait: normal Station: other Strength & Tone: normal for patient - Psychiatric Patient Orientation: Yes Person, Yes Time, Yes Place Level of alertness: Alert Behavior: cooperative Psychomotor activity: Slowed Eye Contact: Maintains Eye Contact Mood Description: Euthymic/stable Affect description: flat Speech Volume: Soft/Quiet Speech pattern: slowed Language & Vocabulary: limited Thought Process: Mcbrides, Slowed Thinking Thought Content: Yes Paranoid delusion Perceptual Disturbances: Yes Reacting to internal stimuli Attention Span Ability: Unable to Sustain Attention Patient Reliability: Questionable Historian Fund of knowledge: Yes below average Intelligence Estimate: Below Average Judgment: Poor Insight: None
[2017-12-11] MEDS: Acetaminophen 325 MG TABLET PO PRN (16:27)
[2017-12-11] MEDS: hydrOXYzine pamoate 25 MG CAPSULE PO PRN ×2 (16:27→21:24)
[2017-12-11] MEDS: traZODone 50 MG TABLET PO PRN (21:24)
[2017-12-12] MEDS: GuaiFENesin/Pseudophedrine TABLET PO SCH ×2 (09:43→21:36)
[2017-12-12] MEDS: Nicotine 14 MG PATCH.TD24 TD SCH (09:43)
[2017-12-12] MEDS: Divalproex (12 HR) 250 MG TABLET PO SCH ×2 (09:43→21:35)
[2017-12-12] MEDS: NALTREXONE HCL 50 MG TABLET PO SCH (09:44)
[2017-12-12] MEDS: *HR* Rivaroxaban 10 MG TABLET PO SCH (09:44)
--- NOTE | 2017-12-12 12:11 | Psychiatry Progress Note ---
Date of Encounter: 12/12/17 Time of Encounter: 12:00 Subjective Interval history: Patient seen today , case d/w staff. Patient showing improvement in his psychosis , self care and interaction. he is compliant with medication. denies side effects. contiue stabilization and start placement process and discharge planning. Review of Systems Psychiatric: Reports: anxiety, abnormal sleep pattern, auditory hallucinations, confusion, memory loss. Denies: suicidal ideation Results - Vital Signs Vital Signs: Temp Pulse Resp BP Pulse Ox 98.0 F 109 18 95/71 94 12/12/17 09:00 12/12/17 09:00 12/12/17 09:00 12/12/17 09:00 12/02/17 15:33 Assessment and Plan (1) Schizophrenia Current visit: No Status: Chronic Risks, benefits, side effects, alternatives discussed w/pt: Yes Patient agreeable to treatment: Yes Qualifiers: Schizophrenia type: disorganized schizophrenia Qualified Code(s): F20.1 - Disorganized schizophrenia (2) Substance abuse Current visit: No Status: Acute Risks, benefits, side effects, alternatives discussed w/pt: Yes Patient agreeable to treatment: Yes Consult Discharge Plan - Plan Referrals: [facility] [Outside] Psychiatry Exam - Constitutional Vitals: Temp Pulse Resp BP Pulse Ox 98.0 F 109 18 95/71 94 12/12/17 09:00 12/12/17 09:00 12/12/17 09:00 12/12/17 09:00 12/02/17 15:33 General appearance: age & developmentally appropriate - Musculoskeletal Gait: normal Station: other Strength & Tone: normal for patient - Psychiatric Patient Orientation: Yes Person, Yes Time, Yes Place Level of alertness: Alert Behavior: calm, cooperative Psychomotor activity: Normal Eye Contact: Maintains Eye Contact Mood Description: Euthymic/stable Affect description: flat Speech Volume: Soft/Quiet Speech pattern: slowed Language & Vocabulary: limited Thought Process: Slowed Thinking Thought Content: Yes Preoccupation Attention Span Ability: Unable to Sustain Attention Memory Description: Grossly Intact Patient Reliability: Questionable Historian Fund of knowledge: Yes below average Intelligence Estimate: Below Average Judgment: Poor Insight: Minimal
[2017-12-12] MEDS: Acetaminophen 325 MG TABLET PO PRN ×2 (14:44→21:34)
[2017-12-12] MEDS: hydrOXYzine pamoate 25 MG CAPSULE PO PRN ×2 (14:44→21:36)
--- NOTE | 2017-12-12 23:31 | Internal Medicine Consult Note ---
Date of Encounter: 12/12/17 Time of Encounter: 23:29 - Assessment and Plan (1) Chest pain Current Visit: Yes Status: Acute Assessment and plan: Patient presenting with left upper chest pain radiating down to her left arm. Most likely musculoskeletal or pleuritic pain. Patient is not in any distress at this time and pain is already improving. We will get a set of troponins. Also get an x-ray. He has already had workup for coronary artery disease with a stress test one month back which was negative for any ischemia. I do not believe any further workup is not necessary at this time unless troponins are abnormal. Okay to monitor and psychiatric unit for now. If pain recurs or worsens, we will transfer him to [facility] floor and place him under observation. Qualifiers: Chest pain type: other chest pain Qualified Code(s): R07.89 - Other chest pain; R07.8 - Other chest pain (2) Schizophrenia Current Visit: Yes Status: Acute Assessment and plan: Being managed in the adult psychiatric unit. Psychiatry following. Qualifiers: Schizophrenia type: other Qualified Code(s): F20.89 - Other schizophrenia; F20.8 - Other schizophrenia (3) Pulmonary embolism Current Visit: Yes Status: Chronic Assessment and plan: On Xarelto. Patient is not hypoxic at this time. Vital signs remained stable. Most recent CT scan showed decrease clot burden. At this time no indication for repeat imaging. Continue Xarelto. Qualifiers: Pulmonary embolism type: other Chronicity: unspecified Acute cor pulmonale presence: without acute cor pulmonale Qualified Code(s): I26.99 - Other pulmonary embolism without acute cor pulmonale Internal Medicine - CN: HPI - Data of Consult Patient: known to practice within the last 3 years Requesting Physician: Sanaz Araiza MD - Consult Narrative Reason for consult: Chest pain History of present illness: Mr. Miller is a 37 year old male patient with history of schizophrenia, substance abuse was hospitalized here for psychosis to the adult psychiatric unit complaining of chest pain that was left-sided and radiating down his left upper arm. He was previously diagnosed with PE and has been on Xarelto since. He reports that the pain is improving already. He did not receive an aspirin or nitroglycerin. He denies any shortness of breath. He says that he has never had similar kind of pain before but reviewing his records he presented with similar complaints when he was diagnosed with PE and also had similar complaints one month back. He underwent a cardiac stress test then which was negative for ischemia. Past Med Surg Social Fam HX - Past Medical History Attestation: Yes The following information was validated with the patient. Source: patient, old records reviewed Medical history: hyperlipidemia, hypertension, pulmonary embolus Psychiatric history: schizophrenia, previous psychiatric hospitalization - Past Surgical History Surgical History: appendectomy, arthroscopy - Social History Smoking Status: Current every day smoker Smokeless Tobacco Status: Yes Alcohol use: occasionally Drug use: cocaine, marijuana, methamphetamine - Family History Father Adopted: No Family Member Ethnicity: Non- Living Status: Still Living Hx Family Cardiac Disorders: No Hx Family Respiratory Disorders: No Hx Family Cancer: No Hx Family GI Disorders: No Hx Family Genitourinary Disorders: No Hx Family Endocrine Disorder: No Hx Family Musculoskeletal Disorders: No Hx Family Neuromuscular Disorders: No Hx Family Neurologic Disorders: No Hx Family HEENT Disorders: No Hx Family Autoimmune Disorders: No Hx Family Reproductive Disorders: No Hx Family Psychosocial Disorders: No Hx Family Medical Disorders: No All systems: reviewed and no additional remarkable complaints except as stated - Cardiovascular Cardiovascular ROS IM: chest pain - Respiratory Respiratory: no dyspnea, no hemoptysis, no change in phlegm color - Gastrointestinal Gastrointestinal: no abdominal pain, no nausea Internal Medicine - CN: Meds Divalproex (12 HR) [Depakote (12 HR)] 250 mg PO BID 30 Days #60 tablet. [Rx] Lisinopril [Zestril] 5 mg PO DAILY 30 Days #30 tablet 11/18/17 [Rx] Lurasidone [Latuda] 120 mg PO DAILY 30 Days #30 tablet 11/18/17 [Rx] Naltrexone HCl 50 mg PO DAILY 30 Days #30 tablet 11/18/17 [Rx] Propranolol [Inderal] 20 mg PO BID 60 Days #30 tablet 11/18/17 [Rx] Quetiapine Fumarate [Seroquel] 400 mg PO HS 30 Days #30 tablet 11/18/17 [Rx] Rivaroxaban [Xarelto] 15 mg PO BID 60 Days #30 tablet 11/18/17 [Rx] traZODone [TraZODone] 50 mg PO HS PRN 30 Days #30 tablet 02/15/18 [Rx] Benztropine [Cogentin] 1 mg PO BID 12/02/17 [History] HydrOXYzine Pamoate 25 mg PO TID PRN 12/02/17 [History] 3 Allergy/AdvReac Type Severity Reaction Status Date / Time No Known Allergies Allergy Verified 06/01/17 14:51 Internal Medicine - CN: Exam - Constitutional Vitals: Temp Pulse Resp BP Pulse Ox 98.2 F 101 16 92/70 94 12/12/17 21:00 12/12/17 21:00 12/12/17 21:00 12/12/17 21:00 12/02/17 15:33 General appearance IM: Present: cooperative, A&O X 3, obese, answers questions appropriately - Head Additional comments: Erythema noted on face - ENT ENT exam: Present: mucous membranes moist - Respiratory Respiratory exam: Present: CTAB. Absent: accessory muscle use, respiratory distress, rhonchi, wheezes - Cardiovascular Cardiovascular exam IM: Present: RRR, +S1, +S2. Absent: systolic murmur - GI/Abdominal GI/Abdominal exam IM: Present: normal bowel sounds, soft. Absent: tenderness - Extremities Exam Extremities exam IM: Absent: pedal edema - Neurological Exam Neurological exam: Present: alert, oriented X3, strengths equal and symetr throughout - Psychiatric Psychiatric exam: Present: flat affect Internal Medicine - CN: Reslt - Labs CBC & Chem 7: 12/02/17 11:01 12/02/17 11:01 - ABG Interpretation ABG results: PT/INR, D-dimer D-Dimer 215 ng/mLFEU (0-500) 12/02/17 11:01 - EKG Data -: EKG Interpreted by Myself EKG shows normal: sinus rhythm - EKG Data When compared to previous EKG: there is no significant change Interpretation IM: normal EKG Consult Discharge Plan - Plan Referrals: [facility] [Outside]
[2017-12-13] MEDS: NALTREXONE HCL 50 MG TABLET PO SCH (09:41)
[2017-12-13] MEDS: Divalproex (12 HR) 250 MG TABLET PO SCH ×2 (09:41→20:46)
[2017-12-13] MEDS: *HR* Rivaroxaban 10 MG TABLET PO SCH (09:42)
[2017-12-13] MEDS: Nicotine 14 MG PATCH.TD24 TD SCH (09:42)
[2017-12-13] MEDS: GuaiFENesin/Pseudophedrine TABLET PO SCH ×2 (09:49→20:47)
--- NOTE | 2017-12-13 13:03 | Internal Med Progress Note ---
<Kenrick James - Last Filed: 12/13/17 14:32> Date of Encounter: 12/13/17 Time of Encounter: 12:45 - Assessment and plan (1) Chest pain Current Visit: No Status: Resolved Assessment and plan: Likely musculoskeletal Patient presenting with left upper chest pain radiating down to her left arm Patient is not in any distress at this time and pain is resolved Troponins x2 negative CXR is unremarkable EKG shows NSR He has already had workup for coronary artery disease with a stress test one month back which was negative for any ischemia Most likely musculoskeletal or pleuritic pain I do not believe any further workup is not necessary at this time Okay to monitor and psychiatric unit for now If pain recurs, we will transfer him to [facility] floor and place him under observation Internal medicine will sign off, please reconsult if needed. Qualifiers: Chest pain type: other chest pain Qualified Code(s): R07.89 - Other chest pain; R07.8 - Other chest pain (2) Schizophrenia Current Visit: Yes Status: Acute Assessment and plan: Being managed in the inpatient adult psychiatric unit Qualifiers: Schizophrenia type: other Qualified Code(s): F20.89 - Other schizophrenia; F20.8 - Other schizophrenia (3) Pulmonary embolism Current Visit: Yes Status: Chronic Assessment and plan: Previous PE, currently on Xarelto Patient is not hypoxic, tachycardic, coughing, or complaining of pleuritic pain at this time Vital signs remained stable Most recent CT on 11/02/17 scan showed decrease clot burden At this time no indication for repeat imaging Continue Xarelto Qualifiers: Pulmonary embolism type: other Chronicity: unspecified Acute cor pulmonale presence: without acute cor pulmonale Qualified Code(s): I26.99 - Other pulmonary embolism without acute cor pulmonale - Subjective Interval history: Patient resting comfortably. Patient has no concerns/complaints today. He denies having any continuation of his chest pain and it has not returned. He denies having any pleuritic pain, shoulder pain, jaw pain, numbness or tingling , nausea, or diaphoresis. He does feel like his heart skips a beat on occasion. Patient has had previous episodes of chest pain similar to this. During these episodes he at times has been admitted to the floor. All workups are typically negative. Patient had echocardiogram done on 10/22/17 which showed EF of 55-60% with normal left ventricular chamber size and wall thickness, and function. He had a nuclear stress test performed on 11/13/17 which was negative for ischemia or infarct. - Constitutional Vitals: Temp Pulse Resp BP Pulse Ox 97.2 F L 98 20 98/75 94 12/13/17 09:00 12/13/17 09:00 12/13/17 09:00 12/13/17 09:00 12/02/17 15:33 General appearance: Present: cooperative, A&O X 3, obese, answers questions appropriately Exam: General: Cooperative, pleasant, no acute distress, alert and oriented 3, answers questions appropriately HEENT: Normocephalic, atraumatic, neck supple, trachea midline, Conjunctiva pink , sclera anicteric, oral mucosa moist Respiratory: No accessory muscle usage, clear to auscultation bilaterally, no wheezes/rhonchi/rales appreciated Cardiovascular: Regular rate and rhythm, S1 and S2 present, no murmurs/rubs/ gallops/clicks appreciated GI/abdominal: Nondistended, nontender, soft, normal bowel sounds, no peritoneal signs Extremities: No calf tenderness, no pedal edema appreciated, warm, lower extremity pulses palpable and symmetrical Neurological: Alert and oriented 3, no facial droop, no focal deficits Skin: Dry, intact, normal color Internal Medicine: Result - Labs CBC & Chem 7: 12/02/17 11:01 12/02/17 11:01 Labs: Cardiac Enzymes 12/12/17 12/13/17 Range/Units 23:25 05:35 Troponin I < 0.03 < 0.03 (< 0.04) ng/mL - ABG Interpretation ABG results: PT/INR, D-dimer D-Dimer 215 ng/mLFEU (0-500) 12/02/17 11:01 - Impressions Impressions Chest X-Ray 12/12/17 23:37 IMPRESSION: Negative portable chest. D/ / Duc Handy MD / Duc Handy MD Interpreting Provider: Duc Handy MD - VTE Reasons for not Prescribing Prophylaxis: Treatment not Indicated - Low risk for VTE Consult Discharge Plan - Plan Referrals: [facility] [place] [Outside] - 12/20/17 1:00 pm (The above appointment is with Racquel Blair for outpatient mental health counseling and case management services. You will also see Yaritza Ortiz for outpatient psychiatric assessment and medication management services on 01/25/2018 at 3:30pm.) <[place]bel [place] - Last Filed: 12/13/17 15:26> Date of Encounter: 12/13/17 - Constitutional Vitals: Temp Pulse Resp BP Pulse Ox 97.2 F L 98 20 98/75 94 12/13/17 09:00 12/13/17 09:00 12/13/17 09:00 12/13/17 09:00 12/02/17 15:33 Internal Medicine: Result - Labs CBC & Chem 7: 12/02/17 11:01 12/02/17 11:01 Labs: Cardiac Enzymes 12/12/17 12/13/17 Range/Units 23:25 05:35 Troponin I < 0.03 < 0.03 (< 0.04) ng/mL - ABG Interpretation ABG results: PT/INR, D-dimer D-Dimer 215 ng/mLFEU (0-500) 12/02/17 11:01 - Impressions Impressions Chest X-Ray 12/12/17 23:37 IMPRESSION: Negative portable chest. D/ / Duc Handy MD / Duc Handy MD Interpreting Provider: Duc Handy MD - Attending Attestation EKG and trop normal, normal stress test recently. Will sign off, please reconsult if needed I examined this patient and my medical decision-making was reviewed with the Resident Physician. I agree with the documented findings, disposition and treatment plan as described except to the extent set forth below.
[2017-12-13] MEDS: Acetaminophen 325 MG TABLET PO PRN (17:07)
[2017-12-13] MEDS: hydrOXYzine pamoate 25 MG CAPSULE PO PRN (17:07)
--- NOTE | 2017-12-13 17:39 | Psychiatry Progress Note ---
Date of Encounter: 12/13/17 Time of Encounter: 17:10 Subjective Interval history: Patient seen for follow-up. Case discussed with the treatment team. Patient decompensated and retain the hospital after being placed in fdc due to noncompliance. Review of Systems Psychiatric: Reports: anxiety, abnormal sleep pattern, auditory hallucinations, confusion, memory loss. Denies: suicidal ideation Results - Vital Signs Vital Signs: Temp Pulse Resp BP Pulse Ox 97.2 F L 98 20 98/75 94 12/13/17 09:00 12/13/17 09:00 12/13/17 09:00 12/13/17 09:00 12/02/17 15:33 - Labs Labs: Laboratory Results - last 24 hr 12/12/17 12/13/17 23:25 05:35 Troponin I < 0.03 < 0.03 - Impressions ITS Impressions Chest X-Ray 12/12/17 23:37 IMPRESSION: Negative portable chest. D/ / Duc Handy MD / Duc Handy MD Interpreting Provider: Duc Handy MD Assessment and Plan (1) Schizophrenia Current visit: No Status: Chronic Plan: Continue hospitalization, Close observation, Suicide Precautions per unit protocol, Encourage participation in unit milieu, Group Therapy, Monitor sleep, Monitor appetite Risks, benefits, side effects, alternatives discussed w/pt: Yes Patient agreeable to treatment: Yes Qualifiers: Schizophrenia type: disorganized schizophrenia Qualified Code(s): F20.1 - Disorganized schizophrenia Consult Discharge Plan - Plan Referrals: [facility] [Outside] - 12/20/17 1:00 pm (The above appointment is with Racquel Blair for outpatient mental health counseling and case management services. You will also see Yaritza Ortiz for outpatient psychiatric assessment and medication management services on 01/25/2018 at 3:30pm.) Psychiatry Exam - Constitutional Vitals: Temp Pulse Resp BP Pulse Ox 97.2 F L 98 20 98/75 94 12/13/17 09:00 12/13/17 09:00 12/13/17 09:00 12/13/17 09:00 12/02/17 15:33 General appearance: age & developmentally appropriate, well-nourished, unkempt, disheveled, malodorous, bizarre, obese - Musculoskeletal Gait: normal Station: relaxed Strength & Tone: normal for patient - Psychiatric Patient Orientation: Yes Person, Yes Time, Yes Place Level of alertness: Alert Behavior: calm, cooperative, distractible, withdrawn Psychomotor activity: Slowed Eye Contact: Minimal Contact Mood Description: Euthymic/stable, Anxious Affect description: congruent with mood, constricted, blunted, flat Speech Volume: Normal Speech pattern: normal rate, normal rhythm, normal tone, disorganized, limited Language & Vocabulary: consistent with education, limited Thought Process: Circumstantial, Tangential, Thought Blocking, Disorganized, Slowed Thinking Thought Content: No Suicidal ideation, No Homicidal ideation, Yes Overt delusions Perceptual Disturbances: Yes Auditory hallucinations, Yes Visual hallucinations Attention Span Ability: Unable to Focus Memory Description: Grossly Intact Patient Reliability: Reliable Historian Fund of knowledge: Yes abstraction ability, Yes aware of current events Intelligence Estimate: Average Judgment: Limited Insight: Partial
[2017-12-14] MEDS: Mag Hydrox/Al Hydrox/Simeth 30 ML UDC PO PRN (01:56)
[2017-12-14] MEDS: GuaiFENesin/Pseudophedrine TABLET PO SCH ×2 (09:13→20:21)
[2017-12-14] MEDS: NALTREXONE HCL 50 MG TABLET PO SCH (09:14)
[2017-12-14] MEDS: *HR* Rivaroxaban 10 MG TABLET PO SCH (09:14)
[2017-12-14] MEDS: Divalproex (12 HR) 250 MG TABLET PO SCH ×2 (09:14→20:01)
[2017-12-14] MEDS: Nicotine 14 MG PATCH.TD24 TD SCH (09:15)
--- NOTE | 2017-12-14 15:36 | Psychiatry Progress Note ---
Date of Encounter: 12/14/17 Time of Encounter: 15:34 Subjective Interval history: Patient is seen for follow-up. Case discussed with treatment team. Patient is reported to be compliant with medication, denied any somatic complaints. He is not agitated or irritable. He denied hearing voices. Discharge planning is ongoing. Is fairly challenging to place him because of his history of noncompliance. Review of Systems Psychiatric: Reports: anxiety, abnormal sleep pattern, auditory hallucinations, confusion, memory loss. Denies: suicidal ideation Results - Vital Signs Vital Signs: Temp Pulse Resp BP Pulse Ox 98.0 F 107 16 103/76 94 12/14/17 09:00 12/14/17 09:00 12/14/17 09:00 12/14/17 09:00 12/02/17 15:33 - Impressions ITS Impressions Chest X-Ray 12/12/17 23:37 IMPRESSION: Negative portable chest. D/ / Duc Handy MD / Duc Handy MD Interpreting Provider: Duc Handy MD Assessment and Plan (1) Schizophrenia Current visit: No Status: Chronic Plan: Continue hospitalization, Close observation, Suicide Precautions per unit protocol, Encourage participation in unit milieu, Group Therapy, Monitor sleep, Monitor appetite Risks, benefits, side effects, alternatives discussed w/pt: Yes Patient agreeable to treatment: Yes Qualifiers: Schizophrenia type: disorganized schizophrenia Qualified Code(s): F20.1 - Disorganized schizophrenia Consult Discharge Plan - Plan Referrals: [facility] [Outside] - 12/20/17 1:00 pm (The above appointment is with Racquel Blair for outpatient mental health counseling and case management services. You will also see Yaritza Ortiz for outpatient psychiatric assessment and medication management services on 01/25/2018 at 3:30pm.) Psychiatry Exam - Constitutional Vitals: Temp Pulse Resp BP Pulse Ox 98.0 F 107 16 103/76 94 12/14/17 09:00 12/14/17 09:00 12/14/17 09:00 12/14/17 09:00 12/02/17 15:33 General appearance: age & developmentally appropriate, well-nourished, unkempt, bizarre - Musculoskeletal Gait: normal Station: relaxed Strength & Tone: normal for patient - Psychiatric Patient Orientation: Yes Person, Yes Time, Yes Place Level of alertness: Alert Behavior: calm, cooperative, withdrawn Psychomotor activity: Slowed Eye Contact: Minimal Contact Mood Description: Euthymic/stable Affect description: congruent with mood, euthymic, blunted Speech Volume: Normal Speech pattern: normal rate, normal rhythm, normal tone, fluent, spontaneous, impoverished Language & Vocabulary: consistent with education Thought Process: Linear, Goal Oriented Thought Content: No Suicidal ideation, No Homicidal ideation, No Overt delusions Perceptual Disturbances: No Auditory hallucinations, No Visual hallucinations Attention Span Ability: Capable of Focused Attention Memory Description: Grossly Intact Patient Reliability: Reliable Historian Fund of knowledge: Yes abstraction ability, Yes aware of current events Intelligence Estimate: Below Average Judgment: Limited Insight: Partial
[2017-12-15] MEDS: GuaiFENesin/Pseudophedrine TABLET PO SCH ×2 (08:59→20:13)
[2017-12-15] MEDS: *HR* Rivaroxaban 10 MG TABLET PO SCH (08:59)
[2017-12-15] MEDS: Divalproex (12 HR) 250 MG TABLET PO SCH ×2 (08:59→20:13)
[2017-12-15] MEDS: NALTREXONE HCL 50 MG TABLET PO SCH (09:00)
[2017-12-15] MEDS: Nicotine 14 MG PATCH.TD24 TD SCH (09:00)
[2017-12-15] MEDS: Mag Hydrox/Al Hydrox/Simeth 30 ML UDC PO PRN (12:04)
[2017-12-15] MEDS: Acetaminophen 325 MG TABLET PO PRN ×2 (12:13→20:12)
[2017-12-15] MEDS: hydrOXYzine pamoate 25 MG CAPSULE PO PRN (12:13)
--- NOTE | 2017-12-15 15:34 | Psychiatry Progress Note ---
Date of Encounter: 12/15/17 Time of Encounter: 15:32 Subjective Interval history: Patient seen for follow-up. Case discussed was treatment team. He is reported to be cooperative, compliant with medication, and attend some activities. Plans for his discharge has been challenging due to his history of noncompliance. There is no report of any agitation or hallucination or paranoia. Patient responded to treatment positively in a controlled environment and then decompensates after discharge. We will continue to work on his discharge plans. Review of Systems Psychiatric: Reports: anxiety, abnormal sleep pattern, auditory hallucinations, confusion, memory loss. Denies: suicidal ideation Results - Vital Signs Vital Signs: Temp Pulse Resp BP Pulse Ox 97.8 F 103 18 114/82 94 12/15/17 09:00 12/15/17 09:00 12/15/17 09:00 12/15/17 09:00 12/02/17 15:33 - Impressions ITS Impressions Chest X-Ray 12/12/17 23:37 IMPRESSION: Negative portable chest. D/ / Duc Handy MD / Duc Handy MD Interpreting Provider: Duc Handy MD Assessment and Plan (1) Schizophrenia Current visit: No Status: Chronic Plan: Continue hospitalization, Close observation, Suicide Precautions per unit protocol, Encourage participation in unit milieu, Group Therapy, Monitor sleep, Monitor appetite Risks, benefits, side effects, alternatives discussed w/pt: Yes Patient agreeable to treatment: Yes Qualifiers: Schizophrenia type: disorganized schizophrenia Qualified Code(s): F20.1 - Disorganized schizophrenia Consult Discharge Plan - Plan Referrals: [facility] [Outside] - 12/24/17 11:00 am (The above appointment is with Racquel Blair for outpatient mental health counseling and case management services. You will also see Yaritza Ortiz for outpatient psychiatric assessment and medication management services on 01/25/2018 at 3:30pm.) Psychiatry Exam - Constitutional Vitals: Temp Pulse Resp BP Pulse Ox 97.8 F 103 18 114/82 94 12/15/17 09:00 12/15/17 09:00 12/15/17 09:00 12/15/17 09:00 12/02/17 15:33 General appearance: age & developmentally appropriate, well-nourished, disheveled, obese - Musculoskeletal Gait: normal Station: relaxed Strength & Tone: normal for patient - Psychiatric Patient Orientation: Yes Person, Yes Time, Yes Place Level of alertness: Alert Behavior: calm, cooperative Psychomotor activity: Normal Eye Contact: Minimal Contact Mood Description: Euthymic/stable Affect description: congruent with mood, full range, blunted Speech Volume: Normal Speech pattern: normal rate, normal rhythm, normal tone, fluent, limited, impoverished Language & Vocabulary: consistent with education, limited Thought Process: Tangential, Disorganized Thought Content: No Suicidal ideation, No Homicidal ideation, No Overt delusions Perceptual Disturbances: No Auditory hallucinations, No Visual hallucinations Attention Span Ability: Unable to Focus Memory Description: Grossly Intact Patient Reliability: Questionable Historian Fund of knowledge: Yes abstraction ability, Yes below average, Yes aware of current events Intelligence Estimate: Average Judgment: Limited Insight: Partial
[2017-12-15] MEDS: traZODone 50 MG TABLET PO PRN (20:13)
[2017-12-16] MEDS: GuaiFENesin/Pseudophedrine TABLET PO SCH ×2 (09:42→20:29)
[2017-12-16] MEDS: *HR* Rivaroxaban 10 MG TABLET PO SCH (09:42)
[2017-12-16] MEDS: NALTREXONE HCL 50 MG TABLET PO SCH (09:42)
[2017-12-16] MEDS: Divalproex (12 HR) 250 MG TABLET PO SCH ×2 (09:43→20:29)
[2017-12-16] MEDS: Nicotine 14 MG PATCH.TD24 TD SCH (09:43)
[2017-12-16] MEDS: hydrOXYzine pamoate 25 MG CAPSULE PO PRN ×2 (14:31→20:28)
[2017-12-16] MEDS: Acetaminophen 325 MG TABLET PO PRN ×2 (14:31→20:28)
--- NOTE | 2017-12-16 14:55 | Psychiatry Progress Note ---
Date of Encounter: 12/16/17 Time of Encounter: 14:52 Subjective Interval history: Patient was seen and discussed in treatment team. His discharge plans are incomplete due to lack of beds in facilities that will accept him. He is reported to be cooperative, pleasant, compliant with medication. No reports of agitation or internal stimulation. He is interactive with other patients and staff. His speech in conversation is logical and goal-directed. Review of Systems Psychiatric: Reports: anxiety, abnormal sleep pattern, auditory hallucinations, confusion, memory loss. Denies: suicidal ideation Results - Vital Signs Vital Signs: Temp Pulse Resp BP Pulse Ox 97.4 F L 83 18 111/75 94 12/16/17 09:00 12/15/17 19:42 12/15/17 19:42 12/15/17 19:42 12/02/17 15:33 - Impressions ITS Impressions Chest X-Ray 12/12/17 23:37 IMPRESSION: Negative portable chest. D/ / Duc Handy MD / Duc Handy MD Interpreting Provider: Duc Handy MD Assessment and Plan (1) Schizophrenia Current visit: No Status: Chronic Plan: Continue hospitalization, Close observation, Suicide Precautions per unit protocol, Encourage participation in unit milieu, Group Therapy, Monitor sleep, Monitor appetite Risks, benefits, side effects, alternatives discussed w/pt: Yes Patient agreeable to treatment: Yes Qualifiers: Schizophrenia type: disorganized schizophrenia Qualified Code(s): F20.1 - Disorganized schizophrenia Consult Discharge Plan - Plan Referrals: [facility] [Outside] - 12/24/17 11:00 am (The above appointment is with Racquel Blair for outpatient mental health counseling and case management services. You will also see Yaritza Ortiz for outpatient psychiatric assessment and medication management services on 01/25/2018 at 3:30pm.) Psychiatry Exam - Constitutional Vitals: Temp Pulse Resp BP Pulse Ox 97.4 F L 83 18 111/75 94 12/16/17 09:00 12/15/17 19:42 12/15/17 19:42 12/15/17 19:42 12/02/17 15:33 General appearance: age & developmentally appropriate, well-nourished, unkempt, obese - Musculoskeletal Gait: normal Station: relaxed Strength & Tone: normal for patient - Psychiatric Patient Orientation: Yes Person, Yes Time, Yes Place Level of alertness: Alert Behavior: calm, cooperative Psychomotor activity: Normal Eye Contact: Fleeting Contact Mood Description: Euthymic/stable Affect description: congruent with mood, full range Speech Volume: Normal Speech pattern: normal rate, normal rhythm, normal tone, fluent, spontaneous Language & Vocabulary: consistent with education Thought Process: Linear, Goal Oriented Thought Content: No Suicidal ideation, No Homicidal ideation, No Overt delusions Perceptual Disturbances: No Auditory hallucinations, No Visual hallucinations Attention Span Ability: Capable of Focused Attention Memory Description: Grossly Intact Patient Reliability: Questionable Historian Fund of knowledge: Yes abstraction ability, Yes aware of current events Intelligence Estimate: Average Judgment: Limited Insight: Partial
[2017-12-16] MEDS: traZODone 50 MG TABLET PO PRN (20:28)
[2017-12-17] MEDS: GuaiFENesin/Pseudophedrine TABLET PO SCH ×2 (09:08→20:41)
[2017-12-17] MEDS: *HR* Rivaroxaban 10 MG TABLET PO SCH (09:08)
[2017-12-17] MEDS: NALTREXONE HCL 50 MG TABLET PO SCH (09:08)
[2017-12-17] MEDS: Nicotine 14 MG PATCH.TD24 TD SCH (09:09)
[2017-12-17] MEDS: Divalproex (12 HR) 250 MG TABLET PO SCH ×2 (09:09→20:42)
[2017-12-17] MEDS: Acetaminophen 325 MG TABLET PO PRN ×2 (12:50→20:42)
[2017-12-17] MEDS: hydrOXYzine pamoate 25 MG CAPSULE PO PRN ×2 (12:50→20:43)
--- NOTE | 2017-12-17 14:25 | Psychiatry Progress Note ---
Date of Encounter: 12/17/17 Time of Encounter: 14:23 Subjective Interval history: Patient seen for follow-up. Case discussed with the treatment team. He is doing well no reports of agitation or delusional behavior or hallucinating. The compliant with medication and awaiting placement. Review of Systems Psychiatric: Reports: anxiety, abnormal sleep pattern, auditory hallucinations, confusion, memory loss. Denies: suicidal ideation Results - Vital Signs Vital Signs: Temp Pulse Resp BP Pulse Ox 97.6 F 87 18 125/91 94 12/17/17 09:00 12/17/17 13:53 12/17/17 13:53 12/17/17 13:53 12/02/17 15:33 - Impressions ITS Impressions Chest X-Ray 12/12/17 23:37 IMPRESSION: Negative portable chest. D/ / Duc Handy MD / Duc Handy MD Interpreting Provider: Duc Handy MD Assessment and Plan (1) Schizophrenia Current visit: No Status: Chronic Plan: Continue hospitalization, Close observation, Suicide Precautions per unit protocol, Encourage participation in unit milieu, Group Therapy, Monitor sleep, Monitor appetite Risks, benefits, side effects, alternatives discussed w/pt: Yes Patient agreeable to treatment: Yes Qualifiers: Schizophrenia type: disorganized schizophrenia Qualified Code(s): F20.1 - Disorganized schizophrenia Consult Discharge Plan - Plan Referrals: [facility] [Outside] - 12/24/17 11:00 am (The above appointment is with Racquel Blair for outpatient mental health counseling and case management services. You will also see Yaritza Ortiz for outpatient psychiatric assessment and medication management services on 01/25/2018 at 3:30pm.) Psychiatry Exam - Constitutional Vitals: Temp Pulse Resp BP Pulse Ox 97.6 F 87 18 125/91 94 12/17/17 09:00 12/17/17 13:53 12/17/17 13:53 12/17/17 13:53 12/02/17 15:33 General appearance: age & developmentally appropriate, well-groomed, well- nourished, obese - Musculoskeletal Gait: normal Station: relaxed Strength & Tone: normal for patient - Psychiatric Patient Orientation: Yes Person, Yes Time, Yes Place Level of alertness: Alert Behavior: calm, cooperative Psychomotor activity: Normal Eye Contact: Fleeting Contact Mood Description: Euthymic/stable Affect description: congruent with mood, full range Speech Volume: Normal Speech pattern: normal rate, normal rhythm, normal tone, fluent, spontaneous, limited, impoverished Language & Vocabulary: consistent with education, limited Thought Process: Linear, Goal Oriented Thought Content: No Suicidal ideation, No Homicidal ideation, No Overt delusions Perceptual Disturbances: No Auditory hallucinations, No Visual hallucinations Attention Span Ability: Capable of Focused Attention Memory Description: Grossly Intact Patient Reliability: Reliable Historian Fund of knowledge: Yes abstraction ability, Yes aware of current events Intelligence Estimate: Average Judgment: Limited Insight: Partial
[2017-12-17] MEDS: traZODone 50 MG TABLET PO PRN (20:41)
[2017-12-18] MEDS: Nicotine 14 MG PATCH.TD24 TD SCH (09:45)
[2017-12-18] MEDS: NALTREXONE HCL 50 MG TABLET PO SCH (09:46)
[2017-12-18] MEDS: *HR* Rivaroxaban 10 MG TABLET PO SCH (09:46)
[2017-12-18] MEDS: Divalproex (12 HR) 250 MG TABLET PO SCH ×2 (09:46→20:31)
[2017-12-18] MEDS: GuaiFENesin/Pseudophedrine TABLET PO SCH ×2 (09:46→20:31)
--- NOTE | 2017-12-18 12:41 | Psychiatry Progress Note ---
Date of Encounter: 12/18/17 Time of Encounter: 12:39 Subjective Interval history: Patient seen for follow-up. Case discussed with nursing staff. He is doing well denied any somatic complaints. Sleep and appetite are stable. No agitation or hallucination behavior. Compliant with medication. Teacher watching TV. Awaiting placement possibly next week. Review of Systems Psychiatric: Reports: anxiety, abnormal sleep pattern, auditory hallucinations, confusion, memory loss. Denies: suicidal ideation Results - Vital Signs Vital Signs: Temp Pulse Resp BP Pulse Ox 97.8 F 105 16 111/78 94 12/18/17 09:00 12/18/17 09:00 12/18/17 09:00 12/18/17 09:00 12/02/17 15:33 - Impressions ITS Impressions Chest X-Ray 12/12/17 23:37 IMPRESSION: Negative portable chest. D/ / Duc Handy MD / Duc Handy MD Interpreting Provider: Duc Handy MD Assessment and Plan (1) Schizophrenia Current visit: No Status: Chronic Plan: Continue hospitalization, Close observation, Suicide Precautions per unit protocol, Encourage participation in unit milieu, Group Therapy, Monitor sleep, Monitor appetite Risks, benefits, side effects, alternatives discussed w/pt: Yes Patient agreeable to treatment: Yes Qualifiers: Schizophrenia type: disorganized schizophrenia Qualified Code(s): F20.1 - Disorganized schizophrenia Consult Discharge Plan - Plan Referrals: [facility] [Outside] - 12/24/17 11:00 am (The above appointment is with Racquel Blair for outpatient mental health counseling and case management services. You will also see Yaritza Ortiz for outpatient psychiatric assessment and medication management services on 01/25/2018 at 3:30pm.) Psychiatry Exam - Constitutional Vitals: Temp Pulse Resp BP Pulse Ox 97.8 F 105 16 111/78 94 12/18/17 09:00 12/18/17 09:00 12/18/17 09:00 12/18/17 09:00 12/02/17 15:33 General appearance: age & developmentally appropriate, well-nourished, unkempt, bizarre, obese - Musculoskeletal Gait: normal Station: relaxed Strength & Tone: normal for patient - Psychiatric Patient Orientation: Yes Person, Yes Time, Yes Place Level of alertness: Alert Behavior: calm, cooperative, withdrawn Psychomotor activity: Normal Eye Contact: Fleeting Contact Mood Description: Euthymic/stable Affect description: congruent with mood, full range, anxious Speech Volume: Normal Speech pattern: normal rate, normal rhythm, normal tone, fluent, spontaneous, limited, impoverished Language & Vocabulary: consistent with education, limited Thought Process: Linear, Goal Oriented Thought Content: No Suicidal ideation, No Homicidal ideation, No Overt delusions Perceptual Disturbances: No Auditory hallucinations, No Visual hallucinations Attention Span Ability: Capable of Focused Attention Memory Description: Grossly Intact Patient Reliability: Reliable Historian Fund of knowledge: Yes abstraction ability, Yes aware of current events Intelligence Estimate: Average Judgment: Limited Insight: Partial
[2017-12-18] MEDS: Acetaminophen 325 MG TABLET PO PRN ×2 (12:47→20:29)
[2017-12-18] MEDS: hydrOXYzine pamoate 25 MG CAPSULE PO PRN ×2 (12:48→20:32)
[2017-12-18] MEDS: traZODone 50 MG TABLET PO PRN (20:32)
[2017-12-19] MEDS: Divalproex (12 HR) 250 MG TABLET PO SCH ×2 (09:21→20:38)
[2017-12-19] MEDS: Nicotine 14 MG PATCH.TD24 TD SCH (09:22)
[2017-12-19] MEDS: NALTREXONE HCL 50 MG TABLET PO SCH (09:22)
[2017-12-19] MEDS: GuaiFENesin/Pseudophedrine TABLET PO SCH ×2 (09:22→20:38)
[2017-12-19] MEDS: *HR* Rivaroxaban 10 MG TABLET PO SCH (09:24)
--- NOTE | 2017-12-19 12:45 | Psychiatry Progress Note ---
Date of Encounter: 12/19/17 Time of Encounter: 12:43 Subjective Interval history: Patient seen for follow-up. Case discussed with the nursing staff. He will continue to do well, no reports of hallucination or internus stimulation, no agitation or lethargy. Compliant with medication. with complaints. spent his time watching tv. Review of Systems Psychiatric: Reports: anxiety, abnormal sleep pattern, auditory hallucinations, confusion, memory loss. Denies: suicidal ideation Results - Vital Signs Vital Signs: Temp Pulse Resp BP Pulse Ox 98.4 F 107 18 104/76 94 12/19/17 09:00 12/19/17 09:00 12/19/17 09:00 12/19/17 09:00 12/02/17 15:33 - Impressions ITS Impressions Chest X-Ray 12/12/17 23:37 IMPRESSION: Negative portable chest. D/ / Duc Handy MD / Duc Handy MD Interpreting Provider: Duc Handy MD Assessment and Plan (1) Schizophrenia Current visit: No Status: Chronic Plan: Continue hospitalization, Close observation, Suicide Precautions per unit protocol, Encourage participation in unit milieu, Group Therapy, Monitor sleep, Monitor appetite Risks, benefits, side effects, alternatives discussed w/pt: Yes Patient agreeable to treatment: Yes Qualifiers: Schizophrenia type: disorganized schizophrenia Qualified Code(s): F20.1 - Disorganized schizophrenia Consult Discharge Plan - Plan Referrals: [facility] [Outside] - 12/24/17 11:00 am (The above appointment is with Racquel Blair for outpatient mental health counseling and case management services. You will also see Yaritza Ortiz for outpatient psychiatric assessment and medication management services on 01/25/2018 at 3:30pm.) Psychiatry Exam - Constitutional Vitals: Temp Pulse Resp BP Pulse Ox 98.4 F 107 18 104/76 94 12/19/17 09:00 12/19/17 09:00 12/19/17 09:00 12/19/17 09:00 12/02/17 15:33 General appearance: age & developmentally appropriate, well-nourished, unkempt, obese - Musculoskeletal Gait: normal Station: relaxed Strength & Tone: normal for patient - Psychiatric Patient Orientation: Yes Person, Yes Time, Yes Place Level of alertness: Alert Behavior: calm, cooperative Psychomotor activity: Normal Eye Contact: Maintains Eye Contact Mood Description: Euthymic/stable Affect description: congruent with mood, full range Speech Volume: Normal Speech pattern: normal rate, normal rhythm, normal tone, fluent, spontaneous, limited, impoverished Language & Vocabulary: consistent with education Thought Process: Linear, Goal Oriented, Tangential, [place] Thought Content: No Suicidal ideation, No Homicidal ideation, No Overt delusions Perceptual Disturbances: No Auditory hallucinations, No Visual hallucinations Attention Span Ability: Capable of Focused Attention Memory Description: Grossly Intact Patient Reliability: Reliable Historian Fund of knowledge: Yes abstraction ability, Yes aware of current events Intelligence Estimate: Average Judgment: Limited Insight: Partial
[2017-12-19] MEDS: Acetaminophen 325 MG TABLET PO PRN (17:23)
[2017-12-19] MEDS: hydrOXYzine pamoate 25 MG CAPSULE PO PRN (17:23)
[2017-12-20] MEDS: hydrOXYzine pamoate 25 MG CAPSULE PO PRN ×2 (01:20→10:22)
[2017-12-20] MEDS: traZODone 50 MG TABLET PO PRN ×2 (01:20→20:45)
[2017-12-20] MEDS: Mag Hydrox/Al Hydrox/Simeth 30 ML UDC PO PRN (03:53)
[2017-12-20] MEDS: *HR* Rivaroxaban 10 MG TABLET PO SCH (09:15)
[2017-12-20] MEDS: Divalproex (12 HR) 250 MG TABLET PO SCH ×2 (09:15→20:45)
[2017-12-20] MEDS: GuaiFENesin/Pseudophedrine TABLET PO SCH ×2 (09:15→20:44)
[2017-12-20] MEDS: NALTREXONE HCL 50 MG TABLET PO SCH (09:15)
[2017-12-20] MEDS: Nicotine 14 MG PATCH.TD24 TD SCH (09:16)
--- NOTE | 2017-12-20 10:06 | Psychiatry Progress Note ---
Date of Encounter: 12/20/17 Time of Encounter: 10:00 Subjective Interval history: The patient is known to me from the earlier period of admission. He is known to me from previous admissions. The patient has a history of noncompliance. The patient has escaped from a extended care facility. However without the medicine for anticoagulation he is likely to have a pulmonary embolism and . Consequently needs to be in a structured environment. Prior to this hospitalization he did not abuse drugs but in the past on probation he did abuse drugs of violation of his probation. He does not know the name of his loan servicing officer and says that he would go to meet with the loan servicing officer if there is scheduled appointment the patient is scheduled to go to the [facility] when a bed becomes available. He reports that on one occasion he was there for 13-14 days. The patient has no payee and says that he is paying his bills. He says his father is retired and sometimes he helps his father off his bills. However his benefits are not going to his care but rather to other sources. Therefore he will need a payee. The patient's medical condition is of significant concern and may benefit from having a legal guardian. The patient has signed a letter to his loan servicing officer and is agreed to allow us to write to the loan servicing officer both conditions of his probation and his new relocation. The patient reports no auditory hallucinations or delusions. He reports he is compliant with his medicines does not note any side effects or any needs change medicines. At this point we are focused on discharge planning. The patient is able to verbalize important concepts by does not seem to follow through. He has poor insight into the nature of his condition and the need for daily medicine. He has poor judgment regarding his finances and matters of medical health. He has a legal situation in which she needs to be monitored. He also on may need random drug screening to assure that he is not abusing substances. He needs to be compliant with his mental health follow-up through the mental health center as a condition of his probation Review of Systems Psychiatric: Reports: abnormal sleep pattern, confusion, memory loss, other (he had a nightmare last night and received vistaril). Denies: suicidal ideation Results - Vital Signs Vital Signs: Temp Pulse Resp BP Pulse Ox 97.8 F 88 18 110/84 94 12/20/17 08:56 12/20/17 08:56 12/20/17 08:56 12/20/17 08:56 12/02/17 15:33 - Drug Levels and Toxicology Drug Levels and Toxicology: Drug screen was negative - Impressions ITS Impressions Chest X-Ray 12/12/17 23:37 IMPRESSION: Negative portable chest. D/ / Duc Handy MD / Duc Handy MD Interpreting Provider: Duc Handy MD Assessment and Plan (1) Patient's noncompliance with other medical treatment and regimen Current visit: Yes Status: Acute Plan: Continue hospitalization, Close observation, Suicide Precautions per unit protocol, Encourage participation in unit milieu Risks, benefits, side effects , alternatives discussed w/pt: Yes Patient agreeable to treatment: Yes (2) Chronic schizophrenia Current visit: No Status: Chronic Plan: Continue hospitalization, Close observation, Encourage participation in unit milieu Risks, benefits, side effects, alternatives discussed w/pt: Yes Patient agreeable to treatment: Yes (3) Legal problem Current visit: No Status: Acute Plan: Close observation Risks, benefits, side effects, alternatives discussed w/pt: Yes Patient agreeable to treatment: Yes (4) DVT prophylaxis Current visit: No Status: Acute Plan: Continue hospitalization, Close observation, Encourage participation in unit milieu Risks, benefits, side effects, alternatives discussed w/pt: Yes Patient agreeable to treatment: Yes Consult Discharge Plan - Plan Referrals: [facility] [Outside] - 12/24/17 11:00 am (The above appointment is with Racquel Blair for outpatient mental health counseling and case management services. You will also see Yaritza Ortiz for outpatient psychiatric assessment and medication management services on 01/25/2018 at 3:30pm.) Psychiatry Exam - Constitutional Vitals: Temp Pulse Resp BP Pulse Ox 97.8 F 88 18 110/84 94 12/20/17 08:56 12/20/17 08:56 12/20/17 08:56 12/20/17 08:56 12/02/17 15:33 General appearance: unkempt, obese - Musculoskeletal Gait: normal Station: relaxed Strength & Tone: normal for patient - Psychiatric Patient Orientation: Yes Person, Yes Time, Yes Place, Yes Circumstance Level of alertness: Alert Behavior: withdrawn Psychomotor activity: Slowed Eye Contact: Maintains Eye Contact Mood Description: Euthymic/stable Affect description: blunted Speech Volume: Normal Speech pattern: limited, impoverished Language & Vocabulary: high school level Thought Process: [place] Thought Content: Yes Poverty of Content Attention Span Ability: Capable of Sustained Attention Memory Description: Grossly Intact Patient Reliability: Not Reliable Historian Fund of knowledge: Yes below average Judgment: Poor Insight: Minimal
[2017-12-20] MEDS: Acetaminophen 325 MG TABLET PO PRN ×2 (10:22→20:44)
[2017-12-21] MEDS: GuaiFENesin/Pseudophedrine TABLET PO SCH (08:21)
[2017-12-21] MEDS: NALTREXONE HCL 50 MG TABLET PO SCH (08:22)
[2017-12-21] MEDS: Nicotine 14 MG PATCH.TD24 TD SCH (08:22)
[2017-12-21] MEDS: *HR* Rivaroxaban 10 MG TABLET PO SCH (08:22)
[2017-12-21] MEDS: Divalproex (12 HR) 250 MG TABLET PO SCH (08:22)
[2017-12-21 08:35] VITALS: BP 110/79
--- NOTE | 2017-12-21 10:26 | Discharge Summary ---
Date of Encounter: 12/21/17 Time of Encounter: 10:30 Diagnosis - Discharge Diagnosis (1) Patient's noncompliance with other medical treatment and regimen Priority: Secondary Status: Chronic (2) Chronic schizophrenia Priority: Primary Status: Acute (3) Legal problem Priority: Secondary Status: Chronic (4) DVT prophylaxis Priority: Secondary Status: Chronic (5) Personal history of other specified conditions Status: Chronic (6) Chest pain on breathing Status: Resolved (7) Other pulmonary embolism without acute cor pulmonale Status: Resolved Qualifiers: Chronicity: chronic Qualified Code(s): I27.82 - Chronic pulmonary embolism Medications - Discharge Medications Prescriptions: Benztropine [Cogentin] 1 mg PO BID 30 Days #60 tablet Divalproex (12 HR) [Depakote (12 HR)] 250 mg PO BID 30 Days #60 tablet.dr Medrano/Pseudophedrine [Mucinex D] 1 each PO BID 30 Days #60 tab.er.12h hydrOXYzine pamoate [HydrOXYzine Pamoate] 25 mg PO TID PRN 30 Days #90 capsule PRN Reason: Anxiety Lisinopril [Zestril] 5 mg PO DAILY 30 Days #30 tablet Lurasidone [Latuda] 120 mg PO DAILY 30 Days #30 tablet Naltrexone HCl 50 mg PO DAILY 30 Days #30 tablet Propranolol [Inderal] 20 mg PO BID 30 Days #60 tablet Quetiapine Fumarate [Seroquel] 400 mg PO HS 30 Days #30 tablet Rivaroxaban [Xarelto] 20 mg PO DAILY 30 Days #30 tablet Benztropine [Cogentin] 1 mg PO BID 30 Days #60 tablet 12/21/17 [Rx] Divalproex (12 HR) [Depakote (12 HR)] 250 mg PO BID 30 Days #60 tablet. [Rx] LaciaiFENesin/Pseudophedrine [Mucinex D] 1 each PO BID 30 Days #60 tab.er.12h [Rx] Lisinopril [Zestril] 5 mg PO DAILY 30 Days #30 tablet 12/21/17 [Rx] Lurasidone [Latuda] 120 mg PO DAILY 30 Days #30 tablet 12/21/17 [Rx] Naltrexone HCl 50 mg PO DAILY 30 Days #30 tablet 12/21/17 [Rx] Propranolol [Inderal] 20 mg PO BID 30 Days #60 tablet 12/21/17 [Rx] Quetiapine Fumarate [Seroquel] 400 mg PO HS 30 Days #30 tablet 12/21/17 [Rx] Rivaroxaban [Xarelto] 20 mg PO DAILY 30 Days #30 tablet 12/21/17 [Rx] hydrOXYzine pamoate [HydrOXYzine Pamoate] 25 mg PO TID PRN 30 Days #90 capsule 12/21/17 [Rx] 3 Allergy/AdvReac Type Severity Reaction Status Date / Time No Known Allergies Allergy Verified 06/01/17 14:51 Results Procedures and tests throughout hospitalization: Completed Lab Orders Category Date Time Status Troponin I Routine Lab 12/13/17 05:35 Completed Troponin I Stat Lab 12/12/17 23:25 Completed Completed Imaging Orders Category Date Time Status XR chest 1V [XR] Stat Exams 12/12/17 23:37 Completed Provider Date of admission: 12/02/17 19:43 Primary care physician: PCP NONE Consults: 12/12/17 22:31 Consult to Hospitalist [CONS] Stat Consulting Provider: Hospitalist Valente Reason for Consult: Chest pain Call Completed: Yes Discharging clinician: Martin Bailon Psychiatry Exam - Constitutional Vitals: Temp Pulse Resp BP Pulse Ox 97.8 F 107 16 110/79 94 12/21/17 08:33 12/21/17 08:33 12/21/17 08:33 12/21/17 08:33 12/02/17 15:33 General appearance: age & developmentally appropriate, disheveled, obese - Musculoskeletal Gait: normal Station: relaxed Strength & Tone: normal for patient - Psychiatric Patient Orientation: Yes Person, Yes Time, Yes Place, Yes Circumstance Level of alertness: Alert Behavior: calm Psychomotor activity: Slowed Eye Contact: Maintains Eye Contact Mood Description: Euthymic/stable Affect description: blunted Speech Volume: Normal Speech pattern: slowed, monotone Language & Vocabulary: limited, grade school level Thought Process: Slowed Thinking Thought Content: Yes Poverty of Content Attention Span Ability: Capable of Sustained Attention Memory Description: Grossly Intact Patient Reliability: Questionable Historian Fund of knowledge: Yes below average Intelligence Estimate: Average Judgment: Poor Insight: Minimal Hospital Course Hospital course: Mr. Miller is a 37 year old male He was admitted on December 022017. He continued on the current medicines. The patient patient had been admitted on 12/02/2017 this is one of multiple admissions for this patient. This patient has been hospitalized multiple times in the reader is referred to the previous discharge summaries. To briefly summarize the patient was continued on his current medicines he has a history of polysubstance abuse of multiple substances but had a clean drug screen on admission. The patient had a history of noncompliance and this led to his hospitalization at this time. The patient has several legal problems. He has had legal charges and was presumed to be competent to stand trial. He has a sports development officer. He does not have a payee and is incapable of handling his funds. He has multiple medical problems and his psychosis may interfere with his decision-making capacity. This patient remains on 2 antipsychotics because of a history of possible NMS neuroleptic malignant syndrome. The concern was that if started on clozapine she might develop significant worsening. Patient has a history of pulmonary embolism and he developed chest pain while unit an internal medicine consult was obtained. The patient was found not to have that but was recommended to remain on anticoagulant therapy. The patient was able to be accepted into the [facility]. Where he will reside. He was evaluated for [facility] in [facility] but was not felt to be a candidate for that hospital at this time patient was relatively free of psychosis at the time of discharge although he has prominent negative symptoms poor self-care poor decision-making capacity and impaired insight. The patient did consent to a letter that will be sent to his sports development officer in [facility]. He is required to meet with his sports development officer submit random drug screens avoid drugs of abuse and comply with his mental health as a condition of his probation. His was explained to the patient prior to discharge. Time spent discussing smoking cessation with patient: 3 to 10 minutes Does patient wish to continue nicotine replacement upon disc: No - Time Spent with Patient Total time spent providing and/or coordinating discharge services: Less than 30 minutes Assessment and Plan - Patient/Caregiver Discharge Instructions Activity: resume usual activities as tolerated Diet: regular diet - Follow up Plan Follow up with: [facility] [Outside] - 12/24/17 11:00 am (The above appointment is with Racquel Blair for outpatient mental health counseling and case management services. You will also see Yaritza Ortiz for outpatient psychiatric assessment and medication management services on 01/25/2018 at 3:30pm.) Mat Velasquez, PAC [Physician [facility] Washer] - 12/27/17 3:20 pm (The above appointment is with JERMAINE Fernandez, at Primary [facility] within [facility]. This appointment is to establish you with a primary care provider. Your needs for medication and/or Vivitrol will be assessed and treated as indicated as well. Please arrive 15 minutes early to complete paperwork. Please bring your insurance card, photo ID and list of current medications to your first appointment. The above appointment(s) reflects first availability. You may contact the office regularly to check for cancellations that may allow you to be seen sooner.) Functional capacity at discharge: independent ambulation Overall status at discharge: patient is back to baseline Disposition: Transfer Other Quality - Multiple Antipsychotics Patient discharged on 2 or more antipsychotic medications: Yes - Justification Documentation of: History 3 failed trials of monotherapy - Additional Details Additional Details: See discharge summary Procedures - Procedures Procedures: Medication Management, Crisis Stabilization, Supportive Therapy, Group Therapy, Psychoeducational Therapy
[2017-12-21] MEDS: hydrOXYzine pamoate 25 MG CAPSULE PO PRN (11:33)
[2017-12-21] MEDS: Acetaminophen 325 MG TABLET PO PRN (11:33)
== END 2017-12-21 14:40 | disposition other institution (70) | DRG 750 ==
LOC: EMEROO 10:46 → 1ANU 19:43 → SUATTDRO 19:43 → 1ANU 20:00
PROVIDERS: ADMIT Student in an Organized Health Care Education/Training Program; ATTEND Psychiatry & Neurology Forensic Psychiatry

== ENCOUNTER 2018-05-06 03:42 | Observation (INO) ==
--- NOTE | 2018-05-06 03:52 | Emergency Department Note ---
Disposition Clinical Impression: YOVANI (acute kidney injury) Disposition: Still a Patient Condition: Good Referrals: NONE,PCP [Primary Care Provider] - Forms: Work/School Release, ED Satisfaction Letter General Adult HPI - General Chief complaint: ED General Medical Time Seen by Provider: 05/06/18 03:46 Source: EMS Mode of arrival: EMS Limitations: language barrier Nursing Notes Reviewed: Yes Vital Signs Reviewed: Yes - History of Present Illness HPI Narrative: 37-year-old male known to this department with a history of schizophrenia presents to the ER via EMS [place] the [place]. EMS states someone came across him and he was making much sense. EMS was then called and he was brought in for evaluation. The patient is well-known to our department with a history of schizophrenia with limited verbal interaction. History is severely limited secondary to the patient's compliance. Unable to gather any additional information. He presents disheveled holding a cigar, a sandwich and covered in urine stained clothing. Pt Subjective Complaint: Found in the park Onset (ago): unknown - Related Data Previous Rx's Medication Instructions Recorded Benztropine [Cogentin] 1 mg PO BID 30 Days #60 tablet 12/21/17 Divalproex (12 HR) [Depakote (12 250 mg PO BID 30 Days #60 tablet.dr 12/21/17 HR)] GuaiFENesin/Pseudophedrine 1 each PO BID 30 Days #60 12/21/17 [Mucinex D] tab.er.12h Lisinopril [Zestril] 5 mg PO DAILY 30 Days #30 tablet 12/21/17 Lurasidone [Latuda] 120 mg PO DAILY 30 Days #30 tablet 12/21/17 Naltrexone HCl 50 mg PO DAILY 30 Days #30 tablet 12/21/17 Propranolol [Inderal] 20 mg PO BID 30 Days #60 tablet 12/21/17 Quetiapine Fumarate [Seroquel] 400 mg PO HS 30 Days #30 tablet 12/21/17 Rivaroxaban [Xarelto] 20 mg PO DAILY 30 Days #30 tablet 12/21/17 hydrOXYzine pamoate [HydrOXYzine 25 mg PO TID PRN 30 Days #90 12/21/17 Pamoate] capsule Cefdinir [Omnicef] 300 mg PO DAILY #7 capsule 12/31/17 Allergies Allergy/AdvReac Type Severity Reaction Status Date / Time No Known Allergies Allergy Verified 04/19/18 13:34 Limitations: ROS unobtainable due to patients medical condition Past Medical History - Past Medical History Attestation: Yes The following information was validated with the patient. Source: obtained from family Medical history: Reports: hypertension Surgical history: Reports: appendectomy, arthroscopy Psychiatric history: Reports: schizophrenia, previous psychiatric hospitalization - Social History Smoking Status: Current every day smoker Smokeless Tobacco Status: No Alcohol use: Reports: occasionally Drug use: Reports: cocaine, marijuana, methamphetamine Physical Exam - General Limitations: language barrier, altered mental status General appearance: alert, in no apparent distress - Head Head exam: atraumatic, normocephalic - Eye Eye exam: Present: normal appearance - ENT ENT exam: normal exam - Neck Neck exam: Present: normal inspection - Chest Chest inspection: Present: normal inspection, symmetric chest wall rise - Respiratory Respiratory exam: Present: normal lung sounds bilaterally - Cardiovascular Cardiovascular exam: Present: regular rate, normal rhythm, normal heart sounds - Extremities Exam Extremities exam: Present: normal inspection, full ROM - Expanded Upper Extremity Exam Shoulder exam: Present: normal inspection, full ROM Arm exam: Present: normal inspection, full ROM Elbow exam: Present: normal inspection, full ROM Forearm/Wrist exam: Present: normal inspection, full ROM Hand exam: Present: normal inspection, full ROM - Expanded Lower Extremity Exam Hip/Pelvis exam: Present: normal inspection, full ROM Upper leg exam: Present: normal inspection, full ROM Knee exam: Present: normal inspection, full ROM Lower leg exam: Present: normal inspection, full ROM Ankle exam: Present: normal inspection, full ROM Foot/toe exam: Present: normal inspection, full ROM - Neurological Exam Neurological exam: Present: alert Course Course Narrative: Patient seen and examined. Vital signs reviewed. He does have some rhythmic motion of his tongue here. No one seems to remember this when he was last here. Given the fact that he is on multiple anti-dopaminergic's we will give him a dose of Cogentin. We will also get labs for medical clearance for psychiatric evaluation. Vital Signs Temperature 99.4 F 05/06/18 04:26 Pulse Rate 95 05/06/18 04:26 Respiratory Rate 18 05/06/18 04:26 Blood Pressure 148/106 05/06/18 04:26 O2 Sat by Pulse Oximetry 95 05/06/18 04:26 Temperature 99.4 F 05/06/18 04:26 Pulse Rate 95 05/06/18 04:26 Respiratory Rate 18 05/06/18 04:26 Blood Pressure 148/106 05/06/18 04:26 O2 Sat by Pulse Oximetry 95 05/06/18 04:26 Oxygen Delivery Oxygen Delivery Room Air Medical Decision Making - MDM Narrative Medical decision making narrative: 37-year-old male presents being [place] the park. He appears to be at his baseline mental status. He did have some intermittent tongue fasciculations here. During his workup is noted to have an acute kidney injury. CK is only slightly elevated. We are currently awaiting urinalysis at the time of sign out. He will likely require admission to the medicine service with psychiatric consultation. - Lab Data Lab results reviewed: Yes I reviewed the patient's lab results. Result diagrams: 05/06/18 04:30 05/06/18 04:30 Lab Results 05/06/18 05/06/18 05/06/18 Range/Units 04:30 04:30 04:30 WBC 17.4 H (4.3-11.1) K/mcL RBC 5.36 (4.19-5.50) M/mcL Hgb 16.6 (12.9-16.9) g/dL Hct 48.4 (37.5-50.1) % MCV 90.3 (83.0-100.0) fL MCH 31.0 (28.0-33.3) pg MCHC 34.3 (31.6-35.5) g/dL RDW 13.2 (11.5-14.5) % Plt Count 464 H (140-400) K/mcL MPV 11.1 (9.4-12.4) fL Immature Gran % 0.4 (0-4) % Seg Neutrophils % 76.8 % Lymphocytes % 10.5 % Monocytes % 11.9 % Eosinophils % 0.1 % Basophils % 0.3 % Neutrophils # 13.3 H (1.6-8.9) K/mcL Lymphocytes # 1.8 (0.6-4.6) K/mcL Monocytes # 2.1 H (0.0-1.3) K/mcL Eosinophils # 0.0 (0.0-0.6) K/mcL Basophils # 0.1 (0.0-0.2) K/mcL Sodium 142 (136-145) mEq/L Potassium 4.3 (3.5-5.1) mEq/L Chloride 111 H (98-107) mEq/L Carbon Dioxide 16 L (23-29) mEq/L BUN 30 H (6-20) mg/dL Creatinine 2.10 H (0.70-1.30) mg/dL Est GFR ( Amer) 44 L (> 60) Est GFR (Non-Af Amer) 36 L (> 60) BUN/Creatinine Ratio 14 (6-26) Glucose 151 H (70-105) mg/dL Calculated Osmolality 303 H (280-300) Calcium 10.5 H (8.6-10.3) mg/dL Creatine Kinase 253 H (30-223) Units/L TSH 2.848 (0.340-5.600) mcIU/mL Salicylates < 2.5 L (15.0-30.0) mg/dL Acetaminophen < 10 L (10-20) mcg/mL Valproic Acid 4 L (50-100) mcg/mL Ethyl Alcohol < 10 (Less than 10) mg/dL - Radiology Data Radiology results reviewed: Yes I reviewed the patient's radiology results. S.B.A.R. - S.B.A.R. Situation: Demographics, MOA Background: Presenting Complaint, Relevant PMH, Meds, & Allergies Assessment: Vital Signs, Course and respsone to treatment, Exam Concerns, Patient/Family Expectation, Pertinant Lab Results Recommendation: Barrier(s) to disposition, Recommendation based on pending studies, treatments, or consults S.B.A.R. Report Given to: Drs. Cerrato/Trip
[2018-05-06 04:58] LABS: Basophils # 0.1 K/mcL (0.0-0.2); Basophils % 0.3 %; Eosinophils % 0.1 %; Hematocrit 48.4 % (37.5-50.1); Hemoglobin 16.6 g/dL (12.9-16.9); Immature Granulocytes % 0.4 % (0-4); Lymphocytes # 1.8 K/mcL (0.6-4.6); Lymphocytes % 10.5 %; Mean Corpuscular HGB Conc 34.3 g/dL (31.6-35.5); Mean Corpuscular Volume 90.3 fL (83.0-100.0); Mean Platelet Volume 11.1 fL (9.4-12.4); Monocytes # 2.1 K/mcL (0.0-1.3); Monocytes % 11.9 %; Neutrophils # 13.3 K/mcL (1.6-8.9); Platelet Count 464 K/mcL (140-400); Red Blood Count 5.36 M/mcL (4.19-5.50); Red Cell Distribution Width 13.2 % (11.5-14.5); Segmented Neutrophils % 76.8 %
[2018-05-06 05:17] LABS: Acetaminophen < 10 mcg/mL (10-20); BUN/Creatinine Ratio 14 (6-26); Blood Urea Nitrogen 30 mg/dL (6-20); Calcium 10.5 mg/dL (8.6-10.3); Carbon Dioxide 16 mEq/L (23-29); Chloride 111 mEq/L (98-107); Ethanol < 10 mg/dL (Less than 10); Glucose 151 mg/dL (70-105); Osmolality,Calculated 303 (280-300); Potassium 4.3 mEq/L (3.5-5.1); Salicylate < 2.5 mg/dL (15.0-30.0); Sodium 142 mEq/L (136-145); eGFR For Non-African Americans 36 (> 60)
[2018-05-06 05:30] LABS: Thyroid Stimulating Hormone 2.848 mcIU/mL (0.340-5.600)
[2018-05-06 05:48] LABS: Creatine Kinase 253 Units/L (30-223)
[2018-05-06] MEDS ORDERED: 0.9 % Sodium Chloride 1,000 ML IVC ONE (06:37)
--- NOTE | 2018-05-06 06:51 | Emergency Department Note ---
Disposition Clinical Impression: YOVANI (acute kidney injury) Disposition: Still a Patient Condition: Good Referrals: NONE,PCP [Primary Care Provider] - Forms: ED Satisfaction Letter, Work/School Release General Adult HPI - General Chief complaint: ED Altered Mental Status Stated complaint: AMS/psych? Time Seen by Provider: 05/06/18 03:46 Source: EMS Mode of arrival: EMS Limitations: language barrier, altered mental status Nursing Notes Reviewed: Yes Vital Signs Reviewed: Yes - History of Present Illness Pain Scale: 0 - Related Data Previous Rx's Medication Instructions Recorded Benztropine [Cogentin] 1 mg PO BID 30 Days #60 tablet 12/21/17 Divalproex (12 HR) [Depakote (12 250 mg PO BID 30 Days #60 tablet.dr 12/21/17 HR)] GuaiFENesin/Pseudophedrine 1 each PO BID 30 Days #60 12/21/17 [Mucinex D] tab.er.12h Lisinopril [Zestril] 5 mg PO DAILY 30 Days #30 tablet 12/21/17 Lurasidone [Latuda] 120 mg PO DAILY 30 Days #30 tablet 12/21/17 Naltrexone HCl 50 mg PO DAILY 30 Days #30 tablet 12/21/17 Propranolol [Inderal] 20 mg PO BID 30 Days #60 tablet 12/21/17 Quetiapine Fumarate [Seroquel] 400 mg PO HS 30 Days #30 tablet 12/21/17 Rivaroxaban [Xarelto] 20 mg PO DAILY 30 Days #30 tablet 12/21/17 hydrOXYzine pamoate [HydrOXYzine 25 mg PO TID PRN 30 Days #90 12/21/17 Pamoate] capsule Cefdinir [Omnicef] 300 mg PO DAILY #7 capsule 12/31/17 Allergies Allergy/AdvReac Type Severity Reaction Status Date / Time No Known Allergies Allergy Verified 04/19/18 13:34 Past Medical History - Past Medical History Medical history: Reports: hypertension Surgical history: Reports: appendectomy, arthroscopy Psychiatric history: Reports: schizophrenia, previous psychiatric hospitalization - Social History Smoking Status: Current every day smoker Smokeless Tobacco Status: No Alcohol use: Reports: occasionally Drug use: Reports: cocaine, marijuana, methamphetamine Physical Exam - General Limitations: language barrier, altered mental status General appearance: alert, in no apparent distress Course Vital Signs Temperature 99.4 F 05/06/18 04:26 Pulse Rate 95 05/06/18 04:26 Respiratory Rate 05/06/18 04:26 Blood Pressure 148/106 05/06/18 04:26 O2 Sat by Pulse Oximetry 95 05/06/18 04:26 Temperature 99.4 F 05/06/18 04:26 Pulse Rate 95 05/06/18 04:26 Respiratory Rate 18 05/06/18 04:26 Blood Pressure 148/106 05/06/18 04:26 O2 Sat by Pulse Oximetry 05/06/18 04:26 Oxygen Delivery Oxygen Delivery Room Air Medical Decision Making - Lab Data Lab results reviewed: Yes I reviewed the patient's lab results. Result diagrams: 05/06/18 04:30 05/06/18 04:30 Lab Results 05/06/18 05/06/18 05/06/18 Range/Units 04:30 04:30 04:30 WBC 17.4 H (4.3-11.1) K/mcL RBC 5.36 (4.19-5.50) M/mcL Hgb 16.6 (12.9-16.9) g/dL Hct 48.4 (37.5-50.1) % MCV 90.3 (83.0-100.0) fL MCH 31.0 (28.0-33.3) pg MCHC 34.3 (31.6-35.5) g/dL RDW 13.2 (11.5-14.5) % Plt Count 464 H (140-400) K/mcL MPV 11.1 (9.4-12.4) fL Immature Gran % 0.4 (0-4) % Seg Neutrophils % 76.8 % Lymphocytes % 10.5 % Monocytes % 11.9 % Eosinophils % 0.1 % Basophils % 0.3 % Neutrophils # 13.3 H (1.6-8.9) K/mcL Lymphocytes # 1.8 (0.6-4.6) K/mcL Monocytes # 2.1 H (0.0-1.3) K/mcL Eosinophils # 0.0 (0.0-0.6) K/mcL Basophils # 0.1 (0.0-0.2) K/mcL Sodium 142 (136-145) mEq/L Potassium 4.3 (3.5-5.1) mEq/L Chloride 111 H (98-107) mEq/L Carbon Dioxide 16 L (23-29) mEq/L BUN 30 H (6-20) mg/dL Creatinine 2.10 H (0.70-1.30) mg/dL Est GFR ( Amer) 44 L (> 60) Est GFR (Non-Af Amer) 36 L (> 60) BUN/Creatinine Ratio 14 (6-26) Glucose 151 H (70-105) mg/dL Calculated Osmolality 303 H (280-300) Calcium 10.5 H (8.6-10.3) mg/dL Creatine Kinase 253 H (30-223) Units/L TSH 2.848 (0.340-5.600) mcIU/mL Salicylates < 2.5 L (15.0-30.0) mg/dL Acetaminophen < 10 L (10-20) mcg/mL Valproic Acid 4 L (50-100) mcg/mL Ethyl Alcohol < 10 (Less than 10) mg/dL - Radiology Data Radiology results reviewed: Yes I reviewed the patient's radiology results. Chest X-Ray 05/06/18 05:51 IMPRESSION: No focal airspace consolidation or pulmonary vascular congestion. D/ / Gurwinder Caputo / Gurwinder Caputo Interpreting Provider: Gurwinder Caputo Attestation Statement - Attestation Attestation: I, Kris Tanner MD, personally evaluated this patient and discussed their management with the resident physician. I reviewed the resident's note and agree with the documented findings, medical decision making, and plan of care. 37-year-old male with history of schizophrenia who is well-known and seen here frequently presents to the emergency department by ambulance after he was found just wandering in a park and would not talk. This actually is not unusual for this patient. Patient is having some tardive dyskinesia type movements of the tongue and lips which is not typical for him. Unable to really obtain any significant history or review of systems from patient due to his mental condition. On examination patient is a well-developed well-nourished large male in no acute distress. He is alert. No cyanosis or diaphoresis. Patient is very dirty and unkempt. Breath sounds are clear and equal bilaterally. Heart regular. Abdomen soft with present bowel sounds. Chest x-ray negative. Labs reveal a leukocytosis and acute kidney injury. At shift change patient is still pending a urinalysis and also a CT of the head. Patient signed out to the oncoming dayshift team, Dr. Cerrato, and Dr. Roque Dominique.
[2018-05-06 07:19] LABS: Alanine Aminotransferase 58 Units/L (7-52); Albumin 5.3 g/dL (3.5-5.7); Albumin/Globulin Ratio 1.4 (1.1-2.2); Alkaline Phosphatase 103 Units/L (34-104); Aspartate Amino Transferase 38 Units/L (13-39); Bilirubin,Direct 0.3 mg/dL (0.0-0.2); Bilirubin,Indirect 0.7 mg/dL (0.0-1.2); Globulin 3.7 g/dL (2.4-3.5)
--- NOTE | 2018-05-06 07:40 | Emergency Department Note ---
Disposition Clinical Impression: YOVANI (acute kidney injury), Tardive dyskinesia Disposition: Admitted As Inpatient Condition: Undetermined Time of Disposition: 07:42 Altered Mental Status HPI - General Chief Complaint: ED Altered Mental Status Stated Complaint: AMS/psych? Time Seen by Provider: 05/06/18 03:46 Source: EMS Mode of arrival: EMS Limitations: language barrier, altered mental status Nursing Notes Reviewed: Yes Vital Signs Reviewed: Yes - History of Present Illness HPI Narrative: Patient care signed out by the night team. Briefly, this is a 37-year-old male with extensive history of psychosis that was found wandering in the park overnight. Patient was brought in for evaluation and discovered to be experiencing symptoms consistent with tardive dyskinesias. The patient is currently on numerous antipsychotics. He does not have an acute kidney injury. Given the patient's acute kidney injury and tardive dyskinesias, the patient was given IV hydration and Cogentin. The patient will be admitted to the hospitalist at this time. The patient was accepted by Dr. Stroud. Psychiatry was consulted. The patient was made aware and agrees to plan. - Related Data Previous Rx's Medication Instructions Recorded Benztropine [Cogentin] 1 mg PO BID 30 Days #60 tablet 12/21/17 Divalproex (12 HR) [Depakote (12 250 mg PO BID 30 Days #60 tablet. 12/21/17 HR)] Lisinopril [Zestril] 5 mg PO DAILY 30 Days #30 tablet 12/21/17 Lurasidone [Latuda] 120 mg PO DAILY 30 Days #30 tablet 12/21/17 Naltrexone HCl 50 mg PO DAILY 30 Days #30 tablet 12/21/17 Propranolol [Inderal] 20 mg PO BID 30 Days #60 tablet 12/21/17 Quetiapine Fumarate [Seroquel] 400 mg PO HS 30 Days #30 tablet 12/21/17 Rivaroxaban [Xarelto] 20 mg PO DAILY 30 Days #30 tablet 12/21/17 hydrOXYzine pamoate [HydrOXYzine 25 mg PO TID PRN 30 Days #90 12/21/17 Pamoate] capsule Allergies Allergy/AdvReac Type Severity Reaction Status Date / Time No Known Allergies Allergy Verified 04/19/18 13:34 Limitations: ROS unobtainable due to patients medical condition Past Medical History - Past Medical History Source: old records reviewed Medical history: Reports: hypertension Surgical history: Reports: appendectomy, arthroscopy Psychiatric history: Reports: schizophrenia, previous psychiatric hospitalization - Social History Smoking Status: Current every day smoker Smokeless Tobacco Status: No Alcohol use: Reports: occasionally Drug use: Reports: cocaine, marijuana, methamphetamine Physical Exam - General Limitations: language barrier, altered mental status General appearance: alert, in no apparent distress - Head Head exam: atraumatic, normocephalic, normal inspection - Eye Eye exam: Present: normal appearance, PERRL, EOMI - ENT ENT exam: normal exam, normal oropharynx, mucous membranes moist - Neck Neck exam: Present: normal inspection, full ROM, trachea midline - Chest Chest inspection: Present: normal inspection, symmetric chest wall rise - Respiratory Respiratory exam: Absent: respiratory distress - Cardiovascular Cardiovascular exam: Present: regular rate - Extremities Exam Extremities exam: Present: normal inspection, full ROM. Absent: tenderness, pedal edema - Neurological Exam Neurological exam: Present: alert, other (Patient experiencing tardive dyskinesia with lip smacking and licking his lips constantly) - Psychiatric Psychiatric exam: Present: flat affect - Skin Skin exam: Present: warm Course Vital Signs Temperature 99.4 F 05/06/18 04:26 Pulse Rate 95 05/06/18 04:26 Respiratory Rate 18 05/06/18 04:26 Blood Pressure 148/106 05/06/18 04:26 O2 Sat by Pulse Oximetry 95 05/06/18 04:26 Temperature 99.6 F 05/06/18 08:53 Pulse Rate 121 05/06/18 08:53 Respiratory Rate 22 05/06/18 08:53 Blood Pressure 164/119 05/06/18 08:53 O2 Sat by Pulse Oximetry 96 05/06/18 08:53 Oxygen Delivery Oxygen Delivery Room Air Altered Mental Status - Lab Data Result diagrams: 05/06/18 04:30 05/06/18 04:30 Lab Results 05/06/18 05/06/18 05/06/18 Range/Units 04:30 04:30 04:30 WBC 17.4 H (4.3-11.1) K/mcL RBC 5.36 (4.19-5.50) M/mcL Hgb 16.6 (12.9-16.9) g/dL Hct 48.4 (37.5-50.1) % MCV 90.3 (83.0-100.0) fL MCH 31.0 (28.0-33.3) pg MCHC 34.3 (31.6-35.5) g/dL RDW 13.2 (11.5-14.5) % Plt Count 464 H (140-400) K/mcL MPV 11.1 (9.4-12.4) fL Immature Gran % 0.4 (0-4) % Seg Neutrophils % 76.8 % Lymphocytes % 10.5 % Monocytes % 11.9 % Eosinophils % 0.1 % Basophils % 0.3 % Neutrophils # 13.3 H (1.6-8.9) K/mcL Lymphocytes # 1.8 (0.6-4.6) K/mcL Monocytes # 2.1 H (0.0-1.3) K/mcL Eosinophils # 0.0 (0.0-0.6) K/mcL Basophils # 0.1 (0.0-0.2) K/mcL Sodium 142 (136-145) mEq/L Potassium 4.3 (3.5-5.1) mEq/L Chloride 111 H (98-107) mEq/L Carbon Dioxide 16 L (23-29) mEq/L BUN 30 H (6-20) mg/dL Creatinine 2.10 H (0.70-1.30) mg/dL Est GFR ( Amer) 44 L (> 60) Est GFR (Non-Af Amer) 36 L (> 60) BUN/Creatinine Ratio 14 (6-26) Glucose 151 H (70-105) mg/dL Calculated Osmolality 303 H (280-300) Calcium 10.5 H (8.6-10.3) mg/dL Total Bilirubin 1.0 (0.3-1.0) mg/dL Direct Bilirubin 0.3 H (0.0-0.2) mg/dL Indirect Bilirubin 0.7 (0.0-1.2) mg/dL AST 38 (13-39) Units/L ALT 58 H (7-52) Units/L Alkaline Phosphatase 103 (34-104) Units/L Creatine Kinase 253 H (30-223) Units/L Serum Total Protein 9.0 H (6.4-8.9) g/dL Albumin 5.3 (3.5-5.7) g/dL Globulin 3.7 H (2.4-3.5) g/dL Albumin/Globulin Ratio 1.4 (1.1-2.2) TSH 2.848 (0.340-5.600) mcIU/mL Salicylates < 2.5 L (15.0-30.0) mg/dL Acetaminophen < 10 L (10-20) mcg/mL Valproic Acid 4 L (50-100) mcg/mL Ethyl Alcohol < 10 (Less than 10) mg/dL Attestation Statement - Attestation Attestation: I, Roque Dominique, examined this patient and my medical decision-making was reviewed with the SALESPERSON JEWELRY/PA/Advanced Practice Nurse/Resident Physician. I agree with the documented findings, disposition and treatment plan as described except to the extent set forth below. 37-year-old male received in signout pending admission to the hospitalist for further care and evaluation. Patient has a long history of psychiatric disorder , he was found with altered mental status during the night, he has signs of possible side effect from his medication. Patient has acute kidney injury on laboratory evaluation. He will be admitted to the hospital for further care and evaluation.
--- NOTE | 2018-05-06 09:17 | Internal Med History&Physical ---
Date of Encounter: 05/06/18 Time of Encounter: 08:00 Internal Medicine - H&P: HPI Chief complaint: Psychosis Admitted From: Home Plans for Post Hospital Care: Home History of present illness: Patient is a 37-year-old male with past medical history of schizophrenia with multiple inpatient hospitalizations, substance abuse, pulmonary embolism, hypertension and hyperlipidemia who presents to the ER on 05/06/18 after being found wandering in the park. Patient was brought into the ER for evaluation. In the ER patient was found to have acute renal failure with dehydration. Patient generally is admitted to inpatient psychiatry unit but because of acute renal failure will be admitted to medical surgical service with psychiatry consult. Past Med Surg Social Fam HX - Past Medical History Medical history: hypertension Additional medical history: TBI Psychiatric history: schizophrenia, previous psychiatric hospitalization - Past Surgical History Surgical History: appendectomy, arthroscopy Additional surgical history: right knee surgery - Social History Smoking Status: Current every day smoker Smokeless Tobacco Status: No Alcohol use: occasionally Drug use: cocaine, marijuana, methamphetamine - Family History Father Adopted: No Family Member Ethnicity: Non- Living Status: Still Living Hx Family Cardiac Disorders: No Hx Family Respiratory Disorders: No Hx Family Cancer: No Hx Family GI Disorders: No Hx Family Endocrine Disorder: No Hx Family Neuromuscular Disorders: No Hx Family Neurologic Disorders: No Hx Family HEENT Disorders: No Hx Family Autoimmune Disorders: No Internal Medicine - H&P: Meds Benztropine [Cogentin] 1 mg PO BID 30 Days #60 tablet 12/21/17 [Rx] Divalproex (12 HR) [Depakote (12 HR)] 250 mg PO BID 30 Days #60 tablet. [Rx] Lisinopril [Zestril] 5 mg PO DAILY 30 Days #30 tablet 12/21/17 [Rx] Lurasidone [Latuda] 120 mg PO DAILY 30 Days #30 tablet 12/21/17 [Rx] Naltrexone HCl 50 mg PO DAILY 30 Days #30 tablet 12/21/17 [Rx] Propranolol [Inderal] 20 mg PO BID 30 Days #60 tablet 12/21/17 [Rx] Quetiapine Fumarate [Seroquel] 400 mg PO HS 30 Days #30 tablet 12/21/17 [Rx] Rivaroxaban [Xarelto] 20 mg PO DAILY 30 Days #30 tablet 12/21/17 [Rx] hydrOXYzine pamoate [HydrOXYzine Pamoate] 25 mg PO TID PRN 30 Days #90 capsule 12/21/17 [Rx] 3 Allergy/AdvReac Type Severity Reaction Status Date / Time No Known Allergies Allergy Verified 04/19/18 13:34 ROS unobtainable: due to mental status All Systems PM: A 10-system review of systems was performed and is negative for pertinent findings except as documented above in the HPI. - Constitutional Vitals: Temp Pulse Resp BP Pulse Ox 99.6 F 121 22 164/119 96 05/06/18 08:53 05/06/18 08:53 05/06/18 08:53 05/06/18 08:53 05/06/18 08:53 General appearance: Present: disheveled - ENT ENT exam: Present: mucous membranes dry - Respiratory Respiratory exam: Present: CTAB. Absent: accessory muscle use, rales, rhonchi, wheezes - Cardiovascular Cardiovascular exam: Present: RRR, +S1, +S2. Absent: diastolic murmur, gallop, rubs, systolic murmur - GI/Abdominal GI/Abdominal exam: Present: normal bowel sounds, soft, no peritoneal signs. Absent: distended, tenderness - Extremities Exam Extremities exam: Absent: pedal edema - Neurological Exam Neurological exam: Present: alert - Expanded Psychiatric Exam Focused psych exam: Present: psychomotor agitation, restlessness Internal Med - H&P Results - Labs CBC & Chem 7: 05/06/18 04:30 05/06/18 04:30 - Assessment and plan (1) Acute psychosis Current Visit: No Status: Acute Assessment and plan: Patient with history of chronic schizophrenia found wandering in the park Suspect secondary to acute psychosis. Psychiatry consulted from the ER and appreciate recommendations. (2) Acute renal failure (ARF) Current Visit: Yes Status: Acute Assessment and plan: In the ER patient was found to have a creatinine of 2.1 with a GFR of 36 Suspect secondary to dehydration due to elevated BUN to creatinine ratio Will give IV fluids and monitor Qualifiers: Acute renal failure type: unspecified Qualified Code(s): N17.9 - Acute kidney failure, unspecified (3) Tardive dyskinesia Current Visit: Yes Status: Acute Assessment and plan: Patient was given 1 dose of benzotropine in the ER Will schedule benztropine 1 mg twice daily for extrapyramidal symptoms Psychiatry consulted and appreciate recommendations (4) Chronic schizophrenia Current Visit: No Status: Acute Assessment and plan: Will continue psychiatric meds Psychiatry following as above (5) DVT prophylaxis Current Visit: No Status: Acute Assessment and plan: Continue patient's home dose of Xarelto (6) DVT prophylaxis Current Visit: No Status: Chronic - Time Spent With Patient Total time spent is greater than 50% in coordination of care (as documented) at patient's floor/unit and/or counseling patient:
[2018-05-06] MEDS ORDERED: Naloxone 0.4 MG/ML INJ IVP PRN (09:30)
[2018-05-06] MEDS ORDERED: hydrOXYzine pamoate 25 MG CAPSULE PO PRN (09:32)
[2018-05-06] MEDS ORDERED: Ziprasidone injection 20 MG/ML VIAL IM ONE ×4 (11:36→16:57)
[2018-05-06] MEDS ORDERED: *HR* LORazepam 2 MG/ML VIAL IVP ONE ×3 (12:15→16:57)
[2018-05-06] MEDS ORDERED: *HR* LORazepam 2 MG/ML VIAL ONE (12:16)
[2018-05-06] MEDS: 0.9 % Sodium Chloride 1,000 ML IVC SCH ×2 (13:00→17:12)
--- NOTE | 2018-05-06 13:39 | Consult Note ---
Date of Encounter: 05/06/18 Time of Encounter: 12:15 Assessment & Recommendation (1) Acute exacerbation of chronic paranoid schizophrenia Current visit: Yes Status: Acute (2) Catatonic disorder due to known physiological condition Current visit: Yes Status: Acute (3) YOVANI (acute kidney injury) Current visit: Yes Status: Acute (4) Patient's noncompliance with other medical treatment and regimen Current visit: No Status: Chronic History of Present Illness Patient: known to practice within the last 3 years Requesting Physician: Samuel Stroud Reason for consult: agitation History of present illness: Mr. Miller is a 37 year old male CC:agitation HPI: This patient was admitted for dehydration. The patient has schizophrenia and he has episodes of catatonia with immobility. Such immobility has led to pulmonary embolus, dehydration, skin breakdown and malnutrition. The patient's schizophrenia as of the paranoid type and he tends to hear voices and believing things that are not true. In response to voices and delusions he may stand immobile or may attempt to move AGAINST MEDICAL ADVICE. Such is the case in this hospitalization with the patient was dehydrated with acute kidney injury. He had elevated BUN/creatinine. He did not take in fluids. I come to see him and found that he was attempting to get out of bed he was resisting medical guidance he was not following the instructions of nurses and presented a risk to himself. During this period of time emergency medicines were administered. To briefly summarize the patient received Geodon 20 mg IM at about 12:15 PM today The patient received Ativan 1 mg IV approximately 12:20 PM. The patient received a second 1 mg of Ativan IV at approximately 12:35 PM. During this period of time the patient had been agitated and attempted to stand up in the bed. The patient had an IV in and would most likely ripped out the IV access. The patient is dehydrated and needed fluids and thus the IV access was important. The patient had held his head in a position of psychological pillow. He had stared straight ahead. He was mostly mute and would not answer a few things on command such as his name or say yes or no. The patient did not give any elaborate explanations speak in full sentences and was negativistic to verbal and nonverbal instructions. He stared straight ahead. The patient's muscles were rigid and he held onto them tightly. Previously he had indicated that if he were to move the life would or some calamity would befall. After 20 minutes of 4 or more staff keeping him from rising from the bed and attempt was made to put him in restraints however he had been improved and become minimally conversant and he asked not to be put in restraints and indicated that he might calm down efforts are made to have him take fluid by mouth. Several members of the staff were able to talk to him and had a calming effect. The second 20 mg of Geodon was not given but is anticipated to be necessary by 1514 today. Geodon is generally given at 40 mg maximum per day In this case the patient had acute agitation and would have required restraints but improved with the emergency medicines were given. He continues to have psychosis and reports hearing voices but is not involved in the catatonic repetitive motion. The oral buccal movements the jaw opening the movement of the neck and shoulder are most likely a withdrawal dyskinesia. These may improve with the emergency medicines and restarting his medicines and I will attempt to restart his medication. He is well known to our service. He is his own payee. He must be considered as not having the capacity to make medical decisions. The patient may be on a pink slip for his safety. Medical stabilization would be helpful and to prevent the complications of catatonia. In the past the patient has been said to have a episode of neuroleptic malignant syndrome. 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 He has elevated CK he had elevated vital signs he had rigidity he had excessive movement and he had potentially lethal kidney impairment from dehydration. Nonetheless antipsychotics may still have a role for the treatment of malignant or lethal catatonia. CC: Samuel Stroud Past Med Surg Social Fam HX - Past Medical History Medical history: hypertension, pulmonary embolus - Past Psychiatric History Psychiatric history: Reports: schizophrenia, previous psychiatric hospitalization, other Family psychiatric history: Unknown Family History of Suicide: Unknown - Past Surgical History Surgical History: appendectomy, arthroscopy - Social History Smoking Status: Current every day smoker Smokeless Tobacco Status: No Alcohol use: occasionally Drug use: cocaine, marijuana, methamphetamine Occupational status: disabled Current living situation: Homeless Activity Level: Independent ambulation Recent Out of Country Travel Within the Last 8 Weeks: No Exposure or Possible Exposure to Illness During Travel: No - Family History Father Adopted: No Family Member Ethnicity: Non- Living Status: Still Living Hx Family Cardiac Disorders: No Hx Family Respiratory Disorders: No Hx Family Cancer: No Hx Family GI Disorders: No Hx Family Endocrine Disorder: No Hx Family Neuromuscular Disorders: No Hx Family Neurologic Disorders: No Hx Family HEENT Disorders: No Hx Family Autoimmune Disorders: No Medications & Allergies Benztropine [Cogentin] 1 mg PO BID 30 Days #60 tablet 12/21/17 [Rx] Divalproex (12 HR) [Depakote (12 HR)] 250 mg PO BID 30 Days #60 tablet.dr [Rx] Lisinopril [Zestril] 5 mg PO DAILY 30 Days #30 tablet 12/21/17 [Rx] Lurasidone [Latuda] 120 mg PO DAILY 30 Days #30 tablet 12/21/17 [Rx] Naltrexone HCl 50 mg PO DAILY 30 Days #30 tablet 12/21/17 [Rx] Propranolol [Inderal] 20 mg PO BID 30 Days #60 tablet 12/21/17 [Rx] Quetiapine Fumarate [Seroquel] 400 mg PO HS 30 Days #30 tablet 12/21/17 [Rx] Rivaroxaban [Xarelto] 20 mg PO DAILY 30 Days #30 tablet 12/21/17 [Rx] hydrOXYzine pamoate [HydrOXYzine Pamoate] 25 mg PO TID PRN 30 Days #90 capsule 12/21/17 [Rx] 3 Allergy/AdvReac Type Severity Reaction Status Date / Time No Known Allergies Allergy Verified 04/19/18 13:34 Review of Systems Psychiatric: Reports: abnormal sleep pattern, auditory hallucinations, other Psychiatry Exam - Constitutional Vitals: Temp Pulse Resp BP Pulse Ox 98.1 F 117 18 149/100 96 05/06/18 11:23 05/06/18 11:23 05/06/18 11:23 05/06/18 11:23 05/06/18 11:23 General appearance: disheveled, malodorous, obese - Musculoskeletal Gait: other Station: other Strength & Tone: rigid - Psychiatric Patient Orientation: Yes Person Level of alertness: Does not respond to painful stimuli Behavior: other Psychomotor activity: Catatonic Eye Contact: No Eye Contact Mood Description: Irritable Affect description: other Speech Volume: No speech Speech pattern: non-verbal Language & Vocabulary: limited Thought Process: Slowed Thinking Thought Content: Yes Nihilistic delusion Perceptual Disturbances: Yes Auditory hallucinations Attention Span Ability: Unable to Focus Memory Description: Immediate Impaired, Recent Impaired, Remote Impaired Patient Reliability: Not Reliable Historian Fund of knowledge: Yes average Intelligence Estimate: Below Average Judgment: Poor Insight: None Results - Labs Labs: Laboratory Last Values WBC 17.4 K/mcL (4.3-11.1) H 05/06/18 04:30 RBC 5.36 M/mcL (4.19-5.50) 05/06/18 04:30 Hgb 16.6 g/dL (12.9-16.9) 05/06/18 04:30 Hct 48.4 % (37.5-50.1) 05/06/18 04:30 MCV 90.3 fL (83.0-100.0) 05/06/18 04:30 MCH 31.0 pg (28.0-33.3) 05/06/18 04:30 MCHC 34.3 g/dL (31.6-35.5) 05/06/18 04:30 RDW 13.2 % (11.5-14.5) 05/06/18 04:30 Plt Count 464 K/mcL (140-400) H 05/06/18 04:30 MPV 11.1 fL (9.4-12.4) 05/06/18 04:30 Immature Gran % 0.4 % (0-4) 05/06/18 04:30 Seg Neutrophils % 76.8 % 05/06/18 04:30 Lymphocytes % 10.5 % 05/06/18 04:30 Monocytes % 11.9 % 05/06/18 04:30 Eosinophils % 0.1 % 05/06/18 04:30 Basophils % 0.3 % 05/06/18 04:30 Neutrophils # 13.3 K/mcL (1.6-8.9) H 05/06/18 04:30 Lymphocytes # 1.8 K/mcL (0.6-4.6) 05/06/18 04:30 Monocytes # 2.1 K/mcL (0.0-1.3) H 05/06/18 04:30 Eosinophils # 0.0 K/mcL (0.0-0.6) 05/06/18 04:30 Basophils # 0.1 K/mcL (0.0-0.2) 05/06/18 04:30 Sodium 142 mEq/L (136-145) 05/06/18 04:30 Potassium 4.3 mEq/L (3.5-5.1) 05/06/18 04:30 Chloride 111 mEq/L (98-107) H 05/06/18 04:30 Carbon Dioxide 16 mEq/L (23-29) L 05/06/18 04:30 BUN 30 mg/dL (6-20) H 05/06/18 04:30 Creatinine 2.10 mg/dL (0.70-1.30) H 05/06/18 04:30 Est GFR ( Amer) 44 (> 60) L 05/06/18 04:30 Est GFR (Non-Af Amer) 36 (> 60) L 05/06/18 04:30 BUN/Creatinine Ratio 14 (6-26) 05/06/18 04:30 Glucose 151 mg/dL (70-105) H 05/06/18 04:30 Calculated Osmolality 303 (280-300) H 05/06/18 04:30 Calcium 10.5 mg/dL (8.6-10.3) H 05/06/18 04:30 Total Bilirubin 1.0 mg/dL (0.3-1.0) 05/06/18 04:30 Direct Bilirubin 0.3 mg/dL (0.0-0.2) H 05/06/18 04:30 Indirect Bilirubin 0.7 mg/dL (0.0-1.2) 05/06/18 04:30 AST 38 Units/L (13-39) 05/06/18 04:30 ALT 58 Units/L (7-52) H 05/06/18 04:30 Alkaline Phosphatase 103 Units/L (34-104) 05/06/18 04:30 Creatine Kinase 253 Units/L (30-223) H 05/06/18 04:30 Serum Total Protein 9.0 g/dL (6.4-8.9) H 05/06/18 04:30 Albumin 5.3 g/dL (3.5-5.7) 05/06/18 04:30 Globulin 3.7 g/dL (2.4-3.5) H 05/06/18 04:30 Albumin/Globulin Ratio 1.4 (1.1-2.2) 05/06/18 04:30 TSH 2.848 mcIU/mL (0.340-5.600) 05/06/18 04:30 Salicylates < 2.5 mg/dL (15.0-30.0) L 05/06/18 04:30 Acetaminophen < 10 mcg/mL (10-20) L 05/06/18 04:30 Valproic Acid 4 mcg/mL (50-100) L 05/06/18 04:30 Ethyl Alcohol < 10 mg/dL (Less than 10) 05/06/18 04:30 Consult Discharge Plan - Plan Referrals: NONE,PCP [Primary Care Provider] -
[2018-05-06] MEDS: *HR* Rivaroxaban 10 MG TABLET PO SCH (17:12)
[2018-05-06 18:01] LABS: BUN/Creatinine Ratio 20 (6-26); Blood Urea Nitrogen 25 mg/dL (6-20); Calcium 8.9 mg/dL (8.6-10.3); Carbon Dioxide 21 mEq/L (23-29); Chloride 109 mEq/L (98-107); Glucose 141 mg/dL (70-105); Osmolality,Calculated 295 (280-300); Potassium 3.2 mEq/L (3.5-5.1); Sodium 139 mEq/L (136-145); eGFR For Non-African Americans > 60 (> 60)
[2018-05-06] MEDS: Divalproex (12 HR) 250 MG TABLET PO SCH (20:50)
[2018-05-06 21:08] LABS: Bilirubin,Urine Negative (Negative); Blood,Urine Negative (Negative); Clarity,Urine Clear (Clear); Color,Urine Dark Yellow (Yellow); Glucose,Urine (UA) Normal (Normal); Ketones,Urine Trace mg/dL (Negative); Leukocyte Esterase,Urine Negative (Negative); Nitrite,Urine Positive (Negative); PH,Urine 5.5 pH Units (5.0-8.0); Protein,Urine 30 mg/dL (Neg-Trace); Specific Gravity,Urine > 1.030 (1.010-1.025); Urobilinogen,Urine Normal (Normal)
[2018-05-06 21:11] LABS: Bacteria,Urine Moderate per hpf (None-Few); Hyaline Casts,Urine None Seen per lpf (None-Few); Squamous Epithelial Cell,Urine Many per lpf (None-Few)
[2018-05-06 21:36] LABS: Amphetamine Screen,Urine Positive ng/mL (Cutoff=1000); Barbiturate Screen,Urine Negative ng/mL (Cutoff=200); Benzodiazepines Screen,Urine Negative ng/mL (Cutoff=200); Cannabinoid Screen,Urine Positive ng/mL (Cutoff = 50); Cocaine Screen,Urine Positive ng/mL (Cutoff= 300); Opiate Screen,Urine Negative ng/mL (Cutoff=300); Phencyclidine Screen,Urine Negative ng/mL (Cutoff=25)
[2018-05-07 05:35] LABS: Basophils % 0.3 %; Eosinophils # 0.1 K/mcL (0.0-0.6); Eosinophils % 0.5 %; Hematocrit 39.1 % (37.5-50.1); Immature Granulocytes % 0.3 % (0-4); Lymphocytes # 2.7 K/mcL (0.6-4.6); Lymphocytes % 23.4 %; Mean Corpuscular HGB Conc 33.8 g/dL (31.6-35.5); Mean Corpuscular Hemoglobin 31.5 pg (28.0-33.3); Mean Corpuscular Volume 93.3 fL (83.0-100.0); Monocytes # 1.2 K/mcL (0.0-1.3); Monocytes % 10.6 %; Neutrophils # 7.5 K/mcL (1.6-8.9); Platelet Count 265 K/mcL (140-400); Red Blood Count 4.19 M/mcL (4.19-5.50); Red Cell Distribution Width 12.8 % (11.5-14.5); Segmented Neutrophils % 64.9 %
[2018-05-07 05:39] LABS: Hemoglobin 13.2 g/dL (12.9-16.9)
[2018-05-07 06:00] LABS: BUN/Creatinine Ratio 20 (6-26); Blood Urea Nitrogen 19 mg/dL (6-20); Calcium 8.6 mg/dL (8.6-10.3); Carbon Dioxide 23 mEq/L (23-29); Chloride 111 mEq/L (98-107); Glucose 103 mg/dL (70-105); Osmolality,Calculated 293 (280-300); Potassium 3.4 mEq/L (3.5-5.1); Sodium 140 mEq/L (136-145); eGFR For Non-African Americans > 60 (> 60)
[2018-05-07] MEDS: Divalproex (12 HR) 250 MG TABLET PO SCH ×2 (09:24→22:18)
[2018-05-07] MEDS: NALTREXONE HCL 50 MG TABLET PO SCH (09:24)
[2018-05-07] MEDS: 0.9 % Sodium Chloride 1,000 ML IVC SCH ×2 (09:33→22:19)
--- NOTE | 2018-05-07 13:57 | Internal Med Progress Note ---
Hospitalist Progress Note - Encounter Date of Encounter: 05/07/18 Time of Encounter: 13:54 - Subjective Interval History: Seen and examined at bedside. He is resting in bed, appears comfortable. Has no complaints. He is aware of plan to go to one a once medically stable and at bed is available. - Exam Vitals: Temp Pulse Resp BP Pulse Ox 98.5 F 98 24 136/70 96 05/07/18 11:03 05/07/18 11:03 05/07/18 11:03 05/07/18 11:03 05/07/18 11:03 Exam: General appearance: Present: disheveled and sunburned - ENT ENT exam: Present: mucous membranes dry - Respiratory Respiratory exam: Present: CTAB. Absent: accessory muscle use, rales, rhonchi, wheezes - Cardiovascular Cardiovascular exam: Present: RRR, +S1, +S2. Absent: diastolic murmur, gallop, rubs, systolic murmur - GI/Abdominal GI/Abdominal exam: Present: normal bowel sounds, soft, no peritoneal signs. 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 Such immobility has led to pulmonary embolus, dehydration, skin breakdown and malnutrition. Evaluated by psychiatry who does not feel patient has medical decision making capacity at this time. He is pink slipped. Plan to transfer to inpatient psych once medically stable. Cont home antipsychotics (2) Acute psychosis Current Visit: No Status: Acute Assessment and Plan: Plan as noted above (3) Chronic schizophrenia Current Visit: No Status: Acute Assessment and Plan: Will continue psychiatric meds Psychiatry following as above (4) Tardive dyskinesia Current Visit: Yes Status: Acute Assessment and Plan: Patient was given 1 dose of benzotropine in the ER. Cont schedule benztropine 1 mg twice daily for extrapyramidal symptoms (5) Acute renal failure (ARF) Current Visit: Yes Status: Acute Assessment and Plan: Secondary to dehydration. Renal function normalized with IV fluids. (6) Leukocytosis Current Visit: No Status: Acute Assessment and Plan: WBC 17 K on arrival. Suspect reactive. No obvious infectious source. Afebrile , no tachycardia. The WBC trending down. Hold on ATB. DVT Prophylaxis: heparin - Time Spent with Patient Total time spent is greater than 50% in coordination of care (as documented) at patient's floor/unit and/or counseling patient: less than 15 minutes Plan of Care Discussed with: patient Internal Medicine: Result - Labs CBC & Chem 7: 05/07/18 04:34 05/07/18 04:34 Labs: Short CBC 05/07/18 Range/Units 04:34 WBC 11.6 H (4.3-11.1) K/mcL Hgb 13.2 D (12.9-16.9) g/dL Hct 39.1 (37.5-50.1) % Plt Count 265 (140-400) K/mcL Neutrophils # 7.5 (1.6-8.9) K/mcL BMP 05/06/18 05/07/18 17:08 04:34 Sodium 139 140 Potassium 3.2 L D 3.4 L Chloride 109 H 111 H Carbon Dioxide 21 L 23 BUN 25 H 19 Creatinine 1.28 0.97 Glucose 141 H 103 Calcium 8.9 8.6 Urine 05/06/18 Range/Units 20:35 Urine Color Dark Yellow (Yellow) Urine Clarity Clear (Clear) Urine pH 5.5 (5.0-8.0) pH Units Ur Specific [place] > 1.030 H (1.010-1.025) Urine Protein 30 H (Neg-Trace) mg/dL Urine Glucose (UA) Normal (Normal) mg/dL Consult Discharge Plan - Plan Referrals: NONE,PCP [Primary Care Provider] - (5) Acute renal failure (ARF) Qualifiers: Acute renal failure type: unspecified Qualified Code(s): N17.9 - Acute kidney failure, unspecified (6) Leukocytosis Qualifiers: Leukocytosis type: unspecified Qualified Code(s): D72.829 - Elevated white blood cell count, unspecified
[2018-05-07] MEDS: *HR* Rivaroxaban 10 MG TABLET PO SCH (17:07)
[2018-05-08] MEDS: 0.9 % Sodium Chloride 1,000 ML IVC SCH (05:36)
[2018-05-08] MEDS: NALTREXONE HCL 50 MG TABLET PO SCH (08:45)
[2018-05-08] MEDS: Divalproex (12 HR) 250 MG TABLET PO SCH (08:45)
[2018-05-08 13:32] LABS: Hematocrit 37.3 % (37.5-50.1); Hemoglobin 12.8 g/dL (12.9-16.9); Mean Corpuscular HGB Conc 34.3 g/dL (31.6-35.5); Mean Corpuscular Hemoglobin 31.8 pg (28.0-33.3); Mean Corpuscular Volume 92.6 fL (83.0-100.0); Mean Platelet Volume 10.8 fL (9.4-12.4); Platelet Count 267 K/mcL (140-400); Red Blood Count 4.03 M/mcL (4.19-5.50); Red Cell Distribution Width 12.4 % (11.5-14.5)
[2018-05-08 13:46] LABS: BUN/Creatinine Ratio 11 (6-26); Blood Urea Nitrogen 11 mg/dL (6-20); Calcium 8.6 mg/dL (8.6-10.3); Carbon Dioxide 26 mEq/L (23-29); Chloride 111 mEq/L (98-107); Glucose 126 mg/dL (70-105); Osmolality,Calculated 293 (280-300); Potassium 3.8 mEq/L (3.5-5.1); Sodium 141 mEq/L (136-145); eGFR For Non-African Americans > 60 (> 60)
--- NOTE | 2018-05-08 15:15 | Discharge Summary ---
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 Such immobility has led to pulmonary embolus, dehydration, skin breakdown and malnutrition. Evaluated by psychiatry who does not feel patient has medical decision making capacity at this time. He was pink slipped discharge to 1 A for continued psychiatric treatment. Cont home antipsychotics (2) Acute psychosis Priority: Primary Status: Acute Assessment and Plan: Plan as noted above (3) Chronic schizophrenia Priority: Primary Status: Acute Assessment and Plan: Plan as noted above (4) Tardive dyskinesia Priority: Primary Status: Acute Assessment and Plan: Patient was given 1 dose of benzotropine in the ER. Cont schedule benztropine 1 mg twice daily for extrapyramidal symptoms (5) Acute renal failure (ARF) Priority: Primary Status: Acute Assessment and Plan: Secondary to dehydration. Renal function normalized with IV fluids. Qualifiers: Acute renal failure type: unspecified Qualified Code(s): N17.9 - Acute kidney failure, unspecified (6) Leukocytosis Priority: Primary Status: Acute Assessment and Plan: WBC 17 K on arrival. Suspect reactive. No obvious infectious source. Afebrile , no tachycardia. The WBC trending down. Hold on ATB. Qualifiers: Leukocytosis type: unspecified Qualified Code(s): D72.829 - Elevated white blood cell count, unspecified (7) Pulmonary embolism Priority: Secondary Status: Chronic Assessment and Plan: dx with small pulmonary embolism 10/2017. Patient reported completing 3 months of Xarelto however anticoagulation remains on his medication list. No chest pain or shortness of breath. 2 new Xarelto. Check chest CTA. We will follow up with her he is inpatient psych or medical unit. Qualifiers: Pulmonary embolism type: other Chronicity: unspecified Acute cor pulmonale presence: without acute cor pulmonale Qualified Code(s): I26.99 - Other pulmonary embolism without acute cor pulmonale Hospital course: Please see assessment and plan for Hospital course Discharge discussed with: patient (Seen and examined at bedside. He is somewhat anxious and agitated. He is aware plan for discharge to one a once bed available. No chest pain or shortness of breath.) - Time Spent with Patient Total time spent providing and/or coordinating discharge services: - Discharge Medications Home Medications: Benztropine [Cogentin] 1 mg PO BID 30 Days #60 tablet 12/21/17 [Rx] Divalproex (12 HR) [Depakote (12 HR)] 250 mg PO BID 30 Days #60 tablet. [Rx] Lisinopril [Zestril] 5 mg PO DAILY 30 Days #30 tablet 12/21/17 [Rx] Lurasidone [Latuda] 120 mg PO DAILY 30 Days #30 tablet 12/21/17 [Rx] Naltrexone HCl 50 mg PO DAILY 30 Days #30 tablet 12/21/17 [Rx] Propranolol [Inderal] 20 mg PO BID 30 Days #60 tablet 12/21/17 [Rx] Quetiapine Fumarate [Seroquel] 400 mg PO HS 30 Days #30 tablet 12/21/17 [Rx] Rivaroxaban [Xarelto] 20 mg PO DAILY 30 Days #30 tablet 12/21/17 [Rx] hydrOXYzine pamoate [HydrOXYzine Pamoate] 25 mg PO TID PRN 30 Days #90 capsule 12/21/17 [Rx] Allergies/Adverse Reactions: 3 Allergy/AdvReac Type Severity Reaction Status Date / Time No Known Allergies Allergy Verified 04/19/18 13:34 Date of admission: 05/06/18 08:00 Primary care physician: PCP NONE Consults: 05/06/18 09:08 Consult to Funds Transfer Clerk [CONS] Routine Reason for SW Consult: homeless Discharging clinician: Debra Shay Anticipated date of discharge: 05/08/18 - Constitutional Vitals: Temp Pulse Resp BP Pulse Ox 98.3 F 65 18 135/82 99 05/08/18 11:29 05/08/18 11:29 05/08/18 11:29 05/08/18 11:29 05/08/18 11:29 General appearance: Present: disheveled, A&O X 3, morbidly obese, no acute distress - Head Head exam: Present: atraumatic, normocephalic - Eye Eye exam: Present: PERRL, conjuntiva pink, sclera anicteric Pupils: Present: PERRL - Neck Neck exam general surgery: Present: supple, trachea midline. Absent: lymphadenopathy - Respiratory Respiratory exam: Present: CTAB. Absent: accessory muscle use, rales, rhonchi, wheezes - Cardiovascular Cardiovascular exam: Present: RRR, +S1, +S2. Absent: diastolic murmur, gallop, rubs, systolic murmur - GI/Abdominal GI/Abdominal exam: Present: normal bowel sounds, soft, no peritoneal signs. Absent: distended, tenderness - Extremities Exam Extremities exam: Present: warm, radial pulses palpable and symmetrical. Absent : calf tenderness, cyanotic, pedal edema - Neurological Exam Neurological exam: Present: CN II-XII intact, oriented X3, no focal deficits. Absent: pronater drift, facial droop, speech deficit - Skin Skin exam: Present: dry, intact - Patient Status Disposition: Transfer Psychiatric Hosp Condition: Good Functional capacity at discharge: independent ambulation Overall status at discharge: patient is progressing back to baseline - Discharge Instructions Follow Up With: NONE,PCP [Primary Care Provider] - - Diet and Activity Activity: increase activity as tolerated Diet: advance to your usual diet
[2018-05-08] MEDS ORDERED: Isovue-370 500 ML INFUS..BTL IV ONE (15:16)
[2018-05-08 15:53] VITALS: BP 160/89
[2018-05-08] MEDS: *HR* Rivaroxaban 10 MG TABLET PO SCH (16:12)
== END 2018-05-08 16:45 ==
LOC: EMEROO 03:42 → 3BNU 03:42
PROVIDERS: ADMIT Hospitalist; ATTEND Hospitalist

== ENCOUNTER 2018-05-08 16:52 | Inpatient (IN) ==
[2018-05-08] MEDS ORDERED: *HR* LORazepam 2 MG/ML VIAL IM PRN (17:25)
[2018-05-08] MEDS ORDERED: Mag Hydrox/Al Hydrox/Simeth 30 ML UDC PO PRN (17:25)
[2018-05-08] MEDS ORDERED: *HR* LORazepam 1 MG TABLET PO PRN (17:25)
[2018-05-08] MEDS ORDERED: MOM Conc 10 ML UD.LIQ PO PRN (17:25)
[2018-05-08] MEDS ORDERED: Nicotine 2 MG GUM BC PRN (17:25)
[2018-05-08] MEDS ORDERED: Haloperidol Lactate 5 MG/ML VIAL IM PRN (17:25)
[2018-05-09] MEDS: hydrOXYzine pamoate 25 MG CAPSULE PO PRN ×2 (09:21→20:13)
--- NOTE | 2018-05-09 13:54 | Psychiatry History & Physical ---
Date of Encounter: 05/09/18 Time of Encounter: 13:00 History of Present Illness Patient Stated Chief Complaint: i do not know why i am here. Medicare Admission Attestation: For traditional Medicare patients the provided hospital inpatient services are reasonable and necessary and in the case of services not specified as inpatient -only under 42 CFR 419.22 (n), that they are appropriately provided as inpatient services in accordance 42 CFR 412.3. For Critical Access Hospital the patient may reasonably be expected to be discharged or transferred to a hospital within 96 hours after admission to the Critical Access Hospital. Admitted From: Direct Admit Plans for Post Hospital Care: Home History of Present Illness: Mr. Miller is a 37 year old male evaluated today , admitted from medical unit where he was admitted for dehydration and consult called for agitation. Mr. Miller is well known to this facility , he has long h/o , Schizophrenia ,non compliance , relapse on substance use and poor insight and judgement. This time he left his fathers place 6 days ago and has been non compliant was bought in by squad to ED , where he was found dehydrated and acute kidney injury , he was then consulted and found to have catatonia and was given geodon im and then transfered to floor , patient has no recollection of how he got here , he has been pacing , poor historian, and internally preoccupied. his tox was positive for cocain , meth , and cannabis . he mark using any. he at present is in need of psych. in patient and treatment and stabilization for psychosis and poor judgement. will start low dose latuda 40 mg . he has h/o NMS and pulmonary embolism in past. Past Med Surg Social Fam HX - Past Medical History Medical history: hypertension, pulmonary embolus - Past Psychiatric History Psychiatric history: Reports: schizophrenia, previous psychiatric hospitalization Family psychiatric history: Unknown Family History of Suicide: Unknown - Past Surgical History Surgical History: appendectomy, arthroscopy - Social History Smoking Status: Current every day smoker Smokeless Tobacco Status: No Alcohol use: occasionally Drug use: cocaine, marijuana, methamphetamine - Family History Father Adopted: No Family Member Ethnicity: Non- Living Status: Still Living Hx Family Cardiac Disorders: No Hx Family Respiratory Disorders: No Hx Family Cancer: No Hx Family GI Disorders: No Hx Family Endocrine Disorder: No Hx Family Neuromuscular Disorders: No Hx Family Neurologic Disorders: No Hx Family HEENT Disorders: No Hx Family Autoimmune Disorders: No Medications & Allergies Benztropine [Cogentin] 1 mg PO BID 30 Days #60 tablet 12/21/17 [Rx] Divalproex (12 HR) [Depakote (12 HR)] 250 mg PO BID 30 Days #60 tablet.dr [Rx] Lisinopril [Zestril] 5 mg PO DAILY 30 Days #30 tablet 12/21/17 [Rx] Lurasidone [Latuda] 120 mg PO DAILY 30 Days #30 tablet 12/21/17 [Rx] Naltrexone HCl 50 mg PO DAILY 30 Days #30 tablet 12/21/17 [Rx] Propranolol [Inderal] 20 mg PO BID 30 Days #60 tablet 12/21/17 [Rx] Quetiapine Fumarate [Seroquel] 400 mg PO HS 30 Days #30 tablet 12/21/17 [Rx] Rivaroxaban [Xarelto] 20 mg PO DAILY 30 Days #30 tablet 12/21/17 [Rx] hydrOXYzine pamoate [HydrOXYzine Pamoate] 25 mg PO TID PRN 30 Days #90 capsule 12/21/17 [Rx] 3 Allergy/AdvReac Type Severity Reaction Status Date / Time No Known Allergies Allergy Verified 04/19/18 13:34 Review of Systems Constitutional: Denies: fever, chills, weakness, weight change Eyes: Denies: eye pain, vision change Ears, Nose, Throat: Denies: ear pain, throat pain, dental pain, hearing loss, congestion Cardiovascular: Denies: chest pain, palpitations, dyspnea on exertion Respiratory: Denies: cough, dyspnea, wheezes Gastrointestinal: Denies: abdominal pain, nausea, vomiting, diarrhea, constipation Genitourinary male: Denies: urgency, dysuria, frequency, genital lesions Musculoskeletal: Denies: joint swelling, joint pain Integumentary: Denies: rash, lesions, pruritus Neurological: Denies: headache, weakness, numbness, memory loss Psychiatric: Reports: anxiety, abnormal sleep pattern, auditory hallucinations, visual hallucinations, confusion, difficulty concentrating Endocrine: Denies: fatigue, heat or cold intolerance Hematologic/Lymphatic: Denies: easy bruising, lymphadenopathy Allergic/Immunologic: Denies: urticaria, itchy eyes Exam - HEENT Head exam IM: Present: atraumatic Eye exam IM: Present: normal appearance ENT exam IM: Present: normal exam - Neurological Neurological exam: Present: CN II-XII intact - Respiratory Respiratory exam IM: Present: CTAB - Extremities Extremities exam IM: Present: full ROM - Skin Skin exam IM: Present: dry - Constitutional Vitals: Temp Pulse Resp BP 98.9 F 67 18 120/80 05/09/18 09:00 05/09/18 09:00 05/09/18 09:00 05/09/18 09:00 General appearance: obese - Musculoskeletal Gait: other Station: other Strength & Tone: normal for patient - Psychiatric Patient Orientation: Yes Person, Yes Time, Yes Place Level of alertness: Alert Behavior: restless, guarded, distractible Psychomotor activity: Increased Eye Contact: Fleeting Contact Mood Description: Euthymic/stable Affect description: blunted, flat Speech Volume: Soft/Quiet Speech pattern: slowed Language & Vocabulary: limited Thought Process: Thought Blocking, Slowed Thinking Thought Content: Yes Preoccupation, Yes Paranoid delusion Perceptual Disturbances: Yes Reacting to internal stimuli Attention Span Ability: Unable to Sustain Attention Memory Description: Recent Impaired Patient Reliability: Not Reliable Historian Fund of knowledge: Yes below average Intelligence Estimate: Below Average Judgment: Poor Insight: None Assessment and Plan (1) Schizophrenia Current visit: No Status: Chronic Plan: Admit inpatient for safety and stabilization, Close observation, Suicide Precautions per unit protocol, Encourage participation in unit milieu, Group Therapy, Monitor sleep, Monitor appetite, Secure weapons, Family/Supportive other meeting Risks, benefits, side effects, alternatives discussed w/pt: Yes Patient agreeable to treatment: Yes Plans for Post Hospital Care: at Home Estimated Length of Stay (Days): 5 Qualifiers: Schizophrenia type: catatonic schizophrenia Qualified Code(s): F20.2 - Catatonic schizophrenia (2) Polysubstance abuse Current visit: No Status: Acute Plan: Admit inpatient for safety and stabilization, Close observation, Suicide Precautions per unit protocol, Encourage participation in unit milieu, Group Therapy, Monitor sleep, Monitor appetite, Family/Supportive other meeting Risks, benefits, side effects, alternatives discussed w/pt: Yes Patient agreeable to treatment: Yes Plans for Post Hospital Care: at Home
--- NOTE | 2018-05-09 15:15 | Event Note ---
Date of Encounter: 05/09/18 Time of Encounter: 15:12 Upon discharge to inpatient psychiatric unit on 05/08/2018, Xarelto was found to be on home medication list. Per chart review patient had a chest CTA 10/2017 that showed a small right lower lobe pneumonia and he was discharged on Xarelto. On exam patient denied currently taking Xarelto, stated he completed 3 months of therapy. Discussed case with social media assistant who verified patient filled prescription of Xarelto in November, December and January 2018. He was not hypoxic, no tachycardia or hypotension. No calf tenderness. It appears that previous pulmonary embolism possibly provoked with episodes of schizophrenia and catatonia. 05/08/18 chest CTA negative for pulmonary embolism but did show some concern for pneumonia. Start PO levaquin
[2018-05-09] MEDS: levoFLOXacin 750 MG TABLET PO SCH (15:49)
[2018-05-09] MEDS: Acetaminophen 325 MG TABLET PO PRN (20:13)
[2018-05-09] MEDS: traZODone 50 MG TABLET PO PRN (20:13)
[2018-05-09] MEDS ORDERED: *HR* LORazepam 1 MG TABLET PO ONE (21:28)
[2018-05-10] MEDS: levoFLOXacin 750 MG TABLET PO SCH (09:08)
--- NOTE | 2018-05-10 12:49 | Psychiatry Progress Note ---
Date of Encounter: 05/10/18 Time of Encounter: 12:20 Subjective Interval history: Patient seen today , case d/w staff he is calm and cooperative. yesterday evening i was called as patient was experiencing rigidity and eps s/s , he has not been on any anti psychotics since his admission , he was given benadryl,ativan and cogentin. today i examined him no rigidity, reflexes normal , mild oral movements which does not bother patient,vitals stable. he denies any psychosis at present. he is on Levaquin for his pneumonia and no side effects at present . will start lorazepam 1 m g tid . will continue close observation for psychosis. Review of Systems Psychiatric: Reports: anxiety, abnormal sleep pattern, auditory hallucinations, visual hallucinations, confusion, difficulty concentrating Results - Vital Signs Vital Signs: Temp Pulse Resp BP 98 F 66 20 126/80 05/10/18 09:00 05/10/18 09:00 05/10/18 09:00 05/10/18 09:00 Assessment and Plan (1) Schizophrenia Current visit: No Status: Chronic Risks, benefits, side effects, alternatives discussed w/pt: Yes Patient agreeable to treatment: Yes Qualifiers: Schizophrenia type: catatonic schizophrenia Qualified Code(s): F20.2 - Catatonic schizophrenia (2) Polysubstance abuse Current visit: No Status: Acute Risks, benefits, side effects, alternatives discussed w/pt: Yes Patient agreeable to treatment: Yes Consult Discharge Plan - Plan Referrals: [facility] [Outside] - 05/18/18 1:00 pm (The above appointment is with Jill Jackson for substance abuse and mental health counseling. You will also see Saba Louis on 06/02/2018 at 1130am for psychiatric assessment and medication management. Please bring photo ID and insurance card.) Psychiatry Exam - Constitutional Vitals: Temp Pulse Resp BP 98 F 66 20 126/80 05/10/18 09:00 05/10/18 09:00 05/10/18 09:00 05/10/18 09:00 General appearance: age & developmentally appropriate - Musculoskeletal Gait: normal Station: other Strength & Tone: normal for patient - Psychiatric Patient Orientation: Yes Person, Yes Time, Yes Place Level of alertness: Alert Behavior: calm, cooperative Psychomotor activity: Normal Eye Contact: Maintains Eye Contact Mood Description: Euthymic/stable Affect description: blunted Speech Volume: Normal Speech pattern: slowed Language & Vocabulary: limited Thought Process: [place] Thought Content: Yes Preoccupation Attention Span Ability: Unable to Sustain Attention Memory Description: Grossly Intact Patient Reliability: Questionable Historian Intelligence Estimate: Average Judgment: Poor Insight: Minimal
[2018-05-10 13:12] LABS: Hematocrit 41.2 % (37.5-50.1); Mean Corpuscular HGB Conc 35.4 g/dL (31.6-35.5); Mean Corpuscular Hemoglobin 31.5 pg (28.0-33.3); Mean Platelet Volume 10.9 fL (9.4-12.4); Platelet Count 353 K/mcL (140-400); Red Blood Count 4.63 M/mcL (4.19-5.50)
[2018-05-10 13:18] LABS: Hemoglobin 14.6 g/dL (12.9-16.9)
[2018-05-10 13:43] LABS: Alanine Aminotransferase 29 Units/L (7-52); Albumin 3.9 g/dL (3.5-5.7); Albumin/Globulin Ratio 1.4 (1.1-2.2); Alkaline Phosphatase 76 Units/L (34-104); Aspartate Amino Transferase 19 Units/L (13-39); BUN/Creatinine Ratio 10 (6-26); Bilirubin,Total 0.6 mg/dL (0.3-1.0); Blood Urea Nitrogen 11 mg/dL (6-20); Calcium 9.3 mg/dL (8.6-10.3); Carbon Dioxide 26 mEq/L (23-29); Chloride 108 mEq/L (98-107); Globulin 2.8 g/dL (2.4-3.5); Glucose 103 mg/dL (70-105); Osmolality,Calculated 292 (280-300); Potassium 3.9 mEq/L (3.5-5.1); Sodium 141 mEq/L (136-145); Total Protein 6.7 g/dL (6.4-8.9); eGFR For Non-African Americans > 60 (> 60)
[2018-05-10] MEDS: Acetaminophen 325 MG TABLET PO PRN (20:28)
[2018-05-10] MEDS: traZODone 50 MG TABLET PO PRN (20:28)
[2018-05-10] MEDS: hydrOXYzine pamoate 25 MG CAPSULE PO PRN (20:28)
[2018-05-11] MEDS: levoFLOXacin 750 MG TABLET PO SCH (08:42)
[2018-05-11] MEDS ORDERED: *HR* LORazepam Oral Conc 2 MG/ML PO SCH (10:00)
[2018-05-11] MEDS: *HR* LORazepam 1 MG TABLET PO SCH ×3 (10:20→20:25)
--- NOTE | 2018-05-11 13:19 | Psychiatry Progress Note ---
Date of Encounter: 05/11/18 Time of Encounter: 13:00 Subjective Interval history: Patient seen today , case d/w treatment tea, . he had episode of again getting his hands rigid and his neck he denies a/v hallucination and denies anxiety will start 2 mg ativan tid for his catatonia and will slowly taper the dose. contniue close observation. Review of Systems Psychiatric: Reports: anxiety, abnormal sleep pattern, auditory hallucinations, visual hallucinations, confusion, difficulty concentrating Results - Vital Signs Vital Signs: Temp Pulse Resp BP 97.9 F 75 18 138/86 05/11/18 09:00 05/11/18 09:00 05/11/18 09:00 05/11/18 09:00 - Labs Labs: Laboratory Results - last 24 hr 05/10/18 05/10/18 12:57 12:57 WBC 7.6 RBC 4.63 Hgb 14.6 D Hct 41.2 MCV 89.0 MCH 31.5 MCHC 35.4 RDW 12.0 Plt Count 353 MPV 10.9 Sodium 141 Potassium 3.9 Chloride 108 H Carbon Dioxide 26 BUN 11 Creatinine 1.05 Est GFR ( Amer) > 60 Est GFR (Non-Af Amer) > 60 BUN/Creatinine Ratio 10 Glucose 103 Calculated Osmolality 292 Calcium 9.3 Total Bilirubin 0.6 AST 19 ALT 29 Alkaline Phosphatase 76 Serum Total Protein 6.7 Albumin 3.9 Globulin 2.8 Albumin/Globulin Ratio 1.4 Assessment and Plan (1) Schizophrenia Current visit: No Status: Chronic Risks, benefits, side effects, alternatives discussed w/pt: Yes Patient agreeable to treatment: Yes Qualifiers: Schizophrenia type: catatonic schizophrenia Qualified Code(s): F20.2 - Catatonic schizophrenia (2) Polysubstance abuse Current visit: No Status: Acute Risks, benefits, side effects, alternatives discussed w/pt: Yes Patient agreeable to treatment: Yes Consult Discharge Plan - Plan Referrals: [facility] [Outside] - 05/18/18 1:00 pm (The above appointment is with Jill Jackson for substance abuse and mental health counseling. You will also see Saba Heriberto on 06/02/2018 at 1130am for psychiatric assessment and medication management. Please bring photo ID and insurance card.) Psychiatry Exam - Constitutional Vitals: Temp Pulse Resp BP 97.9 F 75 18 138/86 05/11/18 09:00 05/11/18 09:00 05/11/18 09:00 05/11/18 09:00 General appearance: age & developmentally appropriate - Musculoskeletal Gait: normal Station: other Strength & Tone: normal for patient - Psychiatric Patient Orientation: Yes Person, Yes Time, Yes Place Level of alertness: Alert Behavior: calm, cooperative Psychomotor activity: Slowed Eye Contact: Maintains Eye Contact Mood Description: Euthymic/stable Affect description: blunted Speech Volume: Soft/Quiet Speech pattern: slowed Language & Vocabulary: consistent with education Thought Process: [place] Thought Content: Yes Preoccupation Attention Span Ability: Unable to Sustain Attention Memory Description: Grossly Intact Patient Reliability: Questionable Historian Fund of knowledge: Yes below average Intelligence Estimate: Below Average Judgment: Poor Insight: Minimal
--- NOTE | 2018-05-11 15:02 | Electrocardiograph Report ---
[place] [id number] Test Date: 2018-05-09 Pat Name: Gabbi Miller Department: 101 Room: 1A Gender: M Principal Database Developer: : 1980 Requested By: Debra Shay Order Number: [id number] Reading MD: Mode Melgar Measurements Intervals [place] Rate: 51 P: -19 HI: 126 QRS: 32 QRSD: 95 T: 30 QT: 446 QTc: 421 Interpretive Statements SINUS BRADYCARDIA WITH SINUS ARRHYTHMIA Electronically Signed On 05-11-2018 15:01:06 EDT by Mode Melgar
[2018-05-11] MEDS: traZODone 50 MG TABLET PO PRN (20:27)
[2018-05-11] MEDS: hydrOXYzine pamoate 25 MG CAPSULE PO PRN (20:27)
[2018-05-12] MEDS: levoFLOXacin 750 MG TABLET PO SCH (08:42)
[2018-05-12] MEDS: *HR* LORazepam 1 MG TABLET PO SCH ×3 (08:42→20:22)
--- NOTE | 2018-05-12 11:06 | Psychiatry Progress Note ---
Date of Encounter: 05/12/18 Time of Encounter: 10:45 Subjective Interval history: Patient seen today , case d/w treatment team. patient as per staff seen talsing to himself. AT present in session he denied a/v hallucinations, denied paranoia but seemed internally preoccupied , he was little restless, he denies rigidity , no stiffness. his antipsychotics are on hold as he has had stiffness and rigidity and catatonia , he is on ativan which is helping him. would continue observation . 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 You will also see Saba Louis on 06/02/2018 at 1130am for psychiatric assessment and medication management. Please bring photo ID and insurance card.) Psychiatry Exam - Constitutional Vitals: Temp Pulse Resp BP 98.7 F 87 18 135/89 05/12/18 09:00 05/12/18 09:00 05/12/18 09:00 05/12/18 09:00 General appearance: age & developmentally appropriate - Musculoskeletal Gait: normal Station: other Strength & Tone: normal for patient - Psychiatric Patient Orientation: Yes Person, Yes Time, Yes Place Level of alertness: Alert Behavior: cooperative Psychomotor activity: Normal Eye Contact: Maintains Eye Contact Mood Description: Euthymic/stable Affect description: blunted Speech Volume: Normal Speech pattern: slowed Language & Vocabulary: limited Thought Process: [place] Thought Content: Yes Preoccupation Attention Span Ability: Unable to Sustain Attention Memory Description: Grossly Intact Patient Reliability: Questionable Historian Fund of knowledge: Yes below average Intelligence Estimate: Below Average Judgment: Limited Insight: Minimal
[2018-05-12] MEDS: Acetaminophen 325 MG TABLET PO PRN (20:22)
[2018-05-12] MEDS: traZODone 50 MG TABLET PO PRN (20:22)
[2018-05-12] MEDS: hydrOXYzine pamoate 25 MG CAPSULE PO PRN (20:23)
[2018-05-13] MEDS: levoFLOXacin 750 MG TABLET PO SCH (08:30)
[2018-05-13] MEDS: *HR* LORazepam 1 MG TABLET PO SCH ×3 (08:30→20:21)
--- NOTE | 2018-05-13 11:37 | Psychiatry Progress Note ---
Date of Encounter: 05/13/18 Time of Encounter: 11:15 Subjective Interval history: Patient seen today case d/w treatment team. he aain had episode of muscle rigidity and neck was stiff with pain after , he improved with prn medication He is denying auditory and visual hallucination , denies psychosis , he has been more verbal and pacing . will add depakte 250 mg bid and no antipsychotic because of his c/o rigidity and eps s/s. he has h/o NMS and also catatonia , will continue monitoring and will continue ativan at present for his catatonia , which has improved . continue same rx nelida add depakote 250 mg bid. informed consent obtained. 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 You will also see Saba Heriberto on 06/02/2018 at 1130am for psychiatric assessment and medication management. Please bring photo ID and insurance card.) Psychiatry Exam - Constitutional Vitals: Temp Pulse Resp BP 98.3 F 124 18 113/88 05/13/18 09:00 05/13/18 09:00 05/13/18 09:00 05/13/18 09:00 General appearance: age & developmentally appropriate, unkempt - Musculoskeletal Gait: normal Station: other Strength & Tone: normal for patient - Psychiatric Patient Orientation: Yes Person, Yes Time, Yes Place Level of alertness: Alert Behavior: calm, cooperative Psychomotor activity: Normal Eye Contact: Maintains Eye Contact Mood Description: Euthymic/stable Affect description: blunted Speech Volume: Normal Speech pattern: normal rate, normal rhythm, normal tone Language & Vocabulary: consistent with education Thought Process: Thought Blocking Thought Content: Yes Preoccupation Attention Span Ability: Unable to Sustain Attention Memory Description: Grossly Intact Patient Reliability: Questionable Historian Fund of knowledge: Yes below average Intelligence Estimate: Below Average Judgment: Poor Insight: Minimal
[2018-05-13] MEDS: Lurasidone 20 MG TABLET PO SCH (12:41)
[2018-05-13] MEDS: Divalproex (12 HR) 250 MG TABLET PO SCH ×2 (15:19→20:22)
[2018-05-13] MEDS: Acetaminophen 325 MG TABLET PO PRN (20:21)
[2018-05-13] MEDS: traZODone 50 MG TABLET PO PRN (20:21)
[2018-05-13] MEDS: hydrOXYzine pamoate 25 MG CAPSULE PO PRN (20:22)
[2018-05-14] MEDS: Lurasidone 20 MG TABLET PO SCH (09:00)
[2018-05-14] MEDS: levoFLOXacin 750 MG TABLET PO SCH (09:00)
[2018-05-14] MEDS: *HR* LORazepam 1 MG TABLET PO SCH ×3 (09:00→20:11)
[2018-05-14] MEDS: Divalproex (12 HR) 250 MG TABLET PO SCH ×2 (09:00→20:12)
--- NOTE | 2018-05-14 10:00 | Psychiatry Progress Note ---
Date of Encounter: 05/14/18 Time of Encounter: 09:30 Subjective Interval history: Is a 37-year-old male. He is well known to the service. Chief complaint "I do not hear any voices. History of present illness: The patient is known to me from previous hospitalizations and consultation on the floor. At that time the patient had lethal catatonia when asked about this event he says that he was trying to get out. Did not like to lie still. The patient was almost placed in restraints and required 60 mg of Geodon IM as well as multiple doses of Ativan. He is currently on an antipsychotic at 20 mg per day and reports no trouble with the voices and no trouble with delusions or paranoia. The patient did receive Cogentin and does not have any dystonic posturing. He has some soreness in the neck muscle rate along cervical spine. I did not additional examination and I did not find it difficult rigidity dystonia or tremor. The patient is not complaining of dystonia although he was observed to have his neck turned to one side previously. The patient does not feel that he needs to stop medicines. The patient has noncompliance as demonstrated by a very low valproic acid level. The patient is able to tell me that at times when he was immobile or refusing to speak that he was acting under belief that something bad would happen if moved The patient has been evaluated for neuroleptic malignant syndrome but the most recent episode represents lethal catatonia. Patient remains at some risk for neuroleptic malignant syndrome. I will order another valproic acid and iron study is a low serum iron is a risk factor for NMS I do not see evidence of dystonia. My option would be to add amantadine or continue the scheduled medicines at this point I will continue scheduled medications. The patient understands that his discharge plan will be to go to the [facility] Review of Systems Neurological: Reports: other Psychiatric: Reports: anxiety, abnormal sleep pattern, confusion, difficulty concentrating Results - Vital Signs Vital Signs: Temp Pulse Resp BP 97.1 F L 119 18 125/89 05/14/18 09:00 05/14/18 09:00 05/14/18 09:00 05/14/18 09:00 Assessment and Plan (1) Catatonia associated with another mental disorder Current visit: Yes Status: Acute Plan: Continue hospitalization, Close observation, Encourage participation in unit milieu, Monitor appetite, Secure weapons Risks, benefits, side effects, alternatives discussed w/pt: Yes Patient agreeable to treatment: Yes (2) Patient's noncompliance with other medical treatment and regimen Current visit: Yes Status: Chronic Plan: Suicide Precautions per unit protocol, Encourage participation in unit milieu Risks, benefits, side effects, alternatives discussed w/pt: Yes Patient agreeable to treatment: Yes (3) Schizophrenia Current visit: No Status: Chronic Plan: Continue hospitalization, Close observation, Suicide Precautions per unit protocol, Encourage participation in unit milieu, Group Therapy, Monitor sleep, Monitor appetite, Secure weapons, Family/Supportive other meeting Risks, benefits, side effects, alternatives discussed w/pt: Yes Patient agreeable to treatment: Yes Qualifiers: 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 You will also see Saba Louis on 06/02/2018 at 1130am for psychiatric assessment and medication management. Please bring photo ID and insurance card.) Psychiatry Exam - Constitutional Vitals: Temp Pulse Resp BP 97.1 F L 119 18 125/89 05/14/18 09:00 05/14/18 09:00 05/14/18 09:00 05/14/18 09:00 General appearance: unkempt, obese - Musculoskeletal Gait: normal Station: stooped Strength & Tone: normal for patient - Psychiatric Patient Orientation: Yes Person, Yes Time, Yes Place, Yes Circumstance Level of alertness: Alert Behavior: calm, cooperative Psychomotor activity: Normal Eye Contact: Minimal Contact Mood Description: Other Affect description: constricted Speech Volume: Normal Speech pattern: normal rate Language & Vocabulary: consistent with education Thought Process: Intact, [place], Slowed Thinking Thought Content: Yes Restoration delusion Attention Span Ability: Capable of Sustained Attention Memory Description: Grossly Intact Patient Reliability: Not Reliable Historian Fund of knowledge: Yes below average Intelligence Estimate: Below Average Judgment: Limited Insight: Minimal
[2018-05-14] MEDS: hydrOXYzine pamoate 25 MG CAPSULE PO PRN ×2 (12:38→20:12)
[2018-05-14] MEDS: Acetaminophen 325 MG TABLET PO PRN ×2 (13:25→20:11)
[2018-05-14] MEDS: traZODone 50 MG TABLET PO PRN (20:12)
[2018-05-15] MEDS: Lurasidone 20 MG TABLET PO SCH (10:07)
[2018-05-15] MEDS: levoFLOXacin 750 MG TABLET PO SCH (10:07)
[2018-05-15] MEDS: *HR* LORazepam 1 MG TABLET PO SCH ×3 (10:07→20:23)
[2018-05-15] MEDS: Divalproex (12 HR) 250 MG TABLET PO SCH ×2 (10:07→20:23)
--- NOTE | 2018-05-15 12:02 | Psychiatry Progress Note ---
Date of Encounter: 05/15/18 Time of Encounter: 12:00 Subjective Interval history: ID patient is a 37-year-old single white male. Chief complaint "I am not having any stiffness" History of present illness. Previously the patient had some dystonic posturing and still has some abnormality when walking read this is not bothersome today he reports no difficulty with neck stiffness or swallowing. But he is just gotten up. The patient has remained on Ativan and low-dose antipsychotic for the treatment of schizophrenia with lethal catatonia. Lethal catatonia is not returned. I added amantadine yesterday to help with dystonic posturing. The patient will be given the code G 24.02. This code can refer her to either an acute dystonia or a tardive dystonia. It is difficult for me to tell the dystonia does not appear to be activated by movements and other parts the body. The dystonia has come and gone. Nonetheless an acute dystonia on 20 mg of the antipsychotic is unlikely but still possible. The underlying neurologic disorder schizophrenia as associated with dystonia and dyskinesias. Review of the patient's head CT showed some amount of global atrophy and significant ventriculomegaly and suggests the advancement of ADULT NEUROPSYCHOLOGIST deterioration at the level of brain imaging. The patient has not reported significant psychosis delusions or catatonia or delusions of passivity. Today the patient is up and walking and socializing and eating without significant difficulty Review of Systems Psychiatric: Reports: anxiety, abnormal sleep pattern, difficulty concentrating Results - Vital Signs Vital Signs: Temp Pulse Resp BP 97.8 F 85 16 118/79 05/14/18 19:45 05/14/18 19:45 05/14/18 19:45 05/14/18 19:45 Assessment and Plan (1) Catatonia associated with another mental disorder Current visit: Yes Status: Acute Plan: Continue hospitalization, Close observation, Suicide Precautions per unit protocol, Encourage participation in unit milieu, Monitor appetite Risks, benefits, side effects, alternatives discussed w/pt: Yes Patient agreeable to treatment: Yes (2) Patient's noncompliance with other medical treatment and regimen Current visit: Yes Status: Chronic Plan: Continue hospitalization, Close observation, Group Therapy, Family/ Supportive other meeting Risks, benefits, side effects, alternatives discussed w/pt: Yes Patient agreeable to treatment: Yes (3) Schizophrenia Current visit: No Status: Chronic Plan: Continue hospitalization, Close observation, Suicide Precautions per unit protocol, Encourage participation in unit milieu Risks, benefits, side effects , alternatives discussed w/pt: Yes Patient agreeable to treatment: Yes Qualifiers: 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 You will also see Saba Louis on 06/02/2018 at 1130am for psychiatric assessment and medication management. Please bring photo ID and insurance card.) Psychiatry Exam - Constitutional Vitals: Temp Pulse Resp BP 97.8 F 85 16 118/79 05/14/18 19:45 05/14/18 19:45 05/14/18 19:45 05/14/18 19:45 General appearance: age & developmentally appropriate, well-groomed, well- nourished, disheveled, obese - Musculoskeletal Gait: slow Station: shaky Strength & Tone: abnormal extension, abnormal flexion - Psychiatric Patient Orientation: Yes Person, Yes Time, Yes Place, Yes Circumstance Level of alertness: Alert Behavior: calm, cooperative Psychomotor activity: Repetitive movements Eye Contact: Maintains Eye Contact Mood Description: Anxious Affect description: congruent with mood, full range, blunted Speech Volume: Normal Speech pattern: normal rate, normal rhythm, normal tone, fluent, spontaneous Language & Vocabulary: consistent with education Thought Process: Linear, Goal Oriented Thought Content: No Suicidal ideation, No Homicidal ideation, No Overt delusions Perceptual Disturbances: No Auditory hallucinations, No Visual hallucinations Attention Span Ability: Capable of Focused Attention Memory Description: Grossly Intact Patient Reliability: Not Reliable Historian Fund of knowledge: Yes below average Judgment: Limited Insight: Minimal
[2018-05-15] MEDS: traZODone 50 MG TABLET PO PRN (20:23)
[2018-05-15] MEDS: Acetaminophen 325 MG TABLET PO PRN (20:33)
[2018-05-15] MEDS: hydrOXYzine pamoate 25 MG CAPSULE PO PRN (21:40)
[2018-05-16] MEDS: Lurasidone 20 MG TABLET PO SCH (08:35)
[2018-05-16] MEDS: *HR* LORazepam 1 MG TABLET PO SCH ×3 (08:35→20:02)
[2018-05-16] MEDS: Divalproex (12 HR) 250 MG TABLET PO SCH ×2 (08:35→20:03)
[2018-05-16 11:40] LABS: % Iron Saturation 38 % (20-55); Iron 144 mcg/dL (65-175); Transferrin 269 mg/dL (203-362); Valproate 25 mcg/mL (50-100)
--- NOTE | 2018-05-16 14:34 | Psychiatry Progress Note ---
Date of Encounter: 05/16/18 Time of Encounter: 14:31 Subjective Interval history: Patient seen for follow-up. Case discussed was treatment team. Patient is well known to me from previous admissions, decompensated due to noncompliance with treatment and substance abuse. He denies any EPS. He is tolerating current medication without any problems. Denies any problem with sleep or appetite. His discharge plans are in progress by social work. Review of Systems Psychiatric: Reports: anxiety, abnormal sleep pattern, difficulty concentrating Results - Vital Signs Vital Signs: Temp Pulse Resp BP 98.1 F 103 18 116/80 05/16/18 09:00 05/16/18 09:00 05/16/18 09:00 05/16/18 09:00 - Labs Labs: Laboratory Results - last 24 hr 05/16/18 08:50 Iron 144 % Saturation 38 Transferrin 269 Valproic Acid 25 L Consult Discharge Plan - Plan Referrals: [facility] [Outside] - 05/18/18 1:00 pm (The above appointment is with Jill Jackson for substance abuse and mental health counseling. You will also see Saba Heriberto on 06/02/2018 at 1130am for psychiatric assessment and medication management. Please bring photo ID and insurance card.) Psychiatry Exam - Constitutional Vitals: Temp Pulse Resp BP 98.1 F 103 18 116/80 05/16/18 09:00 05/16/18 09:00 05/16/18 09:00 05/16/18 09:00 General appearance: age & developmentally appropriate, well-nourished, disheveled, bizarre, obese - Musculoskeletal Gait: normal Station: relaxed Strength & Tone: normal for patient - Psychiatric Patient Orientation: Yes Person, Yes Time, Yes Place Level of alertness: Alert Behavior: calm, cooperative Psychomotor activity: Normal Eye Contact: Fleeting Contact Mood Description: Euthymic/stable Affect description: congruent with mood, full range Speech Volume: Normal Speech pattern: normal rate, normal rhythm, normal tone, fluent, spontaneous, limited Language & Vocabulary: consistent with education Thought Process: Linear, Goal Oriented Thought Content: No Suicidal ideation, No Homicidal ideation, No Overt delusions Perceptual Disturbances: No Auditory hallucinations, No Visual hallucinations Attention Span Ability: Capable of Focused Attention Memory Description: Grossly Intact Patient Reliability: Not Reliable Historian Fund of knowledge: Yes abstraction ability, Yes aware of current events Intelligence Estimate: Average Judgment: Limited Insight: Partial
[2018-05-16] MEDS: hydrOXYzine pamoate 25 MG CAPSULE PO PRN (20:03)
[2018-05-16] MEDS: Acetaminophen 325 MG TABLET PO PRN (20:03)
[2018-05-16] MEDS: traZODone 50 MG TABLET PO PRN (20:03)
[2018-05-17] MEDS: Lurasidone 20 MG TABLET PO SCH (08:44)
[2018-05-17] MEDS: Divalproex (12 HR) 250 MG TABLET PO SCH ×2 (08:44→20:01)
[2018-05-17] MEDS: *HR* LORazepam 1 MG TABLET PO SCH ×3 (08:44→20:00)
--- NOTE | 2018-05-17 14:46 | Psychiatry Progress Note ---
Date of Encounter: 05/17/18 Time of Encounter: 14:43 Subjective Interval history: Patient seen for follow-up. Case discussed with treatment team. Staff report patient is medication compliant, cooperative, able to carry casual conversation. Is no report of overt hallucination or psychosis he paces always most of the time. No agitation sleep and appetite stable. Review of Systems Psychiatric: Reports: anxiety, abnormal sleep pattern, difficulty concentrating Results - Vital Signs Vital Signs: Temp Pulse Resp BP 98.7 F 98 20 114/83 05/17/18 08:54 05/17/18 08:54 05/17/18 08:54 05/17/18 08:54 Consult Discharge Plan - Plan Referrals: [facility] [Outside] - 05/25/18 1:00 pm (The above appointment is with Jill Jackson for substance abuse and mental health counseling. You will also see Saba Louis on 06/02/2018 at 1130am for psychiatric assessment and medication management. Please bring photo ID and insurance card.) Psychiatry Exam - Constitutional Vitals: Temp Pulse Resp BP 98.7 F 98 20 114/83 05/17/18 08:54 05/17/18 08:54 05/17/18 08:54 05/17/18 08:54 General appearance: age & developmentally appropriate, well-groomed, well- nourished, bizarre, obese - Musculoskeletal Gait: normal Station: relaxed Strength & Tone: normal for patient - Psychiatric Patient Orientation: Yes Person, Yes Time, Yes Place Level of alertness: Alert Behavior: calm, cooperative Psychomotor activity: Normal Eye Contact: Fleeting Contact Mood Description: Euthymic/stable Affect description: congruent with mood, full range Speech Volume: Normal Speech pattern: normal rate, normal rhythm, normal tone, fluent, spontaneous Language & Vocabulary: consistent with education Thought Process: Linear, Goal Oriented, Tangential Thought Content: No Suicidal ideation, No Homicidal ideation, No Overt delusions Perceptual Disturbances: No Auditory hallucinations, No Visual hallucinations Attention Span Ability: Capable of Focused Attention Memory Description: Grossly Intact Patient Reliability: Reliable Historian Fund of knowledge: Yes abstraction ability, Yes aware of current events Intelligence Estimate: Average Judgment: Limited Insight: Partial
[2018-05-17] MEDS: Acetaminophen 325 MG TABLET PO PRN (19:59)
[2018-05-17] MEDS: hydrOXYzine pamoate 25 MG CAPSULE PO PRN (20:01)
[2018-05-17] MEDS: traZODone 50 MG TABLET PO PRN (20:01)
[2018-05-18] MEDS: *HR* LORazepam 1 MG TABLET PO SCH (09:14)
[2018-05-18] MEDS: Lurasidone 20 MG TABLET PO SCH (09:14)
[2018-05-18] MEDS: Divalproex (12 HR) 250 MG TABLET PO SCH (09:14)
[2018-05-18 09:42] VITALS: BP 106/77
--- NOTE | 2018-05-18 10:39 | Discharge Summary ---
Date of Encounter: 05/18/18 Time of Encounter: 10:36 Diagnosis - Discharge Diagnosis (1) Schizophrenia, paranoid, chronic with acute exacerbation Status: Acute (2) Catatonia associated with another mental disorder Status: Acute Medications - Discharge Medications Prescriptions: Amantadine [Symmetrel] 100 mg PO BID #60 capsule Lurasidone [Latuda] 60 mg PO DAILY #45 tablet Nicotine Gum [Nicorette gum] 4 mg BC Q2H PRN #60 gum PRN Reason: Nicotine Cravings Benztropine [Cogentin] 1 mg PO BID 30 Days #60 tablet 12/21/17 [Rx] Divalproex (12 HR) [Depakote (12 HR)] 250 mg PO BID 30 Days #60 tablet.dr [Rx] Lisinopril [Zestril] 5 mg PO DAILY 30 Days #30 tablet 12/21/17 [Rx] Naltrexone HCl 50 mg PO DAILY 30 Days #30 tablet 12/21/17 [Rx] Propranolol [Inderal] 20 mg PO BID 30 Days #60 tablet 12/21/17 [Rx] Rivaroxaban [Xarelto] 20 mg PO DAILY 30 Days #30 tablet 12/21/17 [Rx] hydrOXYzine pamoate [HydrOXYzine Pamoate] 25 mg PO TID PRN 30 Days #90 capsule 12/21/17 [Rx] Amantadine [Symmetrel] 100 mg PO BID #60 capsule 05/18/18 [Rx] Lurasidone [Latuda] 60 mg PO DAILY #45 tablet 05/18/18 [Rx] Nicotine Gum [Nicorette gum] 4 mg BC Q2H PRN #60 gum 05/18/18 [Rx] 3 Allergy/AdvReac Type Severity Reaction Status Date / Time No Known Allergies Allergy Verified 04/19/18 13:34 Results Procedures and tests throughout hospitalization: Completed Lab Orders Category Date Time Status CBC no Diff [Complete Blood Count w/o Diff] [HEME] Lab 05/10/18 12:57 Completed Routine CMP [Comprehensive Metabolic Panel] Routine Lab 05/10/18 12:57 Completed Iron Profile Routine Lab 05/16/18 08:50 Completed Valproate Routine Lab 05/16/18 08:50 Completed Provider Date of admission: 05/08/18 16:52 Primary care physician: PCP NONE Discharging clinician: Antonio Philip Psychiatry Exam - Constitutional Vitals: Temp Pulse Resp BP 98.1 F 103 20 106/77 05/18/18 09:00 05/18/18 09:00 05/18/18 09:00 05/18/18 09:00 General appearance: age & developmentally appropriate, well-groomed, well- nourished, obese - Musculoskeletal Gait: normal Station: relaxed Strength & Tone: normal for patient - Psychiatric Patient Orientation: Yes Person, Yes Time, Yes Place Level of alertness: Alert Behavior: calm, cooperative, withdrawn Psychomotor activity: Normal Eye Contact: Maintains Eye Contact Mood Description: Euthymic/stable Affect description: congruent with mood, full range Speech Volume: Normal Speech pattern: normal rate, normal rhythm, normal tone, fluent, limited Language & Vocabulary: consistent with education Thought Process: Linear, Goal Oriented Thought Content: No Suicidal ideation, No Homicidal ideation, No Overt delusions Perceptual Disturbances: No Auditory hallucinations, No Visual hallucinations Attention Span Ability: Capable of Focused Attention Memory Description: Grossly Intact Patient Reliability: Reliable Historian Fund of knowledge: Yes abstraction ability, Yes aware of current events Intelligence Estimate: Average Judgment: Limited Insight: Partial Hospital Course Hospital course: Mr. Miller is a 37 year old male admitted for stabilization of schizophrenia chronic paranoid type and substance abuse and noncompliance with treatment. For details of admission please see H&P On the units patient was started on medication including Depakote and Latuda, he tolerated medication well and did not experience any side effects. He was medication compliant and cooperative and reported stable sleep and appetite. Prior to discharge patient was not showing any signs of psychosis, he pace the hallways and interacted appropriately with staff and peers. Patient was medically stable and did not endorse any hallucination or suicidal ideation. He was educated and advised regarding substance abuse and maintain his sobriety. tail board worker completed discharge plans and follow-up at [facility]. Patient is discharged in stable condition. - Time Spent with Patient Total time spent providing and/or coordinating discharge services: Less than 30 minutes Assessment and Plan - Patient/Caregiver Discharge Instructions Activity: resume usual activities as tolerated Diet: regular diet - Follow up Plan Follow up with: [facility] [Outside] - 05/25/18 1:00 pm (The above appointment is with Jill Jackson for substance abuse and mental health counseling. You will also see Saba Louis on 06/02/2018 at 1130am for psychiatric assessment and medication management. Please bring photo ID and insurance card.) Functional capacity at discharge: independent ambulation Overall status at discharge: Stable Disposition: Home, Self-Care Quality - Multiple Antipsychotics Patient discharged on 2 or more antipsychotic medications: No Procedures - Procedures Procedures: Medication Management, Crisis Stabilization, Supportive Therapy, Group Therapy, Psychoeducational Therapy
== END 2018-05-18 12:00 | disposition home or self-care (01) | DRG 750 ==
LOC: SUATTDRO 16:52 → 1ANU 16:52
PROVIDERS: ADMIT Psychiatry & Neurology Psychiatry; ATTEND Psychiatry & Neurology Psychiatry

== ENCOUNTER 2018-05-24 14:39 | Observation (INO) ==
[2018-05-24] MEDS ORDERED: Aspirin 81 MG TAB.CHEW PO ONE (14:44)
--- NOTE | 2018-05-24 14:50 | Emergency Department Note ---
Disposition Clinical Impression: Chest pain Qualifiers: Chest pain type: other chest pain Qualified Code(s): R07.89 - Other chest pain Disposition: Admitted As Inpatient Condition: Good Instructions: Chest Pain (ED) Reasons to Return/Additional Instructions: Return to the emergency department if your symptoms persist or worsen. Return if you have any new or concerning symptoms. Continue your home medications as prescribed. Please follow-up with your primary care physician in the next 5-7 days or sooner if needed. If you do not have a primary care physician, please contact the residency clinic at the provided phone number to establish with a physician and schedule appropriate follow-up. Referrals: NONE,PCP [Primary Care Provider] - [facility] [Outside] Forms: ED Satisfaction Letter Time of Disposition: 16:17 General Adult HPI - General Chief complaint: ED Chest Pain Stated complaint: Left chest pain & left neck pain Time Seen by Provider: 05/24/18 14:44 Nursing Notes Reviewed: Yes Vital Signs Reviewed: Yes - History of Present Illness HPI Narrative: 37yo male presents from [facility] via EMS for evaluation of left sided chest and neck pain. Onset just prior to arrival. Associated with dyspnea. He has never had any previous similar symptoms. PMH: HTN, schizophrenia Habits: current everyday smoker ROS: Pos: as above Neg: fever, chills, diaphoresis, nausea, vomiting, palpitations, arm weakness/ heaviness, back pain - Related Data Home Medications Medication Instructions Recorded Confirmed Quetiapine Fumarate [Seroquel] 400 mg PO HS 05/24/18 05/24/18 Previous Rx's Medication Instructions Recorded Benztropine [Cogentin] 1 mg PO BID 30 Days #60 tablet 12/21/17 Divalproex (12 HR) [Depakote (12 250 mg PO BID 30 Days #60 tablet. 12/21/17 HR)] Naltrexone HCl 50 mg PO DAILY 30 Days #30 tablet 12/21/17 Propranolol [Inderal] 20 mg PO BID 30 Days #60 tablet 12/21/17 hydrOXYzine pamoate [HydrOXYzine 25 mg PO TID PRN 30 Days #90 12/21/17 Pamoate] capsule Amantadine [Symmetrel] 100 mg PO BID #60 capsule 05/18/18 Lurasidone [Latuda] 60 mg PO DAILY #45 tablet 05/18/18 Nicotine Gum [Nicorette gum] 4 mg BC Q2H PRN #60 gum 05/18/18 Allergies Allergy/AdvReac Type Severity Reaction Status Date / Time No Known Allergies Allergy Verified 05/24/18 14:45 All systems ED: reviewed and negative except as stated. Review of Systems: As Per HPI Past Medical History - Past Medical History Medical history: Reports: hypertension, pulmonary embolus Surgical history: Reports: appendectomy, arthroscopy Psychiatric history: Reports: schizophrenia, previous psychiatric hospitalization - Social History Smoking Status: Current every day smoker Smokeless Tobacco Status: No Alcohol use: Reports: occasionally Drug use: Reports: cocaine, marijuana, methamphetamine Physical Exam Vital Signs Reviewed General: Patient is alert, oriented, and in no acute distress. Head: atraumatic, normocephalic Eye: normal appearance, PERRL, EOMI, no scleral icterus, no conjunctival injection ENT: mucous membranes moist, normal external ear exam. Poor dentition. No facial asymmetry discernible through patient's lerner. No tenderness palpation of the gingiva near the patient's left lower molar. No anterior or posterior cervical lympadenopathy or neck asymmetry. Neck: normal inspection, trachea midline, full ROM Chest: normal inspection, symmetric chest rise. Pain to palpation over left chest wall. Respiratory: Good respiratory effort. Bilateral breath sounds are equal with scant wheeze. No crackles or rhonchi. Cardiovascular: Regular rate and rhythm. No clicks, rubs, gallops, or murmors. Normal heart sounds. Abdomen: Bowel sounds present normoactive x-4 quadrants. Abdomen is soft, nondistended, and nontender. No guarding or rebound. No organomegaly noted. Musculoskeletal: Spontaneously moving all extremities. Skin: warm, dry, intact. Neuro: GCS 15 Alert and oriented x4. Sensation light touch intact. Psych: Patient's affect is flat. He answers questions in yes or no manner and a monotone voice. Course Course Narrative: EKG dated 05/24/2018 at 14:58 interpreted as sinus rhythm with a rate of 86. QTC 448. Normal axis. Nonspecific ST-T changes. Compared to previous EKG dated 05/09/2018 showing no acute ischemic changes or comparison. EKG unremarkable. CXR unremarkable Serum hematology is unremarkable. Serum chemistries unremarkable. Initial troponin measured at 14:46 is normal. On re-evaluation, patient is not moving. He states the voices will not let him move. He is well known to our mental health team; they currently do not have any beds. Additionally, the patient will need to have his troponin trended. He does have a history of PE; no current anticoagulant. He is not tachycardic or hypoxic. Chart check of psychiatric note shows the patient has a long history of noncompliance with his schizophrenia medications as well as poor insight and judgment as well as illicit substance use. Mental health team is willing to accept the patient after serial troponins for definitive cardiac rule out. Discussed the patient with the admitting hospitalist, Dr. Leyva, who agrees to accept the patient for medical admission with mental health team evaluated for continued evaluation and management. Chest X-Ray 05/24/18 14:44 IMPRESSION: No acute cardiopulmonary disease. D/ / Cristopher Clinton MD / Cristopher Clinton MD Interpreting Provider: Cristopher Clinton MD Abdomen/Pelvis CT 05/24/18 14:45 IMPRESSION: Unremarkable unenhanced CT abdomen and pelvis. D/ / Janeth Min / Janeth Min Interpreting Provider: Janeth Min Vital Signs O2 Sat by Pulse Oximetry 97 05/24/18 15:10 Temperature 98.6 F 05/24/18 15:11 Pulse Rate 99 05/24/18 16:30 Respiratory Rate 20 05/24/18 16:30 Blood Pressure 148/111 05/24/18 16:30 O2 Sat by Pulse Oximetry 97 05/24/18 16:30 Oxygen Delivery Oxygen Delivery Room Air Medical Decision Making - Lab Data Result diagrams: 05/24/18 14:54 05/24/18 14:46 Lab Results 05/24/18 05/24/18 Range/Units 14:46 14:54 WBC 11.5 H (4.3-11.1) K/mcL RBC 5.12 (4.19-5.50) M/mcL Hgb 15.7 (12.9-16.9) g/dL Hct 46.3 (37.5-50.1) % MCV 90.4 (83.0-100.0) fL MCH 30.7 (28.0-33.3) pg MCHC 33.9 (31.6-35.5) g/dL RDW 12.3 (11.5-14.5) % Plt Count 387 (140-400) K/mcL MPV 10.6 (9.4-12.4) fL Immature Gran % 0.3 (0-4) % Seg Neutrophils % 69.1 % Lymphocytes % 22.4 % Monocytes % 6.9 % Eosinophils % 0.8 % Basophils % 0.5 % Neutrophils # 8.0 (1.6-8.9) K/mcL Lymphocytes # 2.6 (0.6-4.6) K/mcL Monocytes # 0.8 (0.0-1.3) K/mcL Eosinophils # 0.1 (0.0-0.6) K/mcL Basophils # 0.1 (0.0-0.2) K/mcL Immature Plt Fraction 4.9 (1.1-6.1) % Sodium 138 (136-145) mEq/L Potassium 4.7 (3.5-5.1) mEq/L Chloride 105 (98-107) mEq/L Carbon Dioxide 25 (23-29) mEq/L BUN 13 (6-20) mg/dL Creatinine 0.99 (0.70-1.30) mg/dL Est GFR ( Amer) > 60 (> 60) Est GFR (Non-Af Amer) > 60 (> 60) BUN/Creatinine Ratio 13 (6-26) Glucose 145 H (70-105) mg/dL Calculated Osmolality 289 (280-300) Calcium 9.8 (8.6-10.3) mg/dL Total Bilirubin 0.7 (0.3-1.0) mg/dL Direct Bilirubin 0.1 (0.0-0.2) mg/dL Indirect Bilirubin 0.6 (0.0-1.2) mg/dL AST 27 (13-39) Units/L ALT 44 (7-52) Units/L Alkaline Phosphatase 87 (34-104) Units/L Troponin I < 0.03 (< 0.04) ng/mL Serum Total Protein 7.9 (6.4-8.9) g/dL Albumin 4.8 (3.5-5.7) g/dL Globulin 3.1 (2.4-3.5) g/dL Albumin/Globulin Ratio 1.5 (1.1-2.2) Lipase 20 (11-82) Units/L Attestation Statement - Attestation Attestation: I examined this patient and my medical decision-making was reviewed with the Resident Physician. I agree with the documented findings, disposition and treatment plan as described except to the extent set forth below. Findings consistent with chest pain. More concerning is the patient's history of schizophrenia. He is having very abnormal behavior including standing and staring episodes and poor verbalization. He has poor understanding and cognitive capabilities of being discharged per bili. He will require medical clearance based on psychiatric recommendations for serial troponins given complaints of chest pain and history of pulmonary embolism. He has no current tachycardia or hypoxia at this time. We will admit to medicine service for subsequent psychiatric admission. They did discuss with me that they will have a bed available tomorrow and they will be able to take him after serial cardiac biomarkers are negative. Heart Score - Score History: Slightly Suspicious EKG: Normal Age: Less than 45 Risk Factors: 1-2 risk factors Troponin: Less than normal limit HEART Score Total: 1
[2018-05-24 15:35] LABS: Basophils # 0.1 K/mcL (0.0-0.2); Basophils % 0.5 %; Eosinophils # 0.1 K/mcL (0.0-0.6); Eosinophils % 0.8 %; Hematocrit 46.3 % (37.5-50.1); Hemoglobin 15.7 g/dL (12.9-16.9); Immature Granulocytes % 0.3 % (0-4); Immature Platelets 4.9 % (1.1-6.1); Lymphocytes # 2.6 K/mcL (0.6-4.6); Lymphocytes % 22.4 %; Mean Corpuscular HGB Conc 33.9 g/dL (31.6-35.5); Mean Corpuscular Hemoglobin 30.7 pg (28.0-33.3); Mean Corpuscular Volume 90.4 fL (83.0-100.0); Mean Platelet Volume 10.6 fL (9.4-12.4); Monocytes # 0.8 K/mcL (0.0-1.3); Monocytes % 6.9 %; Platelet Count 387 K/mcL (140-400); Red Blood Count 5.12 M/mcL (4.19-5.50); Red Cell Distribution Width 12.3 % (11.5-14.5); Segmented Neutrophils % 69.1 %
[2018-05-24 16:01] LABS: Alanine Aminotransferase 44 Units/L (7-52); Albumin 4.8 g/dL (3.5-5.7); Albumin/Globulin Ratio 1.5 (1.1-2.2); Alkaline Phosphatase 87 Units/L (34-104); Aspartate Amino Transferase 27 Units/L (13-39); BUN/Creatinine Ratio 13 (6-26); Bilirubin,Direct 0.1 mg/dL (0.0-0.2); Bilirubin,Indirect 0.6 mg/dL (0.0-1.2); Bilirubin,Total 0.7 mg/dL (0.3-1.0); Blood Urea Nitrogen 13 mg/dL (6-20); Calcium 9.8 mg/dL (8.6-10.3); Carbon Dioxide 25 mEq/L (23-29); Chloride 105 mEq/L (98-107); Globulin 3.1 g/dL (2.4-3.5); Glucose 145 mg/dL (70-105); Lipase 20 Units/L (11-82); Osmolality,Calculated 289 (280-300); Potassium 4.7 mEq/L (3.5-5.1); Sodium 138 mEq/L (136-145); Total Protein 7.9 g/dL (6.4-8.9); Troponin I < 0.03 ng/mL (< 0.04); eGFR For Non-African Americans > 60 (> 60)
[2018-05-24 17:15] LABS: Acetaminophen < 10 mcg/mL (10-20); Ethanol < 10 mg/dL (Less than 10); Salicylate < 2.5 mg/dL (15.0-30.0)
--- NOTE | 2018-05-24 19:53 | Internal Med History&Physical ---
Date of Encounter: 05/24/18 Time of Encounter: 05:20 Internal Medicine - H&P: HPI Chief complaint: Chest pain Admitted From: Emergency Dept Plans for Post Hospital Care: Home History of present illness: Mr. Miller is a 37 year old male who has past medical history of hypertension and schizophrenia presents from [facility] via EMS for evaluation of chest pain. Chest has been started just prior to her showering. He lasted for a couple of minutes was radiated into the neck was severe intensity. Denied any nausea vomiting palpitations or dyspnea. Denies any similar episodes before. He has a history of PE however is not on any anticoagulation. Denies any cardiac history before. Denies any fevers chills cough, Demerol pain bowel or urinary complaints. Denies any trauma to just chest. Past Med Surg Social Fam HX - Past Medical History Medical history: hypertension, pulmonary embolus Additional medical history: TBI Psychiatric history: anxiety, bipolar, depression, schizophrenia, previous psychiatric hospitalization - Past Surgical History Surgical History: appendectomy, arthroscopy Additional surgical history: right knee surgery - Social History Smoking Status: Current every day smoker Smokeless Tobacco Status: No Alcohol use: occasionally Drug use: cocaine, marijuana, methamphetamine - Family History Father Adopted: No Family Member Ethnicity: Non- Living Status: Still Living Hx Family Cardiac Disorders: No Hx Family Respiratory Disorders: No Hx Family Cancer: No Hx Family GI Disorders: No Hx Family Endocrine Disorder: No Hx Family Neuromuscular Disorders: No Hx Family Neurologic Disorders: No Hx Family HEENT Disorders: No Hx Family Autoimmune Disorders: No Internal Medicine - H&P: Meds Benztropine [Cogentin] 1 mg PO BID 30 Days #60 tablet 12/21/17 [Rx] Divalproex (12 HR) [Depakote (12 HR)] 250 mg PO BID 30 Days #60 tablet. [Rx] Naltrexone HCl 50 mg PO DAILY 30 Days #30 tablet 12/21/17 [Rx] Propranolol [Inderal] 20 mg PO BID 30 Days #60 tablet 12/21/17 [Rx] hydrOXYzine pamoate [HydrOXYzine Pamoate] 25 mg PO TID PRN 30 Days #90 capsule 12/21/17 [Rx] Amantadine [Symmetrel] 100 mg PO BID #60 capsule 05/18/18 [Rx] Lurasidone [Latuda] 60 mg PO DAILY #45 tablet 05/18/18 [Rx] Nicotine Gum [Nicorette gum] 4 mg BC Q2H PRN #60 gum 05/18/18 [Rx] Quetiapine Fumarate [Seroquel] 400 mg PO HS 05/24/18 [History] 3 Allergy/AdvReac Type Severity Reaction Status Date / Time No Known Allergies Allergy Verified 05/24/18 14:45 All Systems PM: A 10-system review of systems was performed and is negative for pertinent findings except as documented above in the HPI. - Psychiatric Psychiatric: auditory hallucinations - Constitutional Vitals: Temp Pulse Resp BP Pulse Ox 98.6 F 96 16 136/93 96 05/24/18 15:11 05/24/18 18:46 05/24/18 18:46 05/24/18 18:46 05/24/18 18:46 Exam: - Head Head exam: Present: atraumatic, normocephalic - Eye Eye exam: Present: PERRL, conjuntiva pink, sclera anicteric Pupils: Present: PERRL - Neck Neck exam general surgery: Present: supple, trachea midline. Absent: lymphadenopathy - Respiratory Respiratory exam: Present: CTAB. Absent: accessory muscle use, rales, rhonchi, wheezes - Cardiovascular Cardiovascular exam: Present: RRR, +S1, +S2. Absent: diastolic murmur, gallop, rubs, systolic murmur - GI/Abdominal GI/Abdominal exam: Present: normal bowel sounds, soft, no peritoneal signs. Absent: distended, tenderness - Extremities Exam Extremities exam: Present: warm, radial pulses palpable and symmetrical. Absent : calf tenderness, cyanotic, pedal edema - Neurological Exam Neurological exam: Present: CN II-XII intact, motor sensory deficit, oriented X3. Absent: pronater drift, facial droop, speech deficit - Skin Skin exam: Present: dry, intact Standing facing the wall. Flat affect. Answering questions appropriately. Internal Med - H&P Results - Labs CBC & Chem 7: 05/24/18 14:54 05/24/18 14:46 - EKG Data EKG shows normal: sinus rhythm - Assessment and plan (1) Chest pain Current Visit: Yes Status: Acute Assessment and plan: Patient chest pain is likely to be cardiac will trend troponins 3. We will obtain nuclear stress test in the morning patient nothing by mouth after midnight. Will keep patient on telemetry. Qualifiers: Chest pain type: other chest pain Qualified Code(s): R07.89 - Other chest pain; R07.8 - Other chest pain (2) Auditory hallucinations Current Visit: No Status: Acute Assessment and plan: Patient occasionally complains of auditory hallucinations denies suicidal or homicidal ideation. Obtain psychiatry consultation. (3) DVT prophylaxis Current Visit: No Status: Acute Assessment and plan: Keep patient on Lovenox - Time Spent With Patient Total time spent is greater than 50% in coordination of care (as documented) at patient's floor/unit and/or counseling patient: Greater than 35 minutes
[2018-05-24] MEDS: Acetaminophen 325 MG TABLET PO PRN (20:23)
[2018-05-24] MEDS ORDERED: Nicotine 2 MG GUM BC PRN (20:26)
[2018-05-24] MEDS: Ketorolac 15 MG/ML VIAL IVP PRN (23:19)
[2018-05-25 03:42] LABS: Basophils # 0.1 K/mcL (0.0-0.2); Basophils % 0.4 %; Eosinophils # 0.1 K/mcL (0.0-0.6); Eosinophils % 0.4 %; Hematocrit 46.1 % (37.5-50.1); Hemoglobin 15.9 g/dL (12.9-16.9); Immature Granulocytes % 0.3 % (0-4); Lymphocytes # 3.2 K/mcL (0.6-4.6); Lymphocytes % 25.4 %; Mean Corpuscular HGB Conc 34.5 g/dL (31.6-35.5); Mean Corpuscular Hemoglobin 30.7 pg (28.0-33.3); Mean Platelet Volume 10.4 fL (9.4-12.4); Monocytes # 1.2 K/mcL (0.0-1.3); Monocytes % 9.5 %; Neutrophils # 8.2 K/mcL (1.6-8.9); Platelet Count 358 K/mcL (140-400); Red Blood Count 5.18 M/mcL (4.19-5.50); Red Cell Distribution Width 12.5 % (11.5-14.5)
[2018-05-25 04:02] LABS: BUN/Creatinine Ratio 16 (6-26); Blood Urea Nitrogen 20 mg/dL (6-20); Calcium 9.9 mg/dL (8.6-10.3); Carbon Dioxide 22 mEq/L (23-29); Chloride 105 mEq/L (98-107); Glucose 123 mg/dL (70-105); Osmolality,Calculated 288 (280-300); Potassium 3.9 mEq/L (3.5-5.1); Sodium 137 mEq/L (136-145); eGFR For Non-African Americans > 60 (> 60)
[2018-05-25 04:25] LABS: Bilirubin,Urine Small (Negative); Blood,Urine Negative (Negative); Clarity,Urine Clear (Clear); Color,Urine Dark Yellow (Yellow); Glucose,Urine (UA) Normal (Normal); Ketones,Urine 15 mg/dL (Negative); Leukocyte Esterase,Urine Small (Negative); Nitrite,Urine Negative (Negative); PH,Urine 5.5 pH Units (5.0-8.0); Protein,Urine 30 mg/dL (Neg-Trace); Specific Gravity,Urine > 1.030 (1.010-1.025); Urobilinogen,Urine Normal (Normal)
[2018-05-25 04:26] LABS: Bacteria,Urine None Seen per hpf (None-Few); Hyaline Casts,Urine Moderate per lpf (None-Few); Squamous Epithelial Cell,Urine Many per lpf (None-Few)
[2018-05-25 04:35] LABS: Amphetamine Screen,Urine Negative ng/mL (Cutoff=1000); Barbiturate Screen,Urine Negative ng/mL (Cutoff=200); Benzodiazepines Screen,Urine Negative ng/mL (Cutoff=200); Cannabinoid Screen,Urine Negative ng/mL (Cutoff = 50); Cocaine Screen,Urine Negative ng/mL (Cutoff= 300); Opiate Screen,Urine Negative ng/mL (Cutoff=300); Phencyclidine Screen,Urine Negative ng/mL (Cutoff=25)
[2018-05-25] MEDS: Acetaminophen 325 MG TABLET PO PRN (05:40)
[2018-05-25] MEDS ORDERED: Regadenoson 0.4 MG/5 ML SYRINGE IVP ONE (05:40)
[2018-05-25] MEDS ORDERED: *HR* Enoxaparin 40 MG/0.4 ML SYRINGE SQ SCH (06:00)
[2018-05-25] MEDS ORDERED: hydrOXYzine pamoate 25 MG CAPSULE PO PRN (08:23)
[2018-05-25] MEDS ORDERED: Divalproex (12 HR) 250 MG TABLET PO SCH (09:00)
[2018-05-25] MEDS ORDERED: Haloperidol Oral Conc 10 MG/5 ML UDC PO ONE (10:02)
[2018-05-25] MEDS ORDERED: *HR* LORazepam 1 MG TABLET PO SCH (10:15)
[2018-05-25] MEDS ORDERED: Haloperidol Lactate 5 MG/ML VIAL IM PRN (10:21)
[2018-05-25] MEDS: Ketorolac 15 MG/ML VIAL IVP PRN (10:31)
--- NOTE | 2018-05-25 10:32 | Consult Note ---
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 Miller is a 37 year old male who has past medical history of hypertension and schizophrenia presents from [facility] via EMS for evaluation of chest pain. Chest has been started just prior to her showering. He lasted for a couple of minutes was radiated into the neck was severe intensity. Denied any nausea vomiting palpitations or dyspnea. Denies any similar episodes before. He has a history of PE however is not on any anticoagulation. Denies any cardiac history before. Denies any fevers chills cough, Demerol pain bowel or urinary complaints. Denies any trauma to just chest. Pt is a 37 yo,, male, who presents for exacerbation of Schizophrenia . Pt noted that "the devil, God and Demons are all telling me not to sit down." Pt was in agreement with medicaiton adjustment and prn medication for calm. Pt denied any side effects to current medications. Pt noted he felt safe and comfortable on the unit. Pt was in agreement with current treatment plan. Pt noted that he is doing okay today. Pt noted he slept not much in the past day or so. Pt noted his appetite is good. Pt rated his depression a 0, on a scale of zero to ten with ten being the worst and zero being none. Pt rate his anxiety a 0, on the same scale. Pt denied any visual hallucinations. Pt noted auditory hallucinations of the Devil, God and Demons telling me not to sit down. Pt denied any current thoughts to harm himself or anyone else. Pt denied any Street drug or alcohol use. No TD noted, AIMS=0 1.Interval hx 2. Increase Lurasidone to 80 mg PO QAM for mood. 3. Start lorazepam 2 mg PO TID for Catatonic features. 4. PRN medications put in for exacerbation of psychosis. 5.Continue current medications 6.Review current labs 7.Pt had an opportunity to ask questions and discuss current treatment plan. 8.Supportive therapy was provided 9.Pt encouraged to consider group or individual therapy 10.Pt was in agreement with treatment plan. 11.Pt was educated on the risks benefits and side effects of current medications. [facility] CC:The Devil, God and Demons are telling me not to sit down. Past Med Surg Social Fam HX - Past Medical History Medical history: hypertension, pulmonary embolus - Past Psychiatric History Psychiatric history: Reports: schizophrenia Family psychiatric history: Yes Family History of Suicide: None - Past Surgical History Surgical History: appendectomy, arthroscopy - Social History Smoking Status: Current every day smoker Smokeless Tobacco Status: No Alcohol use: occasionally Drug use: cocaine, marijuana, methamphetamine - Family History Father Adopted: No Family Member Ethnicity: Non- Living Status: Still Living Hx Family Cardiac Disorders: No Hx Family Respiratory Disorders: No Hx Family Cancer: No Hx Family GI Disorders: No Hx Family Endocrine Disorder: No Hx Family Neuromuscular Disorders: No Hx Family Neurologic Disorders: No Hx Family HEENT Disorders: No Hx Family Autoimmune Disorders: No Medications & Allergies Benztropine [Cogentin] 1 mg PO BID 30 Days #60 tablet 12/21/17 [Rx] Divalproex (12 HR) [Depakote (12 HR)] 250 mg PO BID 30 Days #60 tablet. [Rx] Naltrexone HCl 50 mg PO DAILY 30 Days #30 tablet 12/21/17 [Rx] Propranolol [Inderal] 20 mg PO BID 30 Days #60 tablet 12/21/17 [Rx] hydrOXYzine pamoate [HydrOXYzine Pamoate] 25 mg PO TID PRN 30 Days #90 capsule 12/21/17 [Rx] Amantadine [Symmetrel] 100 mg PO BID #60 capsule 05/18/18 [Rx] Lurasidone [Latuda] 60 mg PO DAILY #45 tablet 05/18/18 [Rx] Nicotine Gum [Nicorette gum] 4 mg BC Q2H PRN #60 gum 05/18/18 [Rx] Quetiapine Fumarate [Seroquel] 400 mg PO HS 05/24/18 [History] 3 Allergy/AdvReac Type Severity Reaction Status Date / Time No Known Allergies Allergy Verified 05/24/18 14:45 Review of Systems Constitutional: Denies: fever, chills, weakness, weight change Eyes: Denies: eye pain, vision change Ears, Nose, Throat: Denies: ear pain, throat pain, dental pain, hearing loss, congestion Cardiovascular: Denies: chest pain, palpitations, dyspnea on exertion Respiratory: Denies: cough, dyspnea, wheezes Gastrointestinal: Denies: abdominal pain, nausea, vomiting, diarrhea, constipation Genitourinary male: Denies: urgency, dysuria, frequency, genital lesions Musculoskeletal: Denies: joint swelling, joint pain Integumentary: Denies: rash, lesions, pruritus Neurological: Denies: headache, weakness, numbness, memory loss Psychiatric: Reports: depression, anxiety, auditory hallucinations, visual hallucinations, difficulty concentrating, mood swings Endocrine: Denies: fatigue, heat or cold intolerance Hematologic/Lymphatic: Denies: easy bruising, lymphadenopathy Allergic/Immunologic: Denies: urticaria, itchy eyes Psychiatry Exam - Constitutional Vitals: Temp Pulse Resp BP Pulse Ox 98.8 F 106 20 115/86 95 05/25/18 07:06 05/25/18 07:06 05/25/18 07:06 05/25/18 07:06 05/25/18 07:06 General appearance: disheveled, malodorous - Musculoskeletal Gait: normal Station: relaxed Strength & Tone: normal for patient - Psychiatric Patient Orientation: Yes Person, Yes Time, Yes Place Level of alertness: Alert Behavior: anxious, restless, guarded Psychomotor activity: Normal Eye Contact: Maintains Eye Contact Mood Description: Other (restless) Affect description: congruent with mood, anxious Speech Volume: Normal Speech pattern: normal rate, normal rhythm, normal tone, fluent, spontaneous Language & Vocabulary: consistent with education Thought Process: Loose Associations, Thought Blocking, Disorganized Thought Content: Yes Paranoid delusion, Yes Evangelical delusion Perceptual Disturbances: Yes Reacting to internal stimuli, Yes Auditory hallucinations Attention Span Ability: Capable of Focused Attention Memory Description: Grossly Intact Patient Reliability: Questionable Historian Fund of knowledge: Yes average Intelligence Estimate: Average Judgment: Poor Insight: Partial Results - Drug Levels and Toxicology Drug Levels and Toxicology: Drug Levels and Toxicity 05/25/18 04:15 Urine Opiates Screen Negative Ur Barbiturates Screen Negative Ur Phencyclidine Scrn Negative Ur Amphetamines Screen Negative U Benzodiazepines Scrn Negative Urine Cocaine Screen Negative U Marijuana (THC) Screen Negative - Labs Labs: Laboratory Last Values WBC 12.8 K/mcL (4.3-11.1) H 05/25/18 03:32 RBC 5.18 M/mcL (4.19-5.50) 05/25/18 03:32 Hgb 15.9 g/dL (12.9-16.9) 05/25/18 03:32 Hct 46.1 % (37.5-50.1) 05/25/18 03:32 MCV 89.0 fL (83.0-100.0) 05/25/18 03:32 MCH 30.7 pg (28.0-33.3) 05/25/18 03:32 MCHC 34.5 g/dL (31.6-35.5) 05/25/18 03:32 RDW 12.5 % (11.5-14.5) 05/25/18 03:32 Plt Count 358 K/mcL (140-400) 05/25/18 03:32 MPV 10.4 fL (9.4-12.4) 05/25/18 03:32 Immature Gran % 0.3 % (0-4) 05/25/18 03:32 Seg Neutrophils % 64.0 % 05/25/18 03:32 Lymphocytes % 25.4 % 05/25/18 03:32 Monocytes % 9.5 % 05/25/18 03:32 Eosinophils % 0.4 % 05/25/18 03:32 Basophils % 0.4 % 05/25/18 03:32 Neutrophils # 8.2 K/mcL (1.6-8.9) 05/25/18 03:32 Lymphocytes # 3.2 K/mcL (0.6-4.6) 05/25/18 03:32 Monocytes # 1.2 K/mcL (0.0-1.3) 05/25/18 03:32 Eosinophils # 0.1 K/mcL (0.0-0.6) 05/25/18 03:32 Basophils # 0.1 K/mcL (0.0-0.2) 05/25/18 03:32 Immature Plt Fraction 4.9 % (1.1-6.1) 05/24/18 14:54 Sodium 137 mEq/L (136-145) 05/25/18 03:32 Potassium 3.9 mEq/L (3.5-5.1) 05/25/18 03:32 Chloride 105 mEq/L (98-107) 05/25/18 03:32 Carbon Dioxide 22 mEq/L (23-29) L 05/25/18 03:32 BUN 20 mg/dL (6-20) 05/25/18 03:32 Creatinine 1.29 mg/dL (0.70-1.30) 05/25/18 03:32 Est GFR ( Amer) > 60 (> 60) 05/25/18 03:32 Est GFR (Non-Af Amer) > 60 (> 60) 05/25/18 03:32 BUN/Creatinine Ratio 16 (6-26) 05/25/18 03:32 Glucose 123 mg/dL (70-105) H 05/25/18 03:32 Calculated Osmolality 288 (280-300) 05/25/18 03:32 Calcium 9.9 mg/dL (8.6-10.3) 05/25/18 03:32 Total Bilirubin 0.7 mg/dL (0.3-1.0) 05/24/18 14:46 Direct Bilirubin 0.1 mg/dL (0.0-0.2) 05/24/18 14:46 Indirect Bilirubin 0.6 mg/dL (0.0-1.2) 05/24/18 14:46 AST 27 Units/L (13-39) 05/24/18 14:46 ALT 44 Units/L (7-52) 05/24/18 14:46 Alkaline Phosphatase 87 Units/L (34-104) 05/24/18 14:46 Troponin I < 0.03 ng/mL (< 0.04) 05/25/18 03:32 Serum Total Protein 7.9 g/dL (6.4-8.9) 05/24/18 14:46 Albumin 4.8 g/dL (3.5-5.7) 05/24/18 14:46 Globulin 3.1 g/dL (2.4-3.5) 05/24/18 14:46 Albumin/Globulin Ratio 1.5 (1.1-2.2) 05/24/18 14:46 Lipase 20 Units/L (11-82) 05/24/18 14:46 Urine Color Dark Yellow (Yellow) 05/25/18 04:15 Urine Clarity Clear (Clear) 05/25/18 04:15 Urine pH 5.5 pH Units (5.0-8.0) 05/25/18 04:15 Ur Specific [place] > 1.030 (1.010-1.025) H 05/25/18 04:15 Urine Protein 30 mg/dL (Neg-Trace) H 05/25/18 04:15 Urine Glucose (UA) Normal mg/dL (Normal) 05/25/18 04:15 Urine Ketones 15 mg/dL (Negative) H 05/25/18 04:15 Urine Blood Negative (Negative) 05/25/18 04:15 Urine Nitrite Negative (Negative) 05/25/18 04:15 Urine Bilirubin Small (Negative) H 05/25/18 04:15 Urine Urobilinogen Normal mg/dL (Normal) 05/25/18 04:15 Ur Leukocyte Esterase Small (Negative) H 05/25/18 04:15 Urine Microscopic RBC 5-15 per hpf (0-3) H 05/25/18 04:15 Urine Microscopic WBC 5-15 per hpf (0-3) H 05/25/18 04:15 Ur Squamous Epith Cells Many per lpf (None-Few) H 05/25/18 04:15 Urine Bacteria None Seen per hpf (None-Few) 05/25/18 04:15 Hyaline Casts Moderate per lpf (None-Few) H 05/25/18 04:15 Salicylates < 2.5 mg/dL (15.0-30.0) L 05/24/18 14:46 Urine Opiates Screen Negative ng/mL (Pjxyyn=518) 05/25/18 04:15 Acetaminophen < 10 mcg/mL (10-20) L 05/24/18 14:46 Ur Barbiturates Screen Negative ng/mL (Bvemhu=531) 05/25/18 04:15 Ur Phencyclidine Scrn Negative ng/mL (Cutoff=25) 05/25/18 04:15 Ur Amphetamines Screen Negative ng/mL (Mpbefc=1226) 05/25/18 04:15 U Benzodiazepines Scrn Negative ng/mL (Qshufy=135) 05/25/18 04:15 Urine Cocaine Screen Negative ng/mL (Cutoff= 300) 05/25/18 04:15 U Marijuana (THC) Screen Negative ng/mL (Cutoff = 50) 05/25/18 04:15 Ur Drug Screen Interp See Below 05/25/18 04:15 Ethyl Alcohol < 10 mg/dL (Less than 10) 05/24/18 14:46 Consult Discharge Plan - Plan Additional Instructions: Transfer pt to Inpt psych once pt is medically stable. Referrals: NONE,PCP [Primary Care Provider] -
[2018-05-25 11:13] LABS: Creatine Kinase 100 Units/L (30-223)
[2018-05-25 11:50] VITALS: BP 113/78
--- NOTE | 2018-05-25 13:02 | Internal Med Progress Note ---
Hospitalist Progress Note - Encounter Date of Encounter: 05/25/18 - Exam Vitals: Temp Pulse Resp BP Pulse Ox 98.5 F 91 20 113/78 96 05/25/18 11:49 05/25/18 11:49 05/25/18 11:49 05/25/18 11:49 05/25/18 11:49 Exam: - Head Head exam: Present: atraumatic, normocephalic - Eye Eye exam: Present: PERRL, conjuntiva pink, sclera anicteric Pupils: Present: PERRL - Neck Neck exam general surgery: Present: supple, trachea midline. Absent: lymphadenopathy - Respiratory Respiratory exam: Present: CTAB. Absent: accessory muscle use, rales, rhonchi, wheezes - Cardiovascular Cardiovascular exam: Present: RRR, +S1, +S2. Absent: diastolic murmur, gallop, rubs, systolic murmur - GI/Abdominal GI/Abdominal exam: Present: normal bowel sounds, soft, no peritoneal signs. Absent: distended, tenderness - Extremities Exam Extremities exam: Present: warm, radial pulses palpable and symmetrical. Absent : calf tenderness, cyanotic, pedal edema - Neurological Exam Neurological exam: Present: CN II-XII intact, motor sensory deficit, oriented X3. Absent: pronater drift, facial droop, speech deficit - Skin Skin exam: Present: dry, intact Standing facing the wall. Flat affect. Answering questions appropriately. - Assessment and Plan (1) Chest pain Current Visit: Yes Status: Acute Assessment and Plan: Patient chest pain is likely to be cardiac will trend troponins 3. We will obtain nuclear stress test in the morning patient nothing by mouth after midnight. Will keep patient on telemetry. (2) Auditory hallucinations Current Visit: No Status: Acute Assessment and Plan: Patient occasionally complains of auditory hallucinations denies suicidal or homicidal ideation. Obtain psychiatry consultation. (3) DVT prophylaxis Current Visit: No Status: Acute Assessment and Plan: Keep patient on Lovenox - Time Spent with Patient Total time spent is greater than 50% in coordination of care (as documented) at patient's floor/unit and/or counseling patient: Internal Medicine: Result - Labs CBC & Chem 7: 05/25/18 03:32 05/25/18 03:32 Labs: Short CBC 05/25/18 Range/Units 03:32 WBC 12.8 H (4.3-11.1) K/mcL Hgb 15.9 (12.9-16.9) g/dL Hct 46.1 (37.5-50.1) % Plt Count 358 (140-400) K/mcL Neutrophils # 8.2 (1.6-8.9) K/mcL BMP 05/25/18 03:32 Sodium 137 Potassium 3.9 Chloride 105 Carbon Dioxide 22 L BUN 20 Creatinine 1.29 Glucose 123 H Calcium 9.9 Cardiac Enzymes 05/24/18 05/25/18 Range/Units 20:57 03:32 Troponin I < 0.03 < 0.03 (< 0.04) ng/mL Urine 05/25/18 Range/Units 04:15 Urine Color Dark Yellow (Yellow) Urine Clarity Clear (Clear) Urine pH 5.5 (5.0-8.0) pH Units Ur Specific [place] > 1.030 H (1.010-1.025) Urine Protein 30 H (Neg-Trace) mg/dL Urine Glucose (UA) Normal (Normal) mg/dL Consult Discharge Plan - Plan Additional Instructions: [facility] pt is medically [facility]. Referrals: NONE,PCP [Primary Care Provider] - (1) Chest pain Qualifiers: Chest pain type: other chest pain Qualified Code(s): R07.89 - Other chest pain; R07.8 - Other chest pain
--- NOTE | 2018-05-25 13:52 | Discharge Summary ---
Date of Encounter: 05/25/18 Time of Encounter: 13:20 - Discharge Diagnosis (1) Chest pain Priority: Primary Status: Acute Assessment and Plan: Patient had atypical chest pain . Troponins being negative no further chest pain. No further workup needed to evaluate his unlikely acute coronary syndrome Qualifiers: Chest pain type: other chest pain Qualified Code(s): R07.89 - Other chest pain; R07.8 - Other chest pain (2) Auditory hallucinations Priority: Secondary Status: Acute Assessment and Plan: Patient has long history of schizophrenia currently also having auditory hallucinations. Patient would be transferred to inpatient psych unit for further adjust his medication (3) DVT prophylaxis Priority: Secondary Status: Acute Hospital course: Mr. Miller is a 37 year old male was past history of hypertension and schizophrenia who was transferred from [facility] due to chest pain with concern about cardiac etiology. Patient's troponin were negative 3. He denied any further chest pain. Had occasional runs of sinus tachycardia when patient was agitated. Patient was medically stable secondary to be transferred to's inpatient psych unit for further adjustment of psychiatric medication to control his schizophrenia Discharge discussed with: patient, nurse, case management Time spent discussing smoking cessation with patient: 3 to 10 minutes - Time Spent with Patient Total time spent providing and/or coordinating discharge services: Less than 30 minutes - Discharge Medications Home Medications: Benztropine [Cogentin] 1 mg PO BID 30 Days #60 tablet 12/21/17 [Rx] Divalproex (12 HR) [Depakote (12 HR)] 250 mg PO BID 30 Days #60 tablet. [Rx] Naltrexone HCl 50 mg PO DAILY 30 Days #30 tablet 12/21/17 [Rx] Propranolol [Inderal] 20 mg PO BID 30 Days #60 tablet 12/21/17 [Rx] hydrOXYzine pamoate [HydrOXYzine Pamoate] 25 mg PO TID PRN 30 Days #90 capsule 12/21/17 [Rx] Amantadine [Symmetrel] 100 mg PO BID #60 capsule 05/18/18 [Rx] Nicotine Gum [Nicorette gum] 4 mg BC Q2H PRN #60 gum 05/18/18 [Rx] Quetiapine Fumarate [Seroquel] 400 mg PO HS 05/24/18 [History] Haloperidol [Haldol] 5 mg PO Q6H PRN tablet 05/25/18 [Rx] Lurasidone [Latuda] 80 mg PO DAILY tablet 05/25/18 [Rx] Allergies/Adverse Reactions: 3 Allergy/AdvReac Type Severity Reaction Status Date / Time No Known Allergies Allergy Verified 05/24/18 14:45 Date of admission: 05/24/18 16:56 Primary care physician: PCP NONE Consults: 05/24/18 16:57 Consult to Psychiatry [CONS] Routine Consulting Provider: Psychiatry Naoma Reason consult: Psychosis Other reason and/or additional details: Patient sitting motionless per the instruction of the voices which tell him not to move. [place]ip initiated date and time: N/A Time Notified: 16:57 Call Completed: No 05/24/18 17:52 Consult to Psychiatry [CONS] Routine Consulting Provider: Psychiatry Naoma Reason consult: Psychosis 05/25/18 08:27 Consult to Orthopedic Surgery [CONS] Routine Consulting Provider: Orthopedic and Sports Medicine Reason for Consult: septic arthritis Call Completed: Yes Discharging clinician: Gabrielle Love - Constitutional Vitals: Temp Pulse Resp BP Pulse Ox 98.5 F 91 20 113/78 96 05/25/18 11:49 05/25/18 11:49 05/25/18 11:49 05/25/18 11:49 05/25/18 11:49 Exam: - Head Head exam: Present: atraumatic, normocephalic - Eye Eye exam: Present: PERRL, conjuntiva pink, sclera anicteric Pupils: Present: PERRL - Neck Neck exam general surgery: Present: supple, trachea midline. Absent: lymphadenopathy - Respiratory Respiratory exam: Present: CTAB. Absent: accessory muscle use, rales, rhonchi, wheezes - Cardiovascular Cardiovascular exam: Present: RRR, +S1, +S2. Absent: diastolic murmur, gallop, rubs, systolic murmur - GI/Abdominal GI/Abdominal exam: Present: normal bowel sounds, soft, no peritoneal signs. Absent: distended, tenderness - Extremities Exam Extremities exam: Present: warm, radial pulses palpable and symmetrical. Absent : calf tenderness, cyanotic, pedal edema - Neurological Exam Neurological exam: Present: CN II-XII intact, motor sensory deficit, oriented X3. Absent: pronater drift, facial droop, speech deficit - Skin Skin exam: Present: dry, intact - Patient Status Disposition: Transfer Psychiatric Hosp Condition: Good - Discharge Instructions Follow Up With: NONE,PCP [Primary Care Provider] - Additional Instructions: Transfer pt to Inpt psych once pt is medically stable.
--- NOTE | 2018-05-25 16:39 | Electrocardiograph Report ---
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
--- NOTE | 2018-05-25 16:42 | Electrocardiograph Report ---
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
--- NOTE | 2018-05-25 17:23 | Electrocardiograph Report ---
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
== END 2018-05-25 15:43 ==
LOC: 3BNU 14:39 → EMEROOARM 14:39 → 3BNU 18:31
PROVIDERS: ADMIT Internal Medicine; ATTEND Internal Medicine

== ENCOUNTER 2018-05-25 15:32 | Inpatient (IN) ==
[2018-05-25] MEDS ORDERED: MOM Conc 10 ML UD.LIQ PO PRN (16:15)
[2018-05-25] MEDS ORDERED: Mag Hydrox/Al Hydrox/Simeth 30 ML UDC PO PRN (16:15)
[2018-05-25] MEDS ORDERED: *HR* LORazepam 2 MG/ML VIAL IM PRN (16:15)
[2018-05-25] MEDS ORDERED: Haloperidol Lactate 5 MG/ML VIAL IM PRN (16:15)
[2018-05-25] MEDS ORDERED: Nicotine 2 MG GUM BC PRN (16:18)
[2018-05-25] MEDS: Acetaminophen 325 MG TABLET PO PRN (16:43)
[2018-05-25] MEDS: *HR* LORazepam 1 MG TABLET PO PRN (16:43)
[2018-05-25] MEDS: hydrOXYzine pamoate 25 MG CAPSULE PO PRN (18:28)
[2018-05-25] MEDS: Divalproex (12 HR) 250 MG TABLET PO SCH (21:26)
[2018-05-26] MEDS: NALTREXONE HCL 50 MG TABLET PO SCH (08:49)
[2018-05-26] MEDS: Divalproex (12 HR) 250 MG TABLET PO SCH ×2 (08:49→20:55)
[2018-05-26] MEDS: hydrOXYzine pamoate 25 MG CAPSULE PO PRN ×3 (08:54→20:55)
[2018-05-26] MEDS: *HR* LORazepam 1 MG TABLET PO PRN (09:16)
--- NOTE | 2018-05-26 14:50 | Psychiatry History & Physical ---
Date of Encounter: 05/26/18 Time of Encounter: 10:30 History of Present Illness Patient Stated Chief Complaint: the devil, god and demons tell me to stand Medicare Admission Attestation: For traditional Medicare patients the provided hospital inpatient services are reasonable and necessary and in the case of services not specified as inpatient -only under 42 CFR 419.22 (n), that they are appropriately provided as inpatient services in accordance 42 CFR 412.3. For Critical Access Hospital the patient may reasonably be expected to be discharged or transferred to a hospital within 96 hours after admission to the Critical Access Hospital. Admitted From: Home Plans for Post Hospital Care: Transfer Psych Facility History of Present Illness: Upon Admission: Mr. Miller is a 37 year old male who has past medical history of hypertension and schizophrenia presents from [facility] via EMS for evaluation of chest pain. Chest has been started just prior to her showering. He lasted for a couple of minutes was radiated into the neck was severe intensity. Denied any nausea vomiting palpitations or dyspnea. Denies any similar episodes before. He has a history of PE however is not on any anticoagulation. Denies any cardiac history before. Denies any fevers chills cough, Demerol pain bowel or urinary complaints. Denies any trauma to just chest. Pt is a 37 yo,, male, who presents for exacerbation of Schizophrenia . Pt noted that "the devil, God and Demons are all telling me not to sit down." Once pt was medically cleared pt was transfered to for psychiatric stabilization. Pt was in agreement with medication adjustment and prn medication for calm. Pt denied any side effects to current medications. Pt noted he felt safe and comfortable on the unit. Pt was in agreement with current treatment plan. Pt noted that he is doing okay today. Pt noted he slept a little last night. Pt noted his appetite is good. Pt rated his depression a 0, on a scale of zero to ten with ten being the worst and zero being none. Pt rate his anxiety a 0, on the same scale. Pt denied any visual hallucinations. Pt noted auditory hallucinations of the Devil, God and Demons telling me not to sit down. Pt denied any current thoughts to harm himself or anyone else. Pt denied any Street drug or alcohol use. PT agreed to lurasidone 160 mg PO QHS for medication management of Schizophrenia. Pt was educated on the risks benefits and side-effects of these medications including no medication, pt was in agreement. No TD noted, AIMS=0 1.Interval hx 2. Increase Lurasidone to 160 mg PO QAM for mood. 3. Continue lorazepam 2 mg PO TID for Catatonic features. 4. PRN medications put in for exacerbation of psychosis. 5.Continue current medications 6.Review current labs 7.Pt had an opportunity to ask questions and discuss current treatment plan. 8.Supportive therapy was provided 9.Pt encouraged to consider group or individual therapy 10.Pt was in agreement with treatment plan. 11.Pt was educated on the risks benefits and side effects of current medications. Past Med Surg Social Fam HX - Past Medical History Medical history: hypertension, pulmonary embolus - Past Psychiatric History Psychiatric history: Reports: schizophrenia Family psychiatric history: Yes Family History of Suicide: None - Past Surgical History Surgical History: appendectomy, arthroscopy - Social History Smoking Status: Current every day smoker Smokeless Tobacco Status: No Alcohol use: occasionally Drug use: cocaine, marijuana, methamphetamine - Family History Father Adopted: No Family Member Ethnicity: Non- Living Status: Still Living Hx Family Cardiac Disorders: No Hx Family Respiratory Disorders: No Hx Family Cancer: No Hx Family GI Disorders: No Hx Family Endocrine Disorder: No Hx Family Neuromuscular Disorders: No Hx Family Neurologic Disorders: No Hx Family HEENT Disorders: No Hx Family Autoimmune Disorders: No Medications & Allergies Benztropine [Cogentin] 1 mg PO BID 30 Days #60 tablet 12/21/17 [Rx] Divalproex (12 HR) [Depakote (12 HR)] 250 mg PO BID 30 Days #60 tablet. [Rx] Naltrexone HCl 50 mg PO DAILY 30 Days #30 tablet 12/21/17 [Rx] Propranolol [Inderal] 20 mg PO BID 30 Days #60 tablet 12/21/17 [Rx] hydrOXYzine pamoate [HydrOXYzine Pamoate] 25 mg PO TID PRN 30 Days #90 capsule 12/21/17 [Rx] Amantadine [Symmetrel] 100 mg PO BID #60 capsule 05/18/18 [Rx] Nicotine Gum [Nicorette gum] 4 mg BC Q2H PRN #60 gum 05/18/18 [Rx] Quetiapine Fumarate [Seroquel] 400 mg PO HS 05/24/18 [History] Haloperidol [Haldol] 5 mg PO Q6H PRN tablet 05/25/18 [Rx] Lurasidone [Latuda] 80 mg PO DAILY tablet 05/25/18 [Rx] 3 Allergy/AdvReac Type Severity Reaction Status Date / Time No Known Allergies Allergy Verified 05/24/18 14:45 Review of Systems Constitutional: Denies: fever, chills, weakness, weight change Eyes: Denies: eye pain, vision change Ears, Nose, Throat: Denies: ear pain, throat pain, dental pain, hearing loss, congestion Cardiovascular: Denies: chest pain, palpitations, dyspnea on exertion Respiratory: Denies: cough, dyspnea, wheezes Gastrointestinal: Denies: abdominal pain, nausea, vomiting, diarrhea, constipation Genitourinary male: Denies: urgency, dysuria, frequency, genital lesions Musculoskeletal: Denies: joint swelling, joint pain Integumentary: Denies: rash, lesions, pruritus Neurological: Denies: headache, weakness, numbness, memory loss Psychiatric: Reports: depression, abnormal sleep pattern, auditory hallucinations, difficulty concentrating Endocrine: Denies: fatigue, heat or cold intolerance Hematologic/Lymphatic: Denies: easy bruising, lymphadenopathy Allergic/Immunologic: Denies: urticaria, itchy eyes Exam - HEENT Head exam IM: Present: atraumatic Eye exam IM: Present: EOMI, normal appearance, PERRL ENT exam IM: Present: normal exam - Neurological Neurological exam: Present: CN II-XII intact - Respiratory Respiratory exam IM: Present: CTAB - GI/Abdominal GI/Abdominal exam IM: Present: normal bowel sounds, soft. Absent: tenderness - Extremities Extremities exam IM: Present: full ROM - Skin Skin exam IM: Present: dry, warm - Constitutional Vitals: Temp Pulse Resp BP 97.0 F L 53 16 115/84 05/26/18 09:00 05/26/18 09:00 05/26/18 09:00 05/26/18 09:00 General appearance: age & developmentally appropriate, well-groomed, well- nourished - Musculoskeletal Gait: normal Station: relaxed Strength & Tone: normal for patient - Psychiatric Patient Orientation: Yes Person, Yes Time, Yes Place Level of alertness: Alert Behavior: anxious, fearful Psychomotor activity: Normal Eye Contact: Minimal Contact Mood Description: Euthymic/stable, Depressed Affect description: congruent with mood, blunted, flat, dysphoric Speech Volume: Normal Speech pattern: normal rate, normal rhythm, normal tone, fluent, spontaneous Language & Vocabulary: consistent with education, limited Thought Process: Loose Associations, Disorganized Thought Content: No Suicidal ideation, No Homicidal ideation, No Overt delusions , Yes Paranoid delusion, Yes Gnosticist delusion Perceptual Disturbances: Yes Reacting to internal stimuli, Yes Auditory hallucinations, Yes Visual hallucinations Attention Span Ability: Capable of Focused Attention Memory Description: Immediate Intact Patient Reliability: Questionable Historian Fund of knowledge: Yes average, Yes aware of current events Intelligence Estimate: Average Judgment: Poor Insight: Minimal Assessment and Plan (1) Acute exacerbation of chronic paranoid schizophrenia Current visit: No Status: Acute Plan: Admit inpatient for safety and stabilization, Close observation, Suicide Precautions per unit protocol, Encourage participation in unit milieu, Group Therapy, Monitor sleep, Monitor appetite Risks, benefits, side effects, alternatives discussed w/pt: Yes Patient agreeable to treatment: Yes Plans for Post Hospital Care: Transfer Psych Facility (2) Acute psychosis Current visit: No Status: Acute Plan: Admit inpatient for safety and stabilization, Close observation, Suicide Precautions per unit protocol, Encourage participation in unit milieu, Group Therapy, Monitor sleep, Monitor appetite Risks, benefits, side effects, alternatives discussed w/pt: Yes Patient agreeable to treatment: Yes Plans for Post Hospital Care: Transfer Psych Facility (3) Catatonia associated with another mental disorder Current visit: No Status: Acute Plan: Admit inpatient for safety and stabilization, Close observation, Suicide Precautions per unit protocol, Encourage participation in unit milieu, Group Therapy, Monitor sleep, Monitor appetite Risks, benefits, side effects, alternatives discussed w/pt: Yes Patient agreeable to treatment: Yes Plans for Post Hospital Care: Transfer In Rehab Fac (4) Chronic schizophrenia Current visit: No Status: Acute Plan: Admit inpatient for safety and stabilization, Close observation, Suicide Precautions per unit protocol, Encourage participation in unit milieu, Group Therapy, Monitor sleep, Monitor appetite Risks, benefits, side effects, alternatives discussed w/pt: Yes Patient agreeable to treatment: Yes Plans for Post Hospital Care: Transfer Psych Facility
[2018-05-26] MEDS: *HR* LORazepam 1 MG TABLET PO SCH ×2 (15:45→20:54)
[2018-05-26] MEDS: Acetaminophen 325 MG TABLET PO PRN (19:15)
[2018-05-26] MEDS: traZODone 50 MG TABLET PO PRN (20:55)
[2018-05-27] MEDS: *HR* LORazepam 1 MG TABLET PO PRN (05:20)
[2018-05-27] MEDS: *HR* LORazepam 1 MG TABLET PO SCH ×4 (05:20→20:00)
[2018-05-27] MEDS: Divalproex (12 HR) 250 MG TABLET PO SCH ×2 (09:10→20:00)
[2018-05-27] MEDS: NALTREXONE HCL 50 MG TABLET PO SCH (09:11)
--- NOTE | 2018-05-27 09:36 | Psychiatry Progress Note ---
Date of Encounter: 05/27/18 Time of Encounter: 08:00 Subjective Interval history: Pt is a 37 yo,, male, who presents for exacerbation of Schizophrenia . Pt noted that "the voices stopped." Pt was in agreement with medication adjustment and prn medication for calm. Pt denied any side effects to current medications. Pt noted he felt safe and comfortable on the unit. Pt was in agreement with current treatment plan. Pt noted that he is doing much better today. Pt noted he slept a little last night. Pt noted his appetite is good. Pt rated his depression a 0, on a scale of zero to ten with ten being the worst and zero being none. Pt rate his anxiety a 0, on the same scale. Pt denied any visual hallucinations. Pt noted visual or auditory hallucinations . Pt denied any current thoughts to harm himself or anyone else. Pt denied any Street drug or alcohol use. PT agreed to lurasidone 160 mg PO QHS for medication management of Schizophrenia. Pt was educated on the risks benefits and side-effects of these medications including no medication, pt was in agreement. No TD noted, AIMS=0 1.Interval hx 2.Continue current medications 3.Review current labs 4.Pt had an opportunity to ask questions and discuss current treatment plan. 5.Supportive therapy was provided 6.Pt encouraged to consider group or individual therapy 7.Pt was in agreement with treatment plan. 8.Pt was educated on the risks benefits and side effects of current medications. Review of Systems Constitutional: Denies: fever, chills, weakness, weight change Eyes: Denies: eye pain, vision change Ears, Nose, Throat: Denies: ear pain, throat pain, dental pain, hearing loss, congestion Cardiovascular: Denies: chest pain, palpitations, dyspnea on exertion Respiratory: Denies: cough, dyspnea, wheezes Gastrointestinal: Denies: abdominal pain, nausea, vomiting, diarrhea, constipation Musculoskeletal: Denies: joint swelling, joint pain Neurological: Denies: headache, weakness, numbness, memory loss Psychiatric: Reports: depression, abnormal sleep pattern, auditory hallucinations, difficulty concentrating Results - Vital Signs Vital Signs: Temp Pulse Resp BP 96.7 F L 81 16 123/84 05/26/18 19:54 05/26/18 19:54 05/26/18 19:54 05/26/18 19:54 Assessment and Plan (1) Acute exacerbation of chronic paranoid schizophrenia Current visit: No Status: Acute Plan: Continue hospitalization, Close observation, Suicide Precautions per unit protocol, Encourage participation in unit milieu, Group Therapy, Monitor sleep, Monitor appetite Risks, benefits, side effects, alternatives discussed w/pt: Yes Patient agreeable to treatment: Yes (2) Acute psychosis Current visit: No Status: Acute Plan: Continue hospitalization, Close observation, Suicide Precautions per unit protocol, Encourage participation in unit milieu, Group Therapy, Monitor sleep, Monitor appetite Risks, benefits, side effects, alternatives discussed w/pt: Yes Patient agreeable to treatment: Yes (3) Catatonia associated with another mental disorder Current visit: No Status: Acute Plan: Continue hospitalization, Close observation, Suicide Precautions per unit protocol, Encourage participation in unit milieu, Group Therapy, Monitor sleep, Monitor appetite Risks, benefits, side effects, alternatives discussed w/pt: Yes Patient agreeable to treatment: Yes (4) Chronic schizophrenia Current visit: No Status: Acute Plan: Continue hospitalization, Close observation, Suicide Precautions per unit protocol, Encourage participation in unit milieu, Group Therapy, Monitor sleep, Monitor appetite Risks, benefits, side effects, alternatives discussed w/pt: Yes Patient agreeable to treatment: Yes Consult Discharge Plan - Plan Referrals: [facility] [Outside] - 06/02/18 11:30 am (You are returning into mental health respite at [facility] on discharge from the hospital. While there, you will be seen daily by the clinic counselors and social work case manager, both individually and in group. You will also see Saba Louis for outpatient psychiatric assessment and medication management services on 06/02/2018 at 11:30am.) Psychiatry Exam - Constitutional Vitals: Temp Pulse Resp BP 96.7 F L 81 16 123/84 05/26/18 19:54 05/26/18 19:54 05/26/18 19:54 05/26/18 19:54 General appearance: age & developmentally appropriate, well-groomed, well- nourished - Musculoskeletal Gait: normal Station: relaxed Strength & Tone: normal for patient - Psychiatric Patient Orientation: Yes Person, Yes Time, Yes Place Level of alertness: Alert Behavior: calm, cooperative Psychomotor activity: Slowed Eye Contact: Maintains Eye Contact Mood Description: Depressed Affect description: congruent with mood Speech Volume: Normal, Loud Speech pattern: pressured Language & Vocabulary: consistent with education Thought Process: Flight of Ideas, Thought Blocking Thought Content: Yes Paranoid delusion, Yes Grandiose delusion Perceptual Disturbances: Yes Reacting to internal stimuli, Yes Visual hallucinations Attention Span Ability: Capable of Sustained Attention Memory Description: Grossly Intact Patient Reliability: Questionable Historian Fund of knowledge: Yes average Intelligence Estimate: Average Judgment: Limited Insight: Partial
[2018-05-28] MEDS: *HR* LORazepam 1 MG TABLET PO SCH ×3 (09:33→20:12)
[2018-05-28] MEDS: NALTREXONE HCL 50 MG TABLET PO SCH (09:33)
[2018-05-28] MEDS: Divalproex (12 HR) 250 MG TABLET PO SCH ×2 (09:33→20:12)
--- NOTE | 2018-05-28 09:43 | Psychiatry Progress Note ---
Date of Encounter: 05/28/18 Time of Encounter: 09:33 Subjective Interval history: Client well known to this senior technical writer from previous admissions. Chronic Schizophrenia exacerbated by drug use. Residing in [facility] prior to admission. Presented to ER secondary to chest pain. Once medically clear admitted to for further management. Currently pacing halls but able to sit briefly and speak with this senior technical writer. Admits to [facility] of faces and AH of voices telling him to hard candy spinner the same place for hours. 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 Currently taking 6mg of Ativan in addition to Cogentin, Amantadine, and Propranolol. Always difficult to manage him since he has severe psychosis with catatonia but also a history of dangerous side effects to medications. Currently taking Depakote and Latuda for illness along with Naltrexone for substance abuse issues. Latuda dose recently doubled to what it was at the time of his last discharge. Will give medications time to work. May return to [facility] and time of discharge but not yet ready. Review of Systems Constitutional: Denies: fever, chills, weakness, weight change Eyes: Denies: eye pain, vision change Ears, Nose, Throat: Denies: ear pain, throat pain, dental pain, hearing loss, congestion Cardiovascular: Denies: chest pain, palpitations, dyspnea on exertion Respiratory: Denies: cough, dyspnea, wheezes Gastrointestinal: Denies: abdominal pain, nausea, vomiting, diarrhea, constipation Musculoskeletal: Denies: joint swelling, joint pain Neurological: Denies: headache, weakness, numbness, memory loss Psychiatric: Reports: depression, abnormal sleep pattern, auditory hallucinations, difficulty concentrating Results - Vital Signs Vital Signs: Temp Pulse Resp BP 97.5 F L 80 16 119/79 05/27/18 19:44 05/27/18 19:44 05/27/18 19:44 05/27/18 19:44 Assessment and Plan (1) Schizophrenia Current visit: No Status: Chronic Plan: Continue hospitalization, Close observation, Suicide Precautions per unit protocol, Encourage participation in unit milieu, Group Therapy, Monitor sleep, Monitor appetite Risks, benefits, side effects, alternatives discussed w/pt: Yes Patient agreeable to treatment: Yes Qualifiers: Schizophrenia type: catatonic schizophrenia Qualified Code(s): F20.2 - Catatonic schizophrenia (2) Catatonia associated with another mental disorder Current visit: No Status: Acute Plan: Continue hospitalization, Close observation, Suicide Precautions per unit protocol, Encourage participation in unit milieu, Group Therapy, Monitor sleep, Monitor appetite Risks, benefits, side effects, alternatives discussed w/pt: Yes Patient agreeable to treatment: Yes Consult Discharge Plan - Plan Referrals: [facility] [Outside] - 06/02/18 11:30 am (You are returning into mental health respite at [facility] on discharge from the hospital. While there, you will be seen daily by the clinic counselors and case management social worker, both individually and in group. You will also see Saba Louis for outpatient psychiatric assessment and medication management services on 06/02/2018 at 11:30am.) Psychiatry Exam - Constitutional Vitals: Temp Pulse Resp BP 97.5 F L 80 16 119/79 05/27/18 19:44 05/27/18 19:44 05/27/18 19:44 05/27/18 19:44 General appearance: unkempt, disheveled - Musculoskeletal Gait: normal Station: shaky Strength & Tone: normal for patient - Psychiatric Patient Orientation: Yes Person, Yes Time, Yes Place Level of alertness: Alert Behavior: restless Psychomotor activity: Normal Eye Contact: Maintains Eye Contact Mood Description: Euthymic/stable Affect description: blunted Speech Volume: Normal Speech pattern: mumbled Language & Vocabulary: consistent with education Thought Process: Linear Thought Content: No Suicidal ideation, No Homicidal ideation, No Overt delusions Perceptual Disturbances: Yes Reacting to internal stimuli, Yes Auditory hallucinations, Yes Visual hallucinations Attention Span Ability: Unable to Focus, Unable to Sustain Attention Memory Description: Grossly Intact Patient Reliability: Questionable Historian Fund of knowledge: Yes average Intelligence Estimate: Below Average Judgment: Limited Insight: Partial
[2018-05-28] MEDS: Acetaminophen 325 MG TABLET PO PRN (11:25)
[2018-05-28] MEDS: traZODone 50 MG TABLET PO PRN (20:12)
[2018-05-29] MEDS: NALTREXONE HCL 50 MG TABLET PO SCH (08:59)
[2018-05-29] MEDS: Divalproex (12 HR) 250 MG TABLET PO SCH ×2 (08:59→20:31)
[2018-05-29] MEDS: *HR* LORazepam 1 MG TABLET PO SCH ×3 (08:59→20:30)
--- NOTE | 2018-05-29 10:38 | Psychiatry Progress Note ---
Date of Encounter: 05/29/18 Time of Encounter: 10:36 Subjective Interval history: Client looks a little better this morning. Told staff his AH are better. Told this video game script writer he is not having any which is doubtful. However, he did not need any prns this morning and he did yesterday. Meds are likely starting to take effect. No periods of immobility. Eating and sleeping well. Not attending to hygiene. Did agree to shower and change clothes this morning but staff need to encourage appropriate self care. Will likely be ready to return to [facility] at some point this week. Review of Systems Constitutional: Denies: fever, chills, weakness, weight change Eyes: Denies: eye pain, vision change Ears, Nose, Throat: Denies: ear pain, throat pain, dental pain, hearing loss, congestion Cardiovascular: Denies: chest pain, palpitations, dyspnea on exertion Respiratory: Denies: cough, dyspnea, wheezes Gastrointestinal: Denies: abdominal pain, nausea, vomiting, diarrhea, constipation Musculoskeletal: Denies: joint swelling, joint pain Neurological: Denies: headache, weakness, numbness, memory loss Psychiatric: Reports: depression, abnormal sleep pattern, auditory hallucinations, difficulty concentrating Results - Vital Signs Vital Signs: Temp Pulse Resp BP 97.5 F L 78 18 121/83 05/29/18 09:00 05/29/18 09:00 05/29/18 09:00 05/29/18 09:00 Assessment and Plan (1) Schizophrenia Current visit: No Status: Chronic Plan: Continue hospitalization, Close observation, Suicide Precautions per unit protocol, Encourage participation in unit milieu, Group Therapy, Monitor sleep, Monitor appetite Risks, benefits, side effects, alternatives discussed w/pt: Yes Patient agreeable to treatment: Yes Qualifiers: Schizophrenia type: catatonic schizophrenia Qualified Code(s): F20.2 - Catatonic schizophrenia (2) Catatonia associated with another mental disorder Current visit: No Status: Acute Plan: Continue hospitalization, Close observation, Suicide Precautions per unit protocol, Encourage participation in unit milieu, Group Therapy, Monitor sleep, Monitor appetite Risks, benefits, side effects, alternatives discussed w/pt: Yes Patient agreeable to treatment: Yes Consult Discharge Plan - Plan Referrals: [facility] [Outside] - 06/02/18 11:30 am (You are returning into mental health respite at [facility] on discharge from the hospital. While there, you will be seen daily by the clinic counselors and cyanide case hardener, both individually and in group. You will also see Saba Heriberto for outpatient psychiatric assessment and medication management services on 06/02/2018 at 11:30am.) Psychiatry Exam - Constitutional Vitals: Temp Pulse Resp BP 97.5 F L 78 18 121/83 05/29/18 09:00 05/29/18 09:00 05/29/18 09:00 05/29/18 09:00 General appearance: unkempt, disheveled - Musculoskeletal Gait: normal Station: relaxed Strength & Tone: normal for patient - Psychiatric Patient Orientation: Yes Person, Yes Time, Yes Place Level of alertness: Alert Behavior: calm, cooperative Psychomotor activity: Increased Eye Contact: Maintains Eye Contact Mood Description: Euthymic/stable Affect description: blunted Speech Volume: Normal Speech pattern: mumbled Language & Vocabulary: consistent with education Thought Process: Linear Thought Content: No Suicidal ideation, No Homicidal ideation, No Overt delusions Perceptual Disturbances: Yes Reacting to internal stimuli, Yes Auditory hallucinations, Yes Visual hallucinations Attention Span Ability: Capable of Focused Attention Memory Description: Grossly Intact Patient Reliability: Questionable Historian Fund of knowledge: Yes average Intelligence Estimate: Average Judgment: Limited Insight: Partial
[2018-05-29] MEDS: traZODone 50 MG TABLET PO PRN (20:30)
[2018-05-29] MEDS: hydrOXYzine pamoate 25 MG CAPSULE PO PRN (20:31)
[2018-05-30] MEDS: *HR* LORazepam 1 MG TABLET PO SCH ×3 (09:57→20:35)
[2018-05-30] MEDS: Divalproex (12 HR) 250 MG TABLET PO SCH ×2 (09:57→20:34)
[2018-05-30] MEDS: NALTREXONE HCL 50 MG TABLET PO SCH (09:58)
--- NOTE | 2018-05-30 12:44 | Psychiatry Progress Note ---
Date of Encounter: 05/30/18 Time of Encounter: 12:00 Subjective Interval history: ID the patient is a 37-year-old white male. Chief complaint: I am okay I will take a shower later today. History of present illness. The patient has been hospitalized and after initial episode of chest pain was found to be noncardiac in origin. The patient has been on a variety of medicines today medicines were helping the morning due to low blood pressure. The patient denied any syncope or dizziness. Nonetheless the patient's lived to be changed to the evening to help with tolerance. The patient is able to follow-up in the local clinic. His next scheduled appointment is on June 02 he is unable to tell me who is seeing but can identify that it is a female provider nurse practitioner over the television screen. Review of Systems Psychiatric: Reports: depression, abnormal sleep pattern, auditory hallucinations, difficulty concentrating Results - Vital Signs Vital Signs: Temp Pulse Resp BP 98.0 F 90 20 107/84 05/30/18 09:00 05/29/18 20:26 05/30/18 09:00 05/30/18 09:00 Assessment and Plan (1) Catatonic schizophrenia Current visit: Yes Status: Acute Plan: Continue hospitalization Risks, benefits, side effects, alternatives discussed w/pt: Yes Patient agreeable to treatment: Yes (2) Essential (primary) hypertension Current visit: Yes Status: Acute Plan: Continue hospitalization Risks, benefits, side effects, alternatives discussed w/pt: Yes Patient agreeable to treatment: Yes (3) Patient's noncompliance with other medical treatment and regimen Current visit: Yes Status: Chronic Plan: Group Therapy Risks, benefits, side effects, alternatives discussed w/pt : Yes Patient agreeable to treatment: Yes (4) Catatonia associated with another mental disorder Current visit: No Status: Acute Risks, benefits, side effects, alternatives discussed w/pt: Yes Patient agreeable to treatment: Yes Consult Discharge Plan - Plan Referrals: [facility] [Outside] - 06/02/18 11:30 am (You are returning into mental health respite at [facility] on discharge from the hospital. While there, you will be seen daily by the clinic counselors and social work case manager, both individually and in group. You will also see Saba Louis for outpatient psychiatric assessment and medication management services on 06/02/2018 at 11:30am.) Psychiatry Exam - Constitutional Vitals: Temp Pulse Resp BP 98.0 F 90 20 107/84 05/30/18 09:00 05/29/18 20:26 05/30/18 09:00 05/30/18 09:00 General appearance: unkempt, malodorous - Musculoskeletal Gait: normal Strength & Tone: cog wheel - Psychiatric Patient Orientation: Yes Person, Yes Time, Yes Place Level of alertness: Alert Psychomotor activity: Slowed Eye Contact: Maintains Eye Contact Mood Description: Other Affect description: blunted Speech Volume: Normal Speech pattern: normal rate Language & Vocabulary: limited Thought Process: Intact Thought Content: Yes Mandaen delusion Perceptual Disturbances: Yes Auditory hallucinations Memory Description: Immediate Impaired, Recent Impaired, Remote Impaired Fund of knowledge: Yes below average Intelligence Estimate: Below Average Judgment: Poor Insight: None
[2018-05-30] MEDS: hydrOXYzine pamoate 25 MG CAPSULE PO PRN (17:08)
[2018-05-30] MEDS: Acetaminophen 325 MG TABLET PO PRN (20:32)
[2018-05-30] MEDS: traZODone 50 MG TABLET PO PRN (20:33)
[2018-05-31] MEDS: Acetaminophen 325 MG TABLET PO PRN ×2 (08:34→16:21)
[2018-05-31] MEDS: *HR* LORazepam 1 MG TABLET PO SCH ×3 (08:35→20:47)
[2018-05-31] MEDS: Divalproex (12 HR) 250 MG TABLET PO SCH ×2 (08:35→20:48)
[2018-05-31] MEDS: NALTREXONE HCL 50 MG TABLET PO SCH (08:36)
--- NOTE | 2018-05-31 13:59 | Psychiatry Progress Note ---
Date of Encounter: 05/31/18 Time of Encounter: 14:00 Subjective Interval history: ID the patient is a 37-year-old white male. Chief complaint: I had salad today. History of present illness. The patient was noted to have a rash over the anterior chest and a swelling on the face. The patient reports that he has a skin condition and usually washes for that today he is showered. He notes no pain but in the past he has had a cyst on tooth. This is usually taken care of. The patient plans to have dental extraction he reported that he brushed his teeth but that he did notice some block. The patient did not report any dizziness or unsteadiness but yesterday his medicines were held until he could get the lid to do at night. He took last night's dose of only 2 days been changed to an evening time dose taken with food and he has tolerated this without significant difficulty. Nonetheless the concern is over the rash. The patient reports no hallucinations or delusions or there is been no catatonic behavior. The patient has not complained dizziness or stiffness. Review of Systems Psychiatric: Reports: depression, abnormal sleep pattern, auditory hallucinations, difficulty concentrating Results - Vital Signs Vital Signs: Temp Pulse Resp BP 97.7 F 81 20 132/96 05/31/18 09:00 05/31/18 09:00 05/31/18 09:00 05/31/18 09:00 Assessment and Plan (1) Catatonic schizophrenia Current visit: Yes Status: Acute Plan: Continue hospitalization, Close observation, Encourage participation in unit milieu Risks, benefits, side effects, alternatives discussed w/pt: Yes Patient agreeable to treatment: Yes (2) Essential (primary) hypertension Current visit: Yes Status: Acute Plan: Monitor appetite, Other Risks, benefits, side effects, alternatives discussed w/pt: Yes Patient agreeable to treatment: Yes (3) Patient's noncompliance with other medical treatment and regimen Current visit: Yes Status: Chronic Plan: Continue hospitalization, Close observation, Suicide Precautions per unit protocol, Encourage participation in unit milieu Risks, benefits, side effects , alternatives discussed w/pt: Yes Patient agreeable to treatment: Yes (4) Catatonia associated with another mental disorder Current visit: No Status: Acute Plan: Suicide Precautions per unit protocol, Encourage participation in unit milieu, Monitor sleep, Monitor appetite, Secure weapons, Family/Supportive other meeting Risks, benefits, side effects, alternatives discussed w/pt: Yes Patient agreeable to treatment: Yes Consult Discharge Plan - Plan Referrals: [facility] [Outside] - 06/02/18 11:30 am (You are returning into mental health respite at [facility] on discharge from the hospital. While there, you will be seen daily by the clinic counselors and pillowcase sewer, both individually and in group. You will also see Saba Heriberto for outpatient psychiatric assessment and medication management services on 06/02/2018 at 11:30am.) Psychiatry Exam - Constitutional Vitals: Temp Pulse Resp BP 97.7 F 81 20 132/96 05/31/18 09:00 05/31/18 09:00 05/31/18 09:00 05/31/18 09:00 General appearance: disheveled, obese - Musculoskeletal Gait: normal Station: erect Strength & Tone: cog wheel - Psychiatric Patient Orientation: Yes Person, Yes Time, Yes Place Level of alertness: Alert Behavior: calm Psychomotor activity: Slowed Eye Contact: Maintains Eye Contact Mood Description: Other Affect description: dysphoric Speech Volume: Soft/Quiet Speech pattern: normal rate Language & Vocabulary: consistent with education Thought Process: Logical, Slowed Thinking Thought Content: Yes Poverty of Content Attention Span Ability: Unable to Sustain Attention Memory Description: Grossly Intact Patient Reliability: Questionable Historian Fund of knowledge: Yes below average Intelligence Estimate: Below Average Judgment: Limited Insight: Minimal
[2018-05-31] MEDS: hydrOXYzine pamoate 25 MG CAPSULE PO PRN (20:48)
[2018-05-31] MEDS: traZODone 50 MG TABLET PO PRN (20:48)
[2018-06-01] MEDS: NALTREXONE HCL 50 MG TABLET PO SCH (08:52)
[2018-06-01] MEDS: *HR* LORazepam 1 MG TABLET PO SCH ×3 (08:53→20:21)
[2018-06-01] MEDS: Divalproex (12 HR) 250 MG TABLET PO SCH ×2 (08:53→20:21)
--- NOTE | 2018-06-01 10:23 | Discharge Summary ---
Date of Encounter: 06/01/18 Time of Encounter: 10:00 Diagnosis - Discharge Diagnosis (1) Catatonic schizophrenia Priority: Primary Status: Acute (2) Essential (primary) hypertension Status: Chronic (3) Patient's noncompliance with other medical treatment and regimen Priority: Secondary Status: Chronic (4) Catatonia associated with another mental disorder Priority: Secondary Status: Acute (5) Cigarette nicotine dependence, uncomplicated Priority: Secondary Status: Chronic Medications - Discharge Medications Prescriptions: LORazepam [Ativan] 2 mg PO TID 15 Days #45 tablet Lurasidone [Latuda] 160 mg PO QPM 14 Days #14 tablet Benztropine [Cogentin] 1 mg PO BID 30 Days #60 tablet 12/21/17 [Rx] Divalproex (12 HR) [Depakote (12 HR)] 250 mg PO BID 30 Days #60 tablet.dr [Rx] Naltrexone HCl 50 mg PO DAILY 30 Days #30 tablet 12/21/17 [Rx] Propranolol [Inderal] 20 mg PO BID 30 Days #60 tablet 12/21/17 [Rx] Amantadine [Symmetrel] 100 mg PO BID #60 capsule 05/18/18 [Rx] Nicotine Gum [Nicorette gum] 4 mg BC Q2H PRN #60 gum 05/18/18 [Rx] LORazepam [Ativan] 2 mg PO TID 15 Days #45 tablet 06/01/18 [Rx] Lurasidone [Latuda] 160 mg PO QPM 14 Days #14 tablet 06/01/18 [Rx] 3 Allergy/AdvReac Type Severity Reaction Status Date / Time No Known Allergies Allergy Verified 05/24/18 14:45 Provider Date of admission: 05/25/18 15:32 Primary care physician: PCP NONE Consults: 05/26/18 10:33 Consult to Pastoral Services [CONS] Routine Comment: 05/28/18 11:04 Consult to Pastoral Services [CONS] Routine Comment: Discharging clinician: Martin Bailon Psychiatry Exam - Constitutional Vitals: Temp Pulse Resp BP 97.5 F L 88 20 102/76 06/01/18 09:00 06/01/18 09:00 06/01/18 09:00 06/01/18 09:00 General appearance: unkempt, obese - Musculoskeletal Gait: slow Station: other Strength & Tone: normal for patient - Psychiatric Patient Orientation: Yes Person, Yes Time, Yes Place Level of alertness: Alert Behavior: calm, withdrawn Psychomotor activity: Slowed Eye Contact: Maintains Eye Contact Mood Description: Other Affect description: blunted Speech Volume: Soft/Quiet Speech pattern: normal rate, impoverished Language & Vocabulary: consistent with education Thought Process: Logical, Slowed Thinking Thought Content: Yes Intact Perceptual Disturbances: No Auditory hallucinations, No Visual hallucinations Attention Span Ability: Capable of Sustained Attention Memory Description: Grossly Intact Patient Reliability: Questionable Historian Fund of knowledge: Yes below average Intelligence Estimate: Average Judgment: Limited Insight: Minimal Hospital Course Hospital course: Mr. Miller is a 37 year old male The patient is well-known to the service. His chief complaint was I had chest pain but I did not have a heart attack. History of present illness the patient was admitted to the one a unit after being evaluated for chest pain. Taking a shower he did come out he complained of chest pain. The patient had been on several medicines for the treatment of schizophrenia including combination of quetiapine and llatuda. The patient was optimized on Latuda. He tolerated a dose of 160 mg every afternoon on the week prior to discharge the patient had low blood pressure although he did not complain of dizziness his doses of medicines were held. The antipsychotic monotherapy was continued every afternoon city may take it with food and better absorbed. The patient tolerated this in the in several examinations to look for movements of EPS. To briefly summarize the patient had some periods of cogwheeling but did not have catatonic rigidity. The patient's had had slow speech but did not have catatonia in the last week. He did not stand mobile with posturing and mobility are staring. The patient previously had a delusion that she was to stand motionless in order to prevent all those normal from dying. When asked about this delusion she denied this when asked about auditory hallucinations he denied this he did not appear to be attending to hallucinations. The patient did not have tremor. He did not evidence significant movements of tardive dyskinesia although with activation he had some movements the toes. The patient had a swelling of the face and redness on several areas. The day before admission the patient had redness over the chest and the malar eminence. The right greater than the left was identified. Patient is a skin condition. He showers when instructed. He uses Dial and [place] soap. But he has been observed using hand soap to place over his face or other areas. This might cause the inflammation. On the day of discharge the patient was examined with no significant rash or redness over the anterior chest trunk. He had no significant gynecomastia and no swelling or redness over the malar area of the cheek. The patient had no significant sinus pressure. The patient had significant dental caries with evidence of ongoing infection in the upper teeth and lower teeth. This might explain the facial swelling. The patient reported that he tolerated the current regimen of medicines and was ready to go back to the local mental health facility with close follow-up. The patient's been maintained on lorazepam 2 mg 3 times a day for the treatment of catatonia. It is important to note that the patient had episodes of lethal catatonia requiring high doses of Geodon and Ativan in the past. This after a period of prolonged immobility as well as excitement. Patient's been treated both medical and psychiatric floor. And has been given a separate diagnosis of catatonia due to a mental disorder. It is possible he has another physical condition but his workup has been essentially negative. The patient has had malignant or lethal catatonia. There is also a remote history of an NMS or neuroleptic malignant syndrome. The patient is also had a pulmonary embolus in the past and is on anticoagulation to prevent recurrence. The patient understood his discharge follow-up the importance of continuing his medicines.'s important to note that the patient has a history of noncompliance. The patient has a history of abusing substances and drugs abuse. The patient was given instructions on smoking cessation and verbalized understanding however these and other restrictions may require reinforcement. Time spent discussing smoking cessation with patient: 3 to 10 minutes Does patient wish to continue nicotine replacement upon disc: Yes - Time Spent with Patient Total time spent providing and/or coordinating discharge services: Greater than 30 minutes Assessment and Plan - Patient/Caregiver Discharge Instructions Activity: resume usual activities as tolerated Diet: regular diet Additional Instructions: Avoid alcohol and drugs of abuse the patient was advised to quit smoking and has been prescribed nicotine lozenges on an outpatient basis - Follow up Plan Follow up with: [facility] [Outside] - 06/02/18 11:30 am (You are returning into mental health respite at [facility] on discharge from the hospital. While there, you will be seen daily by the clinic counselors and patient case manager, both individually and in group. You will also see Saba Louis for outpatient psychiatric assessment and medication management services on 06/02/2018 at 11:30am.) Functional capacity at discharge: independent ambulation Overall status at discharge: Stable Disposition: Home, Self-Care Quality - Multiple Antipsychotics Patient discharged on 2 or more antipsychotic medications: No Procedures - Procedures Procedures: Medication Management, Supportive Therapy, Group Therapy, Psychoeducational Therapy
--- NOTE | 2018-06-01 11:16 | Psychiatry Progress Note ---
Date of Encounter: 06/01/18 Time of Encounter: 11:00 Subjective Interval history: D the patient is a 37-year-old white male. Chief complaint I did not use hands up on my face. I need to see a dentist I am not hearing any voices. I am ready to go to the [facility]. History of present illness: The patient previously improved and was ready for a transition to a different level of care however due to a community emergency the patient could not return to the [facility] and this was because the Health Center had all available staff called to a crisis in the community. The patient was informed that he could not be discharged on 2017. His discharge order was canceled. His medications were are descended head. The patient understands that be discharged prior to his scheduled appointment. He reports being compliant although he verbalizes understanding and may require reinforcement. Review of Systems Psychiatric: Reports: abnormal sleep pattern Results - Vital Signs Vital Signs: Temp Pulse Resp BP 97.5 F L 88 20 102/76 06/01/18 09:00 06/01/18 09:00 06/01/18 09:00 06/01/18 09:00 Assessment and Plan (1) Catatonic schizophrenia Current visit: Yes Status: Acute Risks, benefits, side effects, alternatives discussed w/pt: Yes Patient agreeable to treatment: Yes (2) Essential (primary) hypertension Current visit: Yes Status: Chronic Risks, benefits, side effects, alternatives discussed w/pt: Yes Patient agreeable to treatment: Yes (3) Patient's noncompliance with other medical treatment and regimen Current visit: Yes Status: Chronic Risks, benefits, side effects, alternatives discussed w/pt: Yes Patient agreeable to treatment: Yes (4) Catatonia associated with another mental disorder Current visit: No Status: Acute Risks, benefits, side effects, alternatives discussed w/pt: Yes Patient agreeable to treatment: Yes (5) Cigarette nicotine dependence, uncomplicated Current visit: Yes Status: Chronic Consult Discharge Plan - Plan Instructions: Schizophrenia (DC), Chronic Hypertension (DC) Additional Instructions: Avoid alcohol and drugs of abuse the patient was advised to quit smoking and has been prescribed nicotine lozenges on an outpatient basis Referrals: [facility] [Outside] - 06/02/18 11:30 am (You are returning into mental health respite at [facility] on discharge from the hospital. While there, you will be seen daily by the clinic counselors and caseworker protective services, both individually and in group. You will also see Saba Heriberto for outpatient psychiatric assessment and medication management services on 06/02/2018 at 11:30am.) Prescriptions: LORazepam [Ativan] 2 mg PO TID 15 Days #45 tablet Lurasidone [Latuda] 160 mg PO QPM 14 Days #14 tablet Psychiatry Exam - Constitutional Vitals: Temp Pulse Resp BP 97.5 F L 88 20 102/76 06/01/18 09:00 06/01/18 09:00 06/01/18 09:00 06/01/18 09:00 General appearance: unkempt, disheveled, obese - Musculoskeletal Gait: slow - Psychiatric Patient Orientation: Yes Person, Yes Time, Yes Place, Yes Circumstance Level of alertness: Alert Psychomotor activity: Slowed Eye Contact: Minimal Contact Mood Description: Other Affect description: blunted Speech Volume: Soft/Quiet Speech pattern: normal rate Language & Vocabulary: limited Thought Process: Slowed Thinking Thought Content: Yes Poverty of Content Attention Span Ability: Capable of Sustained Attention Memory Description: Grossly Intact Patient Reliability: Questionable Historian Intelligence Estimate: Below Average Judgment: Limited Insight: Minimal
[2018-06-01] MEDS: hydrOXYzine pamoate 25 MG CAPSULE PO PRN (20:21)
[2018-06-01] MEDS: traZODone 50 MG TABLET PO PRN (20:22)
[2018-06-01] MEDS: Acetaminophen 325 MG TABLET PO PRN (20:24)
[2018-06-02] MEDS: Divalproex (12 HR) 250 MG TABLET PO SCH (08:34)
[2018-06-02] MEDS: NALTREXONE HCL 50 MG TABLET PO SCH (08:35)
[2018-06-02] MEDS: *HR* LORazepam 1 MG TABLET PO SCH (08:35)
[2018-06-02 09:42] VITALS: BP 123/98
--- NOTE | 2018-06-02 09:58 | Discharge Summary ---
Date of Encounter: 06/02/18 Time of Encounter: 10:00 Diagnosis - Discharge Diagnosis (1) Catatonic schizophrenia Status: Acute (2) Essential (primary) hypertension Status: Chronic (3) Patient's noncompliance with other medical treatment and regimen Status: Chronic (4) Catatonia associated with another mental disorder Status: Acute (5) Cigarette nicotine dependence, uncomplicated Status: Chronic Medications - Discharge Medications Prescriptions: LORazepam [Ativan] 2 mg PO TID 15 Days #45 tablet Lurasidone [Latuda] 160 mg PO QPM 14 Days #14 tablet Benztropine [Cogentin] 1 mg PO BID 30 Days #60 tablet 12/21/17 [Rx] Divalproex (12 HR) [Depakote (12 HR)] 250 mg PO BID 30 Days #60 tablet.dr [Rx] Naltrexone HCl 50 mg PO DAILY 30 Days #30 tablet 12/21/17 [Rx] Propranolol [Inderal] 20 mg PO BID 30 Days #60 tablet 12/21/17 [Rx] Amantadine [Symmetrel] 100 mg PO BID #60 capsule 05/18/18 [Rx] Nicotine Gum [Nicorette gum] 4 mg BC Q2H PRN #60 gum 05/18/18 [Rx] LORazepam [Ativan] 2 mg PO TID 15 Days #45 tablet 06/01/18 [Rx] Lurasidone [Latuda] 160 mg PO QPM 14 Days #14 tablet 06/01/18 [Rx] 3 Allergy/AdvReac Type Severity Reaction Status Date / Time No Known Allergies Allergy Verified 05/24/18 14:45 Provider Date of admission: 05/25/18 15:32 Primary care physician: PCP NONE Consults: 05/26/18 10:33 Consult to Pastoral Services [CONS] Routine Comment: 05/28/18 11:04 Consult to Pastoral Services [CONS] Routine Comment: Discharging clinician: Martin Bailon Psychiatry Exam - Constitutional Vitals: Temp Pulse Resp BP 98.7 F 103 20 123/98 06/02/18 09:00 06/02/18 09:00 06/02/18 09:00 06/02/18 09:00 General appearance: unkempt, malodorous, obese - Musculoskeletal Gait: normal Station: relaxed Strength & Tone: normal for patient - Psychiatric Patient Orientation: Yes Person Level of alertness: Alert Behavior: calm, cooperative Psychomotor activity: Normal Eye Contact: Maintains Eye Contact Mood Description: Euthymic/stable Affect description: congruent with mood, blunted Speech Volume: Soft/Quiet Speech pattern: normal rate, normal rhythm, normal tone, fluent, spontaneous Language & Vocabulary: consistent with education Thought Process: Linear, Goal Oriented Thought Content: No Suicidal ideation, No Homicidal ideation, No Overt delusions Perceptual Disturbances: No Auditory hallucinations, No Visual hallucinations Attention Span Ability: Capable of Sustained Attention Memory Description: Grossly Intact Patient Reliability: Questionable Historian Fund of knowledge: Yes abstraction ability, Yes below average Intelligence Estimate: Below Average Judgment: Limited Insight: Minimal Hospital Course Hospital course: Mr. Miller is a 37 year old male Chief complaint I will give up smoking. History of present illness the patient was admitted to one . He had had a negative workup for chest pain. He had his medicines adjusted. There were concerns about EPS and TD. The patient tolerated the medicines without significant rigidity tremor restlessness shakes had some minor abnormal movements. The patient reported no hallucinations or delusions at the time of discharge. He noted rather stable mood. The patient has a history catatonia. Catatonia and did not occur in the days before admission. The patient was discharged to the local [facility] [place] for follow-up Time spent discussing smoking cessation with patient: 3 to 10 minutes Does patient wish to continue nicotine replacement upon disc: Yes - Time Spent with Patient Total time spent providing and/or coordinating discharge services: Less than 30 minutes Assessment and Plan - Patient/Caregiver Discharge Instructions Activity: resume usual activities as tolerated Diet: regular diet Additional Instructions: Avoid alcohol and drugs of abuse the patient was advised to quit smoking and has been prescribed nicotine lozenges on an outpatient basis - Follow up Plan Follow up with: [facility] [Outside] - 06/02/18 11:30 am (You are returning into mental health respite at [facility] on discharge from the hospital. While there, you will be seen daily by the clinic counselors and heel caser, both individually and in group. You will also see Saba Louis for outpatient psychiatric assessment and medication management services on 06/02/2018 at 11:30am.) Overall status at discharge: patient is back to baseline Disposition: Home, Self-Care Quality - Multiple Antipsychotics Patient discharged on 2 or more antipsychotic medications: No Procedures - Procedures Procedures: Medication Management, Crisis Stabilization, Supportive Therapy, Group Therapy, Psychoeducational Therapy
== END 2018-06-02 10:55 | disposition home or self-care (01) | DRG 750 ==
LOC: 1ANU 15:32
PROVIDERS: ADMIT General Practice; ATTEND General Practice

== ENCOUNTER 2018-06-06 13:57 | Observation (INO) ==
[2018-06-06] MEDS ORDERED: *HR* LORazepam 2 MG/ML VIAL IVP ONE (14:04)
[2018-06-06] MEDS ORDERED: *HR* LORazepam 2 MG/ML VIAL IM ONE ×2 (14:05→17:32)
[2018-06-06 14:37] LABS: Bilirubin,Urine Small (Negative); Blood,Urine Negative (Negative); Clarity,Urine Clear (Clear); Glucose,Urine (UA) Normal (Normal); Ketones,Urine Trace mg/dL (Negative); Leukocyte Esterase,Urine Trace (Negative); Nitrite,Urine Negative (Negative); Protein,Urine 30 mg/dL (Neg-Trace); Urobilinogen,Urine Normal (Normal)
[2018-06-06 14:39] LABS: Bacteria,Urine None Seen per hpf (None-Few); Hyaline Casts,Urine Few per lpf (None-Few); Squamous Epithelial Cell,Urine Many per lpf (None-Few); WBC,Urine 0-3 per hpf (0-3)
[2018-06-06 14:41] LABS: Color,Urine Dark Yellow (Yellow)
[2018-06-06 15:05] LABS: Amphetamine Screen,Urine Positive ng/mL (Cutoff=1000); Barbiturate Screen,Urine Negative ng/mL (Cutoff=200); Benzodiazepines Screen,Urine Negative ng/mL (Cutoff=200); Cannabinoid Screen,Urine Negative ng/mL (Cutoff = 50); Cocaine Screen,Urine Positive ng/mL (Cutoff= 300); Opiate Screen,Urine Negative ng/mL (Cutoff=300); Phencyclidine Screen,Urine Negative ng/mL (Cutoff=25)
[2018-06-06 15:46] LABS: Basophils # 0.1 K/mcL (0.0-0.2); Basophils % 0.3 %; Hematocrit 50.7 % (37.5-50.1); Hemoglobin 17.6 g/dL (12.9-16.9); Immature Granulocytes % 0.5 % (0-4); Lymphocytes # 1.9 K/mcL (0.6-4.6); Lymphocytes % 8.9 %; Mean Corpuscular HGB Conc 34.7 g/dL (31.6-35.5); Mean Corpuscular Hemoglobin 31.2 pg (28.0-33.3); Mean Corpuscular Volume 89.7 fL (83.0-100.0); Monocytes # 2.5 K/mcL (0.0-1.3); Monocytes % 11.9 %; Neutrophils # 16.2 K/mcL (1.6-8.9); Platelet Count 401 K/mcL (140-400); Red Blood Count 5.65 M/mcL (4.19-5.50); Red Cell Distribution Width 12.9 % (11.5-14.5); Segmented Neutrophils % 78.4 %
[2018-06-06 16:06] LABS: Acetaminophen < 10 mcg/mL (10-20); BUN/Creatinine Ratio 12 (6-26); Blood Urea Nitrogen 32 mg/dL (6-20); Calcium 10.6 mg/dL (8.6-10.3); Carbon Dioxide 17 mEq/L (23-29); Chloride 106 mEq/L (98-107); Ethanol < 10 mg/dL (Less than 10); Glucose 151 mg/dL (70-105); Osmolality,Calculated 300 (280-300); Potassium 4.2 mEq/L (3.5-5.1); Salicylate < 2.5 mg/dL (15.0-30.0); Sodium 140 mEq/L (136-145); eGFR For Non-African Americans 26 (> 60)
--- NOTE | 2018-06-06 16:30 | Emergency Department Note ---
Disposition Clinical Impression: Drug abuse, YOVANI (acute kidney injury), Catatonic schizophrenia Rhabdomyolysis Qualifiers: Rhabdomyolysis type: non-traumatic Qualified Code(s): M62.82 - Rhabdomyolysis Disposition: Admitted As Inpatient Condition: Fair Time of Disposition: 18:33 Psych HPI - General Stated Complaint: meth? Time Seen by Provider: 06/06/18 14:02 Source: EMS Mode of arrival: EMS Limitations: other (catatonic) Nursing Notes Reviewed: Yes Vital Signs Reviewed: Yes - History of Present Illness HPI Narrative: Patient is a 37-year-old male who presents to [facility] ED via EMS from [facility]. Apparently patient tried to check and there and has been high on meth for the last 3 days. Upon his presentation, patient is not communicating verbally. He is staring off and refuses to talk or answer questions. He is awake and alert. Pt complaint: medical clearance request Onset (ago): Just SAMPLE [employer] History of similar episodes: Yes Improves with: none Worsens with: none Context: recent drug abuse - Related Data Previous Rx's Medication Instructions Recorded Benztropine [Cogentin] 1 mg PO BID 30 Days #60 tablet 12/21/17 Divalproex (12 HR) [Depakote (12 250 mg PO BID 30 Days #60 tablet.dr 12/21/17 HR)] Naltrexone HCl 50 mg PO DAILY 30 Days #30 tablet 12/21/17 Propranolol [Inderal] 20 mg PO BID 30 Days #60 tablet 12/21/17 Amantadine [Symmetrel] 100 mg PO BID #60 capsule 05/18/18 Nicotine Gum [Nicorette gum] 4 mg BC Q2H PRN #60 gum 05/18/18 LORazepam [Ativan] 2 mg PO TID 15 Days #45 tablet 06/01/18 Lurasidone [Latuda] 160 mg PO QPM 14 Days #14 tablet 06/01/18 Allergies Allergy/AdvReac Type Severity Reaction Status Date / Time No Known Allergies Allergy Verified 05/24/18 14:45 Limitations: ROS unobtainable due to patients medical condition Past Medical History - Past Medical History Attestation: Yes The following information was validated with the patient. Source: patient Medical history: Reports: hypertension, pulmonary embolus Surgical history: Reports: appendectomy, arthroscopy Psychiatric history: Reports: schizophrenia - Social History Smoking Status: Current every day smoker Smokeless Tobacco Status: No Alcohol use: Reports: occasionally Drug use: Reports: cocaine, marijuana, methamphetamine Physical Exam - General Limitations: no limitations General appearance: alert - Head Head exam: atraumatic, normocephalic, normal inspection - Eye Eye exam: Present: EOMI - ENT ENT exam: normal exam, normal oropharynx, mucous membranes moist - Neck Neck exam: Present: normal inspection, full ROM, trachea midline - Chest Chest inspection: Present: normal inspection, symmetric chest wall rise - Respiratory Respiratory exam: Present: normal lung sounds bilaterally - Cardiovascular Cardiovascular exam: Present: normal rhythm, tachycardia, normal heart sounds - Abdominal Exam Abdominal exam: Present: soft, Non-Tender. Absent: tenderness, distention, guarding, rebound, rigidity - Extremities Exam Extremities exam: Present: normal inspection, full ROM. Absent: tenderness, pedal edema - Neurological Exam Neurological exam: Present: alert - Psychiatric Psychiatric exam: Present: flat affect, other (catatonic) - Skin Skin exam: Present: warm, dry, intact, normal color Course Course Narrative: Patient seen and examined. Upon my examination, patient is not communicating. He is staring off behind me. He does not answer any questions. He is continually standing up and is trying to walk out of the room. 2 mg IM Ativan ordered. We will do psych clearance labwork. - Reevaluation(s) Reevaluation #1: Patient's lab work shows signs of acute renal failure. This does not seem to be from dehydration due to the low BUN/creatinine ratio. We will add a CPK level. His EKG also states showed some signs of mild ST depression in the lateral leads. We will add a troponin level as well. The CPK came back elevated in the 400s. Liter IV fluids ordered. He ripped out his IV so decision was made to give him 50 mg of Benadryl, 5 mg Haldol and 2 mg Ativan IM to help with medical complaints. Time: 18:39 Vital Signs Temperature 98.8 F 06/06/18 14:01 Pulse Rate 124 06/06/18 14:01 Respiratory Rate 20 06/06/18 14:01 Blood Pressure 137/104 06/06/18 14:01 O2 Sat by Pulse Oximetry 99 06/06/18 14:01 Temperature 98.8 F 06/06/18 14:01 Pulse Rate 118 06/06/18 14:17 Respiratory Rate 24 06/06/18 14:17 Blood Pressure 137/104 06/06/18 14:17 O2 Sat by Pulse Oximetry 98 06/06/18 14:17 Oxygen Delivery Oxygen Delivery Room Air Psych - Differential Diagnosis Likely: chronic psychiatric disease - Medical Records Medical records reviewed: Yes I reviewed the patient's medical records. - Lab Data Lab results reviewed: Yes I reviewed the patient's lab results. Result diagrams: 06/06/18 15:33 06/06/18 15:33 Lab Results 06/06/18 06/06/18 06/06/18 Range/Units 14:28 14:28 15:33 WBC 20.7 H (4.3-11.1) K/mcL RBC 5.65 H (4.19-5.50) M/mcL Hgb 17.6 H (12.9-16.9) g/dL Hct 50.7 H (37.5-50.1) % MCV 89.7 (83.0-100.0) fL MCH 31.2 (28.0-33.3) pg MCHC 34.7 (31.6-35.5) g/dL RDW 12.9 (11.5-14.5) % Plt Count 401 H (140-400) K/mcL MPV 11.0 (9.4-12.4) fL Immature Gran % 0.5 (0-4) % Seg Neutrophils % 78.4 % Lymphocytes % 8.9 % Monocytes % 11.9 % Eosinophils % 0.0 % Basophils % 0.3 % Neutrophils # 16.2 H (1.6-8.9) K/mcL Lymphocytes # 1.9 (0.6-4.6) K/mcL Monocytes # 2.5 H (0.0-1.3) K/mcL Eosinophils # 0.0 (0.0-0.6) K/mcL Basophils # 0.1 (0.0-0.2) K/mcL Sodium (136-145) mEq/L Potassium (3.5-5.1) mEq/L Chloride (98-107) mEq/L Carbon Dioxide (23-29) mEq/L BUN (6-20) mg/dL Creatinine (0.70-1.30) mg/dL Est GFR ( Amer) (> 60) Est GFR (Non-Af Amer) (> 60) BUN/Creatinine Ratio (6-26) Glucose (70-105) mg/dL Calculated Osmolality (280-300) Calcium (8.6-10.3) mg/dL Creatine Kinase (30-223) Units/L Troponin I (< 0.04) ng/mL Urine Color Dark Yellow (Yellow) Urine Clarity Clear (Clear) Urine pH 5.0 (5.0-8.0) pH Units Ur Specific [place] 1.030 H (1.010-1.025) Urine Protein 30 H (Neg-Trace) mg/dL Urine Glucose (UA) Normal (Normal) mg/dL Urine Ketones Trace H (Negative) mg/dL Urine Blood Negative (Negative) Urine Nitrite Negative (Negative) Urine Bilirubin Small H (Negative) Urine Urobilinogen Normal (Normal) mg/dL Ur Leukocyte Esterase Trace H (Negative) Urine Microscopic RBC 3-5 H (0-3) per hpf Urine Microscopic WBC 0-3 (0-3) per hpf Ur Squamous Epith Cells Many H (None-Few) per lpf Urine Bacteria None Seen (None-Few) per hpf Hyaline Casts Few (None-Few) per lpf Salicylates (15.0-30.0) mg/dL Urine Opiates Screen Negative (Hnltte=262) ng/mL Acetaminophen (10-20) mcg/mL Ur Barbiturates Screen Negative (Molsei=099) ng/mL Ur Phencyclidine Scrn Negative (Cutoff=25) ng/mL Ur Amphetamines Screen Positive H (Zpjtid=2126) ng/mL U Benzodiazepines Scrn Negative (Kqafly=593) ng/mL Urine Cocaine Screen Positive H (Cutoff= 300) ng/mL U Marijuana (THC) Screen Negative (Cutoff = 50) ng/mL Ur Drug Screen Interp See Below Ethyl Alcohol (Less than 10) mg/dL 06/06/18 Range/Units 15:33 WBC (4.3-11.1) K/mcL RBC (4.19-5.50) M/mcL Hgb (12.9-16.9) g/dL Hct (37.5-50.1) % MCV (83.0-100.0) fL MCH (28.0-33.3) pg MCHC (31.6-35.5) g/dL RDW (11.5-14.5) % Plt Count (140-400) K/mcL MPV (9.4-12.4) fL Immature Gran % (0-4) % Seg Neutrophils % % Lymphocytes % % Monocytes % % Eosinophils % % Basophils % % Neutrophils # (1.6-8.9) K/mcL Lymphocytes # (0.6-4.6) K/mcL Monocytes # (0.0-1.3) K/mcL Eosinophils # (0.0-0.6) K/mcL Basophils # (0.0-0.2) K/mcL Sodium 140 (136-145) mEq/L Potassium 4.2 (3.5-5.1) mEq/L Chloride 106 (98-107) mEq/L Carbon Dioxide 17 L (23-29) mEq/L BUN 32 H (6-20) mg/dL Creatinine 2.78 H (0.70-1.30) mg/dL Est GFR ( Amer) 32 L (> 60) Est GFR (Non-Af Amer) 26 L (> 60) BUN/Creatinine Ratio 12 (6-26) Glucose 151 H (70-105) mg/dL Calculated Osmolality 300 (280-300) Calcium 10.6 H (8.6-10.3) mg/dL Creatine Kinase 421 H (30-223) Units/L Troponin I 0.03 (< 0.04) ng/mL Urine Color (Yellow) Urine Clarity (Clear) Urine pH (5.0-8.0) pH Units Ur Specific [place] (1.010-1.025) Urine Protein (Neg-Trace) mg/dL Urine Glucose (UA) (Normal) mg/dL Urine Ketones (Negative) mg/dL Urine Blood (Negative) Urine Nitrite (Negative) Urine Bilirubin (Negative) Urine Urobilinogen (Normal) mg/dL Ur Leukocyte Esterase (Negative) Urine Microscopic RBC (0-3) per hpf Urine Microscopic WBC (0-3) per hpf Ur Squamous Epith Cells (None-Few) per lpf Urine Bacteria (None-Few) per hpf Hyaline Casts (None-Few) per lpf Salicylates < 2.5 L (15.0-30.0) mg/dL Urine Opiates Screen (Aygvtr=840) ng/mL Acetaminophen < 10 L (10-20) mcg/mL Ur Barbiturates Screen (Fswjcs=022) ng/mL Ur Phencyclidine Scrn (Cutoff=25) ng/mL Ur Amphetamines Screen (Dqzmlh=5777) ng/mL U Benzodiazepines Scrn (Uwpuxl=245) ng/mL Urine Cocaine Screen (Cutoff= 300) ng/mL U Marijuana (THC) Screen (Cutoff = 50) ng/mL Ur Drug Screen Interp Ethyl Alcohol < 10 (Less than 10) mg/dL - Radiology Data Radiology results reviewed: Yes I reviewed the patient's radiology results. Chest X-Ray 06/06/18 16:26 IMPRESSION: No acute cardiopulmonary disease. D/ / Kirill Figueroa MD / Kirill Figueroa MD Interpreting Provider: Kirill Figueroa MD - EKG Data EKG attestation: Yes I reviewed and interpreted this EKG. EKG results narrative: EKG done at 1407 shows sinus tachycardia with a rate of [address] elevation. Mild ST depression noted in leads V3 through V6. This does appear new compared to prior EKG done 05/25/2018. Psychiatric Medical Clearance - Medical Clearance Checklist Does the patient have a NEW psychiatric condition?: No Any abnormalities indicating possible medical illness?: Yes Any history of medical issues?: No Medical History: No Social History Section defined Any abnormal vital signs prior to transfer?: Yes Current Vitals: Last Vital Signs Temp 98.8 F 06/06/18 14:01 Pulse 118 06/06/18 14:17 Resp 24 06/06/18 14:17 BP 137/104 06/06/18 14:17 Pulse Ox 98 06/06/18 14:17 Is the patient intoxicated or cognitively impaired?: Yes (catatonic) Psychiatric Lab Panel: Drug Levels and Toxicity 06/06/18 06/06/18 14:28 15:33 Urine Opiates Screen Negative Acetaminophen < 10 L Ur Barbiturates Screen Negative Ur Phencyclidine Scrn Negative Ur Amphetamines Screen Positive H U Benzodiazepines Scrn Negative Urine Cocaine Screen Positive H U Marijuana (THC) Screen Negative Ethyl Alcohol < 10 Any abnormalities on the physical exam?: No Any abnormal labs?: Yes Abnormal Labs: Abnormal lab results WBC 20.7 K/mcL (4.3-11.1) H 06/06/18 15:33 RBC 5.65 M/mcL (4.19-5.50) H 06/06/18 15:33 Hgb 17.6 g/dL (12.9-16.9) H 06/06/18 15:33 Hct 50.7 % (37.5-50.1) H 06/06/18 15:33 Plt Count 401 K/mcL (140-400) H 06/06/18 15:33 Neutrophils # 16.2 K/mcL (1.6-8.9) H 06/06/18 15:33 Monocytes # 2.5 K/mcL (0.0-1.3) H 06/06/18 15:33 Carbon Dioxide 17 mEq/L (23-29) L 06/06/18 15:33 BUN 32 mg/dL (6-20) H 06/06/18 15:33 Creatinine 2.78 mg/dL (0.70-1.30) H 06/06/18 15:33 Est GFR ( Amer) 32 (> 60) L 06/06/18 15:33 Est GFR (Non-Af Amer) 26 (> 60) L 06/06/18 15:33 Glucose 151 mg/dL (70-105) H 06/06/18 15:33 Calcium 10.6 mg/dL (8.6-10.3) H 06/06/18 15:33 Creatine Kinase 421 Units/L (30-223) H 06/06/18 15:33 Ur Specific [place] 1.030 (1.010-1.025) H 06/06/18 14:28 Urine Protein 30 mg/dL (Neg-Trace) H 06/06/18 14:28 Urine Ketones Trace mg/dL (Negative) H 06/06/18 14:28 Urine Bilirubin Small (Negative) H 06/06/18 14:28 Ur Leukocyte Esterase Trace (Negative) H 06/06/18 14:28 Urine Microscopic RBC 3-5 per hpf (0-3) H 06/06/18 14:28 Ur Squamous Epith Cells Many per lpf (None-Few) H 06/06/18 14:28 Salicylates < 2.5 mg/dL (15.0-30.0) L 06/06/18 15:33 Acetaminophen < 10 mcg/mL (10-20) L 06/06/18 15:33 Ur Amphetamines Screen Positive ng/mL (Rxvkcf=4913) H 06/06/18 14:28 Urine Cocaine Screen Positive ng/mL (Cutoff= 300) H 06/06/18 14:28 Does the patient require durable medical equiptment?: No ( ) Is the patient ambulatory?: Yes Is the patient a fall risk?: No Has the patient been medically cleared?: No Any acute medical condition require Tx prior to transfer?: Yes Attestation Statement - Attestation Attestation: I, Roque Dominique, examined this patient and my medical decision-making was reviewed with the [employer]/PA/Advanced Practice Nurse/Resident Physician. I agree with the documented findings, disposition and treatment plan as described except to the extent set forth below. 37-year-old male brought to the emergency department for abnormal behavior. Patient is well-known to the emergency department and was just discharged from the hospital for a similar presentation within the past 3 days. Apparently the patient had gone home and used a large amount of methamphetamines. Today he is unable to give a history regarding his case and presentation. He stares at the wall and is unable or unwilling to answer questions. Moving all extremities without difficulty. Laboratory at evaluation shows elevated CPK as well as acute renal failure. An IV was placed to give the patient IV fluids which he promptly ripped out. I believe that he is not in the right state of mind to understand his actions, he was then given sedating medications in order to give him fluids as he is likely a danger to himself at this time. Patient will be admitted to the hospitalist for further care and evaluation.
[2018-06-06] MEDS ORDERED: 0.9 % Sodium Chloride 1,000 ML IVC ONE (16:31)
[2018-06-06] MEDS ORDERED: Haloperidol Lactate 5 MG/ML VIAL IM ONE (17:31)
[2018-06-06 18:16] LABS: Creatine Kinase 421 Units/L (30-223); Troponin I 0.03 ng/mL (< 0.04)
[2018-06-06] MEDS ORDERED: *HR* LORazepam 2 MG/ML VIAL IM STA ×2 (19:17→19:45)
[2018-06-06] MEDS ORDERED: Ziprasidone injection 20 MG/ML VIAL IM ONE (19:59)
[2018-06-06] MEDS: Ziprasidone injection 20 MG/ML VIAL IM ONE ×2 (20:02→21:23)
[2018-06-06] MEDS ORDERED: Naloxone 0.4 MG/ML INJ IVP PRN (20:58)
[2018-06-06] MEDS: 0.9 % Sodium Chloride 1,000 ML IVC SCH ×2 (21:23→23:22)
[2018-06-07 07:19] LABS: Basophils % 0.4 %; Eosinophils # 0.1 K/mcL (0.0-0.6); Eosinophils % 0.7 %; Hematocrit 40.3 % (37.5-50.1); Immature Granulocytes % 0.3 % (0-4); Lymphocytes # 2.6 K/mcL (0.6-4.6); Lymphocytes % 25.5 %; Mean Corpuscular HGB Conc 34.2 g/dL (31.6-35.5); Mean Corpuscular Hemoglobin 30.8 pg (28.0-33.3); Mean Platelet Volume 11.1 fL (9.4-12.4); Monocytes # 1.3 K/mcL (0.0-1.3); Monocytes % 12.8 %; Platelet Count 237 K/mcL (140-400); Red Blood Count 4.48 M/mcL (4.19-5.50); Red Cell Distribution Width 12.7 % (11.5-14.5); Segmented Neutrophils % 60.3 %
[2018-06-07 07:26] LABS: Hemoglobin 13.8 g/dL (12.9-16.9); Neutrophils # 6.2 K/mcL (1.6-8.9)
[2018-06-07 07:39] LABS: Alanine Aminotransferase 32 Units/L (7-52); Albumin 3.9 g/dL (3.5-5.7); Albumin/Globulin Ratio 1.5 (1.1-2.2); Alkaline Phosphatase 78 Units/L (34-104); Aspartate Amino Transferase 28 Units/L (13-39); BUN/Creatinine Ratio 19 (6-26); Bilirubin,Total 1.8 mg/dL (0.3-1.0); Blood Urea Nitrogen 22 mg/dL (6-20); Calcium 8.6 mg/dL (8.6-10.3); Carbon Dioxide 21 mEq/L (23-29); Chloride 103 mEq/L (98-107); Globulin 2.6 g/dL (2.4-3.5); Glucose 118 mg/dL (70-105); Osmolality,Calculated 284 (280-300); Potassium 3.2 mEq/L (3.5-5.1); Sodium 135 mEq/L (136-145); Total Protein 6.5 g/dL (6.4-8.9); eGFR For Non-African Americans > 60 (> 60)
--- NOTE | 2018-06-07 07:49 | Internal Med History&Physical ---
Date of Encounter: 06/08/18 Time of Encounter: 01:00 Internal Medicine - H&P: HPI Chief complaint: AMS History of present illness: Mr. Miller is a 37 year old male with a past medical history of schizophrenia who presents to [facility] ED via EMS from [facility]. Was unable to obtain a history from the patient as he was somnolent and difficult to arouse. Per ED medical records, patient tried to check in to [facility] where he reportedly has been high on meth for the last 3 days. Patient was not communicating verbally upon initial assessment downstairs in the ED. Behavior described as staring off and refusing to talk or answer questions. Although he remained awake and alert. When I went to see the patient he was lying in bed asleep. He was difficult or rales. When I attempted to open his eyelids he would close down his eyelids tightly. He was not following verbal commands and was pushing away my hand upon examination. According to the ED, Patient is well-known to the emergency department and was just discharged from the hospital for a similar presentation within the past 3 days. His laboratory findings were notable for an elevated white blood cell count of 20.7, elevated CPK as well as acute renal failure. UA was positive for amphetamines and cocaine. Report is that patient apparently had gone home and used a large amount of methamphetamines. Past Med Surg Social Fam HX - Past Medical History Medical history: hypertension, pulmonary embolus Additional medical history: traumatic brain injury Psychiatric history: schizophrenia - Past Surgical History Surgical History: appendectomy, arthroscopy Additional surgical history: right knee surgery - Social History Smoking Status: Current every day smoker Smokeless Tobacco Status: No Alcohol use: occasionally Drug use: cocaine, marijuana, methamphetamine - Family History Father Adopted: No Family Member Ethnicity: Non- Living Status: Still Living Hx Family Cardiac Disorders: No Hx Family Respiratory Disorders: No Hx Family Cancer: No Hx Family GI Disorders: No Hx Family Endocrine Disorder: No Hx Family Neuromuscular Disorders: No Hx Family Neurologic Disorders: No Hx Family HEENT Disorders: No Hx Family Autoimmune Disorders: No Internal Medicine - H&P: Meds Benztropine [Cogentin] 1 mg PO BID 30 Days #60 tablet 12/21/17 [Rx] Divalproex (12 HR) [Depakote (12 HR)] 250 mg PO BID 30 Days #60 tablet. [Rx] Naltrexone HCl 50 mg PO DAILY 30 Days #30 tablet 12/21/17 [Rx] Propranolol [Inderal] 20 mg PO BID 30 Days #60 tablet 12/21/17 [Rx] Amantadine [Symmetrel] 100 mg PO BID #60 capsule 05/18/18 [Rx] Nicotine Gum [Nicorette gum] 4 mg BC Q2H PRN #60 gum 05/18/18 [Rx] LORazepam [Ativan] 2 mg PO TID 15 Days #45 tablet 06/01/18 [Rx] Lurasidone [Latuda] 160 mg PO QPM 14 Days #14 tablet 06/01/18 [Rx] 3 Allergy/AdvReac Type Severity Reaction Status Date / Time No Known Allergies Allergy Verified 05/24/18 14:45 ROS unobtainable: due to endotracheal tube, due to mental status All Systems PM: A 10-system review of systems was performed and is negative for pertinent findings except as documented above in the HPI. - Constitutional Vitals: Temp Pulse Resp BP Pulse Ox 97.5 F L 82 17 120/85 97 06/06/18 23:10 06/06/18 23:10 06/06/18 23:10 06/06/18 23:10 06/06/18 23:10 Exam: General: Lying in bed asleep; difficult to arouse. Skin:Normal color, no rash, no lesions. HEENT:EOM, pupils equal, round and reactive. Cardiovascular:Normal S1 & S2, no rubs, murmurs or gallops. No JVD. Pulse regular. Lungs:Normal breath sounds, no wheezes or crackles. Abdomen:Soft, non-tender, no rigidity. Extremities:No deformity, no edema or tenderness, no joint swelling or clubbing. Neurological: Somnolent, difficult to arouse pushing my hand away upon examination. Pulses:Carotid and radial pulses normal +2. Rest of the physical exam is non contributory Internal Med - H&P Results - Labs CBC & Chem 7: 06/08/18 04:26 06/08/18 04:26 Labs: Short CBC 06/07/18 Range/Units 06:33 WBC 10.2 D (4.3-11.1) K/mcL Hgb 13.8 D (12.9-16.9) g/dL Hct 40.3 (37.5-50.1) % Plt Count 237 (140-400) K/mcL Neutrophils # 6.2 (1.6-8.9) K/mcL BMP 06/07/18 06:33 Sodium 135 L Potassium 3.2 L Chloride 103 Carbon Dioxide 21 L BUN 22 H Creatinine 1.14 Glucose 118 H Calcium 8.6 Liver Function 06/07/18 Range/Units 06:33 Total Bilirubin 1.8 H (0.3-1.0) mg/dL AST 28 (13-39) Units/L ALT 32 (7-52) Units/L Alkaline Phosphatase 78 (34-104) Units/L Albumin 3.9 (3.5-5.7) g/dL - Assessment and plan (1) Altered mental status, unspecified Current Visit: Yes Status: Acute Assessment and plan: Altered mental status likely secondary to methamphetamine and cocaine abuse given positive urine toxicology. We will continue with supportive care for now. Patient will likely need some psychiatric consultation Qualifiers: Altered mental status type: unspecified Qualified Code(s): R41.82 - Altered mental status, unspecified (2) YOVANI (acute kidney injury) Current Visit: Yes Status: Acute Assessment and plan: Acute kidney injury likely prerenal which is now resolved after fluid support. This is further supported by elevation in all 3 blood lines supporting dehydration status. He received a liter of fluid bolus in the ED. We will continue moderate hydration. (3) Rhabdomyolysis Current Visit: Yes Status: Acute Assessment and plan: Possible mild rhabdomyolysis given mildly elevated creatinine phosphokinase. We will recheck. Qualifiers: Rhabdomyolysis type: non-traumatic Qualified Code(s): M62.82 - Rhabdomyolysis (4) Drug abuse Current Visit: Yes Status: Acute Assessment and plan: Urine toxicology positive for methamphetamines and cocaine. - Time Spent With Patient Total time spent is greater than 50% in coordination of care (as documented) at patient's floor/unit and/or counseling patient:
[2018-06-07 10:26] LABS: Creatine Kinase 509 Units/L (30-223)
--- NOTE | 2018-06-07 10:39 | Event Note ---
Date of Encounter: 06/07/18 Time of Encounter: 10:35 Seen and assessed. Agree with plan per night team for acute metabolic encephalopathy likely secondary to drug overdose with meth and cocaine and schizophrenia Also has hypokalemia, acute kidney injury and rhabdomyolysis. Will give IV fluids and replace potassium Psych recs appreciated
[2018-06-07] MEDS ORDERED: Acetaminophen 325 MG TABLET PO PRN (11:02)
[2018-06-07] MEDS ORDERED: Nicotine 2 MG GUM BC PRN (12:17)
[2018-06-07] MEDS: Potassium Chloride Elixir 20 MEQ/15 ML UDC PO SCH ×2 (12:42→17:30)
[2018-06-07] MEDS: 0.9 % Sodium Chloride 1,000 ML IVC SCH (12:42)
--- NOTE | 2018-06-07 14:32 | Consult Note ---
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 Pt noted that he feels much better today, now that he is sober. Pt noted he felt safe and comfortable to return home to his fathers house and follow up with [facility]. Pt denied any side effects to current medications. Pt noted he felt safe and comfortable on the unit. Pt was in agreement with current treatment plan. Pt noted that he is doing alright today. Pt noted he slept really good last night. Pt noted his appetite is good. Pt rated his depression a 0, on a scale of zero to ten with ten being the worst and zero being none. Pt rate his anxiety a 0, on the same scale. Pt denied any auditory or visiual hallucinations. Pt denied any current thoughts to harm himself or anyone else. The patient was educated primarily by verbal means about his diagnoses and their manifestations in his life. The option for treatment including group individual therapy programming was offered to him and the use of medications with all their potential risks, benefits, and side-effects were discussed with the pt at length. Pt was given the opportunity to ask questions and he participated in the treatment and planning process. Pt felt ready and eager to be discharged home to his fathers, once medically stable. Pt felt he was safe for this disposition. Pt was considered to be able to participate in informed consent and decision-making with respect to medical, legal and financial issues at the time of his discharge. No TD noted, AIMS=0 Tobacco: 1 ppd Alcohol: [address]: meth and crack cocain. Caffeine: 2-3 drinks per day Pt denies any hx of HIV, TBI, Hep C or Seizures. 1.Interval hx 2.Continue current medications 3.Review current labs 4.Pt had an opportunity to ask questions and discuss current treatment plan. 5.Supportive therapy was provided 6.Pt encouraged to consider group or individual therapy 7.Pt was in agreement with treatment plan. 8.Pt was educated on the risks benefits and side effects of current medications. 9. take all medications as prescribed 10 abstain from any alcohol or illict substances. 11. follow up with all sheduled appointments. 12. D/C Pt home to fathers once stable 13. Pt is to follow up with [facility] [place] for outpt substance abuse treatment and mental health follow up. CC: Estrella Marie MD Past Med Surg Social Fam HX - Past Medical History Medical history: hypertension, pulmonary embolus - Past Psychiatric History Psychiatric history: Reports: schizophrenia, previous psychiatric hospitalization Family psychiatric history: Yes Family History of Suicide: None - Past Surgical History Surgical History: appendectomy, arthroscopy - Social History Smoking Status: Current every day smoker Smokeless Tobacco Status: No Alcohol use: occasionally Drug use: cocaine, marijuana, methamphetamine - Family History Father Adopted: No Family Member Ethnicity: Non- Living Status: Still Living Hx Family Cardiac Disorders: No Hx Family Respiratory Disorders: No Hx Family Cancer: No Hx Family GI Disorders: No Hx Family Endocrine Disorder: No Hx Family Neuromuscular Disorders: No Hx Family Neurologic Disorders: No Hx Family HEENT Disorders: No Hx Family Autoimmune Disorders: No Medications & Allergies Benztropine [Cogentin] 1 mg PO BID 30 Days #60 tablet 12/21/17 [Rx] Divalproex (12 HR) [Depakote (12 HR)] 250 mg PO BID 30 Days #60 tablet. [Rx] Naltrexone HCl 50 mg PO DAILY 30 Days #30 tablet 12/21/17 [Rx] Propranolol [Inderal] 20 mg PO BID 30 Days #60 tablet 12/21/17 [Rx] Amantadine [Symmetrel] 100 mg PO BID #60 capsule 05/18/18 [Rx] Nicotine Gum [Nicorette gum] 4 mg BC Q2H PRN #60 gum 05/18/18 [Rx] LORazepam [Ativan] 2 mg PO TID 15 Days #45 tablet 06/01/18 [Rx] Lurasidone [Latuda] 160 mg PO QPM 14 Days #14 tablet 06/01/18 [Rx] 3 Allergy/AdvReac Type Severity Reaction Status Date / Time No Known Allergies Allergy Verified 05/24/18 14:45 Review of Systems Constitutional: Denies: fever, chills, weakness, weight change Eyes: Denies: eye pain, vision change Ears, Nose, Throat: Denies: ear pain, throat pain, dental pain, hearing loss, congestion Cardiovascular: Denies: chest pain, palpitations, dyspnea on exertion Respiratory: Denies: cough, dyspnea, wheezes Gastrointestinal: Denies: abdominal pain, nausea, vomiting, diarrhea, constipation Genitourinary male: Denies: urgency, dysuria, frequency, genital lesions Musculoskeletal: Denies: joint swelling, joint pain Integumentary: Denies: rash, lesions, pruritus Neurological: Reports: confusion (confusion noted but at baseline). Denies: headache, weakness, numbness, memory loss Psychiatric: Reports: auditory hallucinations, visual hallucinations, confusion , other (hx of developmentally delayed) Endocrine: Denies: fatigue, heat or cold intolerance Hematologic/Lymphatic: Denies: easy bruising, lymphadenopathy Allergic/Immunologic: Denies: urticaria, itchy eyes Psychiatry Exam - Constitutional Vitals: Temp Pulse Resp BP Pulse Ox 97.5 F L 82 17 120/85 97 06/06/18 23:10 06/06/18 23:10 06/06/18 23:10 06/06/18 23:10 06/06/18 23:10 General appearance: age & developmentally appropriate, well-groomed, well- nourished - Musculoskeletal Gait: normal Station: relaxed Strength & Tone: normal for patient - Psychiatric Patient Orientation: Yes Person, Yes Time, Yes Place Level of alertness: Alert Behavior: calm, cooperative Psychomotor activity: Normal Eye Contact: Maintains Eye Contact Mood Description: Euthymic/stable Affect description: congruent with mood, full range Speech Volume: Normal Speech pattern: normal rate, normal rhythm, normal tone, fluent, spontaneous Language & Vocabulary: consistent with education, grade school level Thought Process: Linear, Goal Oriented Thought Content: No Suicidal ideation, No Homicidal ideation, No Overt delusions Perceptual Disturbances: No Auditory hallucinations, No Visual hallucinations Attention Span Ability: Capable of Focused Attention Memory Description: Grossly Intact Patient Reliability: Questionable Historian Fund of knowledge: Yes below average Intelligence Estimate: Below Average Judgment: Limited Insight: Partial Results - Labs Labs: Laboratory Last Values WBC 10.2 K/mcL (4.3-11.1) D 06/07/18 06:33 RBC 4.48 M/mcL (4.19-5.50) 06/07/18 06:33 Hgb 13.8 g/dL (12.9-16.9) D 06/07/18 06:33 Hct 40.3 % (37.5-50.1) 06/07/18 06:33 MCV 90.0 fL (83.0-100.0) 06/07/18 06:33 MCH 30.8 pg (28.0-33.3) 06/07/18 06:33 MCHC 34.2 g/dL (31.6-35.5) 06/07/18 06:33 RDW 12.7 % (11.5-14.5) 06/07/18 06:33 Plt Count 237 K/mcL (140-400) 06/07/18 06:33 MPV 11.1 fL (9.4-12.4) 06/07/18 06:33 Immature Gran % 0.3 % (0-4) 06/07/18 06:33 Seg Neutrophils % 60.3 % 06/07/18 06:33 Lymphocytes % 25.5 % 06/07/18 06:33 Monocytes % 12.8 % 06/07/18 06:33 Eosinophils % 0.7 % 06/07/18 06:33 Basophils % 0.4 % 06/07/18 06:33 Neutrophils # 6.2 K/mcL (1.6-8.9) 06/07/18 06:33 Lymphocytes # 2.6 K/mcL (0.6-4.6) 06/07/18 06:33 Monocytes # 1.3 K/mcL (0.0-1.3) 06/07/18 06:33 Eosinophils # 0.1 K/mcL (0.0-0.6) 06/07/18 06:33 Basophils # 0.0 K/mcL (0.0-0.2) 06/07/18 06:33 Sodium 135 mEq/L (136-145) L 06/07/18 06:33 Potassium 3.2 mEq/L (3.5-5.1) L 06/07/18 06:33 Chloride 103 mEq/L (98-107) 06/07/18 06:33 Carbon Dioxide 21 mEq/L (23-29) L 06/07/18 06:33 BUN 22 mg/dL (6-20) H 06/07/18 06:33 Creatinine 1.14 mg/dL (0.70-1.30) 06/07/18 06:33 Est GFR ( Amer) > 60 (> 60) 06/07/18 06:33 Est GFR (Non-Af Amer) > 60 (> 60) 06/07/18 06:33 BUN/Creatinine Ratio 19 (6-26) 06/07/18 06:33 Glucose 118 mg/dL (70-105) H 06/07/18 06:33 Calculated Osmolality 284 (280-300) 06/07/18 06:33 Calcium 8.6 mg/dL (8.6-10.3) 06/07/18 06:33 Total Bilirubin 1.8 mg/dL (0.3-1.0) H 06/07/18 06:33 AST 28 Units/L (13-39) 06/07/18 06:33 ALT 32 Units/L (7-52) 06/07/18 06:33 Alkaline Phosphatase 78 Units/L (34-104) 06/07/18 06:33 Creatine Kinase 509 Units/L (30-223) H 06/07/18 06:33 Troponin I 0.03 ng/mL (< 0.04) 06/06/18 15:33 Serum Total Protein 6.5 g/dL (6.4-8.9) 06/07/18 06:33 Albumin 3.9 g/dL (3.5-5.7) 06/07/18 06:33 Globulin 2.6 g/dL (2.4-3.5) 06/07/18 06:33 Albumin/Globulin Ratio 1.5 (1.1-2.2) 06/07/18 06:33 Urine Color Dark Yellow (Yellow) 06/06/18 14:28 Urine Clarity Clear (Clear) 06/06/18 14:28 Urine pH 5.0 pH Units (5.0-8.0) 06/06/18 14:28 Ur Specific [place] 1.030 (1.010-1.025) H 06/06/18 14:28 Urine Protein 30 mg/dL (Neg-Trace) H 06/06/18 14:28 Urine Glucose (UA) Normal mg/dL (Normal) 06/06/18 14:28 Urine Ketones Trace mg/dL (Negative) H 06/06/18 14:28 Urine Blood Negative (Negative) 06/06/18 14:28 Urine Nitrite Negative (Negative) 06/06/18 14:28 Urine Bilirubin Small (Negative) H 06/06/18 14:28 Urine Urobilinogen Normal mg/dL (Normal) 06/06/18 14:28 Ur Leukocyte Esterase Trace (Negative) H 06/06/18 14:28 Urine Microscopic RBC 3-5 per hpf (0-3) H 06/06/18 14:28 Urine Microscopic WBC 0-3 per hpf (0-3) 06/06/18 14:28 Ur Squamous Epith Cells Many per lpf (None-Few) H 06/06/18 14:28 Urine Bacteria None Seen per hpf (None-Few) 06/06/18 14:28 Hyaline Casts Few per lpf (None-Few) 06/06/18 14:28 Salicylates < 2.5 mg/dL (15.0-30.0) L 06/06/18 15:33 Urine Opiates Screen Negative ng/mL (Ucfvbl=209) 06/06/18 14:28 Acetaminophen < 10 mcg/mL (10-20) L 06/06/18 15:33 Ur Barbiturates Screen Negative ng/mL (Mmlnrq=781) 06/06/18 14:28 Ur Phencyclidine Scrn Negative ng/mL (Cutoff=25) 06/06/18 14:28 Ur Amphetamines Screen Positive ng/mL (Qztlrt=3125) H 06/06/18 14:28 U Benzodiazepines Scrn Negative ng/mL (Jgaemc=769) 06/06/18 14:28 Urine Cocaine Screen Positive ng/mL (Cutoff= 300) H 06/06/18 14:28 U Marijuana (THC) Screen Negative ng/mL (Cutoff = 50) 06/06/18 14:28 Ur Drug Screen Interp See Below 06/06/18 14:28 Ethyl Alcohol < 10 mg/dL (Less than 10) 06/06/18 15:33 Consult Discharge Plan - Plan Additional Instructions: 1. take all medications as prescribed 2 abstain from any alcohol or illict substances. 3. follow up with all scheduled appointments. 4. D/C Pt home to fathers once medically stable, (confirm with father) 5. Pt is to follow up with [facility] for outpt substance abuse treatment and mental health follow up. 6. Continue Pt on 1:1 until discharge
[2018-06-07] MEDS: *HR* LORazepam 1 MG TABLET PO SCH ×2 (17:20→21:12)
[2018-06-07] MEDS ORDERED: Potassium Chloride Elixir 20 MEQ/15 ML UDC PO ONE (17:30)
[2018-06-07] MEDS ORDERED: Potassium Chloride Elixir 20 MEQ/15 ML UDC PO SCH (17:30)
[2018-06-07] MEDS: Divalproex (12 HR) 250 MG TABLET PO SCH (21:11)
[2018-06-08] MEDS: 0.9 % Sodium Chloride 1,000 ML IVC SCH ×5 (02:40→18:01)
[2018-06-08 05:52] LABS: Basophils % 0.5 %; Eosinophils # 0.1 K/mcL (0.0-0.6); Hematocrit 38.5 % (37.5-50.1); Immature Granulocytes % 0.3 % (0-4); Lymphocytes # 2.4 K/mcL (0.6-4.6); Lymphocytes % 30.5 %; Mean Corpuscular HGB Conc 33.8 g/dL (31.6-35.5); Mean Corpuscular Hemoglobin 31.2 pg (28.0-33.3); Mean Corpuscular Volume 92.3 fL (83.0-100.0); Mean Platelet Volume 11.5 fL (9.4-12.4); Monocytes % 12.5 %; Neutrophils # 4.4 K/mcL (1.6-8.9); Platelet Count 231 K/mcL (140-400); Red Blood Count 4.17 M/mcL (4.19-5.50); Red Cell Distribution Width 12.6 % (11.5-14.5); Segmented Neutrophils % 55.2 %
[2018-06-08 06:41] LABS: BUN/Creatinine Ratio 14 (6-26); Blood Urea Nitrogen 12 mg/dL (6-20); Calcium 8.5 mg/dL (8.6-10.3); Carbon Dioxide 26 mEq/L (23-29); Chloride 108 mEq/L (98-107); Glucose 99 mg/dL (70-105); Magnesium 1.9 mg/dL (1.6-2.6); Osmolality,Calculated 288 (280-300); Phosphorous 2.7 mg/dL (2.7-4.5); Potassium 4.1 mEq/L (3.5-5.1); Sodium 139 mEq/L (136-145); eGFR For Non-African Americans > 60 (> 60)
[2018-06-08] MEDS: Divalproex (12 HR) 250 MG TABLET PO SCH ×2 (08:51→19:45)
[2018-06-08] MEDS: NALTREXONE HCL 50 MG TABLET PO SCH (08:51)
[2018-06-08] MEDS: *HR* LORazepam 1 MG TABLET PO SCH ×3 (08:51→19:45)
--- NOTE | 2018-06-08 10:59 | Internal Med Progress Note ---
Hospitalist Progress Note - Encounter Date of Encounter: 06/08/18 Time of Encounter: 10:50 - Exam Vitals: Temp Pulse Resp BP Pulse Ox 97.9 F 80 16 155/78 94 06/08/18 10:00 06/08/18 10:00 06/08/18 10:00 06/08/18 10:00 06/08/18 10:00 Exam: General: Lying in bed asleep; difficult to arouse. Skin:Normal color, no rash, no lesions. HEENT:EOM, pupils equal, round and reactive. Cardiovascular:Normal S1 & S2, no rubs, murmurs or gallops. No JVD. Pulse regular. Lungs:Normal breath sounds, no wheezes or crackles. Abdomen:Soft, non-tender, no rigidity. Extremities:No deformity, no edema or tenderness, no joint swelling or clubbing. Neurological: Somnolent, difficult to arouse pushing my hand away upon examination. Pulses:Carotid and radial pulses normal +2. Rest of the physical exam is non contributory - Assessment and Plan (1) Altered mental status, unspecified Current Visit: Yes Status: Acute Assessment and Plan: Altered mental status with acute metabolic encephalopathy likely secondary to drug overdose with meth and cocaine and schizophrenia likely secondary to methamphetamine and cocaine abuse given positive urine toxicology. Has improved with IV fluids and supportive care for now. He was also seen by psych who have noted frequent admissions for drug abuse and determined he can be discharged once medical stable. Mental status has improved, however his CPK continues to trend up. Continue IV fluids and monitor CPK daily (2) Rhabdomyolysis Current Visit: Yes Status: Acute Assessment and Plan: Possible mild rhabdomyolysis given mildly elevated creatinine phosphokinase. CPK has been trending up daily. Was 509 yesterday and trended up to 837 today. Increase IV fluids. Daily CPK (3) YOVANI (acute kidney injury) Current Visit: Yes Status: Acute Assessment and Plan: Acute kidney injury likely prerenal which is now resolved after fluid support. Resolved with Iv fluid hydration. We will continue hydration. (4) Drug abuse Current Visit: Yes Status: Acute Assessment and Plan: Urine toxicology positive for methamphetamines and cocaine. - Time Spent with Patient Total time spent is greater than 50% in coordination of care (as documented) at patient's floor/unit and/or counseling patient: Internal Medicine: Result - Labs CBC & Chem 7: 06/08/18 04:26 06/08/18 04:26 Labs: Short CBC 06/08/18 Range/Units 04:26 WBC 7.9 (4.3-11.1) K/mcL Hgb 13.0 (12.9-16.9) g/dL Hct 38.5 (37.5-50.1) % Plt Count 231 (140-400) K/mcL Neutrophils # 4.4 (1.6-8.9) K/mcL BMP 06/08/18 04:26 Sodium 139 Potassium 4.1 D Chloride 108 H Carbon Dioxide 26 BUN 12 Creatinine 0.87 Glucose 99 Calcium 8.5 L Consult Discharge Plan - Plan Additional Instructions: 1. take all medications as prescribed 2 abstain from any alcohol or illict substances. 3. follow up with all scheduled appointments. 4. D/C Pt home to fathers once medically stable, (confirm with father) 5. Pt is to follow up with [facility] for outpt substance abuse treatment and mental health follow up. 6. Continue Pt on 1:1 until discharge Referrals: NONE,PCP [Primary Care Provider] - (1) Altered mental status, unspecified Qualifiers: Altered mental status type: unspecified Qualified Code(s): R41.82 - Altered mental status, unspecified (2) Rhabdomyolysis Qualifiers: Rhabdomyolysis type: non-traumatic Qualified Code(s): M62.82 - Rhabdomyolysis
[2018-06-08 11:19] LABS: Creatine Kinase 837 Units/L (30-223)
--- NOTE | 2018-06-08 12:05 | Discharge Summary ---
Orders not resulted at time of discharge: Pending orders 06/09/18 04:00 Basic Metabolic Panel AM 0400 CBC [Complete Blood Count] [HEME] AM 0400 Magnesium AM 0400 Phosphorous AM 0400 06/10/18 04:00 Basic Metabolic Panel AM 0400 CBC [Complete Blood Count] [HEME] AM 0400 Magnesium AM 0400 Phosphorous AM 0400 06/11/18 04:00 Basic Metabolic Panel AM 0400 CBC [Complete Blood Count] [HEME] AM 0400 Magnesium AM 0400 Phosphorous AM 0400 06/12/18 04:00 Basic Metabolic Panel AM 0400 CBC [Complete Blood Count] [HEME] AM 0400 Magnesium AM 0400 Phosphorous AM 0400 06/13/18 04:00 Basic Metabolic Panel AM 0400 CBC [Complete Blood Count] [HEME] AM 0400 Magnesium AM 0400 Phosphorous AM 0400 Date of Encounter: 06/08/18 Time of Encounter: 12:00 - Discharge Diagnosis (1) Altered mental status, unspecified Priority: Primary Status: Acute Qualifiers: Altered mental status type: unspecified Qualified Code(s): R41.82 - Altered mental status, unspecified (2) Rhabdomyolysis Status: Acute Qualifiers: Rhabdomyolysis type: non-traumatic Qualified Code(s): M62.82 - Rhabdomyolysis (3) YOVANI (acute kidney injury) Status: Acute (4) Drug abuse Status: Acute Hospital course: Mr. Miller is a 37 year old male - Time Spent with Patient Total time spent providing and/or coordinating discharge services: - Discharge Medications Home Medications: Benztropine [Cogentin] 1 mg PO BID 30 Days #60 tablet 12/21/17 [Rx] Divalproex (12 HR) [Depakote (12 HR)] 250 mg PO BID 30 Days #60 tablet [Rx] Naltrexone HCl 50 mg PO DAILY 30 Days #30 tablet 12/21/17 [Rx] Propranolol [Inderal] 20 mg PO BID 30 Days #60 tablet 12/21/17 [Rx] Amantadine [Symmetrel] 100 mg PO BID #60 capsule 05/18/18 [Rx] Nicotine Gum [Nicorette gum] 4 mg BC Q2H PRN #60 gum 05/18/18 [Rx] LORazepam [Ativan] 2 mg PO TID 15 Days #45 tablet 06/01/18 [Rx] Lurasidone [Latuda] 160 mg PO QPM 14 Days #14 tablet 06/01/18 [Rx] Allergies/Adverse Reactions: 3 Allergy/AdvReac Type Severity Reaction Status Date / Time No Known Allergies Allergy Verified 05/24/18 14:45 Date of admission: 06/06/18 18:51 Primary care physician: PCP NONE Consults: 06/07/18 07:47 Consult to Psychiatry [CONS] Routine Consulting Provider: Psychiatry Vandana Reason consult: Altered mental status Other reason and/or additional details: Concern for Methamphetamine overdose 06/07/18 16:34 Consult to Sound Ranging Crewmember [CONS] Routine Reason for SW Consult: PATIENT FROM [facility]. LEFT MESSAGE FOR THEIR DIRECTOR. SHE IS TO DECIDE IF PATIENT CAN RETURN. PATIENT IS NOT GOING TO WHEN D/C. FATHER REFUSES TO TAKE PATIENT IN. NEEDS SKILLED NURSING PSYCH PLACEMENT. - Constitutional Vitals: Temp Pulse Resp BP Pulse Ox 97.9 F 80 16 155/78 94 06/08/18 10:00 06/08/18 10:00 06/08/18 10:00 06/08/18 10:00 06/08/18 10:00 Exam: General: Lying in bed asleep; difficult to arouse. Skin:Normal color, no rash, no lesions. HEENT:EOM, pupils equal, round and reactive. Cardiovascular:Normal S1 & S2, no rubs, murmurs or gallops. No JVD. Pulse regular. Lungs:Normal breath sounds, no wheezes or crackles. Abdomen:Soft, non-tender, no rigidity. Extremities:No deformity, no edema or tenderness, no joint swelling or clubbing. Neurological: Somnolent, difficult to arouse pushing my hand away upon examination. Pulses:Carotid and radial pulses normal +2. Rest of the physical exam is non contributory - Patient Status Condition: Fair - Discharge Instructions Follow Up With: NONE,PCP [Primary Care Provider] - Forms: ED Satisfaction Letter Additional Instructions: 1. take all medications as prescribed 2 abstain from any alcohol or illict substances. 3. follow up with all scheduled appointments. 4. D/C Pt home to fathers once medically stable, (confirm with father) 5. Pt is to follow up with rajani FRANCISCO for outpt substance abuse treatment and mental health follow up. 6. Continue Pt on 1:1 until discharge
[2018-06-08] MEDS: *HR* Heparin 5,000 UNIT/ML VIAL SQ SCH (18:00)
[2018-06-09] MEDS: 0.9 % Sodium Chloride 1,000 ML IVC SCH ×2 (04:22→05:42)
[2018-06-09 04:52] LABS: Basophils % 0.3 %; Eosinophils # 0.1 K/mcL (0.0-0.6); Eosinophils % 1.6 %; Hemoglobin 12.3 g/dL (12.9-16.9); Immature Granulocytes % 0.4 % (0-4); Lymphocytes # 2.5 K/mcL (0.6-4.6); Lymphocytes % 32.2 %; Mean Corpuscular HGB Conc 34.2 g/dL (31.6-35.5); Mean Corpuscular Volume 90.7 fL (83.0-100.0); Mean Platelet Volume 11.3 fL (9.4-12.4); Monocytes # 0.9 K/mcL (0.0-1.3); Monocytes % 11.5 %; Neutrophils # 4.1 K/mcL (1.6-8.9); Platelet Count 215 K/mcL (140-400); Red Blood Count 3.97 M/mcL (4.19-5.50); Red Cell Distribution Width 12.3 % (11.5-14.5)
[2018-06-09] MEDS: *HR* Heparin 5,000 UNIT/ML VIAL SQ SCH (05:43)
[2018-06-09 07:53] VITALS: BP 167/83
[2018-06-09 08:14] LABS: BUN/Creatinine Ratio 9 (6-26); Blood Urea Nitrogen 7 mg/dL (6-20); Calcium 8.4 mg/dL (8.6-10.3); Carbon Dioxide 25 mEq/L (23-29); Chloride 109 mEq/L (98-107); Glucose 96 mg/dL (70-105); Magnesium 1.9 mg/dL (1.6-2.6); Osmolality,Calculated 288 (280-300); Phosphorous 3.1 mg/dL (2.7-4.5); Potassium 3.7 mEq/L (3.5-5.1); Sodium 140 mEq/L (136-145); eGFR For Non-African Americans > 60 (> 60)
[2018-06-09] MEDS: Divalproex (12 HR) 250 MG TABLET PO SCH (10:05)
[2018-06-09] MEDS: *HR* LORazepam 1 MG TABLET PO SCH (10:05)
--- NOTE | 2018-06-09 11:50 | Discharge Summary ---
- NOTES TO OUTPATIENT PROVIDER Notes to Outpatient Provider: Recommend routine hospital follow-up within one week Orders not resulted at time of discharge: Pending orders 06/10/18 04:00 Basic Metabolic Panel AM 0400 CBC [Complete Blood Count] [HEME] AM 0400 Magnesium AM 0400 Phosphorous AM 0400 06/11/18 04:00 Basic Metabolic Panel AM 0400 CBC [Complete Blood Count] [HEME] AM 0400 Magnesium AM 0400 Phosphorous AM 0400 06/12/18 04:00 Basic Metabolic Panel AM 0400 CBC [Complete Blood Count] [HEME] AM 0400 Magnesium AM 0400 Phosphorous AM 0400 06/13/18 04:00 Basic Metabolic Panel AM 0400 CBC [Complete Blood Count] [HEME] AM 0400 Magnesium AM 0400 Phosphorous AM 0400 Date of Encounter: 06/09/18 Time of Encounter: 11:46 - Discharge Diagnosis (1) YOVANI (acute kidney injury) Priority: Primary Status: Acute (2) Drug abuse Priority: Primary Status: Acute (3) Rhabdomyolysis Priority: Primary Status: Acute Qualifiers: Rhabdomyolysis type: non-traumatic Qualified Code(s): M62.82 - Rhabdomyolysis (4) Altered mental status, unspecified Priority: Primary Status: Acute Qualifiers: Altered mental status type: unspecified Qualified Code(s): R41.82 - Altered mental status, unspecified Hospital course: Mr. Miller is a 37 year old male with known mental health history including paranoid schizophrenia with periods of catatonia presented to [facility] on 06/06/2018 from the [facility] with altered mental status. He was placed in observation for further workup and treatment. He was found to be acute metabolic encephalopathy likely secondary to amphetamine and cocaine use. He was evaluated by psychiatry who did not feel patient was a harm to self or others and no need for inpatient psychiatric hospitalization once medically stable. He was also found to be in acute kidney injury which improved with IV fluids. His creatinine kinase was elevated at 837 and trended down to 579 with IV fluids. Mentation improved to baseline. He was advised on illegal/ recreational drug cessation which is unlikely. Discussed case at length with social worker psychiatric and plan for patient to return to the [facility] at time of discharge. He was discharged in stable condition with outpatient follow -up. Discharge discussed with: patient (Seen and examined at bedside. Patient is known to me from previous admission. He is alert and oriented says he wants to go home today. He is aware plan to return to the [facility] for further outpatient drug/alcohol rehabilitation.) - Time Spent with Patient Total time spent providing and/or coordinating discharge services: - Discharge Medications Home Medications: Benztropine [Cogentin] 1 mg PO BID 30 Days #60 tablet 12/21/17 [Rx] Divalproex (12 HR) [Depakote (12 HR)] 250 mg PO BID 30 Days #60 tablet. [Rx] Naltrexone HCl 50 mg PO DAILY 30 Days #30 tablet 12/21/17 [Rx] Propranolol [Inderal] 20 mg PO BID 30 Days #60 tablet 12/21/17 [Rx] Amantadine [Symmetrel] 100 mg PO BID #60 capsule 05/18/18 [Rx] Nicotine Gum [Nicorette gum] 4 mg BC Q2H PRN #60 gum 05/18/18 [Rx] LORazepam [Ativan] 2 mg PO TID 15 Days #45 tablet 06/01/18 [Rx] Lurasidone [Latuda] 160 mg PO QPM 14 Days #14 tablet 06/01/18 [Rx] Allergies/Adverse Reactions: 3 Allergy/AdvReac Type Severity Reaction Status Date / Time No Known Allergies Allergy Verified 05/24/18 14:45 Date of admission: 06/06/18 18:51 Primary care physician: PCP NONE Consults: 06/07/18 07:47 Consult to Psychiatry [CONS] Routine Consulting Provider: Psychiatry Aubrey Reason consult: Altered mental status Other reason and/or additional details: Concern for Methamphetamine overdose 06/07/18 16:34 Consult to Internet Site Designer [CONS] Routine Reason for SW Consult: PATIENT FROM [facility]. LEFT MESSAGE FOR THEIR DIRECTOR. SHE IS TO DECIDE IF PATIENT CAN RETURN. PATIENT IS NOT GOING TO WHEN D/C. FATHER REFUSES TO TAKE PATIENT IN. NEEDS HOSE SPRAYER PSYCH PLACEMENT. Discharging clinician: Debra Shay Anticipated date of discharge: 06/09/18 - Constitutional Vitals: Temp Pulse Resp BP Pulse Ox 98.2 F 62 16 167/83 97 06/09/18 07:49 06/09/18 07:49 06/09/18 07:49 06/09/18 07:49 06/09/18 07:49 General appearance: Present: disheveled, A&O X 3, morbidly obese, pleasant Exam: . - Head Head exam: Present: atraumatic, normocephalic - Eye Eye exam: Present: PERRL, conjuntiva pink, sclera anicteric Pupils: Present: PERRL - Expanded ENT Exam Teeth exam: Present: dental caries - Neck Neck exam general surgery: Present: supple, trachea midline. Absent: lymphadenopathy - Respiratory Respiratory exam: Present: CTAB. Absent: accessory muscle use, rales, rhonchi, wheezes - Cardiovascular Cardiovascular exam: Present: RRR, +S1, +S2. Absent: diastolic murmur, gallop, rubs, systolic murmur - GI/Abdominal GI/Abdominal exam: Present: normal bowel sounds, soft, no peritoneal signs. Absent: distended, tenderness - Extremities Exam Extremities exam: Present: warm, radial pulses palpable and symmetrical. Absent : calf tenderness, cyanotic, pedal edema - Neurological Exam Neurological exam: Present: CN II-XII intact, oriented X3, no focal deficits. Absent: pronater drift, facial droop, speech deficit - Skin Skin exam: Present: dry, intact - Patient Status Disposition: Home, Self-Care Condition: Good Functional capacity at discharge: independent ambulation Overall status at discharge: patient is back to baseline - Discharge Instructions Instructions: Acute Kidney Injury (DC), Cocaine Abuse (DC), Methamphetamine Abuse (DC) Follow Up With: NONE,PCP [Primary Care Provider] - (Please call [phone] to find a physician accepting patient) Jacky Tavares DO [Partnered Physician] - (Please call for follow- up appointment within 1 week) Forms: ED Satisfaction Letter Additional Instructions: 1. take all medications as prescribed 2 abstain from any alcohol or illict substances. 3. follow up with all scheduled appointments. 4. D/C Pt home to fathers once medically stable, (confirm with father) 5. Pt is to follow up with rajani FRANCISCO for outpt substance abuse treatment and mental health follow up. 6. Continue Pt on 1:1 until discharge - Diet and Activity Activity: increase activity as tolerated Diet: advance to your usual diet
[2018-06-09] MEDS: NALTREXONE HCL 50 MG TABLET PO SCH (14:32)
--- NOTE | 2018-06-09 23:37 | Electrocardiograph Report ---
[place] [id number] Test Date: 2018-06-06 Pat Name: Gabbi Miller Department: EXAM3 Room: 3B45 Gender: M Resource Coordinator: : 1980 Requested By: Roque Dominique Order Number: [id number] Reading MD: Angi Raymundo Measurements Intervals [place] Rate: 125 P: 36 [place]: 125 QRS: 58 QRSD: 90 T: QT: 326 QTc: 471 Interpretive Statements Sinus tachycardia Nonspecific T abnrm, anterolateral leads Borderline prolonged QT interval Electronically Signed On 06-09-2018 23:36:31 EDT by Angi Raymundo
== END 2018-06-09 14:42 | disposition home or self-care (01) ==
LOC: EMEROOARM 13:57 → 3BNU 13:57
PROVIDERS: ADMIT Student in an Organized Health Care Education/Training Program; ATTEND Student in an Organized Health Care Education/Training Program

== ENCOUNTER 2018-08-02 16:58 | Inpatient (IN) ==
--- NOTE | 2018-08-02 17:40 | Emergency Department Note ---
Disposition Clinical Impression: Auditory hallucinations Schizophrenia Qualifiers: Schizophrenia type: other Qualified Code(s): F20.89 - Other schizophrenia Disposition: Admitted As Inpatient Condition: Fair Time of Disposition: 18:40 General Adult HPI - General Chief complaint: ED Psychiatric Symptoms Stated complaint: hallucinations Time Seen by Provider: 08/02/18 17:04 Source: patient Mode of arrival: ambulatory Limitations: no limitations Nursing Notes Reviewed: Yes Vital Signs Reviewed: Yes - History of Present Illness HPI Narrative: Patient is a 38 year old male past medical history of paranoid schizophrenia presents to the emergency department for auditory hallucinations. The patient currently stays at a nursing home house and states that he sees a tele-psychiatrist. He reports that over the past couple of days he has noticed voices in his head that are telling him to quit drinking and quit smoking a become a good condition. He states that the voices are also threatening him saying that if he sits down and will kill him. He denies any intentions of harming other people or thoughts of harming other people or himself. Denies any visual hallucinations. Denies any drug use or alcohol use, he admits to half pack per day smoking. Pain Scale: 0 - Related Data Previous Rx's Medication Instructions Recorded Benztropine [Cogentin] 1 mg PO BID 30 Days #60 tablet 12/21/17 Divalproex (12 HR) [Depakote (12 250 mg PO BID 30 Days #60 tablet.dr 12/21/17 HR)] Naltrexone HCl 50 mg PO DAILY 30 Days #30 tablet 12/21/17 Propranolol [Inderal] 20 mg PO BID 30 Days #60 tablet 12/21/17 Amantadine [Symmetrel] 100 mg PO BID #60 capsule 05/18/18 LORazepam [Ativan] 2 mg PO TID 15 Days #45 tablet 06/01/18 Lurasidone [Latuda] 160 mg PO QPM 14 Days #14 tablet 06/01/18 Allergies Allergy/AdvReac Type Severity Reaction Status Date / Time No Known Allergies Allergy Verified 07/09/18 13:18 All systems ED: reviewed and negative except as stated. Review of Systems: As Per HPI Psychiatric: Reports: auditory hallucinations. Denies: suicidal thoughts, homicidal thoughts, visual hallucinations Past Medical History - Past Medical History Attestation: Yes The following information was validated with the patient. Medical history: Reports: hypertension, pulmonary embolus Surgical history: Reports: appendectomy, arthroscopy Psychiatric history: Reports: anxiety, schizophrenia - Social History Smoking Status: Current every day smoker Smokeless Tobacco Status: No Alcohol use: Reports: occasionally Drug use: Reports: cocaine, marijuana, methamphetamine Physical Exam CONSTITUTIONAL: Alert and oriented X3, well-nourished, well appearing, in no apparent distress. Sitting up in bed watching TV. HEAD: Normocephalic; atraumatic. EYES: PERRL, no scleral icterus. NOSE: The nose is normal in appearance without rhinorrhea RESP: Normal chest excursion with respiration; breath sounds clear and equal bilaterally; no wheezes, rhonchi, or rales CARD: Regular rhythm, without murmurs, rub or gallop ABD: Non-distended; non-tender, soft,without rigidity, rebound or guarding SKIN: Normal for age and race; warm and dry; no apparent lesionsPSYCH: Admits to auditory hallucinations. Denies SI/HI. Flat affect. - General General appearance: alert, in no apparent distress Course Course Narrative: Plan at this time is for the patient to undergo a medical clearance for evaluation by the 1A team. Does appear that he has a past medical history of symptoms similar to this as well as admissions to [facility]. Patient will be pink-slipped due to auditory hallucinations requesting he harm himself if sitting down. - Reevaluation(s) Reevaluation #1: Patient accepted to the 1A team Time: 18:39 Vital Signs Temperature 98.2 F 08/02/18 17:05 Pulse Rate 94 08/02/18 17:05 Respiratory Rate 15 08/02/18 17:05 Blood Pressure 126/78 08/02/18 17:05 O2 Sat by Pulse Oximetry 98 08/02/18 17:05 Temperature 98.2 F 08/02/18 17:05 Pulse Rate 94 08/02/18 17:05 Respiratory Rate 15 08/02/18 17:05 Blood Pressure 126/78 08/02/18 17:05 O2 Sat by Pulse Oximetry 98 08/02/18 17:05 Oxygen Delivery Oxygen Delivery Room Air Medical Decision Making - Medical Records Medical records reviewed: Yes I reviewed the patient's medical records. - Lab Data Lab results reviewed: Yes I reviewed the patient's lab results. Result diagrams: 08/02/18 17:36 10/30/18 17:36 Lab Results 08/02/18 08/02/18 08/02/18 Range/Units 17:20 17:20 17:36 WBC 9.2 (4.3-11.1) K/mcL RBC 4.80 (4.19-5.50) M/mcL Hgb 14.9 (12.9-16.9) g/dL Hct 43.8 (37.5-50.1) % MCV 91.3 (83.0-100.0) fL MCH 31.0 (28.0-33.3) pg MCHC 34.0 (31.6-35.5) g/dL RDW 12.4 (11.5-14.5) % Plt Count 311 (140-400) K/mcL MPV 10.6 (9.4-12.4) fL Immature Gran % 0.3 (0-4) % Seg Neutrophils % 53.6 % Lymphocytes % 35.0 % Monocytes % 8.2 % Eosinophils % 2.4 % Basophils % 0.5 % Neutrophils # 4.9 (1.6-8.9) K/mcL Lymphocytes # 3.2 (0.6-4.6) K/mcL Monocytes # 0.8 (0.0-1.3) K/mcL Eosinophils # 0.2 (0.0-0.6) K/mcL Basophils # 0.1 (0.0-0.2) K/mcL Sodium (136-145) mEq/L Potassium (3.5-5.1) mEq/L Chloride (98-107) mEq/L Carbon Dioxide (23-29) mEq/L BUN (6-20) mg/dL Creatinine (0.70-1.30) mg/dL Est GFR ( Amer) (> 60) Est GFR (Non-Af Amer) (> 60) BUN/Creatinine Ratio (6-26) Glucose (70-105) mg/dL Calculated Osmolality (280-300) Calcium (8.6-10.3) mg/dL Urine Color Yellow (Yellow) Urine Clarity Clear (Clear) Urine pH 7.0 (5.0-8.0) pH Units Ur Specific [place] 1.010 (1.010-1.025) Urine Protein Negative (Neg-Trace) mg/dL Urine Glucose (UA) Normal (Normal) mg/dL Urine Ketones Negative (Negative) mg/dL Urine Blood Negative (Negative) Urine Nitrite Negative (Negative) Urine Bilirubin Negative (Negative) Urine Urobilinogen Normal (Normal) mg/dL Ur Leukocyte Esterase Negative (Negative) Salicylates (15.0-30.0) mg/dL Urine Opiates Screen Negative (Usqcsh=432) ng/mL Acetaminophen (10-20) mcg/mL Ur Barbiturates Screen Negative (Xabpvm=842) ng/mL Valproic Acid (50-100) mcg/mL Ur Phencyclidine Scrn Negative (Cutoff=25) ng/mL Ur Amphetamines Screen Negative (Ljyuhf=1138) ng/mL U Benzodiazepines Scrn Negative (Kakyhx=192) ng/mL Urine Cocaine Screen Negative (Cutoff= 300) ng/mL U Marijuana (THC) Screen Negative (Cutoff = 50) ng/mL Ur Drug Screen Interp See Below Ethyl Alcohol (Less than 10) mg/dL 08/02/18 Range/Units 17:36 WBC (4.3-11.1) K/mcL RBC (4.19-5.50) M/mcL Hgb (12.9-16.9) g/dL Hct (37.5-50.1) % MCV (83.0-100.0) fL MCH (28.0-33.3) pg MCHC (31.6-35.5) g/dL RDW (11.5-14.5) % Plt Count (140-400) K/mcL MPV (9.4-12.4) fL Immature Gran % (0-4) % Seg Neutrophils % % Lymphocytes % % Monocytes % % Eosinophils % % Basophils % % Neutrophils # (1.6-8.9) K/mcL Lymphocytes # (0.6-4.6) K/mcL Monocytes # (0.0-1.3) K/mcL Eosinophils # (0.0-0.6) K/mcL Basophils # (0.0-0.2) K/mcL Sodium 138 (136-145) mEq/L Potassium 4.0 (3.5-5.1) mEq/L Chloride 104 (98-107) mEq/L Carbon Dioxide 26 (23-29) mEq/L BUN 16 (6-20) mg/dL Creatinine 1.14 (0.70-1.30) mg/dL Est GFR ( Amer) > 60 (> 60) Est GFR (Non-Af Amer) > 60 (> 60) BUN/Creatinine Ratio 14 (6-26) Glucose 105 (70-105) mg/dL Calculated Osmolality 288 (280-300) Calcium 9.7 (8.6-10.3) mg/dL Urine Color (Yellow) Urine Clarity (Clear) Urine pH (5.0-8.0) pH Units Ur Specific [place] (1.010-1.025) Urine Protein (Neg-Trace) mg/dL Urine Glucose (UA) (Normal) mg/dL Urine Ketones (Negative) mg/dL Urine Blood (Negative) Urine Nitrite (Negative) Urine Bilirubin (Negative) Urine Urobilinogen (Normal) mg/dL Ur Leukocyte Esterase (Negative) Salicylates < 2.5 L (15.0-30.0) mg/dL Urine Opiates Screen (Fuixtd=453) ng/mL Acetaminophen < 10 L (10-20) mcg/mL Ur Barbiturates Screen (Wxiguu=819) ng/mL Valproic Acid 23 L (50-100) mcg/mL Ur Phencyclidine Scrn (Cutoff=25) ng/mL Ur Amphetamines Screen (Zneqmg=2484) ng/mL U Benzodiazepines Scrn (Jwgxpm=090) ng/mL Urine Cocaine Screen (Cutoff= 300) ng/mL U Marijuana (THC) Screen (Cutoff = 50) ng/mL Ur Drug Screen Interp Ethyl Alcohol < 10 (Less than 10) mg/dL
[2018-08-02 17:46] LABS: Bilirubin,Urine Negative (Negative); Blood,Urine Negative (Negative); Clarity,Urine Clear (Clear); Color,Urine Yellow (Yellow); Glucose,Urine (UA) Normal (Normal); Ketones,Urine Negative (Negative); Leukocyte Esterase,Urine Negative (Negative); Nitrite,Urine Negative (Negative); Protein,Urine Negative (Neg-Trace); Urobilinogen,Urine Normal (Normal)
--- NOTE | 2018-08-02 17:46 | Emergency Department Note ---
Disposition Clinical Impression: Auditory hallucinations, Schizophrenia Disposition: Admitted As Inpatient Condition: Fair Forms: ED Satisfaction Letter Time of Disposition: 18:35 General Adult HPI - General Chief complaint: ED Psychiatric Symptoms Stated complaint: hallucinations Time Seen by Provider: 08/02/18 17:04 Source: patient Mode of arrival: ambulatory Limitations: no limitations Nursing Notes Reviewed: Yes Vital Signs Reviewed: Yes - History of Present Illness Pain Scale: 0 - Related Data Previous Rx's Medication Instructions Recorded Benztropine [Cogentin] 1 mg PO BID 30 Days #60 tablet 12/21/17 Divalproex (12 HR) [Depakote (12 250 mg PO BID 30 Days #60 tablet.dr 12/21/17 HR)] Naltrexone HCl 50 mg PO DAILY 30 Days #30 tablet 12/21/17 Propranolol [Inderal] 20 mg PO BID 30 Days #60 tablet 12/21/17 Amantadine [Symmetrel] 100 mg PO BID #60 capsule 05/18/18 Nicotine Gum [Nicorette gum] 4 mg BC Q2H PRN #60 gum 05/18/18 LORazepam [Ativan] 2 mg PO TID 15 Days #45 tablet 06/01/18 Lurasidone [Latuda] 160 mg PO QPM 14 Days #14 tablet 06/01/18 Allergies Allergy/AdvReac Type Severity Reaction Status Date / Time No Known Allergies Allergy Verified 07/09/18 13:18 Psychiatric: Reports: auditory hallucinations. Denies: suicidal thoughts, homicidal thoughts, visual hallucinations Past Medical History - Past Medical History Medical history: Reports: hypertension, pulmonary embolus Surgical history: Reports: appendectomy, arthroscopy Psychiatric history: Reports: anxiety, schizophrenia - Social History Smoking Status: Current every day smoker Smokeless Tobacco Status: No Alcohol use: Reports: occasionally Drug use: Reports: cocaine, marijuana, methamphetamine Physical Exam - General Limitations: no limitations General appearance: alert, in no apparent distress Course Vital Signs Temperature 98.2 F 08/02/18 17:05 Pulse Rate 94 08/02/18 17:05 Respiratory Rate 15 08/02/18 17:05 Blood Pressure 126/78 08/02/18 17:05 O2 Sat by Pulse Oximetry 98 08/02/18 17:05 Temperature 98.2 F 08/02/18 17:05 Pulse Rate 94 08/02/18 17:05 Respiratory Rate 15 08/02/18 17:05 Blood Pressure 126/78 1030/18 17:05 O2 Sat by Pulse Oximetry 98 08/02/18 17:05 Oxygen Delivery Oxygen Delivery Room Air Medical Decision Making - Lab Data Result diagrams: 08/02/18 17:36 08/02/18 17:36 Lab Results 08/02/18 08/02/18 08/02/18 Range/Units 17:20 17:20 17:36 WBC 9.2 (4.3-11.1) K/mcL RBC 4.80 (4.19-5.50) M/mcL Hgb 14.9 (12.9-16.9) g/dL Hct 43.8 (37.5-50.1) % MCV 91.3 (83.0-100.0) fL MCH 31.0 (28.0-33.3) pg MCHC 34.0 (31.6-35.5) g/dL RDW 12.4 (11.5-14.5) % Plt Count 311 (140-400) K/mcL MPV 10.6 (9.4-12.4) fL Immature Gran % 0.3 (0-4) % Seg Neutrophils % 53.6 % Lymphocytes % 35.0 % Monocytes % 8.2 % Eosinophils % 2.4 % Basophils % 0.5 % Neutrophils # 4.9 (1.6-8.9) K/mcL Lymphocytes # 3.2 (0.6-4.6) K/mcL Monocytes # 0.8 (0.0-1.3) K/mcL Eosinophils # 0.2 (0.0-0.6) K/mcL Basophils # 0.1 (0.0-0.2) K/mcL Sodium (136-145) mEq/L Potassium (3.5-5.1) mEq/L Chloride (98-107) mEq/L Carbon Dioxide (23-29) mEq/L BUN (6-20) mg/dL Creatinine (0.70-1.30) mg/dL Est GFR ( Amer) (> 60) Est GFR (Non-Af Amer) (> 60) BUN/Creatinine Ratio (6-26) Glucose (70-105) mg/dL Calculated Osmolality (280-300) Calcium (8.6-10.3) mg/dL Urine Color Yellow (Yellow) Urine Clarity Clear (Clear) Urine pH 7.0 (5.0-8.0) pH Units Ur Specific [place] 1.010 (1.010-1.025) Urine Protein Negative (Neg-Trace) mg/dL Urine Glucose (UA) Normal (Normal) mg/dL Urine Ketones Negative (Negative) mg/dL Urine Blood Negative (Negative) Urine Nitrite Negative (Negative) Urine Bilirubin Negative (Negative) Urine Urobilinogen Normal (Normal) mg/dL Ur Leukocyte Esterase Negative (Negative) Salicylates (15.0-30.0) mg/dL Urine Opiates Screen Negative (Uldysn=377) ng/mL Acetaminophen (10-20) mcg/mL Ur Barbiturates Screen Negative (Jiilwp=496) ng/mL Valproic Acid (50-100) mcg/mL Ur Phencyclidine Scrn Negative (Cutoff=25) ng/mL Ur Amphetamines Screen Negative (Kxugls=7846) ng/mL U Benzodiazepines Scrn Negative (Tkwklb=467) ng/mL Urine Cocaine Screen Negative (Cutoff= 300) ng/mL U Marijuana (THC) Screen Negative (Cutoff = 50) ng/mL Ur Drug Screen Interp See Below Ethyl Alcohol (Less than 10) mg/dL 08/02/18 Range/Units 17:36 WBC (4.3-11.1) K/mcL RBC (4.19-5.50) M/mcL Hgb (12.9-16.9) g/dL Hct (37.5-50.1) % MCV (83.0-100.0) fL MCH (28.0-33.3) pg MCHC (31.6-35.5) g/dL RDW (11.5-14.5) % Plt Count (140-400) K/mcL MPV (9.4-12.4) fL Immature Gran % (0-4) % Seg Neutrophils % % Lymphocytes % % Monocytes % % Eosinophils % % Basophils % % Neutrophils # (1.6-8.9) K/mcL Lymphocytes # (0.6-4.6) K/mcL Monocytes # (0.0-1.3) K/mcL Eosinophils # (0.0-0.6) K/mcL Basophils # (0.0-0.2) K/mcL Sodium 138 (136-145) mEq/L Potassium 4.0 (3.5-5.1) mEq/L Chloride 104 (98-107) mEq/L Carbon Dioxide 26 (23-29) mEq/L BUN 16 (6-20) mg/dL Creatinine 1.14 (0.70-1.30) mg/dL Est GFR ( Amer) > 60 (> 60) Est GFR (Non-Af Amer) > 60 (> 60) BUN/Creatinine Ratio 14 (6-26) Glucose 105 (70-105) mg/dL Calculated Osmolality 288 (280-300) Calcium 9.7 (8.6-10.3) mg/dL Urine Color (Yellow) Urine Clarity (Clear) Urine pH (5.0-8.0) pH Units Ur Specific [place] (1.010-1.025) Urine Protein (Neg-Trace) mg/dL Urine Glucose (UA) (Normal) mg/dL Urine Ketones (Negative) mg/dL Urine Blood (Negative) Urine Nitrite (Negative) Urine Bilirubin (Negative) Urine Urobilinogen (Normal) mg/dL Ur Leukocyte Esterase (Negative) Salicylates < 2.5 L (15.0-30.0) mg/dL Urine Opiates Screen (Tzjaxy=802) ng/mL Acetaminophen < 10 L (10-20) mcg/mL Ur Barbiturates Screen (Qdqffz=591) ng/mL Valproic Acid 23 L (50-100) mcg/mL Ur Phencyclidine Scrn (Cutoff=25) ng/mL Ur Amphetamines Screen (Qspzuz=9075) ng/mL U Benzodiazepines Scrn (Bbjgxd=999) ng/mL Urine Cocaine Screen (Cutoff= 300) ng/mL U Marijuana (THC) Screen (Cutoff = 50) ng/mL Ur Drug Screen Interp Ethyl Alcohol < 10 (Less than 10) mg/dL Attestation Statement - Attestation Attestation: I examined this patient and my medical decision-making was reviewed with the Resident Physician. I agree with the documented findings, disposition and tr eatment plan as described except to the extent set forth below. Patient to the ED with auditory hallucinations. History of schizophrenia. Patient, cooperative on my evaluation. Voices no physical complaints. Plan. Medical clearance and evaluation by [facility]A. [facility] was aware of the patient. Patient is admitted to their service.
[2018-08-02 17:52] LABS: Amphetamine Screen,Urine Negative ng/mL (Cutoff=1000); Barbiturate Screen,Urine Negative ng/mL (Cutoff=200); Benzodiazepines Screen,Urine Negative ng/mL (Cutoff=200); Cannabinoid Screen,Urine Negative ng/mL (Cutoff = 50); Cocaine Screen,Urine Negative ng/mL (Cutoff= 300); Opiate Screen,Urine Negative ng/mL (Cutoff=300); Phencyclidine Screen,Urine Negative ng/mL (Cutoff=25)
[2018-08-02 18:00] LABS: Basophils # 0.1 K/mcL (0.0-0.2); Basophils % 0.5 %; Eosinophils # 0.2 K/mcL (0.0-0.6); Eosinophils % 2.4 %; Hematocrit 43.8 % (37.5-50.1); Hemoglobin 14.9 g/dL (12.9-16.9); Immature Granulocytes % 0.3 % (0-4); Lymphocytes # 3.2 K/mcL (0.6-4.6); Mean Corpuscular Volume 91.3 fL (83.0-100.0); Mean Platelet Volume 10.6 fL (9.4-12.4); Monocytes # 0.8 K/mcL (0.0-1.3); Monocytes % 8.2 %; Neutrophils # 4.9 K/mcL (1.6-8.9); Platelet Count 311 K/mcL (140-400); Red Cell Distribution Width 12.4 % (11.5-14.5); Segmented Neutrophils % 53.6 %
[2018-08-02 18:20] LABS: Acetaminophen < 10 mcg/mL (10-20); BUN/Creatinine Ratio 14 (6-26); Blood Urea Nitrogen 16 mg/dL (6-20); Calcium 9.7 mg/dL (8.6-10.3); Carbon Dioxide 26 mEq/L (23-29); Chloride 104 mEq/L (98-107); Ethanol < 10 mg/dL (Less than 10); Glucose 105 mg/dL (70-105); Osmolality,Calculated 288 (280-300); Salicylate < 2.5 mg/dL (15.0-30.0); Sodium 138 mEq/L (136-145); Valproate 23 mcg/mL (50-100); eGFR For Non-African Americans > 60 (> 60)
[2018-08-02] MEDS ORDERED: hydrOXYzine pamoate 25 MG CAPSULE PO PRN (19:25)
[2018-08-02] MEDS ORDERED: *HR* LORazepam 2 MG/ML VIAL IM PRN (19:25)
[2018-08-02] MEDS ORDERED: MOM Conc 10 ML UD.LIQ PO PRN (19:25)
[2018-08-02] MEDS ORDERED: Mag Hydrox/Al Hydrox/Simeth 30 ML UDC PO PRN (19:25)
[2018-08-02] MEDS ORDERED: Haloperidol Lactate 5 MG/ML VIAL IM PRN (19:25)
[2018-08-02] MEDS ORDERED: Nicotine 2 MG GUM BC PRN (19:25)
[2018-08-02] MEDS ORDERED: *HR* LORazepam 1 MG TABLET PO PRN (19:25)
[2018-08-02] MEDS: Divalproex (12 HR) 500 MG TABLET PO SCH (21:25)
[2018-08-02] MEDS: *HR* LORazepam 1 MG TABLET PO SCH (21:26)
[2018-08-02] MEDS: Ibuprofen 400 MG TABLET PO PRN (21:29)
[2018-08-03] MEDS: *HR* LORazepam 1 MG TABLET PO SCH ×3 (08:13→20:14)
[2018-08-03] MEDS: NALTREXONE HCL 50 MG TABLET PO SCH (08:14)
--- NOTE | 2018-08-03 12:00 | Psychiatry History & Physical ---
Date of Encounter: 08/03/18 Time of Encounter: 11:00 History of Present Illness Medicare Admission Attestation: For traditional Medicare patients the provided hospital inpatient services are reasonable and necessary and in the case of services not specified as inpatient-only under 42 CFR 419.22 (n), that they are appropriately provided as inpatient services in accordance 42 CFR 412.3. For Critical Access Hospital the patient may reasonably be expected to be discharged or transferred to a hospital within 96 hours after admission to the Critical Access Hospital. Admitted From: Home Plans for Post Hospital Care: Home History of Present Illness: Pt is a 38 yo,, male, who presents for exacerbation of Schizophrenia . Pt noted that "Gods telling me I am not a chrisitian since I smoke." Once pt was medically cleared pt was admitted to for psychiatric stabilization from [facility]. Pt was in agreement with medication adjustment and prn medication for calm. Pt denied any side effects to current medications. Pt noted he felt safe and comfortable on the unit. Pt was in agreement with current treatment plan. Pt noted that he is doing okay today. Pt noted he slept a little last night. Pt noted his appetite is good. Pt rated his depression a 0, on a scale of zero to ten with ten being the worst and zero being none. Pt rate his anxiety a 0, on the same scale. Pt denied any visual hallucinations. Pt noted auditory hallucinations of the Devil, God and Demons talking to me Pt denied any current thoughts to harm himself or anyone else. Pt denied any Street drug or alcohol use. PT agreed to Continue current medications Pt was educated on the risks benefits and side-effects of these medications including no medication, pt was in agreeme nt. No TD noted, AIMS=0 1.Interval hx 2. PRN medications put in for exacerbation of psychosis. 3.Continue current medications 4.Review current labs 5.Pt had an opportunity to ask questions and discuss current treatment plan. 6.Supportive therapy was provided 7.Pt encouraged to consider group or individual therapy 8.Pt was in agreement with treatment plan. 9.Pt was educated on the risks benefits and side effects of current medications. Past Med Surg Social Fam HX - Past Medical History Medical history: hypertension, pulmonary embolus - Past Psychiatric History Psychiatric history: Reports: schizophrenia, previous psychiatric hospitalization Family psychiatric history: Yes Family History of Suicide: None - Past Surgical History Surgical History: appendectomy, arthroscopy - Social History Smoking Status: Current every day smoker Smokeless Tobacco Status: No Alcohol use: occasionally Drug use: cocaine, marijuana, methamphetamine - Family History Father Adopted: No Family Member Ethnicity: Non- Living Status: Still Living Hx Family Cardiac Disorders: No Hx Family Respiratory Disorders: No Hx Family Cancer: No Hx Family GI Disorders: No Hx Family Endocrine Disorder: No Hx Family Neuromuscular Disorders: No Hx Family Neurologic Disorders: No Hx Family HEENT Disorders: No Hx Family Autoimmune Disorders: No Medications & Allergies Benztropine [Cogentin] 1 mg PO BID 30 Days #60 tablet 12/21/17 [Rx] Divalproex (12 HR) [Depakote (12 HR)] 250 mg PO BID 30 Days #60 tablet.dr 12/21/17 [Rx] Naltrexone HCl 50 mg PO DAILY 30 Days #30 tablet 12/21/17 [Rx] Propranolol [Inderal] 20 mg PO BID 30 Days #60 tablet 12/21/17 [Rx] Amantadine [Symmetrel] 100 mg PO BID #60 capsule 05/18/18 [Rx] LORazepam [Ativan] 2 mg PO TID 15 Days #45 tablet 06/01/18 [Rx] Lurasidone [Latuda] 160 mg PO QPM 14 Days #14 tablet 06/01/18 [Rx] Allergy/AdvReac Type Severity Reaction Status Date / Time No Known Allergies Allergy Verified 07/09/18 13:18 Review of Systems Constitutional: Denies: fever, chills, weakness, weight change Eyes: Denies: eye pain, vision change Ears, Nose, Throat: Denies: ear pain, throat pain, dental pain, hearing loss, congestion Cardiovascular: Denies: chest pain, palpitations, dyspnea on exertion Respiratory: Denies: cough, dyspnea, wheezes Gastrointestinal: Denies: abdominal pain, nausea, vomiting, diarrhea, constipation Genitourinary male: Denies: urgency, dysuria, frequency, genital lesions Musculoskeletal: Denies: joint swelling, joint pain Integumentary: Denies: rash, lesions, pruritus Neurological: Denies: headache, weakness, numbness, memory loss Psychiatric: Reports: depression, anxiety, auditory hallucinations, visual hallucinations Endocrine: Denies: fatigue, heat or cold intolerance Hematologic/Lymphatic: Denies: easy bruising, lymphadenopathy Allergic/Immunologic: Denies: urticaria, itchy eyes Exam - HEENT Head exam IM: Present: atraumatic Eye exam IM: Present: EOMI, normal appearance, PERRL ENT exam IM: Present: normal exam - Neurological Neurological exam: Present: CN II-XII intact - Respiratory Respiratory exam IM: Present: CTAB - GI/Abdominal GI/Abdominal exam IM: Present: normal bowel sounds, soft. Absent: tenderness - Extremities Extremities exam IM: Present: full ROM - Skin Skin exam IM: Present: dry, warm - Constitutional Vitals: Temp Pulse Resp BP Pulse Ox 97.1 F L 85 18 129/78 98 08/03/18 09:00 08/03/18 09:00 08/03/18 09:00 08/03/18 09:00 08/03/18 09:00 General appearance: age & developmentally appropriate, well-groomed, well- nourished - Musculoskeletal Gait: normal Station: relaxed Strength & Tone: normal for patient - Psychiatric Patient Orientation: Yes Person, Yes Time, Yes Place Level of alertness: Alert Behavior: calm, cooperative Psychomotor activity: Agitated Eye Contact: Maintains Eye Contact Mood Description: Euthymic/stable Affect description: congruent with mood, flat Speech Volume: Soft/Quiet Speech pattern: normal rate, normal rhythm, spontaneous, monotone, mumbled Language & Vocabulary: consistent with education Thought Process: Linear, Goal Oriented, Thought Blocking Thought Content: No Suicidal ideation, No Homicidal ideation, No Overt delusions Perceptual Disturbances: Yes Auditory hallucinations, No Visual hallucinations Attention Span Ability: Capable of Focused Attention Memory Description: Grossly Intact Patient Reliability: Reliable Historian Fund of knowledge: Yes abstraction ability, Yes average, Yes aware of current events Intelligence Estimate: Average Judgment: Poor Insight: Minimal Results - Drug Levels and Toxicology Drug Levels and Toxicology: Drug Levels and Toxicity 08/02/18 08/02/18 17:20 17:36 Urine Opiates Screen Negative Acetaminophen < 10 L Ur Barbiturates Screen Negative Ur Phencyclidine Scrn Negative Ur Amphetamines Screen Negative U Benzodiazepines Scrn Negative Urine Cocaine Screen Negative U Marijuana (THC) Screen Negative Ethyl Alcohol < 10 - Labs Labs: Laboratory Last Values WBC 9.2 K/mcL (4.3-11.1) 08/02/18 17:36 RBC 4.80 M/mcL (4.19-5.50) 08/02/18 17:36 Hgb 14.9 g/dL (12.9-16.9) 08/02/18 17:36 Hct 43.8 % (37.5-50.1) 08/02/18 17:36 MCV 91.3 fL (83.0-100.0) 08/02/18 17:36 MCH 31.0 pg (28.0-33.3) 08/02/18 17:36 MCHC 34.0 g/dL (31.6-35.5) 08/02/18 17:36 RDW 12.4 % (11.5-14.5) 08/02/18 17:36 Plt Count 311 K/mcL (140-400) 08/02/18 17:36 MPV 10.6 fL (9.4-12.4) 08/02/18 17:36 Immature Gran % 0.3 % (0-4) 08/02/18 17:36 Seg Neutrophils % 53.6 % 08/02/18 17:36 Lymphocytes % 35.0 % 08/02/18 17:36 Monocytes % 8.2 % 08/02/18 17:36 Eosinophils % 2.4 % 08/02/18 17:36 Basophils % 0.5 % 08/02/18 17:36 Neutrophils # 4.9 K/mcL (1.6-8.9) 08/02/18 17:36 Lymphocytes # 3.2 K/mcL (0.6-4.6) 08/02/18 17:36 Monocytes # 0.8 K/mcL (0.0-1.3) 08/02/18 17:36 Eosinophils # 0.2 K/mcL (0.0-0.6) 08/02/18 17:36 Basophils # 0.1 K/mcL (0.0-0.2) 08/02/18 17:36 Sodium 138 mEq/L (136-145) 08/02/18 17:36 Potassium 4.0 mEq/L (3.5-5.1) 08/02/18 17:36 Chloride 104 mEq/L (98-107) 08/02/18 17:36 Carbon Dioxide 26 mEq/L (23-29) 08/02/18 17:36 BUN 16 mg/dL (6-20) 08/02/18 17:36 Creatinine 1.14 mg/dL (0.70-1.30) 08/02/18 17:36 Est GFR ( Amer) > 60 (> 60) 08/02/18 17:36 Est GFR (Non-Af Amer) > 60 (> 60) 08/02/18 17:36 BUN/Creatinine Ratio 14 (6-26) 08/02/18 17:36 Glucose 105 mg/dL (70-105) 08/02/18 17:36 Calculated Osmolality 288 (280-300) 08/02/18 17:36 Calcium 9.7 mg/dL (8.6-10.3) 08/02/18 17:36 Urine Color Yellow (Yellow) 08/02/18 17:20 Urine Clarity Clear (Clear) 08/02/18 17:20 Urine pH 7.0 pH Units (5.0-8.0) 08/02/18 17:20 Ur Specific [place] 1.010 (1.010-1.025) 08/02/18 17:20 Urine Protein Negative mg/dL (Neg-Trace) 08/02/18 17:20 Urine Glucose (UA) Normal mg/dL (Normal) 08/02/18 17:20 Urine Ketones Negative mg/dL (Negative) 08/02/18 17:20 Urine Blood Negative (Negative) 08/02/18 17:20 Urine Nitrite Negative (Negative) 08/02/18 17:20 Urine Bilirubin Negative (Negative) 08/02/18 17:20 Urine Urobilinogen Normal mg/dL (Normal) 08/02/18 17:20 Ur Leukocyte Esterase Negative (Negative) 08/02/18 17:20 Salicylates < 2.5 mg/dL (15.0-30.0) L 08/02/18 17:36 Urine Opiates Screen Negative ng/mL (Yejsvu=563) 08/02/18 17:20 Acetaminophen < 10 mcg/mL (10-20) L 08/02/18 17:36 Ur Barbiturates Screen Negative ng/mL (Culxwx=963) 08/02/18 17:20 Valproic Acid 23 mcg/mL (50-100) L 08/02/18 17:36 Ur Phencyclidine Scrn Negative ng/mL (Cutoff=25) 08/02/18 17:20 Ur Amphetamines Screen Negative ng/mL (Pssvcx=8196) 08/02/18 17:20 U Benzodiazepines Scrn Negative ng/mL (Yjzibw=844) 08/02/18 17:20 Urine Cocaine Screen Negative ng/mL (Cutoff= 300) 08/02/18 17:20 U Marijuana (THC) Screen Negative ng/mL (Cutoff = 50) 08/02/18 17:20 Ur Drug Screen Interp See Below 08/02/18 17:20 Ethyl Alcohol < 10 mg/dL (Less than 10) 08/02/18 17:36 Assessment and Plan (1) Auditory hallucinations Current visit: Yes Status: Acute Plan: Admit inpatient for safety and stabilization, Close observation, Suicide Precautions per unit protocol, Encourage participation in unit milieu, Group Therapy, Monitor sleep, Monitor appetite Risks, benefits, side effects, alternatives discussed w/pt: Yes Patient agreeable to treatment: Yes Plans for Post Hospital Care: at Medical Facility (2) Acute exacerbation of chronic paranoid schizophrenia Current visit: No Status: Acute Plan: Admit inpatient for safety and stabilization, Close observation, Suicide Precautions per unit protocol, Encourage participation in unit milieu, Group Therapy, Monitor sleep, Monitor appetite Risks, benefits, side effects, alternatives discussed w/pt: Yes Patient agreeable to treatment: Yes Plans for Post Hospital Care: at Medical Facility
[2018-08-03] MEDS: Ibuprofen 400 MG TABLET PO PRN (20:14)
[2018-08-03] MEDS: Divalproex (12 HR) 500 MG TABLET PO SCH (20:14)
[2018-08-03] MEDS: traZODone 50 MG TABLET PO PRN (20:17)
[2018-08-04] MEDS: *HR* LORazepam 1 MG TABLET PO SCH ×3 (09:06→20:06)
[2018-08-04] MEDS: NALTREXONE HCL 50 MG TABLET PO SCH (09:07)
--- NOTE | 2018-08-04 10:23 | Psychiatry Progress Note ---
Date of Encounter: 08/04/18 Time of Encounter: 09:30 Subjective Interval history: Pt is a 38 yo,, male, who presents for exacerbation of Schizophrenia . Pt noted that "Gods telling me I am not a chrisitian since I smoke." Ptnoted he is doing "well today." Pt was in agreement with medication adjustment and prn medication for calm. Pt denied any side effects to current medications. Pt noted he felt safe and comfortable on the unit. Pt was in agreement with current treatment plan. Pt noted that he is doing okay today. Pt noted he slept a little last night. Pt noted his appetite is good. Pt rated his depression a 0, on a scale of zero to ten with ten being the worst and zero being none. Pt rate his anxiety a 0, on the same scale. Pt denied any visual hallucinations. Pt noted auditory hallucinations of the Devil, God and Demons talking to me Pt denied any current thoughts to harm himself or anyone else. Pt denied any Street drug or alcohol use. PT agreed to Continue current medications Pt was educated on the risks benefits and side-effects of these medications including no medication, pt was in agreement. No TD noted, AIMS=0 No muscle rigidity noted 1.Interval hx 2. PRN medications put in for exacerbation of psychosis. 3.Continue current medications 4.Review current labs 5.Pt had an opportunity to ask questions and discuss current treatment plan. 6.Supportive therapy was provided 7.Pt encouraged to consider group or individual therapy 8.Pt was in agreement with treatment plan. 9.Pt was educated on the risks benefits and side effects of current medications. 10. Start haloperidol 5 mg PO QHS 11. Start cogentin 1 mg PO BID Review of Systems Constitutional: Denies: fever, chills, weakness, weight change Eyes: Denies: eye pain, vision change Ears, Nose, Throat: Denies: ear pain, throat pain, dental pain, hearing loss, congestion Cardiovascular: Denies: chest pain, palpitations, dyspnea on exertion Respiratory: Denies: cough, dyspnea, wheezes Gastrointestinal: Denies: abdominal pain, nausea, vomiting, diarrhea, constipation Musculoskeletal: Denies: joint swelling, joint pain Neurological: Denies: headache, weakness, numbness, memory loss Psychiatric: Reports: depression, anxiety, auditory hallucinations, visual hallucinations Results - Vital Signs Vital Signs: Temp Pulse Resp BP Pulse Ox 98.2 F 94 16 122/86 97 08/04/18 09:00 08/04/18 09:00 08/04/18 09:00 08/04/18 09:00 08/04/18 09:00 Assessment and Plan (1) Auditory hallucinations Current visit: Yes Status: Acute Plan: Continue hospitalization, Close observation, Suicide Precautions per unit protocol, Encourage participation in unit milieu, Group Therapy, Monitor sleep, Monitor appetite Risks, benefits, side effects, alternatives discussed w/pt: Yes Patient agreeable to treatment: Yes (2) Acute exacerbation of chronic paranoid schizophrenia Current visit: No Status: Acute Plan: Continue hospitalization, Close observation, Suicide Precautions per unit protocol, Encourage participation in unit milieu, Group Therapy, Monitor sleep, Monitor appetite Risks, benefits, side effects, alternatives discussed w/pt: Yes Patient agreeable to treatment: Yes Consult Discharge Plan - Plan Additional Instructions: coordinate with [facility] once stable Referrals: [facility] [Outside] - 08/09/18 2:30 pm (You are returning into mental health respite at [facility] on discharge from the hospital. While there, you will be seen daily by the clinic counselors and lining caser, both individually and in group. You will also see Yaritza Ortiz for outpatient psychiatric assessment and medication management services on 08/09/2018 at 2:30 PM. ) Psychiatry Exam - Constitutional Vitals: Temp Pulse Resp BP Pulse Ox 98.2 F 94 16 122/86 97 08/04/18 09:00 08/04/18 09:00 08/04/18 09:00 08/04/18 09:00 08/04/18 09:00 General appearance: age & developmentally appropriate, well-groomed, well- nourished - Musculoskeletal Gait: normal Station: relaxed Strength & Tone: normal for patient - Psychiatric Patient Orientation: Yes Person, Yes Time, Yes Place Level of alertness: Alert Behavior: calm, cooperative Psychomotor activity: Normal Eye Contact: Maintains Eye Contact Mood Description: Euthymic/stable Affect description: congruent with mood, flat Speech Volume: Normal Speech pattern: normal rate, normal rhythm, fluent, spontaneous, monotone Language & Vocabulary: consistent with education Thought Process: Goal Oriented, Circumstantial, Thought Blocking, [place] Thought Content: No Suicidal ideation, No Homicidal ideation, No Overt delusions Perceptual Disturbances: Yes Auditory hallucinations, No Visual hallucinations Attention Span Ability: Capable of Focused Attention Memory Description: Grossly Intact Patient Reliability: Reliable Historian Fund of knowledge: Yes abstraction ability, Yes aware of current events Intelligence Estimate: Average Judgment: Poor Insight: Minimal
[2018-08-04 11:01] LABS: Basophils % 0.5 %; Eosinophils # 0.1 K/mcL (0.0-0.6); Eosinophils % 1.4 %; Hematocrit 42.7 % (37.5-50.1); Hemoglobin 14.5 g/dL (12.9-16.9); Immature Granulocytes % 0.1 % (0-4); Lymphocytes # 2.1 K/mcL (0.6-4.6); Lymphocytes % 26.8 %; Mean Corpuscular Hemoglobin 30.9 pg (28.0-33.3); Mean Platelet Volume 10.8 fL (9.4-12.4); Monocytes # 0.6 K/mcL (0.0-1.3); Monocytes % 8.2 %; Neutrophils # 4.9 K/mcL (1.6-8.9); Platelet Count 293 K/mcL (140-400); Red Blood Count 4.69 M/mcL (4.19-5.50); Red Cell Distribution Width 12.9 % (11.5-14.5)
[2018-08-04 11:46] LABS: Alanine Aminotransferase 30 Units/L (7-52); Albumin 4.1 g/dL (3.5-5.7); Albumin/Globulin Ratio 1.5 (1.1-2.2); Alkaline Phosphatase 66 Units/L (34-104); Aspartate Amino Transferase 18 Units/L (13-39); BUN/Creatinine Ratio 14 (6-26); Bilirubin,Total 0.6 mg/dL (0.3-1.0); Blood Urea Nitrogen 15 mg/dL (6-20); Calcium 9.3 mg/dL (8.6-10.3); Carbon Dioxide 23 mEq/L (23-29); Chloride 106 mEq/L (98-107); Globulin 2.8 g/dL (2.4-3.5); Glucose 117 mg/dL (70-105); Osmolality,Calculated 290 (280-300); Potassium 4.2 mEq/L (3.5-5.1); Sodium 139 mEq/L (136-145); Total Protein 6.9 g/dL (6.4-8.9); eGFR For Non-African Americans > 60 (> 60)
[2018-08-04] MEDS: Ibuprofen 400 MG TABLET PO PRN (20:05)
[2018-08-04] MEDS: traZODone 50 MG TABLET PO PRN (20:05)
[2018-08-04] MEDS: Divalproex (12 HR) 500 MG TABLET PO SCH (20:06)
[2018-08-05] MEDS: *HR* LORazepam 1 MG TABLET PO SCH (08:43)
[2018-08-05] MEDS: NALTREXONE HCL 50 MG TABLET PO SCH (08:43)
[2018-08-05 09:48] VITALS: BP 128/75
--- NOTE | 2018-08-05 10:06 | Discharge Summary ---
Date of Encounter: 08/05/18 Time of Encounter: 15:00 Diagnosis - Discharge Diagnosis (1) Auditory hallucinations Status: Acute (2) Acute exacerbation of chronic paranoid schizophrenia Status: Acute Medications - Discharge Medications Prescriptions: Amantadine [Symmetrel] 100 mg PO BID #60 capsule Benztropine [Cogentin] 1 mg PO BID 30 Days #60 tablet Divalproex (12 HR) [Depakote (12 HR)] 250 mg PO BID 30 Days #60 tablet. Haloperidol [Haldol] 5 mg PO HS 30 Days #30 tablet LORazepam [Ativan] 2 mg PO TID 15 Days #45 tablet Lurasidone [Latuda] 160 mg PO QPM 14 Days #14 tablet Naltrexone HCl 50 mg PO DAILY 30 Days #30 tablet Propranolol [Inderal] 20 mg PO BID 30 Days #60 tablet Amantadine [Symmetrel] 100 mg PO BID #60 capsule 08/05/18 [Rx] Benztropine [Cogentin] 1 mg PO BID 30 Days #60 tablet 08/05/18 [Rx] Divalproex (12 HR) [Depakote (12 HR)] 250 mg PO BID 30 Days #60 tablet. 08/05/18 [Rx] Haloperidol [Haldol] 5 mg PO HS 30 Days #30 tablet 08/05/18 [Rx] LORazepam [Ativan] 2 mg PO TID 15 Days #45 tablet 08/05/18 [Rx] Lurasidone [Latuda] 160 mg PO QPM 14 Days #14 tablet 08/05/18 [Rx] Naltrexone HCl 50 mg PO DAILY 30 Days #30 tablet 08/05/18 [Rx] Propranolol [Inderal] 20 mg PO BID 30 Days #60 tablet 08/05/18 [Rx] Allergy/AdvReac Type Severity Reaction Status Date / Time No Known Allergies Allergy Verified 07/09/18 13:18 Results Procedures and tests throughout hospitalization: Completed Lab Orders Category Date Time Status Acetaminophen Stat Lab 08/02/18 17:36 Completed Ammonia Stat Lab 08/04/18 15:33 Completed Basic Metabolic Panel Stat Lab 08/02/18 17:36 Completed CBC [Complete Blood Count] [HEME] Stat Lab 08/04/18 10:47 Completed CMP [Comprehensive Metabolic Panel] Stat Lab 08/04/18 10:47 Completed Complete Blood Count [HEME] Stat Lab 08/02/18 17:36 Completed Drug Screen, Urine [UCHEM] Stat Lab 08/02/18 17:20 Completed Ethanol Stat Lab 08/02/18 17:36 Completed Salicylate Stat Lab 08/02/18 17:36 Completed Urinalysis reflex Microscopic [URIN] Stat Lab 08/02/18 17:20 Completed Valproate Stat Lab 08/02/18 17:36 Completed Valproate Stat Lab 08/04/18 10:47 Completed Provider Date of admission: 08/02/18 18:38 Primary care physician: PCP NONE Discharging clinician: Jacky Tavares Psychiatry Exam - Constitutional Vitals: Temp Pulse Resp BP Pulse Ox 98.2 F 82 20 128/75 98 08/05/18 09:00 08/05/18 09:00 08/05/18 09:00 08/05/18 09:00 08/05/18 09:00 General appearance: age & developmentally appropriate, well-groomed, well- nourished - Musculoskeletal Gait: normal Station: relaxed Strength & Tone: normal for patient - Psychiatric Patient Orientation: Yes Person, Yes Time, Yes Place Level of alertness: Alert Behavior: calm, cooperative Psychomotor activity: Normal Eye Contact: Maintains Eye Contact Mood Description: Euthymic/stable Affect description: congruent with mood, full range Speech Volume: Normal Speech pattern: normal rate, normal rhythm, fluent, spontaneous, monotone Language & Vocabulary: consistent with education Thought Process: Linear, Goal Oriented, Thought Blocking Thought Content: No Suicidal ideation, No Homicidal ideation, No Overt delusions Perceptual Disturbances: Yes Auditory hallucinations (denies current however has returned to baseline), No Visual hallucinations Attention Span Ability: Capable of Focused Attention Memory Description: Grossly Intact Patient Reliability: Reliable Historian Fund of knowledge: Yes abstraction ability, Yes aware of current events Intelligence Estimate: Average Judgment: Limited Insight: Partial Hospital Course Hospital course: Pt is a 38 yo,, male, who presents for exacerbation of Schizophrenia . Pt noted that "Gods telling me I am not a chrisitian since I smoke." Pt noted he is doing "much better today." Pt was in agreement with with current discharge and treatment plan. Pt denied any side effects to current medications. Pt noted he felt safe and comfortable on the unit and for discharge home. Pt was in agreement with current treatment plan. Pt noted that he is doing okay today. Pt noted he slept a little last night. Pt noted his appetite is good. Pt rated his depression a 0, on a scale of zero to ten with ten being the worst and zero being none. Pt rate his anxiety a 0, on the same scale. Pt denied any visual hallucinations. Pt noted auditory hallucinations of the Devil, God and Demons talking to me Pt denied any current thoughts to harm himself or anyone else. Pt denied any Street drug or alcohol use. Patient noted a significant reeducation in his schizophrenic symptoms, depression and anxiety during his stay at [place]. Pt noted that he slowly improved to the point that he was comfortable and safe to D/C home. Pt noted he felt his medications were working well and denied any current side effects. Treatment team encouraged Pt to stay out of bed and try to find activities to do, verbalized understanding. pt reported that he felt safe on the unit and comfortable for Discharge to [facility]. Pt Denied suicidal/homicidal ideations, denied any problems or concerns with medications or side effects. PT voiced progression towards treatment goals and was offered a copy of updated treatment plan completed during visit today. Denied any immediate needs or concerns. Pt denied any access to guns or weapons. Pt throughout his stay on [facility] psych pt felt like his medications were working and felt comfortable being discharged on these medications. Pt was advised to take all medications as prescribed, follow up with all scheduled appointments and abstain from any alcohol or illicit substances. Pt was in agreement. Pt felt safe and comfortable to be discharged to his home and follow up with [facility] mental health. Pt was very optimistic about his D/C. Pt felt safe and comfortable for D/C. The patient was educated primarily by verbal means about his diagnoses and their manifestations in his life. The option for treatment including group individual therapy programming was offered to his and the use of medications with all their potential risks, benefits, and side-effects were discussed with the pt at length. Pt was given the opportunity to ask questions and he participated in the treatment and planning process. Pt felt ready and eager to be discharged from the from the unit to be discharged home. Pt felt he was safe for this disposition. Pt was considered to be able to participate in informed consent and decision-making with respect to medical, legal and financial issues at the time of his discharge from the Center. Pt denied TBI, Seizures, HEP C or HIV. No TD noted, AIMS=0 Assessment/Plan 1. Interval hx 2. Continue current medications 3. Review current labs 4. Pt had an opportunity to ask questions and discuss current treatment plan. 5. Supportive therapy was provided 6. Pt encouraged to consider group or individual therapy 7. Pt was in agreement with treatment plan. 8. Pt was educated on the risks benefits and side effects of current medications. 9. abstain from any alcohol or illict substances. 10. follow up with all sheduled appointments. 11. D/C Pt home Time spent discussing smoking cessation with patient: 3 to 10 minutes Does patient wish to continue nicotine replacement upon disc: No - Time Spent with Patient Total time spent providing and/or coordinating discharge services: Greater than 30 minutes Assessment and Plan - Patient/Caregiver Discharge Instructions Activity: resume usual activities as tolerated Diet: regular diet - Follow up Plan Follow up with: [facility] [Outside] - 08/09/18 2:30 pm (You are returning into mental health respite at [facility] on discharge from the hospital. While there, you will be seen daily by the clinic counselors and keycase assembler, both individually and in group. You will also see Yaritza Ortiz for outpatient psychiatric assessment and medication management services on 08/09/2018 at 2:30 PM. ) Overall status at discharge: patient is back to baseline Disposition: Transfer Intermediate Care [facility] Quality - Multiple Antipsychotics Patient discharged on 2 or more antipsychotic medications: Yes - Justification Documentation of: History 3 failed trials of monotherapy (pt has failed, risperidone, haloperidol, lurasidone and quetipaine, pt currently stable on 2 antipsychotics) Procedures - Procedures Procedures: Medication Management, Crisis Stabilization, Supportive Therapy, Group Therapy, Psychoeducational Therapy
== END 2018-08-05 12:25 | DRG 750 ==
LOC: EMEROOARM 16:58 → 1ANU 18:38
PROVIDERS: ADMIT General Practice; ATTEND General Practice

== ENCOUNTER 2019-09-02 22:42 | Inpatient (IN) ==
[2019-09-02 23:47] LABS: Basophils # 0.1 K/mcL (0.0-0.2); Basophils % 0.5 %; Eosinophils # 0.2 K/mcL (0.0-0.6); Eosinophils % 1.6 %; Hematocrit 44.3 % (37.5-50.1); Hemoglobin 15.2 g/dL (12.9-16.9); Immature Granulocytes % 0.6 % (0-4); Lymphocytes # 3.7 K/mcL (0.6-4.6); Lymphocytes % 34.4 %; Mean Corpuscular HGB Conc 34.3 g/dL (31.6-35.5); Mean Corpuscular Hemoglobin 30.4 pg (28.0-33.3); Mean Corpuscular Volume 88.6 fL (83.0-100.0); Mean Platelet Volume 10.3 fL (9.4-12.4); Monocytes # 1.1 K/mcL (0.0-1.3); Monocytes % 10.5 %; Neutrophils # 5.7 K/mcL (1.6-8.9); Platelet Count 362 K/mcL (140-400); Red Cell Distribution Width 13.2 % (11.5-14.5); Segmented Neutrophils % 52.4 %; White Blood Count 10.8 K/mcL (4.3-11.1)
[2019-09-02 23:49] LABS: Acetaminophen < 10 mcg/mL (10-20); BUN/Creatinine Ratio 9 (6-26); Blood Urea Nitrogen 9 mg/dL (6-20); Calcium 9.5 mg/dL (8.6-10.3); Carbon Dioxide 24 mEq/L (23-29); Chloride 101 mEq/L (98-107); Ethanol 170 mg/dL (Less than 10); Glucose 137 mg/dL (70-105); Osmolality,Calculated 283 (280-300); Potassium 3.6 mEq/L (3.5-5.1); Salicylate < 2.5 mg/dL (15.0-30.0); Sodium 136 mEq/L (136-145); eGFR For African Americans > 60 (> 60); eGFR For Non-African Americans > 60 (> 60)
[2019-09-03 00:31] LABS: Bilirubin,Urine Negative (Negative); Blood,Urine Negative (Negative); Clarity,Urine Clear (Clear); Color,Urine Yellow (Yellow); Glucose,Urine (UA) Normal (Normal); Ketones,Urine Negative (Negative); Leukocyte Esterase,Urine Negative (Negative); Nitrite,Urine Negative (Negative); Protein,Urine Negative (Neg-Trace); Specific Gravity,Urine 1.012 (1.010-1.025); Urobilinogen,Urine Normal (Normal)
[2019-09-03 00:40] LABS: Amphetamine Screen,Urine Negative ng/mL (Cutoff=1000); Barbiturate Screen,Urine Negative ng/mL (Cutoff=200); Benzodiazepines Screen,Urine Negative ng/mL (Cutoff=200); Cannabinoid Screen,Urine Negative ng/mL (Cutoff = 50); Cocaine Screen,Urine Negative ng/mL (Cutoff= 300); Opiate Screen,Urine Negative ng/mL (Cutoff=300); Phencyclidine Screen,Urine Negative ng/mL (Cutoff=25)
[2019-09-03] MEDS ORDERED: traZODone 50 MG TABLET PO PRN (06:01)
[2019-09-03] MEDS ORDERED: *HR* LORazepam 1 MG TABLET PO PRN (06:01)
[2019-09-03] MEDS ORDERED: *HR* LORazepam 2 MG/ML VIAL IM PRN (06:01)
[2019-09-03] MEDS ORDERED: hydrOXYzine pamoate 25 MG CAPSULE PO PRN (06:01)
[2019-09-03] MEDS ORDERED: MOM Conc 10 ML UD.LIQ PO PRN (06:01)
[2019-09-03] MEDS ORDERED: Mag Hydrox/Al Hydrox/Simeth 30 ML UDC PO PRN (06:01)
[2019-09-03] MEDS ORDERED: Haloperidol Lactate 5 MG/ML VIAL IM PRN (06:01)
[2019-09-03] MEDS: Vitamin B Complex/Vit C/Vit E 1 EACH TABLET PO SCH (10:37)
[2019-09-04] MEDS: Vitamin B Complex/Vit C/Vit E 1 EACH TABLET PO SCH (09:03)
[2019-09-05] MEDS: Vitamin B Complex/Vit C/Vit E 1 EACH TABLET PO SCH (08:32)
[2019-09-05] MEDS: Acetaminophen 325 MG TABLET PO PRN (17:26)
[2019-09-06] MEDS: Vitamin B Complex/Vit C/Vit E 1 EACH TABLET PO SCH (08:16)
[2019-09-07] MEDS: Vitamin B Complex/Vit C/Vit E 1 EACH TABLET PO SCH (09:06)
[2019-09-07] MEDS: Acetaminophen 325 MG TABLET PO PRN (17:06)
[2019-09-08] MEDS: Vitamin B Complex/Vit C/Vit E 1 EACH TABLET PO SCH (08:45)
[2019-09-08 09:25] VITALS: BP 128/79
== END 2019-09-08 12:45 | disposition home or self-care (01) | DRG 750 ==
LOC: EMEROOARM 22:42 → SUATTDRO 09-03 05:38 → 1ANU 09-03 05:38
PROVIDERS: ADMIT Psychiatry & Neurology Psychiatry; ATTEND Psychiatry & Neurology Psychiatry

== ENCOUNTER 2019-10-10 05:33 | Observation (INO) ==
[2019-10-10] MEDS ORDERED: Naloxone 0.4 MG/ML INJ IVP PRN (10:11)
[2019-10-10] MEDS ORDERED: Ondansetron 4 MG/2 ML VIAL IVP PRN (10:11)
[2019-10-10] MEDS: 0.9 % Sodium Chloride 1,000 ML IVC SCH ×2 (11:19→23:17)
[2019-10-11 06:47] LABS: Basophils % 0.7 %; Eosinophils # 0.3 K/mcL (0.0-0.6); Hematocrit 42.5 % (37.5-50.1); Hemoglobin 14.6 g/dL (12.9-16.9); Immature Granulocytes % 0.2 % (0-4); Lymphocytes # 2.5 K/mcL (0.6-4.6); Lymphocytes % 40.5 %; Mean Corpuscular HGB Conc 34.4 g/dL (31.6-35.5); Mean Corpuscular Hemoglobin 30.8 pg (28.0-33.3); Mean Corpuscular Volume 89.7 fL (83.0-100.0); Mean Platelet Volume 10.4 fL (9.4-12.4); Monocytes # 0.6 K/mcL (0.0-1.3); Monocytes % 10.4 %; Neutrophils # 2.6 K/mcL (1.6-8.9); Platelet Count 275 K/mcL (140-400); Red Blood Count 4.74 M/mcL (4.19-5.50); Red Cell Distribution Width 13.3 % (11.5-14.5); Segmented Neutrophils % 43.2 %; White Blood Count 6.1 K/mcL (4.3-11.1)
[2019-10-11 07:11] LABS: BUN/Creatinine Ratio 10 (6-26); Blood Urea Nitrogen 11 mg/dL (6-20); Calcium 9.2 mg/dL (8.6-10.3); Carbon Dioxide 24 mEq/L (23-29); Chloride 110 mEq/L (98-107); Glucose 98 mg/dL (70-105); Magnesium 2.1 mg/dL (1.6-2.6); Osmolality,Calculated 293 (280-300); Potassium 4.2 mEq/L (3.5-5.1); Sodium 142 mEq/L (136-145); eGFR For African Americans > 60 (> 60); eGFR For Non-African Americans > 60 (> 60)
[2019-10-11 09:47] VITALS: BP 133/88
== END 2019-10-11 10:53 ==
LOC: CDU → SUATTDRO 09:26
PROVIDERS: ADMIT Internal Medicine; ATTEND Internal Medicine

== ENCOUNTER 2019-10-11 10:57 | Inpatient (IN) ==
[2019-10-11] MEDS ORDERED: MOM Conc 10 ML UD.LIQ PO PRN (11:13)
[2019-10-11] MEDS ORDERED: *HR* LORazepam 2 MG/ML VIAL IM PRN (11:13)
[2019-10-11] MEDS ORDERED: Haloperidol Lactate 5 MG/ML VIAL IM PRN (11:13)
[2019-10-11] MEDS ORDERED: *HR* LORazepam 1 MG TABLET PO PRN (11:13)
[2019-10-11] MEDS: Nicotine 21 MG PATCH.TD24 TD SCH (14:58)
[2019-10-11] MEDS: traZODone 50 MG TABLET PO PRN (21:15)
[2019-10-12] MEDS: Nicotine 21 MG PATCH.TD24 TD SCH (09:17)
[2019-10-12] MEDS: Acetaminophen 325 MG TABLET PO PRN (16:05)
[2019-10-12] MEDS: traZODone 50 MG TABLET PO PRN (21:35)
[2019-10-13] MEDS: Nicotine 21 MG PATCH.TD24 TD SCH (08:08)
[2019-10-13] MEDS: Acetaminophen 325 MG TABLET PO PRN (15:03)
[2019-10-13] MEDS: traZODone 50 MG TABLET PO PRN (21:04)
[2019-10-14] MEDS: Nicotine 21 MG PATCH.TD24 TD SCH (09:15)
[2019-10-14] MEDS: Acetaminophen 325 MG TABLET PO PRN (18:41)
[2019-10-14] MEDS: traZODone 50 MG TABLET PO PRN (20:37)
[2019-10-15] MEDS: Mag Hydrox/Al Hydrox/Simeth 30 ML UDC PO PRN ×2 (01:25→13:26)
[2019-10-15] MEDS: Nicotine 21 MG PATCH.TD24 TD SCH (08:45)
[2019-10-15] MEDS: Acetaminophen 325 MG TABLET PO PRN (14:57)
[2019-10-15] MEDS: hydrOXYzine pamoate 25 MG CAPSULE PO PRN ×2 (18:16→20:36)
[2019-10-15] MEDS: traZODone 50 MG TABLET PO PRN (20:36)
[2019-10-16] MEDS: Nicotine 21 MG PATCH.TD24 TD SCH (08:46)
[2019-10-16] MEDS: Acetaminophen 325 MG TABLET PO PRN (10:58)
[2019-10-16] MEDS: hydrOXYzine pamoate 25 MG CAPSULE PO PRN ×2 (12:51→20:56)
[2019-10-16] MEDS: Mag Hydrox/Al Hydrox/Simeth 30 ML UDC PO PRN (14:16)
[2019-10-16] MEDS: traZODone 50 MG TABLET PO PRN (20:56)
[2019-10-17] MEDS: Nicotine 21 MG PATCH.TD24 TD SCH (09:16)
[2019-10-17] MEDS: hydrOXYzine pamoate 25 MG CAPSULE PO PRN ×2 (10:26→21:02)
[2019-10-17] MEDS: Acetaminophen 325 MG TABLET PO PRN (17:13)
[2019-10-17] MEDS: traZODone 50 MG TABLET PO PRN (21:02)
[2019-10-18 08:06] VITALS: BP 120/77
[2019-10-18] MEDS: Nicotine 21 MG PATCH.TD24 TD SCH (08:43)
[2019-10-18] MEDS: Acetaminophen 325 MG TABLET PO PRN (11:23)
== END 2019-10-18 19:10 | disposition home or self-care (01) | DRG 750 ==
LOC: 1ANU 10:57
PROVIDERS: ADMIT Psychiatry & Neurology Psychiatry; ATTEND Psychiatry & Neurology Psychiatry

== ENCOUNTER 2019-11-24 20:36 | Inpatient (IN) ==
[2019-11-24 21:18] LABS: Basophils % 0.1 %; Hematocrit 43.1 % (37.5-50.1); Hemoglobin 15.1 g/dL (12.9-16.9); Immature Granulocytes % 0.7 % (0-4); Lymphocytes % 11.9 %; Mean Corpuscular Hemoglobin 31.2 pg (28.0-33.3); Mean Platelet Volume 10.1 fL (9.4-12.4); Monocytes # 1.4 K/mcL (0.0-1.3); Monocytes % 8.2 %; Neutrophils # 13.2 K/mcL (1.6-8.9); Platelet Count 398 K/mcL (140-400); Red Blood Count 4.84 M/mcL (4.19-5.50); Red Cell Distribution Width 12.9 % (11.5-14.5); Segmented Neutrophils % 79.1 %; White Blood Count 16.8 K/mcL (4.3-11.1)
[2019-11-24 21:21] LABS: Bilirubin,Urine Negative (Negative); Blood,Urine Negative (Negative); Clarity,Urine Clear (Clear); Color,Urine Yellow (Yellow); Glucose,Urine (UA) Normal (Normal); Ketones,Urine Negative (Negative); Leukocyte Esterase,Urine Small (Negative); Nitrite,Urine Positive (Negative); Protein,Urine Negative (Neg-Trace); Specific Gravity,Urine 1.019 (1.010-1.025); Urobilinogen,Urine Normal (Normal)
[2019-11-24 21:22] LABS: Amphetamine Screen,Urine Negative ng/mL (Cutoff=1000); Bacteria,Urine Many per hpf (None-Few); Barbiturate Screen,Urine Negative ng/mL (Cutoff=200); Benzodiazepines Screen,Urine Negative ng/mL (Cutoff=200); Cannabinoid Screen,Urine Negative ng/mL (Cutoff = 50); Cocaine Screen,Urine Negative ng/mL (Cutoff= 300); Hyaline Casts,Urine None Seen per lpf (None-Few); Opiate Screen,Urine Negative ng/mL (Cutoff=300); Phencyclidine Screen,Urine Negative ng/mL (Cutoff=25); Squamous Epithelial Cell,Urine None Seen per lpf (None-Few); WBC,Urine 15-30 per hpf (0-3)
[2019-11-24 21:35] LABS: Acetaminophen < 10 mcg/mL (10-20); BUN/Creatinine Ratio 14 (6-26); Blood Urea Nitrogen 13 mg/dL (6-20); Calcium 9.6 mg/dL (8.6-10.3); Carbon Dioxide 21 mEq/L (23-29); Chloride 105 mEq/L (98-107); Ethanol < 10 mg/dL (Less than 10); Glucose 182 mg/dL (70-105); Osmolality,Calculated 287 (280-300); Potassium 4.1 mEq/L (3.5-5.1); Salicylate < 2.5 mg/dL (15.0-30.0); Sodium 136 mEq/L (136-145); eGFR For African Americans > 60 (> 60); eGFR For Non-African Americans > 60 (> 60)
[2019-11-24] MEDS ORDERED: cephALEXin 500 MG CAPSULE PO STA ×2 (21:50→23:47)
[2019-11-24] MEDS ORDERED: haloperidoL 5 MG TABLET PO PRN (22:39)
[2019-11-24] MEDS ORDERED: Haloperidol Lactate 5 MG/ML VIAL IM PRN (22:39)
[2019-11-24] MEDS ORDERED: MOM Conc 10 ML UD.LIQ PO PRN (22:39)
[2019-11-24] MEDS ORDERED: *HR* LORazepam 2 MG/ML VIAL IM PRN (22:39)
[2019-11-24] MEDS ORDERED: *HR* LORazepam 1 MG TABLET PO PRN (22:39)
[2019-11-24] MEDS: hydrOXYzine pamoate 25 MG CAPSULE PO PRN (23:53)
[2019-11-24] MEDS: traZODone 50 MG TABLET PO PRN (23:53)
[2019-11-25] MEDS: Nicotine 21 MG PATCH.TD24 TD SCH (08:35)
[2019-11-25] MEDS: Acetaminophen 325 MG TABLET PO PRN (19:45)
[2019-11-25] MEDS: hydrOXYzine pamoate 25 MG CAPSULE PO PRN (20:23)
[2019-11-25] MEDS: traZODone 50 MG TABLET PO PRN (20:23)
[2019-11-26] MEDS: Acetaminophen 325 MG TABLET PO PRN (09:27)
[2019-11-26] MEDS: Nicotine 21 MG PATCH.TD24 TD SCH (09:28)
[2019-11-26] MEDS: hydrOXYzine pamoate 25 MG CAPSULE PO PRN (20:21)
[2019-11-26] MEDS: traZODone 50 MG TABLET PO PRN (20:21)
[2019-11-27] MEDS: Nicotine 21 MG PATCH.TD24 TD SCH (08:38)
[2019-11-27] MEDS: DEUTETRABENAZINE 6 MG PO SCH ×2 (13:53→20:52)
[2019-11-27] MEDS: hydrOXYzine pamoate 25 MG CAPSULE PO PRN ×2 (14:22→20:49)
[2019-11-27] MEDS: Acetaminophen 325 MG TABLET PO PRN (14:22)
[2019-11-27] MEDS: traZODone 50 MG TABLET PO PRN (20:49)
[2019-11-28] MEDS: Nicotine 21 MG PATCH.TD24 TD SCH (08:51)
[2019-11-28] MEDS: DEUTETRABENAZINE 6 MG PO SCH ×2 (09:06→20:15)
[2019-11-28] MEDS: Acetaminophen 325 MG TABLET PO PRN (19:27)
[2019-11-28] MEDS: hydrOXYzine pamoate 25 MG CAPSULE PO PRN (20:14)
[2019-11-28] MEDS: traZODone 50 MG TABLET PO PRN (20:14)
[2019-11-29] MEDS: Nicotine 21 MG PATCH.TD24 TD SCH (10:34)
[2019-11-29] MEDS: DEUTETRABENAZINE 6 MG PO SCH ×2 (10:35→20:29)
[2019-11-29] MEDS: hydrOXYzine pamoate 25 MG CAPSULE PO PRN ×2 (12:21→20:28)
[2019-11-29] MEDS: traZODone 50 MG TABLET PO PRN (20:28)
[2019-11-30] MEDS: Nicotine 21 MG PATCH.TD24 TD SCH (08:30)
[2019-11-30] MEDS: hydrOXYzine pamoate 25 MG CAPSULE PO PRN ×2 (12:12→20:26)
[2019-11-30] MEDS: Acetaminophen 325 MG TABLET PO PRN ×2 (12:12→20:27)
[2019-11-30] MEDS: DEUTETRABENAZINE 6 MG PO SCH ×2 (12:26→20:25)
[2019-11-30] MEDS: traZODone 50 MG TABLET PO PRN (20:27)
[2019-12-01] MEDS: Nicotine 21 MG PATCH.TD24 TD SCH (08:44)
[2019-12-01] MEDS: DEUTETRABENAZINE 6 MG PO SCH ×3 (08:44→20:05)
[2019-12-01] MEDS: Acetaminophen 325 MG TABLET PO PRN ×2 (11:19→20:00)
[2019-12-01] MEDS: hydrOXYzine pamoate 25 MG CAPSULE PO PRN ×2 (11:20→20:00)
[2019-12-01] MEDS: traZODone 50 MG TABLET PO PRN (20:00)
[2019-12-02] MEDS: Nicotine 21 MG PATCH.TD24 TD SCH (08:36)
[2019-12-02] MEDS: DEUTETRABENAZINE 6 MG PO SCH ×2 (08:39→20:29)
[2019-12-02] MEDS: hydrOXYzine pamoate 25 MG CAPSULE PO PRN ×2 (11:33→20:28)
[2019-12-02] MEDS: Acetaminophen 325 MG TABLET PO PRN ×2 (12:05→21:09)
[2019-12-02] MEDS: traZODone 50 MG TABLET PO PRN (20:28)
[2019-12-03] MEDS: Nicotine 21 MG PATCH.TD24 TD SCH (08:45)
[2019-12-03] MEDS: DEUTETRABENAZINE 6 MG PO SCH ×2 (08:47→20:05)
[2019-12-03] MEDS: hydrOXYzine pamoate 25 MG CAPSULE PO PRN (20:04)
[2019-12-03] MEDS: Acetaminophen 325 MG TABLET PO PRN (20:04)
[2019-12-03] MEDS: traZODone 50 MG TABLET PO PRN (20:05)
[2019-12-04] MEDS: Nicotine 21 MG PATCH.TD24 TD SCH (09:17)
[2019-12-04] MEDS: DEUTETRABENAZINE 6 MG PO SCH ×2 (09:19→20:04)
[2019-12-04] MEDS: hydrOXYzine pamoate 25 MG CAPSULE PO PRN ×2 (11:38→20:04)
[2019-12-04] MEDS: Acetaminophen 325 MG TABLET PO PRN (16:20)
[2019-12-04] MEDS: traZODone 50 MG TABLET PO PRN (20:04)
[2019-12-05] MEDS: DEUTETRABENAZINE 6 MG PO SCH ×2 (09:07→20:04)
[2019-12-05] MEDS: hydrOXYzine pamoate 25 MG CAPSULE PO PRN ×2 (09:08→20:03)
[2019-12-05] MEDS: Acetaminophen 325 MG TABLET PO PRN ×2 (09:08→20:03)
[2019-12-05] MEDS: Nicotine 21 MG PATCH.TD24 TD SCH (09:11)
[2019-12-05] MEDS: Mag Hydrox/Al Hydrox/Simeth 30 ML UDC PO PRN (10:12)
[2019-12-05] MEDS: traZODone 50 MG TABLET PO PRN (20:03)
[2019-12-06] MEDS: Nicotine 21 MG PATCH.TD24 TD SCH (08:22)
[2019-12-06] MEDS: DEUTETRABENAZINE 6 MG PO SCH ×2 (08:23→20:42)
[2019-12-06] MEDS: Acetaminophen 325 MG TABLET PO PRN ×2 (08:24→15:44)
[2019-12-06] MEDS: hydrOXYzine pamoate 25 MG CAPSULE PO PRN ×3 (08:24→20:42)
[2019-12-06] MEDS: traZODone 50 MG TABLET PO PRN (20:42)
[2019-12-07] MEDS: Nicotine 21 MG PATCH.TD24 TD SCH (08:33)
[2019-12-07] MEDS: Acetaminophen 325 MG TABLET PO PRN ×2 (08:36→16:05)
[2019-12-07] MEDS: hydrOXYzine pamoate 25 MG CAPSULE PO PRN ×3 (08:36→20:15)
[2019-12-07] MEDS: DEUTETRABENAZINE 6 MG PO SCH ×2 (08:37→20:16)
[2019-12-07] MEDS: Mag Hydrox/Al Hydrox/Simeth 30 ML UDC PO PRN (09:21)
[2019-12-07] MEDS: traZODone 50 MG TABLET PO PRN (20:15)
[2019-12-08] MEDS: Nicotine 21 MG PATCH.TD24 TD SCH (08:34)
[2019-12-08] MEDS: hydrOXYzine pamoate 25 MG CAPSULE PO PRN ×3 (08:39→20:12)
[2019-12-08] MEDS: Acetaminophen 325 MG TABLET PO PRN ×2 (08:39→16:14)
[2019-12-08] MEDS: DEUTETRABENAZINE 6 MG PO SCH ×2 (08:40→20:11)
[2019-12-08] MEDS: traZODone 50 MG TABLET PO PRN (20:12)
[2019-12-09] MEDS: Nicotine 21 MG PATCH.TD24 TD SCH (08:41)
[2019-12-09] MEDS: Acetaminophen 325 MG TABLET PO PRN ×3 (08:42→20:45)
[2019-12-09] MEDS: hydrOXYzine pamoate 25 MG CAPSULE PO PRN ×3 (08:42→20:07)
[2019-12-09] MEDS: DEUTETRABENAZINE 6 MG PO SCH ×2 (08:42→20:07)
[2019-12-09] MEDS: traZODone 50 MG TABLET PO PRN (20:07)
[2019-12-10] MEDS: Nicotine 21 MG PATCH.TD24 TD SCH (09:30)
[2019-12-10] MEDS: DEUTETRABENAZINE 6 MG PO SCH ×2 (09:30→20:10)
[2019-12-10] MEDS: Acetaminophen 325 MG TABLET PO PRN ×2 (09:31→16:15)
[2019-12-10] MEDS: hydrOXYzine pamoate 25 MG CAPSULE PO PRN ×2 (09:31→16:15)
[2019-12-10] MEDS: Mag Hydrox/Al Hydrox/Simeth 30 ML UDC PO PRN (10:00)
[2019-12-10] MEDS: traZODone 50 MG TABLET PO PRN (20:10)
[2019-12-11] MEDS: hydrOXYzine pamoate 25 MG CAPSULE PO PRN ×3 (02:38→18:00)
[2019-12-11] MEDS: Acetaminophen 325 MG TABLET PO PRN ×3 (02:38→18:00)
[2019-12-11] MEDS: Nicotine 21 MG PATCH.TD24 TD SCH (08:47)
[2019-12-11] MEDS: DEUTETRABENAZINE 6 MG PO SCH ×2 (08:51→20:27)
[2019-12-11] MEDS: Mag Hydrox/Al Hydrox/Simeth 30 ML UDC PO PRN ×2 (09:38→16:27)
[2019-12-11] MEDS: traZODone 50 MG TABLET PO PRN (20:26)
[2019-12-11 23:46] LABS: RBC,Urine 0-3 per hpf (0-3)
[2019-12-12] MEDS: Nicotine 21 MG PATCH.TD24 TD SCH (09:09)
[2019-12-12] MEDS: DEUTETRABENAZINE 6 MG PO SCH (09:09)
[2019-12-12] MEDS: Acetaminophen 325 MG TABLET PO PRN (09:11)
[2019-12-12] MEDS: hydrOXYzine pamoate 25 MG CAPSULE PO PRN (09:11)
[2019-12-12 09:56] VITALS: BP 128/80
== END 2019-12-12 17:50 | disposition other institution (70) ==
LOC: EMEROOARM 20:36 → 1ANU 20:36 → SUATTDRO 22:39 → 1ANU 23:27
PROVIDERS: ADMIT Psychiatry & Neurology Psychiatry; ATTEND Psychiatry & Neurology Psychiatry

== ENCOUNTER 2019-12-29 18:11 | Inpatient (IN) ==
[2019-12-29] MEDS ORDERED: Aspirin 81 MG TAB.CHEW PO STA (18:26)
[2019-12-29 18:39] LABS: Bilirubin,Urine Negative (Negative); Blood,Urine Negative (Negative); Clarity,Urine Clear (Clear); Color,Urine Yellow (Yellow); Glucose,Urine (UA) Normal (Normal); Ketones,Urine Negative (Negative); Leukocyte Esterase,Urine Small (Negative); Nitrite,Urine Negative (Negative); Protein,Urine Negative (Neg-Trace); Specific Gravity,Urine 1.017 (1.010-1.025); Urobilinogen,Urine Normal (Normal)
[2019-12-29 18:41] LABS: Bacteria,Urine None Seen per hpf (None-Few); Hyaline Casts,Urine None Seen per lpf (None-Few); RBC,Urine 0-3 per hpf (0-3); Squamous Epithelial Cell,Urine Few per lpf (None-Few)
[2019-12-29 19:01] LABS: Basophils % 0.3 %; Eosinophils # 0.3 K/mcL (0.0-0.6); Eosinophils % 3.5 %; Hematocrit 38.2 % (37.5-50.1); Hemoglobin 13.1 g/dL (12.9-16.9); Immature Granulocytes % 0.2 % (0-4); Lymphocytes # 2.9 K/mcL (0.6-4.6); Lymphocytes % 30.3 %; Mean Corpuscular HGB Conc 34.3 g/dL (31.6-35.5); Mean Corpuscular Hemoglobin 30.6 pg (28.0-33.3); Mean Corpuscular Volume 89.3 fL (83.0-100.0); Mean Platelet Volume 10.2 fL (9.4-12.4); Monocytes # 1.2 K/mcL (0.0-1.3); Monocytes % 12.3 %; Neutrophils # 5.1 K/mcL (1.6-8.9); Platelet Count 315 K/mcL (140-400); Red Blood Count 4.28 M/mcL (4.19-5.50); Red Cell Distribution Width 12.7 % (11.5-14.5); Segmented Neutrophils % 53.4 %; White Blood Count 9.6 K/mcL (4.3-11.1)
[2019-12-29 19:21] LABS: BUN/Creatinine Ratio 15 (6-26); Blood Urea Nitrogen 14 mg/dL (6-20); Calcium 9.2 mg/dL (8.6-10.3); Carbon Dioxide 25 mEq/L (23-29); Chloride 104 mEq/L (98-107); Ethanol < 10 mg/dL (Less than 10); Glucose 151 mg/dL (70-105); Osmolality,Calculated 285 (280-300); Potassium 3.6 mEq/L (3.5-5.1); Sodium 136 mEq/L (136-145); eGFR For African Americans > 60 (> 60); eGFR For Non-African Americans > 60 (> 60)
[2019-12-29 19:23] LABS: Amphetamine Screen,Urine Positive ng/mL (Cutoff=1000); Barbiturate Screen,Urine Negative ng/mL (Cutoff=200); Benzodiazepines Screen,Urine Negative ng/mL (Cutoff=200); Cannabinoid Screen,Urine Negative ng/mL (Cutoff = 50); Cocaine Screen,Urine Negative ng/mL (Cutoff= 300); Opiate Screen,Urine Negative ng/mL (Cutoff=300); Phencyclidine Screen,Urine Negative ng/mL (Cutoff=25)
[2019-12-29] MEDS ORDERED: Mag Hydrox/Al Hydrox/Simeth 30 ML UDC PO PRN (20:38)
[2019-12-29] MEDS ORDERED: Haloperidol Lactate 5 MG/ML VIAL IM PRN (20:38)
[2019-12-29] MEDS ORDERED: QUEtiapine Fumarate 25 MG TABLET PO PRN (20:38)
[2019-12-29] MEDS ORDERED: *HR* LORazepam 2 MG/ML VIAL IM PRN (20:38)
[2019-12-29] MEDS ORDERED: haloperidoL 5 MG TABLET PO PRN (20:38)
[2019-12-29] MEDS ORDERED: *HR* LORazepam 1 MG TABLET PO PRN (20:38)
[2019-12-29] MEDS ORDERED: MOM Conc 10 ML UD.LIQ PO PRN (20:38)
[2019-12-30] MEDS: ARIPiprazole 10 MG TABLET PO SCH (14:20)
[2019-12-30] MEDS: hydrOXYzine pamoate 25 MG CAPSULE PO PRN ×2 (15:26→20:47)
[2019-12-30] MEDS: Acetaminophen 325 MG TABLET PO PRN ×2 (15:26→20:47)
[2019-12-30] MEDS: traZODone 50 MG TABLET PO PRN (20:47)
[2019-12-31 06:40] LABS: Chol/HDL Ratio 4.5 (0-4.9)
[2019-12-31 08:18] LABS: Estimated Average Glucose 123 mg/dl
[2019-12-31] MEDS: ARIPiprazole 10 MG TABLET PO SCH (08:50)
[2019-12-31] MEDS: ARIPiprazole 5 MG TABLET PO SCH (10:43)
[2019-12-31] MEDS: hydrOXYzine pamoate 25 MG CAPSULE PO PRN (14:31)
[2019-12-31] MEDS: Acetaminophen 325 MG TABLET PO PRN (14:32)
[2019-12-31] MEDS: traZODone 50 MG TABLET PO PRN (20:50)
[2020-01-01] MEDS: ARIPiprazole 5 MG TABLET PO SCH (08:27)
[2020-01-01] MEDS: ARIPiprazole 10 MG TABLET PO SCH (08:27)
[2020-01-01] MEDS: Acetaminophen 325 MG TABLET PO PRN (08:30)
[2020-01-01] MEDS: hydrOXYzine pamoate 25 MG CAPSULE PO PRN ×2 (08:30→20:31)
[2020-01-01] MEDS: traZODone 50 MG TABLET PO PRN (20:32)
[2020-01-02] MEDS: ARIPiprazole 5 MG TABLET PO SCH (08:36)
[2020-01-02] MEDS: ARIPiprazole 10 MG TABLET PO SCH (08:36)
[2020-01-02] MEDS: hydrOXYzine pamoate 25 MG CAPSULE PO PRN (08:37)
[2020-01-02] MEDS: Acetaminophen 325 MG TABLET PO PRN (08:37)
[2020-01-02 08:49] VITALS: BP 158/81
== END 2020-01-02 12:00 | disposition home or self-care (01) | DRG 776 ==
LOC: 1ANU 18:11 → EMEROOARM 18:11 → 1ANU 22:15
PROVIDERS: ADMIT Psychiatry & Neurology Psychiatry; ATTEND Psychiatry & Neurology Psychiatry

== ENCOUNTER 2020-01-07 23:40 | Inpatient (IN) ==
[2020-01-08 00:11] LABS: Basophils # 0.1 K/mcL (0.0-0.2); Basophils % 0.4 %; Eosinophils # 0.2 K/mcL (0.0-0.6); Eosinophils % 1.7 %; Hematocrit 39.8 % (37.5-50.1); Hemoglobin 13.3 g/dL (12.9-16.9); Immature Granulocytes % 0.4 % (0-4); Lymphocytes % 21.2 %; Mean Corpuscular HGB Conc 33.4 g/dL (31.6-35.5); Mean Corpuscular Hemoglobin 30.6 pg (28.0-33.3); Mean Corpuscular Volume 91.5 fL (83.0-100.0); Mean Platelet Volume 10.5 fL (9.4-12.4); Monocytes # 1.5 K/mcL (0.0-1.3); Monocytes % 10.5 %; Neutrophils # 9.2 K/mcL (1.6-8.9); Platelet Count 369 K/mcL (140-400); Red Blood Count 4.35 M/mcL (4.19-5.50); Red Cell Distribution Width 13.4 % (11.5-14.5); Segmented Neutrophils % 65.8 %
[2020-01-08 00:19] LABS: Bilirubin,Urine Negative (Negative); Blood,Urine Negative (Negative); Clarity,Urine Clear (Clear); Color,Urine Yellow (Yellow); Glucose,Urine (UA) 100 mg/dL (Normal); Ketones,Urine Negative (Negative); Leukocyte Esterase,Urine Moderate (Negative); Nitrite,Urine Negative (Negative); Protein,Urine Negative (Neg-Trace); Specific Gravity,Urine 1.016 (1.010-1.025); Urobilinogen,Urine Normal (Normal)
[2020-01-08 00:21] LABS: Bacteria,Urine None Seen per hpf (None-Few); Hyaline Casts,Urine None Seen per lpf (None-Few); RBC,Urine 0-3 per hpf (0-3); Squamous Epithelial Cell,Urine Moderate per lpf (None-Few); WBC,Urine 15-30 per hpf (0-3)
[2020-01-08 00:28] LABS: Amphetamine Screen,Urine Positive ng/mL (Cutoff=1000); Barbiturate Screen,Urine Negative ng/mL (Cutoff=200); Benzodiazepines Screen,Urine Negative ng/mL (Cutoff=200); Cannabinoid Screen,Urine Negative ng/mL (Cutoff = 50); Cocaine Screen,Urine Negative ng/mL (Cutoff= 300); Opiate Screen,Urine Negative ng/mL (Cutoff=300); Phencyclidine Screen,Urine Negative ng/mL (Cutoff=25)
[2020-01-08 00:32] LABS: Acetaminophen < 10 mcg/mL (10-20); BUN/Creatinine Ratio 10 (6-26); Blood Urea Nitrogen 9 mg/dL (6-20); Calcium 9.4 mg/dL (8.6-10.3); Carbon Dioxide 21 mEq/L (23-29); Chloride 105 mEq/L (98-107); Ethanol < 10 mg/dL (Less than 10); Glucose 215 mg/dL (70-105); Osmolality,Calculated 287 (280-300); Potassium 3.8 mEq/L (3.5-5.1); Salicylate < 2.5 mg/dL (15.0-30.0); Sodium 136 mEq/L (136-145); eGFR For African Americans > 60 (> 60); eGFR For Non-African Americans > 60 (> 60)
[2020-01-08] MEDS ORDERED: *HR* LORazepam 2 MG/ML VIAL IM PRN (03:28)
[2020-01-08] MEDS ORDERED: Mag Hydrox/Al Hydrox/Simeth 30 ML UDC PO PRN (03:28)
[2020-01-08] MEDS ORDERED: Haloperidol Lactate 5 MG/ML VIAL IM PRN (03:28)
[2020-01-08] MEDS: hydrOXYzine pamoate 25 MG CAPSULE PO PRN ×2 (06:14→20:14)
[2020-01-08] MEDS: *HR* LORazepam 1 MG TABLET PO PRN ×2 (10:26→23:46)
[2020-01-08] MEDS: haloperidoL 5 MG TABLET PO PRN ×2 (10:26→23:46)
[2020-01-08] MEDS: ARIPiprazole 5 MG TABLET PO SCH (10:28)
[2020-01-08] MEDS: ARIPiprazole 10 MG TABLET PO SCH (10:31)
[2020-01-08] MEDS: DEUTETRABENAZINE 6 MG PO SCH ×2 (10:34→20:17)
[2020-01-08] MEDS: ARIPIPRAZOLE 400 MG IM SCH ×2 (10:34→18:21)
[2020-01-08] MEDS: Acetaminophen 325 MG TABLET PO PRN (18:09)
[2020-01-08] MEDS: traZODone 50 MG TABLET PO PRN (20:14)
[2020-01-09] MEDS: ARIPiprazole 5 MG TABLET PO SCH (09:07)
[2020-01-09] MEDS: ARIPiprazole 10 MG TABLET PO SCH (09:07)
[2020-01-09] MEDS: DEUTETRABENAZINE 6 MG PO SCH ×2 (09:09→21:00)
[2020-01-09] MEDS: Acetaminophen 325 MG TABLET PO PRN (20:16)
[2020-01-09] MEDS: traZODone 50 MG TABLET PO PRN (20:17)
[2020-01-09] MEDS: hydrOXYzine pamoate 25 MG CAPSULE PO PRN (20:17)
[2020-01-10] MEDS: ARIPiprazole 10 MG TABLET PO SCH (08:12)
[2020-01-10] MEDS: ARIPiprazole 5 MG TABLET PO SCH (08:12)
[2020-01-10] MEDS: DEUTETRABENAZINE 6 MG PO SCH (08:14)
[2020-01-10] MEDS: Acetaminophen 325 MG TABLET PO PRN ×2 (12:56→20:29)
[2020-01-10] MEDS: hydrOXYzine pamoate 25 MG CAPSULE PO PRN ×2 (12:56→20:29)
[2020-01-10] MEDS: traZODone 50 MG TABLET PO PRN (20:30)
[2020-01-11] MEDS: hydrOXYzine pamoate 25 MG CAPSULE PO PRN ×3 (00:03→20:43)
[2020-01-11] MEDS: DEUTETRABENAZINE 6 MG PO SCH ×3 (00:21→20:46)
[2020-01-11] MEDS: ARIPiprazole 5 MG TABLET PO SCH (08:23)
[2020-01-11] MEDS: ARIPiprazole 10 MG TABLET PO SCH (08:23)
[2020-01-11] MEDS: Acetaminophen 325 MG TABLET PO PRN (15:35)
[2020-01-11 16:01] LABS: Bilirubin,Urine Negative (Negative); Blood,Urine Negative (Negative); Clarity,Urine Clear (Clear); Color,Urine Yellow (Yellow); Glucose,Urine (UA) Normal (Normal); Ketones,Urine Negative (Negative); Leukocyte Esterase,Urine Trace (Negative); Nitrite,Urine Negative (Negative); PH,Urine 7.5 pH Units (5.0-8.0); Protein,Urine Negative (Neg-Trace); Specific Gravity,Urine 1.014 (1.010-1.025); Urobilinogen,Urine Normal (Normal)
[2020-01-11 16:02] LABS: Bacteria,Urine None Seen per hpf (None-Few); Hyaline Casts,Urine None Seen per lpf (None-Few); RBC,Urine 0-3 per hpf (0-3); Squamous Epithelial Cell,Urine Few per lpf (None-Few); WBC,Urine 0-3 per hpf (0-3)
[2020-01-11] MEDS: traZODone 50 MG TABLET PO PRN (20:43)
[2020-01-12] MEDS: traZODone 50 MG TABLET PO PRN (01:52)
[2020-01-12] MEDS: hydrOXYzine pamoate 25 MG CAPSULE PO PRN (01:52)
[2020-01-12] MEDS: ARIPiprazole 10 MG TABLET PO SCH (08:37)
[2020-01-12] MEDS: ARIPiprazole 5 MG TABLET PO SCH (08:37)
[2020-01-12] MEDS: DEUTETRABENAZINE 6 MG PO SCH (08:38)
[2020-01-12 08:47] VITALS: BP 125/78
== END 2020-01-12 15:00 | disposition home or self-care (01) ==
LOC: EMEROOARM 23:40 → 1ANU 01-08 02:59 → SUATTDRO 01-08 02:59 → 1ANU 01-08 03:30
PROVIDERS: ADMIT Psychiatry & Neurology Psychiatry; ATTEND Psychiatry & Neurology Psychiatry

== ENCOUNTER 2020-03-02 02:16 | Observation (INO) ==
[2020-03-02] MEDS ORDERED: Clindamycin 600 MG/50 ML 600 MG/50 ML IV.SOLN IVPB ONE (03:43)
[2020-03-02] MEDS ORDERED: Doxycycline 100 MG in 0.9 % Sodium Chloride Mini Bag 100 ML IVPB ONE (03:44)
[2020-03-02 04:28] LABS: Basophils % 0.3 %; Eosinophils # 0.4 K/mcL (0.0-0.6); Eosinophils % 3.2 %; Hematocrit 40.4 % (37.5-50.1); Hemoglobin 13.7 g/dL (12.9-16.9); Immature Granulocytes % 0.4 % (0-4); Lymphocytes # 2.1 K/mcL (0.6-4.6); Lymphocytes % 19.1 %; Mean Corpuscular HGB Conc 33.9 g/dL (31.6-35.5); Mean Corpuscular Hemoglobin 30.2 pg (28.0-33.3); Mean Platelet Volume 10.2 fL (9.4-12.4); Monocytes # 1.2 K/mcL (0.0-1.3); Monocytes % 10.7 %; Neutrophils # 7.3 K/mcL (1.6-8.9); Platelet Count 337 K/mcL (140-400); Red Blood Count 4.54 M/mcL (4.19-5.50); Red Cell Distribution Width 12.7 % (11.5-14.5); Segmented Neutrophils % 66.3 %; White Blood Count 11.1 K/mcL (4.3-11.1)
[2020-03-02 04:39] LABS: Estimated Average Glucose 117 mg/dl
[2020-03-02 04:51] LABS: BUN/Creatinine Ratio 9 (6-26); Blood Urea Nitrogen 9 mg/dL (6-20); C-Reactive Protein 28 mg/L (Less than 10); Calcium 9.1 mg/dL (8.6-10.3); Carbon Dioxide 23 mEq/L (23-29); Chloride 106 mEq/L (98-107); Glucose 130 mg/dL (70-105); Osmolality,Calculated 284 (280-300); Potassium 3.8 mEq/L (3.5-5.1); Sodium 137 mEq/L (136-145); eGFR For African Americans > 60 (> 60); eGFR For Non-African Americans > 60 (> 60)
[2020-03-02 04:52] LABS: Troponin I < 0.03 ng/mL (< 0.04)
[2020-03-02 05:23] LABS: Bilirubin,Urine Negative (Negative); Blood,Urine Negative (Negative); Clarity,Urine Cloudy (Clear); Color,Urine Yellow (Yellow); Glucose,Urine (UA) Normal (Normal); Ketones,Urine Negative (Negative); Leukocyte Esterase,Urine Moderate (Negative); Nitrite,Urine Negative (Negative); Protein,Urine Negative (Neg-Trace); Specific Gravity,Urine 1.023 (1.010-1.025); Urobilinogen,Urine Normal (Normal)
[2020-03-02 05:26] LABS: Bacteria,Urine Many per hpf (None-Few); Hyaline Casts,Urine None Seen per lpf (None-Few); RBC,Urine 0-3 per hpf (0-3); Squamous Epithelial Cell,Urine Few per lpf (None-Few); WBC,Urine TNTC per hpf (0-3)
[2020-03-02] MEDS ORDERED: Naloxone 0.4 MG/ML INJ IVP PRN (06:16)
[2020-03-02] MEDS: 0.9 % Sodium Chloride 1,000 ML IVC SCH ×2 (06:29→17:21)
[2020-03-02] MEDS ORDERED: *HR* LORazepam 2 MG/ML VIAL IVP PRN ×3 (07:06)
[2020-03-02] MEDS: Clindamycin 600 MG/50 ML 600 MG/50 ML IV.SOLN IVPB SCH ×2 (11:28→20:02)
[2020-03-02] MEDS: Thiamine (B-1) 100 MG, Folic Acid 1 MG, MVI, adult with vitamin K 10 ML in 0.9 % Sodi... IVPB SCH (11:32)
[2020-03-02] MEDS: *HR* Heparin 5,000 UNIT/ML VIAL SQ SCH (17:22)
[2020-03-02] MEDS: Doxycycline 100 MG CAPSULE PO SCH (20:02)
[2020-03-03 02:25] LABS: BUN/Creatinine Ratio 15 (6-26); Blood Urea Nitrogen 13 mg/dL (6-20); Calcium 8.6 mg/dL (8.6-10.3); Carbon Dioxide 22 mEq/L (23-29); Chloride 111 mEq/L (98-107); Glucose 119 mg/dL (70-105); Osmolality,Calculated 289 (280-300); Sodium 139 mEq/L (136-145); eGFR For African Americans > 60 (> 60); eGFR For Non-African Americans > 60 (> 60)
[2020-03-03] MEDS: Clindamycin 600 MG/50 ML 600 MG/50 ML IV.SOLN IVPB SCH ×3 (03:29→20:28)
[2020-03-03] MEDS: *HR* Heparin 5,000 UNIT/ML VIAL SQ SCH ×2 (05:49→18:02)
[2020-03-03] MEDS: Doxycycline 100 MG CAPSULE PO SCH ×2 (09:29→20:28)
[2020-03-03] MEDS: Folic Acid 1 MG TABLET PO SCH (09:29)
[2020-03-03] MEDS ORDERED: cefTRIAXone 1,000 MG in 0.9 % Sodium Chloride Mini Bag 100 ML IVPB SCH (12:00)
[2020-03-03] MEDS: Thiamine (B-1) 100 MG, Folic Acid 1 MG, MVI, adult with vitamin K 10 ML in 0.9 % Sodi... IVPB SCH (17:58)
[2020-03-03] MEDS ORDERED: hydrOXYzine pamoate 25 MG CAPSULE PO PRN (19:41)
[2020-03-03] MEDS: ARIPiprazole 10 MG TABLET PO SCH (20:27)
[2020-03-03] MEDS ORDERED: traZODone 50 MG TABLET PO SCH (21:00)
[2020-03-04] MEDS: Clindamycin 600 MG/50 ML 600 MG/50 ML IV.SOLN IVPB SCH (03:40)
[2020-03-04] MEDS: *HR* Heparin 5,000 UNIT/ML VIAL SQ SCH (06:00)
[2020-03-04 07:45] VITALS: BP 128/85
[2020-03-04] MEDS: Doxycycline 100 MG CAPSULE PO SCH (08:14)
[2020-03-04] MEDS: ARIPiprazole 10 MG TABLET PO SCH (08:15)
[2020-03-04] MEDS: Folic Acid 1 MG TABLET PO SCH (08:15)
== END 2020-03-04 11:08 | disposition home or self-care (01) ==
LOC: EMEROOARM 02:16 → 3BNU 02:16
PROVIDERS: ADMIT Internal Medicine; ATTEND Internal Medicine

== ENCOUNTER 2020-03-29 21:20 | Inpatient (IN) ==
[2020-03-29 22:03] LABS: White Blood Count 10.9 K/mcL (4.3-11.1)
[2020-03-29 22:04] LABS: Basophils # 0.1 K/mcL (0.0-0.2); Basophils % 0.5 %; Eosinophils # 0.5 K/mcL (0.0-0.6); Eosinophils % 4.3 %; Hematocrit 43.9 % (37.5-50.1); Immature Granulocytes % 0.4 % (0-4); Lymphocytes # 3.2 K/mcL (0.6-4.6); Lymphocytes % 29.2 %; Mean Corpuscular HGB Conc 34.2 g/dL (31.6-35.5); Mean Corpuscular Hemoglobin 31.2 pg (28.0-33.3); Mean Corpuscular Volume 91.3 fL (83.0-100.0); Mean Platelet Volume 10.7 fL (9.4-12.4); Monocytes # 0.9 K/mcL (0.0-1.3); Monocytes % 8.5 %; Neutrophils # 6.2 K/mcL (1.6-8.9); Platelet Count 319 K/mcL (140-400); Red Blood Count 4.81 M/mcL (4.19-5.50); Red Cell Distribution Width 13.2 % (11.5-14.5); Segmented Neutrophils % 57.1 %
[2020-03-29 22:07] LABS: Bacteria,Urine Few per hpf (None-Few); Bilirubin,Urine Negative (Negative); Blood,Urine Negative (Negative); Clarity,Urine Clear (Clear); Color,Urine Yellow (Yellow); Glucose,Urine (UA) Normal (Normal); Ketones,Urine Trace mg/dL (Negative); Leukocyte Esterase,Urine Trace (Negative); Mucus,Urine Few per lpf (None-Few); Nitrite,Urine Negative (Negative); Protein,Urine Trace mg/dL (Neg-Trace); RBC,Urine 0-3 per hpf (0-3); Specific Gravity,Urine > 1.030 (1.010-1.025); Squamous Epithelial Cell,Urine Few per hpf (None-Few)
[2020-03-29 22:13] LABS: Amphetamine Screen,Urine Negative ng/mL (Cutoff=1000); Barbiturate Screen,Urine Negative ng/mL (Cutoff=200); Benzodiazepines Screen,Urine Negative ng/mL (Cutoff=200); Cannabinoid Screen,Urine Negative ng/mL (Cutoff = 50); Cocaine Screen,Urine Negative ng/mL (Cutoff= 300); Opiate Screen,Urine Negative ng/mL (Cutoff=300); Phencyclidine Screen,Urine Negative ng/mL (Cutoff=25)
[2020-03-29 22:24] LABS: Acetaminophen < 10 mcg/mL (10-20); BUN/Creatinine Ratio 18 (6-26); Blood Urea Nitrogen 17 mg/dL (6-20); Calcium 9.1 mg/dL (8.6-10.3); Carbon Dioxide 25 mEq/L (23-29); Chloride 111 mEq/L (98-107); Creatine Kinase 110 Units/L (30-223); Ethanol 10 mg/dL (Less than 10); Glucose 114 mg/dL (70-105); Osmolality,Calculated 296 (280-300); Potassium 3.8 mEq/L (3.5-5.1); Salicylate < 2.5 mg/dL (15.0-30.0); Sodium 142 mEq/L (136-145); eGFR For African Americans > 60 (> 60); eGFR For Non-African Americans > 60 (> 60)
[2020-03-29] MEDS ORDERED: *HR* LORazepam 2 MG/ML VIAL IVP ONE (22:45)
[2020-03-29] MEDS ORDERED: 0.9 % Sodium Chloride 1,000 ML IV ONE (22:46)
[2020-03-30] MEDS ORDERED: Haloperidol Lactate 5 MG/ML VIAL IM PRN (00:16)
[2020-03-30] MEDS ORDERED: *HR* LORazepam 1 MG TABLET PO PRN (00:16)
[2020-03-30] MEDS ORDERED: *HR* LORazepam 2 MG/ML VIAL IM PRN (00:16)
[2020-03-30] MEDS ORDERED: MOM Conc 10 ML UD.LIQ PO PRN (00:16)
[2020-03-30] MEDS ORDERED: Mag Hydrox/Al Hydrox/Simeth 30 ML UDC PO PRN (00:16)
[2020-03-30] MEDS ORDERED: haloperidoL 5 MG TABLET PO PRN (00:16)
[2020-03-30] MEDS: hydrOXYzine pamoate 25 MG CAPSULE PO PRN ×2 (01:16→20:09)
[2020-03-30] MEDS: Acetaminophen 325 MG TABLET PO PRN ×2 (01:16→20:09)
[2020-03-30] MEDS: ARIPiprazole 10 MG TABLET PO SCH (09:18)
[2020-03-30] MEDS: Nicotine 21 MG PATCH.TD24 TD SCH (09:19)
[2020-03-30] MEDS: QUEtiapine Fumarate 25 MG TABLET PO PRN (20:09)
[2020-03-31] MEDS: Nicotine 21 MG PATCH.TD24 TD SCH (08:32)
[2020-03-31] MEDS: ARIPiprazole 5 MG TABLET PO SCH (08:33)
[2020-03-31] MEDS: ARIPiprazole 10 MG TABLET PO SCH (08:33)
[2020-03-31] MEDS: Acetaminophen 325 MG TABLET PO PRN (20:25)
[2020-03-31] MEDS: hydrOXYzine pamoate 25 MG CAPSULE PO PRN (20:25)
[2020-03-31] MEDS: QUEtiapine Fumarate 25 MG TABLET PO PRN (20:37)
[2020-04-01] MEDS: Nicotine 21 MG PATCH.TD24 TD SCH (08:44)
[2020-04-01] MEDS: ARIPiprazole 10 MG TABLET PO SCH (08:45)
[2020-04-01] MEDS: ARIPiprazole 5 MG TABLET PO SCH (08:46)
[2020-04-01] MEDS: Acetaminophen 325 MG TABLET PO PRN (21:13)
[2020-04-01] MEDS: hydrOXYzine pamoate 25 MG CAPSULE PO PRN (21:13)
[2020-04-01] MEDS: QUEtiapine Fumarate 25 MG TABLET PO PRN (21:13)
[2020-04-02] MEDS: ARIPiprazole 5 MG TABLET PO SCH (08:21)
[2020-04-02] MEDS: ARIPiprazole 10 MG TABLET PO SCH (08:21)
[2020-04-02] MEDS: Nicotine 21 MG PATCH.TD24 TD SCH (08:22)
[2020-04-02] MEDS ORDERED: ARIPIPRAZOLE 400 MG IM SCH (10:30)
[2020-04-02] MEDS: Acetaminophen 325 MG TABLET PO PRN (11:06)
[2020-04-02] MEDS: QUEtiapine Fumarate 25 MG TABLET PO PRN (20:38)
[2020-04-02] MEDS: hydrOXYzine pamoate 25 MG CAPSULE PO PRN (20:38)
[2020-04-03] MEDS: Nicotine 21 MG PATCH.TD24 TD SCH (09:01)
[2020-04-03] MEDS: ARIPiprazole 5 MG TABLET PO SCH (09:01)
[2020-04-03] MEDS: ARIPiprazole 10 MG TABLET PO SCH (09:01)
[2020-04-03 12:11] VITALS: BP 115/70
== END 2020-04-03 14:55 | disposition home or self-care (01) | DRG 750 ==
LOC: EMEROOARM 21:20 → SUATTDRO 03-30 00:13 → 1ANU 03-30 00:13
PROVIDERS: ADMIT Psychiatry & Neurology Psychiatry; ATTEND Psychiatry & Neurology Psychiatry

== ENCOUNTER 2020-05-15 18:07 | Inpatient (IN) ==
[2020-05-15 18:43] LABS: Bilirubin,Urine Negative (Negative); Blood,Urine Negative (Negative); Clarity,Urine Clear (Clear); Color,Urine Light-Yellow (Yellow); Glucose,Urine (UA) Normal (Normal); Ketones,Urine Negative (Negative); Leukocyte Esterase,Urine Negative (Negative); Nitrite,Urine Negative (Negative); Protein,Urine Negative (Neg-Trace); Urobilinogen,Urine Normal (Normal)
[2020-05-15 18:48] LABS: Amphetamine Screen,Urine Negative ng/mL (Cutoff=1000); Barbiturate Screen,Urine Negative ng/mL (Cutoff=200); Benzodiazepines Screen,Urine Negative ng/mL (Cutoff=200); Cannabinoid Screen,Urine Negative ng/mL (Cutoff = 50); Cocaine Screen,Urine Negative ng/mL (Cutoff= 300); Opiate Screen,Urine Negative ng/mL (Cutoff=300); Phencyclidine Screen,Urine Negative ng/mL (Cutoff=25)
[2020-05-15 19:17] LABS: Basophils # 0.1 K/mcL (0.0-0.2); Basophils % 0.5 %; Eosinophils # 0.6 K/mcL (0.0-0.6); Eosinophils % 5.5 %; Hematocrit 45.4 % (37.5-50.1); Hemoglobin 15.2 g/dL (12.9-16.9); Immature Granulocytes % 0.3 % (0-4); Lymphocytes # 2.7 K/mcL (0.6-4.6); Lymphocytes % 24.5 %; Mean Corpuscular HGB Conc 33.5 g/dL (31.6-35.5); Mean Corpuscular Hemoglobin 31.2 pg (28.0-33.3); Mean Corpuscular Volume 93.2 fL (83.0-100.0); Monocytes # 0.9 K/mcL (0.0-1.3); Monocytes % 8.2 %; Neutrophils # 6.6 K/mcL (1.6-8.9); Platelet Count 365 K/mcL (140-400); Red Blood Count 4.87 M/mcL (4.19-5.50); Red Cell Distribution Width 13.8 % (11.5-14.5); White Blood Count 10.9 K/mcL (4.3-11.1)
[2020-05-15 19:39] LABS: Acetaminophen < 10 mcg/mL (10-20); BUN/Creatinine Ratio 9 (6-26); Blood Urea Nitrogen 9 mg/dL (6-20); Calcium 9.4 mg/dL (8.6-10.3); Carbon Dioxide 27 mEq/L (23-29); Chloride 106 mEq/L (98-107); Ethanol < 10 mg/dL (Less than 10); Glucose 124 mg/dL (70-105); Osmolality,Calculated 290 (280-300); Potassium 4.4 mEq/L (3.5-5.1); Salicylate < 2.5 mg/dL (15.0-30.0); Sodium 140 mEq/L (136-145); eGFR For African Americans > 60 (> 60); eGFR For Non-African Americans > 60 (> 60)
[2020-05-16] MEDS ORDERED: MOM Conc 10 ML UD.LIQ PO PRN (00:01)
[2020-05-16] MEDS ORDERED: *HR* LORazepam 2 MG/ML VIAL IM PRN (00:01)
[2020-05-16] MEDS ORDERED: Haloperidol Lactate 5 MG/ML VIAL IM PRN (00:01)
[2020-05-16] MEDS: hydrOXYzine pamoate 25 MG CAPSULE PO PRN ×3 (00:34→20:18)
[2020-05-16] MEDS: traZODone 50 MG TABLET PO PRN ×2 (00:34→20:18)
[2020-05-16] MEDS: Nicotine 21 MG PATCH.TD24 TD SCH (08:16)
[2020-05-16] MEDS: ARIPiprazole 10 MG TABLET PO SCH (09:58)
[2020-05-16] MEDS ORDERED: (Aripiprazole [Abilify Maintena] 400 MG) IM SCH (10:00)
[2020-05-16] MEDS: Acetaminophen 325 MG TABLET PO PRN (16:16)
[2020-05-16] MEDS: *HR* LORazepam 1 MG TABLET PO PRN (17:20)
[2020-05-16] MEDS: haloperidoL 5 MG TABLET PO PRN (17:20)
[2020-05-17] MEDS: ARIPiprazole 10 MG TABLET PO SCH (08:52)
[2020-05-17] MEDS: Nicotine 21 MG PATCH.TD24 TD SCH (08:52)
[2020-05-17] MEDS ORDERED: (Aripiprazole [Abilify Maintena] 400 MG) IM SCH (10:00)
[2020-05-17] MEDS: hydrOXYzine pamoate 25 MG CAPSULE PO PRN ×2 (14:35→20:06)
[2020-05-17] MEDS: *HR* LORazepam 1 MG TABLET PO PRN (14:35)
[2020-05-17] MEDS: haloperidoL 5 MG TABLET PO PRN (14:35)
[2020-05-17] MEDS: Acetaminophen 325 MG TABLET PO PRN (18:04)
[2020-05-17] MEDS: traZODone 50 MG TABLET PO PRN (20:05)
[2020-05-18] MEDS: ARIPiprazole 10 MG TABLET PO SCH (09:06)
[2020-05-18] MEDS: Nicotine 21 MG PATCH.TD24 TD SCH (09:06)
[2020-05-18] MEDS: ARIPiprazole 5 MG TABLET PO SCH (10:26)
[2020-05-18] MEDS: *HR* LORazepam 1 MG TABLET PO PRN (10:40)
[2020-05-18] MEDS: haloperidoL 5 MG TABLET PO PRN (10:40)
[2020-05-18] MEDS: hydrOXYzine pamoate 25 MG CAPSULE PO PRN (20:32)
[2020-05-18] MEDS: traZODone 50 MG TABLET PO PRN (20:32)
[2020-05-18] MEDS: Acetaminophen 325 MG TABLET PO PRN (20:33)
[2020-05-19] MEDS: haloperidoL 5 MG TABLET PO PRN (02:26)
[2020-05-19] MEDS: *HR* LORazepam 1 MG TABLET PO PRN (02:26)
[2020-05-19] MEDS: ARIPiprazole 10 MG TABLET PO SCH (08:44)
[2020-05-19] MEDS: ARIPiprazole 5 MG TABLET PO SCH (08:44)
[2020-05-19] MEDS: Nicotine 21 MG PATCH.TD24 TD SCH (08:45)
[2020-05-19] MEDS: Acetaminophen 325 MG TABLET PO PRN (20:12)
[2020-05-19] MEDS: hydrOXYzine pamoate 25 MG CAPSULE PO PRN (20:12)
[2020-05-19] MEDS: traZODone 50 MG TABLET PO PRN (20:12)
[2020-05-20] MEDS: ARIPiprazole 10 MG TABLET PO SCH (08:51)
[2020-05-20] MEDS: ARIPiprazole 5 MG TABLET PO SCH (08:52)
[2020-05-20] MEDS: Nicotine 21 MG PATCH.TD24 TD SCH (08:52)
[2020-05-20] MEDS: Acetaminophen 325 MG TABLET PO PRN (15:08)
[2020-05-20] MEDS: traZODone 50 MG TABLET PO PRN (20:12)
[2020-05-20] MEDS: hydrOXYzine pamoate 25 MG CAPSULE PO PRN (20:13)
[2020-05-21] MEDS: Acetaminophen 325 MG TABLET PO PRN ×2 (03:53→20:03)
[2020-05-21] MEDS: ARIPiprazole 10 MG TABLET PO SCH (09:12)
[2020-05-21] MEDS: ARIPiprazole 5 MG TABLET PO SCH (09:12)
[2020-05-21] MEDS: Nicotine 21 MG PATCH.TD24 TD SCH (09:12)
[2020-05-21] MEDS: *HR* LORazepam 1 MG TABLET PO PRN (11:54)
[2020-05-21] MEDS: haloperidoL 5 MG TABLET PO PRN (11:54)
[2020-05-21] MEDS: hydrOXYzine pamoate 25 MG CAPSULE PO PRN (20:03)
[2020-05-21] MEDS: traZODone 50 MG TABLET PO PRN (20:03)
[2020-05-22] MEDS: ARIPiprazole 5 MG TABLET PO SCH (08:29)
[2020-05-22] MEDS: ARIPiprazole 10 MG TABLET PO SCH (08:29)
[2020-05-22] MEDS: Nicotine 21 MG PATCH.TD24 TD SCH (08:30)
[2020-05-22] MEDS: haloperidoL 5 MG TABLET PO PRN (12:17)
[2020-05-22] MEDS: *HR* LORazepam 1 MG TABLET PO PRN (12:17)
[2020-05-22] MEDS: hydrOXYzine pamoate 25 MG CAPSULE PO PRN (20:22)
[2020-05-22] MEDS: traZODone 50 MG TABLET PO PRN (20:22)
[2020-05-22] MEDS: Acetaminophen 325 MG TABLET PO PRN (20:22)
[2020-05-23] MEDS: ARIPiprazole 10 MG TABLET PO SCH (08:23)
[2020-05-23] MEDS: Nicotine 21 MG PATCH.TD24 TD SCH (08:24)
[2020-05-23] MEDS: Acetaminophen 325 MG TABLET PO PRN ×2 (09:57→19:43)
[2020-05-23] MEDS: hydrOXYzine pamoate 25 MG CAPSULE PO PRN (20:18)
[2020-05-23] MEDS: traZODone 50 MG TABLET PO PRN (20:20)
[2020-05-24] MEDS: ARIPiprazole 10 MG TABLET PO SCH (08:40)
[2020-05-24] MEDS: Nicotine 21 MG PATCH.TD24 TD SCH (08:41)
[2020-05-24] MEDS: hydrOXYzine pamoate 25 MG CAPSULE PO PRN (15:06)
[2020-05-24] MEDS: Acetaminophen 325 MG TABLET PO PRN (15:06)
[2020-05-24] MEDS: traZODone 50 MG TABLET PO PRN (20:03)
[2020-05-25] MEDS: hydrOXYzine pamoate 25 MG CAPSULE PO PRN ×2 (03:16→20:20)
[2020-05-25] MEDS: ARIPiprazole 10 MG TABLET PO SCH (08:20)
[2020-05-25] MEDS: Nicotine 21 MG PATCH.TD24 TD SCH (08:21)
[2020-05-25] MEDS: Acetaminophen 325 MG TABLET PO PRN (11:25)
[2020-05-25] MEDS: haloperidoL 5 MG TABLET PO PRN (12:34)
[2020-05-25] MEDS: traZODone 50 MG TABLET PO PRN (20:20)
[2020-05-26] MEDS: Nicotine 21 MG PATCH.TD24 TD SCH (08:20)
[2020-05-26] MEDS: ARIPiprazole 10 MG TABLET PO SCH (08:20)
[2020-05-26] MEDS: ARIPiprazole 5 MG TABLET PO SCH (08:20)
[2020-05-26] MEDS: Mag Hydrox/Al Hydrox/Simeth 30 ML UDC PO PRN (15:32)
[2020-05-26] MEDS: traZODone 50 MG TABLET PO PRN (20:06)
[2020-05-26] MEDS: hydrOXYzine pamoate 25 MG CAPSULE PO PRN (20:06)
[2020-05-27] MEDS: Nicotine 21 MG PATCH.TD24 TD SCH (09:09)
[2020-05-27] MEDS: ARIPiprazole 10 MG TABLET PO SCH (09:10)
[2020-05-27] MEDS: ARIPiprazole 5 MG TABLET PO SCH (09:10)
[2020-05-27] MEDS: Acetaminophen 325 MG TABLET PO PRN (09:50)
[2020-05-27] MEDS: Mag Hydrox/Al Hydrox/Simeth 30 ML UDC PO PRN (10:57)
[2020-05-27] MEDS: hydrOXYzine pamoate 25 MG CAPSULE PO PRN (20:50)
[2020-05-27] MEDS: traZODone 50 MG TABLET PO PRN (20:52)
[2020-05-28] MEDS: ARIPiprazole 5 MG TABLET PO SCH (08:23)
[2020-05-28] MEDS: ARIPiprazole 10 MG TABLET PO SCH (08:23)
[2020-05-28] MEDS: Nicotine 21 MG PATCH.TD24 TD SCH (08:24)
[2020-05-28] MEDS: hydrOXYzine pamoate 25 MG CAPSULE PO PRN ×2 (11:44→20:12)
[2020-05-28] MEDS: Acetaminophen 325 MG TABLET PO PRN ×2 (11:44→20:11)
[2020-05-28] MEDS: Mag Hydrox/Al Hydrox/Simeth 30 ML UDC PO PRN (11:44)
[2020-05-28] MEDS: Sulfamethoxazole/Trimeth DS 1 EACH TABLET PO SCH (17:28)
[2020-05-28] MEDS: traZODone 50 MG TABLET PO PRN (20:11)
[2020-05-29] MEDS: Acetaminophen 325 MG TABLET PO PRN ×3 (04:58→18:12)
[2020-05-29] MEDS: Sulfamethoxazole/Trimeth DS 1 EACH TABLET PO SCH ×2 (08:31→20:59)
[2020-05-29] MEDS: ARIPiprazole 10 MG TABLET PO SCH (08:31)
[2020-05-29] MEDS: Nicotine 21 MG PATCH.TD24 TD SCH (08:31)
[2020-05-29] MEDS: ARIPiprazole 5 MG TABLET PO SCH (08:31)
[2020-05-29] MEDS: Mag Hydrox/Al Hydrox/Simeth 30 ML UDC PO PRN ×2 (14:24→19:33)
[2020-05-29] MEDS: Ibuprofen 400 MG TABLET PO PRN (20:58)
[2020-05-29] MEDS: hydrOXYzine pamoate 25 MG CAPSULE PO PRN (20:59)
[2020-05-29] MEDS: traZODone 50 MG TABLET PO PRN (20:59)
[2020-05-30] MEDS: ARIPiprazole 10 MG TABLET PO SCH (08:29)
[2020-05-30] MEDS: ARIPiprazole 5 MG TABLET PO SCH (08:29)
[2020-05-30] MEDS: Sulfamethoxazole/Trimeth DS 1 EACH TABLET PO SCH ×2 (08:30→20:32)
[2020-05-30] MEDS: Nicotine 21 MG PATCH.TD24 TD SCH (08:30)
[2020-05-30] MEDS: Ibuprofen 400 MG TABLET PO PRN ×2 (08:30→15:18)
[2020-05-30] MEDS: Mag Hydrox/Al Hydrox/Simeth 30 ML UDC PO PRN (11:22)
[2020-05-30] MEDS: haloperidoL 5 MG TABLET PO PRN (17:35)
[2020-05-30] MEDS: hydrOXYzine pamoate 25 MG CAPSULE PO PRN (20:32)
[2020-05-30] MEDS: traZODone 50 MG TABLET PO PRN (20:32)
[2020-05-30] MEDS: Acetaminophen 325 MG TABLET PO PRN (20:32)
[2020-05-31] MEDS: Sulfamethoxazole/Trimeth DS 1 EACH TABLET PO SCH ×2 (08:54→20:59)
[2020-05-31] MEDS: ARIPiprazole 5 MG TABLET PO SCH (08:54)
[2020-05-31] MEDS: Acetaminophen 325 MG TABLET PO PRN ×3 (08:55→21:01)
[2020-05-31] MEDS: ARIPiprazole 10 MG TABLET PO SCH (08:55)
[2020-05-31] MEDS: Nicotine 21 MG PATCH.TD24 TD SCH (08:56)
[2020-05-31] MEDS: haloperidoL 5 MG TABLET PO PRN (17:57)
[2020-05-31] MEDS: traZODone 50 MG TABLET PO PRN (20:59)
[2020-05-31] MEDS: hydrOXYzine pamoate 25 MG CAPSULE PO PRN (21:01)
[2020-06-01] MEDS: Acetaminophen 325 MG TABLET PO PRN ×2 (08:48→18:21)
[2020-06-01] MEDS: Sulfamethoxazole/Trimeth DS 1 EACH TABLET PO SCH ×2 (08:49→20:59)
[2020-06-01] MEDS: Nicotine 21 MG PATCH.TD24 TD SCH (08:49)
[2020-06-01] MEDS: ARIPiprazole 5 MG TABLET PO SCH (08:50)
[2020-06-01] MEDS: ARIPiprazole 10 MG TABLET PO SCH (08:50)
[2020-06-01] MEDS: traZODone 50 MG TABLET PO PRN (20:59)
[2020-06-02] MEDS: haloperidoL 5 MG TABLET PO PRN (02:28)
[2020-06-02] MEDS: Sulfamethoxazole/Trimeth DS 1 EACH TABLET PO SCH ×2 (08:45→21:11)
[2020-06-02] MEDS: Acetaminophen 325 MG TABLET PO PRN (08:45)
[2020-06-02] MEDS: hydrOXYzine pamoate 25 MG CAPSULE PO PRN ×2 (08:45→21:11)
[2020-06-02] MEDS: ARIPiprazole 10 MG TABLET PO SCH (09:12)
[2020-06-02] MEDS: Nicotine 21 MG PATCH.TD24 TD SCH (09:13)
[2020-06-02] MEDS: traZODone 50 MG TABLET PO PRN (21:11)
[2020-06-02] MEDS: Ibuprofen 400 MG TABLET PO PRN (21:11)
[2020-06-03] MEDS: Sulfamethoxazole/Trimeth DS 1 EACH TABLET PO SCH (08:45)
[2020-06-03] MEDS: ARIPiprazole 10 MG TABLET PO SCH (08:47)
[2020-06-03] MEDS: Nicotine 21 MG PATCH.TD24 TD SCH (09:19)
[2020-06-03] MEDS: hydrOXYzine pamoate 25 MG CAPSULE PO PRN (09:20)
[2020-06-03] MEDS: Acetaminophen 325 MG TABLET PO PRN (09:20)
[2020-06-03 10:01] VITALS: BP 138/77
== END 2020-06-03 13:50 | disposition other institution (70) | DRG 885 ==
LOC: EMEROOARM 18:07 → 1ANU 18:07
PROVIDERS: ADMIT Psychiatry & Neurology Psychiatry; ATTEND Psychiatry & Neurology Psychiatry